=== PATIENT | male | born 1960 | race Caucasian/White ===

== ENCOUNTER 2016-05-29 20:25 | Inpatient (IN) ==
--- NOTE | 2016-05-29 21:36 | Emergency Department Note ---
Disposition Clinical Impression: Diabetes Qualifiers: Diabetes mellitus type: type 1 Diabetes mellitus complication status: with unspecified complications Qualified Code(s): E10.8 - Type 1 diabetes mellitus with unspecified complications Cellulitis, leg Qualifiers: Laterality: right Qualified Code(s): L03.115 - Cellulitis of right lower limb Disposition: Admitted As Inpatient Condition: Fair Referrals: NO,PCP [Primary Care Provider] - Forms: ED Satisfaction Letter Time of Disposition: 22:13 Extremity Problem HPI - General Chief complaint: ED Extremity Problem,Nontraumatic Stated complaint: cellulitis right leg Time Seen by Provider: 05/29/16 21:30 Source: patient Mode of arrival: ambulatory Limitations: no limitations Nursing Notes Reviewed: Yes Vital Signs Reviewed: Yes - History of Present Illness HPI Narrative: 56-year-old with right leg pain and swelling with redness and warmth to touch that began last couple of days. Patient saw Dr. Mc who lanced a abscess on the bottom of his foot on Thursday. Noted some redness and swelling. Patient does have a history of blood clots and is on Coumadin. Pt Subjective Complaint: extremity pain, extremity swelling Onset (ago): day(s) Consistency: constant Injury Location: right, lower extremity Pain Scale: 9 Quality: aching Radiation: none Improves with: nothing Worsens with: nothing - Related Data Home Medications Medication Instructions Recorded Confirmed Allopurinol [Zyloprim 100 MG] 100 mg PO DAILY 05/10/15 01/10/16 Aspirin [Adult Low Dose Aspirin EC] 81 mg PO DAILY 05/10/15 01/10/16 Cholecalciferol (Vitamin D3) 5,000 unit PO DAILY 05/10/15 01/10/16 [Vitamin D3] Exenatide [Byetta] 10 mcg SQ BID 05/10/15 01/10/16 Gabapentin [Neurontin] 300 mg PO BID 05/10/15 01/10/16 Insulin Glargine [Lantus] 70 units SQ BID 05/10/15 01/10/16 Insulin Human Regular [HumuLIN R] 25 units SQ TIDWM 05/10/15 01/10/16 Isosorbide MONOnitrate (24 HR) 30 mg PO DAILY 05/10/15 01/10/16 [Imdur] Levothyroxine Sodium [Synthroid] 200 mcg PO DAILY 05/10/15 01/10/16 Metoprolol [Lopressor] 100 mg PO BID 05/10/15 01/10/16 Rosuvastatin [Crestor] 40 mg PO DAILY 05/10/15 01/10/16 Nitroglycerin [Nitrostat] 0.4 mg SL AD PRN 07/15/15 01/10/16 Omeprazole [PriLOSEC] 40 mg PO DAILY 01/10/16 01/10/16 Warfarin [Coumadin] 10 mg PO QPM 01/10/16 01/10/16 Previous Rx's Medication Instructions Recorded Furosemide [Lasix] 80 mg PO BID 30 Days 07/19/15 Amlodipine [Norvasc] 10 mg PO DAILY #60 tablet 08/08/15 Lisinopril [Zestril] 10 mg PO DAILY #30 tablet 08/08/15 Cephalexin [Keflex] 250 mg PO BID 5 Days 01/13/16 Tramadol HCl [Ultram] 50 mg PO QID PRN #20 tab 03/30/16 HYDROcodone/Acet 5/325 mg [[place] 1 tab PO Q6H PRN #10 tab 05/26/16 5-325 mg] Allergies Allergy/AdvReac Type Severity Reaction Status Date / Time Iodinated Contrast Media - Allergy Swelling Verified 05/29/16 21:03 Oral and of Lip/Tongue/Throat Constitutional: Reports: chills. Denies: fever, weakness, weight change Eyes: Denies: eye pain, eye discharge, vision change ENT ED: Denies: ear pain, throat pain, dental pain, hearing loss, epistaxis, congestion, dysphagia Cardiovascular: Denies: chest pain, palpitations, dyspnea on exertion, edema, syncope Respiratory: Denies: cough, dyspnea, wheezes, hemoptysis, stridor Gastrointestinal: Denies: abdominal pain, nausea, vomiting, diarrhea, constipation, hematemesis, melena, hematochezia Genitourinary: Denies: urgency, dysuria, frequency, hematuria Musculoskeletal: Reports: arthralgia. Denies: back pain, neck pain, myalgia Integumentary: Denies: rash, abrasion, lesions Neurological: Denies: headache, weakness, numbness, paresthesias, confusion, abnormal gait, vertigo Psychiatric: Denies: anxiety, depression, suicidal thoughts, homicidal thoughts , auditory hallucinations, visual hallucinations Endocrine: Denies: fatigue Hematological/Lymphatic: Denies: easy bleeding, easy bruising Allergic/Immunologic: Denies: facial swelling, urticaria Past Medical History - Past Medical History Medical history: Reports: arthritis, atrial fibrillation, CHF, COPD, coronary artery disease, DVT, diabetes, GERD, hyperlipidemia, hypertension, kidney stones , myocardial infarction, osteoporosis, peripheral artery disease, renal disease , thyroid disease, venous stasis, other Surgical history: Reports: angioplasty/stent, LE vascular intervention, orthopedic, other, other Psychiatric history: Reports: no psych history - Social History Smoking Status: Former smoker Smokeless Tobacco Status: No Alcohol use: Reports: none Drug use: Reports: none Physical Exam - General Limitations: no limitations General appearance: alert, in no apparent distress - Head Head exam: atraumatic, normocephalic, normal inspection - Eye Eye exam: Present: normal appearance - ENT ENT exam: normal exam, normal oropharynx, mucous membranes moist - Neck Neck exam: Present: normal inspection, full ROM, trachea midline - Respiratory Respiratory exam: Present: normal lung sounds bilaterally - Cardiovascular Cardiovascular exam: Present: regular rate, normal rhythm, normal heart sounds - Abdominal Exam Abdominal exam: Present: soft, Non-Tender. Absent: tenderness, distention, guarding, rebound, rigidity - Expanded Lower Extremity Exam Lower leg exam: Present: tenderness, erythema (Anteriorly warm to touch) Neurovascular/Tendon exam: Absent: motor deficit, sensory deficit, tendon deficit Gait: observed and normal - Back Exam Back exam: Present: normal inspection, full ROM. Absent: tenderness - Neurological Exam Neurological exam: Present: alert, oriented X3 - Psychiatric Psychiatric exam: Present: normal affect, normal mood - Skin Skin exam: Present: warm, dry, intact, normal color Course - Reevaluation(s) Reevaluation #1: 56-year-old with a history of diabetes comes in with increasing redness anterior right lower leg. Warm to touch. Consistent with cellulitis. Glucose is elevated at 600. Patient will be admitted for IV antibiotics and treatment of his hyperglycemia. The patient's CO2 on his Chem-7 is 26 does not appear to be acidotic. Time: 22:19 - Consultations Consultation #1: Discussed with , admit. Time: 22:19 Vital Signs Temperature 98.9 F 05/29/16 20:58 Pulse Rate 85 05/29/16 20:58 Respiratory Rate 20 05/29/16 20:58 Blood Pressure 167/77 05/29/16 20:58 O2 Sat by Pulse Oximetry 96 05/29/16 20:58 Temperature 98.9 F 05/29/16 20:58 Pulse Rate 93 05/29/16 22:25 Respiratory Rate 18 05/29/16 22:25 Blood Pressure 179/87 05/29/16 22:25 O2 Sat by Pulse Oximetry 96 05/29/16 20:58 Oxygen Delivery Oxygen Delivery Room Air Extremity Problem, Nontraumati - Lab Data Lab results reviewed: Yes I reviewed the patient's lab results. Result diagrams: 05/29/16 21:46 05/29/16 21:46 Lab Results 05/29/16 05/29/16 05/29/16 Range/Units 21:46 21:46 21:46 WBC 9.7 (4.3-11.1) K/mcL RBC 3.99 L (4.19-5.50) M/mcL Hgb 11.5 L (12.9-16.9) g/dL Hct 34.7 L (37.5-50.1) % MCV 87.0 (83.0-100.0) fL MCH 28.8 (28.0-33.3) pg MCHC 33.1 (31.6-35.5) g/dL RDW 13.7 (11.5-14.5) % Plt Count 232 (140-400) K/mcL MPV 10.2 (9.4-12.4) fL Immature Gran % 0.4 (0-4) % Seg Neutrophils % 69.3 % Lymphocytes % 14.8 % Monocytes % 9.5 % Eosinophils % 5.4 % Basophils % 0.6 % Neutrophils # 6.7 (1.6-8.9) K/mcL Lymphocytes # 1.4 (0.6-4.6) K/mcL Monocytes # 0.9 (0.0-1.3) K/mcL Eosinophils # 0.5 (0.0-0.6) K/mcL Basophils # 0.1 (0.0-0.2) K/mcL Immature Plt Fraction 4.5 (1.1-6.1) % ESR 104 H (0-10) mm/hr Sodium 133 L (136-145) mEq/L Potassium 4.4 (3.5-4.5) mEq/L Chloride 93 L (98-109) mEq/L Carbon Dioxide 26 (19-29) mEq/L BUN 74 H (8-26) mg/dL Creatinine 3.69 H (0.72-1.25) mg/dL Est GFR ( Amer) 21 L (> 60) Est GFR (Non-Af Amer) 17 L (> 60) BUN/Creatinine Ratio 20 (6-26) Glucose 647 H* (70-99) mg/dL Calculated Osmolality 328 H (280-300) Calcium 9.0 (8.6-10.8) mg/dL Beta-Hydroxybutyric Acd (0.02-0.27) mmol/L 05/29/16 Range/Units 21:46 WBC (4.3-11.1) K/mcL RBC (4.19-5.50) M/mcL Hgb (12.9-16.9) g/dL Hct (37.5-50.1) % MCV (83.0-100.0) fL MCH (28.0-33.3) pg MCHC (31.6-35.5) g/dL RDW (11.5-14.5) % Plt Count (140-400) K/mcL MPV (9.4-12.4) fL Immature Gran % (0-4) % Seg Neutrophils % % Lymphocytes % % Monocytes % % Eosinophils % % Basophils % % Neutrophils # (1.6-8.9) K/mcL Lymphocytes # (0.6-4.6) K/mcL Monocytes # (0.0-1.3) K/mcL Eosinophils # (0.0-0.6) K/mcL Basophils # (0.0-0.2) K/mcL Immature Plt Fraction (1.1-6.1) % ESR (0-10) mm/hr Sodium (136-145) mEq/L Potassium (3.5-4.5) mEq/L Chloride (98-109) mEq/L Carbon Dioxide (19-29) mEq/L BUN (8-26) mg/dL Creatinine (0.72-1.25) mg/dL Est GFR ( Amer) (> 60) Est GFR (Non-Af Amer) (> 60) BUN/Creatinine Ratio (6-26) Glucose (70-99) mg/dL Calculated Osmolality (280-300) Calcium (8.6-10.8) mg/dL Beta-Hydroxybutyric Acd 0.26 (0.02-0.27) mmol/L - Radiology Data Radiology results reviewed: Yes I reviewed the patient's radiology results. Tibia/Fibula X-Ray 05/29/16 21:33 IMPRESSION: Generalized soft tissue swelling/edema without underlying acute osseous abnormality. D/ / 05/29/2016 22:21:18 Lurdes Hagan MD / keyona Interpreting Provider: Lurdes Hagan MD As Doppler was negative for DVT
[2016-05-29 21:53] LABS: Basophils # 0.1 K/mcL (0.0-0.2); Basophils % 0.6 %; Eosinophils # 0.5 K/mcL (0.0-0.6); Eosinophils % 5.4 %; Hematocrit 34.7 % (37.5-50.1); Hemoglobin 11.5 g/dL (12.9-16.9); Immature Granulocytes % 0.4 % (0-4); Immature Platelets 4.5 % (1.1-6.1); Lymphocytes # 1.4 K/mcL (0.6-4.6); Lymphocytes % 14.8 %; Mean Corpuscular HGB Conc 33.1 g/dL (31.6-35.5); Mean Corpuscular Hemoglobin 28.8 pg (28.0-33.3); Mean Platelet Volume 10.2 fL (9.4-12.4); Monocytes # 0.9 K/mcL (0.0-1.3); Monocytes % 9.5 %; Neutrophils # 6.7 K/mcL (1.6-8.9); Platelet Count 232 K/mcL (140-400); Red Blood Count 3.99 M/mcL (4.19-5.50); Red Cell Distribution Width 13.7 % (11.5-14.5); Segmented Neutrophils % 69.3 %
[2016-05-29 22:04] LABS: Potassium 4.4 mEq/L (3.5-4.5)
[2016-05-29] MEDS ORDERED: Insulin Human Regular 10 UNIT in 0.9 % Sodium Chloride 10 ML IV ONE (22:11)
[2016-05-29] MEDS ORDERED: Piperacillin/Tazobactam 3.375 GM in D5% in Water (Mini-Bag+) 100 ML IVPB ONE (22:13)
[2016-05-29] MEDS ORDERED: 0.9 % Sodium Chloride 500 ML IVC ONE (23:59)
[2016-05-30] MEDS ORDERED: Nitroglycerin 0.4 MG TAB.SUBL SL PRN (02:25)
[2016-05-30] MEDS ORDERED: *HR* Dextrose 50 % in Water (Syg) 50 ML SYRINGE IVP PRN (02:27)
[2016-05-30] MEDS ORDERED: Dextrose Gel 15 GM PO PRN ×2 (02:27)
[2016-05-30] MEDS ORDERED: D5% in Water 1,000 ML IVC PRN (02:27)
[2016-05-30] MEDS ORDERED: Naloxone 0.4 MG/ML INJ IVP PRN (02:28)
[2016-05-30] MEDS ORDERED: Acetaminophen 325 MG TABLET PO PRN (02:30)
--- NOTE | 2016-05-30 02:37 | Internal Med History&Physical ---
Date of Encounter: 05/30/16 Time of Encounter: 02:00 Assessment and Plan (1) Cellulitis Current visit: Yes Status: Acute We will treat him with vancomycin and Zosyn. Qualifiers: Site of cellulitis: extremity Site of cellulitis of extremity: lower extremity Laterality: right Qualified Code(s): L03.115 - Cellulitis of right lower limb (2) Chronic kidney disease, stage IV (severe) Current visit: Yes Status: Chronic Avoid nephrotoxic medications. Monitor renal function (3) PETE (obstructive sleep apnea) Current visit: Yes Status: Chronic Pt does not want CPAP tonight. Will resume home CPAP settings from tomorrow. (4) Diabetes mellitus Current visit: Yes Status: Chronic Patient has hypoglycemia and seem to have poor control. Will check hemoglobin A1c. Resume home insulin dosing and start sliding scale insulin. Qualifiers: Diabetes mellitus type: type 2 Diabetes mellitus complication status: with kidney complications Diabetes mellitus complication detail: with chronic kidney disease Diabetes mellitus usp insulin use: with intermediate frame tender use Chronic kidney disease stage: stage 4 (severe) Qualified Code(s): E11.22 - Type 2 diabetes mellitus with diabetic chronic kidney disease; N18.4 - Chronic kidney disease, stage 4 (severe); Z79.4 - intermediate frame tender (current) use of insulin (5) Venous stasis dermatitis of both lower extremities Current visit: Yes Status: Chronic (6) Hyperglycemia Current visit: Yes Status: Acute Pt seem to have uncontrolled DM. High dose sliding scale insulin and close monitoring of accuchecks (7) CAD (coronary artery disease) Current visit: Yes Status: Chronic Continue home medications Qualifiers: Coronary Disease-Associated Artery/Lesion type: [place] artery [place] vs. transplanted heart: [place] heart Associated angina: without angina Qualified Code(s): I25.10 - Atherosclerotic heart disease of [place] coronary artery without angina pectoris (8) Chronic anticoagulation Current visit: Yes Status: Chronic Monitor INR and warfarin dosing per pharmacy Internal Medicine - H&P: HPI Chief complaint: Right leg pain Admitted From: Emergency Dept Plans for Post Hospital Care: Home History of present illness: Mr. Oneal is a 56 year old male with past medical history significant for insulin-dependent diabetes mellitus, peripheral neuropathy, hypertension, CKD, CAD, CHF, DVT / venous stasis, atrial fibrillation - on anticoagulant warfarin, PETE - on home CPAP. He apparently had right foot abscess drained by Dr Mc, on 05/27/16. He apparently noticed redness and pain of the right leg on . Reports burning pain (7/10) and itching of the right leg; non radiating; had associated subjective fever at home. No worsening on weight bearing. He denies chest pain, shortness of breath, abdominal pain, dysuria, hematuria, bowel problems. He was evaluated in the emergency department and except right leg showed generalized soft tissue swelling/edema without underlying acute osseous abnormality. Preliminary report on venous Doppler was negative for DVT. He was given Zosyn for cellulitis and admitted to the hospitalist service for further management Past Med Surg Social Fam HX - Past Medical History Medical history: arthritis, atrial fibrillation, CHF, COPD, coronary artery disease, DVT, diabetes, GERD, hyperlipidemia, hypertension, kidney stones, myocardial infarction, osteoporosis, peripheral artery disease, renal disease, thyroid disease, venous stasis, other Psychiatric history: no psych history - Past Surgical History Surgical History: angioplasty/stent, LE vascular intervention, orthopedic, other , other - Social History Smoking Status: Former smoker Smokeless Tobacco Status: No Alcohol use: none Drug use: none - Family History Mother Living Status: Hx Family Cancer: Yes (Stomach Cancer) Hx Family Endocrine Disorder: Yes Father Living Status: Hx Family Cardiac Disorders: Yes ([place]) Hx Family Cancer: Yes Hx Family Endocrine Disorder: Yes Internal Medicine - H&P: Meds Allopurinol [Zyloprim 100 MG] 100 mg PO DAILY 05/10/15 [History] Aspirin [Adult Low Dose Aspirin EC] 81 mg PO DAILY 05/10/15 [History] Cholecalciferol (Vitamin D3) [Vitamin D3] 5,000 unit PO DAILY 05/10/15 [History] Gabapentin [Neurontin] 300 mg PO BID 05/10/15 [History] Insulin Human Regular [HumuLIN R] 0 units SQ TIDWM 05/10/15 [History] Isosorbide MONOnitrate (24 HR) [Imdur] 30 mg PO DAILY 05/10/15 [History] Levothyroxine Sodium [Synthroid] 200 mcg PO QAM 05/10/15 [History] Rosuvastatin [Crestor] 40 mg PO HS 05/10/15 [History] Nitroglycerin [Nitrostat] 0.4 mg SL AD PRN 07/15/15 [History] Furosemide [Lasix] 80 mg PO BID 30 Days 07/19/15 [Rx] Amlodipine [Norvasc] 10 mg PO DAILY #60 tablet 08/08/15 [Rx] Lisinopril [Zestril] 10 mg PO DAILY #30 tablet 08/08/15 [Rx] Omeprazole [PriLOSEC] 40 mg PO DAILY 01/10/16 [History] Warfarin [Coumadin] 10 mg PO QPM 01/10/16 [History] Calcitriol [Rocaltrol] 0.25 mcg PO DAILY 05/29/16 [History] Insulin Glargine,Hum.rec.anlog [Basaglar Kwikpen U-100] 50 unit SQ BID 05/29/16 [History] Metoprolol Succinate 100 mg PO DAILY 05/29/16 [History] Allergies Iodinated Contrast Media - Oral and Allergy (Verified 05/29/16 21:03) Swelling of Lip/Tongue/Throat All Systems PM: A 10-system review of systems was performed and is negative for pertinent findings except as documented above in the HPI. - Constitutional Vitals: Temp Pulse Resp BP Pulse Ox 99.5 F 88 18 155/73 94 05/30/16 00:15 05/30/16 00:15 05/30/16 00:15 05/30/16 00:15 05/30/16 00:15 Exam: General: Not in acute distress at the time of my evaluation. Obese HEENT: Oral mucosa is dry. No conjunctival palor or scleral icterus Neck: No obvious neck swellings Lungs: Clear to auscultation Cardiac: Regular rate and rhythm. No significant murmurs Abdomen: Soft, non tender. Bowel sounds present Genitourinary: No zimmer catheter Neurological: Alert and oriented. No gross localizing deficits Psych: Not aggressive or agitated Extremities: There is bilateral lower extremity swelling, changes of chronic venous stasis. There is erythema, local warmth, tenderness of the right leg, extending below the knee. This dressing the right foot. Skin: Chronic changes of venous stasis of the lower extremities Internal Med - H&P Results - Labs CBC & Chem 7: 05/29/16 21:46 05/29/16 21:46 - Impressions ITS Impressions Tibia/Fibula X-Ray 04/20/17 21:33 IMPRESSION: Generalized soft tissue swelling/edema without underlying acute osseous abnormality. D/ / 05/29/2016 22:21:18 Lureds Hagan MD / keyona Interpreting Provider: Lurdes Hagan MD - VTE Reasons for not Prescribing Prophylaxis: Not indicated-Anticoagulated or INR therapeutic
[2016-05-30] MEDS ORDERED: Vancomycin 2,000 MG in D5% in Water 250 ML IVPB SCH (03:00)
[2016-05-30 04:14] LABS: Basophils # 0.1 K/mcL (0.0-0.2); Basophils % 0.5 %; Eosinophils # 0.3 K/mcL (0.0-0.6); Eosinophils % 2.8 %; Hemoglobin 11.1 g/dL (12.9-16.9); Immature Granulocytes % 0.6 % (0-4); Lymphocytes # 1.1 K/mcL (0.6-4.6); Lymphocytes % 9.6 %; Mean Corpuscular HGB Conc 32.6 g/dL (31.6-35.5); Mean Corpuscular Hemoglobin 28.5 pg (28.0-33.3); Mean Corpuscular Volume 87.4 fL (83.0-100.0); Mean Platelet Volume 10.8 fL (9.4-12.4); Monocytes # 0.9 K/mcL (0.0-1.3); Monocytes % 8.5 %; Neutrophils # 8.5 K/mcL (1.6-8.9); Platelet Count 205 K/mcL (140-400); Red Blood Count 3.89 M/mcL (4.19-5.50); Red Cell Distribution Width 13.9 % (11.5-14.5)
[2016-05-30 04:16] LABS: INR 2.7; Prothrombin Time 29.7 Seconds (9.4-12.1)
[2016-05-30] MEDS: Vancomycin 2,000 MG in D5% in Water 500 ML IVPB SCH (04:25)
[2016-05-30 04:32] LABS: Hemoglobin A1C 12.8 %
[2016-05-30 04:35] LABS: Calcium 8.7 mg/dL (8.6-10.8); Magnesium 1.8 mg/dL (1.6-2.6); Potassium 4.4 mEq/L (3.5-4.5)
[2016-05-30] MEDS ORDERED: Insulin LISPRO 300 UNITS/3 ML VIAL SQ ONE (05:35)
[2016-05-30] MEDS: Insulin LISPRO 300 UNITS/3 ML VIAL SQ SCH ×5 (07:51→17:20)
[2016-05-30] MEDS: Metoprolol XL (24 HR) Succ 50 MG TAB.ER.24H PO SCH (07:52)
[2016-05-30] MEDS: Aspirin Enteric Coated 81 MG Tablet PO SCH (07:53)
[2016-05-30] MEDS: Gabapentin 300 MG CAPSULE PO SCH ×2 (07:53→22:14)
[2016-05-30] MEDS: Isosorbide MONOnitrate (24 HR) 30 MG TAB.ER.24H PO SCH (07:53)
[2016-05-30] MEDS: Cholecalciferol (D-3) 1,000 UNIT TABLET PO SCH (07:53)
[2016-05-30] MEDS: Furosemide 40 MG TABLET PO SCH ×2 (07:54→17:19)
[2016-05-30] MEDS: amLODIPine 5 MG TABLET PO SCH (07:54)
[2016-05-30] MEDS ORDERED: NON-FORMULARY MEDICATION 1 EACH EACH (Insulin Glargine,Hum.Rec.Anlog [Basaglar Kwikpen U-1 SQ SCH (09:00)
[2016-05-30] MEDS ORDERED: Insulin DETEMIR 100 UNIT/ML X5UNITS SQ SCH (09:00)
[2016-05-30] MEDS ORDERED: Piperacillin/Tazobactam 3.375 GM in D5% in Water (Mini-Bag+) 100 ML IVPB SCH ×2 (10:00)
--- NOTE | 2016-05-30 14:05 | Event Note ---
Date of Encounter: 05/30/16 Time of Encounter: 09:30 Patient seen and examined. On examination, patient is sitting upright on the side of his bed. Patient sustained the redness and swelling in his legs appears better. He states he does not have much sensation to his foot and states ambulation is not painful at this time. Per his chart, Dr. Mc to debrided his right foot wound on 05/27/16. He states the day following this procedure that he started to develop pain and erythema to his right lower leg. We will continue vancomycin and Zosyn. Wound cultured at this time. Tib-fib plain films consistent with soft tissue swelling. Doppler ultrasound negative for DVT. Market hyperglycemia noted. A1c 12.8%. Patient saying that his glucometer at home often reads "high." I have increased his basal and his sliding scale dosages. Hypertension noted this morning, patient currently normotensive. Patient has stage IV renal disease, currently stable. He states he has had a graft placed in his left arm in anticipation for dialysis. Patient was instructed to try to control the sugars however patient stating that he wants to have dialysis because he feels as if it will "clean me out." We will continue broad-spectrum coverage pending wound culture. We will get Dr. Mc on board as well for his recommendations. On examination, erythema to his right lower extremity has improved below the pen line from yesterday. ITS Impressions Tibia/Fibula X-Ray 05/29/16 21:33 IMPRESSION: Generalized soft tissue swelling/edema without underlying acute osseous abnormality. D/ / 05/29/2016 22:21:18 Lurdes Hagan MD / keyona Interpreting Provider: Lurdes Hagan MD
--- NOTE | 2016-05-30 16:40 | Podiatry Consult Note ---
Date of Encounter: 05/30/16 Time of Encounter: 16:40 Assessment and Plan (1) Diabetic ulcer of right foot Status: Chronic Dressing removed, Irrigated with saline Appears the same as assessed in office No appearance of infection at this time No warmth, edema, erythema to periwound and no drainage noted at this time Absence of white count Will order CRP Continue daily dressing changes to wound Cleanse with saline, apply adaptic and 4x4 Please call with any issues or concerns Follow up in clinic or wound care center 1-2 weeks after discharge Glucose 500-600. Will need tight glucose control Qualifiers: Diabetic foot ulcer location: other Diabetes mellitus type: type 2 Non- pressure ulcer stage: unspecified non-pressure ulcer stage Qualified Code(s): E11.621 - Type 2 diabetes mellitus with foot ulcer; L97.519 - Non-pressure chronic ulcer of other part of right foot with unspecified severity (2) Cellulitis, leg Status: Acute Qualifiers: Laterality: right Qualified Code(s): L03.115 - Cellulitis of right lower limb (3) Diabetes Status: Acute Qualifiers: Diabetes mellitus type: type 1 Diabetes mellitus complication status: with skin complications Diabetes mellitus complication detail: with foot ulcer Qualified Code(s): E10.621 - Type 1 diabetes mellitus with foot ulcer; L97.509 - Non-pressure chronic ulcer of other part of unspecified foot with unspecified severity (4) Chronic kidney disease, stage IV (severe) Status: Chronic (5) Venous stasis dermatitis of both lower extremities Status: Chronic History of Present Illness HPI: Mr. Oneal is a 56 year old male who we have been consulted on regarding a wound to the right foot. he has a past medical history significant for uncontrolled insulin-dependent diabetes mellitus, peripheral neuropathy, hypertension, CKD, CAD, CHF, DVT / venous stasis, atrial fibrillation - on anticoagulant warfarin, PETE - on home CPAP. completed a debridement of a diabetic ulcer of the right foot on 05/27. At the time no acute infection was noted. Dressings were applied and patient to follow up. Patient presented to ED with complaints of burning, drainage and pain to the wound and redness of the RLE. On arrival today patient is awake, alert and oriented. Dressing intact to right foot wound. Patient states at home he noticed a large amount of "pus in his shoe". Patient denies any fevers chills n/v or flu like symptoms Past Med Surg Social Fam HX - Past Medical History Medical history: arthritis, atrial fibrillation, CHF, COPD, coronary artery disease, DVT, diabetes, GERD, hyperlipidemia, hypertension, kidney stones, myocardial infarction, osteoporosis, peripheral artery disease, renal disease, thyroid disease, venous stasis, other Psychiatric history: no psych history - Past Surgical History Surgical History: angioplasty/stent, LE vascular intervention, orthopedic, other , other - Social History Smoking Status: Former smoker Smokeless Tobacco Status: No Alcohol use: none Drug use: none - Family History Mother Living Status: Hx Family Cancer: Yes (Stomach Cancer) Hx Family Endocrine Disorder: Yes Father Living Status: Hx Family Cardiac Disorders: Yes ([place]) Hx Family Cancer: Yes Hx Family Endocrine Disorder: Yes Medications and Allergies Allopurinol [Zyloprim 100 MG] 100 mg PO DAILY 05/10/15 [History] Aspirin [Adult Low Dose Aspirin EC] 81 mg PO DAILY 05/10/15 [History] Cholecalciferol (Vitamin D3) [Vitamin D3] 5,000 unit PO DAILY 05/10/15 [History] Gabapentin [Neurontin] 300 mg PO BID 05/10/15 [History] Isosorbide MONOnitrate (24 HR) [Imdur] 30 mg PO DAILY 05/10/15 [History] Levothyroxine Sodium [Synthroid] 200 mcg PO QAM 05/10/15 [History] Rosuvastatin [Crestor] 40 mg PO HS 05/10/15 [History] Nitroglycerin [Nitrostat] 0.4 mg SL AD PRN 07/15/15 [History] Furosemide [Lasix] 80 mg PO BID 30 Days 07/19/15 [Rx] Amlodipine [Norvasc] 10 mg PO DAILY #60 tablet 08/08/15 [Rx] Lisinopril [Zestril] 10 mg PO DAILY #30 tablet 08/08/15 [Rx] Omeprazole [PriLOSEC] 40 mg PO DAILY 01/10/16 [History] Warfarin [Coumadin] 10 mg PO QPM 01/10/16 [History] Calcitriol [Rocaltrol] 0.25 mcg PO DAILY 05/29/16 [History] Metoprolol Succinate 100 mg PO DAILY 05/29/16 [History] Clindamycin HCl 300 mg PO Q6H #28 capsule 05/31/16 [Rx] Insulin Glargine,Hum.rec.anlog [Basaglar Kwikpen U-100] 60 unit SQ BID #1 insuln.pen 05/31/16 [Rx] Insulin Human Regular [HumuLIN R] 0 units SQ TIDWM #1 ml 05/31/16 [Rx] Insulin Human Regular [HumuLIN R] 6 unit SQ TIDWM #1 mls 05/31/16 [Rx] Allergies Iodinated Contrast Media - Oral and Allergy (Verified 05/29/16 21:03) Swelling of Lip/Tongue/Throat All Systems Reviewed: A 10-system review of systems was performed and is negative for pertinent findings except as documented above in the HPI. Physical Exam - Constitutional Vitals: Temp Pulse Resp BP Pulse Ox 98.0 F 66 18 148/64 96 05/30/16 14:41 05/30/16 14:41 05/30/16 14:41 05/30/16 14:41 05/30/16 14:41 General appearance: cooperative Exam: General Examination: CONSTITUTIONAL: Alert, oriented, in no acute distress, non-toxic. EXTREMITIES: CFT 3 seconds all toes. Edema +2 and pedal pulses palpable. Stasis dermatitis noted to BLE SKIN: Skin with decreased turgor, decreased subcutaneous tissue, skin thin and shiny with trophic changes associated with comorbidities as described in history.. NEUROLOGIC: Minimal sensation to light touch Diabetic foot ulcer noted to plantar aspect of right foot between toes #1 and # 2. Dimensions [id number]. No undermining, tunneling, fluctuance, or sinus tracts noted. No drainage noted at this time. Nurse notes that dressing was dry in AM when she changed it after shift change. No appearance of abscess formation. No warmth, erythema, edema to darci wound area. Skin surrounding wound noted to have slightly blackened edges, this is from a silver nitrate stick used after debridement of the wound. No exposed underlying structures. Small amount of yellow fibrous tissue noted to center of wound surrounded by pink granulation tissue. Results - Labs Result Diagrams: 05/31/16 05:05 05/31/16 05:05 Labs: Abnormal lab results RBC 3.89 M/mcL (4.19-5.50) L 05/30/16 03:03 Hgb 11.1 g/dL (12.9-16.9) L 05/30/16 03:03 Hct 34.0 % (37.5-50.1) L 05/30/16 03:03 ESR 104 mm/hr (0-10) H 05/29/16 21:46 PT 29.7 Seconds (9.4-12.1) H 05/30/16 03:03 Sodium 135 mEq/L (136-145) L 05/30/16 03:03 BUN 71 mg/dL (8-26) H 05/30/16 03:03 Creatinine 3.45 mg/dL (0.72-1.25) H 05/30/16 03:03 Est GFR ( Amer) 22 (> 60) L 05/30/16 03:03 Est GFR (Non-Af Amer) 18 (> 60) L 05/30/16 03:03 Glucose 573 mg/dL (70-99) H* 05/30/16 03:03 POC Glucose 430 (58-89) H* 05/30/16 16:11 Hemoglobin A1c 12.8 % (-5.6) H 05/30/16 03:03 Calculated Osmolality 327 (280-300) H 05/30/16 03:03 H & H 05/30/16 Range/Units 03:03 Hgb 11.1 L (12.9-16.9) g/dL Hct 34.0 L (37.5-50.1) % All other labs normal. Consult Discharge Plan - Plan Instructions: Clindamycin (By mouth), Insulin Human Regular (Injection), Cellulitis (DC) Additional Instructions: Follow up with wound clinic within 1-2 weeks. Referrals: Rafael Mc DPM [Partnered Physician] - Prescriptions: Clindamycin HCl 300 mg PO Q6H #28 capsule Insulin Glargine,Hum.rec.anlog [Ruben Hernandez U-100] 60 unit SQ BID #1 insuln.pen Insulin Human Regular [HumuLIN R] 0 units SQ TIDWM #1 ml Insulin Human Regular [HumuLIN R] 6 unit SQ TIDWM #1 mls
[2016-05-30] MEDS: *HR* OxyCODONE Immed Rel 5 MG TABLET PO PRN (17:18)
[2016-05-30] MEDS: Piperacillin/Tazobactam 3.375 GM in D5% in Water (Mini-Bag+) 100 ML IVPB SCH ×2 (17:20→23:54)
[2016-05-30] MEDS ORDERED: Warfarin perPT PO PRN (18:00)
[2016-05-30] MEDS ORDERED: *HR* Warfarin 10 MG TABLET PO SCH (18:00)
--- NOTE | 2016-05-30 20:28 | Venous Imaging Report ---
LE Venous Duplex Patient Name:Silviano Oneal Order Number:[id number] Procedure Date:05/29/2016 Date:1960Age:56 yrs Gender:Male Location:[facility] [place] ED Room #: ED16 Fisheries Director:Marielena Burdick Referring MD:Adam Phillips MD vacuum cleaner repair person:None Reading MD:Josiah Alford MD Study Quality:36 Primary Indications:Right Leg redness and swelling Secondary Indications: Risk Factors Yes/No Hx of DVT Anticoagulants Impressions: Right lower extremity: normal superficial and deep exam. Recommendations: Test completed on 05/29/2016 at 10:36:00 pm. Critical findings reported to Dr. Phillips-ED- by phone at 10:40:00 pm on 05/29/2016 by Marielena Burdick. Lower Extremity Venous Duplex Side Vein Compress Spontaneous Flow Augment Diameter (cm) Depth (cm) Right Distal Iliac Normal Yes Phasic Yes Right Common Femoral Normal Yes Phasic Yes Right Superficial Femoral Normal Yes Phasic Yes Right Popliteal Normal Yes Phasic Yes Right Posterior Tibial Normal Yes Phasic Yes Right Peroneal Normal Yes Phasic Yes Right Saphenofemoral [place] Normal Yes Phasic Yes Right Great Saphenous Normal Yes Phasic Yes Right Lesser Saphenous Normal Yes Phasic Yes Left Common Femoral Normal Yes Phasic Yes Updated by Josiah Alford MD on 05/30/2016 8:24:17 PM electronically signed on 05/30/2016 8:24:41 PM with status of Final
[2016-05-30] MEDS ORDERED: Insulin LISPRO 300 UNITS/3 ML VIAL SQ SCH (21:00)
[2016-05-30] MEDS: Insulin DETEMIR 100 UNIT/ML X5UNITS SQ SCH (22:14)
[2016-05-31] MEDS: Vancomycin 2,000 MG in D5% in Water 500 ML IVPB SCH (04:20)
[2016-05-31 05:35] LABS: Basophils # 0.1 K/mcL (0.0-0.2); Basophils % 0.5 %; Eosinophils # 0.7 K/mcL (0.0-0.6); Hematocrit 34.3 % (37.5-50.1); Hemoglobin 11.1 g/dL (12.9-16.9); Immature Granulocytes % 0.3 % (0-4); Lymphocytes # 1.3 K/mcL (0.6-4.6); Lymphocytes % 14.3 %; Mean Corpuscular HGB Conc 32.4 g/dL (31.6-35.5); Mean Corpuscular Hemoglobin 28.4 pg (28.0-33.3); Mean Corpuscular Volume 87.7 fL (83.0-100.0); Mean Platelet Volume 10.6 fL (9.4-12.4); Monocytes # 0.8 K/mcL (0.0-1.3); Monocytes % 8.6 %; Neutrophils # 6.2 K/mcL (1.6-8.9); Platelet Count 213 K/mcL (140-400); Red Blood Count 3.91 M/mcL (4.19-5.50); Segmented Neutrophils % 68.3 %
[2016-05-31 05:44] LABS: Calcium 8.6 mg/dL (8.6-10.8); Potassium 4.4 mEq/L (3.5-4.5)
[2016-05-31 05:52] LABS: INR 2.4; Prothrombin Time 26.7 Seconds (9.4-12.1)
[2016-05-31 07:06] VITALS: BP 124/76
[2016-05-31] MEDS: Gabapentin 300 MG CAPSULE PO SCH (07:44)
[2016-05-31] MEDS: Aspirin Enteric Coated 81 MG Tablet PO SCH (07:46)
[2016-05-31] MEDS: Isosorbide MONOnitrate (24 HR) 30 MG TAB.ER.24H PO SCH (07:47)
[2016-05-31] MEDS: Cholecalciferol (D-3) 1,000 UNIT TABLET PO SCH (07:47)
[2016-05-31] MEDS: Metoprolol XL (24 HR) Succ 50 MG TAB.ER.24H PO SCH (07:48)
[2016-05-31] MEDS: Furosemide 40 MG TABLET PO SCH (07:49)
[2016-05-31] MEDS: amLODIPine 5 MG TABLET PO SCH (07:49)
[2016-05-31] MEDS: Piperacillin/Tazobactam 3.375 GM in D5% in Water (Mini-Bag+) 100 ML IVPB SCH (07:54)
[2016-05-31] MEDS: Insulin LISPRO 300 UNITS/3 ML VIAL SQ SCH ×4 (07:57→12:08)
[2016-05-31] MEDS: *HR* OxyCODONE Immed Rel 5 MG TABLET PO PRN (08:26)
[2016-05-31] MEDS: Insulin DETEMIR 100 UNIT/ML X5UNITS SQ SCH (08:27)
--- NOTE | 2016-05-31 12:33 | Discharge Summary ---
Date of Encounter: 05/31/16 Time of Encounter: 09:45 - Discharge Diagnosis (1) Cellulitis, leg Priority: Primary Status: Acute Comments: Physical examination consistent with right lower extremity cellulitis. Treated with vancomycin and Zosyn during admission, wound culture pending at discharge, will send home on clindamycin and have him follow up outpatient with wound clinic next week. No leukocytosis. Inflammatory markers mildly elevated. Erythema and edema lessened during this admission. Qualifiers: Laterality: right Qualified Code(s): L03.115 - Cellulitis of right lower limb (2) COPD (chronic obstructive pulmonary disease) Priority: Secondary Status: Chronic Comments: No acute exacerbation Qualifiers: COPD type: unspecified COPD Qualified Code(s): J44.9 - Chronic obstructive pulmonary disease, unspecified (3) Hypothyroidism Priority: Secondary Status: Chronic Comments: TSH unremarkable last July, follow-up outpatient Qualifiers: Hypothyroidism type: unspecified Qualified Code(s): E03.9 - Hypothyroidism , unspecified (4) Chronic kidney disease, stage IV (severe) Priority: Secondary Status: Chronic Comments: Patient has graft in place for pending dialysis. Attempted to speak to the patient regarding his uncontrolled diabetes and his worsening renal function however he states that he wants to go on dialysis because he feels that will help him get cleaned out. Follow up outpatient with spouting installer. Renal function remained stable throughout this admission (5) Diabetes mellitus Priority: Secondary Status: Chronic Comments: Uncontrolled. A1c 12.8%. Patient stating that his glucometer home frequently reads high. His basal and his sliding scale insulins were increased during this admission and his glucose at time of discharge was down to 253, was above 600 upon presentation. We will increase his home doses of insulin. Attempted further education, patient not receptive of education. Qualifiers: Diabetes mellitus type: type 2 Diabetes mellitus complication status: with kidney complications Diabetes mellitus complication detail: with chronic kidney disease Diabetes mellitus long term care social worker insulin use: with shelter use Chronic kidney disease stage: stage 4 (severe) Qualified Code(s): E11.22 - Type 2 diabetes mellitus with diabetic chronic kidney disease; N18.4 - Chronic kidney disease, stage 4 (severe); Z79.4 - residential (current) use of insulin (6) Chronic anticoagulation Priority: Secondary Status: Chronic (7) Diabetic ulcer of right foot Priority: Secondary Status: Chronic Comments: Follow-up outpatient with podiatry. Qualifiers: Diabetic foot ulcer location: other Diabetes mellitus type: type 2 Non- pressure ulcer stage: unspecified non-pressure ulcer stage Qualified Code(s): E11.621 - Type 2 diabetes mellitus with foot ulcer; L97.519 - Non-pressure chronic ulcer of other part of right foot with unspecified severity (8) GERD (gastroesophageal reflux disease) Priority: Secondary Status: Chronic Comments: Denies current symptoms Qualifiers: Esophagitis presence: esophagitis presence not specified Qualified Code(s) : K21.9 - Gastro-esophageal reflux disease without esophagitis (9) PVD (peripheral vascular disease) Priority: Secondary Status: Chronic (10) Venous stasis dermatitis of both lower extremities Priority: Secondary Status: Chronic (11) Hypertension Priority: Secondary Status: Chronic Comments: Controlled on his regular home medications. Qualifiers: Hypertension type: essential hypertension Qualified Code(s): I10 - Essential (primary) hypertension (12) Sleep apnea Priority: Secondary Status: Chronic Qualifiers: Sleep apnea type: obstructive Qualified Code(s): G47.33 - Obstructive sleep apnea (adult) (pediatric) (13) CAD (coronary artery disease) Priority: Secondary Status: Chronic Comments: Patient denied chest pain throughout this admission Qualifiers: Coronary Disease-Associated Artery/Lesion type: [place] artery [place] vs. transplanted heart: [place] heart Associated angina: without angina Qualified Code(s): I25.10 - Atherosclerotic heart disease of [place] coronary artery without angina pectoris (14) DVT prophylaxis Priority: Primary Status: Acute Comments: Therapeutic on Coumadin (15) Morbid obesity with BMI of 40.0-44.9, adult Priority: Secondary Status: Chronic - Discharge Medications Prescriptions: Clindamycin HCl 300 mg PO Q6H #28 capsule Insulin Glargine,Hum.rec.anlog [Basaglar Kwikpen U-100] 60 unit SQ BID #1 insuln.pen Insulin Human Regular [HumuLIN R] 0 units SQ TIDWM #1 ml Insulin Human Regular [HumuLIN R] 6 unit SQ TIDWM #1 mls Home Medications: Allopurinol [Zyloprim 100 MG] 100 mg PO DAILY 05/10/15 [History] Aspirin [Adult Low Dose Aspirin EC] 81 mg PO DAILY 05/10/15 [History] Cholecalciferol (Vitamin D3) [Vitamin D3] 5,000 unit PO DAILY 05/10/15 [History] Gabapentin [Neurontin] 300 mg PO BID 05/10/15 [History] Isosorbide MONOnitrate (24 HR) [Imdur] 30 mg PO DAILY 05/10/15 [History] Levothyroxine Sodium [Synthroid] 200 mcg PO QAM 05/10/15 [History] Rosuvastatin [Crestor] 40 mg PO HS 05/10/15 [History] Nitroglycerin [Nitrostat] 0.4 mg SL AD PRN 07/15/15 [History] Furosemide [Lasix] 80 mg PO BID 30 Days 07/19/15 [Rx] Amlodipine [Norvasc] 10 mg PO DAILY #60 tablet 08/08/15 [Rx] Lisinopril [Zestril] 10 mg PO DAILY #30 tablet 08/08/15 [Rx] Omeprazole [PriLOSEC] 40 mg PO DAILY 01/10/16 [History] Warfarin [Coumadin] 10 mg PO QPM 01/10/16 [History] Calcitriol [Rocaltrol] 0.25 mcg PO DAILY 05/29/16 [History] Metoprolol Succinate 100 mg PO DAILY 05/29/16 [History] Clindamycin HCl 300 mg PO Q6H #28 capsule 05/31/16 [Rx] Insulin Glargine,Hum.rec.anlog [Basaglar Kwikpen U-100] 60 unit SQ BID #1 insuln.pen 05/31/16 [Rx] Insulin Human Regular [HumuLIN R] 0 units SQ TIDWM #1 ml 05/31/16 [Rx] Insulin Human Regular [HumuLIN R] 6 unit SQ TIDWM #1 mls 05/31/16 [Rx] Allergies/Adverse Reactions: Allergies Iodinated Contrast Media - Oral and Allergy (Verified 05/29/16 21:03) Swelling of Lip/Tongue/Throat Date of admission: 05/30/16 02:45 Primary care physician: PCP NO Consults: 05/30/16 11:32 Consult to Podiatry [CONS] Routine Consulting Provider: Podiatry [facility] Reason for Consult: s/p DM foot wound debridement 05/[address] Mc- cellulitis now. Vanc and Zosyn. Cx pending. Time Notified: 11:34 Call Completed: Yes Discharging clinician: Tracy Cleveland Anticipated date of discharge: 05/31/16 (f/u next week with wound clinic) - Patient Status Disposition: Home, Self-Care Condition: Fair Functional capacity at discharge: independent ambulation Overall status at discharge: patient is back to baseline - Discharge Instructions Follow Up With: Rafael Mc DPM [Partnered Physician] - Additional Instructions: Follow up with wound clinic within 1-2 weeks. - Diet and Activity Activity: increase activity as tolerated Diet: diabetic diet, low fat, low cholesterol, low salt diet Hospital course: Mr. Oneal is a 56 year old male with extensive past medical history including insulin-dependent diabetes, peripheral neuropathy, hypertension, chronic kidney disease stage IV, CAD, CHF, DVT/venous stasis, atrial fibrillation on anticoagulation with Coumadin, PETE on CPAP, morbid obesity. Patient had a diabetic foot ulcer to his right foot debrided on 05/27/16. At that point, no acute infection was noted. The following day, patient stating he started to notice pain and swelling to his right lower leg. Swelling and erythema got worse and the patient presented to the emergency department. Patient also endorses subjective fevers at home. Patient denied chest pain, shortness of breath, abdominal pain or pain with ambulation stating he does not have much feeling to his feet. Examination in the emergency department consistent with acute cellulitis and the patient was admitted to the hospitalist service for further evaluation and management. Plain films revealing soft tissue swelling without evidence of osteomyelitis. Podiatry was brought on board who felt his wound did not appear infected and there was no further intervention indicated. They cleared him for outpatient follow-up with the wound clinic 1 week after discharge. A wound culture was taken of this wound, follow up with wound clinic for results. As the patient's inflammatory markers were elevated and his erythema was still present to his right lower leg , improved from admission, he was sent home on clindamycin. While he was admitted, he was treated with vancomycin and Zosyn. His renal functioning remained stable throughout this admission. His glucose was noted to be over 600 upon arrival and his basal insulin sliding scale insulins were increased and on day of discharge, his glucose was around 250. He was educated several times regarding glucose and diabetes management and it is harmful effect on the kidneys however patient stating that he is looking forward to dialysis because he feels that will help clean him out. He was able to bear weight. Doppler ultrasound ruled out a DVT. His INR remained therapeutic throughout this admission. Per Dr. Mc, patient will likely need a total contact cast. Patient stating that he has been fitted for custom shoes several months ago but for some reason has not received them yet. No leukocytosis. No indicators for sepsis during this admission. He was discharged home in stable condition with close outpatient follow up with wound clinic recommended. ITS Impressions Tibia/Fibula X-Ray 05/29/16 21:33 IMPRESSION: Generalized soft tissue swelling/edema without underlying acute osseous abnormality. D/ / 05/29/2016 22:21:18 Lurdes Hagan MD / keyona Interpreting Provider: Lurdes Hagan MD - Time Spent with Patient Total time spent providing and/or coordinating discharge services: - Constitutional Vitals: Temp Pulse Resp BP Pulse Ox 98.1 F 63 16 124/76 96 05/31/16 07:00 05/31/16 07:00 05/31/16 07:00 05/31/16 07:00 05/31/16 07:00 General appearance: Present: A&O X 3, morbidly obese, pleasant, no acute distress, answers questions appropriately - Head Head exam: Present: atraumatic, normocephalic - Eye Eye exam: Present: PERRL, conjuntiva pink, sclera anicteric Pupils: Present: PERRL - Neck Neck exam general surgery: Present: supple, trachea midline. Absent: lymphadenopathy - Respiratory Respiratory exam: Present: decreased breath sounds. Absent: accessory muscle use, rales, respiratory distress, rhonchi, wheezes - Cardiovascular Cardiovascular exam: Present: RRR, +S1, +S2. Absent: diastolic murmur, gallop, rubs, systolic murmur - GI/Abdominal GI/Abdominal exam: Present: normal bowel sounds, soft, no peritoneal signs. Absent: distended, tenderness - Extremities Exam Extremities exam: Present: pedal edema, warm, radial pulses palpable and symetrical. Absent: calf tenderness, cyanotic - Expanded Lower Extremities Exam Lower Leg exam: Present: erythema, swelling. Absent: tenderness Ankle exam: Present: erythema, swelling. Absent: normal inspection, tenderness Foot/Toe exam: Present: erythema. Absent: normal inspection - Neurological Exam Neurological exam: Present: alert, CN II-XII intact, oriented X3, no focal deficits, strengths equal and symetr throughout. Absent: pronater drift, facial droop, speech deficit - Skin Skin exam: Present: dry, intact, normal color, warm - Expanded Skin Exam Type of lesion: Present: abrasion Distribution of rash: Present: RLE Description of rash: Present: discharge. Absent: tenderness - VTE Reasons for not Prescribing Prophylaxis: Not indicated-Anticoagulated or INR therapeutic
[2016-05-31] MEDS ORDERED: Aminoglycoside Consult 1 EACH MC ONE (13:29)
== END 2016-05-31 13:30 | disposition home or self-care (01) | DRG 380 ==
LOC: EMEROO 20:25 → 3BNU 20:25
PROVIDERS: ADMIT Internal Medicine; ATTEND Nurse Practitioner Family

== ENCOUNTER 2016-06-23 13:46 | Inpatient (IN) ==
[2016-06-23 16:38] LABS: Basophils # 0.1 K/mcL (0.0-0.2); Basophils % 0.4 %; Eosinophils # 0.2 K/mcL (0.0-0.6); Eosinophils % 1.8 %; Hematocrit 34.5 % (37.5-50.1); Hemoglobin 11.3 g/dL (12.9-16.9); Immature Granulocytes % 0.5 % (0-4); Lymphocytes # 1.7 K/mcL (0.6-4.6); Lymphocytes % 13.4 %; Mean Corpuscular HGB Conc 32.8 g/dL (31.6-35.5); Mean Corpuscular Hemoglobin 28.3 pg (28.0-33.3); Mean Corpuscular Volume 86.5 fL (83.0-100.0); Mean Platelet Volume 10.7 fL (9.4-12.4); Monocytes # 1.2 K/mcL (0.0-1.3); Monocytes % 9.3 %; Neutrophils # 9.6 K/mcL (1.6-8.9); Platelet Count 220 K/mcL (140-400); Red Blood Count 3.99 M/mcL (4.19-5.50); Red Cell Distribution Width 13.8 % (11.5-14.5); Segmented Neutrophils % 74.6 %
[2016-06-23 16:40] LABS: INR 1.5; Prothrombin Time 16.7 Seconds (9.4-12.1)
[2016-06-23 16:58] LABS: Potassium 4.2 mEq/L (3.5-4.5)
[2016-06-23 17:00] LABS: Calcium 9.1 mg/dL (8.6-10.8)
[2016-06-23] MEDS ORDERED: Dextrose Gel 15 GM PO PRN ×2 (17:27)
[2016-06-23] MEDS ORDERED: *HR* Dextrose 50 % in Water (Syg) 50 ML SYRINGE IVP PRN (17:27)
[2016-06-23] MEDS ORDERED: D5% in Water 1,000 ML IVC PRN (17:27)
--- NOTE | 2016-06-23 17:54 | Podiatry History & Physical ---
History of Present Illness Chief complaint: Diabetic foot Ulcer lateral aspect right HPI: Mr. Oneal is a 56 year old male, who is been treated as an outpatient with local wound care by mouth antibiotics and attempted offloading with custom molded shoes with regression of a foot ulcer in the plantar aspect of his right second MTPJ. Patient's wound was originally isolated to just the dermis is now progressed into the subcutaneous tissue with tunneling 3 cm proximal at 6 o' clock position toward his heel. He did present with seropurulent drainage which was medially cultured after localized debridement of the wound today in clinic because of the purulent drainage he was then admitted with regression of the wound to subcutaneous tased level tunneling. Patient is a long history of multiple comorbidities which places him at a very high risk category for serious complication. Please see medical history. He has not presented with any specific history of recent chest pain nausea vomiting shortness of breath fever chills. All Systems Reviewed: A 10-system review of systems was performed and is negative for pertinent findings except as documented above in the HPI. - Constitutional Constitutional: as per HPI - Cardiovascular Cardiovascular: edema, leg ulcers, pedal edema - Musculoskeletal Musculoskeletal: abnormal gait, limited range of motion, numbness, tingling Past Med Surg Social Fam HX - Past Medical History Medical history: arthritis, atrial fibrillation, CHF, COPD, coronary artery disease, DVT, diabetes, GERD, hyperlipidemia, hypertension, kidney stones, myocardial infarction, osteoporosis, peripheral artery disease, renal disease, thyroid disease, venous stasis, other Psychiatric history: no psych history - Past Surgical History Surgical History: angioplasty/stent, LE vascular intervention, orthopedic, other , other - Social History Smoking Status: Former smoker Smokeless Tobacco Status: No Alcohol use: none Drug use: none - Family History Mother Living Status: Hx Family Cancer: Yes (Stomach Cancer) Hx Family Endocrine Disorder: Yes Father Family Member Ethnicity: Non- Living Status: Hx Family Cardiac Disorders: Yes ([place]) Hx Family Cancer: Yes Hx Family Endocrine Disorder: Yes Medications and Allergies Allopurinol [Zyloprim 100 MG] 100 mg PO DAILY 05/10/15 [History] Aspirin [Adult Low Dose Aspirin EC] 81 mg PO DAILY 05/10/15 [History] Cholecalciferol (Vitamin D3) [Vitamin D3] 5,000 unit PO DAILY 05/10/15 [History] Gabapentin [Neurontin] 300 mg PO BID 05/10/15 [History] Isosorbide MONOnitrate (24 HR) [Imdur] 30 mg PO DAILY 05/10/15 [History] Levothyroxine Sodium [Synthroid] 200 mcg PO QAM 05/10/15 [History] Rosuvastatin [Crestor] 40 mg PO HS 05/10/15 [History] Nitroglycerin [Nitrostat] 0.4 mg SL AD PRN 07/15/15 [History] Furosemide [Lasix] 80 mg PO BID 30 Days 07/19/15 [Rx] Lisinopril [Zestril] 10 mg PO DAILY #30 tablet 08/08/15 [Rx] amLODIPine [Norvasc] 10 mg PO DAILY #60 tablet 08/08/15 [Rx] Omeprazole [PriLOSEC] 40 mg PO DAILY 01/10/16 [History] Warfarin [Coumadin] 10 mg PO QPM 01/10/16 [History] Calcitriol [Rocaltrol] 0.25 mcg PO DAILY 05/29/16 [History] Metoprolol Succinate 100 mg PO DAILY 05/29/16 [History] Insulin Glargine,Hum.rec.anlog [Basaglar Kwikpen U-100] 60 unit SQ BID #1 insuln.pen 05/31/16 [Rx] Insulin Human Regular [HumuLIN R] 6 - 18 unit SQ TIDWM 06/23/16 [History] Allergies Iodinated Contrast Media - Oral and Allergy (Verified 06/23/16 14:06) Swelling of Lip/Tongue/Throat Physical Exam - Constitutional Vitals: Pulse Resp BP 78 17 144/73 06/23/16 15:10 06/23/16 15:10 06/23/16 15:10 General appearance: cooperative, morbidly obese - Extremities Exam Extremities exam: Present: normal capillary refill, pedal edema - Expanded Lower Extremities Exam Foot/Toe exam: Present: amputation (Toe #2 left foot), deformity (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 We see 3 cm tunnel at the 6 o'clock position radiating proximally. There is seropurulent drainage. Macerated callus tissue surrounding the wound. Spreading cellulitis to the dorsal aspect of the sulcus and toe #2. - Vascular Capillary Refill: less than 3 seconds - Ankle & Foot Appearance ankle: swelling, erythema Results - Labs Result Diagrams: 06/23/16 16:06 06/23/16 16:06 Labs: Abnormal lab results WBC 12.9 K/mcL (4.3-11.1) H 06/23/16 16:06 RBC 3.99 M/mcL (4.19-5.50) L 06/23/16 16:06 Hgb 11.3 g/dL (12.9-16.9) L 06/23/16 16:06 Hct 34.5 % (37.5-50.1) L 06/23/16 16:06 Neutrophils # 9.6 K/mcL (1.6-8.9) H 06/23/16 16:06 ESR >= 130 mm/hr (0-10) H 06/23/16 16:13 PT 16.7 Seconds (9.4-12.1) H 06/23/16 16:13 Sodium 132 mEq/L (136-145) L 06/23/16 16:06 Chloride 97 mEq/L (98-109) L 06/23/16 16:06 BUN 47 mg/dL (8-26) H 06/23/16 16:06 Creatinine 2.90 mg/dL (0.72-1.25) H 06/23/16 16:06 Est GFR ( Amer) 27 (> 60) L 06/23/16 16:06 Est GFR (Non-Af Amer) 23 (> 60) L 06/23/16 16:06 Glucose 341 mg/dL (70-99) H 06/23/16 16:06 H & H 06/23/16 Range/Units 16:06 Hgb 11.3 L (12.9-16.9) g/dL Hct 34.5 L (37.5-50.1) % All other labs normal. 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 Qualifiers: Diabetic foot ulcer location: other Diabetes mellitus type: type 2 Non- pressure ulcer stage: with fat layer exposed Qualified Code(s): E11.621 - Type 2 diabetes mellitus with foot ulcer; L97.512 - Non-pressure chronic ulcer of other part of right foot with fat layer exposed
[2016-06-23] MEDS ORDERED: Vancomycin 2,000 MG in D5% in Water 250 ML IVPB SCH (18:00)
--- NOTE | 2016-06-23 18:06 | Internal Medicine Consult Note ---
Date of Encounter: 06/23/16 Time of Encounter: 17:40 - Assessment and Plan (1) Diabetic ulcer of right foot Current Visit: Yes Status: Acute Assessment and plan: Worsening diabetic foot ulcers the right foot with surrounding cellulitis. Management per podiatry. IV antibiotics. Infectious disease has been consulted. We will follow culture results. Podiatric plans for surgery on . Qualifiers: Diabetic foot ulcer location: other Diabetes mellitus type: type 2 Non- pressure ulcer stage: with fat layer exposed Qualified Code(s): E11.621 - Type 2 diabetes mellitus with foot ulcer; L97.512 - Non-pressure chronic ulcer of other part of right foot with fat layer exposed (2) Morbid obesity with BMI of 70 and over, adult Current Visit: Yes Status: Acute (3) CAD (coronary artery disease) Current Visit: Yes Status: Chronic Assessment and plan: Continue Aspirin, statin, beta sandra. Qualifiers: Coronary Disease-Associated Artery/Lesion type: [place] artery [place] vs. transplanted heart: [place] heart Associated angina: without angina Qualified Code(s): I25.10 - Atherosclerotic heart disease of [place] coronary artery without angina pectoris (4) Chronic kidney disease, stage IV (severe) Current Visit: Yes Status: Chronic Assessment and plan: Renal function is at baseline. Will adjust antibiotics to renal function (5) Hypertension Current Visit: Yes Status: Chronic Assessment and plan: Continue home medications. Monitor blood pressure closely. Qualifiers: Hypertension type: essential hypertension Qualified Code(s): I10 - Essential (primary) hypertension (6) PVD (peripheral vascular disease) Current Visit: Yes Status: Chronic Assessment and plan: Arterial Doppler has been ordered. We will follow results. (7) Atrial fibrillation Current Visit: Yes Status: Acute Assessment and plan: Patient has history of atrial fibrillation and is on Coumadin. We will check INR. Will get EKG. As patient is to undergo surgery, we will need to stop Coumadin and place him on heparin prior to surgery. Qualifiers: Atrial fibrillation type: unspecified Qualified Code(s): I48.91 - Unspecified atrial fibrillation Internal Medicine - CN: HPI - Data of Consult Patient: known to practice within the last 3 years Requesting Physician: Rafael Mc, - Consult Narrative Reason for consult: Diabetes management History of present illness: Mr. Oneal is a 56 year old male patient with history of type 2 diabetes mellitus, chronic kidney disease stage IV, hypertension, peripheral arterial disease, is currently admitted for failed outpatient management for right lower extremity diabetic foot ulcer and cellulitis. He underwent localized debridement of the wound at the wound clinic and then was admitted to the hospital for IV antibiotics. Patient has a chronic history of poorly controlled diabetes mellitus and takes Lantus and regular insulin at home. He is also in the process of getting set up with an insulin pump soon. He says his blood sugars are usually high at home. Denies any fevers chills or night sweats. Past Med Surg Social Fam HX - Past Medical History Attestation: Yes The following information was validated with the patient. Source: patient, old records reviewed Medical history: arthritis, atrial fibrillation, CHF, COPD, coronary artery disease, DVT, diabetes, GERD, hyperlipidemia, hypertension, kidney stones, myocardial infarction, osteoporosis, peripheral artery disease, renal disease, thyroid disease, venous stasis, other Psychiatric history: no psych history - Past Surgical History Surgical History: angioplasty/stent, LE vascular intervention, orthopedic, other , other - Social History Smoking Status: Former smoker Smokeless Tobacco Status: No Alcohol use: none Drug use: none - Family History Mother Living Status: Hx Family Cancer: Yes (Stomach Cancer) Hx Family Endocrine Disorder: Yes Father Family Member Ethnicity: Non- Living Status: Hx Family Cardiac Disorders: Yes ([place]) Hx Family Cancer: Yes Hx Family Endocrine Disorder: Yes All systems: reviewed and no additional remarkable complaints except as stated Review of systems: At 13 point review of systems was obtained and was negative except as above Internal Medicine - CN: Meds Allopurinol [Zyloprim 100 MG] 100 mg PO DAILY 05/10/15 [History] Aspirin [Adult Low Dose Aspirin EC] 81 mg PO DAILY 05/10/15 [History] Cholecalciferol (Vitamin D3) [Vitamin D3] 5,000 unit PO DAILY 05/10/15 [History] Gabapentin [Neurontin] 300 mg PO BID 05/10/15 [History] Isosorbide MONOnitrate (24 HR) [Imdur] 30 mg PO DAILY 05/10/15 [History] Levothyroxine Sodium [Synthroid] 200 mcg PO QAM 05/10/15 [History] Rosuvastatin [Crestor] 40 mg PO HS 05/10/15 [History] Nitroglycerin [Nitrostat] 0.4 mg SL AD PRN 07/15/15 [History] Furosemide [Lasix] 80 mg PO BID 30 Days 07/19/15 [Rx] Lisinopril [Zestril] 10 mg PO DAILY #30 tablet 08/08/15 [Rx] amLODIPine [Norvasc] 10 mg PO DAILY #60 tablet 08/08/15 [Rx] Omeprazole [PriLOSEC] 40 mg PO DAILY 01/10/16 [History] Warfarin [Coumadin] 10 mg PO QPM 01/10/16 [History] Calcitriol [Rocaltrol] 0.25 mcg PO DAILY 05/29/16 [History] Metoprolol Succinate 100 mg PO DAILY 05/29/16 [History] Insulin Glargine,Hum.rec.anlog [Basaglar Kwikpen U-100] 60 unit SQ BID #1 insuln.pen 05/31/16 [Rx] Insulin Human Regular [HumuLIN R] 6 - 18 unit SQ TIDWM 06/23/16 [History] Allergies Iodinated Contrast Media - Oral and Allergy (Verified 06/23/16 14:06) Swelling of Lip/Tongue/Throat Internal Medicine - CN: Exam - Constitutional Vitals: Pulse Resp BP 78 17 144/73 06/23/16 15:10 06/23/16 15:10 06/23/16 15:10 General appearance IM: Present: cooperative, A&O X 3, morbidly obese, no acute distress - Eye Eye exam: Present: EOMI - ENT ENT exam: Present: mucous membranes moist, normal exam - Respiratory Respiratory exam: Present: CTAB. Absent: accessory muscle use, chest wall tenderness, wheezes - Cardiovascular Cardiovascular exam IM: Present: RRR, +S1, +S2. Absent: tachycardia - GI/Abdominal GI/Abdominal exam IM: Present: soft, no peritoneal signs. Absent: tenderness - Extremities Exam Additional comments: Right foot is currently bandaged. Bilateral pedal edema that is nonpitting present - Neurological Exam Neurological exam: Present: alert, oriented X3, no focal deficits - Skin Skin exam IM: Present: erythema (Right lower leg), warm (Lower leg on the right side) Internal Medicine - CN: Reslt - Labs CBC & Chem 7: 06/23/16 16:06 06/23/16 16:06 Labs: Short CBC 06/23/16 Range/Units 16:06 WBC 12.9 H (4.3-11.1) K/mcL Hgb 11.3 L (12.9-16.9) g/dL Hct 34.5 L (37.5-50.1) % Plt Count 220 (140-400) K/mcL Neutrophils # 9.6 H (1.6-8.9) K/mcL BMP 06/23/16 16:06 Sodium 132 L Potassium 4.2 Chloride 97 L Carbon Dioxide 23 BUN 47 H Creatinine 2.90 H Glucose 341 H Calcium 9.1 - ABG Interpretation ABG results: PT/INR, D-dimer PT 16.7 Seconds (9.4-12.1) H 06/23/16 16:13 Consult Discharge Plan - Plan Referrals: Joan Lockhart [Primary Care Provider] - - Attending Attestation This document has been at least partially created by [employer] recognition technology by Dr. Mitchell. Errors in grammar, wording or other phrases may exist. If errors are found after the documentation is signed, they will be addressed individually in the addendum section of this document when appropriate.
[2016-06-23] MEDS ORDERED: *HR* Heparin 5,000 UNIT/ML VIAL IVP PRN ×2 (18:13)
[2016-06-23] MEDS ORDERED: *HR* Heparin 5,000 UNIT/ML VIAL IVP ONE (18:13)
[2016-06-23] MEDS ORDERED: Nitroglycerin 0.4 MG TAB.SUBL SL PRN (18:13)
[2016-06-23] MEDS: Heparin 25,000 UNIT/500 ML D5W 25,000 UNIT/500 ML MLS IVC SCH (22:26)
[2016-06-23] MEDS: Vancomycin 2,000 MG in D5% in Water 500 ML IVPB SCH (22:27)
[2016-06-23] MEDS: Insulin DETEMIR 100 UNIT/ML X5UNITS SQ SCH (22:28)
[2016-06-23] MEDS: Gabapentin 300 MG CAPSULE PO SCH (22:29)
[2016-06-23] MEDS: Furosemide 40 MG TABLET PO SCH (22:29)
[2016-06-23] MEDS: Insulin LISPRO 300 UNITS/3 ML VIAL SQ SCH (22:30)
[2016-06-24] MEDS: *HR* OxyCODONE/APAP 5/325 TABLET PO PRN ×3 (01:06→21:40)
[2016-06-24] MEDS: Piperacillin/Tazobactam 3.375 GM in D5% in Water (Mini-Bag+) 100 ML IVPB SCH ×4 (01:06→23:44)
[2016-06-24 06:05] LABS: Basophils % 0.4 %; Eosinophils # 0.5 K/mcL (0.0-0.6); Eosinophils % 4.8 %; Hematocrit 34.7 % (37.5-50.1); Hemoglobin 11.5 g/dL (12.9-16.9); Immature Granulocytes % 0.4 % (0-4); Lymphocytes # 1.5 K/mcL (0.6-4.6); Lymphocytes % 14.6 %; Mean Corpuscular HGB Conc 33.1 g/dL (31.6-35.5); Mean Corpuscular Hemoglobin 28.4 pg (28.0-33.3); Mean Corpuscular Volume 85.7 fL (83.0-100.0); Mean Platelet Volume 10.7 fL (9.4-12.4); Monocytes # 1.1 K/mcL (0.0-1.3); Monocytes % 10.4 %; Neutrophils # 7.3 K/mcL (1.6-8.9); Platelet Count 202 K/mcL (140-400); Red Blood Count 4.05 M/mcL (4.19-5.50); Red Cell Distribution Width 13.8 % (11.5-14.5); Segmented Neutrophils % 69.4 %
[2016-06-24 06:24] LABS: Calcium 8.9 mg/dL (8.6-10.8); Potassium 3.4 mEq/L (3.5-4.5)
[2016-06-24 06:31] LABS: Hemoglobin A1C 13.1 %
[2016-06-24] MEDS: Vancomycin 2,000 MG in D5% in Water 500 ML IVPB SCH (06:51)
[2016-06-24] MEDS: Insulin LISPRO 300 UNITS/3 ML VIAL SQ SCH ×6 (09:42→21:31)
[2016-06-24] MEDS: Furosemide 40 MG TABLET PO SCH ×2 (09:44→17:18)
[2016-06-24] MEDS: Insulin DETEMIR 100 UNIT/ML X5UNITS SQ SCH ×2 (09:47→21:31)
[2016-06-24] MEDS: Gabapentin 300 MG CAPSULE PO SCH ×2 (09:47→21:30)
[2016-06-24] MEDS: Isosorbide MONOnitrate (24 HR) 30 MG TAB.ER.24H PO SCH (09:47)
[2016-06-24] MEDS: Aspirin Enteric Coated 81 MG Tablet PO SCH (09:47)
[2016-06-24] MEDS: Metoprolol 100 MG TABLET PO SCH (09:47)
[2016-06-24] MEDS: amLODIPine 5 MG TABLET PO SCH (09:49)
[2016-06-24] MEDS: Cholecalciferol (D-3) 1,000 UNIT TABLET PO SCH (09:50)
[2016-06-24] MEDS: Heparin 25,000 UNIT/500 ML D5W 25,000 UNIT/500 ML MLS IVC SCH ×2 (11:01→23:45)
--- NOTE | 2016-06-24 12:07 | Infectious Disease Consult ---
Date of Encounter: 06/24/16 Time of Encounter: 12:02 Assessment and Plan (1) Leukocytosis Status: Acute Assessment and plan: WBC 12.9 on admission--> Resolved this morning. Likely secondary to right foot DFU infection. No fevers documented, but the patient reported subjective fevers and chills. Get blood cultures x 2 sets now. Qualifiers: Leukocytosis type: unspecified Qualified Code(s): D72.829 - Elevated white blood cell count, unspecified (2) Right foot infection Status: Acute Assessment and plan: Location: Plantar aspect of the right foot. Causative organism unclear. Previous wound culture from May 2016 grew out MSSA. Secondary to poor-fitting shoes. X-ray of the right foot showed no evidence of OM or gas. ESR >130, CRP 181. Wound cultures obtained in the Podiatry office are pending. Blood cultures x 2 sets ordered. Podiatry plans to take the patient to the OR on for formal I & D. Await intra-operative findings. Continue Vancomycin IV. Pharmacy to dose. Goal trough approximately 15. Continue Zosyn 3.375 grams IV Q8H. Duration of treatment depends on the clinical picture. Await wound culture and intra-operative findings before we decide on the long-term plan of care. Monitor renal function and for drug toxicity and dose-adjust antibiotics. (3) Diabetic ulcer of right foot Status: Acute Assessment and plan: Location: Plantar aspect of the right foot. Follows with Dr. Mc in the Podiatry clinic. Continue wound care per Dr. Mc's recommendations. Qualifiers: Diabetic foot ulcer location: other Diabetes mellitus type: type 2 Non- pressure ulcer stage: with fat layer exposed Qualified Code(s): E11.621 - Type 2 diabetes mellitus with foot ulcer; L97.512 - Non-pressure chronic ulcer of other part of right foot with fat layer exposed (4) Chronic kidney disease, stage IV (severe) Status: Chronic Assessment and plan: Serum creatinine elevated, but at baseline for the patient. Closely monitor drug levels and dose-adjust antibiotics based on creatinine clearance. (5) Diabetes mellitus Status: Chronic Assessment and plan: Uncontrolled. HgbA1C 13.1 --> non-compliance vs. ineffective treatment regimen. Recommend aggressive glucose monitoring and control to promote wound healing and prevent re-infection. 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 transplanted heart: [place] heart Associated angina: without angina Qualified Code(s): I25.10 - Atherosclerotic heart disease of [place] coronary artery without angina pectoris (7) COPD (chronic obstructive pulmonary disease) Status: Chronic Qualifiers: COPD type: unspecified COPD Qualified Code(s): J44.9 - Chronic obstructive pulmonary disease, unspecified (8) Morbid obesity with BMI of 40.0-44.9, adult Status: Chronic (9) PVD (peripheral vascular disease) Status: Chronic Assessment and plan: Consider assessing for arterial ischemia with ABIs. (10) Venous stasis dermatitis of both lower extremities Status: Chronic (11) Atrial fibrillation Status: Chronic Qualifiers: Atrial fibrillation type: unspecified Qualified Code(s): I48.91 - Unspecified atrial fibrillation Infectious Disease HPI - Data of Consult Patient: new to practice Consult date: 06/24/16 Requesting Physician: Rafael Mc, Primary Care Provider: Joan Lockhart - Consult Narrative Reason for consult: Right foot infection History of present illness: Mr. Oneal is a 56 year old male with a past medical history of uncontrolled diabetes, A. fib, CHF, COPD, CAD, DVT, hypertension, PAD, and CKD. The patient was admitted to the hospital June 23 for right foot diabetic foot ulcer infection. We are consulted June 24 for antibiotic recommendations for right foot infection. The patient's a 56-year-old male with past medical history as stated above. The patient states that a couple of months ago he sustained an ulcer to the plantar aspect of the right foot secondary to poor fitting orthotic shoes. The patient states he's been seen by Dr. Mc in the past. Review of medical record reveals that he was recently admitted to the hospital back in May for cellulitis and was discharged home on an oral course of clindamycin, which she completed. At that time, wound cultures grew out MSSA. He states that 2 days ago he began to experience severe pain in the right foot. He saw Dr. Mc in the office who instructed him to come to the hospital for direct admission due to infection and wound regression. Upon arrival, the patient was afebrile and hemodynamically stable. Laboratory studies revealed a white blood cell count 12.9 thousand. Basic metabolic panel was significant for serum creatinine of 2.9 , which is chronic for this patient. ESR and CRP were markedly elevated at greater than 130 and 181, respectively. Wound cultures were obtained in the podiatry office and are currently pending. Gram stain shows many gram-positive cocci and few gram-negative rods. A foot x-ray was completed that was negative for osteomyelitis. The patient was started on empiric IV vancomycin and IV Zosyn per the hospitalist team. We've been asked to evaluate and make further recommendations. During my exam today, the patient endorsed a history as stated above. He reports fevers and chills and rigors that started over the weekend. He denies any chest pain or shortness of breath or cough. He denies any headache or neck pain. He denies any congestion, earache, or sore throat. He does report some intermittent nausea and decreased appetite, but he denies any abdominal pain or vomiting. He reports some constipation, but denies diarrhea. He denies any urinary complaints. He denies pain elsewhere except for the right foot and right calf. He denies the oral thrush or new skin lesions. The patient lives at home with family and 2 dogs and a bird. He is currently disabled and unemployed. He denies any recent travel. He denies any alcohol, drug, or illicit drug use. CC: Rafael Mc, Past Med Surg Social Fam HX - Past Medical History Attestation: Yes The following information was validated with the patient. Source: patient, old records reviewed, nursing notes reviewed Medical history: arthritis, atrial fibrillation, CHF, COPD, coronary artery disease, DVT, diabetes, GERD, hyperlipidemia, hypertension, kidney stones, myocardial infarction, osteoporosis, peripheral artery disease, renal disease, thyroid disease, venous stasis, other Psychiatric history: no psych history - Past Surgical History Surgical History: angioplasty/stent, LE vascular intervention, orthopedic, other , other - Social History Smoking Status: Former smoker Smokeless Tobacco Status: No Alcohol use: none Drug use: none Occupational status: disabled Current living situation: Home, With Family Activity Level: Independent ambulation Recent Out of Country Travel Within the Last 8 Weeks: No Exposure or Possible Exposure to Illness During Travel: No - Family History Mother Living Status: Hx Family Cancer: Yes (Stomach Cancer) Hx Family Endocrine Disorder: Yes Father Family Member Ethnicity: Non- Living Status: Hx Family Cardiac Disorders: Yes ([place]) Hx Family Cancer: Yes Hx Family Endocrine Disorder: Yes Infectious Disease-CN:Meds Allopurinol [Zyloprim 100 MG] 100 mg PO DAILY 05/10/15 [History] Aspirin [Adult Low Dose Aspirin EC] 81 mg PO DAILY 05/10/15 [History] Cholecalciferol (Vitamin D3) [Vitamin D3] 5,000 unit PO DAILY 05/10/15 [History] Gabapentin [Neurontin] 300 mg PO BID 05/10/15 [History] Isosorbide MONOnitrate (24 HR) [Imdur] 30 mg PO DAILY 05/10/15 [History] Levothyroxine Sodium [Synthroid] 200 mcg PO QAM 05/10/15 [History] Rosuvastatin [Crestor] 40 mg PO HS 05/10/15 [History] Nitroglycerin [Nitrostat] 0.4 mg SL AD PRN 07/15/15 [History] Furosemide [Lasix] 80 mg PO BID 30 Days 07/19/15 [Rx] Lisinopril [Zestril] 10 mg PO DAILY #30 tablet 08/08/15 [Rx] amLODIPine [Norvasc] 10 mg PO DAILY #60 tablet 08/08/15 [Rx] Omeprazole [PriLOSEC] 40 mg PO DAILY 01/10/16 [History] Warfarin [Coumadin] 10 mg PO QPM 01/10/16 [History] Calcitriol [Rocaltrol] 0.25 mcg PO DAILY 05/29/16 [History] Metoprolol Succinate 100 mg PO DAILY 05/29/16 [History] Insulin Glargine,Hum.rec.anlog [Basaglar Kwikpen U-100] 60 unit SQ BID #1 insuln.pen 05/31/16 [Rx] Insulin Human Regular [HumuLIN R] 6 - 18 unit SQ TIDWM 06/23/16 [History] Allergies Iodinated Contrast Media - Oral and Allergy (Verified 06/23/16 14:06) Swelling of Lip/Tongue/Throat All systems: reviewed and no additional remarkable complaints except as stated Exam - Constitutional Vitals: Temp Pulse Resp BP Pulse Ox 98.2 F 47 20 173/103 96 06/24/16 10:37 06/24/16 10:37 06/24/16 10:37 06/24/16 10:37 06/24/16 10:37 General appearance: cooperative, no acute distress, obese - Head Head exam: Present: atraumatic, normal inspection, normocephalic - Eye Eye exam: Present: EOMI, normal appearance, PERRL Pupils: Present: normal accommodation - ENT ENT exam: Present: mucous membranes moist - Neck Neck exam: Present: normal inspection - Respiratory Respiratory exam: Present: CTAB. Absent: rales, respiratory distress, rhonchi, wheezes - Cardiovascular Cardiovascular exam: Present: RRR, +S1, +S2 - GI/Abdominal GI/Abdominal exam: Present: distended (obese), normal bowel sounds, soft. Absent: tenderness - Extremities Exam Extremities exam: Present: pedal edema (1+ bilaterally), tenderness (Right posterior calf) Additional comments: Venous stasis dermatitis noted to the bilateral lower extremities. Right foot dressing is clean, dry, and intact. Ulcer noted to the plantar aspect of the right foot approximately 2.5 cm x 1.5 cm. Purulent drainage noted. A-V shunt noted to the left upper extremity that is positive/positive. - Neurological Exam Neurological exam: Present: alert, oriented X3, no focal deficits - Psychiatric Psychiatric exam: Present: normal affect, normal mood - Skin Skin exam: Present: dry, intact, normal color, warm Infectious Disease CN: Results - Labs CBC & Chem 7: 06/24/16 05:41 06/24/16 05:41 Consult Discharge Plan - Plan Referrals: Joan Lockhart [Primary Care Provider] - - Attending Attestation I examined this patient and my medical decision-making was reviewed with the ACADEMY EDUCATION DIRECTOR/PA/Advanced Practice Nurse/Resident Physician. I agree with the documented findings, disposition and treatment plan as described except to the extent set forth below. This is an addendum to original report dictated by Daxa Burdick CNP. Please refer to Jessicas note for full detail. Patient is a 56-year-old gentleman with diabetes mellitus type 2 complicated and not controlled with the last hemoglobin A1c 13. Patient apparently had diabetic wound infection previously MSSA. Patient was treated with clindamycin orally and discharged home. Patient came back with worsening wound. Labs reveal ESR over 1:30. Patient had sepsis criteria on admission. Patient had the fevers at home and leukocytosis on admission. Patient had an x-ray which was nonrevealing for osteomyelitis by x-ray sent to be not very sensitive for osteomyelitis especially in early phases. Patient was started on broad-spectrum antibiotics including vancomycin and Zosyn and is being taken to surgery by Dr. Mc for I&D. Wound cultures were obtained and blood cultures were ordered by us. At this point will wait for Intra-Op cultures and high concern for osteomyelitis. Patient likely will need a PICC line and IV antibiotics at home if osteomyelitis is present and no aggressive amputation is done. Ask for vascular studies we will defer that to Dr. Mc and the vascular team.
--- NOTE | 2016-06-24 15:19 | Internal Med Progress Note ---
Date of Encounter: 06/24/16 Time of Encounter: 08:00 - Assessment and plan (1) Diabetic ulcer of right foot Current Visit: Yes Status: Acute Assessment and plan: Infectious disease consult appreciated. Continue IV antibiotics. Follow culture results. Podiatry managing Qualifiers: Diabetic foot ulcer location: other Diabetes mellitus type: type 2 Non- pressure ulcer stage: with fat layer exposed Qualified Code(s): E11.621 - Type 2 diabetes mellitus with foot ulcer; L97.512 - Non-pressure chronic ulcer of other part of right foot with fat layer exposed (2) Morbid obesity with BMI of 70 and over, adult Current Visit: Yes Status: Chronic (3) CAD (coronary artery disease) Current Visit: Yes Status: Chronic Assessment and plan: Continue current management. No chest pain. Qualifiers: Coronary Disease-Associated Artery/Lesion type: [place] artery [place] vs. transplanted heart: [place] heart Associated angina: without angina Qualified Code(s): I25.10 - Atherosclerotic heart disease of [place] coronary artery without angina pectoris (4) Chronic kidney disease, stage IV (severe) Current Visit: Yes Status: Chronic Assessment and plan: Renal function remains stable. On IV antibiotics adjusted to renal function (5) Hypertension Current Visit: Yes Status: Chronic Assessment and plan: Elevated this morning. We will reassess after patient receives his usual medications. And adjust antihypertensive medications accordingly. Qualifiers: Hypertension type: essential hypertension Qualified Code(s): I10 - Essential (primary) hypertension (6) PVD (peripheral vascular disease) Current Visit: Yes Status: Chronic Assessment and plan: Arterial Doppler ordered. Will await results (7) Atrial fibrillation Current Visit: Yes Status: Chronic Assessment and plan: Rate controlled. On anticoagulation with heparin in anticipation for surgery. Qualifiers: Atrial fibrillation type: unspecified Qualified Code(s): I48.91 - Unspecified atrial fibrillation - Subjective Interval history: Patient is feeling much better today. No fever chills or night sweats reported overnight. Tolerating diet well. No pain reported. - Constitutional Vitals: Temp Pulse Resp BP Pulse Ox 98.8 F 47 20 104/58 93 06/24/16 14:47 06/24/16 14:47 06/24/16 14:47 06/24/16 14:47 06/24/16 14:47 General appearance: Present: cooperative, A&O X 3, morbidly obese, no acute distress - Respiratory Respiratory exam: Present: CTAB. Absent: accessory muscle use, rales, rhonchi, wheezes - Cardiovascular Cardiovascular exam: Present: RRR, +S1, +S2. Absent: diastolic murmur, gallop, rubs, systolic murmur - GI/Abdominal GI/Abdominal exam: Present: normal bowel sounds, soft, no peritoneal signs. Absent: distended, tenderness - Extremities Exam Extremities exam: Present: warm, radial pulses palpable and symetrical. Absent : calf tenderness, cyanotic, pedal edema Additional comments: Stasis dermatitis present bilaterally. - Neurological Exam Neurological exam: Present: oriented X3, no focal deficits. Absent: facial droop, speech deficit - Skin Skin exam: Present: dry, intact Internal Medicine: Result - Labs CBC & Chem 7: 06/24/16 05:41 06/24/16 05:41 Labs: Short CBC 06/23/16 06/24/16 Range/Units 16:06 05:41 WBC 12.9 H 10.5 (4.3-11.1) K/mcL Hgb 11.3 L 11.5 L (12.9-16.9) g/dL Hct 34.5 L 34.7 L (37.5-50.1) % Plt Count 220 202 (140-400) K/mcL Neutrophils # 9.6 H 7.3 (1.6-8.9) K/mcL BMP 06/23/16 06/24/16 16:06 05:41 Sodium 132 L 131 L Potassium 4.2 3.4 L Chloride 97 L 95 L Carbon Dioxide 23 19 BUN 47 H 45 H Creatinine 2.90 H 2.94 H Glucose 341 H 301 H Calcium 9.1 8.9 - ABG Interpretation ABG results: PT/INR, D-dimer PT 16.7 Seconds (9.4-12.1) H 06/23/16 16:13 - Impressions Impressions Foot X-Ray 06/23/16 15:58 IMPRESSION: Dislocation of the 2nd MTP joint and subluxation of the 3rd and 4th MTP joints. Hallux valgus. D/ / Luis Manuel Payton MD / Luis Manuel Payton MD Interpreting Provider: Luis Manuel Payton MD Consult Discharge Plan - Plan Referrals: Joan Lockhart [Primary Care Provider] - - Attending Attestation This document has been at least partially created by [employer] recognition technology by Dr. Mitchell. Errors in grammar, wording or other phrases may exist. If errors are found after the documentation is signed, they will be addressed individually in the addendum section of this document when appropriate.
--- NOTE | 2016-06-24 20:25 | Arterial Study Report ---
LE Arterial Physiologic Study Patient Name:Silviano Oneal Order Number:[id number] Procedure Date:06/24/2016 Date:1960Age:56 yrs Gender:Male Rt.BP:117 / mmHgHeart Rate: Location:[facility] Room #: [id number] Glass Mold Repairer:Patti Carrion Referring MD:Rafael Mc DPM cyber instructor:Joan Lockhart MD Reading MD:Omid Youngblood MD Primary Indications:Diabetic foot ulcer with infection Impressions: The right IDALIA and waveforms are consistent with mild disease. Right IDALIA 0.92. The left IDALIA and waveforms are normal. Left IDALIA: 1.21. Recommendations: Risk factor reduction. Follow-up exam in 1 year. After imaging the patient returned to their room. Findings LE Arterial Physiologic Exam: Segmental Pressures: Right: The right high thigh pressure is 125 mmHg with an index of 1.07. The right above knee pressure is 117 mmHg with an index of 1. The right below knee pressure is 110 mmHg with an index of 0.94. The right posterior tibial pressure is 108 mmHg with an index of 0.92. The right dorsalis pedis pressure is 102 mmHg with an index of 0.87. Left: The left high thigh pressure is 146 mmHg with an index of 1.25. The left above knee pressure is 138 mmHg with an index of 1.18. The left below knee pressure is 145 mmHg with an index of 1.24. The left posterior tibial pressure is 135 mmHg with an index of 1.15. The left dorsalis pedis pressure is 142 mmHg with an index of 1.21. PVR: Right: The PVR waveforms are normal in the right high thigh, right lower thigh and right calf and mildly diminished in the right ankle. Left: The PVR waveforms are normal in the left high thigh, left lower thigh, left calf and left ankle. Prior Study: No prior study available for comparison. Segmental Pressures Side Location Pressure Index Result Right High Thigh 125 1.07 Right Above Knee 117 1.00 Right Below Knee 110 0.94 Right Posterior Tibial 108 0.92 Right Dorsalis Pedis 102 0.87 Left High Thigh 146 1.25 Left Above Knee 138 1.18 Left Below Knee 145 1.24 Left Posterior Tibial 135 1.15 Left Dorsalis Pedis 142 1.21 Ankle Brachial Index Right Systolic Diastolic IDALIA Brachial 117 0.92 Dorsalis Pedis 102 0.87 Posterior Tibial 108 0.92 Left Systolic Diastolic IDALIA Brachial 1.21 Dorsalis Pedis 142 1.21 Posterior Tibial 135 1.15 Updated by Omid Youngblood MD on 06/24/2016 8:14:52 PM with Status of Final electronically signed on 06/24/2016 8:19:33 PM with status of Final
[2016-06-25] MEDS ORDERED: Vancomycin 2,000 MG in D5% in Water 500 ML IVPB SCH (07:00)
[2016-06-25] MEDS ORDERED: Piperacillin/Tazobactam 3.375 GM VIAL IVPB ONE (07:39)
[2016-06-25] MEDS: Insulin LISPRO 300 UNITS/3 ML VIAL SQ SCH ×7 (07:43→22:00)
[2016-06-25] MEDS: *HR* OxyCODONE/APAP 5/325 TABLET PO PRN (07:43)
[2016-06-25] MEDS: Metoprolol 100 MG TABLET PO SCH (07:44)
[2016-06-25] MEDS: Gabapentin 300 MG CAPSULE PO SCH ×2 (07:44→22:00)
[2016-06-25] MEDS: Furosemide 40 MG TABLET PO SCH (07:44)
[2016-06-25] MEDS: Cholecalciferol (D-3) 1,000 UNIT TABLET PO SCH (07:44)
[2016-06-25] MEDS: Aspirin Enteric Coated 81 MG Tablet PO SCH (07:44)
[2016-06-25] MEDS: Isosorbide MONOnitrate (24 HR) 30 MG TAB.ER.24H PO SCH (07:45)
[2016-06-25] MEDS: amLODIPine 5 MG TABLET PO SCH (07:45)
[2016-06-25] MEDS: Piperacillin/Tazobactam 3.375 GM in D5% in Water (Mini-Bag+) 100 ML IVPB SCH ×2 (07:45→21:57)
--- NOTE | 2016-06-25 08:22 | Podiatry History & Physical ---
History of Present Illness HPI: Mr. Oneal is a 56 year old male All Systems Reviewed: A 10-system review of systems was performed and is negative for pertinent findings except as documented above in the HPI. Past Med Surg Social Fam HX - Past Medical History Medical history: arthritis, atrial fibrillation, CHF, COPD, coronary artery disease, DVT, diabetes, GERD, hyperlipidemia, hypertension, kidney stones, myocardial infarction, osteoporosis, peripheral artery disease, renal disease, thyroid disease, venous stasis, other Psychiatric history: no psych history - Past Surgical History Surgical History: angioplasty/stent, LE vascular intervention, orthopedic, other , other - Social History Smoking Status: Former smoker Smokeless Tobacco Status: No Alcohol use: none Drug use: none - Family History Mother Living Status: Hx Family Cancer: Yes (Stomach Cancer) Hx Family Endocrine Disorder: Yes Father Family Member Ethnicity: Non- Living Status: Hx Family Cardiac Disorders: Yes ([place]) Hx Family Cancer: Yes Hx Family Endocrine Disorder: Yes Medications and Allergies Allopurinol [Zyloprim 100 MG] 100 mg PO DAILY 05/10/15 [History] Aspirin [Adult Low Dose Aspirin EC] 81 mg PO DAILY 05/10/15 [History] Cholecalciferol (Vitamin D3) [Vitamin D3] 5,000 unit PO DAILY 05/10/15 [History] Gabapentin [Neurontin] 300 mg PO BID 05/10/15 [History] Isosorbide MONOnitrate (24 HR) [Imdur] 30 mg PO DAILY 05/10/15 [History] Levothyroxine Sodium [Synthroid] 200 mcg PO QAM 05/10/15 [History] Rosuvastatin [Crestor] 40 mg PO HS 05/10/15 [History] Nitroglycerin [Nitrostat] 0.4 mg SL AD PRN 07/15/15 [History] Furosemide [Lasix] 80 mg PO BID 30 Days 07/19/15 [Rx] Lisinopril [Zestril] 10 mg PO DAILY #30 tablet 08/08/15 [Rx] amLODIPine [Norvasc] 10 mg PO DAILY #60 tablet 08/08/15 [Rx] Omeprazole [PriLOSEC] 40 mg PO DAILY 01/10/16 [History] Warfarin [Coumadin] 10 mg PO QPM 01/10/16 [History] Calcitriol [Rocaltrol] 0.25 mcg PO DAILY 05/29/16 [History] Metoprolol Succinate 100 mg PO DAILY 05/29/16 [History] Insulin Glargine,Hum.rec.anlog [Basaglar Kwikpen U-100] 60 unit SQ BID #1 insuln.pen 05/31/16 [Rx] Insulin Human Regular [HumuLIN R] 6 - 18 unit SQ TIDWM 06/23/16 [History] Allergies Iodinated Contrast Media - Oral and Allergy (Verified 06/23/16 14:06) Swelling of Lip/Tongue/Throat Physical Exam - Constitutional Vitals: Temp Pulse Resp BP Pulse Ox 98.2 F 75 18 112/67 94 06/25/16 06:26 06/25/16 06:26 06/25/16 06:26 06/25/16 06:26 06/25/16 06:26 General appearance: cooperative, no acute distress, obese Results - Labs Result Diagrams: 06/24/16 05:41 06/24/16 05:41 Labs: Abnormal lab results RBC 4.05 M/mcL (4.19-5.50) L 06/24/16 05:41 Hgb 11.5 g/dL (12.9-16.9) L 06/24/16 05:41 Hct 34.7 % (37.5-50.1) L 06/24/16 05:41 ESR >= 130 mm/hr (0-10) H 06/23/16 16:13 PT 16.7 Seconds (9.4-12.1) H 06/23/16 16:13 APTT 93.0 Seconds (26.0-36.0) H D 06/25/16 04:00 Sodium 131 mEq/L (136-145) L 06/24/16 05:41 Potassium 3.4 mEq/L (3.5-4.5) L 06/24/16 05:41 Chloride 95 mEq/L (98-109) L 06/24/16 05:41 BUN 45 mg/dL (8-26) H 06/24/16 05:41 Creatinine 2.94 mg/dL (0.72-1.25) H 06/24/16 05:41 Est GFR ( Amer) 27 (> 60) L 06/24/16 05:41 Est GFR (Non-Af Amer) 22 (> 60) L 06/24/16 05:41 Glucose 301 mg/dL (70-99) H 06/24/16 05:41 Hemoglobin A1c 13.1 % (-5.6) H 06/24/16 05:41 C-Reactive Protein 181 mg/L (Less than 5) H 06/23/16 16:13 All other labs normal. Assessment and Plan (1) Diabetic ulcer of right foot Current visit: Yes Status: Acute Qualifiers: Diabetic foot ulcer location: other Diabetes mellitus type: type 2 Non- pressure ulcer stage: with fat layer exposed Qualified Code(s): E11.621 - Type 2 diabetes mellitus with foot ulcer; L97.512 - Non-pressure chronic ulcer of other part of right foot with fat layer exposed
[2016-06-25] MEDS: Insulin DETEMIR 100 UNIT/ML X5UNITS SQ SCH ×2 (09:34→21:58)
[2016-06-25 10:37] LABS: Activated Partial Thrombo Time 118.5 Seconds (26.0-36.0)
[2016-06-25 11:14] LABS: Heparin anti-factor XA UFH 0.78 IU/mL (0.30-0.70)
[2016-06-25 13:13] LABS: Calcium 8.4 mg/dL (8.6-10.8)
[2016-06-25 13:25] LABS: Basophils # 0.1 K/mcL (0.0-0.2); Basophils % 0.6 %; Eosinophils # 0.8 K/mcL (0.0-0.6); Eosinophils % 6.3 %; Hematocrit 31.9 % (37.5-50.1); Hemoglobin 10.5 g/dL (12.9-16.9); Immature Granulocytes % 0.4 % (0-4); Lymphocytes # 1.8 K/mcL (0.6-4.6); Lymphocytes % 14.8 %; Mean Corpuscular HGB Conc 32.9 g/dL (31.6-35.5); Mean Corpuscular Hemoglobin 28.5 pg (28.0-33.3); Mean Corpuscular Volume 86.7 fL (83.0-100.0); Monocytes # 1.1 K/mcL (0.0-1.3); Monocytes % 9.4 %; Neutrophils # 8.1 K/mcL (1.6-8.9); Platelet Count 256 K/mcL (140-400); Red Blood Count 3.68 M/mcL (4.19-5.50); Red Cell Distribution Width 14.2 % (11.5-14.5); Segmented Neutrophils % 68.5 %
--- NOTE | 2016-06-25 13:33 | Infectious Disease Progress No ---
Date of Encounter: 06/25/16 Time of Encounter: 13:31 - Assessment and Plan (1) Leukocytosis Current Visit: Yes Status: Acute WBC 12.9 on admission. Normal yesterday. Back up to 11.9 this morning. Likely secondary to right foot DFU infection. No fevers documented, but the patient reports subjective fevers and chills. Blood cultures drawn 06/24/16 are pending x 2 sets. Qualifiers: Leukocytosis type: unspecified Qualified Code(s): D72.829 - Elevated white blood cell count, unspecified (2) Right foot infection Current Visit: Yes Status: Acute Location: Plantar aspect of the right foot. Causative organism unclear. Previous wound culture from May 2016 grew out MSSA. Secondary to poor-fitting shoes. X-ray of the right foot showed no evidence of OM or gas. ESR >130, CRP 181. Wound cultures obtained in the Podiatry office are positive for GPC, likely Staph species, and GBS. Blood cultures x 2 sets are pending. Podiatry plans to take the patient to the OR on for formal I & D. Await intra-operative findings. Discontinue Vancomycin. Continue Zosyn 3.375 grams IV Q8H. May need to dose-adjust based on the patients sudden rise in creatinine overnight. Duration of treatment depends on the clinical picture. Await wound culture and intra-operative findings before we decide on the long-term plan of care. Monitor renal function and for drug toxicity and dose-adjust antibiotics. (3) Diabetic ulcer of right foot Current Visit: Yes Status: Acute Location: Plantar aspect of the right foot. Follows with Dr. Mc in the Podiatry clinic. Continue wound care per Dr. Mc's recommendations. Qualifiers: Diabetic foot ulcer location: other Diabetes mellitus type: type 2 Non- pressure ulcer stage: with fat layer exposed Qualified Code(s): E11.621 - Type 2 diabetes mellitus with foot ulcer; L97.512 - Non-pressure chronic ulcer of other part of right foot with fat layer exposed (4) Chronic kidney disease, stage IV (severe) Current Visit: Yes Status: Chronic Serum creatinine up to 5 overnight. Consider nephrology consult. Discontinue Vancomycin in order to minimize nephrotoxins. Dose-adjust antibiotics based on creatinine clearance. (5) Diabetes mellitus Current Visit: No Status: Chronic Uncontrolled. HgbA1C 13.1 --> non-compliance vs. ineffective treatment regimen. Recommend aggressive glucose monitoring and control to promote wound healing and prevent re-infection. 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 transplanted heart: [place] heart Associated angina: without angina Qualified Code(s): I25.10 - Atherosclerotic heart disease of [place] coronary artery without angina pectoris (7) COPD (chronic obstructive pulmonary disease) Current Visit: No Status: Chronic Qualifiers: COPD type: unspecified COPD Qualified Code(s): J44.9 - Chronic obstructive pulmonary disease, unspecified (8) Morbid obesity with BMI of 40.0-44.9, adult Current Visit: No Status: Chronic (9) PVD (peripheral vascular disease) Current Visit: Yes Status: Chronic LLE IDALIA normal. RLE IDALIA reveal mild disease. (10) Venous stasis dermatitis of both lower extremities Current Visit: No Status: Chronic (11) Atrial fibrillation Current Visit: Yes Status: Chronic Qualifiers: Atrial fibrillation type: unspecified Qualified Code(s): I48.91 - Unspecified atrial fibrillation - Subjective Interval history: Patient seen and examined. No acute events noted overnight. Patient sitting up in bed during exam.. Report some intermittent fevers and chills overnight. Denies chest pain, shortness of breath, or cough. Denies nausea, vomiting, diarrhea, constipation. Denies abdominal pain and states his appetite is okay. Denies any urinary complaints. Complains of pain in the plantar aspect of the right foot in the posterior aspect of the right calf. Denies any oral thrush or new skin lesions. Infect Dis PN-Objective Data - Labs CBC & Chem 7: 06/26/16 05:08 06/26/16 05:08 Labs: Laboratory Results - last 24 hr 06/24/16 06/24/16 06/25/16 11:53 21:15 04:00 WBC RBC Hgb Hct MCV MCH MCHC RDW Plt Count MPV Immature Gran % Seg Neutrophils % Lymphocytes % Monocytes % Eosinophils % Basophils % Neutrophils # Lymphocytes # Monocytes # Eosinophils # Basophils # APTT 45.5 H 47.5 H 93.0 H D Heparin Anti-Xa, Unfract Sodium Potassium Chloride Carbon Dioxide BUN Creatinine Est GFR ( Amer) Est GFR (Non-Af Amer) BUN/Creatinine Ratio Glucose Calculated Osmolality Calcium 06/25/16 06/25/16 06/25/16 09:59 12:52 12:52 WBC 11.9 H RBC 3.68 L Hgb 10.5 L Hct 31.9 L MCV 86.7 MCH 28.5 MCHC 32.9 RDW 14.2 Plt Count 256 MPV 11.0 Immature Gran % 0.4 Seg Neutrophils % 68.5 Lymphocytes % 14.8 Monocytes % 9.4 Eosinophils % 6.3 Basophils % 0.6 Neutrophils # 8.1 Lymphocytes # 1.8 Monocytes # 1.1 Eosinophils # 0.8 H Basophils # 0.1 APTT 118.5 H* 39.4 H D Heparin Anti-Xa, Unfract 0.78 H Sodium Potassium Chloride Carbon Dioxide BUN Creatinine Est GFR ( Amer) Est GFR (Non-Af Amer) BUN/Creatinine Ratio Glucose Calculated Osmolality Calcium 06/25/16 12:52 WBC RBC Hgb Hct MCV MCH MCHC RDW Plt Count MPV Immature Gran % Seg Neutrophils % Lymphocytes % Monocytes % Eosinophils % Basophils % Neutrophils # Lymphocytes # Monocytes # Eosinophils # Basophils # APTT Heparin Anti-Xa, Unfract Sodium 128 L Potassium 4.0 Chloride 90 L Carbon Dioxide 24 BUN 61 H D Creatinine 5.01 H D Est GFR ( Amer) 15 L Est GFR (Non-Af Amer) 12 L BUN/Creatinine Ratio 12 Glucose 280 H Calculated Osmolality 293 Calcium 8.4 L Cultures: 06/23/16 Right foot wound culture: GPC and GBS Exam - Constitutional Vitals: Temp Pulse Resp BP Pulse Ox 98.5 F 60 20 102/57 95 06/25/16 10:52 06/25/16 10:52 06/25/16 10:52 06/25/16 10:52 06/25/16 10:52 General appearance: cooperative, no acute distress, obese - Head Head exam: Present: atraumatic, normal inspection, normocephalic - Eye Eye exam: Present: EOMI, normal appearance, PERRL Pupils: Present: normal accommodation - ENT ENT exam: Present: mucous membranes moist - Neck Neck exam: Present: normal inspection - Respiratory Respiratory exam: Present: CTAB. Absent: rales, respiratory distress, rhonchi, wheezes - Cardiovascular Cardiovascular exam: Present: irregular rhythm. Absent: tachycardia - GI/Abdominal GI/Abdominal exam: Present: distended (obese), normal bowel sounds, soft. Absent: tenderness - Extremities Exam Extremities exam: Present: pedal edema (2+ RLE), tenderness (plantar aspect right foot, right posterior calf). Absent: joint swelling Additional comments: Right foot dressing C/D/I. - Neurological Exam Neurological exam: Present: alert, oriented X3, no focal deficits - Psychiatric Psychiatric exam: Present: normal affect, normal mood - Skin Skin exam: Present: dry, intact, normal color, warm Consult Discharge Plan - Plan Referrals: Joan Lockhart [Primary Care Provider] - - Attending Attestation I examined this patient and my medical decision-making was reviewed with the MANAGER RECOVERY/PA/Advanced Practice Nurse/Resident Physician. I agree with the documented findings, disposition and treatment plan as described except to the extent set forth below.
[2016-06-25] MEDS ORDERED: Vancomycin 1 EACH in EMPTY BAG 1 EACH IVPB SCH (14:00)
[2016-06-25] MEDS: Heparin 25,000 UNIT/500 ML D5W 25,000 UNIT/500 ML MLS IVC SCH (14:24)
--- NOTE | 2016-06-25 16:04 | Internal Med Progress Note ---
Date of Encounter: 06/25/16 Time of Encounter: 16:02 - Assessment and plan (1) Chronic kidney disease, stage IV (severe) Current Visit: Yes Status: Chronic Assessment and plan: Renal function worsened today. denies any decreased urine output. possible 2/2 vancomycin toxicity, he is also on lasix 80 mg bid for peripheral edema , h/o DHF and CKD. vancomycin has been stopped, and will hold the lasix for now. he follows with Quiana Monge in nephrology, will consult for assisting in OZZIE in CKD. monitor urine output. (2) CAD (coronary artery disease) Current Visit: No Status: Chronic Qualifiers: Coronary Disease-Associated Artery/Lesion type: [place] artery [place] vs. transplanted heart: [place] heart Associated angina: without angina Qualified Code(s): I25.10 - Atherosclerotic heart disease of [place] coronary artery without angina pectoris (3) Diabetic ulcer of right foot Current Visit: Yes Status: Acute Assessment and plan: Infectious disease consult appreciated. Continue IV antibiotics. Podiatry managing. planned for I and D with podiatry on . Qualifiers: Diabetic foot ulcer location: other Diabetes mellitus type: type 2 Non- pressure ulcer stage: with fat layer exposed Qualified Code(s): E11.621 - Type 2 diabetes mellitus with foot ulcer; L97.512 - Non-pressure chronic ulcer of other part of right foot with fat layer exposed (4) Morbid obesity with BMI of 40.0-44.9, adult Current Visit: No Status: Chronic (5) Atrial fibrillation Current Visit: Yes Status: Chronic Assessment and plan: Rate controlled. On anticoagulation with heparin in anticipation for surgery. Qualifiers: Atrial fibrillation type: unspecified Qualified Code(s): I48.91 - Unspecified atrial fibrillation (6) Hypertension Current Visit: Yes Status: Chronic Assessment and plan: Elevated this morning. We will reassess after patient receives his usual medications. And adjust antihypertensive medications accordingly. Qualifiers: Hypertension type: essential hypertension Qualified Code(s): I10 - Essential (primary) hypertension - Subjective Interval history: seen at the bedside, denies any complains. reports that the pain is well controlled. - Constitutional Vitals: Temp Pulse Resp BP Pulse Ox 97.7 F 61 18 115/63 95 06/25/16 14:58 06/25/16 14:58 06/25/16 14:58 06/25/16 14:58 06/25/16 14:58 General appearance: Present: cooperative, A&O X 3, morbidly obese, no acute distress Exam: - Respiratory Respiratory exam: Present: CTAB. Absent: accessory muscle use, rales, rhonchi, wheezes - Cardiovascular Cardiovascular exam: Present: RRR, +S1, +S2. Absent: diastolic murmur, gallop, rubs, systolic murmur - GI/Abdominal GI/Abdominal exam: Present: normal bowel sounds, soft, no peritoneal signs. Absent: distended, tenderness - Extremities Exam Extremities exam: Present: warm, radial pulses palpable and symetrical. Absent : calf tenderness, cyanotic, pedal edema Additional comments: Stasis dermatitis present bilaterally. - Neurological Exam Neurological exam: Present: oriented X3, no focal deficits. Absent: facial droop, speech deficit - Skin Skin exam: Present: dry, intact Internal Medicine: Result - Labs CBC & Chem 7: 06/25/16 12:52 06/25/16 12:52 Labs: Short CBC 06/25/16 Range/Units 12:52 WBC 11.9 H (4.3-11.1) K/mcL Hgb 10.5 L (12.9-16.9) g/dL Hct 31.9 L (37.5-50.1) % Plt Count 256 (140-400) K/mcL Neutrophils # 8.1 (1.6-8.9) K/mcL BMP 06/25/16 12:52 Sodium 128 L Potassium 4.0 Chloride 90 L Carbon Dioxide 24 BUN 61 H D Creatinine 5.01 H D Glucose 280 H Calcium 8.4 L - ABG Interpretation ABG results: PT/INR, D-dimer PT 16.7 Seconds (9.4-12.1) H 06/23/16 16:13 Consult Discharge Plan - Plan Referrals: Joan Lockhart [Primary Care Provider] -
--- NOTE | 2016-06-25 19:35 | Anesthesia Evaluation PreOp ---
Date of Encounter: 06/25/16 Time of Encounter: 19:33 - Past History Planned Operation: I&D r foot poss MT osteotomy Cardiac History: OR (2011 with stent, sx's at that time diaphoresis/dizziness), HTN, Arrhythmia (AF), Cardiac Stent, Other (Echo 07/25: ef 55, bbb, nl fct rv, mild mr, mod pulm htn rvsp 49. 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: Denies Any Significant HX Other Medical History: Renal (Stage IV renal failure), Diabetes Type II (poorly controlled dmII, accuchecks in the 300's, a1c 13), Thyroid, GERD, Other (pt makes urined, no HD yet) Anesthesia History: No Prior Anesthetic Complications, Past Anesthesia (LUE AVF,LE stent/angioplasty) Alcohol Use: none Drug use: none Medications and Allergies Allopurinol [Zyloprim 100 MG] 100 mg PO DAILY 05/10/15 [History] Aspirin [Adult Low Dose Aspirin EC] 81 mg PO DAILY 05/10/15 [History] Cholecalciferol (Vitamin D3) [Vitamin D3] 5,000 unit PO DAILY 05/10/15 [History] Gabapentin [Neurontin] 300 mg PO BID 05/10/15 [History] Isosorbide MONOnitrate (24 HR) [Imdur] 30 mg PO DAILY 05/10/15 [History] Levothyroxine Sodium [Synthroid] 200 mcg PO QAM 05/10/15 [History] Rosuvastatin [Crestor] 40 mg PO HS 05/10/15 [History] Nitroglycerin [Nitrostat] 0.4 mg SL AD PRN 07/15/15 [History] Furosemide [Lasix] 80 mg PO BID 30 Days 07/19/15 [Rx] Lisinopril [Zestril] 10 mg PO DAILY #30 tablet 08/08/15 [Rx] amLODIPine [Norvasc] 10 mg PO DAILY #60 tablet 08/08/15 [Rx] Omeprazole [PriLOSEC] 40 mg PO DAILY 01/10/16 [History] Warfarin [Coumadin] 10 mg PO QPM 01/10/16 [History] Calcitriol [Rocaltrol] 0.25 mcg PO DAILY 05/29/16 [History] Metoprolol Succinate 100 mg PO DAILY 05/29/16 [History] Insulin Glargine,Hum.rec.anlog [Basaglar Kwikpen U-100] 60 unit SQ BID #1 insuln.pen 05/31/16 [Rx] Insulin Human Regular [HumuLIN R] 6 - 18 unit SQ TIDWM 06/23/16 [History] Allergies Iodinated Contrast Media - Oral and Allergy (Verified 06/23/16 14:06) Swelling of Lip/Tongue/Throat - Meds/Allergy Pre-op Review Medications Reviewed: Yes Allergies Reviewed: Yes Beta Blockers on Current Med List: Yes If Beta Blockers taken, Date/Time (Last Dose taken): metoprolol 06/25 at 7:40 Anesthesia Results - Labs 06/25/16 12:52 06/25/16 12:52 - Imaging EKG: report reviewed (SR) Anesthesia Exam Vital Signs/O2 Sat/Glucose, Most Current Temp Pulse Resp BP Pulse Ox 06/25/16 17:33 97.8 F 76 20 138/71 95 Height: 1.83 Weight: 145 NPO (# of Hours): >8 - HEENT Pupil (Motor): Pupils equal, EOMI Mallampati: III Teeth: Edentulous, Poor dentition Oral Opening: Greater than 3 - 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
[2016-06-25 21:11] LABS: Activated Partial Thrombo Time 151.9 Seconds (26.0-36.0)
[2016-06-26] MEDS: Heparin 25,000 UNIT/500 ML D5W 25,000 UNIT/500 ML MLS IVC SCH ×2 (00:57→16:38)
[2016-06-26] MEDS: *HR* OxyCODONE/APAP 5/325 TABLET PO PRN ×2 (04:59→21:11)
[2016-06-26 05:29] LABS: Calcium 8.1 mg/dL (8.6-10.8); Potassium 3.8 mEq/L (3.5-4.5)
[2016-06-26 05:41] LABS: Activated Partial Thrombo Time 143.5 Seconds (26.0-36.0)
[2016-06-26 06:24] LABS: Heparin anti-factor XA UFH 0.97 IU/mL (0.30-0.70)
[2016-06-26 07:14] LABS: Basophils # 0.1 K/mcL (0.0-0.2); Basophils % 0.5 %; Eosinophils # 0.8 K/mcL (0.0-0.6); Eosinophils % 7.3 %; Hematocrit 30.7 % (37.5-50.1); Hemoglobin 10.3 g/dL (12.9-16.9); Immature Granulocytes % 0.6 % (0-4); Lymphocytes # 1.4 K/mcL (0.6-4.6); Mean Corpuscular HGB Conc 33.6 g/dL (31.6-35.5); Mean Corpuscular Hemoglobin 28.9 pg (28.0-33.3); Mean Platelet Volume 11.3 fL (9.4-12.4); Monocytes # 1.3 K/mcL (0.0-1.3); Monocytes % 11.7 %; Neutrophils # 7.4 K/mcL (1.6-8.9); Platelet Count 253 K/mcL (140-400); Red Blood Count 3.57 M/mcL (4.19-5.50); Red Cell Distribution Width 14.3 % (11.5-14.5); Segmented Neutrophils % 66.9 %
[2016-06-26] MEDS: Isosorbide MONOnitrate (24 HR) 30 MG TAB.ER.24H PO SCH (08:04)
[2016-06-26] MEDS: Metoprolol 100 MG TABLET PO SCH (08:04)
[2016-06-26] MEDS: amLODIPine 5 MG TABLET PO SCH (08:05)
[2016-06-26] MEDS: Piperacillin/Tazobactam 3.375 GM in D5% in Water (Mini-Bag+) 100 ML IVPB SCH ×2 (08:05→20:47)
[2016-06-26] MEDS: Insulin LISPRO 300 UNITS/3 ML VIAL SQ SCH ×7 (08:06→20:55)
[2016-06-26] MEDS: Aspirin Enteric Coated 81 MG Tablet PO SCH (08:07)
[2016-06-26] MEDS: Cholecalciferol (D-3) 1,000 UNIT TABLET PO SCH (08:08)
[2016-06-26] MEDS: Gabapentin 300 MG CAPSULE PO SCH ×2 (08:08→20:47)
[2016-06-26] MEDS: Insulin DETEMIR 100 UNIT/ML X5UNITS SQ SCH ×2 (08:16→21:04)
--- NOTE | 2016-06-26 09:24 | Nephrology Consult Note ---
Date of Encounter: 06/26/16 Time of Encounter: 08:35 Assessment and Plan (1) Acute on chronic renal failure Current Visit: No Status: Acute OZZIE most likely related to Vanco and Zosyn, superimposed on CKD 4 in setting of diabetic nephropathy. Left radiocephalic in place, + bruit/thrill, mature enough for use if needed. No immediate need for HD, will continue to follow. Would prefer not to use Zosyn due to nephrotoxicity. History of Present Illness - Reason for Consult Acute Kidney Injury, Chronic Kidney Disease - History of Present Illness Mr. Oneal is a 56 year old male well known to practice with CKD 4, with steadily progressing disease, in setting of diabetic nephropathy. Last seen in April, baseline creat 2.8-2.9. He has had dialysis education and has left radiocephalic AV fistula. Positive bruit/thrill. Mature enough for access if HD needed. Other PMH- arthritis, atrial fibrillation, CHF, COPD, coronary artery disease, DVT, diabetes, GERD, hyperlipidemia, hypertension, kidney stones, myocardial infarction, osteoporosis, peripheral artery disease, thyroid disease , venous stasis. Mr. Ordoñez was admitted on June 23 for ongoing right foot plantar wound. He has been on Vancomycin and Zosyn. Vanco has been stopped. He states is scheduled for I&D this afternoon. Past Med Surg Social Fam HX - Past Medical History Medical history: arthritis, atrial fibrillation, CHF, COPD, coronary artery disease, DVT, diabetes, GERD, hyperlipidemia, hypertension, kidney stones, myocardial infarction, osteoporosis, peripheral artery disease, renal disease, thyroid disease, venous stasis, other Psychiatric history: no psych history - Past Surgical History Surgical History: angioplasty/stent, LE vascular intervention, orthopedic, other , other - Social History Smoking Status: Former smoker Smokeless Tobacco Status: No Alcohol use: none Drug use: none - Family History Mother Living Status: Hx Family Cancer: Yes (Stomach Cancer) Hx Family Endocrine Disorder: Yes Father Family Member Ethnicity: Non- Living Status: Hx Family Cardiac Disorders: Yes (VT) Hx Family Cancer: Yes Hx Family Endocrine Disorder: Yes Medications and Allergies Allopurinol [Zyloprim 100 MG] 100 mg PO DAILY 05/10/15 [History] Aspirin [Adult Low Dose Aspirin EC] 81 mg PO DAILY 05/10/15 [History] Cholecalciferol (Vitamin D3) [Vitamin D3] 5,000 unit PO DAILY 05/10/15 [History] Gabapentin [Neurontin] 300 mg PO BID 05/10/15 [History] Isosorbide MONOnitrate (24 HR) [Imdur] 30 mg PO DAILY 05/10/15 [History] Levothyroxine Sodium [Synthroid] 200 mcg PO QAM 05/10/15 [History] Rosuvastatin [Crestor] 40 mg PO HS 05/10/15 [History] Nitroglycerin [Nitrostat] 0.4 mg SL AD PRN 07/15/15 [History] Furosemide [Lasix] 80 mg PO BID 30 Days 07/19/15 [Rx] Lisinopril [Zestril] 10 mg PO DAILY #30 tablet 08/08/15 [Rx] amLODIPine [Norvasc] 10 mg PO DAILY #60 tablet 08/08/15 [Rx] Omeprazole [PriLOSEC] 40 mg PO DAILY 01/10/16 [History] Warfarin [Coumadin] 10 mg PO QPM 01/10/16 [History] Calcitriol [Rocaltrol] 0.25 mcg PO DAILY 05/29/16 [History] Metoprolol Succinate 100 mg PO DAILY 05/29/16 [History] Insulin Glargine,Hum.rec.anlog [Basaglar Kwikpen U-100] 60 unit SQ BID #1 insuln.pen 05/31/16 [Rx] Insulin Human Regular [HumuLIN R] 6 - 18 unit SQ TIDWM 06/23/16 [History] Allergies Iodinated Contrast Media - Oral and Allergy (Verified 06/23/16 14:06) Swelling of Lip/Tongue/Throat Review of Systems All Systems: reviewed and no additional remarkable complaints except as stated Exam - Vital Signs Vital signs: Initial Vital Signs Pulse Resp BP 78 17 144/73 06/23/16 15:10 06/23/16 15:10 06/23/16 15:10 Vital Signs - Last 8 Hours Temp Pulse Resp BP Pulse Ox 06/26/16 07:21 98.0 F 76 14 137/69 94 06/26/16 04:49 99.6 F 78 19 171/76 93 Intake and Output 06/25/16 06/26/16 06/26/16 23:59 07:59 15:59 Intake Total 420 / 420 430 / 430 85 / 85 Output Total 450 / 450 300 / 300 Balance -30 / -30 130 / 130 85 / 85 Intake: IV Fluids 420 / 420 430 / 430 85 / 85 Heparin 25,000 UNIT/500 420 / 420 330 / 330 85 / 85 ML D5W 25,000 unit In 500 ml @ 14 UNIT/KG/HR 40. 769 mls/hr IVC .[id number] [facility] Rx#:[id number] Zosyn 3.375 GM In 100 / 100 Dextrose 5% (Minibag+) 100 ML 100 ML @ 25 mls/hr IVPB Q12H [facility] Rx#: [id number] Output: Urine 450 / 450 300 / 300 Other: Stool Size Moderate Stool Consistency loose liquid Stool Color Brown # Voids 1 Blood Glucose* 295 257 - General Appearance General appearance: well-developed, well-nourished, appears started age, obese EENT: mucous membranes moist Neck: no JVD Respiratory: clear Cardiology: edema, regular rate, regular rhythm Additional Comments: mild pitting - Dialysis Access Dialysis Vascular Access: Arteriovenous Fistula thrill: Yes bruit: Yes Additional Comments: left radiocephalic Gastrointestinal: normoactive bowel sounds, no tenderness, no guarding Integumentary: no rash, warm and dry Neurologic: alert and oriented x3 Psychiatric: mood/affect appropriate, cooperative Results - Lab Results 06/26/16 05:08 06/26/16 05:08 Most recent lab results Calcium 8.1 mg/dL (8.6-10.8) L 06/26/16 05:08 Consult Discharge Plan - Plan Referrals: Joan Lockhart [Primary Care Provider] -
[2016-06-26] MEDS ORDERED: Aminoglycoside Consult 1 EACH MC ONE (10:53)
--- NOTE | 2016-06-26 11:59 | Infectious Disease Progress No ---
Date of Encounter: 06/26/16 Time of Encounter: 11:56 - Assessment and Plan (1) Leukocytosis Current Visit: Yes Status: Acute WBC 12.9 on admission. Normal yesterday. Back up to 11.9 this morning. Likely secondary to right foot DFU infection. No fevers documented, but the patient reports subjective fevers and chills. Blood cultures drawn 06/24/16 are NGTDx 2 sets. Qualifiers: Leukocytosis type: unspecified Qualified Code(s): D72.829 - Elevated white blood cell count, unspecified (2) Right foot infection Current Visit: Yes Status: Acute Location: Plantar aspect of the right foot. Causative organism unclear. Previous wound culture from May 2016 grew out MSSA. Secondary to poor-fitting shoes. X-ray of the right foot showed no evidence of OM or gas. ESR >130, CRP 181. Wound cultures obtained in the Podiatry office are positive for GPC, likely Staph species, and GBS. Blood cultures x 2 sets are NGTD. Podiatry plans to take the patient to the OR on for formal I & D. Await intra-operative findings. Continue Zosyn 3.375 grams IV Q8H. May need to dose-adjust based on the patients sudden rise in creatinine overnight. Duration of treatment depends on the clinical picture. Await wound culture and intra-operative findings before we decide on the long-term plan of care. Monitor renal function and for drug toxicity and dose-adjust antibiotics. (3) Diabetic ulcer of right foot Current Visit: Yes Status: Acute Location: Plantar aspect of the right foot. Follows with Dr. Mc in the Podiatry clinic. Continue wound care per Dr. Mc's recommendations. Qualifiers: Diabetic foot ulcer location: other Diabetes mellitus type: type 2 Non- pressure ulcer stage: with fat layer exposed Qualified Code(s): E11.621 - Type 2 diabetes mellitus with foot ulcer; L97.512 - Non-pressure chronic ulcer of other part of right foot with fat layer exposed (4) Chronic kidney disease, stage IV (severe) Current Visit: Yes Status: Chronic Serum creatinine worse this morning. Nephrology consulted. Await their recommendations. Discontinue Vancomycin in order to minimize nephrotoxins. Dose-adjust antibiotics based on creatinine clearance. (5) Diabetes mellitus Current Visit: No Status: Chronic Uncontrolled. HgbA1C 13.1 --> non-compliance vs. ineffective treatment regimen. Recommend aggressive glucose monitoring and control to promote wound healing and prevent re-infection. 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 transplanted heart: [place] heart Associated angina: without angina Qualified Code(s): I25.10 - Atherosclerotic heart disease of [place] coronary artery without angina pectoris (7) COPD (chronic obstructive pulmonary disease) Current Visit: No Status: Chronic Qualifiers: COPD type: unspecified COPD Qualified Code(s): J44.9 - Chronic obstructive pulmonary disease, unspecified (8) Morbid obesity with BMI of 40.0-44.9, adult Current Visit: No Status: Chronic (9) PVD (peripheral vascular disease) Current Visit: Yes Status: Chronic LLE IDALIA normal. RLE IDALIA reveal mild disease. (10) Venous stasis dermatitis of both lower extremities Current Visit: No Status: Chronic (11) Atrial fibrillation Current Visit: Yes Status: Chronic Qualifiers: Atrial fibrillation type: unspecified Qualified Code(s): I48.91 - Unspecified atrial fibrillation - Subjective Interval history: Patient seen and examined. No acute events noted overnight. Patient sitting up in the chair at this time. Denies any fevers or chills. Denies chest pain, shortness of breath, or cough. Denies nausea, vomiting, or constipation. He does report some diarrhea. Denies abdominal pain and states his appetite is okay , but he is currently NPO for surgery later today. Denies any urinary complaints. Complains of pain in the plantar aspect of the right foot in the posterior aspect of the right calf. Denies any oral thrush or new skin lesions. Infect Dis PN-Objective Data - Labs CBC & Chem 7: 06/26/16 05:08 06/26/16 05:08 Labs: Laboratory Results - last 24 hr 05/16/17 05/16/17 05/16/17 07:24 11:06 11:07 WBC RBC Hgb Hct MCV MCH MCHC RDW Plt Count MPV Immature Gran % Seg Neutrophils % Lymphocytes % Monocytes % Eosinophils % Basophils % Neutrophils # Lymphocytes # Monocytes # Eosinophils # Basophils # APTT Heparin Anti-Xa, Unfract Sodium Potassium Chloride Carbon Dioxide BUN Creatinine Est GFR ( Amer) Est GFR (Non-Af Amer) BUN/Creatinine Ratio Glucose POC Glucose 299 H 495 H* 465 H* Calculated Osmolality Calcium Random Vancomycin 06/24/16 06/24/16 06/25/16 16:20 20:17 07:11 WBC RBC Hgb Hct MCV MCH MCHC RDW Plt Count MPV Immature Gran % Seg Neutrophils % Lymphocytes % Monocytes % Eosinophils % Basophils % Neutrophils # Lymphocytes # Monocytes # Eosinophils # Basophils # APTT Heparin Anti-Xa, Unfract Sodium Potassium Chloride Carbon Dioxide BUN Creatinine Est GFR ( Amer) Est GFR (Non-Af Amer) BUN/Creatinine Ratio Glucose POC Glucose 358 H 286 H 272 H Calculated Osmolality Calcium Random Vancomycin 06/25/16 06/25/16 06/25/16 10:55 12:52 12:52 WBC 11.9 H RBC 3.68 L Hgb 10.5 L Hct 31.9 L MCV 86.7 MCH 28.5 MCHC 32.9 RDW 14.2 Plt Count 256 MPV 11.0 Immature Gran % 0.4 Seg Neutrophils % 68.5 Lymphocytes % 14.8 Monocytes % 9.4 Eosinophils % 6.3 Basophils % 0.6 Neutrophils # 8.1 Lymphocytes # 1.8 Monocytes # 1.1 Eosinophils # 0.8 H Basophils # 0.1 APTT 39.4 H D Heparin Anti-Xa, Unfract Sodium Potassium Chloride Carbon Dioxide BUN Creatinine Est GFR ( Amer) Est GFR (Non-Af Amer) BUN/Creatinine Ratio Glucose POC Glucose 312 H Calculated Osmolality Calcium Random Vancomycin 06/25/16 06/25/16 06/25/16 12:52 16:06 20:28 WBC RBC Hgb Hct MCV MCH MCHC RDW Plt Count MPV Immature Gran % Seg Neutrophils % Lymphocytes % Monocytes % Eosinophils % Basophils % Neutrophils # Lymphocytes # Monocytes # Eosinophils # Basophils # APTT 151.9 H* D Heparin Anti-Xa, Unfract 1.00 H* Sodium 128 L Potassium 4.0 Chloride 90 L Carbon Dioxide 24 BUN 61 H D Creatinine 5.01 H D Est GFR ( Amer) 15 L Est GFR (Non-Af Amer) 12 L BUN/Creatinine Ratio 12 Glucose 280 H POC Glucose 326 H Calculated Osmolality 293 Calcium 8.4 L Random Vancomycin 06/25/16 06/26/16 06/26/16 21:10 05:08 05:08 WBC 11.0 RBC 3.57 L Hgb 10.3 L Hct 30.7 L MCV 86.0 MCH 28.9 MCHC 33.6 RDW 14.3 Plt Count 253 MPV 11.3 Immature Gran % 0.6 Seg Neutrophils % 66.9 Lymphocytes % 13.0 Monocytes % 11.7 Eosinophils % 7.3 Basophils % 0.5 Neutrophils # 7.4 Lymphocytes # 1.4 Monocytes # 1.3 Eosinophils # 0.8 H Basophils # 0.1 APTT Heparin Anti-Xa, Unfract Sodium Potassium Chloride Carbon Dioxide BUN Creatinine Est GFR ( Amer) Est GFR (Non-Af Amer) BUN/Creatinine Ratio Glucose POC Glucose 295 H Calculated Osmolality Calcium Random Vancomycin 43.5 06/26/16 06/26/16 06/26/16 05:08 05:08 10:52 WBC RBC Hgb Hct MCV MCH MCHC RDW Plt Count MPV Immature Gran % Seg Neutrophils % Lymphocytes % Monocytes % Eosinophils % Basophils % Neutrophils # Lymphocytes # Monocytes # Eosinophils # Basophils # APTT 143.5 H* 27.9 D Heparin Anti-Xa, Unfract 0.97 H Sodium 129 L Potassium 3.8 Chloride 93 L Carbon Dioxide 21 BUN 64 H Creatinine 5.39 H Est GFR ( Amer) 13 L Est GFR (Non-Af Amer) 11 L BUN/Creatinine Ratio 12 Glucose 259 H POC Glucose Calculated Osmolality 295 Calcium 8.1 L Random Vancomycin 06/26/16 11:16 WBC RBC Hgb Hct MCV MCH MCHC RDW Plt Count MPV Immature Gran % Seg Neutrophils % Lymphocytes % Monocytes % Eosinophils % Basophils % Neutrophils # Lymphocytes # Monocytes # Eosinophils # Basophils # APTT Heparin Anti-Xa, Unfract Sodium Potassium Chloride Carbon Dioxide BUN Creatinine Est GFR ( Amer) Est GFR (Non-Af Amer) BUN/Creatinine Ratio Glucose POC Glucose 235 H Calculated Osmolality Calcium Random Vancomycin Cultures: Cultures 06/24/16 09:41 Blood Culture - Preliminary Peripheral Venipuncture No growth. 06/24/16 09:41 Blood Culture - Preliminary Peripheral Venipuncture No growth. Exam - Constitutional Vitals: Temp Pulse Resp BP Pulse Ox 97.5 F L 60 16 163/85 95 06/26/16 11:19 06/26/16 11:19 06/26/16 11:19 06/26/16 11:19 06/26/16 11:19 General appearance: cooperative, no acute distress, obese - Head Head exam: Present: atraumatic, normal inspection, normocephalic - Eye Eye exam: Present: EOMI, normal appearance, PERRL Pupils: Present: normal accommodation - ENT ENT exam: Present: mucous membranes moist - Neck Neck exam: Present: normal inspection - Respiratory Respiratory exam: Present: CTAB. Absent: rales, respiratory distress, rhonchi, wheezes - Cardiovascular Cardiovascular exam: Present: irregular rhythm. Absent: tachycardia - GI/Abdominal GI/Abdominal exam: Present: distended (obese), normal bowel sounds, soft. Absent: tenderness - Extremities Exam Additional comments: 2+ edema noted to the BLE with venous stasis dermatitis. No erythema or lymphangitis noted. Right foot dressing C/D/I. - Neurological Exam Neurological exam: Present: alert, oriented X3, no focal deficits - Psychiatric Psychiatric exam: Present: normal affect, normal mood - Skin Skin exam: Present: dry, intact, normal color, warm Consult Discharge Plan - Plan Referrals: Joan Lockhart [Primary Care Provider] - - Attending Attestation I examined this patient and my medical decision-making was reviewed with the RADIOACTIVITY TECHNICIAN/PA/Advanced Practice Nurse/Resident Physician. I agree with the documented findings, disposition and treatment plan as described except to the extent set forth below.
[2016-06-26] MEDS ORDERED: *HR* FentaNYL (PF) 100 MCG/2 ML VIAL ONE (12:37)
[2016-06-26] MEDS ORDERED: Lidocaine -MPF 2% 2 ML VIAL ONE (12:37)
[2016-06-26] MEDS ORDERED: *HR* Propofol 200 MG/20 ML VIAL IVP ONE (12:38)
[2016-06-26] MEDS ORDERED: Bupivacaine/Clonidine Syringe 1 EACH SYRINGE ONE (12:47)
[2016-06-26] MEDS ORDERED: Lidocaine 1% 20 ML MDV ONE (12:47)
--- NOTE | 2016-06-26 12:51 | History & Physical Report ---
Date of Encounter: 06/26/16 Time of Encounter: 12:51 24 Hour HP Update - Instructions Instructions: If the History and Physical is less than 30 days old and was completed prior to A.M. admission and or procedure and has NOT been updated on calendar day of procedure please complete this update prior to performing procedure. - Update Patient reports changes in Medical Condition: No Changes in examination, assessment, or condition: No Changes in Medication: No Preop tests/diagnostics Reviewed: Yes Pre-Op MRSA Screen: Negative Surgery Remains Indicated: Yes Consent for Planned Operative Procedure(s) Verified: Yes
--- NOTE | 2016-06-26 14:09 | Anesthesia Evaluation Post Op ---
Date of Encounter: 06/26/16 Time of Encounter: 12:59 - Vital Signs Vital Signs: vss - Lungs Lungs: Clear Ascult./Percussion - Airway Airway: Non-obstructed - Cardiovascular Baseline Rhythm - Mental Status Mental Status: Asleep with brisk response to light stimulation - Pain Pain Scale used: Myriam (Faces) - Nausea Vomiting Nausea Vomiting: Not Present - Discharge PostOp Status: Transfer Patient to floor
--- NOTE | 2016-06-26 14:18 | Orthopedic Operative Note ---
Date of procedure: 06/26/16 Pre-op diagnosis: Diabetic foot ulcer with abscess plantar right foot Post-op diagnosis: same Procedure: 06/26/16 14:10 #1 incision and drainage of multiple areas right foot. #2 application of wound VAC. Implants: None Complications: None Anesthesia: MAC, regional, local Local Anesthetics: 0.25% Sensorcaine HCL SubQ (cc) Surgeon: Rafael Mc Estimated blood loss (cc): 10 Tourniquet Time (Minutes): 0 Specimen: None, cultures taken aerobic and anaerobic tissue Condition: stable Disposition: floor Procedure in Detail: 06/26/16 14:11 Detail summary of procedure: Patient brought to surgical suite. Sign in procedure performed patient remained on the transported bed. Patient was Positioned Properly Safely Securely. Right Foot Elevated on Foam Block. The right ankle was prepped with alcohol, 3 times. A posterior tibial nerve block was carried out without difficulty or complication. The right foot was prepped and draped in usual sterile manner. Surgical Timeout Taken. The wound was identified on the plantar aspect the Second MTPJ Right Foot. Measured 2 Cm x 2 Cm with Tunnel/Sinus Tract Radiating at the 4 O'clock Position and the 6 O' clock Position. An Incision Was Then Made at the 5 O'clock Position of the open ulceration proximally and obliquely at the 5 O'clock Position. Purulent drainage was expressed and cultured immediately Aerobic and Anaerobic. Sharp Dissection was continued down to the Deep Fascia. A tunnel was noted to radiate to the first web space but did not enter the first webspace. The infection spared the central space as well as the medial space. Debridement of all nonviable tissue was undertaken with a pickup and Metzenbaum Tissue culture taken. A ultrasonic misonix debrider was used to completely debride the wound without difficulty or complication. active bleeding was contolled through judicious use of a bovie. After complete debridement and inspection the wound was found to be clean. unfortunately the plantar capsular structures were compromised/ruptured and the plantar aspect of the head of the second metatarsal was visualized within the wound. therefore exposure of the joint was noted. The joint was then thoroughly irrigated with copious amounts sterile saline. One [id number] 3-0 Vicryl was placed to repair the plantar capsule. Proximal incision was then repaired with 2-o and 3-0 Prolene and wound VAC was applied. Patient tolerated procedure well. Estimated blood loss was less than 10 mL complications none. Patient was transported to hold room in good condition, with vital signs stable. 06/26/16 17:38
[2016-06-26] MEDS ORDERED: *HR* Dextrose 50 % in Water (Syg) 50 ML SYRINGE IVP PRN (14:22)
[2016-06-26] MEDS ORDERED: Nitroglycerin 0.4 MG TAB.SUBL SL PRN (14:22)
[2016-06-26] MEDS ORDERED: Dextrose Gel 15 GM PO PRN ×2 (14:22)
[2016-06-26] MEDS ORDERED: D5% in Water 1,000 ML IVC PRN (14:22)
--- NOTE | 2016-06-26 15:40 | Internal Med Progress Note ---
Date of Encounter: 06/26/16 Time of Encounter: 15:37 - Assessment and plan (1) Chronic kidney disease, stage IV (severe) Current Visit: Yes Status: Chronic Assessment and plan: Renal function worsened today. denies any decreased urine output. possible 2/2 vancomycin toxicity, he was also on lasix 80 mg bid for peripheral edema , h/o DHF and CKD. will cut down to 40 bid for now. vancomycin has been stopped, zosyn to be dosed renally. renal following, no need for HD at this time. monitor urine output. (2) CAD (coronary artery disease) Current Visit: No Status: Chronic Qualifiers: Coronary Disease-Associated Artery/Lesion type: [place] artery [place] vs. transplanted heart: [place] heart Associated angina: without angina Qualified Code(s): I25.10 - Atherosclerotic heart disease of [place] coronary artery without angina pectoris (3) Diabetic ulcer of right foot Current Visit: Yes Status: Acute Assessment and plan: Infectious disease consult appreciated. Continue IV antibiotics. Podiatry managing. planned for I and D with podiatry today Qualifiers: Diabetic foot ulcer location: other Diabetes mellitus type: type 2 Non- pressure ulcer stage: with fat layer exposed Qualified Code(s): E11.621 - Type 2 diabetes mellitus with foot ulcer; L97.512 - Non-pressure chronic ulcer of other part of right foot with fat layer exposed (4) Morbid obesity with BMI of 40.0-44.9, adult Current Visit: No Status: Chronic (5) Atrial fibrillation Current Visit: Yes Status: Chronic Assessment and plan: Rate controlled. heparin has been held for now in anticipation for surgery. Qualifiers: Atrial fibrillation type: unspecified Qualified Code(s): I48.91 - Unspecified atrial fibrillation (6) Hypertension Current Visit: Yes Status: Chronic Assessment and plan: continue current meds. Qualifiers: Hypertension type: essential hypertension Qualified Code(s): I10 - Essential (primary) hypertension - Subjective Interval history: seen at the bedside, denies any complains. reports that the pain is well controlled, planned for I and D today with Dr. Mc - Constitutional Vitals: Temp Pulse Resp BP Pulse Ox 98.4 F 87 16 130/67 93 06/26/16 14:25 06/26/16 14:25 06/26/16 14:25 06/26/16 14:25 06/26/16 14:25 General appearance: Present: cooperative, A&O X 3, morbidly obese, no acute distress Exam: Exam: - Respiratory Respiratory exam: Present: CTAB. Absent: accessory muscle use, rales, rhonchi, wheezes - Cardiovascular Cardiovascular exam: Present: RRR, +S1, +S2. Absent: diastolic murmur, gallop, rubs, systolic murmur - GI/Abdominal GI/Abdominal exam: Present: normal bowel sounds, soft, no peritoneal signs. Absent: distended, tenderness - Extremities Exam Extremities exam: Present: warm, radial pulses palpable and symetrical. Absent : calf tenderness, cyanotic, pedal edema - Neurological Exam Neurological exam: Present: oriented X3, no focal deficits. Absent: facial droop, speech deficit - Skin Skin exam: Present: dry, intact Internal Medicine: Result - Labs CBC & Chem 7: 06/26/16 05:08 06/26/16 05:08 Labs: Short CBC 06/26/16 Range/Units 05:08 WBC 11.0 (4.3-11.1) K/mcL Hgb 10.3 L (12.9-16.9) g/dL Hct 30.7 L (37.5-50.1) % Plt Count 253 (140-400) K/mcL Neutrophils # 7.4 (1.6-8.9) K/mcL BMP 06/26/16 05:08 Sodium 129 L Potassium 3.8 Chloride 93 L Carbon Dioxide 21 BUN 64 H Creatinine 5.39 H Glucose 259 H Calcium 8.1 L - ABG Interpretation ABG results: PT/INR, D-dimer PT 16.7 Seconds (9.4-12.1) H 06/23/16 16:13 Consult Discharge Plan - Plan Referrals: Joan Lockhart [Primary Care Provider] -
[2016-06-26] MEDS: Furosemide 40 MG TABLET PO SCH (16:40)
[2016-06-26] MEDS: *HR* Heparin 5,000 UNIT/ML VIAL IVP PRN (23:40)
[2016-06-27 05:26] LABS: Basophils # 0.1 K/mcL (0.0-0.2); Basophils % 0.7 %; Eosinophils # 0.8 K/mcL (0.0-0.6); Hematocrit 29.5 % (37.5-50.1); Hemoglobin 9.8 g/dL (12.9-16.9); Immature Granulocytes % 0.6 % (0-4); Lymphocytes % 20.6 %; Mean Corpuscular HGB Conc 33.2 g/dL (31.6-35.5); Mean Corpuscular Hemoglobin 28.5 pg (28.0-33.3); Mean Corpuscular Volume 85.8 fL (83.0-100.0); Mean Platelet Volume 11.4 fL (9.4-12.4); Monocytes % 10.4 %; Neutrophils # 5.8 K/mcL (1.6-8.9); Platelet Count 269 K/mcL (140-400); Red Blood Count 3.44 M/mcL (4.19-5.50); Red Cell Distribution Width 14.3 % (11.5-14.5); Segmented Neutrophils % 59.7 %
[2016-06-27 05:28] LABS: Potassium 3.9 mEq/L (3.5-4.5)
[2016-06-27] MEDS: Heparin 25,000 UNIT/500 ML D5W 25,000 UNIT/500 ML MLS IVC SCH ×2 (06:16→18:09)
[2016-06-27] MEDS: Insulin LISPRO 300 UNITS/3 ML VIAL SQ SCH ×7 (08:07→20:44)
[2016-06-27] MEDS: Metoprolol 100 MG TABLET PO SCH (08:08)
[2016-06-27] MEDS: amLODIPine 5 MG TABLET PO SCH (08:08)
[2016-06-27] MEDS: Isosorbide MONOnitrate (24 HR) 30 MG TAB.ER.24H PO SCH (08:08)
[2016-06-27] MEDS: Furosemide 40 MG TABLET PO SCH (08:09)
[2016-06-27] MEDS: Aspirin Enteric Coated 81 MG Tablet PO SCH (08:09)
[2016-06-27] MEDS: Gabapentin 300 MG CAPSULE PO SCH ×2 (08:09→09:10)
[2016-06-27] MEDS: Insulin DETEMIR 100 UNIT/ML X5UNITS SQ SCH ×2 (08:09→20:43)
[2016-06-27] MEDS: Cholecalciferol (D-3) 1,000 UNIT TABLET PO SCH (08:09)
[2016-06-27] MEDS ORDERED: 0.9 % Sodium Chloride 1,000 ML IVC ONE (08:50)
--- NOTE | 2016-06-27 08:53 | Internal Med Progress Note ---
Date of Encounter: 06/27/16 Time of Encounter: 08:51 - Assessment and plan (1) Acute on chronic renal failure Current Visit: Yes Status: Acute Assessment and plan: Renal function worsened today. denies any decreased urine output. possible 2/2 vancomycin toxicity, he was also on lasix 80 mg bid for peripheral edema , h/o DHF and CKD. His lasix was decreased to 40mg bid 06/26 Will hold lasix and ACEI for now vancomycin has been stopped, zosyn is dosed renally. renal following, no need for HD at this time,, patient has a mature AVG on his left arm Will challenge with IVF Renal USS urine eosinophils Strict intake/output Monitor resp status (2) COPD (chronic obstructive pulmonary disease) Current Visit: Yes Status: Chronic Assessment and plan: Not in exacerbation Duonebs prn Qualifiers: COPD type: unspecified COPD Qualified Code(s): J44.9 - Chronic obstructive pulmonary disease, unspecified (3) PETE (obstructive sleep apnea) Current Visit: Yes Status: Chronic Assessment and plan: BiPAP at night (4) Hypothyroidism Current Visit: Yes Status: Chronic Assessment and plan: Continue levothyroxine Qualifiers: Hypothyroidism type: unspecified Qualified Code(s): E03.9 - Hypothyroidism , unspecified (5) Chronic kidney disease, stage IV (severe) Current Visit: Yes Status: Chronic Assessment and plan: with OZZIE on CKD Mgt as in OZZIE Renal following (6) Morbid obesity with BMI of 45.0-49.9, adult Current Visit: Yes Status: Chronic Assessment and plan: Lifestyle modification (7) Obesity hypoventilation syndrome Current Visit: Yes Status: Chronic (8) Diabetes mellitus Current Visit: Yes Status: Chronic Assessment and plan: FS uncontrolled Increase levemir and lispro Continue to monitor FS ACHS Qualifiers: Diabetes mellitus type: type 2 Diabetes mellitus complication status: with kidney complications Diabetes mellitus complication detail: with chronic kidney disease 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 transplanted heart: [place] heart Associated angina: without angina Qualified Code(s): I25.10 - Atherosclerotic heart disease of [place] coronary artery without angina pectoris (10) Chronic anticoagulation Current Visit: Yes Status: Chronic Assessment and plan: Continue heparin drip, monitor CBC, INR, PTT (11) Atrial fibrillation Current Visit: Yes Status: Chronic Assessment and plan: Rate controlled. continue heparin Qualifiers: Atrial fibrillation type: unspecified Qualified Code(s): I48.91 - Unspecified atrial fibrillation (12) PVD (peripheral vascular disease) Current Visit: Yes Status: Chronic Assessment and plan: Chronic, stable, no intervention for now (13) Diabetic ulcer of right foot Current Visit: Yes Status: Acute Assessment and plan: Infectious disease consult appreciated. Continue IV antibiotics. Podiatry managing. POD 1 Follow wound culture results Continue only Zosyn for now Qualifiers: Diabetic foot ulcer location: other Diabetes mellitus type: type 2 Non- pressure ulcer stage: with fat layer exposed Qualified Code(s): E11.621 - Type 2 diabetes mellitus with foot ulcer; L97.512 - Non-pressure chronic ulcer of other part of right foot with fat layer exposed (14) Right foot infection Current Visit: Yes Status: Acute Assessment and plan: As above - Subjective Interval history: Seen and evaluated at bedside POD 1 s/p I and D of left foot Denies new complains No difficulty breathing pain is controlled Renal function is worse with elevated creatinine and GFR, potassium and BIcarb are acceptable Will challenge with IVF, check renal USS, urine eosinophils, nephrology is following - Constitutional Vitals: Temp Pulse Resp BP Pulse Ox 97.6 F 85 18 163/82 95 06/27/16 07:45 06/27/16 07:45 06/27/16 07:45 06/27/16 07:45 06/27/16 07:45 General appearance: Present: cooperative, A&O X 3, morbidly obese, pleasant, no acute distress - Head Head exam: Present: atraumatic, normocephalic - Eye Eye exam: Present: PERRL, conjuntiva pink, sclera anicteric Pupils: Present: PERRL - Neck Neck exam general surgery: Present: supple, trachea midline. Absent: lymphadenopathy - Respiratory Respiratory exam: Present: CTAB. Absent: accessory muscle use, rales, rhonchi, wheezes - Cardiovascular Cardiovascular exam: Present: RRR, +S1, +S2. Absent: diastolic murmur, gallop, rubs, systolic murmur - GI/Abdominal GI/Abdominal exam: Present: normal bowel sounds, soft, no peritoneal signs. Absent: distended, tenderness - Extremities Exam Extremities exam: Present: warm, radial pulses palpable and symetrical. Absent : calf tenderness, cyanotic, pedal edema Additional comments: Non-pitting edema of left foot s/p Left small toe amputation Right foot in wound dressing with wound vac, minimal drainage, dressing clean and dry, wound not inspected - Neurological Exam Neurological exam: Present: alert, CN II-XII intact, oriented X3, no focal deficits. Absent: pronater drift, facial droop, speech deficit - Skin Skin exam: Present: dry, intact Internal Medicine: Result - Labs CBC & Chem 7: 06/27/16 04:37 06/27/16 04:37 Labs: Short CBC 06/27/16 Range/Units 04:37 WBC 9.7 (4.3-11.1) K/mcL Hgb 9.8 L (12.9-16.9) g/dL Hct 29.5 L (37.5-50.1) % Plt Count 269 (140-400) K/mcL Neutrophils # 5.8 (1.6-8.9) K/mcL BMP 06/27/16 04:37 Sodium 129 L Potassium 3.9 Chloride 92 L Carbon Dioxide 20 BUN 69 H Creatinine 6.67 H Glucose 332 H Calcium 8.0 L - ABG Interpretation ABG results: PT/INR, D-dimer PT 16.7 Seconds (9.4-12.1) H 06/23/16 16:13 Consult Discharge Plan - Plan Referrals: Joan Lockhart [Primary Care Provider] -
[2016-06-27] MEDS: Piperacillin/Tazobactam 3.375 GM in D5% in Water (Mini-Bag+) 100 ML IVPB SCH ×2 (09:56→20:42)
--- NOTE | 2016-06-27 10:24 | Nephrology Progress Note ---
Date of Encounter: 06/27/16 Time of Encounter: 10:00 - Assessment and Plan (1) Acute on chronic renal failure Current Visit: No Status: Acute Assessment and Plan for Acute on chronic renal failure: OZZIE most likely related to Vanco and Zosyn, superimposed on CKD 4 in setting of diabetic nephropathy. Creat worse today 6.67. Left radiocephalic in place, + bruit/thrill, mature enough for use if needed. No immediate need for HD, will continue to follow. Would prefer not to use Zosyn due to nephrotoxicity. Subjective Interval history: S/P I&D right foot, wound vac.States feeling good, no new complaints. Objective - Vital Signs Vital signs: Vital Signs Temp Pulse Resp BP Pulse Ox 06/27/16 07:45 97.6 F 85 18 163/82 95 06/27/16 03:00 92 06/26/16 23:31 99.1 F 68 18 136/56 92 06/26/16 19:20 98.6 F 79 18 140/72 94 06/26/16 14:25 98.4 F 87 16 130/67 93 06/26/16 11:19 97.5 F L 60 16 163/85 95 Intake and Output 06/26/16 06/27/16 06/27/16 23:59 07:59 15:59 Intake Total 729 / 729 471 / 471 240 / 240 Output Total 200 / 200 Balance 529 / 529 471 / 471 240 / 240 Intake: IV Fluids 329 / 329 271 / 271 Heparin 25,000 UNIT/500 329 / 329 171 / 171 ML D5W 25,000 unit In 500 ml @ 14 UNIT/KG/HR 40. 769 mls/hr IVC .[id number] [facility] Rx#:[id number] Zosyn 3.375 GM In 100 / 100 Dextrose 5% (Minibag+) 100 ML 100 ML @ 25 mls/hr IVPB Q12H [facility] Rx#: [id number] Oral 400 / 400 200 / 200 240 / 240 Output: Urine 200 / 200 Other: Meal Dinner Breakfast Percent of Meal Consumed 100% 100% Blood Glucose* 341 364 - General Appearance General appearance: Present: well-developed, well-nourished, appears started age , obese EENT: Present: mucous membranes moist Neck: Present: no JVD Respiratory: Present: clear Cardiology: Present: regular rate, regular rhythm Additional Comments: moderate pitting LE Gastrointestinal: Present: normoactive bowel sounds, no tenderness Integumentary: Present: warm and dry Neurologic: Present: alert and oriented x3 Psychiatric: Present: mood/affect appropriate, cooperative - Lab 06/27/16 04:37 06/27/16 04:37 Most recent lab results Calcium 8.0 mg/dL (8.6-10.8) L 06/27/16 04:37 - VTE Documentation of Mechanical Device: Intermittent pneumatic compression device Consult Discharge Plan - Plan Referrals: Joan Lockhart [Primary Care Provider] -
[2016-06-27] MEDS: 0.9 % Sodium Chloride 1,000 ML IVC SCH (11:32)
--- NOTE | 2016-06-27 13:27 | Podiatry Progress Note ---
Date of Encounter: 06/27/16 Time of Encounter: 11:00 - Assessment and Plan (1) Diabetic ulcer of right foot Current Visit: Yes Status: Acute Continue vac therapy- MWF changes SW to continue working with placement of patient to [facility]TC[facility] Patient had powerglide placed- will need outpatient IV antibiotic therapy- pending cultures Patient remaining admitted due to OZZIE Will order post op shoe- minimal weight bearing- if ambulating, must place all weight to heel Please call with any issues or concerns Will follow up in wound care 1 week after discharge Qualifiers: Diabetic foot ulcer location: other Diabetes mellitus type: type 2 Non- pressure ulcer stage: with fat layer exposed Qualified Code(s): E11.621 - Type 2 diabetes mellitus with foot ulcer; L97.512 - Non-pressure chronic ulcer of other part of right foot with fat layer exposed Subjective Interval history: Patient s/p #1 incision and drainage of multiple areas right foot. #2 application of wound VAC. post op day #1 per . On arrival patient resting comfortably with wound vac in place. Patient denies any pain. Patient speaking with SW at bedside about placement to select. Patient requesting home health instead but advised this was not a good idea. Wound vac intact and running without issue. Patient continues to have OZZIE, bolus running at bedside, awaiting renal us Objective - Vital Signs Vital Signs: Vital Signs Temp Pulse Resp BP Pulse Ox 06/27/16 10:52 97.5 F L 68 18 159/79 93 06/27/16 07:45 97.6 F 85 18 163/82 95 06/27/16 03:00 92 06/26/16 23:31 99.1 F 68 18 136/56 92 06/26/16 19:20 98.6 F 79 18 140/72 94 06/26/16 14:25 98.4 F 87 16 130/67 93 Intake and Output 06/26/16 06/27/16 06/27/16 23:59 07:59 15:59 Intake Total 729 / 729 471 / 471 1240 / 1240 Output Total 200 / 200 Balance 529 / 529 471 / 471 1240 / 1240 Intake: IV Fluids 329 / 329 271 / 271 1000 / 1000 0.9 % Sodium Chloride 1, 1000 / 1000 000 ML @ 3750 mls/hr IVC .Q16M [facility] Rx#:[id number] Heparin 25,000 UNIT/500 329 / 329 171 / 171 ML D5W 25,000 unit In 500 ml @ 14 UNIT/KG/HR 40. 769 mls/hr IVC .[id number] [facility] Rx#:[id number] Zosyn 3.375 GM In 100 / 100 Dextrose 5% (Minibag+) 100 ML 100 ML @ 25 mls/hr IVPB Q12H [facility] Rx#: [id number] Oral 400 / 400 200 / 200 240 / 240 Output: Urine 200 / 200 Other: Meal Dinner Breakfast Percent of Meal Consumed 100% 100% Blood Glucose* 341 364 386 - Exam Exam: General Examination: CONSTITUTIONAL: Alert, oriented, in no acute distress, non-toxic. EXTREMITIES: CFT 3 seconds all toes. Edema +1 and pedal pulses palpable. SKIN: Skin with decreased turgor, decreased subcutaneous tissue, skin thin and shiny with trophic changes associated with comorbidities as described in history.. NEUROLOGIC: Minimal sensation to light touch- loss of protective sensation No calf pain to manual compression Wound vac intact to plantar aspect of right foot, intact, mild erythema and edema remains but appears to be regressing. No drainage to canister - Lab Result Diagrams: 06/27/16 04:37 06/27/16 04:37 Labs: Abnormal lab results RBC 3.44 M/mcL (4.19-5.50) L 06/27/16 04:37 Hgb 9.8 g/dL (12.9-16.9) L 06/27/16 04:37 Hct 29.5 % (37.5-50.1) L 06/27/16 04:37 Eosinophils # 0.8 K/mcL (0.0-0.6) H 06/27/16 04:37 ESR >= 130 mm/hr (0-10) H 06/23/16 16:13 PT 16.7 Seconds (9.4-12.1) H 06/23/16 16:13 APTT 50.3 Seconds (26.0-36.0) H 06/27/16 12:54 Sodium 129 mEq/L (136-145) L 06/27/16 04:37 Chloride 92 mEq/L (98-109) L 06/27/16 04:37 BUN 69 mg/dL (8-26) H 06/27/16 04:37 Creatinine 6.67 mg/dL (0.72-1.25) H 06/27/16 04:37 Est GFR ( Amer) 10 (> 60) L 06/27/16 04:37 Est GFR (Non-Af Amer) 9 (> 60) L 06/27/16 04:37 Glucose 332 mg/dL (70-99) H 06/27/16 04:37 POC Glucose 235 (58-89) H 06/26/16 11:16 Hemoglobin A1c 13.1 % (-5.6) H 06/24/16 05:41 Calculated Osmolality 301 (280-300) H 06/27/16 04:37 Calcium 8.0 mg/dL (8.6-10.8) L 06/27/16 04:37 C-Reactive Protein 181 mg/L (Less than 5) H 06/23/16 16:13 Microbiology, Last 48 Hours 06/24/16 09:41 Blood Culture - Preliminary Peripheral Venipuncture No growth. 06/24/16 09:41 Blood Culture - Preliminary Peripheral Venipuncture No growth. - VTE Documentation of Mechanical Device: Intermittent pneumatic compression device Consult Discharge Plan - Plan Referrals: Joan Lockhart [Primary Care Provider] -
[2016-06-27] MEDS: *HR* Heparin 5,000 UNIT/ML VIAL IVP PRN (13:49)
[2016-06-27] MEDS: *HR* OxyCODONE/APAP 5/325 TABLET PO PRN (20:43)
[2016-06-28] MEDS: 0.9 % Sodium Chloride 1,000 ML IVC SCH (00:47)
[2016-06-28 00:50] LABS: Basophils # 0.1 K/mcL (0.0-0.2); Basophils % 0.7 %; Eosinophils # 0.7 K/mcL (0.0-0.6); Eosinophils % 8.2 %; Hematocrit 29.9 % (37.5-50.1); Immature Granulocytes % 1.2 % (0-4); Lymphocytes # 1.8 K/mcL (0.6-4.6); Lymphocytes % 20.8 %; Mean Corpuscular HGB Conc 33.4 g/dL (31.6-35.5); Mean Corpuscular Hemoglobin 28.4 pg (28.0-33.3); Mean Corpuscular Volume 84.9 fL (83.0-100.0); Mean Platelet Volume 10.8 fL (9.4-12.4); Monocytes # 0.7 K/mcL (0.0-1.3); Monocytes % 8.4 %; Neutrophils # 5.4 K/mcL (1.6-8.9); Nucleated Red Blood Cells 0.3 /100 WBC (0); Platelet Count 282 K/mcL (140-400); Red Blood Count 3.52 M/mcL (4.19-5.50); Red Cell Distribution Width 14.3 % (11.5-14.5); Segmented Neutrophils % 60.7 %
[2016-06-28 01:03] LABS: Calcium 7.9 mg/dL (8.6-10.8); Potassium 3.8 mEq/L (3.5-4.5)
[2016-06-28] MEDS: *HR* OxyCODONE/APAP 5/325 TABLET PO PRN ×2 (05:10→17:51)
[2016-06-28] MEDS: Heparin 25,000 UNIT/500 ML D5W 25,000 UNIT/500 ML MLS IVC SCH ×2 (05:39→21:15)
--- NOTE | 2016-06-28 08:31 | Nephrology Progress Note ---
Date of Encounter: 06/28/16 Time of Encounter: 08:15 - Assessment and Plan (1) Acute on chronic renal failure Current Visit: Yes Status: Acute Assessment and Plan for Acute on chronic renal failure: OZZIE most likely related to Vanco and Zosyn, superimposed on CKD 4 in setting of diabetic nephropathy. Creat worse today 6.92. No documented urine output for yesterday, though patients states is voiding. Urine output today 450cc. Left radiocephalic in place, + bruit/thrill, mature enough for use if needed. No immediate need for HD, would rather not initiate HD inpatient. Will continue to follow. If discharged will see in office in one week with labs. Would prefer not to use Zosyn due to nephrotoxicity. Subjective Interval history: S/P I&D right foot, wound vac. States feeling good, no new complaints. Eating and drinking. Objective - Vital Signs Vital signs: Vital Signs Temp Pulse Resp BP Pulse Ox 06/27/16 23:52 98.5 F 85 17 153/69 98 06/27/16 21:00 98 06/27/16 20:19 98.8 F 88 18 172/66 98 06/27/16 16:00 97.6 F 67 20 153/77 94 06/27/16 10:52 97.5 F L 68 18 159/79 93 Intake and Output 06/27/16 06/28/16 06/28/16 23:59 07:59 15:59 Intake Total 437.7 / 437.7 1698.3 / 1698.3 Output Total 460 / 460 Balance 437.7 / 437.7 1238.3 / 1238.3 Intake: IV Fluids 197.7 / 197.7 1598.3 / 1598.3 0.9 % Sodium Chloride 1, 1000 / 1000 000 ML @ 75 mls/hr IVC . [id number] [facility] Rx#: [id number] Heparin 25,000 UNIT/500 197.7 / 197.7 498.3 / 498.3 ML D5W 25,000 unit In 500 ml @ 14 UNIT/KG/HR 40. 769 mls/hr IVC .[id number] [facility] Rx#:[id number] Zosyn 3.375 GM In 100 / 100 Dextrose 5% (Minibag+) 100 ML 100 ML @ 25 mls/hr IVPB Q12H [facility] Rx#: [id number] Oral 240 / 240 100 / 100 Output: Urine 450 / 450 Wound Drainage Right Foot Other: Meal Dinner Percent of Meal Consumed 100% Blood Glucose* 291 296 - General Appearance General appearance: Present: well-developed, well-nourished, appears started age , obese EENT: Present: mucous membranes moist Neck: Present: no JVD Respiratory: Present: clear Cardiology: Present: edema, regular rate, regular rhythm Additional Comments: mild-1+ pitting LE Gastrointestinal: Present: normoactive bowel sounds, no tenderness Integumentary: Present: warm and dry Psychiatric: Present: mood/affect appropriate, cooperative - Lab 06/28/16 00:31 06/28/16 00:31 Most recent lab results Calcium 7.9 mg/dL (8.6-10.8) L 06/28/16 00:31 - VTE Documentation of Mechanical Device: Intermittent pneumatic compression device Consult Discharge Plan - Plan Referrals: Joan Lockhart [Primary Care Provider] -
[2016-06-28] MEDS: Insulin LISPRO 300 UNITS/3 ML VIAL SQ SCH ×7 (09:52→21:14)
[2016-06-28] MEDS: amLODIPine 5 MG TABLET PO SCH (09:53)
[2016-06-28] MEDS: Cholecalciferol (D-3) 1,000 UNIT TABLET PO SCH (09:53)
[2016-06-28] MEDS: Metoprolol 100 MG TABLET PO SCH (09:53)
[2016-06-28] MEDS: Aspirin Enteric Coated 81 MG Tablet PO SCH (09:53)
[2016-06-28] MEDS: Gabapentin 300 MG CAPSULE PO SCH (09:53)
[2016-06-28] MEDS: Piperacillin/Tazobactam 3.375 GM in D5% in Water (Mini-Bag+) 100 ML IVPB SCH ×2 (09:53→21:13)
[2016-06-28] MEDS: Isosorbide MONOnitrate (24 HR) 30 MG TAB.ER.24H PO SCH (09:53)
[2016-06-28] MEDS: *HR* Heparin 5,000 UNIT/ML VIAL IVP PRN (09:57)
[2016-06-28] MEDS: Insulin DETEMIR 100 UNIT/ML X5UNITS SQ SCH ×2 (10:08→21:13)
--- NOTE | 2016-06-28 11:51 | Internal Med Progress Note ---
Date of Encounter: 06/28/16 Time of Encounter: 11:50 - Assessment and plan (1) Acute on chronic renal failure Current Visit: Yes Status: Acute Assessment and plan: Renal function worsened today. denies any decreased urine output. Urine output recorded 450cc possible 2/2 vancomycin toxicity, he was also on lasix 80 mg bid for peripheral edema , h/o DHF and CKD. His lasix was decreased to 40mg bid 06/26 Continue to hold lasix and ACEI for now vancomycin has been stopped, zosyn is dosed renally. renal following, no need for HD at this time,, patient has a mature AVG on his left arm Renal USS-no obstruction Continue to monitor chem Adjust a/b with culture Monitor I/O (2) COPD (chronic obstructive pulmonary disease) Current Visit: Yes Status: Chronic Assessment and plan: Not in exacerbation Duonebs prn Qualifiers: COPD type: unspecified COPD Qualified Code(s): J44.9 - Chronic obstructive pulmonary disease, unspecified (3) PETE (obstructive sleep apnea) Current Visit: Yes Status: Chronic Assessment and plan: BiPAP at night (4) Hypothyroidism Current Visit: Yes Status: Chronic Assessment and plan: Continue levothyroxine Qualifiers: Hypothyroidism type: unspecified Qualified Code(s): E03.9 - Hypothyroidism , unspecified (5) Chronic kidney disease, stage IV (severe) Current Visit: Yes Status: Chronic Assessment and plan: with OZZIE on CKD Mgt as in OZZIE Renal following (6) Morbid obesity with BMI of 45.0-49.9, adult Current Visit: Yes Status: Chronic Assessment and plan: Lifestyle modification (7) Obesity hypoventilation syndrome Current Visit: Yes Status: Chronic (8) Diabetes mellitus Current Visit: Yes Status: Chronic Assessment and plan: FS uncontrolled Increase levemir and lispro Continue to monitor FS ACHS Qualifiers: Diabetes mellitus type: type 2 Diabetes mellitus complication status: with kidney complications Diabetes mellitus complication detail: with chronic kidney disease 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 transplanted heart: knik heart Associated angina: without angina Qualified Code(s): I25.10 - Atherosclerotic heart disease of knik coronary artery without angina pectoris (10) Chronic anticoagulation Current Visit: Yes Status: Chronic Assessment and plan: Continue heparin drip, monitor CBC, INR, PTT (11) Atrial fibrillation Current Visit: Yes Status: Chronic Assessment and plan: Rate controlled. continue heparin begin to bridge with coumadin Qualifiers: Atrial fibrillation type: unspecified Qualified Code(s): I48.91 - Unspecified atrial fibrillation (12) PVD (peripheral vascular disease) Current Visit: Yes Status: Chronic Assessment and plan: Chronic, stable, no intervention for now (13) Diabetic ulcer of right foot Current Visit: Yes Status: Acute Assessment and plan: Infectious disease consult appreciated. Continue IV antibiotics. Podiatry managing. POD 2 Follow fianl wound culture results Continue only Zosyn for now Qualifiers: Diabetic foot ulcer location: other Diabetes mellitus type: type 2 Non- pressure ulcer stage: with fat layer exposed Qualified Code(s): E11.621 - Type 2 diabetes mellitus with foot ulcer; L97.512 - Non-pressure chronic ulcer of other part of right foot with fat layer exposed (14) Right foot infection Current Visit: Yes Status: Acute Assessment and plan: As above - Subjective Interval history: Seen and evaluated at bedside POD 2 s/p I and D of left foot Denies new complains No difficulty breathing pain is controlled Renal function is worse with elevated creatinine and GFR, potassium and BIcarb are acceptable Received IVF yesterday patient is not oliguric Wound cultures with strep agalactiae, pending sensitivity - Constitutional Vitals: Temp Pulse Resp BP Pulse Ox 97.9 F 66 18 153/68 94 06/28/16 08:27 06/28/16 11:34 06/28/16 11:34 06/28/16 11:34 06/28/16 11:34 General appearance: Present: cooperative, A&O X 3, morbidly obese, pleasant, no acute distress - Head Head exam: Present: atraumatic, normocephalic - Eye Eye exam: Present: PERRL, conjuntiva pink, sclera anicteric Pupils: Present: PERRL - Neck Neck exam general surgery: Present: supple, trachea midline. Absent: lymphadenopathy - Respiratory Respiratory exam: Present: CTAB. Absent: accessory muscle use, rales, rhonchi, wheezes - Cardiovascular Cardiovascular exam: Present: RRR, +S1, +S2. Absent: diastolic murmur, gallop, rubs, systolic murmur - GI/Abdominal GI/Abdominal exam: Present: normal bowel sounds, soft, no peritoneal signs. Absent: distended, tenderness - Extremities Exam Extremities exam: Present: pedal edema, warm, radial pulses palpable and symetrical. Absent: calf tenderness, cyanotic Additional comments: Non-pitting edema of left foot s/p Left small toe amputation Right foot in wound dressing with wound vac, minimal drainage, dressing clean and dry, wound not inspected - Neurological Exam Neurological exam: Present: alert, CN II-XII intact, oriented X3, no focal deficits. Absent: pronater drift, facial droop, speech deficit - Skin Skin exam: Present: dry Internal Medicine: Result - Labs CBC & Chem 7: 06/28/16 00:31 06/28/16 00:31 Labs: Short CBC 06/28/16 Range/Units 00:31 WBC 8.9 (4.3-11.1) K/mcL Hgb 10.0 L (12.9-16.9) g/dL Hct 29.9 L (37.5-50.1) % Plt Count 282 (140-400) K/mcL Neutrophils # 5.4 (1.6-8.9) K/mcL BMP 06/28/16 00:31 Sodium 130 L Potassium 3.8 Chloride 94 L Carbon Dioxide 20 BUN 72 H Creatinine 6.92 H Glucose 263 H Calcium 7.9 L - ABG Interpretation ABG results: PT/INR, D-dimer PT 16.7 Seconds (9.4-12.1) H 06/23/16 16:13 - Impressions Impressions Retroperitoneum Ultrasound 06/27/16 16:00 IMPRESSION: Unremarkable ultrasound of the kidneys and urinary bladder. D/ / Bree Freire Cha, MD / Bree Freire Cha, MD Interpreting Provider: Bree Freire Cha, MD - VTE Documentation of Mechanical Device: Intermittent pneumatic compression device Consult Discharge Plan - Plan Referrals: Joan Lockhart [Primary Care Provider] -
[2016-06-28 15:57] LABS: Activated Partial Thrombo Time 115.8 Seconds (26.0-36.0)
[2016-06-28 16:02] LABS: Heparin anti-factor XA UFH 0.65 IU/mL (0.30-0.70)
[2016-06-28] MEDS: *HR* Warfarin 3 MG TABLET PO SCH (17:51)
[2016-06-28 22:34] LABS: Activated Partial Thrombo Time 272.8 Seconds (26.0-36.0)
[2016-06-28 22:40] LABS: Heparin anti-factor XA UFH 0.86 IU/mL (0.30-0.70)
--- NOTE | 2016-06-28 23:24 | Podiatry Progress Note ---
Date of Encounter: 06/28/16 Time of Encounter: 13:19 - Assessment and Plan (1) Diabetic ulcer of right foot Current Visit: Yes Status: Acute Patient will continue using the wound VAC and minimize weightbearing. Qualifiers: Diabetic foot ulcer location: other Diabetes mellitus type: type 2 Non- pressure ulcer stage: with fat layer exposed Qualified Code(s): E11.621 - Type 2 diabetes mellitus with foot ulcer; L97.512 - Non-pressure chronic ulcer of other part of right foot with fat layer exposed Subjective Principal diagnosis: Foot ulcer Interval history: Patient relates no significant changes from previous exam. Patient denies nausea, vomiting, fever, chills, shortness of breath, chest pain, or calf pain Objective - Vital Signs Vital Signs: Vital Signs Temp Pulse Resp BP Pulse Ox 06/28/16 21:37 99 06/28/16 21:09 98.0 F 81 19 140/89 99 06/28/16 15:55 97.6 F 68 20 192/83 93 06/28/16 11:34 66 18 153/68 94 06/28/16 09:50 94 06/28/16 08:27 97.9 F 69 16 148/74 94 06/27/16 23:52 98.5 F 85 17 153/69 98 Intake and Output 06/28/16 06/28/16 06/28/16 07:59 15:59 23:59 Intake Total 1698.3 / 1698.3 767 / 767 1763 / 1763 Output Total 460 / 460 850 / 850 585 / 585 Balance 1238.3 / 1238.3 -83 / -83 1178 / 1178 Intake: IV Fluids 1598.3 / 1598.3 287 / 287 463 / 463 0.9 % Sodium Chloride 1, 1000 / 1000 000 ML @ 75 mls/hr IVC . [id number] [facility] Rx#: [id number] Heparin 25,000 UNIT/500 498.3 / 498.3 187 / 187 463 / 463 ML D5W 25,000 unit In 500 ml @ 14 UNIT/KG/HR 40. 769 mls/hr IVC .[id number] [facility] Rx#:[id number] Zosyn 3.375 GM In 100 / 100 100 / 100 Dextrose 5% (Minibag+) 100 ML 100 ML @ 25 mls/hr IVPB Q12H [facility] Rx#: [id number] Oral 100 / 100 480 / 480 500 / 500 Free Water 800 / 800 Output: Urine 450 / 450 850 / 850 575 / 575 Wound Drainage Right Foot Other: Meal Lunch Dinner Percent of Meal Consumed 100% 100% Stool Size Small Stool Consistency soft formed Stool Characteristics Mucoid Stool Color Brown # Bowel Movements 1 Blood Glucose* 270 257 - Exam Exam: CONSTITUTIONAL: Alert, oriented, in no acute distress, non-toxic. EXTREMITIES: CFT 3 seconds all toes. Edema +1 and pedal pulses palpable. SKIN: Skin with decreased turgor, decreased subcutaneous tissue, skin thin and shiny with trophic changes associated with comorbidities as described in history.. NEUROLOGIC: Minimal sensation to light touch- loss of protective sensation No calf pain to manual compression Wound vac intact to plantar aspect of right foot, intact, mild erythema and edema remains but appears to be regressing. No drainage to canister consistent with previous exam - Lab Result Diagrams: 06/28/16 00:31 06/28/16 00:31 Labs: Abnormal lab results RBC 3.52 M/mcL (4.19-5.50) L 06/28/16 00:31 Hgb 10.0 g/dL (12.9-16.9) L 06/28/16 00:31 Hct 29.9 % (37.5-50.1) L 06/28/16 00:31 Eosinophils # 0.7 K/mcL (0.0-0.6) H 06/28/16 00:31 Nucleated RBCs/100 WBC 0.3 /100 WBC (0) H 06/28/16 00:31 ESR >= 130 mm/hr (0-10) H 06/23/16 16:13 PT 16.7 Seconds (9.4-12.1) H 06/23/16 16:13 APTT 272.8 Seconds (26.0-36.0) H* D 06/28/16 22:05 Heparin Anti-Xa, Unfract 0.86 IU/mL (0.30-0.70) H 06/28/16 22:05 Sodium 130 mEq/L (136-145) L 06/28/16 00:31 Chloride 94 mEq/L (98-109) L 06/28/16 00:31 BUN 72 mg/dL (8-26) H 06/28/16 00:31 Creatinine 6.92 mg/dL (0.72-1.25) H 06/28/16 00:31 Est GFR ( Amer) 10 (> 60) L 06/28/16 00:31 Est GFR (Non-Af Amer) 8 (> 60) L 06/28/16 00:31 Glucose 263 mg/dL (70-99) H 06/28/16 00:31 POC Glucose 291 (58-89) H 06/27/16 20:29 Hemoglobin A1c 13.1 % (-5.6) H 06/24/16 05:41 Calcium 7.9 mg/dL (8.6-10.8) L 06/28/16 00:31 C-Reactive Protein 181 mg/L (Less than 5) H 06/23/16 16:13 Microbiology, Last 48 Hours 06/26/16 16:44 Wound Culture - Final Right Foot Strep agalactiae - (Group B) - VTE Documentation of Mechanical Device: Intermittent pneumatic compression device Consult Discharge Plan - Plan Referrals: Joan Lockhart [Primary Care Provider] -
[2016-06-29 04:25] LABS: Basophils # 0.1 K/mcL (0.0-0.2); Basophils % 0.5 %; Eosinophils # 0.5 K/mcL (0.0-0.6); Eosinophils % 3.4 %; Hemoglobin 10.2 g/dL (12.9-16.9); Immature Granulocytes % 1.5 % (0-4); Lymphocytes % 9.5 %; Mean Corpuscular Hemoglobin 29.1 pg (28.0-33.3); Mean Corpuscular Volume 85.5 fL (83.0-100.0); Monocytes # 1.2 K/mcL (0.0-1.3); Monocytes % 7.7 %; Neutrophils # 11.8 K/mcL (1.6-8.9); Nucleated Red Blood Cells 0.5 /100 WBC (0); Platelet Count 328 K/mcL (140-400); Red Blood Count 3.51 M/mcL (4.19-5.50); Red Cell Distribution Width 14.5 % (11.5-14.5); Segmented Neutrophils % 77.4 %
[2016-06-29 04:27] LABS: Lymphocytes # 1.4 K/mcL (0.6-4.6)
[2016-06-29 04:49] LABS: Calcium 7.9 mg/dL (8.6-10.8); Potassium 4.7 mEq/L (3.5-4.5)
[2016-06-29 07:14] LABS: Activated Partial Thrombo Time 130.7 Seconds (26.0-36.0)
[2016-06-29 07:31] LABS: Heparin anti-factor XA UFH 0.52 IU/mL (0.30-0.70)
[2016-06-29] MEDS: Insulin LISPRO 300 UNITS/3 ML VIAL SQ SCH ×7 (08:11→22:40)
[2016-06-29] MEDS: Piperacillin/Tazobactam 3.375 GM in D5% in Water (Mini-Bag+) 100 ML IVPB SCH (08:12)
[2016-06-29] MEDS: Insulin DETEMIR 100 UNIT/ML X5UNITS SQ SCH ×2 (08:12→22:40)
[2016-06-29] MEDS: Cholecalciferol (D-3) 1,000 UNIT TABLET PO SCH (08:13)
[2016-06-29] MEDS: amLODIPine 5 MG TABLET PO SCH (08:13)
[2016-06-29] MEDS: Gabapentin 300 MG CAPSULE PO SCH (08:13)
[2016-06-29] MEDS: Isosorbide MONOnitrate (24 HR) 30 MG TAB.ER.24H PO SCH (08:14)
[2016-06-29] MEDS: Aspirin Enteric Coated 81 MG Tablet PO SCH (08:14)
[2016-06-29] MEDS: Metoprolol 100 MG TABLET PO SCH (08:14)
[2016-06-29] MEDS ORDERED: 0.9 % Sodium Chloride 1,000 ML IVC ONE ×2 (08:38→12:00)
--- NOTE | 2016-06-29 08:52 | Nephrology Progress Note ---
Date of Encounter: 06/29/16 Time of Encounter: 08:20 - Assessment and Plan (1) Acute on chronic renal failure Current Visit: Yes Status: Acute Assessment and Plan for Acute on chronic renal failure: OZZIE most likely related to Vanco and Zosyn, superimposed on CKD 4 in setting of diabetic nephropathy. Creat worse today 7.03. Urine output 1875cc. Left radiocephalic in place, + bruit/thrill, mature enough for use if needed. No immediate need for HD, would rather not initiate HD inpatient. Appears will have to start HD outpatient, will make arrangements on Thursday for soon start at [facility]. Hep panel ordered. Would prefer not to use Zosyn due to nephrotoxicity. Subjective Principal diagnosis: Foot ulcer Interval history: S/P I&D right foot, wound vac. States feeling good, no new complaints. Eating and drinking. Objective - Vital Signs Vital signs: Vital Signs Temp Pulse Resp BP Pulse Ox 06/29/16 06:35 98.3 F 84 16 146/78 95 06/29/16 03:52 98.0 F 88 18 141/81 96 06/29/16 00:29 98.1 F 91 21 142/87 90 06/28/16 21:37 99 06/28/16 21:09 98.0 F 81 19 140/89 99 06/28/16 15:55 97.6 F 68 20 192/83 93 06/28/16 11:34 66 18 153/68 94 06/28/16 09:50 94 Intake and Output 06/28/16 06/29/16 06/29/16 23:59 07:59 15:59 Intake Total 1763 / 1763 250 / 250 106.3 / 106.3 Output Total 585 / 585 455 / 455 Balance 1178 / 1178 -205 / -205 106.3 / 106.3 Intake: IV Fluids 463 / 463 250 / 250 106.3 / 106.3 Heparin 25,000 UNIT/500 463 / 463 150 / 150 106.3 / 106.3 ML D5W 25,000 unit In 500 ml @ 14 UNIT/KG/HR 40. 769 mls/hr IVC .[id number] [facility] Rx#:[id number] Zosyn 3.375 GM In 100 / 100 Dextrose 5% (Minibag+) 100 ML 100 ML @ 25 mls/hr IVPB Q12H [facility] Rx#: [id number] Oral 500 / 500 Free Water 800 / 800 Output: Urine 575 / 575 450 / 450 Wound Drainage Right Foot Other: Meal Dinner Percent of Meal Consumed 100% Stool Size Small Stool Consistency soft formed Stool Characteristics Mucoid Stool Color Brown # Bowel Movements 1 Blood Glucose* 257 276 - General Appearance General appearance: Present: well-developed, well-nourished, appears started age , obese EENT: Present: mucous membranes moist Neck: Present: no JVD Respiratory: Present: clear Cardiology: Present: edema, regular rate, regular rhythm Additional Comments: mild pitting LE Gastrointestinal: Present: normoactive bowel sounds, no tenderness, no guarding Integumentary: Present: warm and dry Neurologic: Present: alert and oriented x3 Psychiatric: Present: mood/affect appropriate, cooperative - Lab 06/29/16 04:15 06/29/16 04:15 Most recent lab results Calcium 7.9 mg/dL (8.6-10.8) L 06/29/16 04:15 - VTE Documentation of Mechanical Device: Intermittent pneumatic compression device Consult Discharge Plan - Plan Referrals: Joan Lockhart [Primary Care Provider] -
--- NOTE | 2016-06-29 11:10 | Internal Med Progress Note ---
Date of Encounter: 06/29/16 Time of Encounter: 11:09 - Assessment and plan (1) Acute on chronic renal failure Current Visit: Yes Status: Acute Assessment and plan: Renal function continues to be worse, mild hyperkalemia this a.m Non-oliguric, prerenal, possibly secondary to vancomycin toxicity, he was also on lasix 80 mg bid for peripheral edema , h/o DHF and CKD. His lasix was decreased to 40mg bid 06/26 Continue to hold lasix and ACEI vancomycin has been stopped, Wund culture with strep agalactaie, disscontinue Zosyn renal USS unremarkable Strict Intske and output monitoring, continue Monitor resp status Transfer to for proximity to HD, patient has a mature graft Renal input appreciated (2) COPD (chronic obstructive pulmonary disease) Current Visit: Yes Status: Chronic Assessment and plan: Not in exacerbation Duonebs prn Qualifiers: COPD type: unspecified COPD Qualified Code(s): J44.9 - Chronic obstructive pulmonary disease, unspecified (3) PETE (obstructive sleep apnea) Current Visit: Yes Status: Chronic Assessment and plan: BiPAP at night (4) Hypothyroidism Current Visit: Yes Status: Chronic Assessment and plan: Continue levothyroxine Qualifiers: Hypothyroidism type: unspecified Qualified Code(s): E03.9 - Hypothyroidism , unspecified (5) Chronic kidney disease, stage IV (severe) Current Visit: Yes Status: Chronic Assessment and plan: with OZZIE on CKD Mgt as in OZZIE Renal following (6) Morbid obesity with BMI of 45.0-49.9, adult Current Visit: Yes Status: Chronic Assessment and plan: Lifestyle modification (7) Obesity hypoventilation syndrome Current Visit: Yes Status: Chronic (8) Diabetes mellitus Current Visit: Yes Status: Chronic Assessment and plan: FS improved, compared to prior vaues Continue basal, prandial ,supplemental insulin Adjust daily prn FS ACHS Qualifiers: Diabetes mellitus type: type 2 Diabetes mellitus complication status: with kidney complications Diabetes mellitus complication detail: with chronic kidney disease Diabetes mellitus meterman insulin use: with alf use Chronic kidney disease stage: stage 4 (severe) Qualified Code(s): E11.22 - Type 2 diabetes mellitus with diabetic chronic kidney disease; N18.4 - Chronic kidney disease, stage 4 (severe); Z79.4 - terminal computer operator (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 transplanted heart: [place] heart Associated angina: without angina Qualified Code(s): I25.10 - Atherosclerotic heart disease of [place] coronary artery without angina pectoris (10) Chronic anticoagulation Current Visit: Yes Status: Chronic Assessment and plan: Patient started on Coumadin last night Check INR stat today Continue to monitor HB, INR Continue heparin drip (11) Atrial fibrillation Current Visit: Yes Status: Chronic Assessment and plan: Rate controlled. continue heparin and Coumadin Qualifiers: Atrial fibrillation type: unspecified Qualified Code(s): I48.91 - Unspecified atrial fibrillation (12) PVD (peripheral vascular disease) Current Visit: Yes Status: Chronic Assessment and plan: Chronic, stable, no intervention for now (13) Diabetic ulcer of right foot Current Visit: Yes Status: Acute Assessment and plan: Infectious disease consult appreciated. Continue IV antibiotics, changed to ceftriaxone . Podiatry managing. POD 3 Strep agalctiae in wound New leukocytosis non-specific, no fever, no new focus of infection, will monitor for now Qualifiers: Diabetic foot ulcer location: other Diabetes mellitus type: type 2 Non- pressure ulcer stage: with fat layer exposed Qualified Code(s): E11.621 - Type 2 diabetes mellitus with foot ulcer; L97.512 - Non-pressure chronic ulcer of other part of right foot with fat layer exposed (14) Right foot infection Current Visit: Yes Status: Acute Assessment and plan: As above - Subjective Interval history: Seen and evaluated at bedside POD 3 s/p I and D of left foot Denies new complains No difficulty breathing pain is controlled Renal function continues to be worse Renal following, plan to start HD Thursday Mild hyperkalemia, will give kayexalate D/C zosyn, wound culture with strep agalactiae, change to ceftriaxone Transfer to for proximity to HD, renal eval noted - Constitutional Vitals: Temp Pulse Resp BP Pulse Ox 98.3 F 84 16 146/78 95 06/29/16 06:35 06/29/16 06:35 06/29/16 06:35 06/29/16 06:35 06/29/16 06:35 General appearance: Present: cooperative, A&O X 3, morbidly obese, pleasant, no acute distress - Head Head exam: Present: atraumatic, normocephalic - Eye Eye exam: Present: PERRL, conjuntiva pink, sclera anicteric Pupils: Present: PERRL - Neck Neck exam general surgery: Present: supple, trachea midline. Absent: lymphadenopathy - Respiratory Respiratory exam: Present: CTAB. Absent: accessory muscle use, rales, rhonchi, wheezes - Cardiovascular Cardiovascular exam: Present: RRR, +S1, +S2. Absent: diastolic murmur, gallop, rubs, systolic murmur - GI/Abdominal GI/Abdominal exam: Present: normal bowel sounds, soft, no peritoneal signs. Absent: distended, tenderness - Extremities Exam Additional comments: Non-pitting edema of left foot s/p Left small toe amputation Right foot in wound dressing with wound vac, minimal drainage, dressing clean and dry Chronic venostasis changes - Neurological Exam Neurological exam: Present: alert, CN II-XII intact, oriented X3, no focal deficits. Absent: pronater drift, facial droop, speech deficit - Skin Skin exam: Present: dry, intact Internal Medicine: Result - Labs CBC & Chem 7: 06/29/16 04:15 06/29/16 04:15 Labs: Short CBC 06/29/16 Range/Units 04:15 WBC 15.2 H D (4.3-11.1) K/mcL Hgb 10.2 L (12.9-16.9) g/dL Hct 30.0 L (37.5-50.1) % Plt Count 328 (140-400) K/mcL Neutrophils # 11.8 H (1.6-8.9) K/mcL BMP 06/29/16 04:15 Sodium 129 L Potassium 4.7 H Chloride 93 L Carbon Dioxide 20 BUN 74 H Creatinine 7.03 H Glucose 275 H Calcium 7.9 L - ABG Interpretation ABG results: PT/INR, D-dimer PT 16.7 Seconds (9.4-12.1) H 06/23/16 16:13 - VTE Documentation of Mechanical Device: Intermittent pneumatic compression device Consult Discharge Plan - Plan Referrals: Joan Lockhart [Primary Care Provider] -
[2016-06-29] MEDS: Heparin 25,000 UNIT/500 ML D5W 25,000 UNIT/500 ML MLS IVC SCH (14:11)
[2016-06-29 14:48] LABS: INR 1.3; Prothrombin Time 14.1 Seconds (9.4-12.1)
[2016-06-29 14:54] LABS: Activated Partial Thrombo Time 34.1 Seconds (26.0-36.0)
[2016-06-29] MEDS: *HR* Heparin 5,000 UNIT/ML VIAL IVP PRN (15:15)
[2016-06-29] MEDS: *HR* Warfarin 3 MG TABLET PO SCH (17:57)
[2016-06-29 22:09] LABS: Activated Partial Thrombo Time 118.5 Seconds (26.0-36.0)
[2016-06-29 22:17] LABS: Heparin anti-factor XA UFH 0.48 IU/mL (0.30-0.70)
[2016-06-30 05:16] LABS: INR 1.4
[2016-06-30 05:41] LABS: Activated Partial Thrombo Time 169.3 Seconds (26.0-36.0)
[2016-06-30 05:47] LABS: Heparin anti-factor XA UFH 0.63 IU/mL (0.30-0.70)
[2016-06-30] MEDS: Aspirin Enteric Coated 81 MG Tablet PO SCH (07:56)
[2016-06-30] MEDS: Cholecalciferol (D-3) 1,000 UNIT TABLET PO SCH (07:56)
[2016-06-30] MEDS: Gabapentin 300 MG CAPSULE PO SCH (07:56)
[2016-06-30] MEDS: Insulin DETEMIR 100 UNIT/ML X5UNITS SQ SCH ×2 (07:57→23:02)
[2016-06-30] MEDS: Insulin LISPRO 300 UNITS/3 ML VIAL SQ SCH ×7 (07:57→22:59)
[2016-06-30 08:06] LABS: Basophils % 0.3 %; Eosinophils # 0.3 K/mcL (0.0-0.6); Eosinophils % 2.1 %; Hematocrit 27.7 % (37.5-50.1); Hemoglobin 9.2 g/dL (12.9-16.9); Immature Granulocytes % 1.7 % (0-4); Lymphocytes # 1.6 K/mcL (0.6-4.6); Lymphocytes % 11.9 %; Mean Corpuscular HGB Conc 33.2 g/dL (31.6-35.5); Mean Corpuscular Hemoglobin 28.1 pg (28.0-33.3); Mean Corpuscular Volume 84.7 fL (83.0-100.0); Mean Platelet Volume 9.9 fL (9.4-12.4); Monocytes # 1.2 K/mcL (0.0-1.3); Monocytes % 8.8 %; Neutrophils # 10.2 K/mcL (1.6-8.9); Nucleated Red Blood Cells 0.4 /100 WBC (0); Platelet Count 307 K/mcL (140-400); Red Blood Count 3.27 M/mcL (4.19-5.50); Red Cell Distribution Width 14.5 % (11.5-14.5); Segmented Neutrophils % 75.2 %
[2016-06-30 08:24] LABS: Potassium 4.6 mEq/L (3.5-4.5)
--- NOTE | 2016-06-30 09:08 | Nephrology Progress Note ---
Date of Encounter: 06/30/16 Time of Encounter: 08:40 - Assessment and Plan (1) Acute on chronic renal failure Current Visit: Yes Status: Acute Assessment and Plan for Acute on chronic renal failure: OZZIE most likely related to Vanco and Zosyn, superimposed on CKD 4 in setting of diabetic nephropathy. Creat worse today 7.86. Urine output 750cc. Left radiocephalic AVF in place, + bruit/thrill, mature enough for use if needed. No immediate need for HD, would rather not initiate HD inpatient. Appears will have to start HD outpatient. Arrangements made today to start at [facility] either this Thu or Thu. Hep panel ordered. Would prefer not to use Zosyn due to nephrotoxicity. Subjective Principal diagnosis: Foot ulcer Interval history: S/P I&D right foot, wound vac. States feeling good, no new complaints. Eating and drinking. Objective - Vital Signs Vital signs: Vital Signs Temp Pulse Resp BP Pulse Ox 06/30/16 07:12 98.2 F 93 20 132/56 90 06/30/16 04:51 98.1 F 96 19 134/75 96 06/30/16 00:59 98.1 F 88 19 161/65 95 06/29/16 19:25 95 06/29/16 18:04 98.7 F 91 18 157/76 91 06/29/16 13:23 97.9 F 77 16 163/82 92 Intake and Output 06/29/16 06/30/16 06/30/16 23:59 07:59 15:59 Intake Total 154 / 154 156 / 156 Output Total 925 / 925 Balance 154 / 154 -769 / -769 Intake: IV Fluids 154 / 154 156 / 156 Heparin 25,000 UNIT/500 154 / 154 156 / 156 ML D5W 25,000 unit In 500 ml @ 14 UNIT/KG/HR 40. 769 mls/hr IVC .[id number] COLLEEN Rx#:[id number] Oral 0 / 0 Output: Urine 925 / 925 Other: Stool Size Moderate Stool Consistency soft Stool Color Brown Weight 138.54 kg Blood Glucose* 213 226 Patient Weight 06/30/16 23:59 Weight 138.54 kg - General Appearance General appearance: Present: well-developed, well-nourished, appears started age , obese EENT: Present: mucous membranes moist Neck: Present: no JVD Respiratory: Present: clear Cardiology: Present: edema, irregular rhythm Gastrointestinal: Present: normoactive bowel sounds, no tenderness Integumentary: Present: warm and dry Neurologic: Present: alert and oriented x3 Psychiatric: Present: mood/affect appropriate, cooperative - Lab 06/30/16 07:54 06/30/16 07:54 Most recent lab results Calcium 8.0 mg/dL (8.6-10.8) L 06/30/16 07:54 - VTE Documentation of Mechanical Device: Intermittent pneumatic compression device Consult Discharge Plan - Plan Referrals: Joan Lockhart [Primary Care Provider] -
--- NOTE | 2016-06-30 09:44 | Internal Med Progress Note ---
Date of Encounter: 06/30/16 Time of Encounter: 09:44 - Assessment and plan (1) Acute on chronic renal failure Current Visit: Yes Status: Acute Assessment and plan: Renal function continues to be worse, mild hyperkalemia this a.m Non-oliguric, prerenal, possibly secondary to vancomycin toxicity, he was also on lasix 80 mg bid for peripheral edema , h/o DHF and CKD. His lasix was decreased to 40mg bid 06/26 Continue to hold lasix and ACEI vancomycin has been stopped, Wund culture with strep agalactaie, discontinued Zosyn, continue ceftriaxone renal USS unremarkable Strict Intske and output monitoring, continue Per renal ,for HD initiation as ou-patient (2) COPD (chronic obstructive pulmonary disease) Current Visit: Yes Status: Chronic Assessment and plan: Not in exacerbation Duonebs prn Qualifiers: COPD type: unspecified COPD Qualified Code(s): J44.9 - Chronic obstructive pulmonary disease, unspecified (3) PETE (obstructive sleep apnea) Current Visit: Yes Status: Chronic Assessment and plan: BiPAP at night (4) Hypothyroidism Current Visit: Yes Status: Chronic Assessment and plan: Continue levothyroxine Qualifiers: Hypothyroidism type: unspecified Qualified Code(s): E03.9 - Hypothyroidism , unspecified (5) Chronic kidney disease, stage IV (severe) Current Visit: Yes Status: Chronic Assessment and plan: with OZZIE on CKD Mgt as in OZZIE Renal following (6) Morbid obesity with BMI of 45.0-49.9, adult Current Visit: Yes Status: Chronic Assessment and plan: Lifestyle modification (7) Obesity hypoventilation syndrome Current Visit: Yes Status: Chronic (8) Diabetes mellitus Current Visit: Yes Status: Chronic Assessment and plan: FS improved, compared to prior vaues Continue basal, prandial ,supplemental insulin Adjust daily prn FS ACHS Qualifiers: Diabetes mellitus type: type 2 Diabetes mellitus complication status: with kidney complications Diabetes mellitus complication detail: with chronic kidney disease Diabetes mellitus long term care social worker insulin use: with detention use Chronic kidney disease stage: stage 4 (severe) Qualified Code(s): E11.22 - Type 2 diabetes mellitus with diabetic chronic kidney disease; N18.4 - Chronic kidney disease, stage 4 (severe); 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 transplanted heart: [place] heart Associated angina: without angina Qualified Code(s): I25.10 - Atherosclerotic heart disease of [place] coronary artery without angina pectoris (10) Chronic anticoagulation Current Visit: Yes Status: Chronic Assessment and plan: Increase Coumadin, titrate with INR Continue to monitor HB, INR Continue heparin drip (11) Atrial fibrillation Current Visit: Yes Status: Chronic Assessment and plan: Rate controlled. continue heparin and Coumadin Qualifiers: Atrial fibrillation type: unspecified Qualified Code(s): I48.91 - Unspecified atrial fibrillation (12) PVD (peripheral vascular disease) Current Visit: Yes Status: Chronic Assessment and plan: Chronic, stable, no intervention for now (13) Diabetic ulcer of right foot Current Visit: Yes Status: Acute Assessment and plan: Infectious disease consult appreciated. Continue IV antibiotics, changed to ceftriaxone . Podiatry managing. POD 4 Qualifiers: Diabetic foot ulcer location: other Diabetes mellitus type: type 2 Non- pressure ulcer stage: with fat layer exposed Qualified Code(s): E11.621 - Type 2 diabetes mellitus with foot ulcer; L97.512 - Non-pressure chronic ulcer of other part of right foot with fat layer exposed (14) Right foot infection Current Visit: Yes Status: Acute Assessment and plan: As above - Subjective Interval history: Seen and evaluated at bedside POD 4 s/p I and D of left foot Denies new complains No difficulty breathing pain is controlled Renal function continues to be worse Renal following, plan to start HD as out-patient Mild hyperkalemia, stable D/C zosyn, wound culture with strep agalactiae, change to ceftriaxone Per podiatry and Infectious disease, patient needs 4 weeks of antibiotics, and recommends ECF. Hospitalist team will be SIGNING OFF to Podiatry to continue this patient's care Recommend to continue to hold ACEI/Lasix till HD is initiated Continue insulin Monitor INR and continue coumadin , with aim to resume home dose at time of discharge - Constitutional Vitals: Temp Pulse Resp BP Pulse Ox 98.2 F 93 20 132/56 90 06/30/16 07:12 06/30/16 07:12 06/30/16 07:12 06/30/16 07:12 06/30/16 07:12 General appearance: Present: cooperative, A&O X 3, morbidly obese, pleasant, no acute distress - Head Head exam: Present: atraumatic, normocephalic - Eye Eye exam: Present: PERRL, conjuntiva pink, sclera anicteric Pupils: Present: PERRL - Neck Neck exam general surgery: Present: supple, trachea midline. Absent: lymphadenopathy - Respiratory Respiratory exam: Present: CTAB. Absent: accessory muscle use, rales, rhonchi, wheezes - Cardiovascular Cardiovascular exam: Present: RRR, +S1, +S2. Absent: diastolic murmur, gallop, rubs, systolic murmur - GI/Abdominal GI/Abdominal exam: Present: normal bowel sounds, soft, no peritoneal signs. Absent: distended, tenderness - Extremities Exam Additional comments: Non-pitting edema of left foot s/p Left small toe amputation Right foot in wound dressing with wound vac, minimal drainage, dressing clean and dry Chronic venostasis changes - Neurological Exam Neurological exam: Present: alert, CN II-XII intact, oriented X3, no focal deficits. Absent: pronater drift, facial droop, speech deficit - Skin Skin exam: Present: dry Internal Medicine: Result - Labs CBC & Chem 7: 06/30/16 07:54 06/30/16 07:54 Labs: Short CBC 06/30/16 Range/Units 07:54 WBC 13.6 H (4.3-11.1) K/mcL Hgb 9.2 L (12.9-16.9) g/dL Hct 27.7 L (37.5-50.1) % Plt Count 307 (140-400) K/mcL Neutrophils # 10.2 H (1.6-8.9) K/mcL BMP 06/30/16 07:54 Sodium 129 L Potassium 4.6 H Chloride 93 L Carbon Dioxide 18 L BUN 81 H Creatinine 7.86 H Glucose 253 H Calcium 8.0 L - ABG Interpretation ABG results: PT/INR, D-dimer PT 15.0 Seconds (9.4-12.1) H 06/30/16 04:40 - VTE Documentation of Mechanical Device: Intermittent pneumatic compression device Consult Discharge Plan - Plan Referrals: Daxa Burdick, FRETTED INSTRUMENT REPAIRER [Advanced Practice Nurse] - 07/14/16 10:00 am Joan Lockhart [Primary Care Provider] - 07/08/16 2:00 pm (Please follow up as schedule...)
[2016-06-30] MEDS: Heparin 25,000 UNIT/500 ML D5W 25,000 UNIT/500 ML MLS IVC SCH (10:05)
[2016-06-30] MEDS: amLODIPine 5 MG TABLET PO SCH (10:07)
[2016-06-30] MEDS: Isosorbide MONOnitrate (24 HR) 30 MG TAB.ER.24H PO SCH (10:08)
[2016-06-30] MEDS: Metoprolol 100 MG TABLET PO SCH (10:08)
[2016-06-30 10:27] LABS: Hepatitis A Antibody IgM Nonreactive (Nonreactive); Hepatitis B Core IgM Nonreactive (Nonreactive); Hepatitis B Surface Antigen Nonreactive (Nonreactive); Hepatitis C Virus Antibody Nonreactive (Nonreactive)
--- NOTE | 2016-06-30 12:52 | Infectious Disease Progress No ---
Date of Encounter: 06/30/16 Time of Encounter: 12:52 - Assessment and Plan (1) Leukocytosis Current Visit: Yes Status: Acute WBC 12.9 on admission. Normalized post-op and then went back up to 15 thousand yesterday. Improved slighly today. Likely secondary to right foot DFU infection. Blood cultures drawn 06/24/16 are negative x 2 sets. Qualifiers: Qualified Code(s): D72.829 - Elevated white blood cell count, unspecified (2) Right foot infection Current Visit: Yes Status: Acute Location: Plantar aspect of the right foot. Causative organism GBS per intra-operative culture and MSSA per wound culture obtained in the wound clinic. Secondary to poor-fitting shoes. X-ray of the right foot showed no evidence of OM or gas. ESR >130, CRP 181. Blood cultures x 2 sets are negative. Status post I & D 06/26/16. Operative report reviewed. It appears that the ulcer did penetrate to the metatarsal, but no bony destruction was noted. IV Zosyn discontinued and de-escalated to Rocephin. Agree with Rocephin, but change dose to 2 grams IV daily. Give an additional 1 gram today since the patient has already received a 1 gram dose this morning. Start 2 gram dose in the AM. Duration of treatment depends on the clinical picture. Based on the operative report, it appears that the 2nd metatarsal was exposed to infection. Recommend continuing IV antibiotic therapy. Will trend ESR and CRP and see how the patient does clinically. Get weekly CBC, BMP, ESR, and CRP every Thursday for the duration of antibiotic therapy. Consult VAT for EPIV placement. Due to the patient's CKD, we will avoid using a PICC line. If the patient requires more than 4 weeks of IV antibiotics, we will make arrangements to have the line switched out. Social work following for possible rehab placement or home health referral. Continue activity restrictions and wound care as outlined by the podiatry team. Follow up with ID 07/14/16 at 1000. (3) Diabetic ulcer of right foot Current Visit: Yes Status: Acute Location: Plantar aspect of the right foot. Follows with Dr. Mc in the Podiatry clinic. Continue wound care per Dr. Mc's recommendations. Qualifiers: Qualified Code(s): E11.621 - Type 2 diabetes mellitus with foot ulcer; L97.512 - Non-pressure chronic ulcer of other part of right foot with fat layer exposed (4) Chronic kidney disease, stage IV (severe) Current Visit: Yes Status: Chronic Serum creatinine continues to worsen. Per nephrology, likely secondary to nephrotoxic medications. Urine output appears adequate and electrolytes are normal. Nephrology consulted and following. Plans to start HD once the patient is discharged. (5) Diabetes mellitus Current Visit: Yes Status: Chronic Uncontrolled. HgbA1C 13.1 --> non-compliance vs. ineffective treatment regimen. Recommend aggressive glucose monitoring and control to promote wound healing and prevent re-infection. Qualifiers: Qualified Code(s): E11.22 - Type 2 diabetes mellitus with diabetic chronic kidney disease; N18.4 - Chronic kidney disease, stage 4 (severe); Z79.4 - [facility] (current) use of insulin (6) CAD (coronary artery disease) Current Visit: Yes Status: Chronic Qualifiers: Qualified Code(s): I25.10 - Atherosclerotic heart disease of [place] coronary artery without angina pectoris (7) COPD (chronic obstructive pulmonary disease) Current Visit: Yes Status: Chronic Qualifiers: Qualified Code(s): J44.9 - Chronic obstructive pulmonary disease, unspecified (8) Morbid obesity with BMI of 40.0-44.9, adult Current Visit: No Status: Chronic (9) PVD (peripheral vascular disease) Current Visit: Yes Status: Chronic LLE IDALIA normal. RLE IDALIA reveal mild disease. (10) Venous stasis dermatitis of both lower extremities Current Visit: No Status: Chronic (11) Atrial fibrillation Current Visit: Yes Status: Chronic Qualifiers: Qualified Code(s): I48.91 - Unspecified atrial fibrillation - Subjective Interval history: Patient seen and examined. We can attribute. No acute events noted overnight. Patient states that overall he feels okay. Denies any fevers or chills. Denies chest pain, shortness of breath, or cough. Denies nausea, vomiting, or constipation. He denies diarrhea. Denies abdominal pain and states his appetite is okay. Denies any urinary complaints. Denies pain surgical site. Denies any oral thrush or new skin lesions. Infect Dis PN-Objective Data - Labs CBC & Chem 7: 06/30/16 07:54 06/30/16 07:54 Labs: Laboratory Results - last 24 hr 06/29/16 06/29/16 06/29/16 09:30 14:30 17:52 WBC RBC Hgb Hct MCV MCH MCHC RDW Plt Count MPV Immature Gran % Seg Neutrophils % Lymphocytes % Monocytes % Eosinophils % Basophils % Neutrophils # Lymphocytes # Monocytes # Eosinophils # Basophils # Nucleated RBCs/100 WBC PT 14.1 H INR 1.3 APTT 34.1 D Heparin Anti-Xa, Unfract Sodium Potassium Chloride Carbon Dioxide BUN Creatinine Est GFR ( Amer) Est GFR (Non-Af Amer) BUN/Creatinine Ratio Glucose POC Glucose 252 H Calculated Osmolality Calcium Hepatitis A IgM Ab Nonreactive Hep Bs Antigen Nonreactive Hep B Core IgM Ab Nonreactive Hepatitis C Ab Screen Nonreactive 06/29/16 06/29/16 06/30/16 21:28 21:40 04:40 WBC RBC Hgb Hct MCV MCH MCHC RDW Plt Count MPV Immature Gran % Seg Neutrophils % Lymphocytes % Monocytes % Eosinophils % Basophils % Neutrophils # Lymphocytes # Monocytes # Eosinophils # Basophils # Nucleated RBCs/100 WBC PT 15.0 H INR 1.4 APTT 118.5 H* D 169.3 H* Heparin Anti-Xa, Unfract 0.48 0.63 Sodium Potassium Chloride Carbon Dioxide BUN Creatinine Est GFR ( Amer) Est GFR (Non-Af Amer) BUN/Creatinine Ratio Glucose POC Glucose 213 H Calculated Osmolality Calcium Hepatitis A IgM Ab Hep Bs Antigen Hep B Core IgM Ab Hepatitis C Ab Screen 06/30/16 06/30/16 06/30/16 07:07 07:54 07:54 WBC 13.6 H RBC 3.27 L Hgb 9.2 L Hct 27.7 L MCV 84.7 MCH 28.1 MCHC 33.2 RDW 14.5 Plt Count 307 MPV 9.9 Immature Gran % 1.7 Seg Neutrophils % 75.2 Lymphocytes % 11.9 Monocytes % 8.8 Eosinophils % 2.1 Basophils % 0.3 Neutrophils # 10.2 H Lymphocytes # 1.6 Monocytes # 1.2 Eosinophils # 0.3 Basophils # 0.0 Nucleated RBCs/100 WBC 0.4 H PT INR APTT Heparin Anti-Xa, Unfract Sodium 129 L Potassium 4.6 H Chloride 93 L Carbon Dioxide 18 L BUN 81 H Creatinine 7.86 H Est GFR ( Amer) 9 L Est GFR (Non-Af Amer) 7 L BUN/Creatinine Ratio 10 Glucose 253 H POC Glucose 226 H Calculated Osmolality 301 H Calcium 8.0 L Hepatitis A IgM Ab Hep Bs Antigen Hep B Core IgM Ab Hepatitis C Ab Screen 06/30/16 06/30/16 11:39 11:45 WBC RBC Hgb Hct MCV MCH MCHC RDW Plt Count MPV Immature Gran % Seg Neutrophils % Lymphocytes % Monocytes % Eosinophils % Basophils % Neutrophils # Lymphocytes # Monocytes # Eosinophils # Basophils # Nucleated RBCs/100 WBC PT INR APTT 106.3 H Heparin Anti-Xa, Unfract Sodium Potassium Chloride Carbon Dioxide BUN Creatinine Est GFR ( Amer) Est GFR (Non-Af Amer) BUN/Creatinine Ratio Glucose POC Glucose 228 H Calculated Osmolality Calcium Hepatitis A IgM Ab Hep Bs Antigen Hep B Core IgM Ab Hepatitis C Ab Screen Cultures: Cultures 06/24/16 09:41 Blood Culture - Final Peripheral Venipuncture No growth. 06/24/16 09:41 Blood Culture - Final Peripheral Venipuncture No growth. 06/26/16 16:44 Anaerobic Culture - Preliminary Right Foot At this time, no anaerobic growth is present. The culture will be finalized after 5 days of incubation. 06/26/16 16:44 Wound Culture - Final Right Foot Strep agalactiae - (Group B) Serology 06/29/16 06/27/16 Range/Units 09:30 14:12 Ur Eosinophil Smear 0 (None Seen) % Hepatitis A IgM Ab Nonreactive (Nonreactive) Hep Bs Antigen Nonreactive (Nonreactive) Hep B Core IgM Ab Nonreactive (Nonreactive) Hepatitis C Ab Screen Nonreactive (Nonreactive) Exam - Constitutional Vitals: Temp Pulse Resp BP Pulse Ox 98 F 84 20 145/84 91 06/30/16 11:45 06/30/16 12:16 06/30/16 11:45 06/30/16 12:16 06/30/16 11:45 General appearance: cooperative, morbidly obese, no acute distress - Head Head exam: Present: atraumatic, normal inspection, normocephalic - Eye Eye exam: Present: EOMI, normal appearance, PERRL Pupils: Present: normal accommodation - ENT ENT exam: Present: mucous membranes moist - Neck Neck exam: Present: normal inspection - Respiratory Respiratory exam: Present: CTAB. Absent: rales, respiratory distress, rhonchi, wheezes - Cardiovascular Cardiovascular exam: Present: RRR, +S1, +S2 - GI/Abdominal GI/Abdominal exam: Present: distended (Obese), normal bowel sounds, soft. Absent: tenderness - Extremities Exam Extremities exam: Present: pedal edema (1+ bilateral lower extremities). Absent : joint swelling, tenderness Additional comments: Right foot surgical site dressed with wound VAC. Small amount of serous sanguinous drainage noted in the canister. Wound VAC care be continuous suction at 125 mmHg. - Neurological Exam Neurological exam: Present: alert, oriented X3, no focal deficits - Psychiatric Psychiatric exam: Present: normal affect, normal mood - Skin Skin exam: Present: dry, intact, normal color, warm - VTE Documentation of Mechanical Device: Intermittent pneumatic compression device Consult Discharge Plan - Plan Referrals: Joan Lockhart [Primary Care Provider] - 07/08/16 2:00 pm (Please follow up as schedule...) Daxa Burdick S[employer] OFFENDER TREATMENT PROFESSIONAL [Advanced Practice Nurse] - 07/14/16 10:00 am - Attending Attestation I examined this patient and my medical decision-making was reviewed with the ASSOCIATE TRAINER/PA/Advanced Practice Nurse/Resident Physician. I agree with the documented findings, disposition and treatment plan as described except to the extent set forth below.
--- NOTE | 2016-06-30 15:19 | Podiatry Progress Note ---
Date of Encounter: 06/30/16 Time of Encounter: 12:00 - Assessment and Plan (1) Acute on chronic renal failure Current Visit: Yes Status: Acute Nephrology following. OZZIE most likely secondary to Vancomycin and Zosyn superimposed on CKD stage 4 in setting of diabetic nephropathy. Nephrology recommends to start HD as on outpatient, no need for immediate HD. AV fistula to LUE. Per Hospitalist Lasix and Lisinopril will be held due to hyperkalemia. (2) Morbid obesity with BMI of 50.0-59.9, adult Current Visit: No Status: Chronic (3) Diabetic ulcer of right foot Current Visit: Yes Status: Acute S/p I&D multiple areas Right foot with application of wound vac by Dr. Mc on 06/26/16. Intraop cultures: GBS, Wound Clinic culture: MSSA. ID following, switched IV antibiotics to Rocephin 2gm IV daily and recommend four week. WBC: 15.2 on 06/29/16 decreased to 13.6 today and a febrile. Wound vac changed at bedside, 25 mls of serous drainage observed to chamber, no purulent drainage, no odor, no periwound erythema, no fluctuance. Incision line with sutures intact. Small black simplace wound vac sponge applied and connected to 125 mmhg continuous suction. Recommend discharge to an ECF with wound vac and IV antibiotic recommendations per ID, will need HD every -- as on outpatient. Protective weight bearing, no weight to be applied to incision site, use heel to transfer. Will need post op shoe. F/u with Dr. Mc in wound care with in one week of discharge from hospital. 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 Qualifiers: Diabetic foot ulcer location: other Diabetes mellitus type: type 2 Non- pressure ulcer stage: with fat layer exposed Qualified Code(s): E11.621 - Type 2 diabetes mellitus with foot ulcer; L97.512 - Non-pressure chronic ulcer of other part of right foot with fat layer exposed Subjective Principal diagnosis: Foot ulcer Interval history: Patient is s/p I&D of multiple areas of right foot with application of wound vac by Dr. Mc on 06/26/16. Patient is sitting up in bed with wound vac intact to the right foot. No c/o pain currently, no c/p fever, chills or flu like symptoms. Patient states he wants to go home with home health care. Objective - Vital Signs Vital Signs: Vital Signs Temp Pulse Resp BP Pulse Ox 06/30/16 12:16 84 145/84 06/30/16 11:45 98 F 85 20 186/61 91 06/30/16 07:12 98.2 F 93 20 132/56 90 06/30/16 04:51 98.1 F 96 19 134/75 96 06/30/16 00:59 98.1 F 88 19 161/65 95 06/29/16 19:25 95 06/29/16 18:04 98.7 F 91 18 157/76 91 Intake and Output 06/29/16 06/30/16 06/30/16 23:59 07:59 15:59 Intake Total 154 / 154 156 / 156 257 / 257 Output Total 925 / 925 Balance 154 / 154 -769 / -769 257 / 257 Intake: IV Fluids 154 / 154 156 / 156 257 / 257 Heparin 25,000 UNIT/500 154 / 154 156 / 156 157 / 157 ML D5W 25,000 unit In 500 ml @ 14 UNIT/KG/HR 40. 769 mls/hr IVC .[id number] [facility] Rx#:[id number] Rocephin 1,000 MG In 100 / 100 Dextrose 5% (Minibag+) 100 ML 100 ML @ 200 mls/ hr IVPB DAILY [facility] Rx#: [id number] Oral 0 / 0 Output: Urine 925 / 925 Other: Stool Size Moderate Stool Consistency soft Stool Color Brown Weight 138.54 kg Blood Glucose* 213 226 262 Patient Weight 06/30/16 23:59 Weight 138.54 kg - Exam Exam: General appearance: alert awake oriented X 3. Calm and pleasant, no acute distress.. Vascular: Right: Pedal pulses +1/4 DP/PT , No evidence of cyanosis, pallor or rubor, Edema graded at 1+/4, Skin Temperature warm, No calf pain with manual compression. capillary refill time is immediate to digits. Postop Exam: S/P wound vac intact to left foot with small black simplace wound vac sponge connected to 125 mmhg, continuous suction. Wound vac removed, full thickness ulceration to the plantar aspect of 2 nd metatarsal. Wound measures 1.8 cm in length x 1 cm in width x 1.8 cm in depth. Tunneling at 6 O'clock measuring 2.2 cm. Sutures intact to incision line with macerated wound edges. 25 mls of serous drainage observed to wound vac chamber, no pus, no odor, no fluctuance, no periwound erythema. - Lab Result Diagrams: 06/30/16 07:54 06/30/16 07:54 Labs: Abnormal lab results WBC 13.6 K/mcL (4.3-11.1) H 06/30/16 07:54 RBC 3.27 M/mcL (4.19-5.50) L 06/30/16 07:54 Hgb 9.2 g/dL (12.9-16.9) L 06/30/16 07:54 Hct 27.7 % (37.5-50.1) L 06/30/16 07:54 Neutrophils # 10.2 K/mcL (1.6-8.9) H 06/30/16 07:54 Nucleated RBCs/100 WBC 0.4 /100 WBC (0) H 06/30/16 07:54 ESR >= 130 mm/hr (0-10) H 06/23/16 16:13 PT 15.0 Seconds (9.4-12.1) H 06/30/16 04:40 APTT 106.3 Seconds (26.0-36.0) H 06/30/16 11:45 Sodium 129 mEq/L (136-145) L 06/30/16 07:54 Potassium 4.6 mEq/L (3.5-4.5) H 06/30/16 07:54 Chloride 93 mEq/L (98-109) L 06/30/16 07:54 Carbon Dioxide 18 mEq/L (19-29) L 06/30/16 07:54 BUN 81 mg/dL (8-26) H 06/30/16 07:54 Creatinine 7.86 mg/dL (0.72-1.25) H 06/30/16 07:54 Est GFR ( Amer) 9 (> 60) L 06/30/16 07:54 Est GFR (Non-Af Amer) 7 (> 60) L 06/30/16 07:54 Glucose 253 mg/dL (70-99) H 06/30/16 07:54 POC Glucose 228 (58-89) H 06/30/16 11:39 Hemoglobin A1c 13.1 % (-5.6) H 06/24/16 05:41 Calculated Osmolality 301 (280-300) H 06/30/16 07:54 Calcium 8.0 mg/dL (8.6-10.8) L 06/30/16 07:54 C-Reactive Protein 181 mg/L (Less than 5) H 06/23/16 16:13 Microbiology, Last 48 Hours 06/24/16 09:41 Blood Culture - Final Peripheral Venipuncture No growth. 06/24/16 09:41 Blood Culture - Final Peripheral Venipuncture No growth. 06/26/16 16:44 Anaerobic Culture - Preliminary Right Foot At this time, no anaerobic growth is present. The culture will be finalized after 5 days of incubation. - VTE Documentation of Mechanical Device: Intermittent pneumatic compression device Consult Discharge Plan - Plan Referrals: Daxa Burdick CNP [Advanced Practice Nurse] - 07/14/16 10:00 am Joan Lockhart [Primary Care Provider] - 07/08/16 2:00 pm (Please follow up as schedule...)
[2016-06-30] MEDS: *HR* Warfarin 10 MG TABLET PO SCH (18:14)
[2016-07-01] MEDS: *HR* Heparin 5,000 UNIT/ML VIAL IVP PRN ×3 (01:46→18:01)
[2016-07-01] MEDS: Isosorbide MONOnitrate (24 HR) 30 MG TAB.ER.24H PO SCH (08:07)
[2016-07-01] MEDS: Aspirin Enteric Coated 81 MG Tablet PO SCH (08:07)
[2016-07-01] MEDS: Cholecalciferol (D-3) 1,000 UNIT TABLET PO SCH (08:07)
[2016-07-01] MEDS: Metoprolol 100 MG TABLET PO SCH (08:07)
[2016-07-01] MEDS: Insulin LISPRO 300 UNITS/3 ML VIAL SQ SCH ×7 (08:08→20:48)
[2016-07-01] MEDS: Insulin DETEMIR 100 UNIT/ML X5UNITS SQ SCH ×2 (08:08→20:53)
[2016-07-01] MEDS: amLODIPine 5 MG TABLET PO SCH (08:09)
[2016-07-01] MEDS: Gabapentin 300 MG CAPSULE PO SCH (08:10)
--- NOTE | 2016-07-01 08:22 | Nephrology Progress Note ---
Date of Encounter: 07/01/16 Time of Encounter: 08:20 - Assessment and Plan (1) Chronic kidney disease, stage IV (severe) Current Visit: Yes Status: Chronic The patient's renal function is slowly worsening. I believe this is related to progression of his chronic kidney disease. He is now at stage V. He is scheduled to start outpatient dialysis following hospital discharge. In the interim I am going to resume his Lasix because of his worsening volume overload. (2) Obesity hypoventilation syndrome Current Visit: Yes Status: Chronic (3) Diabetic ulcer of right foot Current Visit: Yes Status: Acute Qualifiers: Diabetic foot ulcer location: other Diabetes mellitus type: type 2 Non- pressure ulcer stage: with fat layer exposed Qualified Code(s): E11.621 - Type 2 diabetes mellitus with foot ulcer; L97.512 - Non-pressure chronic ulcer of other part of right foot with fat layer exposed Subjective Principal diagnosis: Foot ulcer Interval history: Patient is complaining of some shortness of breath and increasing fluid retention. Serum creatinine continues to slowly worsen. Urine output is satisfactory. Patient did have a low-grade temp of 100 degrees last evening. Vital signs are stable. Objective - Vital Signs Vital signs: Vital Signs Temp Pulse Resp BP Pulse Ox 07/01/16 07:10 99.4 F 93 18 96/63 93 07/01/16 04:21 100.0 F H 90 17 165/70 93 07/01/16 00:26 98.4 F 80 17 165/77 95 06/30/16 20:16 98.4 F 82 17 181/51 90 06/30/16 15:46 97.8 F 87 18 133/69 90 06/30/16 12:16 84 145/84 06/30/16 11:45 98 F 85 20 186/61 91 Intake and Output 06/30/16 07/01/16 07/01/16 23:59 07:59 15:59 Intake Total 540 / 540 468 / 468 Output Total 450 / 450 300 / 300 Balance 90 / 90 168 / 168 Intake: IV Fluids 60 / 60 228 / 228 Heparin 25,000 UNIT/500 60 / 60 228 / 228 ML D5W 25,000 unit In 500 ml @ 14 UNIT/KG/HR 40. 769 mls/hr IVC .[id number] [facility] LICENSE OF [facility] Rx#:[id number] Oral 480 / 480 240 / 240 Output: Urine 450 / 450 300 / 300 Other: Meal DIET JELLO X2 Percent of Meal Consumed 100% # Voids 1 Weight 138.8 kg Blood Glucose* 292 246 Patient Weight 07/01/16 23:59 Weight 138.8 kg - General Appearance Exam: Patient is alert and oriented. He is in no acute distress. Lung sounds. Heart irregular rate and rhythm. Abdomen is soft. His bilateral lower extremity swelling. There is a wound VAC on the right foot. There is a functioning AV fistula in the left arm. The fistula appears to be somewhat small but probably usable. - Lab 06/30/16 07:54 06/30/16 07:54 Most recent lab results Calcium 8.0 mg/dL (8.6-10.8) L 06/30/16 07:54 - VTE Documentation of Mechanical Device: Intermittent pneumatic compression device Consult Discharge Plan - Plan Referrals: Daxa Burdick CNP [Advanced Practice Nurse] - 07/14/16 10:00 am Joan Lockhart [Primary Care Provider] - 07/08/16 2:00 pm (Please follow up as schedule...)
[2016-07-01] MEDS ORDERED: Furosemide 40 MG TABLET PO SCH (08:23)
[2016-07-01 08:54] LABS: Basophils % 0.3 %; Eosinophils # 0.3 K/mcL (0.0-0.6); Eosinophils % 1.9 %; Immature Granulocytes % 1.9 % (0-4); Lymphocytes # 1.3 K/mcL (0.6-4.6); Lymphocytes % 9.7 %; Mean Corpuscular HGB Conc 33.3 g/dL (31.6-35.5); Mean Corpuscular Volume 84.1 fL (83.0-100.0); Mean Platelet Volume 10.3 fL (9.4-12.4); Monocytes # 1.1 K/mcL (0.0-1.3); Monocytes % 8.3 %; Neutrophils # 10.1 K/mcL (1.6-8.9); Nucleated Red Blood Cells 0.3 /100 WBC (0); Platelet Count 315 K/mcL (140-400); Red Blood Count 3.21 M/mcL (4.19-5.50); Red Cell Distribution Width 14.4 % (11.5-14.5); Segmented Neutrophils % 77.9 %
[2016-07-01 09:02] LABS: Calcium 8.3 mg/dL (8.6-10.8); Potassium 4.2 mEq/L (3.5-4.5)
[2016-07-01] MEDS: Furosemide 40 MG TABLET PO SCH ×2 (09:13→18:00)
[2016-07-01] MEDS: Heparin 25,000 UNIT/500 ML D5W 25,000 UNIT/500 ML MLS IVC SCH ×3 (11:39→18:32)
--- NOTE | 2016-07-01 15:11 | Podiatry Progress Note ---
Date of Encounter: 07/01/16 Time of Encounter: 12:40 - Assessment and Plan (1) Acute on chronic renal failure Current Visit: Yes Status: Acute Nephrology following. OZZIE most likely secondary to Vancomycin and Zosyn superimposed on CKD stage 4 in setting of diabetic nephropathy. Nephrology recommends to start HD as on outpatient, no need for immediate HD. AV fistula to LUE. Cobb resumed by Nephrology. (2) Morbid obesity with BMI of 50.0-59.9, adult Current Visit: No Status: Chronic (3) Diabetic ulcer of right foot Current Visit: Yes Status: Acute S/p I&D multiple areas Right foot with application of wound vac by Dr. Mc on 06/26/16. Intraop cultures: GBS, Wound Clinic culture: MSSA. ID following, switched IV antibiotics to Rocephin 2gm IV daily and recommend four week. WBC: 12.9 Wound vac changed yesterday. Small black simplace wound vac sponge applied and connected to 125 mmhg continuous suction. Recommend discharge to an ECF with wound vac and IV antibiotic recommendations per ID, will need HD every -- as on outpatient. Protective weight bearing, no weight to be applied to incision site, use heel to transfer. Will need post op shoe and ordered. F/u with Dr. Mc in wound care with in one week of discharge from hospital. [employer] dep[employer] worker coordinating discharge planning to ECF. Qualifiers: Diabetic foot ulcer location: other Diabetes mellitus type: type 2 Non- pressure ulcer stage: with fat layer exposed Qualified Code(s): E11.621 - Type 2 diabetes mellitus with foot ulcer; L97.512 - Non-pressure chronic ulcer of other part of right foot with fat layer exposed Subjective Principal diagnosis: Foot ulcer Interval history: Patient is s/p I&D of multiple areas of right foot with application of wound vac by Dr. Mc on 06/26/16. Patient is sitting up in bed with wound vac intact to the right foot eating lunch. No c/o pain currently, no c/o chills or flu like symptoms. Objective - Vital Signs Vital Signs: Vital Signs Temp Pulse Resp BP Pulse Ox 07/01/16 11:09 98.5 F 74 18 139/56 93 07/01/16 08:30 93 07/01/16 07:10 99.4 F 93 18 96/63 93 07/01/16 04:21 100.0 F H 90 17 165/70 93 07/01/16 00:26 98.4 F 80 17 165/77 95 06/30/16 20:16 98.4 F 82 17 181/51 90 06/30/16 15:46 97.8 F 87 18 133/69 90 Intake and Output 06/30/16 07/01/16 07/01/16 23:59 07:59 15:59 Intake Total 540 / 540 468 / 468 472 / 472 Output Total 450 / 450 300 / 300 Balance 90 / 90 168 / 168 472 / 472 Intake: IV Fluids 60 / 60 228 / 228 112 / 112 Heparin 25,000 UNIT/500 60 / 60 228 / 228 112 / 112 ML D5W 25,000 unit In 500 ml @ 14 UNIT/KG/HR 40. 769 mls/hr IVC .[id number] [facility] Rx#:[id number] Oral 480 / 480 240 / 240 360 / 360 Output: Urine 450 / 450 300 / 300 Other: Meal DIET JELLO X2 Breakfast Percent of Meal Consumed 100% 100% # Voids 1 Weight 138.8 kg Blood Glucose* 292 246 256 Patient Weight 07/01/16 23:59 Weight 138.8 kg - Exam Exam: General appearance: alert awake oriented X 3. Calm and pleasant, no acute distress.. Vascular: Right: Pedal pulses +1/4 DP/PT , No evidence of cyanosis, pallor or rubor, Edema graded at 1+/4, Skin Temperature warm, No calf pain with manual compression. capillary refill time is immediate to digits. Postop Exam: S/P wound vac intact to left foot with small black simplace wound vac sponge connected to 125 mmhg, continuous suction. 25 mls of serous drainage observed to wound vac chamber, no pus, no odor, no fluctuance. Light periwound erythema, no ascending cellulitis. - Lab Result Diagrams: 07/01/16 08:40 07/01/16 08:40 Labs: Abnormal lab results WBC 12.9 K/mcL (4.3-11.1) H 07/01/16 08:40 RBC 3.21 M/mcL (4.19-5.50) L 07/01/16 08:40 Hgb 9.0 g/dL (12.9-16.9) L 07/01/16 08:40 Hct 27.0 % (37.5-50.1) L 07/01/16 08:40 Neutrophils # 10.1 K/mcL (1.6-8.9) H 07/01/16 08:40 Nucleated RBCs/100 WBC 0.3 /100 WBC (0) H 07/01/16 08:40 ESR >= 130 mm/hr (0-10) H 06/23/16 16:13 PT 15.0 Seconds (9.4-12.1) H 06/30/16 04:40 APTT 38.1 Seconds (26.0-36.0) H 07/01/16 08:00 Sodium 129 mEq/L (136-145) L 07/01/16 08:40 Chloride 93 mEq/L (98-109) L 07/01/16 08:40 BUN 89 mg/dL (8-26) H 07/01/16 08:40 Creatinine 7.98 mg/dL (0.72-1.25) H 07/01/16 08:40 Est GFR ( Amer) 8 (> 60) L 07/01/16 08:40 Est GFR (Non-Af Amer) 7 (> 60) L 07/01/16 08:40 Glucose 283 mg/dL (70-99) H 07/01/16 08:40 POC Glucose 256 (58-89) H 07/01/16 11:13 Hemoglobin A1c 13.1 % (-5.6) H 06/24/16 05:41 Calculated Osmolality 306 (280-300) H 07/01/16 08:40 Calcium 8.3 mg/dL (8.6-10.8) L 07/01/16 08:40 C-Reactive Protein 181 mg/L (Less than 5) H 06/23/16 16:13 Microbiology, Last 48 Hours 06/24/16 09:41 Blood Culture - Final Peripheral Venipuncture No growth. 06/24/16 09:41 Blood Culture - Final Peripheral Venipuncture No growth. - VTE Documentation of Mechanical Device: Intermittent pneumatic compression device Consult Discharge Plan - Plan Referrals: Daxa Burdick CNP [Advanced Practice Nurse] - 07/14/16 10:00 am Joan Lockhart [Primary Care Provider] - 07/08/16 2:00 pm (Please follow up as schedule...)
--- NOTE | 2016-07-01 15:12 | Internal Med Progress Note ---
Date of Encounter: 07/01/16 Time of Encounter: 15:10 - Assessment and plan (1) Chronic kidney disease, stage V Current Visit: Yes Status: Acute Assessment and plan: 07/01/2016: I appreciate nephrology recommendations. For now will hold Lasix and ASHLEY inhibitor. He does not require hemodialysis as of now. We will monitor clinically and we will check kidney function and electrolytes daily while inpatient. The plan is to initiate hemodialysis outpatient. 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 He has POD 5 status post I&D of the right foot wound. Appreciate podiatry and ID input. Continue with monthly back. Placement pending at [facility] in [place]. Insurance approval pending. Discussed with such she will work. Discussed with the patient, he is reluctant to go to [facility]. We will monitor clinically and follow up on sedimentation rates. It is the first time I am meeting this patient. All problems are new to me today. 06/30/2016: Infectious disease consult appreciated. Continue IV antibiotics, changed to ceftriaxone . Podiatry managing. POD 4 Qualifiers: Diabetic foot ulcer location: other Diabetes mellitus type: type 2 Non- pressure ulcer stage: with fat layer exposed Qualified Code(s): E11.621 - Type 2 diabetes mellitus with foot ulcer; L97.512 - Non-pressure chronic ulcer of other part of right foot with fat layer exposed (5) Right foot infection Current Visit: Yes Status: Acute Assessment and plan: As above (6) Insulin dependent type 2 diabetes mellitus Current Visit: No Status: Chronic - Subjective Interval history: 07/01/2016: Patient reports mild dull right foot pain and tenderness with ambulation. Denies fevers and chills. Reports no shortness of breath at rest. No chest pain. - Constitutional Vitals: Temp Pulse Resp BP Pulse Ox 98.5 F 74 18 139/56 93 07/01/16 11:09 07/01/16 11:09 07/01/16 11:09 07/01/16 11:09 07/01/16 11:09 General appearance: Present: cooperative, A&O X 3, morbidly obese, pleasant, no acute distress - Eye Eye exam: Present: PERRL, conjuntiva pink, sclera anicteric Pupils: Present: PERRL - Respiratory Respiratory exam: Present: CTAB. Absent: accessory muscle use, rales, rhonchi, wheezes - Cardiovascular Cardiovascular exam: Present: RRR, +S1, +S2. Absent: diastolic murmur, gallop, rubs, systolic murmur - GI/Abdominal GI/Abdominal exam: Present: normal bowel sounds, soft, no peritoneal signs. Absent: distended, tenderness - Extremities Exam Extremities exam: Present: warm, radial pulses palpable and symetrical. Absent : calf tenderness, cyanotic, pedal edema Additional comments: Right foot with wound VAC applied and wrapped with elastic dressing - Skin Skin exam: Present: dry, intact Internal Medicine: Result - Labs CBC & Chem 7: 07/01/16 08:40 07/01/16 08:40 Labs: Short CBC 07/01/16 Range/Units 08:40 WBC 12.9 H (4.3-11.1) K/mcL Hgb 9.0 L (12.9-16.9) g/dL Hct 27.0 L (37.5-50.1) % Plt Count 315 (140-400) K/mcL Neutrophils # 10.1 H (1.6-8.9) K/mcL BMP 07/01/16 08:40 Sodium 129 L Potassium 4.2 Chloride 93 L Carbon Dioxide 20 BUN 89 H Creatinine 7.98 H Glucose 283 H Calcium 8.3 L - ABG Interpretation ABG results: PT/INR, D-dimer PT 15.0 Seconds (9.4-12.1) H 06/30/16 04:40 - VTE Documentation of Mechanical Device: Intermittent pneumatic compression device Consult Discharge Plan - Plan Referrals: Daxa Burdick CNP [Advanced Practice Nurse] - 07/14/16 10:00 am Joan Lockhart [Primary Care Provider] - 07/08/16 2:00 pm (Please follow up as schedule...)
--- NOTE | 2016-07-01 16:31 | Infectious Disease Progress No ---
Date of Encounter: 07/01/16 Time of Encounter: 16:29 - Assessment and Plan (1) Leukocytosis Current Visit: Yes Status: Acute WBC 12.9 on admission. Normalized post-op and then went back up to 15 thousand yesterday. Improved slightly today. Likely secondary to right foot DFU infection. Blood cultures drawn 06/24/16 are negative x 2 sets. Qualifiers: Leukocytosis type: unspecified Qualified Code(s): D72.829 - Elevated white blood cell count, unspecified (2) Right foot infection Current Visit: Yes Status: Acute Location: Plantar aspect of the right foot. Causative organism GBS per intra-operative culture and MSSA per wound culture obtained in the wound clinic. Secondary to poor-fitting shoes. X-ray of the right foot showed no evidence of OM or gas. ESR >130, CRP 181. Blood cultures x 2 sets are negative. Status post I & D 06/26/16. Operative report reviewed. It appears that the ulcer did penetrate to the metatarsal, but no bony destruction was noted. Continue Rocephin 2 grams IV daily. Duration of treatment depends on the clinical picture. Based on the operative report, it appears that the 2nd metatarsal was exposed to infection. Recommend continuing IV antibiotic therapy. Will trend ESR and CRP and see how the patient does clinically. Get weekly CBC, BMP, ESR, and CRP every Thursday for the duration of antibiotic therapy. Social work following for possible rehab placement or home health referral. Continue activity restrictions and wound care as outlined by the podiatry team. Follow up with ID 07/14/16 at 1000. (3) Diabetic ulcer of right foot Current Visit: Yes Status: Acute Location: Plantar aspect of the right foot. Follows with Dr. Mc in the Podiatry clinic. Continue wound care per Dr. Mc's recommendations. Qualifiers: Diabetic foot ulcer location: other Diabetes mellitus type: type 2 Non- pressure ulcer stage: with fat layer exposed Qualified Code(s): E11.621 - Type 2 diabetes mellitus with foot ulcer; L97.512 - Non-pressure chronic ulcer of other part of right foot with fat layer exposed (4) Chronic kidney disease, stage IV (severe) Current Visit: Yes Status: Chronic Serum creatinine continues to worsen. Per nephrology, likely secondary to nephrotoxic medications. Urine output appears adequate and electrolytes are normal. Nephrology consulted and following. Plans to start HD once the patient is discharged. (5) Diabetes mellitus Current Visit: Yes Status: Chronic Uncontrolled. HgbA1C 13.1 --> non-compliance vs. ineffective treatment regimen. Recommend aggressive glucose monitoring and control to promote wound healing and prevent re-infection. 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 transplanted heart: [place] heart Associated angina: without angina Qualified Code(s): I25.10 - Atherosclerotic heart disease of [place] coronary artery without angina pectoris (7) COPD (chronic obstructive pulmonary disease) Current Visit: Yes Status: Chronic Qualifiers: COPD type: unspecified COPD Qualified Code(s): J44.9 - Chronic obstructive pulmonary disease, unspecified (8) Morbid obesity with BMI of 40.0-44.9, adult Current Visit: No Status: Chronic (9) PVD (peripheral vascular disease) Current Visit: Yes Status: Chronic LLE IDALIA normal. RLE IDALIA reveal mild disease. (10) Venous stasis dermatitis of both lower extremities Current Visit: No Status: Chronic (11) Atrial fibrillation Current Visit: Yes Status: Chronic Qualifiers: Atrial fibrillation type: unspecified Qualified Code(s): I48.91 - Unspecified atrial fibrillation - Subjective Interval history: Patient seen and examined. No acute events noted overnight. Patient states that overall he feels okay. He reports decreased urinary output and feels like he is retaining fluid. Denies any fevers or chills. Denies chest pain, shortness of breath, or cough. Denies nausea, vomiting, or constipation. He denies diarrhea. Denies abdominal pain and states his appetite is okay. Denies any urinary complaints. Denies pain surgical site. Denies any oral thrush or new skin lesions. Infect Dis PN-Objective Data - Labs CBC & Chem 7: 07/01/16 08:40 07/01/16 08:40 Labs: Laboratory Results - last 24 hr 06/30/16 06/30/16 06/30/16 15:41 18:20 20:15 WBC RBC Hgb Hct MCV MCH MCHC RDW Plt Count MPV Immature Gran % Seg Neutrophils % Lymphocytes % Monocytes % Eosinophils % Basophils % Neutrophils # Lymphocytes # Monocytes # Eosinophils # Basophils # Nucleated RBCs/100 WBC APTT 87.0 H Sodium Potassium Chloride Carbon Dioxide BUN Creatinine Est GFR ( Amer) Est GFR (Non-Af Amer) BUN/Creatinine Ratio Glucose POC Glucose 311 H 292 H Calculated Osmolality Calcium 07/01/16 07/01/16 07/01/16 01:05 07:21 08:00 WBC RBC Hgb Hct MCV MCH MCHC RDW Plt Count MPV Immature Gran % Seg Neutrophils % Lymphocytes % Monocytes % Eosinophils % Basophils % Neutrophils # Lymphocytes # Monocytes # Eosinophils # Basophils # Nucleated RBCs/100 WBC APTT 34.3 D 38.1 H Sodium Potassium Chloride Carbon Dioxide BUN Creatinine Est GFR ( Amer) Est GFR (Non-Af Amer) BUN/Creatinine Ratio Glucose POC Glucose 246 H Calculated Osmolality Calcium 07/01/16 07/01/16 07/01/16 08:40 08:40 11:13 WBC 12.9 H RBC 3.21 L Hgb 9.0 L Hct 27.0 L MCV 84.1 MCH 28.0 MCHC 33.3 RDW 14.4 Plt Count 315 MPV 10.3 Immature Gran % 1.9 Seg Neutrophils % 77.9 Lymphocytes % 9.7 Monocytes % 8.3 Eosinophils % 1.9 Basophils % 0.3 Neutrophils # 10.1 H Lymphocytes # 1.3 Monocytes # 1.1 Eosinophils # 0.3 Basophils # 0.0 Nucleated RBCs/100 WBC 0.3 H APTT Sodium 129 L Potassium 4.2 Chloride 93 L Carbon Dioxide 20 BUN 89 H Creatinine 7.98 H Est GFR ( Amer) 8 L Est GFR (Non-Af Amer) 7 L BUN/Creatinine Ratio 11 Glucose 283 H POC Glucose 256 H Calculated Osmolality 306 H Calcium 8.3 L 07/01/16 15:40 WBC RBC Hgb Hct MCV MCH MCHC RDW Plt Count MPV Immature Gran % Seg Neutrophils % Lymphocytes % Monocytes % Eosinophils % Basophils % Neutrophils # Lymphocytes # Monocytes # Eosinophils # Basophils # Nucleated RBCs/100 WBC APTT Sodium Potassium Chloride Carbon Dioxide BUN Creatinine Est GFR ( Amer) Est GFR (Non-Af Amer) BUN/Creatinine Ratio Glucose POC Glucose 218 H Calculated Osmolality Calcium Cultures: Cultures 06/24/16 09:41 Blood Culture - Final Peripheral Venipuncture No growth. 06/24/16 09:41 Blood Culture - Final Peripheral Venipuncture No growth. 06/26/16 16:44 Anaerobic Culture - Preliminary Right Foot At this time, no anaerobic growth is present. The culture will be finalized after 5 days of incubation. 06/26/16 16:44 Wound Culture - Final Right Foot Strep agalactiae - (Group B) Serology 06/29/16 06/27/16 Range/Units 09:30 14:12 Ur Eosinophil Smear 0 (None Seen) % Hepatitis A IgM Ab Nonreactive (Nonreactive) Hep Bs Antigen Nonreactive (Nonreactive) Hep B Core IgM Ab Nonreactive (Nonreactive) Hepatitis C Ab Screen Nonreactive (Nonreactive) Exam - Constitutional Vitals: Temp Pulse Resp BP Pulse Ox 97.5 F L 71 18 168/70 93 07/01/16 15:19 07/01/16 15:19 07/01/16 15:19 07/01/16 15:19 07/01/16 15:19 General appearance: cooperative, morbidly obese, no acute distress - Head Head exam: Present: atraumatic, normal inspection, normocephalic - Eye Eye exam: Present: EOMI, normal appearance, PERRL Pupils: Present: normal accommodation - ENT ENT exam: Present: mucous membranes moist - Neck Neck exam: Present: normal inspection - Respiratory Respiratory exam: Present: CTAB. Absent: rales, respiratory distress, rhonchi, wheezes - Cardiovascular Cardiovascular exam: Present: irregular rhythm. Absent: tachycardia - GI/Abdominal GI/Abdominal exam: Present: distended (obese), firm, normal bowel sounds. Absent: tenderness - Extremities Exam Extremities exam: Present: pedal edema (2+ BLE). Absent: joint swelling, tenderness Additional comments: Right foot post-op dressing C/D/I with wound VAC intact. Scant drainage noted in the wound VAC canister. - Neurological Exam Neurological exam: Present: alert, oriented X3, no focal deficits - Psychiatric Psychiatric exam: Present: normal affect, normal mood - Skin Skin exam: Present: dry, intact, normal color, warm - Additional findings Additional findings: EPIV noted to the RUE with transparent dressing C/D/I. - VTE Documentation of Mechanical Device: Intermittent pneumatic compression device Consult Discharge Plan - Plan Referrals: Daxa Burdick CNP [Advanced Practice Nurse] - 07/14/16 10:00 am Joan Lockhart [Primary Care Provider] - 07/08/16 2:00 pm (Please follow up as schedule...) - Attending Attestation I examined this patient and my medical decision-making was reviewed with the GLUE WHEEL OPERATOR/PA/Advanced Practice Nurse/Resident Physician. I agree with the documented findings, disposition and treatment plan as described except to the extent set forth below.
[2016-07-01] MEDS: *HR* Warfarin 10 MG TABLET PO SCH (18:01)
[2016-07-02 05:29] LABS: Basophils % 0.3 %; Eosinophils # 0.5 K/mcL (0.0-0.6); Eosinophils % 3.8 %; Hematocrit 28.1 % (37.5-50.1); Hemoglobin 9.1 g/dL (12.9-16.9); Immature Granulocytes % 1.9 % (0-4); Lymphocytes % 8.3 %; Mean Corpuscular HGB Conc 32.4 g/dL (31.6-35.5); Mean Corpuscular Hemoglobin 27.3 pg (28.0-33.3); Mean Corpuscular Volume 84.4 fL (83.0-100.0); Mean Platelet Volume 9.9 fL (9.4-12.4); Monocytes # 0.9 K/mcL (0.0-1.3); Monocytes % 7.7 %; Neutrophils # 9.3 K/mcL (1.6-8.9); Nucleated Red Blood Cells 0.4 /100 WBC (0); Platelet Count 349 K/mcL (140-400); Red Blood Count 3.33 M/mcL (4.19-5.50); Red Cell Distribution Width 14.3 % (11.5-14.5)
[2016-07-02 05:32] LABS: INR 1.5; Prothrombin Time 16.3 Seconds (9.4-12.1)
[2016-07-02 05:35] LABS: Activated Partial Thrombo Time 68.1 Seconds (26.0-36.0)
[2016-07-02] MEDS: Heparin 25,000 UNIT/500 ML D5W 25,000 UNIT/500 ML MLS IVC SCH ×2 (05:35→19:52)
[2016-07-02 05:49] LABS: Albumin 2.1 g/dL (3.5-5.0); Albumin/Globulin Ratio 0.4 (1.1-2.2); Bilirubin,Total 0.4 mg/dL (0.2-1.2); Calcium 8.4 mg/dL (8.6-10.8); Globulin 5.3 g/dL (2.4-3.5); Potassium 4.7 mEq/L (3.5-4.5); Total Protein 7.4 g/dL (6.0-8.3)
[2016-07-02] MEDS: amLODIPine 5 MG TABLET PO SCH (08:25)
[2016-07-02] MEDS: Aspirin Enteric Coated 81 MG Tablet PO SCH (08:25)
[2016-07-02] MEDS: Isosorbide MONOnitrate (24 HR) 30 MG TAB.ER.24H PO SCH (08:25)
[2016-07-02] MEDS: Metoprolol 100 MG TABLET PO SCH (08:25)
[2016-07-02] MEDS: Furosemide 40 MG TABLET PO SCH ×2 (08:25→18:51)
[2016-07-02] MEDS: Insulin LISPRO 300 UNITS/3 ML VIAL SQ SCH ×7 (08:26→21:31)
[2016-07-02] MEDS: Cholecalciferol (D-3) 1,000 UNIT TABLET PO SCH (08:26)
[2016-07-02] MEDS ORDERED: 0.9 % Sodium Chloride 250 ML IVC PRN (08:31)
--- NOTE | 2016-07-02 08:31 | Nephrology Progress Note ---
Date of Encounter: 07/02/16 Time of Encounter: 08:29 - Assessment and Plan (1) Chronic kidney disease, stage IV (severe) Current Visit: Yes Status: Chronic The patient's azotemia continues to worsen. He has continued evidence of volume overload despite resuming his Lasix yesterday. Going to initiate dialysis while he is here in the hospital. I discussed this with the patient and he is agreeable. (2) Obesity hypoventilation syndrome Current Visit: Yes Status: Chronic (3) Diabetic ulcer of right foot Current Visit: Yes Status: Acute Qualifiers: Diabetic foot ulcer location: other Diabetes mellitus type: type 2 Non- pressure ulcer stage: with fat layer exposed Qualified Code(s): E11.621 - Type 2 diabetes mellitus with foot ulcer; L97.512 - Non-pressure chronic ulcer of other part of right foot with fat layer exposed Subjective Principal diagnosis: Foot ulcer Interval history: The patient continues to experience shortness of breath orthopnea and worsening lower extremity swelling. His azotemia continues to increase as well. Objective - Vital Signs Vital signs: Vital Signs Temp Pulse Resp BP Pulse Ox 07/02/16 07:00 98.7 F 82 14 147/62 93 07/02/16 04:15 16 168/70 96 07/02/16 03:39 98.3 F 86 17 168/70 94 07/01/16 23:41 98.4 F 95 16 174/78 88 07/01/16 20:07 97.7 F 76 17 178/75 90 07/01/16 15:19 97.5 F L 71 18 168/70 93 07/01/16 11:09 98.5 F 74 18 139/56 93 07/01/16 08:30 93 Intake and Output 07/01/16 07/02/16 07/02/16 23:59 07:59 15:59 Intake Total 626 / 626 337 / 337 Output Total 200 / 200 Balance 426 / 426 337 / 337 Intake: IV Fluids 326 / 326 337 / 337 Heparin 25,000 UNIT/500 326 / 326 337 / 337 ML D5W 25,000 unit In 500 ml @ 14 UNIT/KG/HR 38. 864 mls/hr IVC .[id number] COLLEEN Rx#:[id number] Oral 300 / 300 Output: Urine 200 / 200 Other: Meal DIET JELLO Stool Size Moderate Stool Consistency soft Stool Color Brown # Bowel Movements 1 Weight 139.4 kg Blood Glucose* 178 243 Patient Weight 07/02/16 23:59 Weight 139.4 kg - General Appearance Exam: Patient is alert and oriented. He is in no acute distress. Lung sounds. Heart irregular rate and rhythm. Abdomen is obese. He has 3-4+ lower extremity swelling. There is a functioning AV fistula in the left upper extremity. - Lab 07/02/16 05:15 07/02/16 05:15 Most recent lab results Calcium 8.4 mg/dL (8.6-10.8) L 07/02/16 05:15 - VTE Documentation of Mechanical Device: Intermittent pneumatic compression device Consult Discharge Plan - Plan Referrals: Daxa Burdick CNP [Advanced Practice Nurse] - 07/14/16 10:00 am Joan Lockhart [Primary Care Provider] - 07/08/16 2:00 pm (Please follow up as schedule...)
[2016-07-02] MEDS: Gabapentin 300 MG CAPSULE PO SCH (08:32)
[2016-07-02] MEDS: Insulin DETEMIR 100 UNIT/ML X5UNITS SQ SCH ×2 (08:36→21:30)
[2016-07-02 08:48] LABS: Phosphorous 9.5 mg/dL (2.3-4.7)
[2016-07-02] MEDS: Renal Vitamin 1 MG CAPSULE PO SCH (10:31)
--- NOTE | 2016-07-02 12:11 | Infectious Disease Progress No ---
Date of Encounter: 07/02/16 Time of Encounter: 12:09 - Assessment and Plan (1) Leukocytosis Current Visit: Yes Status: Acute WBC 12.9 on admission. Normalized post-op and then went back up to 15 thousand. Improved today back down to 11.9. Likely secondary to right foot DFU infection. Blood cultures drawn 06/24/16 are negative x 2 sets. Qualifiers: Leukocytosis type: unspecified Qualified Code(s): D72.829 - Elevated white blood cell count, unspecified (2) Right foot infection Current Visit: Yes Status: Acute Location: Plantar aspect of the right foot. Causative organism GBS per intra-operative culture and MSSA per wound culture obtained in the wound clinic. Secondary to poor-fitting shoes. X-ray of the right foot showed no evidence of OM or gas. ESR >130, CRP 181. Blood cultures x 2 sets are negative. Status post I & D 06/26/16. Operative report reviewed. It appears that the ulcer did penetrate to the metatarsal, but no bony destruction was noted. Continue Rocephin 2 grams IV daily. Duration of treatment depends on the clinical picture. Based on the operative report, it appears that the 2nd metatarsal was exposed to infection. Recommend continuing IV antibiotic therapy. Will trend ESR and CRP and see how the patient does clinically. Get weekly CBC, BMP, ESR, and CRP every Thursday for the duration of antibiotic therapy. Social work following for possible rehab placement or home health referral. Continue activity restrictions and wound care as outlined by the podiatry team. Follow up with ID 07/14/16 at 1000. If patient is discharged to [facility], they will follow and manage the patient 's antibiotic therapy and no further follow-up with ID will be needed as an outpatient. (3) Diabetic ulcer of right foot Current Visit: Yes Status: Acute Location: Plantar aspect of the right foot. Follows with Dr. Mc in the Podiatry clinic. Continue wound care per Dr. Mc's recommendations. Qualifiers: Diabetic foot ulcer location: other Diabetes mellitus type: type 2 Non- pressure ulcer stage: with fat layer exposed Qualified Code(s): E11.621 - Type 2 diabetes mellitus with foot ulcer; L97.512 - Non-pressure chronic ulcer of other part of right foot with fat layer exposed (4) Chronic kidney disease, stage IV (severe) Current Visit: Yes Status: Chronic Serum creatinine continues to worsen. Per nephrology, likely progression of CKD. Nephrology consulted and following. Plans to start HD today. (5) Diabetes mellitus Current Visit: Yes Status: Chronic Uncontrolled. HgbA1C 13.1 --> non-compliance vs. ineffective treatment regimen. Recommend aggressive glucose monitoring and control to promote wound healing and prevent re-infection. 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 transplanted heart: [place] heart Associated angina: without angina Qualified Code(s): I25.10 - Atherosclerotic heart disease of [place] coronary artery without angina pectoris (7) COPD (chronic obstructive pulmonary disease) Current Visit: Yes Status: Chronic Qualifiers: COPD type: unspecified COPD Qualified Code(s): J44.9 - Chronic obstructive pulmonary disease, unspecified (8) Morbid obesity with BMI of 40.0-44.9, adult Current Visit: No Status: Chronic (9) PVD (peripheral vascular disease) Current Visit: Yes Status: Chronic LLE IDALIA normal. RLE IDALIA reveal mild disease. (10) Venous stasis dermatitis of both lower extremities Current Visit: No Status: Chronic (11) Atrial fibrillation Current Visit: Yes Status: Chronic Qualifiers: Atrial fibrillation type: unspecified Qualified Code(s): I48.91 - Unspecified atrial fibrillation - Subjective Interval history: Patient seen and examined. No acute events noted overnight. Nephrology notes reviewed and plans to start HD today due to signs of fluid overload and unresponsiveness to diuretics. Patient states that overall he feels okay. He reports decreased urinary output and feels like he is retaining fluid. Denies any fevers or chills. Denies chest pain, shortness of breath, or cough. Denies nausea, vomiting, or constipation. He denies diarrhea. Denies abdominal pain and states his appetite is okay. Denies any urinary complaints. Denies pain surgical site. Denies any oral thrush or new skin lesions. He does report a nosebleed this morning after blowing his nose. Infect Dis PN-Objective Data - Labs CBC & Chem 7: 07/03/16 03:40 07/02/16 05:15 Labs: Laboratory Results - last 24 hr 06/29/16 06/29/16 07/01/16 07:34 11:17 15:40 WBC RBC Hgb Hct MCV MCH MCHC RDW Plt Count MPV Immature Gran % Seg Neutrophils % Lymphocytes % Monocytes % Eosinophils % Basophils % Neutrophils # Lymphocytes # Monocytes # Eosinophils # Basophils # Nucleated RBCs/100 WBC PT INR APTT Sodium Potassium Chloride Carbon Dioxide BUN Creatinine Est GFR ( Amer) Est GFR (Non-Af Amer) BUN/Creatinine Ratio Glucose POC Glucose 276 H 284 H 218 H Calculated Osmolality Calcium Phosphorus Total Bilirubin AST ALT Alkaline Phosphatase Serum Total Protein Albumin Globulin Albumin/Globulin Ratio Hep Bs Antibody 07/01/16 07/01/16 07/01/16 16:05 20:10 21:50 WBC RBC Hgb Hct MCV MCH MCHC RDW Plt Count MPV Immature Gran % Seg Neutrophils % Lymphocytes % Monocytes % Eosinophils % Basophils % Neutrophils # Lymphocytes # Monocytes # Eosinophils # Basophils # Nucleated RBCs/100 WBC PT INR APTT 38.4 H 87.5 H D Sodium Potassium Chloride Carbon Dioxide BUN Creatinine Est GFR ( Amer) Est GFR (Non-Af Amer) BUN/Creatinine Ratio Glucose POC Glucose 178 H Calculated Osmolality Calcium Phosphorus Total Bilirubin AST ALT Alkaline Phosphatase Serum Total Protein Albumin Globulin Albumin/Globulin Ratio Hep Bs Antibody 07/02/16 07/02/16 07/02/16 05:15 05:15 05:15 WBC 11.9 H RBC 3.33 L Hgb 9.1 L Hct 28.1 L MCV 84.4 MCH 27.3 L MCHC 32.4 RDW 14.3 Plt Count 349 MPV 9.9 Immature Gran % 1.9 Seg Neutrophils % 78.0 Lymphocytes % 8.3 Monocytes % 7.7 Eosinophils % 3.8 Basophils % 0.3 Neutrophils # 9.3 H Lymphocytes # 1.0 Monocytes # 0.9 Eosinophils # 0.5 Basophils # 0.0 Nucleated RBCs/100 WBC 0.4 H PT 16.3 H INR 1.5 APTT 68.1 H Sodium 131 L Potassium 4.7 H Chloride 95 L Carbon Dioxide 21 BUN 99 H Creatinine 8.47 H Est GFR ( Amer) 8 L Est GFR (Non-Af Amer) 7 L BUN/Creatinine Ratio 12 Glucose 197 H POC Glucose Calculated Osmolality 308 H Calcium 8.4 L Phosphorus 9.5 H Total Bilirubin 0.4 AST 34 ALT 30 Alkaline Phosphatase 107 Serum Total Protein 7.4 Albumin 2.1 L Globulin 5.3 H Albumin/Globulin Ratio 0.4 L Hep Bs Antibody 07/02/16 08:54 WBC RBC Hgb Hct MCV MCH MCHC RDW Plt Count MPV Immature Gran % Seg Neutrophils % Lymphocytes % Monocytes % Eosinophils % Basophils % Neutrophils # Lymphocytes # Monocytes # Eosinophils # Basophils # Nucleated RBCs/100 WBC PT INR APTT Sodium Potassium Chloride Carbon Dioxide BUN Creatinine Est GFR ( Amer) Est GFR (Non-Af Amer) BUN/Creatinine Ratio Glucose POC Glucose Calculated Osmolality Calcium Phosphorus Total Bilirubin AST ALT Alkaline Phosphatase Serum Total Protein Albumin Globulin Albumin/Globulin Ratio Hep Bs Antibody 0.16 Cultures: Cultures 06/26/16 16:44 Anaerobic Culture - Final Right Foot No anaerobes were recovered. 06/24/16 09:41 Blood Culture - Final Peripheral Venipuncture No growth. 06/24/16 09:41 Blood Culture - Final Peripheral Venipuncture No growth. 06/26/16 16:44 Wound Culture - Final Right Foot Strep agalactiae - (Group B) Serology 07/02/16 06/29/16 06/27/16 Range/Units 08:54 09:30 14:12 Ur Eosinophil Smear 0 (None Seen) % Hepatitis A IgM Ab Nonreactive (Nonreactive) Hep Bs Antigen Nonreactive (Nonreactive) Hep Bs Antibody 0.16 mIU/mL Hep B Core IgM Ab Nonreactive (Nonreactive) Hepatitis C Ab Screen Nonreactive (Nonreactive) Exam - Constitutional Vitals: Temp Pulse Resp BP Pulse Ox 97.2 F L 66 16 125/57 92 07/02/16 11:21 07/02/16 11:21 07/02/16 11:21 07/02/16 11:21 07/02/16 11:21 General appearance: cooperative, morbidly obese, no acute distress - Head Head exam: Present: atraumatic, normal inspection, normocephalic - Eye Eye exam: Present: EOMI, normal appearance, PERRL Pupils: Present: normal accommodation - ENT ENT exam: Present: mucous membranes moist - Neck Neck exam: Present: normal inspection - Respiratory Respiratory exam: Present: CTAB. Absent: rales, respiratory distress, rhonchi, wheezes - Cardiovascular Cardiovascular exam: Present: irregular rhythm. Absent: tachycardia - GI/Abdominal GI/Abdominal exam: Present: distended (obese), normal bowel sounds, soft. Absent: tenderness - Extremities Exam Extremities exam: Present: pedal edema (2+ BLE). Absent: joint swelling, tenderness Additional comments: Right foot dressing C/D/I with wound VAC noted. Wound VAC with continuous suction at 125mmHg. Scant amount of dark brown serous drainage noted in the wound VAC canister. - Neurological Exam Neurological exam: Present: alert, oriented X3, no focal deficits - Psychiatric Psychiatric exam: Present: normal affect, normal mood - Skin Skin exam: Present: dry, intact, normal color, warm - Additional findings Additional findings: EPIV noted to the RUE with transparent dressing C/D/I. - VTE Documentation of Mechanical Device: Intermittent pneumatic compression device Consult Discharge Plan - Plan Referrals: Daxa Burdcik CNP [Advanced Practice Nurse] - 07/14/16 10:00 am Joan Lockhart [Primary Care Provider] - 07/08/16 2:00 pm (Please follow up as schedule...) Prescriptions: Ceftriaxone Sodium [Ceftriaxone] 2 gm IV Q24H #24 vial.port - Attending Attestation I examined this patient and my medical decision-making was reviewed with the [facility] SET UP PERSON/PA/Advanced Practice Nurse/Resident Physician. I agree with the documented findings, disposition and treatment plan as described except to the extent set forth below.
--- NOTE | 2016-07-02 12:55 | Podiatry Progress Note ---
Date of Encounter: 07/02/16 Time of Encounter: 11:40 - Assessment and Plan (1) Acute on chronic renal failure Current Visit: Yes Status: Acute Nephrology following. Azotemia worsening. HD started today, according to patient they had to stop due to fistula infiltrating. (2) Morbid obesity with BMI of 50.0-59.9, adult Current Visit: No Status: Chronic (3) Diabetic ulcer of right foot Current Visit: Yes Status: Acute S/p I&D multiple areas Right foot with application of wound vac by Dr. Mc on 06/26/16. Intraop cultures: GBS, Wound Clinic culture: MSSA. ID following, switched IV antibiotics to Rocephin 2gm IV daily and recommend four week. WBC: 11.9 Wound vac changed today. Small white foam applied with black simplace wound vac sponge, connected to 125 mmhg continuous suction. Recommend discharge to an ECF with wound vac and IV antibiotic recommendations per ID, will need HD every -- as on outpatient. Protective weight bearing, no weight to be applied to incision site, use heel to transfer. Will need post op shoe and ordered. F/u with Dr. Mc in wound care with in one week of discharge from hospital. powder worker Joann coordinating discharge planning to [facility]. Patient has been approved to go to [facility]. At bedside with psychiatric social worker Joann discussing ECF approval, patient is very reluctant about going to [place]. Discussed the importance of going to [facility] and how this facility will assist in meeting the discharge needs to allow for a full recovery. Patient verbalized understanding. Plan to discharge patient once medically stable. Qualifiers: Diabetic foot ulcer location: other Diabetes mellitus type: type 2 Non- pressure ulcer stage: with fat layer exposed Qualified Code(s): E11.621 - Type 2 diabetes mellitus with foot ulcer; L97.512 - Non-pressure chronic ulcer of other part of right foot with fat layer exposed Subjective Principal diagnosis: Foot ulcer Interval history: Patient is s/p I&D of multiple areas of right foot with application of wound vac by Dr. Mc on 06/26/16. Patient is sitting up in bed with wound vac intact to the right foot eating lunch. Friend at bedside. Patient had a bloody nose this morning. Patient states he was sent back from dialysis due to his fistula infiltrating. Patient states he is feeling more SOB today. No c/o pain currently, no cp, no c/o chills or flu like symptoms. Objective - Vital Signs Vital Signs: Vital Signs Temp Pulse Resp BP Pulse Ox 07/02/16 11:21 97.2 F L 66 16 125/57 92 07/02/16 09:03 93 07/02/16 07:00 98.7 F 82 14 147/62 93 07/02/16 04:15 16 168/70 96 07/02/16 03:39 98.3 F 86 17 168/70 94 07/01/16 23:41 98.4 F 95 16 174/78 88 07/01/16 20:07 97.7 F 76 17 178/75 90 07/01/16 15:19 97.5 F L 71 18 168/70 93 Intake and Output 07/01/16 07/02/16 07/02/16 23:59 07:59 15:59 Intake Total 626 / 626 337 / 337 120 / 120 Output Total 200 / 200 300 / 300 Balance 426 / 426 337 / 337 -180 / -180 Intake: IV Fluids 326 / 326 337 / 337 Heparin 25,000 UNIT/500 326 / 326 337 / 337 ML D5W 25,000 unit In 500 ml @ 14 UNIT/KG/HR 38. 864 mls/hr IVC .[id number] [facility] Rx#:[id number] Oral 300 / 300 120 / 120 Output: Urine 200 / 200 300 / 300 Other: Meal DIET JELLO Breakfast Percent of Meal Consumed 100% Stool Size Moderate Moderate Stool Consistency soft formed Stool Color Brown Brown # Voids 1 # Bowel Movements 1 1 Weight 139.4 kg Blood Glucose* 178 243 283 Patient Weight 07/02/16 23:59 Weight 139.4 kg - Exam Exam: General appearance: alert awake oriented X 3. Calm and pleasant, no acute distress.. Vascular: Right: Pedal pulses +1/4 DP/PT , No evidence of cyanosis, pallor or rubor, Edema graded at 2+/4, Skin Temperature warm, No calf pain with manual compression. capillary refill time is immediate to digits. Neurologic: sensation intact to right foot with light touch. Postop Exam: S/P wound vac intact to left foot with small white sponge and small black simplace wound vac sponge connected to 125 mmhg, continuous suction. 25 mls of serous drainage observed to wound vac chamber, no pus, no odor, no fluctuance. Light periwound erythema, no ascending cellulitis. Sutures intact with macerated wound edges. - Lab Result Diagrams: 07/02/16 05:15 07/02/16 05:15 Labs: Abnormal lab results WBC 11.9 K/mcL (4.3-11.1) H 07/02/16 05:15 RBC 3.33 M/mcL (4.19-5.50) L 07/02/16 05:15 Hgb 9.1 g/dL (12.9-16.9) L 07/02/16 05:15 Hct 28.1 % (37.5-50.1) L 07/02/16 05:15 MCH 27.3 pg (28.0-33.3) L 07/02/16 05:15 Neutrophils # 9.3 K/mcL (1.6-8.9) H 07/02/16 05:15 Nucleated RBCs/100 WBC 0.4 /100 WBC (0) H 07/02/16 05:15 ESR >= 130 mm/hr (0-10) H 06/23/16 16:13 PT 16.3 Seconds (9.4-12.1) H 07/02/16 05:15 APTT 68.1 Seconds (26.0-36.0) H 07/02/16 05:15 Sodium 131 mEq/L (136-145) L 07/02/16 05:15 Potassium 4.7 mEq/L (3.5-4.5) H 07/02/16 05:15 Chloride 95 mEq/L (98-109) L 07/02/16 05:15 BUN 99 mg/dL (8-26) H 07/02/16 05:15 Creatinine 8.47 mg/dL (0.72-1.25) H 07/02/16 05:15 Est GFR ( Amer) 8 (> 60) L 07/02/16 05:15 Est GFR (Non-Af Amer) 7 (> 60) L 07/02/16 05:15 Glucose 197 mg/dL (70-99) H 07/02/16 05:15 POC Glucose 283 (58-89) H 07/02/16 11:23 Hemoglobin A1c 13.1 % (-5.6) H 06/24/16 05:41 Calculated Osmolality 308 (280-300) H 07/02/16 05:15 Calcium 8.4 mg/dL (8.6-10.8) L 07/02/16 05:15 Phosphorus 9.5 mg/dL (2.3-4.7) H 07/02/16 05:15 C-Reactive Protein 181 mg/L (Less than 5) H 06/23/16 16:13 Albumin 2.1 g/dL (3.5-5.0) L 07/02/16 05:15 Globulin 5.3 g/dL (2.4-3.5) H 07/02/16 05:15 Albumin/Globulin Ratio 0.4 (1.1-2.2) L 07/02/16 05:15 Microbiology, Last 48 Hours 06/26/16 16:44 Anaerobic Culture - Final Right Foot No anaerobes were recovered. - VTE Documentation of Mechanical Device: Intermittent pneumatic compression device Consult Discharge Plan - Plan Referrals: Daxa Burdick CNP [Advanced Practice Nurse] - 07/14/16 10:00 am Joan Lockhart [Primary Care Provider] - 07/08/16 2:00 pm (Please follow up as schedule...)
[2016-07-02] MEDS ORDERED: 0.9 % Sodium Chloride 2,000 ML ONE (16:27)
[2016-07-02] MEDS: *HR* Warfarin 10 MG TABLET PO SCH (18:51)
--- NOTE | 2016-07-02 19:20 | Internal Med Progress Note ---
Date of Encounter: 07/02/16 Time of Encounter: 14:00 - Assessment and plan (1) Chronic kidney disease, stage V Current Visit: Yes Status: Acute Assessment and plan: 07/02/2016: Patient was started on hemodialysis today however cannot complete the session because his and his AV fistula infiltrated. Follow up with nephrology regarding the next session of hemodialysis. 07/01/2016: I appreciate nephrology recommendations. For now will hold Lasix and ASHLEY inhibitor. He does not require hemodialysis as of now. We will monitor clinically and we will check kidney function and electrolytes daily while inpatient. The plan is to initiate hemodialysis outpatient. (2) Morbid obesity with BMI of 45.0-49.9, adult Current Visit: Yes Status: Chronic Assessment and plan: Outpatient weight loss regimen and Lifestyle modification (3) Diabetes mellitus Current Visit: Yes Status: Chronic Assessment and plan: FS improved, compared to prior vaues Continue basal, prandial ,supplemental insulin Adjust daily prn FS ACHS Qualifiers: Diabetes mellitus type: type 2 Diabetes mellitus complication status: with kidney complications Diabetes mellitus complication detail: with chronic kidney disease Diabetes mellitus group home insulin use: with intermediate project manager use Chronic kidney disease stage: stage 4 (severe) Qualified Code(s): E11.22 - Type 2 diabetes mellitus with diabetic chronic kidney disease; N18.4 - Chronic kidney disease, stage 4 (severe); 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 He has POD 5 status post I&D of the right foot wound. Appreciate podiatry and ID input. Continue with monthly back. Placement pending at [facility] in [place]. Insurance approval pending. Discussed with such she will work. Discussed with the patient, he is reluctant to go to [facility]. We will monitor clinically and follow up on sedimentation rates. It is the first time I am meeting this patient. All problems are new to me today. 06/30/2016: Infectious disease consult appreciated. Continue IV antibiotics, changed to ceftriaxone . Podiatry managing. POD 4 Qualifiers: Diabetic foot ulcer location: other Diabetes mellitus type: type 2 Non- pressure ulcer stage: with fat layer exposed Qualified Code(s): E11.621 - Type 2 diabetes mellitus with foot ulcer; L97.512 - Non-pressure chronic ulcer of other part of right foot with fat layer exposed (5) Right foot infection Current Visit: Yes Status: Acute Assessment and plan: As above (6) Insulin dependent type 2 diabetes mellitus Current Visit: No Status: Chronic (7) Chronic anticoagulation Current Visit: Yes Status: Chronic Assessment and plan: We will continue with heparin drip. Continue with Coumadin. Monitor for bleeding closely. He is at high risk for bleeding complications as well as further morbidity and mortality due to IV heparin which requires close titration for activity. (8) Atrial fibrillation Current Visit: Yes Status: Chronic Assessment and plan: Rate controlled. continue heparin and Coumadin Qualifiers: Atrial fibrillation type: unspecified Qualified Code(s): I48.91 - Unspecified atrial fibrillation (9) Nosebleed Current Visit: Yes Status: Acute Assessment and plan: Controlled with nasal clip. We will monitor for further bleeding. Avoid administration of supplemental oxygen by nasal cannula as this could trigger further bleeding. - Subjective Interval history: 07/02/2016: The patient had perfuse nosebleed, that started earlier today currently being controlled with a nostril clip. He reports no other bleeding, he denies associated chest pain and lightheadedness. 07/01/2016: Patient reports mild dull right foot pain and tenderness with ambulation. Denies fevers and chills. Reports no shortness of breath at rest. No chest pain. - Constitutional Vitals: Temp Pulse Resp BP Pulse Ox 97.5 F L 69 15 148/63 93 07/02/16 15:54 07/02/16 15:54 07/02/16 15:54 07/02/16 15:54 07/02/16 15:54 General appearance: Present: cooperative, A&O X 3, morbidly obese, pleasant, no acute distress - Eye Eye exam: Present: PERRL, conjuntiva pink, sclera anicteric Pupils: Present: PERRL - Respiratory Respiratory exam: Present: CTAB. Absent: accessory muscle use, rales, rhonchi, wheezes - Cardiovascular Cardiovascular exam: Present: RRR, +S1, +S2. Absent: diastolic murmur, gallop, rubs, systolic murmur - GI/Abdominal GI/Abdominal exam: Present: normal bowel sounds, soft, no peritoneal signs. Absent: distended, tenderness - Extremities Exam Extremities exam: Present: warm, radial pulses palpable and symetrical. Absent : calf tenderness, cyanotic, pedal edema Additional comments: Left forearm AV fistula with palpable thrill - Neurological Exam Neurological exam: Present: CN II-XII intact, oriented X3, no focal deficits. Absent: pronater drift, facial droop, speech deficit - Skin Skin exam: Present: dry, intact Internal Medicine: Result - Labs CBC & Chem 7: 07/02/16 05:15 07/02/16 05:15 Labs: Short CBC 07/02/16 Range/Units 05:15 WBC 11.9 H (4.3-11.1) K/mcL Hgb 9.1 L (12.9-16.9) g/dL Hct 28.1 L (37.5-50.1) % Plt Count 349 (140-400) K/mcL Neutrophils # 9.3 H (1.6-8.9) K/mcL BMP 07/02/16 05:15 Sodium 131 L Potassium 4.7 H Chloride 95 L Carbon Dioxide 21 BUN 99 H Creatinine 8.47 H Glucose 197 H Calcium 8.4 L Liver Function 07/02/16 Range/Units 05:15 Total Bilirubin 0.4 (0.2-1.2) mg/dL AST 34 (5-34) Units/L ALT 30 (0-55) Units/L Alkaline Phosphatase 107 (38-126) Units/L Albumin 2.1 L (3.5-5.0) g/dL - ABG Interpretation ABG results: PT/INR, D-dimer PT 16.3 Seconds (9.4-12.1) H 07/02/16 05:15 - VTE Documentation of Mechanical Device: Intermittent pneumatic compression device Consult Discharge Plan - Plan Referrals: Daxa Burdick CNP [Advanced Practice Nurse] - 07/14/16 10:00 am Joan Lockhart [Primary Care Provider] - 07/08/16 2:00 pm (Please follow up as schedule...)
[2016-07-03 03:52] LABS: Basophils % 0.4 %; Eosinophils # 0.6 K/mcL (0.0-0.6); Eosinophils % 7.3 %; Hematocrit 25.7 % (37.5-50.1); Hemoglobin 8.7 g/dL (12.9-16.9); Immature Granulocytes % 2.2 % (0-4); Lymphocytes # 1.3 K/mcL (0.6-4.6); Lymphocytes % 15.1 %; Mean Corpuscular HGB Conc 33.9 g/dL (31.6-35.5); Mean Corpuscular Hemoglobin 28.2 pg (28.0-33.3); Mean Corpuscular Volume 83.4 fL (83.0-100.0); Mean Platelet Volume 10.4 fL (9.4-12.4); Monocytes # 0.6 K/mcL (0.0-1.3); Monocytes % 6.9 %; Neutrophils # 5.8 K/mcL (1.6-8.9); Nucleated Red Blood Cells 0.4 /100 WBC (0); Platelet Count 354 K/mcL (140-400); Red Blood Count 3.08 M/mcL (4.19-5.50); Red Cell Distribution Width 14.6 % (11.5-14.5); Segmented Neutrophils % 68.1 %
[2016-07-03 04:05] LABS: INR 1.6; Prothrombin Time 17.6 Seconds (9.4-12.1)
[2016-07-03] MEDS: Heparin 25,000 UNIT/500 ML D5W 25,000 UNIT/500 ML MLS IVC SCH ×2 (04:22→15:27)
[2016-07-03] MEDS: Isosorbide MONOnitrate (24 HR) 30 MG TAB.ER.24H PO SCH (08:03)
[2016-07-03] MEDS: Aspirin Enteric Coated 81 MG Tablet PO SCH (08:03)
[2016-07-03] MEDS: Gabapentin 300 MG CAPSULE PO SCH (08:03)
[2016-07-03] MEDS: Furosemide 40 MG TABLET PO SCH ×2 (08:03→18:00)
[2016-07-03] MEDS: Metoprolol 100 MG TABLET PO SCH (08:03)
[2016-07-03] MEDS: Cholecalciferol (D-3) 1,000 UNIT TABLET PO SCH (08:03)
[2016-07-03] MEDS: Insulin DETEMIR 100 UNIT/ML X5UNITS SQ SCH (08:04)
[2016-07-03] MEDS: amLODIPine 5 MG TABLET PO SCH (08:04)
[2016-07-03] MEDS: Renal Vitamin 1 MG CAPSULE PO SCH (08:04)
--- NOTE | 2016-07-03 08:22 | Nephrology Progress Note ---
Date of Encounter: 07/03/16 Time of Encounter: 08:20 - Assessment and Plan (1) Chronic kidney disease, stage IV (severe) Current Visit: Yes Status: Chronic We will attempt dialysis again today. I spoke with the dialysis nurse. We will proceed with the same orders as written for yesterday's treatment. (2) Obesity hypoventilation syndrome Current Visit: Yes Status: Chronic (3) Diabetic ulcer of right foot Current Visit: Yes Status: Acute Qualifiers: Diabetic foot ulcer location: other Diabetes mellitus type: type 2 Non- pressure ulcer stage: with fat layer exposed Qualified Code(s): E11.621 - Type 2 diabetes mellitus with foot ulcer; L97.512 - Non-pressure chronic ulcer of other part of right foot with fat layer exposed Subjective Principal diagnosis: Foot ulcer Interval history: The patient is clinically about the same. He was not able to get his dialysis yesterday. His AV fistula apparently infiltrated early into the treatment. I am going to try and get him dialyzed again today. Because of his azotemia and his volume overload I think this is necessary. Hopefully we can avoid having to place a tunneled dialysis catheter. Objective - Vital Signs Vital signs: Vital Signs Temp Pulse Resp BP Pulse Ox 07/03/16 04:28 97.6 F 72 16 160/76 91 07/03/16 00:22 98.1 F 74 15 155/75 92 07/02/16 21:31 98.2 F 76 18 168/78 90 07/02/16 15:54 97.5 F L 69 15 148/63 93 07/02/16 11:21 97.2 F L 66 16 125/57 92 07/02/16 10:15 98.7 F 16 184/81 07/02/16 10:10 98.7 F 16 184/81 07/02/16 09:03 93 Intake and Output 07/02/16 07/03/16 07/03/16 23:59 07:59 15:59 Intake Total 860 / 860 500 / 500 Output Total 500 / 500 Balance 860 / 860 0 / 0 Intake: IV Fluids 500 / 500 500 / 500 Heparin 25,000 UNIT/500 500 / 500 500 / 500 ML D5W 25,000 unit In 500 ml @ 14 UNIT/KG/HR 38. 864 mls/hr IVC .[id number] [facility] Rx#:[id number] Oral 360 / 360 Output: Urine 500 / 500 Other: Meal Dinner Percent of Meal Consumed 100% Weight 138.81 kg Blood Glucose* 256 Patient Weight 07/03/16 23:59 Weight 138.81 kg - General Appearance Exam: Patient is alert and oriented. In no acute distress. Lung sounds. Heart irregular rate and rhythm. Abdomen is obese. There is 3-4+ lower extremity swelling. There is a functioning AV fistula in the lower portion of the left arm. - Lab 07/03/16 03:40 07/02/16 05:15 Most recent lab results Calcium 8.4 mg/dL (8.6-10.8) L 07/02/16 05:15 Phosphorus 9.5 mg/dL (2.3-4.7) H 07/02/16 05:15 - VTE Documentation of Mechanical Device: Intermittent pneumatic compression device Consult Discharge Plan - Plan Referrals: Daxa Burdick CNP [Advanced Practice Nurse] - 07/14/16 10:00 am Joan Lockhart [Primary Care Provider] - 07/08/16 2:00 pm (Please follow up as schedule...)
[2016-07-03] MEDS: *HR* OxyCODONE/APAP 5/325 TABLET PO PRN (08:23)
[2016-07-03] MEDS: Insulin LISPRO 300 UNITS/3 ML VIAL SQ SCH ×6 (08:26→18:01)
[2016-07-03] MEDS ORDERED: 0.9 % Sodium Chloride 250 ML IVC PRN (08:43)
[2016-07-03] MEDS ORDERED: 0.9 % Sodium Chloride 1,000 ML PRIME SCH (08:45)
--- NOTE | 2016-07-03 11:40 | Infectious Disease Progress No ---
Date of Encounter: 07/03/16 Time of Encounter: 11:37 - Assessment and Plan (1) Leukocytosis Current Visit: Yes Status: Acute WBC 12.9 on admission. Normalized post-op and then went back up to 15 thousand. Back down to normal this morning. Likely secondary to right foot DFU infection. Blood cultures drawn 06/24/16 are negative x 2 sets. Qualifiers: Leukocytosis type: unspecified Qualified Code(s): D72.829 - Elevated white blood cell count, unspecified (2) Right foot infection Current Visit: Yes Status: Acute Location: Plantar aspect of the right foot. Causative organism GBS per intra-operative culture and MSSA per wound culture obtained in the wound clinic. Secondary to poor-fitting shoes. X-ray of the right foot showed no evidence of OM or gas. ESR >130, CRP 181. Blood cultures x 2 sets are negative. Status post I & D 06/26/16. Operative report reviewed. It appears that the ulcer did penetrate to the metatarsal, but no bony destruction was noted. Continue Rocephin 2 grams IV daily. Duration of treatment depends on the clinical picture. Based on the operative report, it appears that the 2nd metatarsal was exposed to infection. Recommend continuing IV antibiotic therapy. Will trend ESR and CRP and see how the patient does clinically. Get weekly CBC, BMP, ESR, and CRP every Thursday for the duration of antibiotic therapy. Social work following for possible rehab placement or home health referral. Continue activity restrictions and wound care as outlined by the podiatry team. Follow up with ID 07/14/16 at 1000. If patient is discharged to [facility], they will follow and manage the patient 's antibiotic therapy and no further follow-up with ID will be needed as an outpatient. (3) Diabetic ulcer of right foot Current Visit: Yes Status: Acute Location: Plantar aspect of the right foot. Follows with Dr. Mc in the Podiatry clinic. Continue wound care per Dr. Mc's recommendations. Qualifiers: Diabetic foot ulcer location: other Diabetes mellitus type: type 2 Non- pressure ulcer stage: with fat layer exposed Qualified Code(s): E11.621 - Type 2 diabetes mellitus with foot ulcer; L97.512 - Non-pressure chronic ulcer of other part of right foot with fat layer exposed (4) Chronic kidney disease, stage IV (severe) Current Visit: Yes Status: Chronic Serum creatinine continues to worsen. Per nephrology, likely progression of CKD. Nephrology consulted and following. Plans to re-attempt HD today. (5) Diabetes mellitus Current Visit: Yes Status: Chronic Uncontrolled. HgbA1C 13.1 --> non-compliance vs. ineffective treatment regimen. Recommend aggressive glucose monitoring and control to promote wound healing and prevent re-infection. 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 transplanted heart: [place] heart Associated angina: without angina Qualified Code(s): I25.10 - Atherosclerotic heart disease of [place] coronary artery without angina pectoris (7) COPD (chronic obstructive pulmonary disease) Current Visit: Yes Status: Chronic Qualifiers: COPD type: unspecified COPD Qualified Code(s): J44.9 - Chronic obstructive pulmonary disease, unspecified (8) Morbid obesity with BMI of 40.0-44.9, adult Current Visit: No Status: Chronic (9) PVD (peripheral vascular disease) Current Visit: Yes Status: Chronic LLE IDALIA normal. RLE IDALIA reveal mild disease. (10) Venous stasis dermatitis of both lower extremities Current Visit: No Status: Chronic (11) Atrial fibrillation Current Visit: Yes Status: Chronic Qualifiers: Atrial fibrillation type: unspecified Qualified Code(s): I48.91 - Unspecified atrial fibrillation - Subjective Interval history: Patient seen and examined. No acute events noted overnight. Attempted to start HD yesterday, but AV graft infiltrated. Per nephrology, plan to attempt HD again today. Patient states that overall he feels okay. He reports decreased urinary output and feels like he is retaining fluid and is more short of breath today. Denies any fevers or chills. Denies chest pain or cough. Denies nausea, vomiting, or constipation. He denies diarrhea. Denies abdominal pain and states his appetite is okay. Denies any urinary complaints. Denies pain surgical site. Denies any oral thrush or new skin lesions. He denies any more nosebleeds since yesterday. Infect Dis PN-Objective Data - Labs CBC & Chem 7: 07/03/16 03:40 07/02/16 05:15 Labs: Laboratory Results - last 24 hr 07/02/16 07/02/16 07/02/16 07:03 11:23 15:55 WBC RBC Hgb Hct MCV MCH MCHC RDW Plt Count MPV Immature Gran % Seg Neutrophils % Lymphocytes % Monocytes % Eosinophils % Basophils % Neutrophils # Lymphocytes # Monocytes # Eosinophils # Basophils # Nucleated RBCs/100 WBC PT INR APTT POC Glucose 243 H 283 H 249 H 07/02/16 07/02/16 07/03/16 17:39 21:28 03:40 WBC 8.5 RBC 3.08 L Hgb 8.7 L Hct 25.7 L MCV 83.4 MCH 28.2 MCHC 33.9 RDW 14.6 H Plt Count 354 MPV 10.4 Immature Gran % 2.2 Seg Neutrophils % 68.1 Lymphocytes % 15.1 Monocytes % 6.9 Eosinophils % 7.3 Basophils % 0.4 Neutrophils # 5.8 Lymphocytes # 1.3 Monocytes # 0.6 Eosinophils # 0.6 Basophils # 0.0 Nucleated RBCs/100 WBC 0.4 H PT INR APTT POC Glucose 257 H 256 H 07/03/16 07/03/16 07/03/16 03:40 03:40 11:11 WBC RBC Hgb Hct MCV MCH MCHC RDW Plt Count MPV Immature Gran % Seg Neutrophils % Lymphocytes % Monocytes % Eosinophils % Basophils % Neutrophils # Lymphocytes # Monocytes # Eosinophils # Basophils # Nucleated RBCs/100 WBC PT 17.6 H INR 1.6 APTT 86.3 H POC Glucose 215 H Cultures: Cultures 06/26/16 16:44 Anaerobic Culture - Final Right Foot No anaerobes were recovered. 06/24/16 09:41 Blood Culture - Final Peripheral Venipuncture No growth. 06/24/16 09:41 Blood Culture - Final Peripheral Venipuncture No growth. 06/26/16 16:44 Wound Culture - Final Right Foot Strep agalactiae - (Group B) Serology 07/02/16 06/29/16 06/27/16 Range/Units 08:54 09:30 14:12 Ur Eosinophil Smear 0 (None Seen) % Hepatitis A IgM Ab Nonreactive (Nonreactive) Hep Bs Antigen Nonreactive (Nonreactive) Hep Bs Antibody 0.16 mIU/mL Hep B Core IgM Ab Nonreactive (Nonreactive) Hepatitis C Ab Screen Nonreactive (Nonreactive) Exam - Constitutional Vitals: Temp Pulse Resp BP Pulse Ox 97.9 F 72 20 150/74 91 07/03/16 10:05 07/03/16 04:28 07/03/16 10:05 07/03/16 11:20 07/03/16 04:28 General appearance: cooperative, morbidly obese, no acute distress - Head Head exam: Present: atraumatic, normal inspection, normocephalic - Eye Eye exam: Present: EOMI, normal appearance, PERRL Pupils: Present: normal accommodation - ENT ENT exam: Present: mucous membranes moist - Neck Neck exam: Present: normal inspection - Respiratory Respiratory exam: Present: decreased breath sounds (bilateral bases), CTAB. Absent: rales, respiratory distress, rhonchi, wheezes - Cardiovascular Cardiovascular exam: Present: irregular rhythm. Absent: tachycardia - GI/Abdominal GI/Abdominal exam: Present: distended (obese), normal bowel sounds, soft. Absent: tenderness - Extremities Exam Extremities exam: Present: pedal edema (2+ BLE). Absent: joint swelling, tenderness Additional comments: Right foot with wound VAC dressing C//D/I. Small amount of dark brown serous drainage noted in the wound VAC canister. Wound vac set at 125mm Hg continuous suction. - Neurological Exam Neurological exam: Present: alert, oriented X3, no focal deficits - Psychiatric Psychiatric exam: Present: normal affect, normal mood - Skin Skin exam: Present: dry, intact, normal color, warm - VTE Documentation of Mechanical Device: Intermittent pneumatic compression device Consult Discharge Plan - Plan Referrals: Daxa Burdick CNP [Advanced Practice Nurse] - 07/14/16 10:00 am Joan Lockhart [Primary Care Provider] - 07/08/16 2:00 pm (Please follow up as schedule...) Prescriptions: Ceftriaxone Sodium [Ceftriaxone] 2 gm IV Q24H #24 [email or web address] - Attending Attestation I examined this patient and my medical decision-making was reviewed with the INFECTION CONTROL PRACTITIONER/PA/Advanced Practice Nurse/Resident Physician. I agree with the documented findings, disposition and treatment plan as described except to the extent set forth below.
--- NOTE | 2016-07-03 12:58 | Podiatry Progress Note ---
Date of Encounter: 07/03/16 Time of Encounter: 12:00 - Assessment and Plan (1) Acute on chronic renal failure Current Visit: Yes Status: Acute Nephrology following. Patient in dialysis currently and fistula is patent. (2) Morbid obesity with BMI of 50.0-59.9, adult Current Visit: No Status: Chronic (3) Diabetic ulcer of right foot Current Visit: Yes Status: Acute 1. S/p I&D multiple areas Right foot with application of wound vac by Dr. Mc on 06/26/16 for a diabetic foot ulcer, abscess to the plantar aspect of the right foot. Per Dr. Carias operative note the wound was found to be clean, the plantar capsular structures were ruptured and the plantar aspect of the head of the second metatarsal was visualized and exposed to infection. No evidence of bony erosion. Xray of right foot showed no evidence of OM or gas. 2. Intraop cultures: GBS, Wound Clinic culture: MSSA. ESR: >130, CRP: 181. WBC: 8.5. ID following, recommended continuation of Rocephin 2gm IV daily with weekly ESR, CRP, CBC, BMP duration of antibiotic therapy. Duration of treatment depends on clinical picture, trend ESR and CRP. Since patient will be going to [facility], no f/u with Infectious Disease is needed. 3. Wound vac changed yesterday (07/02/16). Wound vac orders: Change every M-W-. Irrigate wound with saline, apply small white foam to tunnel, bridge with black simplace wound vac sponge, connect to 125 mmhg continuous suction. Apply skin prep to all surrounding skin prior to application of wound vac. 4. Patient accepted at [facility] and agreeable to plan of care. 5. Patient to remain with protective weight bearing, no weight to be applied to incision site, use heel to transfer. Will need post op shoe and ordered. 6 F/u with Dr. Mc in wound care with in one week of discharge from hospital. Qualifiers: Diabetic foot ulcer location: other Diabetes mellitus type: type 2 Non- pressure ulcer stage: with fat layer exposed Qualified Code(s): E11.621 - Type 2 diabetes mellitus with foot ulcer; L97.512 - Non-pressure chronic ulcer of other part of right foot with fat layer exposed Subjective Principal diagnosis: Foot ulcer Interval history: Patient is s/p I&D of multiple areas of right foot with application of wound vac by Dr. Mc on 06/26/16. Patient is lying in bed with wound vac intact to the right foot. Patient is currently in dialysis. Friend at bedside. Patient states he is feeling less SOB today. No c/o pain currently, no cp, no c/o chills or flu like symptoms. Patient is agreeable to plan of care and being discharged to [facility]. Objective - Vital Signs Vital Signs: Vital Signs Temp Pulse Resp BP Pulse Ox 07/03/16 12:20 152/73 07/03/16 12:05 149/75 07/03/16 11:50 147/78 07/03/16 11:35 144/68 07/03/16 11:20 150/74 07/03/16 11:05 152/72 07/03/16 10:50 150/74 07/03/16 10:35 145/74 07/03/16 10:20 146/76 07/03/16 10:05 97.9 F 20 161/76 07/03/16 04:28 97.6 F 72 16 160/76 91 07/03/16 00:22 98.1 F 74 15 155/75 92 07/02/16 21:31 98.2 F 76 18 168/78 90 07/02/16 15:54 97.5 F L 69 15 148/63 93 Intake and Output 07/02/16 07/03/16 07/03/16 23:59 07:59 15:59 Intake Total 860 / 860 500 / 500 600 / 600 Output Total 500 / 500 0 / 0 Balance 860 / 860 0 / 0 600 / 600 Intake: IV Fluids 500 / 500 500 / 500 Heparin 25,000 UNIT/500 500 / 500 500 / 500 ML D5W 25,000 unit In 500 ml @ 14 UNIT/KG/HR 38. 864 mls/hr IVC .[id number] [facility] Rx#:[id number] Oral 360 / 360 0 / 0 Intake, Rinseback and 600 / 600 Flushes Output: Urine 500 / 500 0 / 0 Other: Meal Dinner Percent of Meal Consumed 100% Weight 138.81 kg Blood Glucose* 256 215 Hemodialysis Net Fluid 3373 Removed (mL) Patient Weight 07/03/16 23:59 Weight 138.81 kg - Exam Exam: General appearance: alert awake oriented X 3. Calm and pleasant, no acute distress.. Vascular: Right: Pedal pulses +1/4 DP/PT , No evidence of cyanosis, pallor or rubor, Edema graded at 2+/4, Skin Temperature warm, No calf pain with manual compression. capillary refill time is immediate to digits. Neurologic: sensation intact to right foot with light touch. Postop Exam: S/P wound vac intact to left foot with small white sponge and small black simplace wound vac sponge connected to 125 mmhg, continuous suction. No drainage observed to wound vac chamber, no pus, no odor, no fluctuance. Light periwound erythema, no ascending cellulitis. Sutures intact with macerated wound edges. - Lab Result Diagrams: 07/03/16 03:40 07/02/16 05:15 Labs: Abnormal lab results RBC 3.08 M/mcL (4.19-5.50) L 07/03/16 03:40 Hgb 8.7 g/dL (12.9-16.9) L 07/03/16 03:40 Hct 25.7 % (37.5-50.1) L 07/03/16 03:40 RDW 14.6 % (11.5-14.5) H 07/03/16 03:40 Nucleated RBCs/100 WBC 0.4 /100 WBC (0) H 07/03/16 03:40 ESR >= 130 mm/hr (0-10) H 06/23/16 16:13 PT 17.6 Seconds (9.4-12.1) H 07/03/16 03:40 APTT 86.3 Seconds (26.0-36.0) H 07/03/16 03:40 Sodium 131 mEq/L (136-145) L 07/02/16 05:15 Potassium 4.7 mEq/L (3.5-4.5) H 07/02/16 05:15 Chloride 95 mEq/L (98-109) L 07/02/16 05:15 BUN 99 mg/dL (8-26) H 07/02/16 05:15 Creatinine 8.47 mg/dL (0.72-1.25) H 07/02/16 05:15 Est GFR ( Amer) 8 (> 60) L 07/02/16 05:15 Est GFR (Non-Af Amer) 7 (> 60) L 07/02/16 05:15 Glucose 197 mg/dL (70-99) H 07/02/16 05:15 POC Glucose 215 (58-89) H 07/03/16 11:11 Hemoglobin A1c 13.1 % (-5.6) H 06/24/16 05:41 Calculated Osmolality 308 (280-300) H 07/02/16 05:15 Calcium 8.4 mg/dL (8.6-10.8) L 07/02/16 05:15 Phosphorus 9.5 mg/dL (2.3-4.7) H 07/02/16 05:15 C-Reactive Protein 181 mg/L (Less than 5) H 06/23/16 16:13 Albumin 2.1 g/dL (3.5-5.0) L 07/02/16 05:15 Globulin 5.3 g/dL (2.4-3.5) H 07/02/16 05:15 Albumin/Globulin Ratio 0.4 (1.1-2.2) L 07/02/16 05:15 Microbiology, Last 48 Hours 06/26/16 16:44 Anaerobic Culture - Final Right Foot No anaerobes were recovered. - VTE Documentation of Mechanical Device: Intermittent pneumatic compression device Consult Discharge Plan - Plan Referrals: Daxa Burdick CNP [Advanced Practice Nurse] - 07/14/16 10:00 am Joan Lockhart [Primary Care Provider] - 07/08/16 2:00 pm (Please follow up as schedule...)
[2016-07-03 13:41] VITALS: BP 156/75
--- NOTE | 2016-07-03 15:01 | Discharge Summary ---
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 Chronic kidney disease stage: stage 4 (severe) Qualified Code(s): E11.22 - Type 2 diabetes mellitus with diabetic chronic kidney disease; N18.4 - Chronic kidney disease, stage 4 (severe); Z79.4 - MCC (current) use of insulin (4) Diabetic ulcer of right foot Priority: Secondary Status: Acute Qualifiers: Diabetic foot ulcer location: other Diabetes mellitus type: type 2 Non- pressure ulcer stage: with fat layer exposed Qualified Code(s): E11.621 - Type 2 diabetes mellitus with foot ulcer; L97.512 - Non-pressure chronic ulcer of other part of right foot with fat layer exposed (5) Right foot infection Priority: Secondary Status: Acute (6) Insulin dependent type 2 diabetes mellitus Priority: Secondary Status: Chronic (7) Chronic anticoagulation Priority: Secondary Status: Chronic (8) Atrial fibrillation Priority: Secondary Status: Chronic Qualifiers: Atrial fibrillation type: unspecified Qualified Code(s): I48.91 - Unspecified atrial fibrillation (9) Nosebleed Priority: Secondary Status: Acute (10) Chronic respiratory failure with hypoxia Priority: Secondary Status: Acute (11) COPD (chronic obstructive pulmonary disease) Priority: Secondary Status: Chronic Qualifiers: COPD type: unspecified COPD Qualified Code(s): J44.9 - Chronic obstructive pulmonary disease, unspecified (12) PETE (obstructive sleep apnea) Priority: Secondary Status: Chronic - Discharge Medications Prescriptions: Ceftriaxone Sodium [Ceftriaxone] 2 gm IV Q24H #24 vial.port Home Medications: Allopurinol [Zyloprim 100 MG] 100 mg PO DAILY 05/10/15 [History] Aspirin [Adult Low Dose Aspirin EC] 81 mg PO DAILY 05/10/15 [History] Cholecalciferol (Vitamin D3) [Vitamin D3] 5,000 unit PO DAILY 05/10/15 [History] Gabapentin [Neurontin] 300 mg PO BID 05/10/15 [History] Isosorbide MONOnitrate (24 HR) [Imdur] 30 mg PO DAILY 05/10/15 [History] Levothyroxine Sodium [Synthroid] 200 mcg PO QAM 05/10/15 [History] Rosuvastatin [Crestor] 40 mg PO HS 05/10/15 [History] Nitroglycerin [Nitrostat] 0.4 mg SL AD PRN 07/15/15 [History] Furosemide [Lasix] 80 mg PO BID 30 Days 07/19/15 [Rx] Lisinopril [Zestril] 10 mg PO DAILY #30 tablet 08/08/15 [Rx] amLODIPine [Norvasc] 10 mg PO DAILY #60 tablet 08/08/15 [Rx] Omeprazole [PriLOSEC] 40 mg PO DAILY 01/10/16 [History] Calcitriol [Rocaltrol] 0.25 mcg PO DAILY 05/29/16 [History] Metoprolol Succinate 100 mg PO DAILY 05/29/16 [History] Ceftriaxone Sodium [Ceftriaxone] 2 gm IV Q24H #24 vial.port 07/03/16 [Rx] Heparin 4,500 unit IVP Q6H PRN #0 vial 07/03/16 [Rx] Heparin 9,000 unit IVP Q6HR PRN #0 vial 07/03/16 [Rx] Insulin DETEMIR [Levemir] 45 unit SQ BID [id number] 07/03/16 [Rx] Insulin LISPRO [HumaLOG] 0 units SQ HS vial 07/03/16 [Rx] Insulin LISPRO [HumaLOG] 0 units SQ TIDAC vial 07/03/16 [Rx] Insulin LISPRO [HumaLOG] 18 units SQ TIDWM vial 07/03/16 [Rx] OxyCODONE/APAP 5/325 [Percocet 5/325 MG] 1 each PO Q6HR PRN #0 tablet 07/03/16 [ Rx] Renal Vitamin [Renal Caps Softgel] 1 mg PO DAILY capsule 07/03/16 [Rx] Warfarin [Coumadin] 10 mg PO 1800 tablet 07/03/16 [Rx] Allergies/Adverse Reactions: Allergies Iodinated Contrast Media - Oral and Allergy (Verified 06/23/16 14:06) Swelling of Lip/Tongue/Throat Date of admission: 06/23/16 14:44 Primary care physician: Joan Lockhart Consults: 06/23/16 15:59 Consult to Hospitalist [CONS] Routine Consulting Provider: Hospitalist Zonia Reason for Consult: Management of diabetes and comorbidities Time Notified: 16:03 Call Completed: Yes Consult to Infectious Diseases [CONS] Routine Consulting Provider: Infectious Disease Marva Reason for Consult: Diabetic foot ulcer with infection Time Notified: 16:02 Call Completed: Yes 06/24/16 07:48 Consult to Prescriptionist [CONS] Routine Reason for SW Consult: ECF, WOUND VAC, IV ATB 06/25/16 16:13 Consult to Nephrology [CONS] Routine Consulting Provider: Kidney & HTN Sp[facility] NADEGE Reason for Consult: please evaluate for worsening OZZIE on CKD possible 2/2 vancomycin today. Call Completed: No 06/27/16 09:01 Consult to Invasive Line Access Team [CONS] Routine Reason for Consult: POOR VASCULAR ACCESS Line Type: EPIV 06/30/16 15:35 Consult to Prescriptionist [CONS] Routine Reason for SW Consult: ECF /SNF, wound VAC, IV A.B 07/02/16 08:45 Consult to Dialysis [CONS] ONCE 07/03/16 08:45 Consult to Dialysis [CONS] ONCE - Patient Status Disposition: Transfer Other Condition: Fair Functional capacity at discharge: wheelchair bound Overall status at discharge: patient is not back to baseline - Discharge Instructions Follow Up With: Daxa Burdick CNP [Advanced Practice Nurse] - 07/14/16 10:00 am Joan Lockhart [Primary Care Provider] - 07/08/16 2:00 pm (Please follow up as schedule...) - Diet and Activity Activity: as per physical therapy Diet: diabetic diet, low fat, low cholesterol, low salt diet Hospital course: Please refer to the history and physical, consultation notes and progress notes for a detailed review of this hospitalization. Hospital presentation: Briefly, Mr. Oneal is a 56 year old male who is been treated as an outpatient with local wound care by mouth antibiotics and attempted offloading with custom molded shoes with regression of a foot ulcer in the plantar aspect of his right second MTPJ. Patient's wound was originally isolated to just the dermis is now progressed into the subcutaneous tissue with tunneling 3 cm proximal at 6 o'clock position toward his heel. He did present with seropurulent drainage which was medially cultured after localized debridement of the wound today in clinic because of the purulent drainage he was then admitted with regression of the wound to subcutaneous tased level tunneling. Patient has a long history of multiple comorbidities including hypertension, type 2 diabetes, morbid obesity, chronic hypoxic respiratory failure and COPD, obstructive sleep apnea, atrial fibrillation on anticoagulation with Coumadin and stage V chronic kidney disease. He was admitted to podiatry service and medical service was consulted. Nephrology was also consulted. He was treated with IV antibiotics. Please see below ID history and podiatry. He was started on hemodialysis today which he tolerated well. Hemodialysis was done through a left forearm fistula. He is currently being bridged with heparin drip to full anticoagulation with warfarin for history of atrial fibrillation. He has had 2 episodes of nosebleed which are currently resolved. The patient has multiple active medical problems requiring extended inpatient care and therefore he will be transferred to for continued long-term acute care. He verbalizes understanding and agreement with the plan. Podiatry history: 1. S/p I&D multiple areas Right foot with application of wound vac by Dr. Mc on 06/26/16 for a diabetic foot ulcer, abscess to the plantar aspect of the right foot. Per Dr. Carias operative note the wound was found to be clean, the plantar capsular structures were ruptured and the plantar aspect of the head of the second metatarsal was visualized and exposed to infection. No evidence of bony erosion. Xray of right foot showed no evidence of OM or gas. 2. Intraop cultures: GBS, Wound Clinic culture: MSSA. ESR: >130, CRP: 181. WBC: 8.5. ID following, recommended continuation of Rocephin 2gm IV daily with weekly ESR, CRP, CBC, BMP duration of antibiotic therapy. Duration of treatment depends on clinical picture, trend ESR and CRP. Since patient will be going to [facility], no f/u with Infectious Disease is needed. 3. Wound vac changed yesterday (07/02/16). Wound vac orders: Change every M-W-. Irrigate wound with saline, apply small white foam to tunnel, bridge with black simplace wound vac sponge, connect to 125 mmhg continuous suction. Apply skin prep to all surrounding skin prior to application of wound vac. 4. Patient accepted at [facility] and agreeable to plan of care. 5. Patient to remain with protective weight bearing, no weight to be applied to incision site, use heel to transfer. Will need post op shoe and ordered. 6 F/u with Dr. Mc in wound care with in one week of discharge from hospital. Hospitalization history per infectious disease service: Infected right foot diabetic ulcer: Location: Plantar aspect of the right foot. Causative organism GBS per intra-operative culture and MSSA per wound culture obtained in the wound clinic. Secondary to poor-fitting shoes. X-ray of the right foot showed no evidence of OM or gas. ESR >130, CRP 181. Blood cultures x 2 sets are negative. Status post I & D 06/26/16. Operative report reviewed. It appears that the ulcer did penetrate to the metatarsal, but no bony destruction was noted. Continue Rocephin 2 grams IV daily. Duration of treatment depends on the clinical picture. Based on the operative report, it appears that the 2nd metatarsal was exposed to infection. Recommend continuing IV antibiotic therapy for at least 4 weeks. Will need to trend ESR and CRP and evaluate clinically. Get weekly CBC, BMP, ESR, and CRP every Thursday for the duration of antibiotic therapy. Continue activity restrictions and wound care as outlined by the podiatry team. LTACH to follow and manage the patient's antibiotic therapy and determine the length of need based on clinical picture. - Time Spent with Patient Total time spent providing and/or coordinating discharge services: Greater than 30 minutes (I have spent 40 minutes coordinating this discharge) - Constitutional Vitals: Temp Pulse Resp BP Pulse Ox 97.7 F 72 19 156/75 91 07/03/16 13:10 07/03/16 04:28 07/03/16 13:10 07/03/16 13:10 07/03/16 04:28 General appearance: Present: cooperative, A&O X 3, morbidly obese, pleasant, no acute distress - Respiratory Respiratory exam: Present: CTAB. Absent: accessory muscle use, rales, rhonchi, wheezes - Cardiovascular Cardiovascular exam: Present: irregular rhythm, +S1, +S2. Absent: diastolic murmur, gallop, rubs, systolic murmur - GI/Abdominal GI/Abdominal exam: Present: normal bowel sounds, soft, no peritoneal signs. Absent: distended, tenderness - Extremities Exam Extremities exam: Present: pedal edema (Right foot wound VAC present in place), warm, radial pulses palpable and symetrical. Absent: calf tenderness, cyanotic - VTE Documentation of Mechanical Device: Intermittent pneumatic compression device
[2016-07-03] MEDS: *HR* Warfarin 10 MG TABLET PO SCH (18:00)
== END 2016-07-03 19:15 | disposition other institution (70) | DRG 380 ==
LOC: 3NENU 14:44 → SUATTDRO 14:44 → 2ANU 06-29 13:16
PROVIDERS: ADMIT Podiatrist Foot Surgery; ATTEND Internal Medicine

== ENCOUNTER 2017-05-22 21:32 | Inpatient (IN) ==
--- NOTE | 2017-05-22 22:26 | Emergency Department Note ---
Disposition Clinical Impression: Osteomyelitis, Leukocytosis, Cellulitis Disposition: Admitted As Inpatient Condition: Good Time of Disposition: 23:18 Extremity Problem HPI - General Chief complaint: ED Extremity Problem,Nontraumatic Stated complaint: Ulcer L Foot Time Seen by Provider: 05/22/17 22:02 Source: patient Mode of arrival: ambulatory Limitations: no limitations Nursing Notes Reviewed: Yes Vital Signs Reviewed: Yes - History of Present Illness HPI Narrative: Patient presents to the ED with the chief complaint of an infection to his left great toe. Patient states that he has a known diabetic ulcer there. Reports he has been trying to get in with Dr. Mc, since he is supposed to have surgery on it. States that over the last few days. He thinks he is getting cellulitis there. He started to have fevers and chills and states that his leg feels stiff and is very painful. Some nausea but no vomiting. No chest pain or shortness of breath. Pain Scale: 7 - Related Data Home Medications Medication Instructions Recorded Confirmed Allopurinol [Zyloprim 100 MG] 100 mg PO DAILY 05/23/17 05/23/17 Aspirin Enteric Coated [Aspirin EC] 81 mg PO DAILY 05/23/17 05/23/17 Calcium Acetate [Phos-LO] 1,334 mg PO TIDWM 05/23/17 05/23/17 Ezetimibe [Zetia] 10 mg PO DAILY 05/23/17 05/23/17 Folic Acid 1 mg PO DAILY 05/23/17 05/23/17 Furosemide [Lasix] 40 mg PO BID 05/23/17 05/23/17 Gemfibrozil [Lopid] 600 mg PO BIDWM 05/23/17 05/23/17 Levothyroxine [Synthroid] 200 mcg PO DAILY 05/23/17 05/23/17 Metoprolol [Lopressor] 100 mg PO DAILY 05/23/17 05/23/17 Rosuvastatin Calcium [Crestor] 40 mg PO DAILY 05/23/17 05/23/17 Warfarin [Coumadin] 10 mg PO 1800 05/23/17 05/23/17 hydrALAZINE [HydrALAZINE] 25 mg PO BID 05/23/17 05/23/17 Allergies Allergy/AdvReac Type Severity Reaction Status Date / Time Iodinated Contrast- Oral and Allergy Swelling Verified 05/20/17 13:55 IV Dye of [Iodinated Contrast Media - Lip/Tongue/Throat Oral and] red dye Allergy Rash Verified 05/20/17 13:55 Review of Systems: As reviewed in the HPI. All other systems reviewed are negative or normal. Constitutional: Reports: as per HPI Cardiovascular: Reports: as per HPI Gastrointestinal: Reports: as per HPI Past Medical History - Past Medical History Attestation: Yes The following information was validated with the patient. Source: patient Medical history: Reports: arthritis, atrial fibrillation, CHF, COPD, coronary artery disease, DVT, diabetes, GERD, hyperlipidemia, hypertension, kidney stones , myocardial infarction, osteoporosis, peripheral artery disease, renal disease , thyroid disease, venous stasis, other Surgical history: Reports: other Psychiatric history: Reports: no psych history - Social History Smoking Status: Former smoker Smokeless Tobacco Status: No Alcohol use: Reports: none Drug use: Reports: none Physical Exam - General Limitations: no limitations General appearance: alert, in no apparent distress - Head Head exam: atraumatic, normocephalic, normal inspection - ENT ENT exam: other (Nasal cannula in place) - Neck Neck exam: Present: normal inspection, full ROM, trachea midline - Respiratory Respiratory exam: Present: normal lung sounds bilaterally - Cardiovascular Cardiovascular exam: Present: regular rate, normal rhythm, normal heart sounds - Abdominal Exam Abdominal exam: Present: soft, Non-Tender. Absent: tenderness, distention, guarding, rebound, rigidity Course Course Narrative: Patient presenting to the ED with concern over left foot infection. Patient on initial evaluation, appears uncomfortable. He is still fully dressed with boots on, so we will have him take off his socks and shoes and get into a gown for examination. Sepsis labs are ordered due to his fever and source of infection. We will also get an x-ray to evaluate for possible osteo as patient states he is supposed to have surgery on that foot. Anyways, and this infection has been there for quite some time. - Reevaluation(s) Reevaluation #1: Patient has a leukocytosis, but normal lactic acid. His x-ray shows a chronic osteomyelitis. He is scheduled to have surgery next week, but he does have a superimposed infection. We will start him on Zosyn and linezolid due to his renal function rather than vancomycin. Patient will be admitted to the hospitalist service. His left first toe does have some erythema and deformity to the mildly warm and nontender. States this is about how it normally appears that the pain is worse than usual. Vital Signs Temperature 101.5 F H 05/22/17 21:41 Pulse Rate 96 05/22/17 21:41 Respiratory Rate 23 05/22/17 21:41 Blood Pressure 122/64 05/22/17 21:41 O2 Sat by Pulse Oximetry 91 05/22/17 21:41 Temperature 98.3 F 05/23/17 04:10 Pulse Rate 787 05/23/17 04:10 Respiratory Rate 14 05/23/17 04:10 Blood Pressure 142/82 05/23/17 04:10 O2 Sat by Pulse Oximetry 99 05/23/17 04:10 Oxygen Delivery Oxygen Delivery Room Air Extremity Problem, Nontraumati - Lab Data Result diagrams: 05/22/17 22:20 05/22/17 22:20 Lab Results 05/22/17 05/22/17 05/22/17 Range/Units 22:20 22:20 22:20 WBC 21.2 H D (4.3-11.1) K/mcL RBC 4.23 (4.19-5.50) M/mcL Hgb 13.4 (12.9-16.9) g/dL Hct 39.0 (37.5-50.1) % MCV 92.2 (83.0-100.0) fL MCH 31.7 (28.0-33.3) pg MCHC 34.4 (31.6-35.5) g/dL RDW 13.5 (11.5-14.5) % Plt Count 278 (140-400) K/mcL MPV 11.0 (9.4-12.4) fL Immature Gran % 1.0 (0-4) % Seg Neutrophils % 87.2 % Lymphocytes % 5.2 % Monocytes % 5.9 % Eosinophils % 0.4 % Basophils % 0.3 % Neutrophils # 18.5 H (1.6-8.9) K/mcL Lymphocytes # 1.1 (0.6-4.6) K/mcL Monocytes # 1.3 (0.0-1.3) K/mcL Eosinophils # 0.1 (0.0-0.6) K/mcL Basophils # 0.1 (0.0-0.2) K/mcL PT 23.8 H (9.4-12.1) Seconds INR 2.2 APTT 47.3 H (26.0-36.0) Seconds Sodium 132 L (136-145) mEq/L Potassium 5.8 H (3.5-5.1) mEq/L Chloride 93 L (98-107) mEq/L Carbon Dioxide 26 (23-29) mEq/L BUN 28 H (6-20) mg/dL Creatinine 3.00 H (0.70-1.30) mg/dL Est GFR ( Amer) 26 L (> 60) Est GFR (Non-Af Amer) 22 L (> 60) BUN/Creatinine Ratio 9 (6-26) Glucose 334 H (70-105) mg/dL Calculated Osmolality 293 (280-300) Lactic Acid (0.5-2.2) mmol/L Calcium 8.9 (8.6-10.3) mg/dL 05/22/17 Range/Units 22:20 WBC (4.3-11.1) K/mcL RBC (4.19-5.50) M/mcL Hgb (12.9-16.9) g/dL Hct (37.5-50.1) % MCV (83.0-100.0) fL MCH (28.0-33.3) pg MCHC (31.6-35.5) g/dL RDW (11.5-14.5) % Plt Count (140-400) K/mcL MPV (9.4-12.4) fL Immature Gran % (0-4) % Seg Neutrophils % % Lymphocytes % % Monocytes % % Eosinophils % % Basophils % % Neutrophils # (1.6-8.9) K/mcL Lymphocytes # (0.6-4.6) K/mcL Monocytes # (0.0-1.3) K/mcL Eosinophils # (0.0-0.6) K/mcL Basophils # (0.0-0.2) K/mcL PT (9.4-12.1) Seconds INR APTT (26.0-36.0) Seconds Sodium (136-145) mEq/L Potassium (3.5-5.1) mEq/L Chloride (98-107) mEq/L Carbon Dioxide (23-29) mEq/L BUN (6-20) mg/dL Creatinine (0.70-1.30) mg/dL Est GFR ( Amer) (> 60) Est GFR (Non-Af Amer) (> 60) BUN/Creatinine Ratio (6-26) Glucose (70-105) mg/dL Calculated Osmolality (280-300) Lactic Acid 1.3 (0.5-2.2) mmol/L Calcium (8.6-10.3) mg/dL
[2017-05-22 22:34] LABS: Basophils # 0.1 K/mcL (0.0-0.2); Basophils % 0.3 %; Eosinophils # 0.1 K/mcL (0.0-0.6); Eosinophils % 0.4 %; Hemoglobin 13.4 g/dL (12.9-16.9); Lymphocytes # 1.1 K/mcL (0.6-4.6); Lymphocytes % 5.2 %; Mean Corpuscular HGB Conc 34.4 g/dL (31.6-35.5); Mean Corpuscular Hemoglobin 31.7 pg (28.0-33.3); Mean Corpuscular Volume 92.2 fL (83.0-100.0); Monocytes # 1.3 K/mcL (0.0-1.3); Monocytes % 5.9 %; Platelet Count 278 K/mcL (140-400); Red Blood Count 4.23 M/mcL (4.19-5.50); Red Cell Distribution Width 13.5 % (11.5-14.5); Segmented Neutrophils % 87.2 %
[2017-05-22 22:39] LABS: INR 2.2; Prothrombin Time 23.8 Seconds (9.4-12.1)
[2017-05-22 22:42] LABS: Activated Partial Thrombo Time 47.3 Seconds (26.0-36.0)
[2017-05-22 22:47] LABS: Neutrophils # 18.5 K/mcL (1.6-8.9)
[2017-05-22 22:52] LABS: Calcium 8.9 mg/dL (8.6-10.3); Potassium 5.8 mEq/L (3.5-5.1)
[2017-05-22] MEDS ORDERED: Piperacillin/Tazobactam 3.375 GM in 0.9 % Sodium Chloride Mini Bag 100 ML IVPB ONE (23:16)
--- NOTE | 2017-05-23 00:44 | Emergency Department Note ---
Disposition Clinical Impression: Osteomyelitis, Leukocytosis, Cellulitis Disposition: Admitted As Inpatient Condition: Good General Adult HPI - General Chief complaint: ED Extremity Problem,Nontraumatic Stated complaint: Ulcer L Foot Time Seen by Provider: 05/22/17 22:02 Source: patient Mode of arrival: ambulatory Limitations: no limitations Nursing Notes Reviewed: Yes Vital Signs Reviewed: Yes - History of Present Illness Pain Scale: 6 - Related Data Home Medications Medication Instructions Recorded Confirmed Allopurinol [Zyloprim 100 MG] 100 mg PO DAILY 05/23/17 05/23/17 Aspirin Enteric Coated [Aspirin EC] 81 mg PO DAILY 05/23/17 05/23/17 Calcium Acetate [Phos-LO] 1,334 mg PO TIDWM 05/23/17 05/23/17 Ezetimibe [Zetia] 10 mg PO DAILY 05/23/17 05/23/17 Folic Acid 1 mg PO DAILY 05/23/17 05/23/17 Furosemide [Lasix] 40 mg PO BID 05/23/17 05/23/17 Gemfibrozil [Lopid] 600 mg PO BIDWM 05/23/17 05/23/17 Levothyroxine [Synthroid] 200 mcg PO DAILY 05/23/17 05/23/17 Metoprolol [Lopressor] 100 mg PO DAILY 05/23/17 05/23/17 Rosuvastatin Calcium [Crestor] 40 mg PO DAILY 05/23/17 05/23/17 Warfarin [Coumadin] 10 mg PO 1800 05/23/17 05/23/17 hydrALAZINE [HydrALAZINE] 25 mg PO BID 05/23/17 05/23/17 Allergies Allergy/AdvReac Type Severity Reaction Status Date / Time Iodinated Contrast- Oral and Allergy Swelling Verified 05/20/17 13:55 IV Dye of [Iodinated Contrast Media - Lip/Tongue/Throat Oral and] red dye Allergy Rash Verified 05/20/17 13:55 Constitutional: Reports: as per HPI Cardiovascular: Reports: as per HPI Gastrointestinal: Reports: as per HPI Past Medical History - Past Medical History Medical history: Reports: arthritis, atrial fibrillation, CHF, COPD, coronary artery disease, DVT, diabetes, GERD, hyperlipidemia, hypertension, kidney stones , myocardial infarction, osteoporosis, peripheral artery disease, renal disease , thyroid disease, venous stasis, other Surgical history: Reports: other Psychiatric history: Reports: no psych history - Social History Smoking Status: Former smoker Smokeless Tobacco Status: No Alcohol use: Reports: none Drug use: Reports: none Physical Exam - General Limitations: no limitations General appearance: alert, in no apparent distress Course Vital Signs Temperature 101.5 F H 05/22/17 21:41 Pulse Rate 96 05/22/17 21:41 Respiratory Rate 23 05/22/17 21:41 Blood Pressure 122/64 05/22/17 21:41 O2 Sat by Pulse Oximetry 91 05/22/17 21:41 Temperature 99.5 F 05/22/17 23:46 Pulse Rate 81 05/22/17 23:46 Respiratory Rate 18 05/22/17 23:46 Blood Pressure 118/59 05/22/17 23:46 O2 Sat by Pulse Oximetry 95 05/22/17 23:46 Oxygen Delivery Oxygen Delivery Nasal Cannula Medical Decision Making - Lab Data Result diagrams: 05/22/17 22:20 05/22/17 22:20 Lab Results 05/22/17 05/22/17 05/22/17 Range/Units 22:20 22:20 22:20 WBC 21.2 H D (4.3-11.1) K/mcL RBC 4.23 (4.19-5.50) M/mcL Hgb 13.4 (12.9-16.9) g/dL Hct 39.0 (37.5-50.1) % MCV 92.2 (83.0-100.0) fL MCH 31.7 (28.0-33.3) pg MCHC 34.4 (31.6-35.5) g/dL RDW 13.5 (11.5-14.5) % Plt Count 278 (140-400) K/mcL MPV 11.0 (9.4-12.4) fL Immature Gran % 1.0 (0-4) % Seg Neutrophils % 87.2 % Lymphocytes % 5.2 % Monocytes % 5.9 % Eosinophils % 0.4 % Basophils % 0.3 % Neutrophils # 18.5 H (1.6-8.9) K/mcL Lymphocytes # 1.1 (0.6-4.6) K/mcL Monocytes # 1.3 (0.0-1.3) K/mcL Eosinophils # 0.1 (0.0-0.6) K/mcL Basophils # 0.1 (0.0-0.2) K/mcL PT 23.8 H (9.4-12.1) Seconds INR 2.2 APTT 47.3 H (26.0-36.0) Seconds Sodium 132 L (136-145) mEq/L Potassium 5.8 H (3.5-5.1) mEq/L Chloride 93 L (98-107) mEq/L Carbon Dioxide 26 (23-29) mEq/L BUN 28 H (6-20) mg/dL Creatinine 3.00 H (0.70-1.30) mg/dL Est GFR ( Amer) 26 L (> 60) Est GFR (Non-Af Amer) 22 L (> 60) BUN/Creatinine Ratio 9 (6-26) Glucose 334 H (70-105) mg/dL Calculated Osmolality 293 (280-300) Lactic Acid (0.5-2.2) mmol/L Calcium 8.9 (8.6-10.3) mg/dL 05/22/17 Range/Units 22:20 WBC (4.3-11.1) K/mcL RBC (4.19-5.50) M/mcL Hgb (12.9-16.9) g/dL Hct (37.5-50.1) % MCV (83.0-100.0) fL MCH (28.0-33.3) pg MCHC (31.6-35.5) g/dL RDW (11.5-14.5) % Plt Count (140-400) K/mcL MPV (9.4-12.4) fL Immature Gran % (0-4) % Seg Neutrophils % % Lymphocytes % % Monocytes % % Eosinophils % % Basophils % % Neutrophils # (1.6-8.9) K/mcL Lymphocytes # (0.6-4.6) K/mcL Monocytes # (0.0-1.3) K/mcL Eosinophils # (0.0-0.6) K/mcL Basophils # (0.0-0.2) K/mcL PT (9.4-12.1) Seconds INR APTT (26.0-36.0) Seconds Sodium (136-145) mEq/L Potassium (3.5-5.1) mEq/L Chloride (98-107) mEq/L Carbon Dioxide (23-29) mEq/L BUN (6-20) mg/dL Creatinine (0.70-1.30) mg/dL Est GFR ( Amer) (> 60) Est GFR (Non-Af Amer) (> 60) BUN/Creatinine Ratio (6-26) Glucose (70-105) mg/dL Calculated Osmolality (280-300) Lactic Acid 1.3 (0.5-2.2) mmol/L Calcium (8.6-10.3) mg/dL Attestation Statement - Attestation Attestation: I, Donny Faustin MD, personally evaluated this patient and discussed their management with the resident physician. I reviewed the resident's note and agree with the documented findings, medical decision making, and plan of care. 57-year-old male presents to the emergency department with a complaint of increased pain and swelling in his left foot and lower leg from an ulcer on the plantar aspect of his foot. He is followed by podiatry and is actually scheduled for surgery on this next week. Symptoms worse today and he developed a fever. Also increased drainage from the open wound. On examination patient is a well-developed obese male in no acute distress. He is alert and oriented 3. There is no cyanosis or diaphoresis. There is about a 1 cm open ulceration on the plantar aspect of the distal left foot. There is some erythema of the distal foot with diffuse swelling. Labs reviewed. Leukocytosis. X-ray shows soft tissue swelling of the forefoot with destructive changes secondary to prior osteomyelitis with no definite acute osteomyelitis. Cultures obtained and antibiotics initiated. The hospitalist, Dr. Zimmerman, was consulted and accepted admission of the patient.
[2017-05-23] MEDS ORDERED: Naloxone 0.4 MG/ML INJ IVP PRN (03:42)
[2017-05-23] MEDS ORDERED: *HR* Dextrose 50 % in Water (Syg) 50 ML SYRINGE IVP PRN ×2 (03:52→08:00)
[2017-05-23] MEDS ORDERED: D5% in Water 1,000 ML IVC PRN ×2 (03:52→08:00)
[2017-05-23] MEDS ORDERED: Dextrose Gel 15 GM/37.5 ML TUBE PO PRN ×4 (03:52→08:00)
--- NOTE | 2017-05-23 04:07 | Internal Med History&Physical ---
Date of Encounter: 05/23/17 Time of Encounter: 03:25 Internal Medicine - H&P: HPI Chief complaint: infected foot/toe Admitted From: Emergency Dept History of present illness: Mr. Oneal is a 57 year old male who presents to the ER with complaints of painful swollen left foot and toe. He he has been dealing with a diabetic foot ulcer on the sole of his left foot just proximal to his toes. Over the last 2 to 3 days, he's noticed increasing redness, warmth, pain, and swelling to his foot and big toe. This prompted him to come to the ER where he was seen and evaluated and noted to have a diabetic foot ulcer on the sole of his foot just proximal to his toes and associated with surrounding cellulitis. He was subsequently admitted to the hospitalist service with a consult to podiatry. Upon my assessment of the patient, he is somnolent but easily arousable. He does not appear to be in distress. He admits to the above complaints and reports fevers at home. He's had some shakes and chills but no night sweats. He denies any vomiting, diarrhea, abdominal pain, cough, congestion. Glucose control has been suboptimal. Patient meets sepsis criteria, but clinically, he does not appear to be septic. Lactate level admission in the ER was normal. Vital signs are stable. His kidney function is abnormal, but he has end-stage renal disease and is on hemodialysis. We will trend lactates and start him on some IV fluids. I do not feel he needs fluid resuscitation. His fluid balance will need to monitored closely given his dependency on dialysis. I reviewed all his old wound cultures and he's had multiple organisms growing including Klebsiella, Enterobacter, enterococcus, group B strep, and Stenotrophomonas maltophilia. From what I could gather, there were no [id number] organisms and no MRSA. We'll continue antibiotics and await further cultures as ordered and obtained in the ER. Past Med Surg Social Fam HX - Past Medical History Attestation: Yes The following information was validated with the patient. Source: patient, old records reviewed Medical history: arthritis, atrial fibrillation, CHF, COPD, coronary artery disease, DVT, diabetes, GERD, hyperlipidemia, hypertension, kidney stones, myocardial infarction, osteoporosis, peripheral artery disease, renal disease, thyroid disease, venous stasis, other Psychiatric history: no psych history - Past Surgical History Surgical History: other (foot surgery on right foot for DFU; AV fistula for dialysis) - Social History Smoking Status: Former smoker Smokeless Tobacco Status: No Alcohol use: none Drug use: none Current living situation: Home Activity Level: Independent ambulation Recent Out of Country Travel Within the Last 8 Weeks: No - Family History Mother Adopted: [place]: Yue Oneal Age: 71 Family Member Ethnicity: Non- Living Status: Age at : 71 Cause of : Stomach cancer Hx Family Cancer: Yes (Stomach) Hx Family Endocrine Disorder: Yes Father Adopted: [place]: Tong Oneal Age: 52 Family Member Ethnicity: Non- Living Status: Age at : 52 Cause of : Heart attack Hx Family Cardiac Disorders: Yes (Heart disease) Hx Family Cancer: Yes Hx Family Endocrine Disorder: Yes Internal Medicine - H&P: Meds Allopurinol [Zyloprim 100 MG] 100 mg PO DAILY 05/23/17 [History] Aspirin Enteric Coated [Aspirin EC] 81 mg PO DAILY 05/23/17 [History] Calcium Acetate [Phos-LO] 1,334 mg PO TIDWM 05/23/17 [History] Ezetimibe [Zetia] 10 mg PO DAILY 05/23/17 [History] Folic Acid 1 mg PO DAILY 05/23/17 [History] Furosemide [Lasix] 40 mg PO BID 05/23/17 [History] Gemfibrozil [Lopid] 600 mg PO BIDWM 05/23/17 [History] Levothyroxine [Synthroid] 200 mcg PO DAILY 05/23/17 [History] Metoprolol [Lopressor] 100 mg PO DAILY 05/23/17 [History] Rosuvastatin Calcium [Crestor] 40 mg PO DAILY 05/23/17 [History] Warfarin [Coumadin] 10 mg PO 1800 05/23/17 [History] hydrALAZINE [HydrALAZINE] 25 mg PO BID 05/23/17 [History] 3 Allergy/AdvReac Type Severity Reaction Status Date / Time Iodinated Contrast- Oral and Allergy Swelling Verified 05/20/17 13:55 IV Dye of [Iodinated Contrast Media - Lip/Tongue/Throat Oral and] red dye Allergy Rash Verified 05/20/17 13:55 - Constitutional Constitutional: chills, fever(s), no night sweats - EENT Eyes: no blurry vision, no change in vision Ears: no ear pain, no tinnitus Nose, mouth and throat: no nasal congestion, no nasal discharge, no sinus pressure, no sore throat - Cardiovascular Cardiovascular ROS IM: no chest pain, no diaphoresis, no dyspnea, no dyspnea on exertion - Respiratory Respiratory: no cough, no hemoptysis, no chest congestion, no excessive phlegm production - Gastrointestinal Gastrointestinal: nausea, no abdominal pain, no diarrhea, no hematemesis, no hematochezia, no melena, no vomiting - Genitourinary Genitourinary ROS male: no dysuria, no flank pain, no hematuria - Musculoskeletal Musculoskeletal ROS IM: arthralgias, no muscle weakness, no myalgias - Integumentary Integumentary IM: no rash, no jaundice - Neurological Neurological ROS: no dizziness, no focal weakness, no frequent falls, no headache(s) - Psychiatric Psychiatric: no anxiety, no depression - Endocrine Endocrine IM: no polydipsia, no polyuria - Hematologic/Lymphatic Hematologic/Lymphatic: easy bruising, no lymphadenopathy - Allergic/Immunologic Allergic/Immunologic: no wheezing, no GI upset with certain foods - Constitutional Vitals: Temp Pulse Resp BP Pulse Ox 98.0 F 82 16 134/75 95 05/23/17 01:19 05/23/17 01:19 05/23/17 01:19 05/23/17 01:19 05/23/17 01:19 General appearance: Present: cooperative, mild distress, A&O X 3, pleasant, answers questions appropriately - Head Head exam: Present: atraumatic, normal inspection - Eye Eye exam: Present: EOMI, normal appearance, PERRL. Absent: scleral icterus Pupils: Present: normal accommodation - ENT ENT exam: Present: mucous membranes dry, normal exam, normal oropharynx - Neck Neck exam general surgery: Present: full ROM, supple. Absent: lymphadenopathy, tenderness, nuchal rigidity, thyromegaly - Respiratory Respiratory exam: Present: CTAB. Absent: chest wall tenderness, rales, respiratory distress, rhonchi, wheezes - Cardiovascular Cardiovascular exam: Present: RRR, +S1, +S2. Absent: diastolic murmur, systolic murmur - GI/Abdominal GI/Abdominal exam: Present: normal bowel sounds, soft. Absent: guarding, hepatomegaly, mass, rebound, splenomegaly, tenderness - Extremities Exam Extremities exam: Present: full ROM, normal capillary refill, tenderness (left foot/toes), warm. Absent: calf tenderness, joint swelling, radial pulses palpable and symmetrical Additional comments: ~2 cm DFU (open) on distal sole of foot just proximal to his toes; surrounding cellulitis of toes - Back Exam Back exam: Present: normal inspection. Absent: CVA tenderness (L), CVA tenderness (R) - Neurological Exam Neurological exam: Present: alert, CN II-XII intact, oriented X3 - Psychiatric Psychiatric exam: Present: normal affect, normal mood - Skin Skin exam: Present: dry, warm Internal Med - H&P Results - Labs CBC & Chem 7: 05/22/17 22:20 05/22/17 22:20 - Diagnostic Studies Other Images Status: image reviewed by me (left foot xray -- soft tissue swelling) - Assessment and plan (1) Sepsis Current Visit: Yes Status: Acute Assessment and plan: 1. Will place on MIV, trend lactate levels, and continue antibiotics. 2. Follow blood cultures and wound cultures. 3. Likely source is foot ulcer. Qualifiers: Sepsis type: sepsis due to unspecified organism Qualified Code(s): A41.9 - Sepsis, unspecified organism (2) Diabetic foot ulcer Current Visit: Yes Status: Acute Assessment and plan: 1. Consult podiatry for likely surgical intervention. Qualifiers: Diabetic foot ulcer location: other Diabetes mellitus type: type 1 Laterality: left Non-pressure ulcer stage: with fat layer exposed Qualified Code(s): E10.621 - Type 1 diabetes mellitus with foot ulcer; L97.522 - Non- pressure chronic ulcer of other part of left foot with fat layer exposed; L97.522 - Non-pressure chronic ulcer of other part of left foot with fat layer exposed; L97.522 - Non-pressure chronic ulcer of other part of left foot with fat layer exposed; L97.522 - Non-pressure chronic ulcer of other part of left foot with fat layer exposed (3) Cellulitis Current Visit: Yes Status: Acute Assessment and plan: 1. Secondary to foot ulcer. 2. Continue antibiotics as above. 3. Follow clinically. Qualifiers: Site of cellulitis: extremity Site of cellulitis of extremity: toe Laterality: left Qualified Code(s): L03.032 - Cellulitis of left toe (4) ESRD (end stage renal disease) on dialysis Current Visit: Yes Status: Chronic Assessment and plan: 1. Consult Nephrology for ongoing dialysis needs. (5) DVT prophylaxis Current Visit: No Status: Acute Assessment and plan: 1. Therapeutic on Coumadin.
[2017-05-23] MEDS: 0.9 % Sodium Chloride 1,000 ML IVC SCH (04:34)
[2017-05-23 07:09] LABS: Basophils % 0.2 %; Eosinophils % 0.1 %; Hematocrit 36.4 % (37.5-50.1); Hemoglobin 12.1 g/dL (12.9-16.9); Immature Granulocytes % 0.6 % (0-4); Lymphocytes # 1.5 K/mcL (0.6-4.6); Lymphocytes % 8.6 %; Mean Corpuscular HGB Conc 33.2 g/dL (31.6-35.5); Mean Corpuscular Hemoglobin 31.3 pg (28.0-33.3); Mean Corpuscular Volume 94.3 fL (83.0-100.0); Mean Platelet Volume 11.1 fL (9.4-12.4); Monocytes # 1.2 K/mcL (0.0-1.3); Monocytes % 6.9 %; Neutrophils # 14.9 K/mcL (1.6-8.9); Platelet Count 222 K/mcL (140-400); Red Blood Count 3.86 M/mcL (4.19-5.50); Red Cell Distribution Width 13.8 % (11.5-14.5); Segmented Neutrophils % 83.6 %
[2017-05-23 07:35] LABS: Albumin/Globulin Ratio 1.3 (1.1-2.2); Bilirubin,Total 1.1 mg/dL (0.3-1.0); Magnesium 1.7 mg/dL (1.6-2.6); Potassium 5.4 mEq/L (3.5-5.1)
[2017-05-23] MEDS: Insulin LISPRO 300 UNITS/3 ML VIAL SQ SCH ×3 (07:46→18:08)
[2017-05-23] MEDS: Aspirin Enteric Coated 81 MG Tablet PO SCH (07:51)
[2017-05-23] MEDS: Folic Acid 1 MG TABLET PO SCH (07:51)
[2017-05-23] MEDS: Metoprolol 100 MG TABLET PO SCH (07:51)
[2017-05-23] MEDS: hydrALAZINE 25 MG TABLET PO SCH ×2 (07:51→21:27)
[2017-05-23 07:57] LABS: Prothrombin Time 21.7 Seconds (9.4-12.1)
[2017-05-23] MEDS: Calcium Acetate 667 MG CAPSULE PO SCH ×3 (08:00→17:53)
--- NOTE | 2017-05-23 08:12 | Nephrology Consult Note ---
Date of Encounter: 05/23/17 Time of Encounter: 08:09 Assessment and Plan (1) ESRD (end stage renal disease) on dialysis Current Visit: Yes Status: Chronic The patient has end-stage renal disease in the setting of diabetic nephropathy. His last dialysis was yesterday. He will continue to receive dialysis every Thursday. He has been placed on IV antibiotics for worsening diabetic foot ulcer involving the left foot. Podiatry is been consulted. We will follow along with the patient will be [facility]. 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 of insulin; Z79.4 - remote computer terminal operator (current) use of insulin; Z79.4 - [facility] (current) use of insulin; Z99.2 - Dependence on renal dialysis; Z99.2 - Dependence on renal dialysis; Z99.2 - Dependence on renal dialysis; Z99.2 - Dependence on renal dialysis (3) Diabetic foot ulcer Current Visit: Yes Status: Acute Qualifiers: Diabetic foot ulcer location: other Diabetes mellitus type: type 2 Laterality: left Non-pressure ulcer stage: with fat layer exposed Qualified Code(s): E11.621 - Type 2 diabetes mellitus with foot ulcer; L97.522 - Non- pressure chronic ulcer of other part of left foot with fat layer exposed; L97.522 - Non-pressure chronic ulcer of other part of left foot with fat layer exposed; L97.522 - Non-pressure chronic ulcer of other part of left foot with fat layer exposed; L97.522 - Non-pressure chronic ulcer of other part of left foot with fat layer exposed History of Present Illness - History of Present Illness This is a 57-year-old male with end-stage renal disease related to diabetes and hypertension. The patient receives dialysis every Thursday and [place]. Patient was admitted to the hospital with worsening left foot pain in the setting of a plantar left foot ulcer. He has been following with Dr. Mc. He said he develop increasing pain swelling and redness of some of his toes. He also claims of had some fever and chills. Initial white count was 21.2. Blood sugars poorly controlled. Patient was admitted to the hospital for further evaluation and management. His been placed on IV antibiotics. Patient said he saw podiatry approximately a month ago. He reports that he is scheduled for foot surgery on of next week. Patient 's last dialysis was yesterday. Past Med Surg Social Fam HX - Past Medical History Medical history: arthritis, atrial fibrillation, CHF, COPD, coronary artery disease, DVT, diabetes, GERD, hyperlipidemia, hypertension, kidney stones, myocardial infarction, osteoporosis, peripheral artery disease, renal disease, thyroid disease, venous stasis, other Psychiatric history: no psych history - Past Surgical History Surgical History: other - Social History Smoking Status: Former smoker Smokeless Tobacco Status: No Alcohol use: none Drug use: none - Family History Mother Adopted: [place]: Yue Oneal Age: 71 Family Member Ethnicity: Non- Living Status: Age at : 71 Cause of : Stomach cancer Hx Family Cancer: Yes (Stomach) Hx Family Endocrine Disorder: Yes Father Adopted: [place]: Tong Oneal Age: 52 Family Member Ethnicity: Non- Living Status: Age at : 52 Cause of : Heart attack Hx Family Cardiac Disorders: Yes (Heart disease) Hx Family Cancer: Yes Hx Family Endocrine Disorder: Yes Medications and Allergies Allopurinol [Zyloprim 100 MG] 100 mg PO DAILY 05/23/17 [History] Aspirin Enteric Coated [Aspirin EC] 81 mg PO DAILY 05/23/17 [History] Calcium Acetate [Phos-LO] 1,334 mg PO TIDWM 05/23/17 [History] Ezetimibe [Zetia] 10 mg PO DAILY 05/23/17 [History] Folic Acid 1 mg PO DAILY 05/23/17 [History] Furosemide [Lasix] 40 mg PO BID 05/23/17 [History] Gemfibrozil [Lopid] 600 mg PO BIDWM 05/23/17 [History] Levothyroxine [Synthroid] 200 mcg PO DAILY 05/23/17 [History] Metoprolol [Lopressor] 100 mg PO DAILY 05/23/17 [History] Rosuvastatin Calcium [Crestor] 40 mg PO DAILY 05/23/17 [History] Warfarin [Coumadin] 10 mg PO 1800 05/23/17 [History] hydrALAZINE [HydrALAZINE] 25 mg PO BID 05/23/17 [History] 3 Allergy/AdvReac Type Severity Reaction Status Date / Time Iodinated Contrast- Oral and Allergy Swelling Verified 05/20/17 13:55 IV Dye of [Iodinated Contrast Media - Lip/Tongue/Throat Oral and] red dye Allergy Rash Verified 05/20/17 13:55 Review of Systems Constitutional: as per HPI, chills, fever(s) Eyes: bilateral: blurred vision (patient denies), diplopia (patient denies) Nose, mouth and throat: no dizziness, no headache(s) Cardiovascular: dyspnea on exertion, edema Respiratory: dyspnea on exertion Gastrointestinal: no abdominal pain, no change in bowel habits Musculoskeletal: as per HPI Musculoskeletal: left: foot pain, foot swelling Integumentary: as per HPI, changing lesions Neurological: as per HPI Psychiatric: no depression, no difficulty concentrating Endocrine: as per HPI Hematologic/Lymphatic: no easy bruising, no lymphadenopathy Exam - Vital Signs Vital signs: Initial Vital Signs Temp Pulse Resp BP Pulse Ox 101.5 F H 96 23 122/64 91 05/22/17 21:41 05/22/17 21:41 05/22/17 21:41 05/22/17 21:41 05/22/17 21:41 Vital Signs - Last 8 Hours Temp Pulse Resp BP Pulse Ox 05/23/17 07:48 98.3 F 70 15 148/84 94 05/23/17 04:10 98.3 F 787 14 142/82 99 Intake and Output 05/22/17 05/23/17 05/23/17 23:59 07:59 15:59 Other: Stool Size Moderate Stool Consistency soft Stool Characteristics Normal for Patient Stool Color Brown # Voids 1 Blood Glucose* 548 - General Appearance Exam: The patient is alert and oriented. In no acute distress. Temperature is 98.3. Blood pressure 148/84. Lungs denies breath sounds otherwise clear to auscultation. Heart regular rate and rhythm with a 2/6 talk ejection murmur. Abdomen is obese. Bowel sounds are present. There is no tenderness guarding or rigidity. Lower extremity show mild lower extremity swelling. There is compression stocking on the right lower extremity. The left foot demonstrates a plantar ulcer at the base of the first 2 metatarsals. There is a functioning AV fistula in the left upper extremity. Results - Lab Results 05/23/17 06:50 05/23/17 06:50 Most recent lab results Calcium 8.0 mg/dL (8.6-10.3) L 05/23/17 06:50 Magnesium 1.7 mg/dL (1.6-2.6) 05/23/17 06:50 Consult Discharge Plan - Plan Referrals: Joan Lockhart [Primary Care Provider] -
[2017-05-23] MEDS: Insulin DETEMIR 100 UNIT/ML X5UNITS SQ SCH ×2 (10:14→21:27)
[2017-05-23] MEDS: (Ezetimibe [Zetia] 10 MG) PO SCH (10:17)
[2017-05-23] MEDS: Piperacillin/Tazobactam 3.375 GM in 0.9 % Sodium Chloride Mini Bag 100 ML IVPB SCH (11:02)
--- NOTE | 2017-05-23 12:30 | Podiatry Consult Note ---
Date of Encounter: 05/23/17 Time of Encounter: 10:40 Assessment and Plan (1) Type 2 diabetes mellitus with foot ulcer Current visit: Yes Status: Acute Uncontrolled diabetic male with last A1c 11.5% per patient with left submetatarsal 2 ulceration with infection. Per patient he was scheduled for surgery this with Dr. Mc to remove some bone from the left foot. I had a thorough review with the patient regarding his history/condition, my findings, and treatment options for the ulceration diabetic foot infection. He is currently receiving IV antibiotics and will continue. His WBC count is elevated but is trending downward. The ulceration was excisionally debrided with a #15 blade through subcutaneous tissue. With his systemic symptoms and increased WBC count will make sure no underlying abscess is present. MRI was ordered to evaluate for abscess of the left foot. Cultures were taken and sent to the lab for aerobic anaerobic and Gram stain of the left foot ulceration. Discussed infection present with patient and that he is high risk for partial foot/limb loss. Heel weightbearing at this time and will require diabetic offloading boot for the left foot. Did discuss with the patient that it is possible that he will require surgery but will await MRI. Wound care with Santyl changes daily. 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 Qualified Code( s): E11.621 - Type 2 diabetes mellitus with foot ulcer; L97.509 - Non-pressure chronic ulcer of other part of unspecified foot with unspecified severity; L97.509 - Non-pressure chronic ulcer of other part of unspecified foot with unspecified severity; L97.509 - Non-pressure chronic ulcer of other part of unspecified foot with unspecified severity; L97.509 - Non-pressure chronic ulcer of other part of unspecified foot with unspecified severity; Z79.4 - penitentiary (current) use of insulin; Z79.4 - truck terminal manager (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 Oneal is a 57 year old male diabetic male with an A1c of 11.5% and ESRD on HD who is admitted to the hospital with 2-3 day history of worsening left foot redness and swelling. He reports that he walked on his left foot all day on at a yard sale and at the end of the day he noticed blood on his socks and a bad smell coming from his left foot. He says redness and swelling increase from that point on. He says he did feel like he had a fever, chills and nausea. Denies vomiting. He says he is having a throbbing pain in the left foot. He says he was scheduled for surgery on the left foot to remove some bone on 05/[address] Mc. He says Dr. Mc has treated him for his right foot wound which has been healed since January. He was admitted with a WBC of 21 and podiatry was consult at for evaluation. Past Med Surg Social Fam HX - Past Medical History Medical history: arthritis, atrial fibrillation, CHF, COPD, coronary artery disease, DVT, diabetes, GERD, hyperlipidemia, hypertension, kidney stones, myocardial infarction, osteoporosis, peripheral artery disease, renal disease, thyroid disease, venous stasis, other Psychiatric history: no psych history - Past Surgical History Surgical History: other - Social History Smoking Status: Former smoker Smokeless Tobacco Status: No Alcohol use: none Drug use: none - Family History Mother Adopted: [place]: Yue Oneal Age: 71 Family Member Ethnicity: Non- Living Status: Age at : 71 Cause of : Stomach cancer Hx Family Cancer: Yes (Stomach) Hx Family Endocrine Disorder: Yes Father Adopted: [place]: Tong Oneal Age: 52 Family Member Ethnicity: Non- Living Status: Age at : 52 Cause of : Heart attack Hx Family Cardiac Disorders: Yes (Heart disease) Hx Family Cancer: Yes Hx Family Endocrine Disorder: Yes Medications and Allergies Allopurinol [Zyloprim 100 MG] 100 mg PO DAILY 05/23/17 [History] Aspirin Enteric Coated [Aspirin EC] 81 mg PO DAILY 05/23/17 [History] Calcium Acetate [Phos-LO] 1,334 mg PO TIDWM 05/23/17 [History] Ezetimibe [Zetia] 10 mg PO DAILY 05/23/17 [History] Folic Acid 1 mg PO DAILY 05/23/17 [History] Furosemide [Lasix] 40 mg PO BID 05/23/17 [History] Gemfibrozil [Lopid] 600 mg PO BIDWM 05/23/17 [History] Hydralazine HCl 50 mg PO BID 05/23/17 [History] Insulin Glargine,Hum.rec.anlog [Basaglar Kwikpen U-100] 60 unit SQ BID 05/23/17 [History] Insulin LISPRO [HumaLOG] 20 - 50 unit SQ TID PRN 05/23/17 [History] Levothyroxine [Synthroid] 200 mcg PO DAILY 05/23/17 [History] Metoprolol [Lopressor] 100 mg PO DAILY 05/23/17 [History] Rosuvastatin Calcium [Crestor] 40 mg PO DAILY 05/23/17 [History] Warfarin [Coumadin] 10 mg PO 1800 05/23/17 [History] 3 Allergy/AdvReac Type Severity Reaction Status Date / Time Iodinated Contrast- Oral and Allergy Swelling Verified 05/20/17 13:55 IV Dye of [Iodinated Contrast Media - Lip/Tongue/Throat Oral and] red dye Allergy Rash Verified 05/20/17 13:55 All Systems Reviewed: The remainder of the systems were reviewed and are negative - Constitutional Constitutional: fever(s) - Cardiovascular Cardiovascular: dyspnea - Respiratory Respiratory: no cough, no wheezing - Musculoskeletal Musculoskeletal: joint swelling, limited range of motion, numbness Physical Exam - Constitutional Vitals: Temp Pulse Resp BP Pulse Ox 97.3 F L 68 17 160/95 94 05/23/17 12:11 05/23/17 12:11 05/23/17 12:11 05/23/17 12:11 05/23/17 12:11 Exam: Well-developed obese male in no acute distress, AOx3 Vascular: Capillary refill time less than 3 seconds 5 digits left foot. Left foot is warm to touch. Mild edema of the left foot. Dermatology: Plantar left foot submetatarsal 2 there is an ulceration with fibro -granular base and hyperkeratotic rim and surrounding erythema. There is no purulence able to be expressed. The ulceration does not probe to bone. There is no fluctuance. The ulceration measures approximately 2 cm x 1.5 cm x 0.3 cm. Venous stasis changes bilateral extremities with hemosiderin deposits and skin. Musculoskeletal: No pain elicited with palpation of the submetatarsal 2 left foot ulceration. Equinus. No pain with calf squeeze bilateral. Neurology: Absent sensation to touch. X-ray: No erosions or signs of an acute osteomyelitis. Likely old fracture the second metatarsal head which was present in months previous on x-ray. Results - Labs Result Diagrams: 05/23/17 06:50 05/23/17 10:39 Labs: Abnormal lab results WBC 17.8 K/mcL (4.3-11.1) H 05/23/17 06:50 RBC 3.86 M/mcL (4.19-5.50) L 05/23/17 06:50 Hgb 12.1 g/dL (12.9-16.9) L 05/23/17 06:50 Hct 36.4 % (37.5-50.1) L 05/23/17 06:50 Neutrophils # 14.9 K/mcL (1.6-8.9) H 05/23/17 06:50 PT 21.7 Seconds (9.4-12.1) H 05/23/17 06:50 APTT 47.3 Seconds (26.0-36.0) H 05/22/17 22:20 Sodium 129 mEq/L (136-145) L 05/23/17 06:50 Potassium 5.4 mEq/L (3.5-5.1) H 05/23/17 06:50 Chloride 92 mEq/L (98-107) L 05/23/17 06:50 BUN 38 mg/dL (6-20) H 05/23/17 06:50 Creatinine 3.49 mg/dL (0.70-1.30) H 05/23/17 06:50 Est GFR ( Amer) 22 (> 60) L 05/23/17 06:50 Est GFR (Non-Af Amer) 18 (> 60) L 05/23/17 06:50 Glucose 655 mg/dL (70-105) H* 05/23/17 10:39 Calculated Osmolality 305 (280-300) H 05/23/17 06:50 Calcium 8.0 mg/dL (8.6-10.3) L 05/23/17 06:50 Total Bilirubin 1.1 mg/dL (0.3-1.0) H 05/23/17 06:50 H & H 05/23/17 Range/Units 06:50 Hgb 12.1 L (12.9-16.9) g/dL Hct 36.4 L (37.5-50.1) % All other labs normal. Consult Discharge Plan - Plan Referrals: Joan Lockhart [Primary Care Provider] -
[2017-05-23] MEDS ORDERED: Insulin Human Regular 10 UNIT in 0.9 % Sodium Chloride 10 ML IV ONE (17:08)
[2017-05-23] MEDS ORDERED: Insulin LISPRO 300 UNITS/3 ML VIAL SQ SCH (17:08)
[2017-05-23] MEDS: *HR* Warfarin 10 MG TABLET PO SCH (17:53)
[2017-05-24] MEDS: Piperacillin/Tazobactam 3.375 GM in 0.9 % Sodium Chloride Mini Bag 100 ML IVPB SCH ×2 (00:20→12:07)
[2017-05-24] MEDS: 0.9 % Sodium Chloride 1,000 ML IVC SCH (00:28)
[2017-05-24] MEDS ORDERED: *HR* Dextrose 50 % in Water (Syg) 50 ML SYRINGE IVP PRN (07:35)
[2017-05-24] MEDS ORDERED: D5% in Water 1,000 ML IVC PRN (07:35)
[2017-05-24] MEDS ORDERED: Dextrose Gel 15 GM/37.5 ML TUBE PO PRN ×2 (07:35)
[2017-05-24] MEDS: Calcium Acetate 667 MG CAPSULE PO SCH ×3 (08:16→17:01)
[2017-05-24] MEDS: hydrALAZINE 25 MG TABLET PO SCH ×2 (08:17→21:30)
[2017-05-24] MEDS: Insulin DETEMIR 100 UNIT/ML X5UNITS SQ SCH ×2 (08:17→21:31)
[2017-05-24] MEDS: Folic Acid 1 MG TABLET PO SCH (08:17)
[2017-05-24] MEDS: Aspirin Enteric Coated 81 MG Tablet PO SCH (08:17)
[2017-05-24] MEDS: Metoprolol 100 MG TABLET PO SCH (08:17)
[2017-05-24] MEDS: Insulin LISPRO 300 UNITS/3 ML VIAL SQ SCH ×4 (08:18→21:31)
[2017-05-24] MEDS: (Ezetimibe [Zetia] 10 MG) PO SCH (08:22)
[2017-05-24 08:35] LABS: Basophils # 0.1 K/mcL (0.0-0.2); Basophils % 0.5 %; Eosinophils # 0.5 K/mcL (0.0-0.6); Hemoglobin 12.3 g/dL (12.9-16.9); Immature Granulocytes % 0.2 % (0-4); Lymphocytes # 1.5 K/mcL (0.6-4.6); Lymphocytes % 16.1 %; Mean Corpuscular HGB Conc 34.2 g/dL (31.6-35.5); Mean Corpuscular Hemoglobin 31.6 pg (28.0-33.3); Mean Corpuscular Volume 92.5 fL (83.0-100.0); Mean Platelet Volume 10.9 fL (9.4-12.4); Monocytes # 0.6 K/mcL (0.0-1.3); Monocytes % 6.2 %; Neutrophils # 6.9 K/mcL (1.6-8.9); Platelet Count 238 K/mcL (140-400); Red Blood Count 3.89 M/mcL (4.19-5.50); Red Cell Distribution Width 13.6 % (11.5-14.5)
[2017-05-24 08:41] LABS: INR 1.9; Prothrombin Time 20.7 Seconds (9.4-12.1)
[2017-05-24 08:53] LABS: Calcium 8.4 mg/dL (8.6-10.3); Potassium 4.2 mEq/L (3.5-5.1)
--- NOTE | 2017-05-24 09:10 | Internal Med Progress Note ---
Date of Encounter: 05/24/17 Time of Encounter: 09:00 - Assessment and plan (1) Cellulitis Current Visit: Yes Status: Acute Assessment and plan: Continue VAC watch her Zosyn until cultures finalize. Gram stain shows gram- negative bacilli. These Infections are often polymicrobial; however, MDR pathogens can be ruled out. (2) Sepsis Current Visit: Yes Status: Acute Qualifiers: Sepsis type: sepsis due to unspecified organism Qualified Code(s): A41.9 - Sepsis, unspecified organism (3) Diabetic foot ulcer Current Visit: Yes Status: Acute Assessment and plan: Appreciate podiatry recommendations. He will need follow-up follow-up with podiatry in clinic. Increase Levemir to 70 units twice a day from 60 units twice a day. Continue Humalog sliding scale. Still uncontrolled but much better than yesterday. Qualifiers: Diabetic foot ulcer location: other Diabetes mellitus type: type 2 Laterality: left Non-pressure ulcer stage: with fat layer exposed Qualified Code(s): E11.621 - Type 2 diabetes mellitus with foot ulcer; L97.522 - Non- pressure chronic ulcer of other part of left foot with fat layer exposed; L97.522 - Non-pressure chronic ulcer of other part of left foot with fat layer exposed; L97.522 - Non-pressure chronic ulcer of other part of left foot with fat layer exposed; L97.522 - Non-pressure chronic ulcer of other part of left foot with fat layer exposed (4) ESRD (end stage renal disease) on dialysis Current Visit: Yes Status: Chronic Assessment and plan: Next dialysis tomorrow. Patient on Thursday dialysis. (5) DVT prophylaxis Current Visit: No Status: Acute - Time Spent With Patient Total time spent is greater than 50% in coordination of care (as documented) at patient's floor/unit and/or counseling patient: 25 - 35 minutes - Subjective Interval history: Patient was seen by podiatry yesterday. The wound was debrided with a 15 blade through subcutaneous Tissue and culture sent. Preliminary Gram stain today shows gram-negative bacilli in these cultures. MRI of the ordered and the results are as following: IMPRESSION: 1. Nonspecific subcutaneous edema throughout the dorsal soft tissues of the foot with subcutaneous gas identified along the dorsal soft tissues adjacent to the 1st MTP joint. Findings compatible with soft tissue infection/cellulitis. No organized drainable fluid collection identified. 2. Chronic destructive changes of the 1st MTP joint dating back to 2013. Findings compatible with sequela of remote/chronic osteomyelitis. There is also a small 1st MTP joint effusion. No significant surrounding osseous edema identified to suggest acute osteomyelitis. 3. Postsurgical changes of 2nd metatarsal head resection and 5th to amputation with dorsal dislocations of the 2nd and 3rd digits. 4. Diffuse intrinsic muscular edema. Findings are nonspecific and can be seen in the setting of long-standing denervation changes as well as in the setting of myositis. Patient reports adequate pain control. No interval events noted since last night. - Constitutional Vitals: Temp Pulse Resp BP Pulse Ox 97.6 F 72 16 136/76 95 05/24/17 07:15 05/24/17 07:15 05/24/17 07:15 05/24/17 07:15 05/24/17 08:36 General appearance: Present: cooperative, mild distress, A&O X 3, pleasant, answers questions appropriately Exam: Physical exam Gen: Comfortable, laying in bed, in no visible distress HEENT: Normocephalic, atraumatic. No conjunctival icterus. Moist oral mucosa. Neck: Supple Lungs: Clear to auscultation, no foreign sounds Heart: Normal S1-S2, no murmurs rubs or gallops Abdomen: Normoactive bowel sounds, no guarding rigidity or tenderness Extremities: Trace edema noted. No clubbing or cyanosis Neuro: Alert oriented 3, no focal deficits Skin: Foot wound was debrided yesterday and is under dressing. This was not opened today. Internal Medicine: Result - Labs CBC & Chem 7: 05/24/17 08:06 05/24/17 08:06 Labs: Short CBC 05/24/17 Range/Units 08:06 WBC 9.5 (4.3-11.1) K/mcL Hgb 12.3 L (12.9-16.9) g/dL Hct 36.0 L (37.5-50.1) % Plt Count 238 (140-400) K/mcL Neutrophils # 6.9 (1.6-8.9) K/mcL BMP 05/23/17 05/24/17 10:39 08:06 Sodium 133 L Potassium 4.2 Chloride 96 L Carbon Dioxide 26 BUN 44 H Creatinine 3.17 H Glucose 655 H* 239 H Calcium 8.4 L - ABG Interpretation ABG results: PT/INR, D-dimer PT 20.7 Seconds (9.4-12.1) H 05/24/17 08:06 - Impressions Impressions Foot MRI 05/23/17 12:41 IMPRESSION: 1. Nonspecific subcutaneous edema throughout the dorsal soft tissues of the foot with subcutaneous gas identified along the dorsal soft tissues adjacent to the 1st MTP joint. Findings compatible with soft tissue infection/cellulitis. No organized drainable fluid collection identified. 2. Chronic destructive changes of the 1st MTP joint dating back to 2013. Findings compatible with sequela of remote/chronic osteomyelitis. There is also a small 1st MTP joint effusion. No significant surrounding osseous edema identified to suggest acute osteomyelitis. 3. Postsurgical changes of 2nd metatarsal head resection and 5th to amputation with dorsal dislocations of the 2nd and 3rd digits. 4. Diffuse intrinsic muscular edema. Findings are nonspecific and can be seen in the setting of long-standing denervation changes as well as in the setting of myositis. D/ / Jaime Fairbanks MD / Jaime Fairbanks MD Interpreting Provider: Jaime Fairbanks MD - VTE Documentation of Mechanical Device: Graduated compression elastic hosiery Consult Discharge Plan - Plan Referrals: Joan Lockhart [Primary Care Provider] -
[2017-05-24] MEDS ORDERED: Insulin DETEMIR 100 UNIT/ML X5UNITS SQ SCH (09:15)
[2017-05-24] MEDS ORDERED: Insulin DETEMIR 100 UNIT/ML X5UNITS SQ ONE (09:30)
[2017-05-24] MEDS: *HR* Warfarin 10 MG TABLET PO SCH (17:01)
[2017-05-24] MEDS: Acetaminophen 325 MG TABLET PO PRN (17:13)
[2017-05-24 22:51] LABS: Estimated Average Glucose 280 mg/dl; Hemoglobin A1C 11.4 %
[2017-05-25] MEDS: Piperacillin/Tazobactam 3.375 GM in 0.9 % Sodium Chloride Mini Bag 100 ML IVPB SCH ×2 (00:19→08:16)
[2017-05-25] MEDS: Acetaminophen 325 MG TABLET PO PRN ×2 (01:06→10:57)
[2017-05-25 01:26] LABS: Basophils # 0.1 K/mcL (0.0-0.2); Basophils % 0.8 %; Eosinophils # 0.4 K/mcL (0.0-0.6); Eosinophils % 6.5 %; Hematocrit 34.5 % (37.5-50.1); Hemoglobin 11.5 g/dL (12.9-16.9); Immature Granulocytes % 0.2 % (0-4); Lymphocytes # 1.4 K/mcL (0.6-4.6); Lymphocytes % 21.1 %; Mean Corpuscular HGB Conc 33.3 g/dL (31.6-35.5); Mean Corpuscular Hemoglobin 30.7 pg (28.0-33.3); Mean Platelet Volume 10.8 fL (9.4-12.4); Monocytes # 0.5 K/mcL (0.0-1.3); Monocytes % 7.7 %; Neutrophils # 4.2 K/mcL (1.6-8.9); Platelet Count 218 K/mcL (140-400); Red Blood Count 3.75 M/mcL (4.19-5.50); Red Cell Distribution Width 13.6 % (11.5-14.5); Segmented Neutrophils % 63.7 %
[2017-05-25 01:44] LABS: Calcium 8.6 mg/dL (8.6-10.3); Potassium 4.4 mEq/L (3.5-5.1)
[2017-05-25 07:08] LABS: INR 1.9
[2017-05-25] MEDS: Calcium Acetate 667 MG CAPSULE PO SCH ×3 (08:16→20:47)
[2017-05-25] MEDS: Insulin LISPRO 300 UNITS/3 ML VIAL SQ SCH ×4 (08:21→23:56)
[2017-05-25] MEDS ORDERED: 0.9 % Sodium Chloride 250 ML IVC PRN (08:47)
--- NOTE | 2017-05-25 08:47 | Nephrology Progress Note ---
Date of Encounter: 05/25/17 Time of Encounter: 08:45 - Assessment and Plan (1) ESRD (end stage renal disease) on dialysis Current Visit: Yes Status: Chronic The patient is stable from a renal perspective. He will undergo dialysis today. Potassium is 4.4 so he will be dialyzed on a 3K bath. (2) Type 2 diabetes mellitus with diabetic chronic kidney disease Current Visit: Yes Status: Acute Qualifiers: Diabetes mellitus senior living insulin use: with senior living use Chronic kidney disease stage: on chronic dialysis Qualified Code(s): E11.22 - Type 2 diabetes mellitus with diabetic chronic kidney disease; N18.6 - End stage renal disease; Z99.2 - Dependence on renal dialysis; Z99.2 - Dependence on renal dialysis; Z99.2 - Dependence on renal dialysis; N18.6 - End stage renal disease ; N18.6 - End stage renal disease; N18.6 - End stage renal disease; Z79.4 - FPC (current) use of insulin; Z79.4 - FPC (current) use of insulin; Z79.4 - FPC (current) use of insulin; Z79.4 - FPC (current) use of insulin; Z99.2 - Dependence on renal dialysis (3) Diabetic foot ulcer Current Visit: Yes Status: Acute Qualifiers: Diabetic foot ulcer location: other Diabetes mellitus type: type 2 Laterality: left Non-pressure ulcer stage: with fat layer exposed Qualified Code(s): E11.621 - Type 2 diabetes mellitus with foot ulcer; L97.522 - Non- pressure chronic ulcer of other part of left foot with fat layer exposed; L97.522 - Non-pressure chronic ulcer of other part of left foot with fat layer exposed; L97.522 - Non-pressure chronic ulcer of other part of left foot with fat layer exposed; L97.522 - Non-pressure chronic ulcer of other part of left foot with fat layer exposed Subjective Interval history: The patient reports she is experiencing some discomfort along the medial aspect of his left foot. Otherwise he seems to be doing well. He is scheduled for his usual dialysis today. Objective - Vital Signs Vital signs: Vital Signs Temp Pulse Resp BP Pulse Ox 05/25/17 06:49 98 F 68 16 143/78 97 05/25/17 03:50 97.7 F 65 18 148/74 96 05/24/17 23:30 98.6 F 80 20 180/79 96 05/24/17 18:56 97.7 F 60 16 133/77 96 05/24/17 17:00 98.4 F 61 16 144/76 96 05/24/17 11:22 97.7 F 64 16 154/81 98 Intake and Output 05/24/17 05/25/17 05/25/17 23:59 07:59 15:59 Intake Total 540 / 540 600 / 600 Output Total 600 / 600 800 / 800 Balance -60 / -60 -200 / -200 Intake: IV Fluids 100 / 100 Zosyn 3.375 GM In 0.9 % Sodium 100 / 100 Chloride (Mini-Bag +) 100 ML @ 25 mls/hr IVPB Q8HR [facility] Rx#: [id number] Oral 540 / 540 500 / 500 Output: Urine 600 / 600 800 / 800 Other: Meal Dinner Percent of Meal Consumed 100% # Voids 1 Blood Glucose* 289 183 - General Appearance Exam: Patient is alert and oriented. He is in no acute distress. Lungs diminished breath sounds otherwise clear. Heart regular rate and rhythm with a 2/6 talk ejection murmur. Abdomen is benign. There is some mild lower extremity swelling. There is a dressing on the left foot. He is a functioning AV fistula in the left upper extremity. - Lab 05/25/17 01:04 05/25/17 01:04 Most recent lab results Calcium 8.6 mg/dL (8.6-10.3) 05/25/17 01:04 Magnesium 1.7 mg/dL (1.6-2.6) 05/23/17 06:50 - VTE Documentation of Mechanical Device: Graduated compression elastic hosiery Consult Discharge Plan - Plan Referrals: Joan Lockhart [Primary Care Provider] -
[2017-05-25] MEDS ORDERED: Aminoglycoside Consult 1 EACH MC ONE (09:02)
--- NOTE | 2017-05-25 09:41 | Internal Med Progress Note ---
Date of Encounter: 05/25/17 Time of Encounter: 09:38 - Assessment and plan (1) Sepsis Current Visit: Yes Status: Acute Assessment and plan: Due to acute cellulitis and infection of left foot diabetic ulcer. Wound culture growing Klebsiella. Patient is currently receiving Zosyn. Podiatry considering surgical intervention. MRI of the left foot did not show any acute osteomyelitis but patient appears to have changes of chronic or remote osteomyelitis. There is also subcutaneous gas along the dorsal soft tissues adjacent to first MTP joint. Will follow podiatric recommendations. Moderate risk for complications. Continue current antibiotics for now. We will de- escalate depending on the recommendations from podiatry. Will also discuss with infectious disease once surgical intervention addressed. Qualifiers: Sepsis type: sepsis due to unspecified organism Qualified Code(s): A41.9 - Sepsis, unspecified organism (2) Cellulitis Current Visit: Yes Status: Acute Assessment and plan: Management as above. (3) Diabetic foot ulcer Current Visit: Yes Status: Acute Assessment and plan: With diabetic neuropathy. Blood sugars are improving since insulin regimen and add any changes yesterday. Will monitor for now. Continue diabetic diet. Will start patient on gabapentin at a low-dose for neuropathy. Qualifiers: Diabetic foot ulcer location: other Diabetes mellitus type: type 2 Laterality: left Non-pressure ulcer stage: with fat layer exposed Qualified Code(s): E11.621 - Type 2 diabetes mellitus with foot ulcer; L97.522 - Non- pressure chronic ulcer of other part of left foot with fat layer exposed; L97.522 - Non-pressure chronic ulcer of other part of left foot with fat layer exposed; L97.522 - Non-pressure chronic ulcer of other part of left foot with fat layer exposed; L97.522 - Non-pressure chronic ulcer of other part of left foot with fat layer exposed (4) ESRD (end stage renal disease) on dialysis Current Visit: Yes Status: Chronic Assessment and plan: Nephrology following. Dialysis today. (5) DVT prophylaxis Current Visit: Yes Status: Acute Assessment and plan: Patient is on Coumadin. INR is 1.9 - Time Spent With Patient Total time spent is greater than 50% in coordination of care (as documented) at patient's floor/unit and/or counseling patient: - Subjective Interval history: Patient complains of clicking sensation in his left foot. Denies any pain. No fever or chills overnight. No nausea or vomiting. - Constitutional Vitals: Temp Pulse Resp BP Pulse Ox 98 F 68 16 143/78 97 05/25/17 06:49 05/25/17 06:49 05/25/17 06:49 05/25/17 06:49 05/25/17 06:49 General appearance: Present: cooperative, mild distress, A&O X 3, pleasant, answers questions appropriately - Neck Neck exam general surgery: Present: supple, trachea midline. Absent: lymphadenopathy - Respiratory Respiratory exam: Present: CTAB. Absent: accessory muscle use, rales, rhonchi, wheezes - Cardiovascular Cardiovascular exam: Present: RRR, +S1, +S2. Absent: diastolic murmur, gallop, rubs, systolic murmur - GI/Abdominal GI/Abdominal exam: Present: normal bowel sounds, soft, no peritoneal signs. Absent: distended, tenderness - Extremities Exam Extremities exam: Present: warm, radial pulses palpable and symmetrical. Absent : calf tenderness, cyanotic, pedal edema Additional comments: Left foot currently bandaged. Nontender to palpation - Neurological Exam Neurological exam: Present: alert, oriented X3, no focal deficits. Absent: facial droop, speech deficit - Skin Skin exam: Present: dry, intact Internal Medicine: Result - Labs CBC & Chem 7: 05/25/17 01:04 05/25/17 01:04 Labs: Short CBC 05/25/17 Range/Units 01:04 WBC 6.6 (4.3-11.1) K/mcL Hgb 11.5 L (12.9-16.9) g/dL Hct 34.5 L (37.5-50.1) % Plt Count 218 (140-400) K/mcL Neutrophils # 4.2 (1.6-8.9) K/mcL BMP 05/25/17 01:04 Sodium 134 L Potassium 4.4 Chloride 99 Carbon Dioxide 27 BUN 53 H Creatinine 3.29 H Glucose 343 H Calcium 8.6 - ABG Interpretation ABG results: PT/INR, D-dimer PT 21.0 Seconds (9.4-12.1) H 05/25/17 06:39 - VTE Documentation of Mechanical Device: Graduated compression elastic hosiery Consult Discharge Plan - Plan Referrals: Joan Lockhart [Primary Care Provider] -
[2017-05-25] MEDS: (Ezetimibe [Zetia] 10 MG) PO SCH (10:48)
[2017-05-25] MEDS: Insulin DETEMIR 100 UNIT/ML X5UNITS SQ SCH ×2 (10:49→23:56)
[2017-05-25] MEDS: Aspirin Enteric Coated 81 MG Tablet PO SCH (10:50)
[2017-05-25] MEDS: Folic Acid 1 MG TABLET PO SCH (10:50)
[2017-05-25] MEDS: hydrALAZINE 25 MG TABLET PO SCH ×2 (10:50→20:47)
[2017-05-25] MEDS: Metoprolol 100 MG TABLET PO SCH (10:50)
[2017-05-25 11:07] LABS: Hepatitis B Surface Antibody 0.09 mIU/mL; Hepatitis B Surface Antigen Nonreactive (Nonreactive)
--- NOTE | 2017-05-25 13:00 | Podiatry Progress Note ---
Date of Encounter: 05/25/17 Time of Encounter: 12:00 - Assessment and Plan (1) Diabetes mellitus Current Visit: No Status: Chronic Qualifiers: Diabetes mellitus type: type 2 Diabetes mellitus senior living insulin use: with senior living use Diabetes mellitus complication status: with kidney complications Diabetes mellitus complication detail: with chronic kidney disease Chronic kidney disease stage: stage 4 (severe) Qualified Code(s): E11.22 - Type 2 diabetes mellitus with diabetic chronic kidney disease; N18.4 - Chronic kidney disease, stage 4 (severe); N18.4 - Chronic kidney disease, stage 4 (severe); N18.4 - Chronic kidney disease, stage 4 (severe); N18.4 - Chronic kidney disease, stage 4 (severe); Z79.4 - longterm (current) use of insulin; Z79.4 - longterm (current) use of insulin; Z79.4 - longterm (current) use of insulin; Z79.4 - joint terminal attack controller (current) use of insulin (2) Diabetic foot ulcer Current Visit: Yes Status: Acute Assessment: -Full thickness ulceration to sub #2 metatarsal head left foot, s/p excisional bedside debridement of ulceration to left foot by on 05/23/17. Clinically the ulceration does not look infected, WBC has decreased to 6.6 and patient is a febrile. - Left foot xray showed extensive forefoot soft tissue swelling. Unchanged joint destruction with next increased sclerosis and lucency in the left 1st metatarsal-phalangeal joint likely representing sequelae of prior osteomyelitis. No significant interval change to suggest superimposed active osteomyelitis. - Left foot MRI completed on 05/23/17, report showed nonspecific subcutaneous edema throughout the dorsal soft tissues of the foot with subcutaneous gas identified along the dorsal soft tissues adjacent to the 1st MTP joint. Findings compatible with soft tissue infection/ cellulitis. No organized drainable fluid collection identified. Chronic destructive changes of the 1st MTP joint dating back to 2013. Findings compatible with sequela of remote/chronic osteomyelitis. There is also a small 1st MTP joint effusion. No significant surrounding osseous edema identified to suggest acute osteomyelitis. Postsurgical changes of 2nd metatarsal head resection and 5th to amputation with dorsal dislocations of the 2nd and 3rd digits. Diffuse intrinsic muscular edema. - Wound culture isolated Klebsiella oxytoca. Plan: - Dr. Mc to plan for debridement of left foot ulcer in the OR on (). - Continue wound care as ordered. -Continue antibiotics. Qualifiers: Diabetic foot ulcer location: other Diabetes mellitus type: type 2 Laterality: left Non-pressure ulcer stage: with fat layer exposed Qualified Code(s): E11.621 - Type 2 diabetes mellitus with foot ulcer; L97.522 - Non- pressure chronic ulcer of other part of left foot with fat layer exposed; L97.522 - Non-pressure chronic ulcer of other part of left foot with fat layer exposed; L97.522 - Non-pressure chronic ulcer of other part of left foot with fat layer exposed; L97.522 - Non-pressure chronic ulcer of other part of left foot with fat layer exposed (3) PVD (peripheral vascular disease) Current Visit: No Status: Chronic Subjective Interval history: Patient is lying in bed with dressing dry and intact to the left foot. Patient is s/p excisional bedside debridement of ulceration to left foot by on 05/23/17. Cultures were obtained and isolated klebsiella oxytoca. Patient states he has a sensation of pins to the side of his left foot. Patient states pain is tolerable because he just received Tylenol. Patient denies any fever or chills overnight. Objective - Vital Signs Vital Signs: Vital Signs Temp Pulse Resp BP Pulse Ox 05/25/17 11:10 97.9 F 76 18 179/90 97 05/25/17 06:49 98 F 68 16 143/78 97 05/25/17 03:50 97.7 F 65 18 148/74 96 05/24/17 23:30 98.6 F 80 20 180/79 96 05/24/17 18:56 97.7 F 60 16 133/77 96 05/24/17 17:00 98.4 F 61 16 144/76 96 Intake and Output 05/24/17 05/25/17 05/25/17 23:59 07:59 15:59 Intake Total 540 / 540 600 / 600 366 / 366 Output Total 600 / 600 800 / 800 Balance -60 / -60 -200 / -200 366 / 366 Intake: IV Fluids 100 / 100 6 / 6 Zosyn 3.375 GM In 0.9 % Sodium 100 / 100 6 / 6 Chloride (Mini-Bag +) 100 ML @ 25 mls/hr IVPB Q8HR [facility] Rx#: [id number] Oral 540 / 540 500 / 500 360 / 360 Output: Urine 600 / 600 800 / 800 Other: Meal Dinner Breakfast Percent of Meal Consumed 100% 100% # Voids 1 Blood Glucose* 289 183 259 - Exam Exam: General: A&O x3, calm and cooperative. Vascular: No cyanosis, pallor or rubor, CFT is immediate. Skin is warm to touch , no calf pain with manual compression. Integuemtn: Plantar left foot sub #2 metatarsal ulceration with fibro-granular base, no periwound erythema, no odor, no pus, no probe to bone, no fluctuance, the ulceration measures approximately 2 cm x 1.5 cm x 0.3 cm. Venous stasis changes bilateral extremities with hemosiderin deposits and skin. - Lab Result Diagrams: 05/25/17 01:04 05/25/17 01:04 Labs: Abnormal lab results RBC 3.75 M/mcL (4.19-5.50) L 05/25/17 01:04 Hgb 11.5 g/dL (12.9-16.9) L 05/25/17 01:04 Hct 34.5 % (37.5-50.1) L 05/25/17 01:04 PT 21.0 Seconds (9.4-12.1) H 05/25/17 06:39 APTT 47.3 Seconds (26.0-36.0) H 05/22/17 22:20 Sodium 134 mEq/L (136-145) L 05/25/17 01:04 BUN 53 mg/dL (6-20) H 05/25/17 01:04 Creatinine 3.29 mg/dL (0.70-1.30) H 05/25/17 01:04 Est GFR ( Amer) 24 (> 60) L 05/25/17 01:04 Est GFR (Non-Af Amer) 19 (> 60) L 05/25/17 01:04 Glucose 343 mg/dL (70-105) H 05/25/17 01:04 POC Glucose 259 mg/dL (70-99) H 05/25/17 11:11 Hemoglobin A1c 11.4 % (-5.6) H 05/23/17 06:50 Calculated Osmolality 306 (280-300) H 05/25/17 01:04 Total Bilirubin 1.1 mg/dL (0.3-1.0) H 05/23/17 06:50 Vancomycin Trough 24 mcg/mL (5-10) H 05/24/17 08:06 Microbiology, Last 48 Hours 05/23/17 11:30 Wound Culture - Final Left Foot Klebsiella oxytoca 05/23/17 11:30 Gram Stain - Final Left Foot - VTE Documentation of Mechanical Device: Graduated compression elastic hosiery Consult Discharge Plan - Plan Referrals: Joan Lockhart [Primary Care Provider] -
[2017-05-25] MEDS ORDERED: 0.9 % Sodium Chloride 2,000 ML ONE (17:14)
[2017-05-25] MEDS: *HR* Warfarin 10 MG TABLET PO SCH (22:49)
[2017-05-26] MEDS: Piperacillin/Tazobactam 3.375 GM in 0.9 % Sodium Chloride Mini Bag 100 ML IVPB SCH ×3 (02:05→23:48)
[2017-05-26 07:48] LABS: INR 1.7; Prothrombin Time 18.6 Seconds (9.4-12.1)
[2017-05-26] MEDS: Aspirin Enteric Coated 81 MG Tablet PO SCH (08:00)
[2017-05-26] MEDS: Calcium Acetate 667 MG CAPSULE PO SCH ×3 (08:00→17:27)
[2017-05-26] MEDS: Folic Acid 1 MG TABLET PO SCH (08:00)
[2017-05-26] MEDS: hydrALAZINE 25 MG TABLET PO SCH ×3 (08:00→21:06)
[2017-05-26] MEDS: Metoprolol 100 MG TABLET PO SCH (08:01)
[2017-05-26] MEDS: Insulin DETEMIR 100 UNIT/ML X5UNITS SQ SCH ×2 (08:01→21:06)
[2017-05-26] MEDS: Insulin LISPRO 300 UNITS/3 ML VIAL SQ SCH ×4 (08:06→21:06)
[2017-05-26] MEDS: (Ezetimibe [Zetia] 10 MG) PO SCH (08:07)
--- NOTE | 2017-05-26 13:53 | Internal Med Progress Note ---
Date of Encounter: 05/26/17 Time of Encounter: 10:20 - Assessment and plan (1) Sepsis Current Visit: Yes Status: Acute Assessment and plan: Continue Zosyn. Wound culture positive for Klebsiella. Podiatric following. Sepsis related to left foot ulcer infection. Blood cultures have been negative. Qualifiers: Sepsis type: sepsis due to unspecified organism Qualified Code(s): A41.9 - Sepsis, unspecified organism (2) Diabetic foot ulcer Current Visit: Yes Status: Acute Assessment and plan: Podiatry following. Recommend surgery and is scheduled for . Qualifiers: Diabetic foot ulcer location: other Diabetes mellitus type: type 2 Laterality: left Non-pressure ulcer stage: with fat layer exposed Qualified Code(s): E11.621 - Type 2 diabetes mellitus with foot ulcer; L97.522 - Non- pressure chronic ulcer of other part of left foot with fat layer exposed; L97.522 - Non-pressure chronic ulcer of other part of left foot with fat layer exposed; L97.522 - Non-pressure chronic ulcer of other part of left foot with fat layer exposed; L97.522 - Non-pressure chronic ulcer of other part of left foot with fat layer exposed (3) Cellulitis Current Visit: Yes Status: Acute Assessment and plan: improving. Continue Zosyn (4) ESRD (end stage renal disease) on dialysis Current Visit: Yes Status: Chronic Assessment and plan: Nephrology following. (5) DVT prophylaxis Current Visit: Yes Status: Acute Assessment and plan: On Coumadin. INR is 1.7. (6) Diabetes Current Visit: Yes Status: Chronic Assessment and plan: Blood sugars are better controlled today. Continue current insulin regimen. Started gabapentin for neuropathy. Qualifiers: Diabetes mellitus type: type 1 Diabetes mellitus complication status: with skin complications Diabetes mellitus complication detail: with foot ulcer Qualified Code(s): E10.621 - Type 1 diabetes mellitus with foot ulcer; L97.509 - Non-pressure chronic ulcer of other part of unspecified foot with unspecified severity; L97.509 - Non-pressure chronic ulcer of other part of unspecified foot with unspecified severity; L97.509 - Non-pressure chronic ulcer of other part of unspecified foot with unspecified severity; L97.509 - Non-pressure chronic ulcer of other part of unspecified foot with unspecified severity - Time Spent With Patient Total time spent is greater than 50% in coordination of care (as documented) at patient's floor/unit and/or counseling patient: - Subjective Interval history: Patient continues to have prickling sensation in his left foot. Reports that he was previously on gabapentin but this was stopped by his primary care provider due to his abnormal renal function. Known diagnosis of neuropathy. No fever or chills reported. - Constitutional Vitals: Temp Pulse Resp BP Pulse Ox 97.9 F 59 14 165/92 96 05/26/17 11:37 05/26/17 11:37 05/26/17 11:37 05/26/17 11:37 05/26/17 11:37 General appearance: Present: cooperative, mild distress, A&O X 3, pleasant, answers questions appropriately - Neck Neck exam general surgery: Present: supple, trachea midline. Absent: lymphadenopathy - Respiratory Respiratory exam: Present: CTAB. Absent: accessory muscle use, rales, rhonchi, wheezes - Cardiovascular Cardiovascular exam: Present: RRR, +S1, +S2. Absent: diastolic murmur, gallop, rubs, systolic murmur - GI/Abdominal GI/Abdominal exam: Present: normal bowel sounds, soft, no peritoneal signs. Absent: distended, tenderness - Extremities Exam Extremities exam: Present: warm, radial pulses palpable and symmetrical. Absent : calf tenderness, cyanotic, pedal edema Additional comments: Left foot diabetic foot ulcer currently bandaged. - Neurological Exam Neurological exam: Present: alert, oriented X3, no focal deficits. Absent: facial droop, speech deficit - Skin Skin exam: Present: dry, intact Internal Medicine: Result - Labs CBC & Chem 7: 05/25/17 01:04 05/25/17 01:04 - ABG Interpretation ABG results: PT/INR, D-dimer PT 18.6 Seconds (9.4-12.1) H 05/26/17 07:30 - VTE Documentation of Mechanical Device: Graduated compression elastic hosiery Consult Discharge Plan - Plan Referrals: Joan Lockhart [Primary Care Provider] -
[2017-05-26] MEDS: *HR* Warfarin 10 MG TABLET PO SCH (17:27)
[2017-05-26] MEDS: Gabapentin 100 MG CAPSULE PO SCH (21:06)
[2017-05-27 05:59] LABS: INR 1.4; Prothrombin Time 15.4 Seconds (9.4-12.1)
[2017-05-27] MEDS: Metoprolol 100 MG TABLET PO SCH (08:02)
[2017-05-27] MEDS: amLODIPine 5 MG TABLET PO SCH (08:02)
[2017-05-27] MEDS: Aspirin Enteric Coated 81 MG Tablet PO SCH (08:02)
[2017-05-27] MEDS: Folic Acid 1 MG TABLET PO SCH (08:02)
[2017-05-27] MEDS: hydrALAZINE 25 MG TABLET PO SCH ×3 (08:02→21:14)
[2017-05-27] MEDS: Insulin LISPRO 300 UNITS/3 ML VIAL SQ SCH ×7 (08:04→21:15)
[2017-05-27] MEDS: (Ezetimibe [Zetia] 10 MG) PO SCH (08:06)
[2017-05-27] MEDS: Calcium Acetate 667 MG CAPSULE PO SCH ×3 (08:15→20:25)
[2017-05-27] MEDS: Insulin DETEMIR 100 UNIT/ML X5UNITS SQ SCH ×2 (08:25→21:15)
[2017-05-27] MEDS ORDERED: 0.9 % Sodium Chloride 250 ML IVC PRN (08:51)
--- NOTE | 2017-05-27 08:51 | Nephrology Progress Note ---
Date of Encounter: 05/27/17 Time of Encounter: 08:49 - Assessment and Plan (1) ESRD (end stage renal disease) on dialysis Current Visit: Yes Status: Chronic The patient will undergo dialysis today with a 3K bath. Orders have been submitted. He continues on IV antibiotics for the diabetic foot ulcer. He Mander goes surgical debridement tomorrow. (2) Type 2 diabetes mellitus with diabetic chronic kidney disease Current Visit: Yes Status: Acute Qualifiers: Diabetes mellitus snf insulin use: with snf use Chronic kidney disease stage: on chronic dialysis Qualified Code(s): E11.22 - Type 2 diabetes mellitus with diabetic chronic kidney disease; N18.6 - End stage renal disease; Z99.2 - Dependence on renal dialysis; Z99.2 - Dependence on renal dialysis; Z99.2 - Dependence on renal dialysis; N18.6 - End stage renal disease ; N18.6 - End stage renal disease; N18.6 - End stage renal disease; Z79.4 - track laborer (current) use of insulin; Z79.4 - track laborer (current) use of insulin; Z79.4 - [facility] (current) use of insulin; Z79.4 - [facility] (current) use of insulin; Z99.2 - Dependence on renal dialysis (3) Diabetic foot ulcer Current Visit: Yes Status: Acute Qualifiers: Diabetic foot ulcer location: other Diabetes mellitus type: type 2 Laterality: left Non-pressure ulcer stage: with fat layer exposed Qualified Code(s): E11.621 - Type 2 diabetes mellitus with foot ulcer; L97.522 - Non- pressure chronic ulcer of other part of left foot with fat layer exposed; L97.522 - Non-pressure chronic ulcer of other part of left foot with fat layer exposed; L97.522 - Non-pressure chronic ulcer of other part of left foot with fat layer exposed; L97.522 - Non-pressure chronic ulcer of other part of left foot with fat layer exposed Subjective Interval history: The patient reports no new complaints. He says overall he is feeling better. He continues on IV antibiotics for his foot ulcer. He scheduled for his usual dialysis today. Objective - Vital Signs Vital signs: Vital Signs Temp Pulse Resp BP Pulse Ox 05/27/17 07:45 97.9 F 73 18 158/82 95 05/27/17 03:51 97.8 F 73 16 174/72 96 04/17/18 23:46 175/66 05/26/17 20:16 98.2 F 72 16 166/82 95 05/26/17 14:51 98.3 F 66 14 145/85 92 05/26/17 11:37 97.9 F 59 14 165/92 96 Intake and Output 05/26/17 05/27/17 05/27/17 23:59 07:59 15:59 Intake Total 1030 / 1030 900 / 900 Output Total 300 / 300 1050 / 1050 Balance 730 / 730 -150 / -150 Intake: IV Fluids 100 / 100 100 / 100 Zosyn 3.375 GM In 0.9 % Sodium 100 / 100 100 / 100 Chloride (Mini-Bag +) 100 ML @ 25 mls/hr IVPB Q12H [facility] Rx#: [id number] Oral 930 / 930 800 / 800 Output: Urine 300 / 300 1050 / 1050 Other: Meal Dinner Percent of Meal Consumed 100% Weight 149.6 kg Blood Glucose* 359 321 Patient Weight 05/27/17 23:59 Weight 149.6 kg - General Appearance Exam: Patient is alert and oriented. He is in no acute distress. Lungs Maisch breath sounds otherwise clear. Heart regular rate and rhythm with a 2/6 ejection murmur. Abdomen is obese otherwise benign. He does have some mild lower extremity swelling. There is a functioning AV fistula in the left upper extremity. - Lab 05/25/17 01:04 05/25/17 01:04 Most recent lab results Calcium 8.6 mg/dL (8.6-10.3) 05/25/17 01:04 Magnesium 1.7 mg/dL (1.6-2.6) 05/23/17 06:50 - VTE Documentation of Mechanical Device: Intermittent pneumatic compression device Consult Discharge Plan - Plan Referrals: Joan Lockhart [Primary Care Provider] -
[2017-05-27] MEDS: Piperacillin/Tazobactam 3.375 GM in 0.9 % Sodium Chloride Mini Bag 100 ML IVPB SCH (12:19)
--- NOTE | 2017-05-27 13:11 | Podiatry Progress Note ---
Date of Encounter: 05/27/17 Time of Encounter: 12:45 - Assessment and Plan (1) Diabetes mellitus Current Visit: No Status: Chronic Most recent blood sugar 312. Discussed importance of glucose control to promote wound healing. Qualifiers: Diabetes mellitus type: type 2 Diabetes mellitus adjunct faculty for medical terminology insulin use: with adjunct faculty for medical terminology use Diabetes mellitus complication status: with kidney complications Diabetes mellitus complication detail: with chronic kidney disease Chronic kidney disease stage: stage 4 (severe) Qualified Code(s): E11.22 - Type 2 diabetes mellitus with diabetic chronic kidney disease; N18.4 - Chronic kidney disease, stage 4 (severe); N18.4 - Chronic kidney disease, stage 4 (severe); N18.4 - Chronic kidney disease, stage 4 (severe); N18.4 - Chronic kidney disease, stage 4 (severe); Z79.4 - custodial (current) use of insulin; Z79.4 - custodial (current) use of insulin; Z79.4 - terminal supervisor (current) use of insulin; Z79.4 - terminal supervisor (current) use of insulin (2) Diabetic foot ulcer Current Visit: Yes Status: Acute Assessment: -Full thickness ulceration to sub #2 metatarsal head left foot, s/p excisional bedside debridement of ulceration to left foot by on 05/23/17. Clinically the ulceration does not look infected. - Left foot xray showed extensive forefoot soft tissue swelling. Unchanged joint destruction with next increased sclerosis and lucency in the left 1st metatarsal-phalangeal joint likely representing sequelae of prior osteomyelitis. No significant interval change to suggest superimposed active osteomyelitis. - Left foot MRI completed on 05/23/17, report showed nonspecific subcutaneous edema throughout the dorsal soft tissues of the foot with subcutaneous gas identified along the dorsal soft tissues adjacent to the 1st MTP joint. Findings compatible with soft tissue infection/ cellulitis. No organized drainable fluid collection identified. Chronic destructive changes of the 1st MTP joint dating back to 2013. Findings compatible with sequela of remote/chronic osteomyelitis. There is also a small 1st MTP joint effusion. No significant surrounding osseous edema identified to suggest acute osteomyelitis. Postsurgical changes of 2nd metatarsal head resection and 5th to amputation with dorsal dislocations of the 2nd and 3rd digits. Diffuse intrinsic muscular edema. - Wound culture isolated Klebsiella oxytoca. Currently receiving Zosyn. -INR: 1.4 Plan: - Dr. Mc to plan for debridement of left foot ulcer in the OR on (). - Continue wound care as ordered. Dressing changed by nurse prior to my arrival. -Continue antibiotics. -NPO after midnight. Qualifiers: Diabetic foot ulcer location: other Diabetes mellitus type: type 2 Laterality: left Non-pressure ulcer stage: with fat layer exposed Qualified Code(s): E11.621 - Type 2 diabetes mellitus with foot ulcer; L97.522 - Non- pressure chronic ulcer of other part of left foot with fat layer exposed; L97.522 - Non-pressure chronic ulcer of other part of left foot with fat layer exposed; L97.522 - Non-pressure chronic ulcer of other part of left foot with fat layer exposed; L97.522 - Non-pressure chronic ulcer of other part of left foot with fat layer exposed (3) PVD (peripheral vascular disease) Current Visit: No Status: Chronic Subjective Interval history: Patient is sitting up in bed with dressing dry and intact to the left foot. Patient is s/p excisional bedside debridement of ulceration to left foot by Dr. Bill on 05/23/17. Cultures were obtained and isolated klebsiella oxytoca. Patient states he feels good and wants to go home and come back for surgery tomorrow. Patient is scheduled for dialysis later on today and is currently receiving Hydralazine for an elevated BP. After discussing plan of care with patient, he stated he was okay with staying in hospital tonight. Patient denies any fever or chills overnight. Objective - Vital Signs Vital Signs: Vital Signs Temp Pulse Resp BP Pulse Ox 05/27/17 12:15 98 F 63 14 182/99 96 05/27/17 07:45 97.9 F 73 18 158/82 95 05/27/17 03:51 97.8 F 73 16 174/72 96 05/26/17 23:46 175/66 05/26/17 20:16 98.2 F 72 16 166/82 95 05/26/17 14:51 98.3 F 66 14 145/85 92 Intake and Output 05/26/17 05/27/17 05/27/17 23:59 07:59 15:59 Intake Total 1030 / 1030 900 / 900 Output Total 300 / 300 1050 / 1050 225 / 225 Balance 730 / 730 -150 / -150 -225 / -225 Intake: IV Fluids 100 / 100 100 / 100 Zosyn 3.375 GM In 0.9 % Sodium 100 / 100 100 / 100 Chloride (Mini-Bag +) 100 ML @ 25 mls/hr IVPB Q12H [facility] Rx#: [id number] Oral 930 / 930 800 / 800 Output: Urine 300 / 300 1050 / 1050 225 / 225 Other: Meal Dinner Percent of Meal Consumed 100% Weight 149.6 kg Blood Glucose* 359 321 312 Patient Weight 05/27/17 23:59 Weight 149.6 kg - Exam Exam: General: A&O x3, calm and cooperative. Integument: Dressing dry and intact to the left foot, Alvin hose intact to the RLE. - Lab Result Diagrams: 05/25/17 01:04 05/25/17 01:04 Labs: Abnormal lab results RBC 3.75 M/mcL (4.19-5.50) L 05/25/17 01:04 Hgb 11.5 g/dL (12.9-16.9) L 05/25/17 01:04 Hct 34.5 % (37.5-50.1) L 05/25/17 01:04 PT 15.4 Seconds (9.4-12.1) H 05/27/17 05:41 APTT 47.3 Seconds (26.0-36.0) H 05/22/17 22:20 Sodium 134 mEq/L (136-145) L 05/25/17 01:04 BUN 53 mg/dL (6-20) H 05/25/17 01:04 Creatinine 3.29 mg/dL (0.70-1.30) H 05/25/17 01:04 Est GFR ( Amer) 24 (> 60) L 05/25/17 01:04 Est GFR (Non-Af Amer) 19 (> 60) L 05/25/17 01:04 Glucose 343 mg/dL (70-105) H 05/25/17 01:04 POC Glucose 312 mg/dL (70-99) H 05/27/17 12:04 Hemoglobin A1c 11.4 % (-5.6) H 05/23/17 06:50 Calculated Osmolality 306 (280-300) H 05/25/17 01:04 Total Bilirubin 1.1 mg/dL (0.3-1.0) H 05/23/17 06:50 Vancomycin Trough 24 mcg/mL (5-10) H 05/24/17 08:06 Microbiology, Last 48 Hours 05/23/17 11:30 Anaerobic Culture - Preliminary Left Foot - VTE Documentation of Mechanical Device: Intermittent pneumatic compression device Consult Discharge Plan - Plan Referrals: Joan Lockhart [Primary Care Provider] -
[2017-05-27] MEDS ORDERED: 0.9 % Sodium Chloride 1,000 ML ONE ×2 (14:05→14:23)
--- NOTE | 2017-05-27 15:35 | Internal Med Progress Note ---
Date of Encounter: 05/27/17 Time of Encounter: 15:33 - Assessment and plan (1) Sepsis Current Visit: Yes Status: Acute Assessment and plan: Continue Zosyn. Sepsis from left foot diabetic ulcer infection. Blood cultures are negative. Follow podiatry recommendations. Surgery tomorrow. Qualifiers: Sepsis type: sepsis due to unspecified organism Qualified Code(s): A41.9 - Sepsis, unspecified organism (2) Diabetic foot ulcer Current Visit: Yes Status: Acute Assessment and plan: Diabetic foot ulcer infection of the left foot. Wound culture growing Klebsiella. Currently patient is receiving Zosyn. Planned surgery tomorrow. We will follow surgical cultures. Qualifiers: Diabetic foot ulcer location: other Diabetes mellitus type: type 2 Laterality: left Non-pressure ulcer stage: with fat layer exposed Qualified Code(s): E11.621 - Type 2 diabetes mellitus with foot ulcer; L97.522 - Non- pressure chronic ulcer of other part of left foot with fat layer exposed; L97.522 - Non-pressure chronic ulcer of other part of left foot with fat layer exposed; L97.522 - Non-pressure chronic ulcer of other part of left foot with fat layer exposed; L97.522 - Non-pressure chronic ulcer of other part of left foot with fat layer exposed (3) Cellulitis Current Visit: Yes Status: Acute Assessment and plan: Improving (4) ESRD (end stage renal disease) on dialysis Current Visit: Yes Status: Chronic Assessment and plan: Nephrology following. Dialysis according to usual regimen. (5) Diabetes Current Visit: Yes Status: Chronic Assessment and plan: Blood sugars remain elevated. We will increase Levemir dosage to 75 units twice daily and also place patient on nutritional insulin coverage. Qualifiers: Diabetes mellitus type: type 1 Diabetes mellitus complication status: with skin complications Diabetes mellitus complication detail: with foot ulcer Qualified Code(s): E10.621 - Type 1 diabetes mellitus with foot ulcer; L97.509 - Non-pressure chronic ulcer of other part of unspecified foot with unspecified severity; L97.509 - Non-pressure chronic ulcer of other part of unspecified foot with unspecified severity; L97.509 - Non-pressure chronic ulcer of other part of unspecified foot with unspecified severity; L97.509 - Non-pressure chronic ulcer of other part of unspecified foot with unspecified severity (6) DVT prophylaxis Current Visit: Yes Status: Acute Assessment and plan: On Coumadin. - Time Spent With Patient Total time spent is greater than 50% in coordination of care (as documented) at patient's floor/unit and/or counseling patient: - Subjective Interval history: Patient is doing well. Wants to go home. Understands that he will need surgery prior to being discharged. Denies any new complaints at this time did receive gabapentin last night. No complications. - Constitutional Vitals: Temp Pulse Resp BP Pulse Ox 98 F 63 14 182/99 96 05/27/17 12:15 05/27/17 12:15 05/27/17 12:15 05/27/17 12:15 05/27/17 12:15 General appearance: Present: cooperative, mild distress, A&O X 3, pleasant, answers questions appropriately - Respiratory Respiratory exam: Present: CTAB. Absent: accessory muscle use, rales, rhonchi, wheezes - Cardiovascular Cardiovascular exam: Present: RRR, +S1, +S2. Absent: diastolic murmur, gallop, rubs, systolic murmur - GI/Abdominal GI/Abdominal exam: Present: normal bowel sounds, soft, no peritoneal signs. Absent: distended, tenderness - Extremities Exam Extremities exam: Present: warm, radial pulses palpable and symmetrical. Absent : calf tenderness, cyanotic, pedal edema Additional comments: Left foot ulcer currently bandaged. Nontender to palpation - Neurological Exam Neurological exam: Present: CN II-XII intact, oriented X3, no focal deficits. Absent: pronater drift, facial droop, speech deficit - Skin Skin exam: Present: dry, intact Internal Medicine: Result - Labs CBC & Chem 7: 05/25/17 01:04 05/25/17 01:04 - ABG Interpretation ABG results: PT/INR, D-dimer PT 15.4 Seconds (9.4-12.1) H 05/27/17 05:41 - VTE Documentation of Mechanical Device: Intermittent pneumatic compression device Consult Discharge Plan - Plan Referrals: Joan Lockhart [Primary Care Provider] -
[2017-05-27] MEDS ORDERED: *HR* Warfarin 10 MG TABLET PO ONE (18:00)
[2017-05-27] MEDS ORDERED: Warfarin perPT PO PRN (18:00)
--- NOTE | 2017-05-27 21:05 | Anesthesia Evaluation PreOp ---
Date of Encounter: 05/27/17 Time of Encounter: 21:02 - Past History Planned Operation: Left foot ostectomy, osteotomy, #3#4 metatarsal Cardiac History: [place] ( 2012s/p stent), HTN, Hyperlipidemia, Arrhythmia (hx of afib), Cardiac Surgery, Other (ECHO 2016 Impressions: LVEF 55-60%. Normal LV chamber size, wall thickness and function. Atypical septal motion consistent with bundle branch block. Normal left ventricular diastolic function. Grossly, mild to moderately dilated right ventricle with normal appearing function. Severely dilated left atrium. Moderately dilated right atrium. Mild mitral regurgitation. Moderate pulmonary hypertension. 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 ATTENDANT History: Denies Any Significant HX Other Medical History: Renal (ESRD on HD), Diabetes Type II, GERD, Other (BMI 43 , hx of DVT) Anesthesia History: No Prior Anesthetic Complications, Past Anesthesia (I and D R foot LUE AVF) Alcohol Use: none Drug use: none Medications and Allergies Allopurinol [Zyloprim 100 MG] 100 mg PO DAILY 05/23/17 [History] Aspirin Enteric Coated [Aspirin EC] 81 mg PO DAILY 05/23/17 [History] Calcium Acetate [Phos-LO] 1,334 mg PO TIDWM 05/23/17 [History] Ezetimibe [Zetia] 10 mg PO DAILY 05/23/17 [History] Folic Acid 1 mg PO DAILY 05/23/17 [History] Furosemide [Lasix] 40 mg PO BID 05/23/17 [History] Gemfibrozil [Lopid] 600 mg PO BIDWM 05/23/17 [History] Hydralazine HCl 50 mg PO BID 05/23/17 [History] Insulin Glargine,Hum.rec.anlog [Basaglar Kwikpen U-100] 60 unit SQ BID 05/23/17 [History] Insulin LISPRO [HumaLOG] 20 - 50 unit SQ TID PRN 05/23/17 [History] Levothyroxine [Synthroid] 200 mcg PO DAILY 05/23/17 [History] Metoprolol [Lopressor] 100 mg PO DAILY 05/23/17 [History] Rosuvastatin Calcium [Crestor] 40 mg PO DAILY 05/23/17 [History] Warfarin [Coumadin] 10 mg PO 1800 05/23/17 [History] 3 Allergy/AdvReac Type Severity Reaction Status Date / Time Iodinated Contrast- Oral and Allergy Swelling Verified 05/20/17 13:55 IV Dye of [Iodinated Contrast Media - Lip/Tongue/Throat Oral and] red dye Allergy Rash Verified 05/20/17 13:55 - Meds/Allergy Pre-op Review Medications Reviewed: Yes Allergies Reviewed: Yes Beta Blockers on Current Med List: Yes If Beta Blockers taken, Date/Time (Last Dose taken): 05/27/17 802am Anesthesia Results - Labs 05/25/17 01:04 05/25/17 01:04 Laboratory Tests 05/22/17 05/27/17 22:20 05:41 PT 15.4 H INR 1.4 APTT 47.3 H - Imaging EKG: report reviewed (SINUS RHYTHM MODERATE VOLTAGE CRITERIA FOR LVH, CONSIDER NORMAL VARIANT INFERIOR MYOCARDIAL INFARCTION, OF INDETERMINATE AGE POOR R WAVE PROGRESSION Electronically Signed On 05-23-2017 6:45:52 EDT by Paulo Baum) Anesthesia Exam Vital Signs/O2 Sat, Most Current Temp Pulse Resp BP Pulse Ox 98.1 F 70 15 174/79 96 05/27/17 20:14 05/27/17 20:14 05/27/17 20:14 05/27/17 20:14 05/27/17 20:14 Weight: 149kg - HEENT Pupil (Motor): Pupils equal, EOMI Mallampati: III Teeth: Edentulous Oral Opening: Greater than 3 - GRILL ATTENDANT LOC: Oriented GRILL ATTENDANT Motor: Normal RUE, Normal LUE, Normal RLE, Normal LLE, Normal Face GRILL ATTENDANT Sensory: Normal: RUE, LUE, RLE, LLE, Face - Cardiac Rhythm: Regular - Pulmonary Breath Sounds: bilateral Clear Respiratory Effort: Symmetrical Anesthesia Assess/Plan ASA Score: 4 Modified [place] Scale for Level of Consciousness: Cooperative, oriented, and tranquil Anesthetic Plan: MAC Monitoring Plan: Standard Monitors Recovery Plan: PACU
[2017-05-27] MEDS: Gabapentin 100 MG CAPSULE PO SCH (21:14)
[2017-05-28] MEDS: Piperacillin/Tazobactam 3.375 GM in 0.9 % Sodium Chloride Mini Bag 100 ML IVPB SCH ×3 (00:01→23:52)
[2017-05-28 05:53] LABS: INR 1.4; Prothrombin Time 15.2 Seconds (9.4-12.1)
[2017-05-28 05:53] LABS: Basophils # 0.1 K/mcL (0.0-0.2); Basophils % 0.8 %; Eosinophils # 0.5 K/mcL (0.0-0.6); Hematocrit 37.3 % (37.5-50.1); Hemoglobin 12.4 g/dL (12.9-16.9); Immature Granulocytes % 0.5 % (0-4); Lymphocytes # 1.6 K/mcL (0.6-4.6); Lymphocytes % 21.5 %; Mean Corpuscular HGB Conc 33.2 g/dL (31.6-35.5); Mean Corpuscular Hemoglobin 31.1 pg (28.0-33.3); Mean Corpuscular Volume 93.5 fL (83.0-100.0); Mean Platelet Volume 10.4 fL (9.4-12.4); Monocytes # 0.6 K/mcL (0.0-1.3); Monocytes % 7.8 %; Neutrophils # 4.7 K/mcL (1.6-8.9); Platelet Count 303 K/mcL (140-400); Red Blood Count 3.99 M/mcL (4.19-5.50); Red Cell Distribution Width 13.4 % (11.5-14.5); Segmented Neutrophils % 63.4 %
[2017-05-28 06:04] LABS: Potassium 4.5 mEq/L (3.5-5.1)
[2017-05-28] MEDS: Insulin LISPRO 300 UNITS/3 ML VIAL SQ SCH ×6 (08:07→17:48)
[2017-05-28] MEDS: Calcium Acetate 667 MG CAPSULE PO SCH ×3 (08:08→17:46)
[2017-05-28] MEDS: Folic Acid 1 MG TABLET PO SCH (08:09)
[2017-05-28] MEDS: Aspirin Enteric Coated 81 MG Tablet PO SCH (08:09)
[2017-05-28] MEDS: Insulin DETEMIR 100 UNIT/ML X5UNITS SQ SCH ×2 (08:09→23:50)
[2017-05-28] MEDS: hydrALAZINE 25 MG TABLET PO SCH ×3 (08:09→21:12)
[2017-05-28] MEDS: Metoprolol 100 MG TABLET PO SCH ×2 (08:09→13:53)
[2017-05-28] MEDS: amLODIPine 5 MG TABLET PO SCH ×2 (08:10→13:52)
[2017-05-28] MEDS: (Ezetimibe [Zetia] 10 MG) PO SCH (08:10)
[2017-05-28] MEDS ORDERED: *HR* Midazolam HCl 2 MG/2 ML VIAL ONE (08:29)
[2017-05-28] MEDS ORDERED: Propofol 500 MG/50 ML INFUS..BTL ONE (08:29)
[2017-05-28] MEDS ORDERED: *HR* FentaNYL (PF) 100 MCG/2 ML VIAL ONE (08:29)
[2017-05-28] MEDS ORDERED: Lidocaine -MPF 2% 2 ML VIAL ONE (08:29)
[2017-05-28] MEDS ORDERED: Ondansetron 4 MG/2 ML VIAL ONE (08:29)
[2017-05-28] MEDS ORDERED: Bupivacaine/Clonidine Syringe 1 EACH SYRINGE ONE (09:13)
[2017-05-28] MEDS ORDERED: *HR* Propofol 200 MG/20 ML VIAL IVP ONE (10:17)
[2017-05-28] MEDS ORDERED: Warfarin perPT PO PRN (11:15)
[2017-05-28] MEDS ORDERED: Dextrose Gel 15 GM/37.5 ML TUBE PO PRN ×4 (11:15)
[2017-05-28] MEDS ORDERED: 0.9 % Sodium Chloride 250 ML IVC PRN ×2 (11:15)
[2017-05-28] MEDS ORDERED: *HR* Dextrose 50 % in Water (Syg) 50 ML SYRINGE IVP PRN (11:15)
[2017-05-28] MEDS ORDERED: D5% in Water 1,000 ML IVC PRN (11:15)
[2017-05-28] MEDS ORDERED: Acetaminophen 325 MG TABLET PO PRN (11:15)
[2017-05-28] MEDS ORDERED: Naloxone 0.4 MG/ML INJ IVP PRN (11:15)
[2017-05-28] MEDS ORDERED: *HR* Metoprolol 5 MG/5 ML VIAL IVP PRN (14:41)
--- NOTE | 2017-05-28 14:49 | Internal Med Progress Note ---
Date of Encounter: 05/28/17 Time of Encounter: 14:48 - Assessment and plan (1) Sepsis Current Visit: Yes Status: Acute Assessment and plan: Due to left foot diabetic ulcer. With Klebsiella oxytoca in wound culture. Continue Zosyn. Surgery completed today. We will follow up pathology results. Qualifiers: Sepsis type: sepsis due to unspecified organism Qualified Code(s): A41.9 - Sepsis, unspecified organism (2) Diabetic foot ulcer Current Visit: Yes Status: Acute Assessment and plan: Status post surgery today. Qualifiers: Diabetic foot ulcer location: other Diabetes mellitus type: type 2 Laterality: left Non-pressure ulcer stage: with fat layer exposed Qualified Code(s): E11.621 - Type 2 diabetes mellitus with foot ulcer; L97.522 - Non- pressure chronic ulcer of other part of left foot with fat layer exposed; L97.522 - Non-pressure chronic ulcer of other part of left foot with fat layer exposed; L97.522 - Non-pressure chronic ulcer of other part of left foot with fat layer exposed; L97.522 - Non-pressure chronic ulcer of other part of left foot with fat layer exposed (3) Cellulitis Current Visit: Yes Status: Acute Assessment and plan: Improving overall (4) ESRD (end stage renal disease) on dialysis Current Visit: Yes Status: Chronic Assessment and plan: Continue dialysis per nephrology recommendations (5) Diabetes Current Visit: Yes Status: Chronic Assessment and plan: Blood sugars are better controlled since last night. We will continue to monitor and adjust insulin regimen if they start to rise again as patient eats. Continue diabetic diet. Qualifiers: Diabetes mellitus type: type 1 Diabetes mellitus complication status: with skin complications Diabetes mellitus complication detail: with foot ulcer Qualified Code(s): E10.621 - Type 1 diabetes mellitus with foot ulcer; L97.509 - Non-pressure chronic ulcer of other part of unspecified foot with unspecified severity; L97.509 - Non-pressure chronic ulcer of other part of unspecified foot with unspecified severity; L97.509 - Non-pressure chronic ulcer of other part of unspecified foot with unspecified severity; L97.509 - Non-pressure chronic ulcer of other part of unspecified foot with unspecified severity (6) DVT prophylaxis Current Visit: Yes Status: Acute Assessment and plan: On Coumadin. Continue. INR is subtherapeutic. We will increase dosage this evening. - Time Spent With Patient Total time spent is greater than 50% in coordination of care (as documented) at patient's floor/unit and/or counseling patient: - Subjective Interval history: Patient went for surgery this morning. Doing well post procedure. Denies any new complaints at this time. Has some discomfort when he puts any pressure in his left foot. Otherwise no pain. - Constitutional Vitals: Temp Pulse Resp BP Pulse Ox 97.5 F L 86 16 193/74 94 05/28/17 13:30 05/28/17 13:30 05/28/17 13:30 05/28/17 13:30 05/28/17 13:30 General appearance: Present: cooperative, mild distress, A&O X 3, pleasant, answers questions appropriately - Respiratory Respiratory exam: Present: CTAB. Absent: accessory muscle use, rales, rhonchi, wheezes - Cardiovascular Cardiovascular exam: Present: RRR, +S1, +S2. Absent: diastolic murmur, gallop, rubs, systolic murmur - GI/Abdominal GI/Abdominal exam: Present: normal bowel sounds, soft, no peritoneal signs. Absent: distended, tenderness - Extremities Exam Extremities exam: Present: warm, radial pulses palpable and symmetrical. Absent : calf tenderness, cyanotic, pedal edema Additional comments: Left lower extremity bandaged up to the lower leg. Status post surgery. - Neurological Exam Neurological exam: Present: alert, oriented X3, no focal deficits. Absent: facial droop, speech deficit - Skin Skin exam: Present: dry, intact Internal Medicine: Result - Labs CBC & Chem 7: 05/28/17 04:00 05/28/17 04:00 Labs: Short CBC 05/28/17 Range/Units 04:00 WBC 7.5 (4.3-11.1) K/mcL Hgb 12.4 L (12.9-16.9) g/dL Hct 37.3 L (37.5-50.1) % Plt Count 303 (140-400) K/mcL Neutrophils # 4.7 (1.6-8.9) K/mcL BMP 05/28/17 04:00 Sodium 139 Potassium 4.5 Chloride 100 Carbon Dioxide 29 BUN 38 H Creatinine 2.67 H Glucose 191 H Calcium 9.0 - ABG Interpretation ABG results: PT/INR, D-dimer PT 15.2 Seconds (9.4-12.1) H 05/28/17 05:30 - VTE Documentation of Mechanical Device: Graduated compression elastic hosiery Consult Discharge Plan - Plan Referrals: Joan Lockhart [Primary Care Provider] -
--- NOTE | 2017-05-28 15:38 | Orthopedic Operative Note ---
Date of procedure: 05/28/17 Pre-op diagnosis: #1 ulcer plantar third MTPJ left foot. #2 prominent fourth MT head left Post-op diagnosis: same Procedure: 05/28/17 15:36 #1 osteotomy #4 metatarsal left foot #2 resection of third metatarsal head with excision of ulceration left foot Implants: None Anesthesia: MAC, local Local Anesthetics: 0.25% Sensorcaine HCL SubQ (cc) Surgeon: Rafael Mc Was there an medical assistant prn present: No Estimated blood loss (cc): 10 Tourniquet Time (Minutes): 0 Specimen: Ulcer left foot. Metatarsal head #3 left foot for culture Condition: stable Disposition: floor Procedure in Detail: 05/28/17 15:38 Details in summary of procedure: The patient was brought to surgical suite. A sign in procedure was performed. Patient was then transferred the surgical table and positioned properly safely and securely. No tourniquet was used. Anesthetic timeout was taken. The left ankle was then prepped with alcohol 3 times and ankle block was carried out without difficulty or complication. The left foot was then prepped and draped usual sterile manner. Surgical timeout was taken. Attention was turned to the fourth MTPJ dorsally where 2 linear incisions were made on either side of the surgical neck of the fourth metatarsal head. There are gently deepened through blunt dissection into the subcutaneous tissue using a iris scissor. That juncture a straight hemostat was then used to create a channel on the medial and lateral aspect of the surgical neck of the fourth metatarsal. A 571 bone forcep was then introduced which is oblique in nature. It was then saddled over the surgical neck and the osteotomy was then performed. The bone was divided cleanly. The distal head of the fourth metatarsal was noted to migrate proximally 4 mm dorsally. It was then impacted. Wound was flushed with copious amounts sterile saline and closure was uneventful using 3-0 Prolene. Prior to closure the wound was sprayed with platelet poor plasma and platelet rich plasma on either side of the osteotomy. Attention was then turned to the plantar aspect of left foot with a skin OpSite was placed prior to incision and directly immediately after prepping. It was removed. Plantar aspect of left foot was then preprepped with alcohol and Betadine. Ulceration on the plantar aspect of the third metatarsal head was noted to be approximately 1.2 cm in diameter. At that juncture to 5 cm semielliptical incisions were placed encompassing the lesion from distal to proximal. The ulcer was excised in toto to level subcutaneous tissue. Gentle retraction the capsular structure was noted of the third MTPJ. Capsule was then incised and the third metatarsal head was exposed into the wound and resected from a plantar to dorsal attitude using a command power saw. Remaining distal metatarsal was remodeled using a Cristian nasal rasp. The wound was flushed with copious amounts sterile saline. Finding no bone chips or debris no active bleeding the capsular structures were oversewn with 3-0 Vicryl. Small venous structures were judiciously bovied as necessary subcutaneous tissue was reapproximated using 3-0 Vicryl and skin repaired with 20 with 3-0 Prolene. This was all performed without tension. Wounds were dressed with Adaptic 4 x 4's Kerlix and Carlitos wraps. Capillary rebound time is less than 3 seconds to all toes after close the procedure. Estimated blood loss was less than 10 mL complications encountered none patient was sent to the holding room and then onto the floor in good condition with vital signs stable. 06/03/17 11:53
[2017-05-28] MEDS ORDERED: *HR* Warfarin 3 MG TABLET PO ONE (18:00)
[2017-05-28] MEDS ORDERED: Insulin LISPRO 300 UNITS/3 ML VIAL SQ SCH (21:00)
[2017-05-28] MEDS ORDERED: Gabapentin 100 MG CAPSULE PO SCH (21:00)
[2017-05-29 05:13] LABS: Basophils % 0.6 %; Eosinophils # 0.3 K/mcL (0.0-0.6); Eosinophils % 5.1 %; Immature Granulocytes % 0.3 % (0-4); Lymphocytes # 1.3 K/mcL (0.6-4.6); Lymphocytes % 19.4 %; Mean Corpuscular HGB Conc 33.4 g/dL (31.6-35.5); Mean Corpuscular Hemoglobin 31.6 pg (28.0-33.3); Mean Corpuscular Volume 94.4 fL (83.0-100.0); Mean Platelet Volume 10.4 fL (9.4-12.4); Monocytes # 0.8 K/mcL (0.0-1.3); Monocytes % 11.5 %; Neutrophils # 4.2 K/mcL (1.6-8.9); Nucleated Red Blood Cells 0.3 /100 WBC (0); Platelet Count 258 K/mcL (140-400); Red Blood Count 3.39 M/mcL (4.19-5.50); Red Cell Distribution Width 13.4 % (11.5-14.5); Segmented Neutrophils % 63.1 %
[2017-05-29 05:15] LABS: Hemoglobin 10.7 g/dL (12.9-16.9)
[2017-05-29 05:17] LABS: INR 1.5; Prothrombin Time 15.8 Seconds (9.4-12.1)
[2017-05-29 05:31] LABS: Calcium 7.9 mg/dL (8.6-10.3); Potassium 4.3 mEq/L (3.5-5.1)
[2017-05-29] MEDS: amLODIPine 5 MG TABLET PO SCH (08:34)
[2017-05-29] MEDS: Calcium Acetate 667 MG CAPSULE PO SCH ×3 (08:34→17:45)
[2017-05-29] MEDS: hydrALAZINE 25 MG TABLET PO SCH ×2 (08:34→17:39)
[2017-05-29] MEDS: Piperacillin/Tazobactam 3.375 GM in 0.9 % Sodium Chloride Mini Bag 100 ML IVPB SCH ×2 (08:35→17:39)
[2017-05-29] MEDS: Insulin LISPRO 300 UNITS/3 ML VIAL SQ SCH ×3 (08:36→17:39)
[2017-05-29] MEDS: Metoprolol 100 MG TABLET PO SCH (08:38)
[2017-05-29] MEDS ORDERED: Folic Acid 1 MG TABLET PO SCH (09:00)
[2017-05-29] MEDS ORDERED: Metoprolol 100 MG TABLET PO SCH (09:00)
[2017-05-29] MEDS ORDERED: amLODIPine 5 MG TABLET PO SCH (09:00)
[2017-05-29] MEDS ORDERED: (Ezetimibe [Zetia] 10 MG) PO SCH (09:00)
[2017-05-29] MEDS ORDERED: Aspirin Enteric Coated 81 MG Tablet PO SCH (09:00)
[2017-05-29] MEDS ORDERED: 0.9 % Sodium Chloride 250 ML IVC PRN (09:59)
--- NOTE | 2017-05-29 09:59 | Nephrology Progress Note ---
Date of Encounter: 05/29/17 Time of Encounter: 09:58 - Assessment and Plan (1) ESRD (end stage renal disease) on dialysis Current Visit: Yes Status: Chronic The patient will undergo dialysis today on a 3K bath. Potassium is 4.3. 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; 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; Z79.4 - FDC (current) use of insulin; Z79.4 - FDC (current) use of insulin; Z99.2 - Dependence on renal dialysis (3) Diabetic foot ulcer Current Visit: Yes Status: Acute Qualifiers: Diabetic foot ulcer location: other Diabetes mellitus type: type 2 Laterality: left Non-pressure ulcer stage: with fat layer exposed Qualified Code(s): E11.621 - Type 2 diabetes mellitus with foot ulcer; L97.522 - Non- pressure chronic ulcer of other part of left foot with fat layer exposed; L97.522 - Non-pressure chronic ulcer of other part of left foot with fat layer exposed; L97.522 - Non-pressure chronic ulcer of other part of left foot with fat layer exposed; L97.522 - Non-pressure chronic ulcer of other part of left foot with fat layer exposed Subjective Interval history: Patient underwent surgery for diabetic foot ulcer yesterday. He reports no complaints today. White blood cell count is normal. He is scheduled for usual dialysis today. Objective - Vital Signs Vital signs: Vital Signs Temp Pulse Resp BP Pulse Ox 05/29/17 07:22 97.9 F 69 18 148/72 93 05/29/17 03:33 98.5 F 86 15 158/72 94 05/28/17 23:30 99.0 F 81 17 168/77 95 05/28/17 19:01 97.8 F 71 15 153/80 97 05/28/17 13:30 97.5 F L 86 16 193/74 94 05/28/17 12:50 97.5 F L 86 16 193/74 94 05/28/17 12:20 97.4 F L 78 16 173/83 97 05/28/17 11:40 97.5 F L 72 16 175/106 97 05/28/17 11:25 97.4 F L 80 14 174/101 97 05/28/17 11:10 97.3 F L 14 179/97 98 Intake and Output 05/28/17 05/29/17 05/29/17 23:59 07:59 15:59 Intake Total 340 / 340 1700 / 1700 Output Total 525 / 525 675 / 675 Balance -185 / -185 1025 / 1025 Intake: IV Fluids 100 / 100 100 / 100 Zosyn 3.375 GM In 0.9 % Sodium 100 / 100 100 / 100 Chloride (Mini-Bag +) 100 ML @ 25 mls/hr IVPB Q8HR [facility] Rx#: [id number] Oral 240 / 240 1600 / 1600 Output: Urine 525 / 525 675 / 675 Other: Meal Dinner Percent of Meal Consumed 100% Stool Size Large Stool Consistency formed Stool Color Brown Weight 150.6 kg Blood Glucose* 190 295 Patient Weight 05/29/17 23:59 Weight 150.6 kg - General Appearance Exam: Patient is alert and oriented. He is in no acute distress. Lung sounds otherwise clear. Heart regular rhythm with a 2/6 talk ejection murmur. Abdomen is benign. There is some mild lower extremity swelling. There is a functioning AV fistula in the left upper extremity. - Lab 05/29/17 04:00 05/29/17 04:40 Most recent lab results Calcium 7.9 mg/dL (8.6-10.3) L 05/29/17 04:40 Magnesium 1.7 mg/dL (1.6-2.6) 05/23/17 06:50 - VTE Documentation of Mechanical Device: Graduated compression elastic hosiery Consult Discharge Plan - Plan Referrals: Joan Lockhart [Primary Care Provider] -
[2017-05-29] MEDS ORDERED: 0.9 % Sodium Chloride 1,000 ML ONE (11:12)
--- NOTE | 2017-05-29 14:54 | Internal Med Progress Note ---
Date of Encounter: 05/29/17 Time of Encounter: 08:45 - Assessment and plan (1) Sepsis Current Visit: Yes Status: Acute Assessment and plan: Due to left foot Ulcer infection. Status post surgical resection of third metatarsal head and excision of ulceration posterior abdomen. Pathology results pending. Follow-up podiatry recommendations. Continue current antibiotics. Qualifiers: Sepsis type: sepsis due to unspecified organism Qualified Code(s): A41.9 - Sepsis, unspecified organism (2) Diabetic foot ulcer Current Visit: Yes Status: Acute Assessment and plan: Wound culture positive for Klebsiella. Qualifiers: Diabetic foot ulcer location: other Diabetes mellitus type: type 2 Laterality: left Non-pressure ulcer stage: with fat layer exposed Qualified Code(s): E11.621 - Type 2 diabetes mellitus with foot ulcer; L97.522 - Non- pressure chronic ulcer of other part of left foot with fat layer exposed; L97.522 - Non-pressure chronic ulcer of other part of left foot with fat layer exposed; L97.522 - Non-pressure chronic ulcer of other part of left foot with fat layer exposed; L97.522 - Non-pressure chronic ulcer of other part of left foot with fat layer exposed (3) Cellulitis Current Visit: Yes Status: Acute Assessment and plan: Improving (4) ESRD (end stage renal disease) on dialysis Current Visit: Yes Status: Chronic Assessment and plan: Patient to be dialyzed today. Nephrology following. (5) Diabetes Current Visit: Yes Status: Chronic Assessment and plan: Blood sugars elevated since after surgery. We will increase nutritional coverage to 10 units 3 times a day. Continue Levemir and sliding scale coverage. Qualifiers: Diabetes mellitus type: type 1 Diabetes mellitus complication status: with skin complications Diabetes mellitus complication detail: with foot ulcer Qualified Code(s): E10.621 - Type 1 diabetes mellitus with foot ulcer; L97.509 - Non-pressure chronic ulcer of other part of unspecified foot with unspecified severity; L97.509 - Non-pressure chronic ulcer of other part of unspecified foot with unspecified severity; L97.509 - Non-pressure chronic ulcer of other part of unspecified foot with unspecified severity; L97.509 - Non-pressure chronic ulcer of other part of unspecified foot with unspecified severity (6) DVT prophylaxis Current Visit: Yes Status: Acute Assessment and plan: On Coumadin. INR 1.5 today. - Time Spent With Patient Total time spent is greater than 50% in coordination of care (as documented) at patient's floor/unit and/or counseling patient: - Subjective Interval history: Patient continues to improve. Does have some pain at surgical site in left foot. No fever or chills reported overnight. No shortness of breath. No chest pain. - Constitutional Vitals: Temp Pulse Resp BP Pulse Ox 98.7 F 66 18 148/77 96 05/29/17 10:19 05/29/17 10:19 05/29/17 10:19 05/29/17 10:19 05/29/17 10:19 General appearance: Present: cooperative, mild distress, A&O X 3, pleasant, answers questions appropriately - Neck Neck exam general surgery: Present: supple, trachea midline. Absent: lymphadenopathy - Respiratory Respiratory exam: Present: CTAB. Absent: accessory muscle use, rales, rhonchi, wheezes - Cardiovascular Cardiovascular exam: Present: RRR, +S1, +S2. Absent: diastolic murmur, gallop, rubs, systolic murmur - GI/Abdominal GI/Abdominal exam: Present: normal bowel sounds, soft, no peritoneal signs. Absent: distended, tenderness - Extremities Exam Extremities exam: Present: tenderness (Left foot bandaged.), warm, radial pulses palpable and symmetrical. Absent: calf tenderness, cyanotic, pedal edema - Neurological Exam Neurological exam: Present: CN II-XII intact, oriented X3, no focal deficits. Absent: facial droop, speech deficit - Skin Skin exam: Present: dry, intact Internal Medicine: Result - Labs CBC & Chem 7: 05/29/17 04:00 05/29/17 04:40 Labs: Short CBC 05/29/17 Range/Units 04:00 WBC 6.6 (4.3-11.1) K/mcL Hgb 10.7 L D (12.9-16.9) g/dL Hct 32.0 L (37.5-50.1) % Plt Count 258 (140-400) K/mcL Neutrophils # 4.2 (1.6-8.9) K/mcL BMP 05/29/17 04:40 Sodium 135 L Potassium 4.3 Chloride 99 Carbon Dioxide 25 BUN 47 H Creatinine 3.39 H Glucose 363 H Calcium 7.9 L - ABG Interpretation ABG results: PT/INR, D-dimer PT 15.8 Seconds (9.4-12.1) H 05/29/17 04:40 - VTE Documentation of Mechanical Device: Graduated compression elastic hosiery Consult Discharge Plan - Plan Referrals: Joan Lockhart [Primary Care Provider] -
[2017-05-29] MEDS ORDERED: Insulin LISPRO 300 UNITS/3 ML VIAL SQ SCH (15:00)
--- NOTE | 2017-05-29 15:15 | Discharge Summary ---
- NOTES TO OUTPATIENT PROVIDER Notes to Outpatient Provider: Patient admitted here with left foot diabetic ulcer infection. Treated with IV antibiotics. Underwent debridement and amputation of third metatarsal head and excision of ulcer yesterday. Doing well postoperatively. Will be discharged today on oral antibiotics. Does not wish to go to group home. We will continue home health. Orders not resulted at time of discharge: Pending orders 05/22/17 11:30 Culture,Anaerobic [RM] Routine 05/28/17 10:28 Surgical Pathology [PTH] Routine Date of Encounter: 05/29/17 Time of Encounter: 15:09 - Discharge Diagnosis (1) Sepsis Priority: Primary Status: Acute Qualifiers: Sepsis type: sepsis due to unspecified organism Qualified Code(s): A41.9 - Sepsis, unspecified organism (2) Diabetic foot ulcer Priority: Secondary Status: Acute Qualifiers: Diabetic foot ulcer location: other Diabetes mellitus type: type 2 Laterality: left Non-pressure ulcer stage: with fat layer exposed Qualified Code(s): E11.621 - Type 2 diabetes mellitus with foot ulcer; L97.522 - Non- pressure chronic ulcer of other part of left foot with fat layer exposed; L97.522 - Non-pressure chronic ulcer of other part of left foot with fat layer exposed; L97.522 - Non-pressure chronic ulcer of other part of left foot with fat layer exposed; L97.522 - Non-pressure chronic ulcer of other part of left foot with fat layer exposed (3) Cellulitis Priority: Secondary Status: Acute (4) ESRD (end stage renal disease) on dialysis Priority: Secondary Status: Chronic (5) Diabetes Priority: Secondary Status: Chronic Qualifiers: Diabetes mellitus type: type 1 Diabetes mellitus complication status: with skin complications Diabetes mellitus complication detail: with foot ulcer Qualified Code(s): E10.621 - Type 1 diabetes mellitus with foot ulcer; L97.509 - Non-pressure chronic ulcer of other part of unspecified foot with unspecified severity; L97.509 - Non-pressure chronic ulcer of other part of unspecified foot with unspecified severity; L97.509 - Non-pressure chronic ulcer of other part of unspecified foot with unspecified severity; L97.509 - Non-pressure chronic ulcer of other part of unspecified foot with unspecified severity (6) DVT prophylaxis Priority: Secondary Status: Acute Hospital course: Mr. Oneal is a 57 year old male patient with a history of end-stage renal disease, diabetes mellitus, hypertension, chronic left foot diabetic ulcer who was hospitalized here after presenting with pain and swelling involving the left foot and toe. He was diagnosed with cellulitis and infection involving the left foot diabetic ulcer. He was started on antibiotics intravenously for this and podiatric was consulted. Podiatry evaluated the patient and debrided his wound at bedside. Wound cultures were sent and were positive for Klebsiella oxytoca. Patient's condition clinically improved. He then underwent osteotomy of fourth metatarsal of the left foot and resection of third metatarsal head with excision of left foot ulceration. He is doing well post surgery. Podiatry recommends that he be discharged home on oral antibiotics at this time. He was recommended placement to skilled rehabilitation but wishes to go home with home health and started. This will be provided for him to help with his wound care and healing. Patient did have difficult to control diabetes and his blood sugars have been consistently high but improved since hospitalization. He is strongly advised to remain compliant with his insulin regimen. He also had uncontrolled hypertension and amlodipine has been added to his antihypertensive medications. His blood pressure is now better controlled. He will be discharged on amlodipine in addition to his usual antihypertensive medications. The patient also received hemodialysis during his stay here according to his usual schedule. Discharge discussed with: patient, nurse, social work, case management - Time Spent with Patient Total time spent providing and/or coordinating discharge services: Greater than 30 minutes (45 min) - Discharge Medications Prescriptions: amLODIPine [Norvasc] 5 mg PO DAILY #30 tablet Collagenase Oint [Santyl] 1 appl TP DAILY #1 tube Doxycycline Hyclate 100 mg PO BID #20 capsule Gabapentin [Neurontin] 100 mg PO HS #30 capsule levoFLOXacin [Levaquin] 250 mg PO DAILY #10 tablet Warfarin [Coumadin] 2 mg PO 1800 #3 tablet Home Medications: Allopurinol [Zyloprim 100 MG] 100 mg PO DAILY 05/23/17 [History] Aspirin Enteric Coated [Aspirin EC] 81 mg PO DAILY 05/23/17 [History] Calcium Acetate [Phos-LO] 1,334 mg PO TIDWM 05/23/17 [History] Ezetimibe [Zetia] 10 mg PO DAILY 05/23/17 [History] Folic Acid 1 mg PO DAILY 05/23/17 [History] Furosemide [Lasix] 40 mg PO BID 05/23/17 [History] Gemfibrozil [Lopid] 600 mg PO BIDWM 05/23/17 [History] Hydralazine HCl 50 mg PO BID 05/23/17 [History] Insulin Glargine,Hum.rec.anlog [Basaglar Kwikpen U-100] 60 unit SQ BID 05/23/17 [History] Insulin LISPRO [HumaLOG] 20 - 50 unit SQ TID PRN 05/23/17 [History] Levothyroxine [Synthroid] 200 mcg PO DAILY 05/23/17 [History] Metoprolol [Lopressor] 100 mg PO DAILY 05/23/17 [History] Rosuvastatin Calcium [Crestor] 40 mg PO DAILY 05/23/17 [History] Warfarin [Coumadin] 10 mg PO 1800 05/23/17 [History] Collagenase Oint [Santyl] 1 appl TP DAILY #1 tube 05/29/17 [Rx] Doxycycline Hyclate 100 mg PO BID #20 capsule 05/29/17 [Rx] Gabapentin [Neurontin] 100 mg PO HS #30 capsule 05/29/17 [Rx] Warfarin [Coumadin] 2 mg PO 1800 #3 tablet 05/29/17 [Rx] amLODIPine [Norvasc] 5 mg PO DAILY #30 tablet 05/29/17 [Rx] levoFLOXacin [Levaquin] 250 mg PO DAILY #10 tablet 05/29/17 [Rx] Allergies/Adverse Reactions: 3 Allergy/AdvReac Type Severity Reaction Status Date / Time Iodinated Contrast- Oral and Allergy Swelling Verified 05/20/17 13:55 IV Dye of [Iodinated Contrast Media - Lip/Tongue/Throat Oral and] red dye Allergy Rash Verified 05/20/17 13:55 Date of admission: 05/23/17 03:42 Primary care physician: Joan Lockhart Consults: 05/23/17 04:00 Consult to Podiatry [CONS] Routine Consulting Provider: [facility] Reason for Consult: DFU Call Completed: No 05/25/17 09:00 Consult to Dialysis [CONS] ONCE 05/25/17 09:53 Consult to Invasive Line Access Team [CONS] Routine Reason for Consult: epiv Line Type: EPIV 05/27/17 09:00 Consult to Dialysis [CONS] ONCE 05/29/17 10:00 Consult to Dialysis [CONS] ONCE Discharging clinician: Ronn Mitchell Anticipated date of discharge: 05/29/17 - Constitutional Vitals: Temp Pulse Resp BP Pulse Ox 98.7 F 66 18 148/77 96 05/29/17 10:19 05/29/17 10:19 05/29/17 10:19 05/29/17 10:19 05/29/17 10:19 General appearance: Present: cooperative, mild distress, A&O X 3, pleasant, answers questions appropriately - Respiratory Respiratory exam: Present: CTAB. Absent: accessory muscle use, rales, rhonchi, wheezes - Cardiovascular Cardiovascular exam: Present: RRR, +S1, +S2. Absent: diastolic murmur, gallop, rubs, systolic murmur - GI/Abdominal GI/Abdominal exam: Present: normal bowel sounds, soft, no peritoneal signs. Absent: distended, tenderness - Extremities Exam Extremities exam: Present: warm, radial pulses palpable and symmetrical. Absent : calf tenderness, cyanotic, pedal edema Additional comments: left foot bandaged - Patient Status Disposition: Home Health Service Condition: Good Functional capacity at discharge: uses cane/walker Overall status at discharge: patient is progressing back to baseline - Discharge Instructions Follow Up With: Joan Lockhart [Primary Care Provider] - (in 1week) Rafael Mc DPM [Partnered Physician] - (in 1 week) - Diet and Activity Activity: as per physical therapy, increase activity as tolerated Diet: diabetic diet, low fat, low cholesterol, low salt diet - VTE Documentation of Mechanical Device: Graduated compression elastic hosiery
--- NOTE | 2017-05-29 15:22 | Physician Discharge Referral ---
Home Health/Hosp Referral Info Transfer to: Home Health Provider in Charge Post Discharge: PCP - Diagnosis (1) Sepsis Priority: Primary Status: Acute (2) Diabetic foot ulcer Priority: Secondary Status: Acute (3) Cellulitis Priority: Secondary Status: Acute (4) ESRD (end stage renal disease) on dialysis Priority: Secondary Status: Chronic (5) Diabetes Priority: Secondary Status: Chronic (6) DVT prophylaxis Priority: Secondary Status: Acute - Respiratory Orders Smoking Cessation: Smoking cessation has been advised. For more information, call the [place] [employer] Quit Line at [phone]. - Diet/Nutrition Diet/Nutrition Orders: Cardiac, No Concentrated Sweets (diabetic) - Activity Activity Orders: Walker - Services Needed Following services are medically necessary services: Nursing, Physical Therapy, Occupational Therapy Home Care Orders: Wound care daily with santyl, saline, 4x4 gauze, kerlix, shannon - Transfer Medications Prescriptions: amLODIPine [Norvasc] 5 mg PO DAILY #30 tablet Collagenase Oint [Santyl] 1 appl TP DAILY #1 tube Doxycycline Hyclate 100 mg PO BID #20 capsule Gabapentin [Neurontin] 100 mg PO HS #30 capsule levoFLOXacin [Levaquin] 250 mg PO DAILY #10 tablet Warfarin [Coumadin] 2 mg PO 1800 #3 tablet Home Medications: Allopurinol [Zyloprim 100 MG] 100 mg PO DAILY 05/23/17 [History] Aspirin Enteric Coated [Aspirin EC] 81 mg PO DAILY 05/23/17 [History] Calcium Acetate [Phos-LO] 1,334 mg PO TIDWM 05/23/17 [History] Ezetimibe [Zetia] 10 mg PO DAILY 05/23/17 [History] Folic Acid 1 mg PO DAILY 05/23/17 [History] Furosemide [Lasix] 40 mg PO BID 05/23/17 [History] Gemfibrozil [Lopid] 600 mg PO BIDWM 05/23/17 [History] Hydralazine HCl 50 mg PO BID 05/23/17 [History] Insulin Glargine,Hum.rec.anlog [Basaglar Kwikpen U-100] 60 unit SQ BID 05/23/17 [History] Insulin LISPRO [HumaLOG] 20 - 50 unit SQ TID PRN 05/23/17 [History] Levothyroxine [Synthroid] 200 mcg PO DAILY 05/23/17 [History] Metoprolol [Lopressor] 100 mg PO DAILY 05/23/17 [History] Rosuvastatin Calcium [Crestor] 40 mg PO DAILY 05/23/17 [History] Warfarin [Coumadin] 10 mg PO 1800 05/23/17 [History] Collagenase Oint [Santyl] 1 appl TP DAILY #1 tube 05/29/17 [Rx] Doxycycline Hyclate 100 mg PO BID #20 capsule 05/29/17 [Rx] Gabapentin [Neurontin] 100 mg PO HS #30 capsule 05/29/17 [Rx] Warfarin [Coumadin] 2 mg PO 1800 #3 tablet 05/29/17 [Rx] amLODIPine [Norvasc] 5 mg PO DAILY #30 tablet 05/29/17 [Rx] levoFLOXacin [Levaquin] 250 mg PO DAILY #10 tablet 05/29/17 [Rx] Allergies/Adverse Reactions: 3 Allergy/AdvReac Type Severity Reaction Status Date / Time Iodinated Contrast- Oral and Allergy Swelling Verified 05/20/17 13:55 IV Dye of [Iodinated Contrast Media - Lip/Tongue/Throat Oral and] red dye Allergy Rash Verified 05/20/17 13:55 Certification: Further, I certify that my clinical findings support that this patient is homebound (i.e. absences from home require considerable and taxing effort and are for medical reasons or voodoo services or infrequently or short duration when for other reasons) because: Homebound Reason: Patient requires assistance of a person or device to safely leave home, Post-surgery restriction and or conditions limit ability to leave home Attestation: My signature below is to certify that this patient is under my care and that I, or nurse practitioner, or a physician's economist research assistant working with me, has a face-to -face encounter with this patient.
[2017-05-29 17:20] VITALS: BP 139/74
--- NOTE | 2017-05-29 17:30 | Podiatry Progress Note ---
Date of Encounter: 05/29/17 Time of Encounter: 17:00 - Assessment and Plan (1) Type 2 diabetes mellitus with foot ulcer Status: Acute Assessment: Day 1 s/p #1) osteotomy #4 metatarsal left foot #2 resection of third metatarsal head with excision of ulceration left foot Plan: Ok to discharge if medically stable Will need post operative shoe to bedside Spoke with nurse to order Discharge home on oral antibiotics Elevate as much as possible Very limited weight wearing Tight glucose control Leave dressing intact Will need follow up appointment in wound care clinic with next thursday Call with any fevers, chills, n/v or flu like symptoms. Qualifiers: Diabetes mellitus halfway insulin use: with halfway use Qualified Code( s): E11.621 - Type 2 diabetes mellitus with foot ulcer; L97.509 - Non-pressure chronic ulcer of other part of unspecified foot with unspecified severity; L97.509 - Non-pressure chronic ulcer of other part of unspecified foot with unspecified severity; L97.509 - Non-pressure chronic ulcer of other part of unspecified foot with unspecified severity; L97.509 - Non-pressure chronic ulcer of other part of unspecified foot with unspecified severity; Z79.4 - custodial (current) use of insulin; Z79.4 - custodial (current) use of insulin; Z79.4 - custodial (current) use of insulin; Z79.4 - custodial (current) use of insulin Subjective Interval history: Patient is Day 1 s/p #1) osteotomy #4 metatarsal left foot #2 resection of third metatarsal head with excision of ulceration left foot Dressing clean dry and intact, patient resting comfortably in bed. Denies any pain at this time. Denies any fevers, chills, n/v or flu like symptoms. Denies any calf pain or SOB. Denies calf pain or sob. Objective - Vital Signs Vital Signs: Vital Signs Temp Pulse Resp BP Pulse Ox 05/29/17 16:30 97.7 F 18 139/74 05/29/17 16:00 133/65 05/29/17 15:45 128/70 05/29/17 15:30 129/69 05/29/17 15:15 130/70 05/29/17 15:00 124/68 05/29/17 14:45 134/71 05/29/17 14:30 134/73 05/29/17 14:15 123/68 05/29/17 14:00 133/70 05/29/17 13:45 134/70 05/29/17 13:30 134/71 05/29/17 13:15 135/74 05/29/17 13:00 138/71 05/29/17 12:45 146/71 05/29/17 12:30 154/76 05/29/17 12:15 172/78 05/29/17 12:00 97.4 F L 18 170/78 05/29/17 10:19 98.7 F 66 18 148/77 96 05/29/17 07:22 97.9 F 69 18 148/72 93 05/29/17 03:33 98.5 F 86 15 158/72 94 05/28/17 23:30 99.0 F 81 17 168/77 95 05/28/17 19:01 97.8 F 71 15 153/80 97 Intake and Output 05/29/17 05/29/17 05/29/17 07:59 15:59 23:59 Intake Total 1700 / 1700 600 / 600 Output Total 675 / 675 0 / 0 4600 / 4600 Balance 1025 / 1025 600 / 600 -4600 / -4600 Intake: IV Fluids 100 / 100 Zosyn 3.375 GM In 0.9 % Sodium 100 / 100 Chloride (Mini-Bag +) 100 ML @ 25 mls/hr IVPB Q8HR [facility] Rx#: [id number] Oral 1600 / 1600 0 / 0 Intake, Rinseback and Flushes 600 / 600 Output: Urine 675 / 675 0 / 0 0 / 0 Total Dialysis (HD) Output 4600 / 4600 Other: Weight 150.6 kg Blood Glucose* 295 236 163 Hemodialysis Net Fluid Removed 4319 4000 (mL) Patient Weight 05/29/17 23:59 Weight 150.6 kg - Exam Exam: General Examination: CONSTITUTIONAL: Alert, oriented, in no acute distress, non-toxic. EXTREMITIES: CFT 3 seconds all toes. Edema +1 and pedal pulses palpable. SKIN: Dressing left intact, no strikethrough drainage. Dressing CDI NEUROLOGIC: Neuropathic. Minimal sensation to moderate touch. No calf pain with manual compression. Movement intact to toes - Lab Result Diagrams: 05/29/17 04:00 05/29/17 04:40 Labs: Abnormal lab results RBC 3.39 M/mcL (4.19-5.50) L 05/29/17 04:00 Hgb 10.7 g/dL (12.9-16.9) L D 05/29/17 04:00 Hct 32.0 % (37.5-50.1) L 05/29/17 04:00 Nucleated RBCs/100 WBC 0.3 /100 WBC (0) H 05/29/17 04:00 PT 15.8 Seconds (9.4-12.1) H 05/29/17 04:40 APTT 47.3 Seconds (26.0-36.0) H 05/22/17 22:20 Sodium 135 mEq/L (136-145) L 05/29/17 04:40 BUN 47 mg/dL (6-20) H 05/29/17 04:40 Creatinine 3.39 mg/dL (0.70-1.30) H 05/29/17 04:40 Est GFR ( Amer) 23 (> 60) L 05/29/17 04:40 Est GFR (Non-Af Amer) 19 (> 60) L 05/29/17 04:40 Glucose 363 mg/dL (70-105) H 05/29/17 04:40 POC Glucose 295 mg/dL (70-99) H 05/29/17 07:25 Hemoglobin A1c 11.4 % (-5.6) H 05/23/17 06:50 Calculated Osmolality 307 (280-300) H 05/29/17 04:40 Calcium 7.9 mg/dL (8.6-10.3) L 05/29/17 04:40 Total Bilirubin 1.1 mg/dL (0.3-1.0) H 05/23/17 06:50 Vancomycin Trough 24 mcg/mL (5-10) H 05/24/17 08:06 - VTE Documentation of Mechanical Device: Graduated compression elastic hosiery Consult Discharge Plan - Plan Referrals: Rafael Mc DPM [Partnered Physician] - 06/05/17 8:00 am (in 1 week) Joan Lockhart [Primary Care Provider] - (in 1week) Prescriptions: amLODIPine [Norvasc] 5 mg PO DAILY #30 tablet Collagenase Oint [Santyl] 1 appl TP DAILY #1 tube Doxycycline Hyclate 100 mg PO BID #20 capsule Gabapentin [Neurontin] 100 mg PO HS #30 capsule levoFLOXacin [Levaquin] 250 mg PO DAILY #10 tablet Warfarin [Coumadin] 2 mg PO 1800 #3 tablet
[2017-05-29] MEDS: Insulin DETEMIR 100 UNIT/ML X5UNITS SQ SCH (17:34)
[2017-05-29] MEDS ORDERED: *HR* Warfarin 3 MG TABLET PO ONE (18:00)
== END 2017-05-29 18:55 | disposition home health service (06) | DRG 710 ==
LOC: 3NENU 21:32 → EMEROO 21:32 → 3NENU 05-23 01:00 → SUATTDRO 05-23 03:42 → 3ANU 05-25 14:53
PROVIDERS: ADMIT Internal Medicine; ATTEND Internal Medicine

== ENCOUNTER 2017-10-20 12:39 | Inpatient (IN) ==
--- NOTE | 2017-10-20 13:20 | Emergency Department Note ---
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 insulin use status Diabetes mellitus complication status: with skin complications Diabetes mellitus complication detail: with foot ulcer Qualified Code(s): E11.621 - Type 2 diabetes mellitus with foot ulcer Diabetic ulcer of right foot Qualifiers: Diabetic foot ulcer location: other Diabetes mellitus type: type 2 Non- pressure ulcer stage: with fat layer exposed Qualified Code(s): E11.621 - Type 2 diabetes mellitus with foot ulcer Disposition: Admitted As Inpatient Condition: Good Referrals: Joan Lockhart [Primary Care Provider] - Forms: ED Satisfaction Letter Time of Disposition: 14:21 General Adult HPI - General Chief complaint: ED Extremity Problem,Nontraumatic Stated complaint: Needs admitted having surgery tomorrow Time Seen by Provider: 10/20/17 12:48 Source: patient Limitations: no limitations Nursing Notes Reviewed: Yes Vital Signs Reviewed: Yes - History of Present Illness HPI Narrative: Male patient with a history of end-stage renal disease who is a dialysis patient also diabetic with history of atrial fibrillation and MR presenting to the emergency department requesting admission. He states that he has supposed to have surgery on his foot tomorrow by Dr. Cade. 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 His postop interval. He is presenting to emergency department after being sent from [facility] for admission to the hospital. He denies any fevers or chills. Denies any shortness of breath or chest pain. He does report a discharge to the right ankle around where the fixators are present. States this is been present and he sees wound care for this. Pain Scale: 6 - Related Data Home Medications Medication Instructions Recorded Confirmed Allopurinol [Zyloprim 100 MG] 100 mg PO DAILY 05/23/17 10/20/17 Aspirin Enteric Coated [Aspirin EC] 81 mg PO DAILY 05/23/17 10/20/17 Calcium Acetate [Phos-LO] 1,334 mg PO TIDWM 05/23/17 10/20/17 Ezetimibe [Zetia] 10 mg PO DAILY 05/23/17 10/20/17 Folic Acid 1 mg PO DAILY 05/23/17 10/20/17 Furosemide [Lasix] 40 mg PO BID 05/23/17 10/20/17 Gemfibrozil [Lopid] 600 mg PO BIDWM 05/23/17 10/20/17 Hydralazine HCl 50 mg PO BID 05/23/17 10/20/17 Levothyroxine [Synthroid] 200 mcg PO DAILY 05/23/17 10/20/17 Rosuvastatin Calcium [Crestor] 40 mg PO DAILY 05/23/17 10/20/17 Warfarin [Coumadin] 10 mg PO QPM 05/23/17 10/20/17 Gabapentin [Neurontin] 300 mg PO DAILY 09/02/17 10/20/17 Insulin Regular, Human [Humulin R 0 unit SQ TID PRN 09/02/17 10/20/17 U-500 Kwikpen] Metoprolol Succinate [Toprol Xl] 100 mg PO DAILY 09/02/17 10/20/17 Allergies Allergy/AdvReac Type Severity Reaction Status Date / Time Iodinated Contrast- Oral and Allergy Swelling Verified 10/14/17 15:40 IV Dye of [Iodinated Contrast Media - Lip/Tongue/Throat Oral and] red dye Allergy Rash Verified 10/14/17 15:40 All systems ED: reviewed and negative except as stated. Review of Systems: As Per HPI Constitutional: Denies: fever, chills Cardiovascular: Denies: chest pain Gastrointestinal: Reports: nausea (That he describes as feeling hungry.). Denies: vomiting Integumentary: Reports: lesions (to right ankle at the area that the fixators are present.) Past Medical History - Past Medical History Attestation: Yes The following information was validated with the patient. Source: patient, nursing notes reviewed Medical history: Reports: arthritis, atrial fibrillation, CHF, COPD, coronary artery disease, DVT, diabetes, dialysis, GERD, hyperlipidemia, hypertension, kidney stones, myocardial infarction, osteoporosis, peripheral artery disease, renal disease, thyroid disease, venous stasis, other Surgical history: Reports: other Psychiatric history: Reports: no psych history - Social History Smoking Status: Never smoker Smokeless Tobacco Status: No Alcohol use: Reports: none Drug use: Reports: none Physical Exam - General Limitations: no limitations General appearance: alert, in no apparent distress - Head Head exam: atraumatic, normocephalic, normal inspection - Eye Eye exam: Present: normal appearance, PERRL, EOMI - ENT ENT exam: normal exam, normal oropharynx, mucous membranes moist - Neck Neck exam: Present: normal inspection, full ROM, trachea midline - Chest Chest inspection: Present: normal inspection, symmetric chest wall rise - Respiratory Respiratory exam: Present: normal lung sounds bilaterally. Absent: respiratory distress, accessory muscle use - Cardiovascular Cardiovascular exam: Present: regular rate, normal rhythm, normal heart sounds - Abdominal Exam Abdominal exam: Present: soft, distention (Rounded). Absent: tenderness, guarding, rebound, rigidity, organomegaly - Extremities Exam Extremities exam: Present: pedal edema (Bilateral. Pitting to the barney area.), other (Skin changes consistent with peripheral artery disease.) - Expanded Upper Extremity Exam Shoulder exam: Present: normal inspection, full ROM Arm exam: Present: normal inspection, full ROM Elbow exam: Present: normal inspection, full ROM Forearm/Wrist exam: Present: normal inspection, full ROM Hand exam: Present: normal inspection, full ROM Vascular exam: Normal: capillary refill, radial pulse - Expanded Lower Extremity Exam Hip/Pelvis exam: Present: normal inspection, full ROM Upper leg exam: Present: normal inspection, full ROM Knee exam: Present: normal inspection, full ROM Lower leg exam: Present: normal inspection, full ROM Ankle exam: Present: other (External fixators to the right ankle. Sutures present to the medial aspect. Purulent discharge around the fixators more on the medial than the lateral aspect.) Neurovascular/Tendon exam: Absent: motor deficit, sensory deficit, tendon deficit - Back Exam Back exam: Present: normal inspection, full ROM. Absent: tenderness - Neurological Exam Neurological exam: Present: alert, oriented X3 - Psychiatric Psychiatric exam: Present: normal affect, normal mood - Skin Skin exam: Present: warm, dry, intact, normal color Course Course Narrative: Patient presenting to emergency department requesting admission for surgery tomorrow. We are continuing to contact Dr. Cade at this time to discuss the patient's course. - Reevaluation(s) Reevaluation #1: We will get basic labs on the patient as well as redress the patient's right foot wound. He does have a purulent discharge and a foul odor. He has good capillary refill. Patient states that his had this discharge for a while now. He is not febrile and not tachycardiac while here. He does complain of some nausea be states that this is actually due to him being hungry at this time. He has no other complaints at this time. He is a dialysis patient. He does see Dr. Humphreys for this. He was seen by Dr. De La Torre here in the hospital previously. We will admit to the hospital. - Consultations Consultation #1: I spoke with Dr Cade. He is requesting that we admit patient to the hospital. He is agreeable with flank and Dina for antibiotic options at this time. He does have plans to take the patient to the OR tomorrow. Time: 13:40 Consultation #2: I spoke with nephrology. They are aware that the Pt will be admitted and will need dialysis. Time: 13:49 Consultation #3: Hospitalist accepted Pt in stable condition. Time: 13:49 Vital Signs Temperature 97.8 F 10/20/17 12:45 Pulse Rate 71 10/20/17 12:45 Respiratory Rate 16 10/20/17 12:45 Blood Pressure 175/83 10/20/17 12:45 O2 Sat by Pulse Oximetry 97 10/20/17 12:45 Temperature 97.8 F 10/20/17 12:53 Pulse Rate 71 10/20/17 12:53 Respiratory Rate 16 10/20/17 12:53 Blood Pressure 175/83 10/20/17 12:53 O2 Sat by Pulse Oximetry 97 10/20/17 12:53 Oxygen Delivery Oxygen Delivery Room Air Medical Decision Making - Medical Records Medical records reviewed: Yes I reviewed the patient's medical records. - Lab Data Lab results reviewed: Yes I reviewed the patient's lab results. Result diagrams: 10/20/17 13:54 10/20/17 13:54 Lab Results 10/20/17 10/20/17 10/20/17 Range/Units 13:54 13:54 13:54 WBC 8.3 (4.3-11.1) K/mcL RBC 4.11 L (4.19-5.50) M/mcL Hgb 12.5 L (12.9-16.9) g/dL Hct 38.4 (37.5-50.1) % MCV 93.4 (83.0-100.0) fL MCH 30.4 (28.0-33.3) pg MCHC 32.6 (31.6-35.5) g/dL RDW 14.4 (11.5-14.5) % Plt Count 277 (140-400) K/mcL MPV 10.6 (9.4-12.4) fL Immature Gran % 0.4 (0-4) % Seg Neutrophils % 63.2 % Lymphocytes % 21.2 % Monocytes % 9.0 % Eosinophils % 5.6 % Basophils % 0.6 % Neutrophils # 5.2 (1.6-8.9) K/mcL Lymphocytes # 1.8 (0.6-4.6) K/mcL Monocytes # 0.7 (0.0-1.3) K/mcL Eosinophils # 0.5 (0.0-0.6) K/mcL Basophils # 0.1 (0.0-0.2) K/mcL PT 21.9 H (9.4-12.1) Seconds INR 1.9 Sodium 136 (136-145) mEq/L Potassium 4.3 (3.5-5.1) mEq/L Chloride 97 L (98-107) mEq/L Carbon Dioxide 29 (23-29) mEq/L BUN 53 H (6-20) mg/dL Creatinine 2.97 H (0.70-1.30) mg/dL Est GFR ( Amer) 26 L (> 60) Est GFR (Non-Af Amer) 22 L (> 60) BUN/Creatinine Ratio 18 (6-26) Glucose 388 H (70-105) mg/dL Calculated Osmolality 312 H (280-300) Calcium 9.7 (8.6-10.3) mg/dL Total Bilirubin 0.5 (0.3-1.0) mg/dL AST 19 (13-39) Units/L ALT 17 (7-52) Units/L Alkaline Phosphatase 101 (34-104) Units/L Serum Total Protein 7.8 (6.4-8.9) g/dL Albumin 4.3 (3.5-5.7) g/dL Globulin 3.5 (2.4-3.5) g/dL Albumin/Globulin Ratio 1.2 (1.1-2.2) - Radiology Data Radiology results reviewed: Yes I reviewed the patient's radiology results. I have reviewed the image and agree with the radiology results. Chest X-Ray 10/20/17 13:48 IMPRESSION: 1. No active pulmonary disease. D/ / Rafiq Garber MD / Rafiq Garber MD Interpreting Provider: Rafiq Garber MD - EKG Data EKG #1 EKG attestation: Yes I reviewed and interpreted this EKG. EKG results narrative: Normal sinus rhythm at a rate of 68. ME interval is 178. QRS duration is 105. QT is 425. QTC is 452. No signs of acute ischemia. No significant change from previous EKG dated 09/02/2017. Good R-wave progression. Attestation Statement - Attestation Attestation: I, Aldair Figueroa DO, examined this patient [id number] and my medical decision-making was reviewed with Dr. Riddhi Baez, Resident Physician. I agree with the documented findings, disposition and treatment plan as described except to the extent set forth below. Please see my progress notes for details.
[2017-10-20] MEDS ORDERED: Piperacillin/Tazobactam 3.375 GM in 0.9 % Sodium Chloride Mini Bag 100 ML IVPB ONE (13:34)
--- NOTE | 2017-10-20 14:12 | Nephrology Consult Note ---
Date of Encounter: 10/20/17 Time of Encounter: 14:06 Assessment and Plan (1) ESRD (end stage renal disease) on dialysis Current Visit: Yes Status: Acute Current regimen is MWF in [place] with Maureen. Last tx yesterday without complication. Plan for HD tomorrow. Strict I/O Avoid nephrotoxins and renal dose all medications. (2) Diabetes Current Visit: Yes Status: Chronic Per primary. 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 Bill - History of Present Illness Mr. Oneal is a 57 year old male with ESRD. Current regimen is MWF with Dr. Reddy in [place]. Last treatment was yesterday without complication. Dr. Bill encouraged patient to come in to ED today to go to the OR on 10/21/17 to his RLE. PMH: arthritis, atrial fibrillation, CHF, COPD, coronary artery disease, DVT, diabetes, dialysis, GERD, hyperlipidemia, hypertension, kidney stones, myocardial infarction, osteoporosis, peripheral artery disease, thyroid disease, venous stasis. Mr. Oneal a good historian. He reports he injured his right lower extremity 3-4 months ago while he was doing yard work. With his history of diabetes he has had several wounds and prior surgeries on his bilateral lower extremities with Dr. Mc and Dr. Cade. Denies chest pain shortness of breath nausea vomiting or diarrhea. He does live alone and mentioned it is hard for him to get all of his outside and inside work done. His last surgery and pin placement was 09/03/17. Will continue current HD regimen while inpatient. Will plan for HD tomorrow. Past Med Surg Social Fam HX - Past Medical History Medical history: arthritis, atrial fibrillation, CHF, COPD, coronary artery disease, DVT, diabetes, dialysis, GERD, hyperlipidemia, hypertension, kidney stones, myocardial infarction, osteoporosis, peripheral artery disease, renal disease, thyroid disease, venous stasis, other Additional medical history: CRF. hypothyroidism Psychiatric history: no psych history - Past Surgical History Surgical History: other Additional surgical history: left toe amputation 2004, right foot surgery 2017 - Social History Smoking Status: Never smoker Smokeless Tobacco Status: No Alcohol use: none Drug use: none - Family History Mother Adopted: No Family Member Ethnicity: Non- Living Status: Hx Family Cardiac Disorders: No Hx Family Respiratory Disorders: No Hx Family Cancer: Yes Hx Family GI Disorders: Yes Hx Family Endocrine Disorder: Yes Hx Family Neuromuscular Disorders: No Hx Family Neurologic Disorders: No Hx Family HEENT Disorders: No Hx Family Autoimmune Disorders: No Father Adopted: No Family Member Ethnicity: Non- Living Status: Hx Family Cardiac Disorders: No Hx Family Respiratory Disorders: Yes Hx Family Cancer: Yes Hx Family GI Disorders: No Hx Family Endocrine Disorder: Yes Hx Family Neuromuscular Disorders: No Hx Family Neurologic Disorders: No Hx Family HEENT Disorders: No Hx Family Autoimmune Disorders: No Medications and Allergies Allopurinol [Zyloprim 100 MG] 100 mg PO DAILY 05/23/17 [History] Aspirin Enteric Coated [Aspirin EC] 81 mg PO DAILY 05/23/17 [History] Calcium Acetate [Phos-LO] 1,334 mg PO TIDWM 05/23/17 [History] Ezetimibe [Zetia] 10 mg PO DAILY 05/23/17 [History] Folic Acid 1 mg PO DAILY 05/23/17 [History] Furosemide [Lasix] 40 mg PO BID 05/23/17 [History] Gemfibrozil [Lopid] 600 mg PO BIDWM 05/23/17 [History] Hydralazine HCl 50 mg PO BID 05/23/17 [History] Levothyroxine [Synthroid] 200 mcg PO DAILY 05/23/17 [History] Rosuvastatin Calcium [Crestor] 40 mg PO DAILY 05/23/17 [History] Warfarin [Coumadin] 10 mg PO QPM 05/23/17 [History] Gabapentin [Neurontin] 300 mg PO DAILY 09/02/17 [History] Insulin Regular, Human [Humulin R U-500 Kwikpen] 0 unit SQ TID PRN 09/02/17 [ History] Metoprolol Succinate [Toprol Xl] 100 mg PO DAILY 09/02/17 [History] 3 Allergy/AdvReac Type Severity Reaction Status Date / Time Iodinated Contrast- Oral and Allergy Swelling Verified 10/14/17 15:40 IV Dye of [Iodinated Contrast Media - Lip/Tongue/Throat Oral and] red dye Allergy Rash Verified 10/14/17 15:40 Review of Systems Constitutional: no chills, no fever(s) Cardiovascular: no chest pain, no dyspnea Gastrointestinal: no diarrhea, no nausea, no vomiting Exam - Vital Signs Vital signs: Initial Vital Signs Temp Pulse Resp BP Pulse Ox 97.8 F 71 16 175/83 97 10/20/17 12:45 10/20/17 12:45 10/20/17 12:45 10/20/17 12:45 10/20/17 12:45 Vital Signs - Last 8 Hours Temp Pulse Resp BP Pulse Ox 10/20/17 12:53 97.8 F 71 16 175/83 97 10/20/17 12:45 97.8 F 71 16 175/83 97 Intake and Output 10/19/17 10/20/17 10/20/17 23:59 07:59 15:59 Other: Weight 149.685 kg Patient Weight 10/20/17 23:59 Weight 149.685 kg - General Appearance General appearance: well-developed, well-nourished EENT: ATNC Neck: supple Respiratory: clear Cardiology: edema (Pitting edema noted to RLE. ), normal S1, normal S2 - Dialysis Access Dialysis Vascular Access: Arteriovenous Fistula thrill: Yes bruit: Yes Gastrointestinal: normoactive bowel sounds, no tenderness, no guarding Integumentary: no rash, warm and dry Neurologic: alert and oriented x3 Psychiatric: mood/affect appropriate, cooperative Results - Lab Results 10/20/17 13:54 Consult Discharge Plan - Plan Referrals: Joan Lockhart [Primary Care Provider] -
[2017-10-20 14:14] LABS: Basophils # 0.1 K/mcL (0.0-0.2); Basophils % 0.6 %; Eosinophils # 0.5 K/mcL (0.0-0.6); Eosinophils % 5.6 %; Hematocrit 38.4 % (37.5-50.1); Hemoglobin 12.5 g/dL (12.9-16.9); Immature Granulocytes % 0.4 % (0-4); Lymphocytes # 1.8 K/mcL (0.6-4.6); Lymphocytes % 21.2 %; Mean Corpuscular HGB Conc 32.6 g/dL (31.6-35.5); Mean Corpuscular Hemoglobin 30.4 pg (28.0-33.3); Mean Corpuscular Volume 93.4 fL (83.0-100.0); Mean Platelet Volume 10.6 fL (9.4-12.4); Monocytes # 0.7 K/mcL (0.0-1.3); Neutrophils # 5.2 K/mcL (1.6-8.9); Platelet Count 277 K/mcL (140-400); Red Blood Count 4.11 M/mcL (4.19-5.50); Red Cell Distribution Width 14.4 % (11.5-14.5); Segmented Neutrophils % 63.2 %
[2017-10-20] MEDS ORDERED: Acetaminophen 325 MG TABLET PO PRN (14:23)
[2017-10-20] MEDS ORDERED: traMADol 50 MG TABLET PO PRN (14:23)
[2017-10-20] MEDS ORDERED: Naloxone 0.4 MG/ML INJ IVP PRN (14:23)
[2017-10-20] MEDS ORDERED: *HR* OxyCODONE Immed Rel 5 MG TABLET PO PRN (14:23)
--- NOTE | 2017-10-20 14:34 | Emergency Department Note ---
Disposition Clinical Impression: ESRD (end stage renal disease) on dialysis Atrial fibrillation Qualifiers: Atrial fibrillation type: chronic Qualified Code(s): I48.2 - Chronic atrial fibrillation Foot fracture, right Qualifiers: Encounter type: initial encounter Fracture type: closed Qualified Code(s): S92.901A - Unspecified fracture of right foot, initial encounter for closed fracture Diabetes mellitus Qualifiers: Diabetes mellitus type: type 2 Diabetes mellitus alf insulin use: unspecified alf insulin use status Diabetes mellitus complication status: with skin complications Diabetes mellitus complication detail: with foot ulcer Qualified Code(s): E11.621 - Type 2 diabetes mellitus with foot ulcer Diabetic ulcer of right foot Qualifiers: Diabetic foot ulcer location: other Diabetes mellitus type: type 2 Non- pressure ulcer stage: with fat layer exposed Qualified Code(s): E11.621 - Type 2 diabetes mellitus with foot ulcer Disposition: Admitted As Inpatient Condition: Good Referrals: Joan Lockhart [Primary Care Provider] - Forms: ED Satisfaction Letter Time of Disposition: 14:51 General Adult HPI - General Chief complaint: ED Extremity Problem,Nontraumatic Stated complaint: Needs admitted having surgery tomorrow Time Seen by Provider: 10/20/17 12:48 Source: patient Limitations: no limitations - History of Present Illness Pain Scale: 6 - Related Data Home Medications Medication Instructions Recorded Confirmed Allopurinol [Zyloprim 100 MG] 100 mg PO DAILY 05/23/17 10/20/17 Aspirin Enteric Coated [Aspirin EC] 81 mg PO DAILY 05/23/17 10/20/17 Calcium Acetate [Phos-LO] 1,334 mg PO TIDWM 05/23/17 10/20/17 Ezetimibe [Zetia] 10 mg PO DAILY 05/23/17 10/20/17 Folic Acid 1 mg PO DAILY 05/23/17 10/20/17 Furosemide [Lasix] 40 mg PO BID 05/23/17 10/20/17 Gemfibrozil [Lopid] 600 mg PO BIDWM 05/23/17 10/20/17 Hydralazine HCl 50 mg PO BID 05/23/17 10/20/17 Levothyroxine [Synthroid] 200 mcg PO DAILY 05/23/17 10/20/17 Rosuvastatin Calcium [Crestor] 40 mg PO DAILY 05/23/17 10/20/17 Warfarin [Coumadin] 10 mg PO QPM 05/23/17 10/20/17 Gabapentin [Neurontin] 300 mg PO DAILY 09/02/17 10/20/17 Insulin Regular, Human [Humulin R 0 unit SQ TID PRN 09/02/17 10/20/17 U-500 Kwikpen] Metoprolol Succinate [Toprol Xl] 100 mg PO DAILY 09/02/17 10/20/17 Allergies Allergy/AdvReac Type Severity Reaction Status Date / Time Iodinated Contrast- Oral and Allergy Swelling Verified 10/14/17 15:40 IV Dye of [Iodinated Contrast Media - Lip/Tongue/Throat Oral and] red dye Allergy Rash Verified 10/14/17 15:40 Constitutional: Denies: fever, chills Cardiovascular: Denies: chest pain Gastrointestinal: Reports: nausea (That he describes as feeling hungry.). Denies: vomiting Integumentary: Reports: lesions (to right ankle at the area that the fixators are present.) Past Medical History - Past Medical History Medical history: Reports: arthritis, atrial fibrillation, CHF, COPD, coronary artery disease, DVT, diabetes, dialysis, GERD, hyperlipidemia, hypertension, kidney stones, myocardial infarction, osteoporosis, peripheral artery disease, renal disease, thyroid disease, venous stasis, other Surgical history: Reports: other Psychiatric history: Reports: no psych history - Social History Smoking Status: Never smoker Smokeless Tobacco Status: No Alcohol use: Reports: none Drug use: Reports: none Physical Exam - General Limitations: no limitations General appearance: alert, in no apparent distress Course Vital Signs Temperature 97.8 F 10/20/17 12:45 Pulse Rate 71 10/20/17 12:45 Respiratory Rate 16 10/20/17 12:45 Blood Pressure 175/83 10/20/17 12:45 O2 Sat by Pulse Oximetry 97 10/20/17 12:45 Temperature 97.8 F 10/20/17 12:53 Pulse Rate 71 10/20/17 12:53 Respiratory Rate 16 10/20/17 12:53 Blood Pressure 175/83 10/20/17 12:53 O2 Sat by Pulse Oximetry 97 10/20/17 12:53 Oxygen Delivery Oxygen Delivery Room Air Medical Decision Making - Lab Data Result diagrams: 10/20/17 13:54 10/20/17 13:54 Lab Results 10/20/17 10/20/17 10/20/17 Range/Units 13:54 13:54 13:54 WBC 8.3 (4.3-11.1) K/mcL RBC 4.11 L (4.19-5.50) M/mcL Hgb 12.5 L (12.9-16.9) g/dL Hct 38.4 (37.5-50.1) % MCV 93.4 (83.0-100.0) fL MCH 30.4 (28.0-33.3) pg MCHC 32.6 (31.6-35.5) g/dL RDW 14.4 (11.5-14.5) % Plt Count 277 (140-400) K/mcL MPV 10.6 (9.4-12.4) fL Immature Gran % 0.4 (0-4) % Seg Neutrophils % 63.2 % Lymphocytes % 21.2 % Monocytes % 9.0 % Eosinophils % 5.6 % Basophils % 0.6 % Neutrophils # 5.2 (1.6-8.9) K/mcL Lymphocytes # 1.8 (0.6-4.6) K/mcL Monocytes # 0.7 (0.0-1.3) K/mcL Eosinophils # 0.5 (0.0-0.6) K/mcL Basophils # 0.1 (0.0-0.2) K/mcL PT 21.9 H (9.4-12.1) Seconds INR 1.9 Sodium 136 (136-145) mEq/L Potassium 4.3 (3.5-5.1) mEq/L Chloride 97 L (98-107) mEq/L Carbon Dioxide 29 (23-29) mEq/L BUN 53 H (6-20) mg/dL Creatinine 2.97 H (0.70-1.30) mg/dL Est GFR ( Amer) 26 L (> 60) Est GFR (Non-Af Amer) 22 L (> 60) BUN/Creatinine Ratio 18 (6-26) Glucose 388 H (70-105) mg/dL Calculated Osmolality 312 H (280-300) Calcium 9.7 (8.6-10.3) mg/dL Total Bilirubin 0.5 (0.3-1.0) mg/dL AST 19 (13-39) Units/L ALT 17 (7-52) Units/L Alkaline Phosphatase 101 (34-104) Units/L Serum Total Protein 7.8 (6.4-8.9) g/dL Albumin 4.3 (3.5-5.7) g/dL Globulin 3.5 (2.4-3.5) g/dL Albumin/Globulin Ratio 1.2 (1.1-2.2) Attestation Statement - Attestation Attestation: I, Aldair Figueroa DO, examined this patient [id number] and my medical decision-making was reviewed with Dr. Riddhi Baez, Resident Physician. I agree with the documented findings, disposition and treatment plan as described except to the extent set forth below. Please see my progress notes for details. 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 Patient has a declining presentation of her right foot wound. That is requiring surgical intervention at this point. Is recommended come to the emergency room for evaluation and admission. Vital signs were initially stable. Labs including CBC chemistry as well as blood cultures were ordered at this time. The right wrist was contacted and recommended vancomycin and Zosyn. Patient otherwise denies chest pain shortness of breath headache vision changes nausea vomiting or diarrhea. No fevers but intermittent chills. He does have significant swelling to the right lower extremity currently drainage from the wound the metal is still protruding from the skin. He has no other abnormalities. Lungs are clear heart is regular abdomen is soft. Lower extremities the affected side in comparison the left that does appear to be at baseline for him. Admission process to be established. Hospitalist was contacted and given a detailed review the presentation symptoms and informed that we are still waiting for labs with the admission process is evident. They had no other concerns or issues this time. We will observe the patient here in the emergency room until the labs are resulted admission process is completed. See detailed documentation of the physical exam, medical intervention, medical decision-making and disposition in the resident physician's note. No critical care provider the patient's treatment course at this time.
[2017-10-20 14:36] LABS: Albumin 4.3 g/dL (3.5-5.7); Albumin/Globulin Ratio 1.2 (1.1-2.2); Bilirubin,Total 0.5 mg/dL (0.3-1.0); Calcium 9.7 mg/dL (8.6-10.3); Globulin 3.5 g/dL (2.4-3.5); Potassium 4.3 mEq/L (3.5-5.1); Total Protein 7.8 g/dL (6.4-8.9)
[2017-10-20 14:39] LABS: INR 1.9; Prothrombin Time 21.9 Seconds (9.4-12.1)
--- NOTE | 2017-10-20 17:07 | Internal Med History&Physical ---
Date of Encounter: 10/21/17 Time of Encounter: 17:00 Internal Medicine - H&P: HPI History of present illness: Mr. Oneal is a 57 year old male with history of diabetes, atrial fibrillation , DVTs on coumadin, heart failure, COPD, CKD on dialysis, and hypertension presented to the ED at request of Podiatry for admission. Patient has had trauma to his right foot with ankle fracture and is scheduled for surgery in 2 days. However, patient was having worsening of right foot wound where metal fixators are and swelling of right foot recently and therefore coming in today. On arrival to ED it was noted his right foot had foul odor and discharge. He is hemodynamically stable. He denies fevers/chills, nausea, vomiting. He does state there is worsening edema in his right foot. Patient WBC was within normal limit and was afebrile on admission. Blood cultures obtained and he was then placed on Vancomycin and Zosyn. Patient currently has no complaints. Past Med Surg Social Fam HX - Past Medical History Medical history: arthritis, atrial fibrillation, CHF, COPD, coronary artery disease, DVT, diabetes, dialysis, GERD, hyperlipidemia, hypertension, kidney stones, myocardial infarction, osteoporosis, peripheral artery disease, renal disease, thyroid disease, venous stasis, other Additional medical history: CRF. hypothyroidism Psychiatric history: no psych history - Past Surgical History Surgical History: other Additional surgical history: left toe amputation 2004, right foot surgery 2017 - Social History Smoking Status: Never smoker Smokeless Tobacco Status: No Alcohol use: none Drug use: none - Family History Mother Adopted: No Family Member Ethnicity: Non- Living Status: Hx Family Cardiac Disorders: No Hx Family Respiratory Disorders: No Hx Family Cancer: Yes Hx Family GI Disorders: Yes Hx Family Endocrine Disorder: Yes Hx Family Neuromuscular Disorders: No Hx Family Neurologic Disorders: No Hx Family HEENT Disorders: No Hx Family Autoimmune Disorders: No Father Adopted: No Family Member Ethnicity: Non- Living Status: Hx Family Cardiac Disorders: No Hx Family Respiratory Disorders: Yes Hx Family Cancer: Yes Hx Family GI Disorders: No Hx Family Endocrine Disorder: Yes Hx Family Neuromuscular Disorders: No Hx Family Neurologic Disorders: No Hx Family HEENT Disorders: No Hx Family Autoimmune Disorders: No Internal Medicine - H&P: Meds Allopurinol [Zyloprim 100 MG] 100 mg PO DAILY 05/23/17 [History] Aspirin Enteric Coated [Aspirin EC] 81 mg PO DAILY 05/23/17 [History] Calcium Acetate [Phos-LO] 1,334 mg PO TIDWM 05/23/17 [History] Ezetimibe [Zetia] 10 mg PO DAILY 05/23/17 [History] Folic Acid 1 mg PO DAILY 05/23/17 [History] Furosemide [Lasix] 40 mg PO BID 05/23/17 [History] Gemfibrozil [Lopid] 600 mg PO BIDWM 05/23/17 [History] Hydralazine HCl 50 mg PO BID 05/23/17 [History] Levothyroxine [Synthroid] 200 mcg PO DAILY 05/23/17 [History] Rosuvastatin Calcium [Crestor] 40 mg PO DAILY 05/23/17 [History] Warfarin [Coumadin] 10 mg PO QPM 05/23/17 [History] Gabapentin [Neurontin] 300 mg PO DAILY 09/02/17 [History] Insulin Regular, Human [Humulin R U-500 Kwikpen] 0 unit SQ TID PRN 09/02/17 [ History] Metoprolol Succinate [Toprol Xl] 100 mg PO DAILY 09/02/17 [History] 3 Allergy/AdvReac Type Severity Reaction Status Date / Time Iodinated Contrast- Oral and Allergy Swelling Verified 10/14/17 15:40 IV Dye of [Iodinated Contrast Media - Lip/Tongue/Throat Oral and] red dye Allergy Rash Verified 10/14/17 15:40 All Systems PM: A 10-system review of systems was performed and is negative for pertinent findings except as documented above in the HPI. Review of systems: As per HPI - Constitutional Vitals: Temp Pulse Resp BP Pulse Ox 97.8 F 65 16 141/70 98 10/20/17 12:53 10/20/17 16:12 10/20/17 16:12 10/20/17 16:12 10/20/17 16:12 Exam: NAD, AAOx3 - Head Head exam: Present: atraumatic, normocephalic - Eye Eye exam: Present: PERRL, conjuntiva pink, sclera anicteric Pupils: Present: PERRL - Neck Neck exam general surgery: Present: supple, trachea midline. Absent: lymphadenopathy - Respiratory Respiratory exam: Present: CTAB. Absent: accessory muscle use, rales, rhonchi, wheezes - Cardiovascular Cardiovascular exam: Present: RRR, +S1, +S2. Absent: diastolic murmur, gallop, rubs, systolic murmur - GI/Abdominal GI/Abdominal exam: Present: normal bowel sounds, soft, no peritoneal signs. Absent: distended, tenderness - Extremities Exam Extremities exam: Present: pedal edema (right foot), warm, radial pulses palpable and symmetrical. Absent: calf tenderness, cyanotic Additional comments: Right foot with edema, and some purulent discharge noted on where insertion of fixators are. - Neurological Exam Neurological exam: Present: CN II-XII intact, oriented X3, no focal deficits. Absent: pronater drift, facial droop, speech deficit - Skin Skin exam: Present: dry, intact Internal Med - H&P Results - Labs CBC & Chem 7: 10/21/17 06:11 10/21/17 06:11 - Assessment and plan (1) Nonhealing surgical wound Current Visit: No Status: Acute Assessment and plan: Podiatry consulted, recommendations appreciated Continue vancomycin/Zosyn Consult to wound care. Qualifiers: Encounter type: initial encounter Qualified Code(s): T81.89XA - Other complications of procedures, not elsewhere classified, initial encounter (2) Diabetic ulcer of right foot Current Visit: Yes Status: Acute Assessment and plan: Worsening ulcer per patient. Continue Vancomcyin and Zosyn Podiatry consulted, and aware of patient admission. Likely surgery tomorrow. Qualifiers: Diabetic foot ulcer location: other Diabetes mellitus type: type 2 Non- pressure ulcer stage: with fat layer exposed Qualified Code(s): E11.621 - Type 2 diabetes mellitus with foot ulcer; L97.512 - Non-pressure chronic ulcer of other part of right foot with fat layer exposed (3) ESRD (end stage renal disease) on dialysis Current Visit: Yes Status: Acute Assessment and plan: Nephrology consulted to resume HD per regular schedule. Scheduled for tomorrow. (4) Atrial fibrillation Current Visit: Yes Status: Chronic Assessment and plan: Continue metoprolol. On coumadin. Will hold tonights coumadin dose and monitor INR. Heparin SQ 5, 000 units BID for now. Will resume coumadin when okay with Podiatry. Qualifiers: Atrial fibrillation type: chronic Qualified Code(s): I48.2 - Chronic atrial fibrillation (5) Diabetes Current Visit: Yes Status: Chronic Assessment and plan: Patient takes Humuli R U-500 at home as prn. This may not be optimal for glucose control while admitted. Will place patient on sliding scale and basal insulin as Levemir 30 units BID. NPO at midnight. Will need to titrate basal insulin. He has had multiple times during admissions with glucose levels >400s. 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 transplanted heart: [place] heart Associated angina: without angina Qualified Code(s): I25.10 - Atherosclerotic heart disease of [place] coronary artery without angina pectoris (8) COPD (chronic obstructive pulmonary disease) Current Visit: No Status: Chronic Assessment and plan: No acute issues. Qualifiers: COPD type: unspecified COPD Qualified Code(s): J44.9 - Chronic obstructive pulmonary disease, unspecified (9) GERD (gastroesophageal reflux disease) Current Visit: No Status: Chronic Qualifiers: Esophagitis presence: esophagitis presence not specified Qualified Code(s) : K21.9 - Gastro-esophageal reflux disease without esophagitis (10) Hypertension Current Visit: No Status: Chronic Assessment and plan: Resume home meds: PO hydralazine, metoprolol Add IV hydralazine prn. Qualifiers: Hypertension type: essential hypertension Qualified Code(s): I10 - Essential (primary) hypertension (11) HLD (hyperlipidemia) Current Visit: No Status: Chronic Assessment and plan: Resume home medications. Qualifiers: Hyperlipidemia type: unspecified Qualified Code(s): E78.5 - Hyperlipidemia , unspecified (12) Hypothyroidism Current Visit: No Status: Chronic Assessment and plan: Resume levothyroxine. Qualifiers: Hypothyroidism type: unspecified Qualified Code(s): E03.9 - Hypothyroidism , unspecified (13) PETE (obstructive sleep apnea) Current Visit: No Status: Chronic (14) PVD (peripheral vascular disease) Current Visit: No Status: Chronic (15) History of DVT (deep vein thrombosis) Current Visit: Yes Status: Acute Assessment and plan: He is on coumadin. Will hold tonight and check INR in case he will undergo any procedure. Resume coumadin when okay with okay with Podiatry - Time Spent With Patient Total time spent is greater than 50% in coordination of care (as documented) at patient's floor/unit and/or counseling patient:
[2017-10-20] MEDS: Calcium Acetate 667 MG CAPSULE PO SCH (18:59)
[2017-10-20] MEDS ORDERED: Insulin LISPRO 300 UNITS/3 ML VIAL SQ SCH (21:00)
[2017-10-20] MEDS: *HR* Heparin 5,000 UNIT/ML VIAL SQ SCH (22:24)
[2017-10-20] MEDS: hydrALAZINE 25 MG TABLET PO SCH (22:25)
[2017-10-20] MEDS: Furosemide 40 MG TABLET PO SCH (22:25)
[2017-10-20] MEDS: Insulin DETEMIR 100 UNIT/ML X5UNITS SQ SCH (22:28)
[2017-10-21] MEDS ORDERED: Piperacillin/Tazobactam 3.375 GM in 0.9 % Sodium Chloride Mini Bag 100 ML IVPB SCH (04:00)
[2017-10-21] MEDS: *HR* Heparin 5,000 UNIT/ML VIAL SQ SCH ×2 (06:23→16:57)
[2017-10-21 06:35] LABS: Basophils # 0.1 K/mcL (0.0-0.2); Basophils % 0.8 %; Eosinophils # 0.6 K/mcL (0.0-0.6); Eosinophils % 7.2 %; Hematocrit 36.3 % (37.5-50.1); Hemoglobin 11.9 g/dL (12.9-16.9); Immature Granulocytes % 0.4 % (0-4); Lymphocytes # 1.7 K/mcL (0.6-4.6); Lymphocytes % 22.7 %; Mean Corpuscular HGB Conc 32.8 g/dL (31.6-35.5); Mean Corpuscular Hemoglobin 30.4 pg (28.0-33.3); Mean Corpuscular Volume 92.8 fL (83.0-100.0); Mean Platelet Volume 10.5 fL (9.4-12.4); Monocytes # 0.7 K/mcL (0.0-1.3); Monocytes % 8.5 %; Neutrophils # 4.6 K/mcL (1.6-8.9); Platelet Count 257 K/mcL (140-400); Red Blood Count 3.91 M/mcL (4.19-5.50); Red Cell Distribution Width 14.5 % (11.5-14.5); Segmented Neutrophils % 60.4 %
[2017-10-21 06:39] LABS: INR 1.5; Prothrombin Time 17.1 Seconds (9.4-12.1)
[2017-10-21 06:55] LABS: Calcium 9.2 mg/dL (8.6-10.3); Potassium 4.9 mEq/L (3.5-5.1)
[2017-10-21] MEDS ORDERED: 0.9 % Sodium Chloride 1,000 ML PRIME SCH ×2 (07:45→15:37)
[2017-10-21] MEDS ORDERED: 0.9 % Sodium Chloride 250 ML IVC PRN ×2 (07:45→15:37)
[2017-10-21] MEDS: Calcium Acetate 667 MG CAPSULE PO SCH ×3 (07:51→16:57)
[2017-10-21] MEDS ORDERED: Insulin LISPRO 300 UNITS/3 ML VIAL SQ SCH ×3 (08:00→08:09)
[2017-10-21] MEDS ORDERED: Aspirin Enteric Coated 81 MG Tablet PO SCH (09:00)
[2017-10-21] MEDS ORDERED: Gabapentin 300 MG CAPSULE PO SCH (09:00)
[2017-10-21] MEDS ORDERED: Folic Acid 1 MG TABLET PO SCH (09:00)
[2017-10-21] MEDS ORDERED: Metoprolol XL (24 HR) Succ 50 MG TAB.ER.24H PO SCH (09:00)
--- NOTE | 2017-10-21 09:36 | Podiatry Progress Note ---
Date of Encounter: 10/21/17 Time of Encounter: 00:00 - Assessment and Plan (1) Closed dislocation of navicular bone of right foot Current Visit: Yes Status: Acute to OR this afternoon for removal of ex-fix and possible midfoot arthrodesis. NPO. Qualifiers: Encounter type: subsequent encounter Qualified Code(s): S93.314D - Dislocation of tarsal joint of right foot, subsequent encounter Objective - Vital Signs Vital Signs: Vital Signs Temp Pulse Resp BP Pulse Ox 10/21/17 07:14 99.0 F 68 18 154/80 96 10/21/17 03:52 98 F 73 16 142/81 97 10/21/17 00:30 98.2 F 84 16 168/84 97 10/20/17 22:47 94 10/20/17 17:51 97.9 F 65 18 170/96 94 10/20/17 16:12 65 16 141/70 98 Intake and Output 10/20/17 10/21/17 10/21/17 23:59 07:59 15:59 Intake Total 100 / 100 0 / 0 Output Total 350 / 350 Balance 100 / 100 -350 / -350 0 / 0 Intake: IV Fluids 100 / 100 Zosyn 3.375 GM In 0.9 % Sodium 100 / 100 Chloride (Mini-Bag +) 100 ML @ 25 mls/hr IVPB ONCE ONE Rx#: [id number] Oral 0 / 0 Output: Urine 350 / 350 Other: Meal NPO Percent of Meal Consumed 0% Weight 149 kg 150 kg Blood Glucose* 316 306 252 Patient Weight 10/21/17 23:59 Weight 150 kg - Lab Result Diagrams: 10/21/17 06:11 10/21/17 06:11 Labs: Abnormal lab results RBC 3.91 M/mcL (4.19-5.50) L 10/21/17 06:11 Hgb 11.9 g/dL (12.9-16.9) L 10/21/17 06:11 Hct 36.3 % (37.5-50.1) L 10/21/17 06:11 PT 17.1 Seconds (9.4-12.1) H 10/21/17 06:11 BUN 59 mg/dL (6-20) H 10/21/17 06:11 Creatinine 3.07 mg/dL (0.70-1.30) H 10/21/17 06:11 Est GFR ( Amer) 25 (> 60) L 10/21/17 06:11 Est GFR (Non-Af Amer) 21 (> 60) L 10/21/17 06:11 Glucose 319 mg/dL (70-105) H 10/21/17 06:11 POC Glucose 306 mg/dL (70-99) H 10/21/17 03:55 Calculated Osmolality 311 (280-300) H 10/21/17 06:11 Consult Discharge Plan - Plan Referrals: Joan Lockhart [Primary Care Provider] -
--- NOTE | 2017-10-21 09:54 | Nephrology Progress Note ---
Date of Encounter: 10/21/17 Time of Encounter: 09:52 - Assessment and Plan (1) ESRD (end stage renal disease) on dialysis Current Visit: Yes Status: Acute Current regimen is MWF in [place] with [facility]. HD in progress for today. Strict I/O Avoid nephrotoxins and renal dose all medications. Renal diet, when able to eat. (2) Diabetes Current Visit: Yes Status: Chronic Per primary. 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 Qualifiers: Encounter type: subsequent encounter Qualified Code(s): S93.314D - Dislocation of tarsal joint of right foot, subsequent encounter Subjective Principal diagnosis: OR this afternoon Interval history: Pt seen and examined during HD, tolerating well. Denies CP/SOB, nausea/vomiting/ diarrhea. Objective - Vital Signs Vital signs: Vital Signs Temp Pulse Resp BP Pulse Ox 10/21/17 07:14 99.0 F 68 18 154/80 96 10/21/17 03:52 98 F 73 16 142/81 97 10/21/17 00:30 98.2 F 84 16 168/84 97 10/20/17 22:47 94 10/20/17 17:51 97.9 F 65 18 170/96 94 10/20/17 16:12 65 16 141/70 98 Intake and Output 10/20/17 10/21/17 10/21/17 23:59 07:59 15:59 Intake Total 100 / 100 0 / 0 Output Total 350 / 350 Balance 100 / 100 -350 / -350 0 / 0 Intake: IV Fluids 100 / 100 Zosyn 3.375 GM In 0.9 % Sodium 100 / 100 Chloride (Mini-Bag +) 100 ML @ 25 mls/hr IVPB ONCE ONE Rx#: [id number] Oral 0 / 0 Output: Urine 350 / 350 Other: Meal NPO Percent of Meal Consumed 0% Weight 149 kg 150 kg Blood Glucose* 316 306 252 Patient Weight 10/21/17 23:59 Weight 150 kg - General Appearance General appearance: Present: well-developed, well-nourished EENT: Present: ATNC, hearing intact, vision intact Neck: Present: supple Respiratory: Present: clear Cardiology: Present: edema (+1 pitting edema noted to RLE.), normal S1, normal S2 Dialysis Vascular Access: Arteriovenous Fistula thrill: Yes bruit: Yes Gastrointestinal: Present: normoactive bowel sounds, no tenderness, no guarding Integumentary: Present: no rash, warm and dry Neurologic: Present: alert and oriented x3 Additional Comments: RLE noted to have external pins, BUDDY. Psychiatric: Present: mood/affect appropriate, cooperative - Lab 10/21/17 06:11 10/21/17 06:11 Most recent lab results Calcium 9.2 mg/dL (8.6-10.3) 10/21/17 06:11 Consult Discharge Plan - Plan Referrals: Joan Lockhart [Primary Care Provider] -
[2017-10-21] MEDS: Insulin DETEMIR 100 UNIT/ML X5UNITS SQ SCH (10:18)
[2017-10-21 10:27] LABS: Hepatitis B Surface Antigen Nonreactive (Nonreactive)
--- NOTE | 2017-10-21 11:07 | Internal Med Progress Note ---
<Osman Schaefer - Last Filed: 10/21/17 17:24> Hospitalist Progress Note - Encounter Date of Encounter: 10/21/17 Time of Encounter: 11:04 - Subjective Interval History: Patient seen and examined this morning, no acute events overnight Patient was admitted for possible infection of right foot external fixation hardware secondary to fracture Plan for dialysis and then surgery today Patient understood and agreed - Exam Vitals: Temp Pulse Resp BP Pulse Ox 97.8 F 68 15 131/89 96 10/21/17 08:15 10/21/17 07:14 10/21/17 08:15 10/21/17 10:45 10/21/17 07:14 Exam: Patient in no acute distress, alert and oriented x3 Heart in regular rate and rhythm, no murmur or gallop Lungs clear to auscultation without wheeze or rales or rhonchi Abdomen obese and soft and non tender legs bilaterally non pitting edematous with chronic venous stasis skin changes Skin warm and dry right foot with external fixation in place in medial ankle, there is purulent foul smelling drainage from the pin sites, erythema and edema surrounding the construct There is no sensation to the right foot, sensation intact in the leg Foot is warm, DP pulse maybe palpated, nursing has been using doppler to confirm pulse - Assessment and Plan (1) Nonhealing surgical wound Current Visit: Yes Status: Acute Assessment and Plan: Podiatry consulted, surgical removal of external fixation completed Patient tolerated the procedure well and we will await further recommendations from podiatry Continue vancomycin/Zosyn, currently day 2 Consult to wound care. (2) Hypertension Current Visit: Yes Status: Chronic Assessment and Plan: Blood pressure currently stable Resume home meds: PO hydralazine, metoprolol Add IV hydralazine prn. (3) CAD (coronary artery disease) Current Visit: No Status: Chronic Assessment and Plan: Continue home meds of aspirin, metoprolol, Crestor (4) DVT prophylaxis Current Visit: Yes Status: Acute Assessment and Plan: Heparin 5000 units every 12 hours subcutaneous (5) HLD (hyperlipidemia) Current Visit: Yes Status: Chronic Assessment and Plan: Resume home medication Crestor (6) PVD (peripheral vascular disease) Current Visit: Yes Status: Chronic Assessment and Plan: Patient currently anticoagulated with heparin and warfarin PVD complicated by diabetes Podiatry was consulted and we will defer to their recommendations (7) Hypothyroidism Current Visit: Yes Status: Chronic Assessment and Plan: Resume levothyroxine. (8) Diabetes Current Visit: Yes Status: Chronic Assessment and Plan: Patient takes Humuli R U-500 at home as prn. This may not be optimal for glucose control while admitted. Will place patient on sliding scale and basal insulin as Levemir 30 units BID. Will need to titrate basal insulin. He has had multiple times during admissions with glucose levels >400s. (9) Diabetic ulcer of right foot Current Visit: Yes Status: Acute Assessment and Plan: Worsening ulcer per patient. Continue Vancomcyin and Zosyn Podiatry consulted, and aware of patient admission. Surgery completed today we will await further podiatry recommendations (10) Atrial fibrillation Current Visit: Yes Status: Chronic Assessment and Plan: Continue metoprolol. On coumadin per PT. Heparin SQ 5,000 units BID bridging (11) ESRD (end stage renal disease) on dialysis Current Visit: Yes Status: Acute Assessment and Plan: Nephrology consulted to resume HD per regular schedule. Received dialysis today. (12) History of DVT (deep vein thrombosis) Current Visit: Yes Status: Acute Assessment and Plan: Coumadin per PT and heparin bridge - Time Spent with Patient Total time spent is greater than 50% in coordination of care (as documented) at patient's floor/unit and/or counseling patient: Internal Medicine: Result - Labs CBC & Chem 7: 10/21/17 06:11 10/21/17 06:11 Labs: Short CBC 10/21/17 Range/Units 06:11 WBC 7.7 (4.3-11.1) K/mcL Hgb 11.9 L (12.9-16.9) g/dL Hct 36.3 L (37.5-50.1) % Plt Count 257 (140-400) K/mcL Neutrophils # 4.6 (1.6-8.9) K/mcL BMP 10/21/17 06:11 Sodium 136 Potassium 4.9 Chloride 101 Carbon Dioxide 25 BUN 59 H Creatinine 3.07 H Glucose 319 H Calcium 9.2 - ABG Interpretation ABG results: PT/INR, D-dimer PT 17.1 Seconds (9.4-12.1) H 10/21/17 06:11 Consult Discharge Plan - Plan Referrals: Joan Lockhart [Primary Care Provider] - <Mich Emerson - Last Filed: 10/21/17 17:55> Hospitalist Progress Note - Encounter Date of Encounter: 10/21/17 - Exam Vitals: Temp Pulse Resp BP Pulse Ox 98.7 F 76 16 134/71 94 10/21/17 16:29 10/21/17 17:30 10/21/17 17:30 10/21/17 17:30 10/21/17 17:30 - Assessment and Plan (1) Hypertension Current Visit: Yes Status: Chronic (2) CAD (coronary artery disease) Current Visit: No Status: Chronic (3) DVT prophylaxis Current Visit: Yes Status: Acute (4) HLD (hyperlipidemia) Current Visit: Yes Status: Chronic (5) PVD (peripheral vascular disease) Current Visit: Yes Status: Chronic (6) Hypothyroidism Current Visit: Yes Status: Chronic (7) Diabetes Current Visit: Yes Status: Chronic (8) Diabetic ulcer of right foot Current Visit: Yes Status: Acute (9) Atrial fibrillation Current Visit: Yes Status: Chronic (10) Nonhealing surgical wound Current Visit: Yes Status: Acute (11) ESRD (end stage renal disease) on dialysis Current Visit: Yes Status: Acute (12) History of DVT (deep vein thrombosis) Current Visit: Yes Status: Acute - Time Spent with Patient Total time spent is greater than 50% in coordination of care (as documented) at patient's floor/unit and/or counseling patient: Internal Medicine: Result - Labs CBC & Chem 7: 10/21/17 06:11 10/21/17 06:11 Labs: Short CBC 10/21/17 Range/Units 06:11 WBC 7.7 (4.3-11.1) K/mcL Hgb 11.9 L (12.9-16.9) g/dL Hct 36.3 L (37.5-50.1) % Plt Count 257 (140-400) K/mcL Neutrophils # 4.6 (1.6-8.9) K/mcL BMP 10/21/17 06:11 Sodium 136 Potassium 4.9 Chloride 101 Carbon Dioxide 25 BUN 59 H Creatinine 3.07 H Glucose 319 H Calcium 9.2 - ABG Interpretation ABG results: PT/INR, D-dimer PT 17.1 Seconds (9.4-12.1) H 10/21/17 06:11 - Impressions Impressions Fluoroscopy 10/21/17 14:10 IMPRESSION: Intraprocedural fluoroscopic spot images as above. See separate procedure report for more information. D/ / Rancho Dalal MD / Rancho Dalal MD Interpreting Provider: Rancho Dalal MD Foot X-Ray 10/21/17 14:10 IMPRESSION: Intraprocedural fluoroscopic spot images as above. See separate procedure report for more information. D/ / Rancho Dalal MD / Rancho Dalal MD Interpreting Provider: Rancho Dalal MD - Attending Attestation I examined this patient and my medical decision-making was reviewed with the Resident Physician. I agree with the documented findings, disposition and treatment plan as described except to the extent set forth below. <Osman Schaefer - Last Filed: 10/21/17 17:24> (1) Nonhealing surgical wound Qualifiers: Encounter type: initial encounter Qualified Code(s): T81.89XA - Other complications of procedures, not elsewhere classified, initial encounter (2) Hypertension Qualifiers: Hypertension type: essential hypertension Qualified Code(s): I10 - Essential (primary) hypertension (3) CAD (coronary artery disease) Qualifiers: Coronary Disease-Associated Artery/Lesion type: [place] artery [place] vs. transplanted heart: [place] heart Associated angina: without angina Qualified Code(s): I25.10 - Atherosclerotic heart disease of [place] coronary artery without angina pectoris (5) HLD (hyperlipidemia) Qualifiers: Hyperlipidemia type: unspecified Qualified Code(s): E78.5 - Hyperlipidemia, unspecified (7) Hypothyroidism Qualifiers: Hypothyroidism type: unspecified Qualified Code(s): E03.9 - Hypothyroidism, unspecified (8) Diabetes Qualifiers: Diabetes mellitus type: type 2 Diabetes mellitus emt intermediate insulin use: unspecified skilled nursing insulin use status Diabetes mellitus complication status : with skin complications Diabetes mellitus complication detail: with foot ulcer Qualified Code(s): E11.621 - Type 2 diabetes mellitus with foot ulcer; L97.509 - Non-pressure chronic ulcer of other part of unspecified foot with unspecified severity (9) Diabetic ulcer of right foot Qualifiers: Diabetic foot ulcer location: other Diabetes mellitus type: type 2 Non- pressure ulcer stage: with fat layer exposed Qualified Code(s): E11.621 - Type 2 diabetes mellitus with foot ulcer; L97.512 - Non-pressure chronic ulcer of other part of right foot with fat layer exposed (10) Atrial fibrillation Qualifiers: Atrial fibrillation type: chronic Qualified Code(s): I48.2 - Chronic atrial fibrillation <Mich Emerson - Last Filed: 10/21/17 17:55> (1) Hypertension Qualifiers: Hypertension type: essential hypertension Qualified Code(s): I10 - Essential (primary) hypertension (2) CAD (coronary artery disease) Qualifiers: Coronary Disease-Associated Artery/Lesion type: [place] artery [place] vs. transplanted heart: [place] heart Associated angina: without angina Qualified Code(s): I25.10 - Atherosclerotic heart disease of [place] coronary artery without angina pectoris (4) HLD (hyperlipidemia) Qualifiers: Hyperlipidemia type: unspecified Qualified Code(s): E78.5 - Hyperlipidemia, unspecified (6) Hypothyroidism Qualifiers: Hypothyroidism type: unspecified Qualified Code(s): E03.9 - Hypothyroidism, unspecified (7) Diabetes Qualifiers: Diabetes mellitus type: type 2 Diabetes mellitus emt intermediate insulin use: unspecified skilled nursing insulin use status Diabetes mellitus complication status : with skin complications Diabetes mellitus complication detail: with foot ulcer Qualified Code(s): E11.621 - Type 2 diabetes mellitus with foot ulcer; L97.509 - Non-pressure chronic ulcer of other part of unspecified foot with unspecified severity (8) Diabetic ulcer of right foot Qualifiers: Diabetic foot ulcer location: other Diabetes mellitus type: type 2 Non- pressure ulcer stage: with fat layer exposed Qualified Code(s): E11.621 - Type 2 diabetes mellitus with foot ulcer; L97.512 - Non-pressure chronic ulcer of other part of right foot with fat layer exposed (9) Atrial fibrillation Qualifiers: Atrial fibrillation type: chronic Qualified Code(s): I48.2 - Chronic atrial fibrillation (10) Nonhealing surgical wound Qualifiers: Encounter type: initial encounter Qualified Code(s): T81.89XA - Other complications of procedures, not elsewhere classified, initial encounter
--- NOTE | 2017-10-21 12:26 | Anesthesia Evaluation PreOp ---
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 History: Denies Any Significant HX Other Medical History: Renal (ESRD on dialysis MWF, had dialysis this AM), Diabetes Type II, Thyroid, GERD, Other (obesity BMI=44.8) Anesthesia History: No Prior Anesthetic Complications, Past Anesthesia Alcohol Use: none Drug use: none Medications and Allergies Allopurinol [Zyloprim 100 MG] 100 mg PO DAILY 05/23/17 [History] Aspirin Enteric Coated [Aspirin EC] 81 mg PO DAILY 05/23/17 [History] Calcium Acetate [Phos-LO] 1,334 mg PO TIDWM 05/23/17 [History] Ezetimibe [Zetia] 10 mg PO DAILY 05/23/17 [History] Folic Acid 1 mg PO DAILY 05/23/17 [History] Furosemide [Lasix] 40 mg PO BID 05/23/17 [History] Gemfibrozil [Lopid] 600 mg PO BIDWM 05/23/17 [History] Hydralazine HCl 50 mg PO BID 05/23/17 [History] Levothyroxine [Synthroid] 200 mcg PO DAILY 05/23/17 [History] Rosuvastatin Calcium [Crestor] 40 mg PO DAILY 05/23/17 [History] Warfarin [Coumadin] 10 mg PO QPM 05/23/17 [History] Gabapentin [Neurontin] 300 mg PO DAILY 09/02/17 [History] Insulin Regular, Human [Humulin R U-500 Kwikpen] 0 unit SQ TID PRN 09/02/17 [ History] Metoprolol Succinate [Toprol Xl] 100 mg PO DAILY 09/02/17 [History] 3 Allergy/AdvReac Type Severity Reaction Status Date / Time Iodinated Contrast- Oral and Allergy Swelling Verified 10/14/17 15:40 IV Dye of [Iodinated Contrast Media - Lip/Tongue/Throat Oral and] red dye Allergy Rash Verified 10/14/17 15:40 - Meds/Allergy Pre-op Review Medications Reviewed: Yes Allergies Reviewed: Yes Beta Blockers on Current Med List: Yes If Beta Blockers taken, Date/Time (Last Dose taken): 10/21/2017 at 1223 Anesthesia Results - Labs 10/21/17 06:11 10/21/17 06:11 - Imaging EKG: report reviewed (09/02/2017 SINUS RHYTHM INCOMPLETE RIGHT BUNDLE BRANCH BLOCK MODERATE VOLTAGE CRITERIA FOR LVH) Additional studies: 07/15/2015 Echo Impressions: LVEF 55-60%. Normal LV chamber size, wall thickness and function. Atypical septal motion consistent with bundle branch block. Normal left ventricular diastolic function. Grossly, mild to moderately dilated right ventricle with normal appearing function. Severely dilated left atrium. Moderately dilated right atrium. Mild mitral regurgitation. Moderate pulmonary hypertension. Estimated RVSP is 49 mmHg. Findings: Study Quality * Technically sub-optimal due to body habitus. ECG Findings * Sinus rhythm with BBB. Left Ventricle * LVEF 55-60%. * Normal LV chamber size, wall thickness and function. * Atypical septal motion consistent with bundle branch block. * Normal left ventricular diastolic function. Right Ventricle * Grossly, mild to moderately dilated right ventricle with normal appearing function. Left Atrium * Severely dilated left atrium. Right Atrium * Moderately dilated right atrium. Interatrial Septum * Interatrial septum not well evaluated. Aortic Valve * Aortic valve not well visualized. * Focal calcification of the left and possibly the noncoronary cusps. * No aortic regurgitation. * No aortic stenosis. Mitral Valve * Moderate posterior mitral annular calcification. * Mild mitral regurgitation. * No mitral stenosis. Tricuspid Valve * Normal tricuspid valve structure and function. * Trace tricuspid regurgitation. * Moderate pulmonary hypertension. * Estimated RVSP is 49 mmHg. * Estimated RA pressure is 10 mmHg. Pulmonic Valve * Pulmonic valve not well visualized. Aorta * Normally sized aortic root. Pericardium * The pericardium appears normal. IVC * The IVC is dilated. * < 50% respiratory change. Pulmonary Artery * Pulmonary artery not well visualized. Anesthesia Exam Vital Signs/O2 Sat/Glucose, Most Recent Temp Pulse Resp BP Pulse Ox 97.8 F 79 17 115/66 97 10/21/17 12:15 10/21/17 12:15 10/21/17 12:15 10/21/17 12:15 10/21/17 12:15 Blood Glucose* 195 Height: 6'/1.83m Weight: 330 lbs/150 kg NPO (# of Hours): 8 Pain Scale: 0 Pain Scale Used: Numeric (1 - 10) - HEENT Pupil (Motor): EOMI Mallampati: III Teeth: Edentulous Oral Opening: Greater than 3 - C JAVA DEVELOPER LOC: Oriented C JAVA DEVELOPER Motor: Normal RUE, Normal LUE, Normal RLE, Normal LLE, Normal Face C JAVA DEVELOPER Sensory: Normal: Face, Deficit: RUE (neuropathy), LUE (neuropathy), RLE ( neuropathy), LLE (neuropathy) - Cardiac Rhythm: Irregular Murmur: None - Pulmonary Breath Sounds: bilateral Clear Respiratory Effort: Symmetrical Anesthesia Assess/Plan ASA Score: 4 Modified [place] Scale for Level of Consciousness: Cooperative, oriented, and tranquil Anesthetic Plan: General Monitoring Plan: Standard Monitors Recovery Plan: PACU
[2017-10-21] MEDS ORDERED: Bupivacaine/EPI 1:200k 0.25%PF 30 ML VIAL ONE (13:24)
[2017-10-21] MEDS ORDERED: Vancomycin 1,000 MG VIAL ONE (14:05)
[2017-10-21] MEDS: hydrALAZINE 25 MG TABLET PO SCH ×2 (14:53→21:28)
[2017-10-21] MEDS ORDERED: *HR* Promethazine 25 MG/ML VIAL IVP PRN ×2 (15:17→15:37)
[2017-10-21] MEDS ORDERED: *HR* OxyCODONE/APAP 5/325 TABLET PO PRN ×2 (15:17→15:37)
--- NOTE | 2017-10-21 15:33 | Operative Note ---
Date of procedure: 10/21/17 Pre-op diagnosis: lisfranc joint instability/dislocation, navicular dislocation Post-op diagnosis: same Procedure: removal of external fixator right foot arthrodesis of 2nd tarsometatarsal joint Implants: Extremity medical 5.5mm beam Anesthesia: GETA Surgeon: Napoleon Bill Was there an porcelain buildup assistant present: No Estimated blood loss (cc): 15 Specimen: none Condition: stable Disposition: PACU Procedure in Detail: Indications: 57-year-old diabetic male on dialysis with right foot navicular dislocation status post medial column fusion with internal hardware and external fixator. Patient also has Lisfranc joint second TMT ligament instability. Patient undergoing removal of external fixator and fusion of the second tarsometatarsal joint. Nature of the procedures, risks first benefits potential complications consequences of his condition and surgery discussed at length. No guarantees made as to the outcome of any procedure. All of his questions were answered and informed consent was signed. Patient was taken from preoperative holding area and operating room placed on operating room table in the supine position following induction of general anesthesia the following procedures below began. A high calf tourniquet was applied and inflated to 250 mmHg. Removal of external fixator. The bolts of the right external fixator were loosened and the rails were removed. The ex-fix pins traversing medial to lateral through the foot were then removed. The ex-fix pin sites were then flushed with normal sterile saline with vancomycin. No purulent drainage was expressed from the pin sites. There was no erythema surrounding the pin sites currently. No purulence is present. Suture was utilized to close the pin sites consisting of 2-0 Prolene. Attention was then directed to the midfoot. Second tarsometatarsal joint arthrodesis. The right midfoot Lisfranc's joints were stressed under fluoroscopy and the second TMT did not line up with the cuneiform. The decision was made to proceed with arthrodesis of this joint. Skin incision was made approximately 6 cm in length over the midfoot blunt dissection was carried out down to the level of the second tarsometatarsal joints. All traversing veins were divided ligated and retracted as deemed appropriate with the bovie. Neurovascular structures were protected and once down to the level of the second tarsometatarsal joint the soft tissue was freed from the dorsal aspect exposing the joint. The sagittal saw was used to resect the base of the second metatarsal and the cuneiform. Next attention was directed distally using standard technique and extremity 5.5 mm beam was thrown through the second metatarsal across the second tarsometatarsal joint with all threads crossing into the midfoot and cuneiform. C-arm was utilized to confirm position and alignment and excellent compression was noted clinically and radiographically across the second tarsometatarsal joint arthrodesis zone. Deep and subcutaneous tissues were closed with 2-0 Vicryl and skin was reapproximated with rafael. The patient tolerated the anesthesia and the procedure well was further covered vital signs stable vascular status intact to right foot noted by brisk capillary refill time to all digits of right foot. Patient was placed in an adequately padded posterior splint. Patient given strict instructions to remain nonweightbearing. He will continue his Coumadin on the floor.
[2017-10-21] MEDS ORDERED: Acetaminophen 325 MG TABLET PO PRN (15:37)
[2017-10-21] MEDS ORDERED: Naloxone 0.4 MG/ML INJ IVP PRN (15:37)
--- NOTE | 2017-10-21 15:37 | Event Note ---
Date of Encounter: 10/21/17 Time of Encounter: 03:30 resume coumadin
[2017-10-21] MEDS: Insulin LISPRO 300 UNITS/3 ML VIAL SQ SCH ×2 (16:56→21:29)
[2017-10-21] MEDS: Furosemide 40 MG TABLET PO SCH (16:57)
[2017-10-21] MEDS: Piperacillin/Tazobactam 3.375 GM in 0.9 % Sodium Chloride Mini Bag 100 ML IVPB SCH (16:57)
[2017-10-21] MEDS ORDERED: Furosemide 40 MG TABLET PO SCH (17:00)
--- NOTE | 2017-10-21 17:57 | Electrocardiograph Report ---
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
[2017-10-21] MEDS ORDERED: Warfarin perPT PO PRN (18:00)
[2017-10-21] MEDS: traMADol 50 MG TABLET PO PRN (18:37)
[2017-10-21] MEDS ORDERED: Insulin DETEMIR 100 UNIT/ML X5UNITS SQ SCH (21:00)
[2017-10-21] MEDS ORDERED: *HR* Warfarin 10 MG TABLET PO ONE (21:12)
[2017-10-22] MEDS ORDERED: *HR* Dextrose 50 % in Water (Syg) 50 ML SYRINGE IVP PRN (00:03)
[2017-10-22] MEDS ORDERED: D5% in Water 1,000 ML IVC PRN (00:03)
[2017-10-22] MEDS ORDERED: Dextrose Gel 15 GM/37.5 ML TUBE PO PRN ×2 (00:03)
[2017-10-22] MEDS ORDERED: Insulin DETEMIR 100 UNIT/ML X5UNITS SQ ONE ×2 (00:05→10:38)
[2017-10-22] MEDS: Piperacillin/Tazobactam 3.375 GM in 0.9 % Sodium Chloride Mini Bag 100 ML IVPB SCH ×2 (04:17→15:16)
[2017-10-22 05:01] LABS: Basophils # 0.1 K/mcL (0.0-0.2); Basophils % 0.4 %; Eosinophils # 0.1 K/mcL (0.0-0.6); Eosinophils % 0.7 %; Hematocrit 34.7 % (37.5-50.1); Hemoglobin 11.4 g/dL (12.9-16.9); Immature Granulocytes % 0.3 % (0-4); Lymphocytes # 1.8 K/mcL (0.6-4.6); Lymphocytes % 14.4 %; Mean Corpuscular HGB Conc 32.9 g/dL (31.6-35.5); Mean Corpuscular Hemoglobin 30.1 pg (28.0-33.3); Mean Corpuscular Volume 91.6 fL (83.0-100.0); Mean Platelet Volume 10.5 fL (9.4-12.4); Monocytes # 1.1 K/mcL (0.0-1.3); Monocytes % 9.1 %; Neutrophils # 9.2 K/mcL (1.6-8.9); Platelet Count 312 K/mcL (140-400); Red Blood Count 3.79 M/mcL (4.19-5.50); Red Cell Distribution Width 14.6 % (11.5-14.5); Segmented Neutrophils % 75.1 %
[2017-10-22 05:07] LABS: INR 1.4; Prothrombin Time 15.2 Seconds (9.4-12.1)
[2017-10-22 05:23] LABS: Calcium 8.9 mg/dL (8.6-10.3); Potassium 5.3 mEq/L (3.5-5.1)
[2017-10-22] MEDS: *HR* Heparin 5,000 UNIT/ML VIAL SQ SCH ×2 (05:50→17:29)
[2017-10-22] MEDS ORDERED: Insulin Human Regular 6 UNIT in 0.9 % Sodium Chloride 10 ML IV ONE (07:32)
[2017-10-22] MEDS ORDERED: Insulin Human Regular 12 UNIT in 0.9 % Sodium Chloride 10 ML IV ONE (07:32)
[2017-10-22] MEDS ORDERED: Insulin DETEMIR 100 UNIT/ML X5UNITS SQ SCH ×2 (07:45→21:00)
[2017-10-22] MEDS ORDERED: ZETIA 10 MG PO SCH (09:00)
[2017-10-22] MEDS: Insulin LISPRO 300 UNITS/3 ML VIAL SQ SCH ×7 (09:07→20:13)
[2017-10-22] MEDS: Aspirin Enteric Coated 81 MG Tablet PO SCH (09:09)
[2017-10-22] MEDS: Furosemide 40 MG TABLET PO SCH ×2 (09:09→17:30)
[2017-10-22] MEDS: Calcium Acetate 667 MG CAPSULE PO SCH ×3 (09:09→17:29)
[2017-10-22] MEDS: hydrALAZINE 25 MG TABLET PO SCH ×2 (09:09→20:12)
[2017-10-22] MEDS: Folic Acid 1 MG TABLET PO SCH (09:10)
[2017-10-22] MEDS: Metoprolol XL (24 HR) Succ 50 MG TAB.ER.24H PO SCH (09:10)
[2017-10-22] MEDS: Gabapentin 300 MG CAPSULE PO SCH (09:10)
--- NOTE | 2017-10-22 09:29 | Nephrology Progress Note ---
Date of Encounter: 10/22/17 Time of Encounter: 09:27 - Assessment and Plan (1) ESRD (end stage renal disease) on dialysis Current Visit: Yes Status: Acute Current regimen is MWF in [place] with [facility]. HD completed yesterday. Strict I/O Avoid nephrotoxins and renal dose all medications. Renal diet, when able to eat. (2) Diabetes Current Visit: Yes Status: Chronic Per primary. 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 Qualifiers: Encounter type: subsequent encounter Qualified Code(s): S93.314D - Dislocation of tarsal joint of right foot, subsequent encounter Subjective Principal diagnosis: OR this afternoon Interval history: Pt seen and examined doing well. Denies CP/SOB, nausea/vomiting/diarrhea. Objective - Vital Signs Vital signs: Vital Signs Temp Pulse Resp BP Pulse Ox 10/22/17 07:58 98.3 F 69 18 156/82 98 10/22/17 03:44 98.6 F 67 16 162/75 97 10/22/17 00:33 98.5 F 79 13 137/75 96 10/21/17 21:24 92 10/21/17 18:48 98.6 F 82 16 127/72 92 10/21/17 18:32 82 16 124/67 94 10/21/17 18:00 86 16 137/71 94 10/21/17 17:30 76 16 134/71 94 10/21/17 17:15 79 16 131/71 94 10/21/17 17:00 75 16 134/79 94 10/21/17 16:45 75 16 151/81 94 10/21/17 16:29 98.7 F 72 16 137/77 94 10/21/17 16:01 98.8 F 72 14 135/66 93 10/21/17 15:51 71 13 140/64 94 10/21/17 15:41 72 13 139/69 93 10/21/17 15:31 98.3 F 74 18 133/61 96 10/21/17 12:15 97.8 F 79 17 115/66 97 10/21/17 12:00 97.1 F L 15 128/70 10/21/17 11:45 102/69 10/21/17 11:30 110/67 10/21/17 11:15 128/67 10/21/17 11:00 97/67 10/21/17 10:45 131/89 10/21/17 10:30 140/82 10/21/17 10:15 142/83 10/21/17 10:00 138/80 10/21/17 09:45 146/86 10/21/17 09:30 136/79 Intake and Output 10/21/17 10/22/17 10/22/17 23:59 07:59 15:59 Intake Total 460 / 460 Balance 460 / 460 Intake: IV Fluids 100 / 100 Zosyn 3.375 GM In 0.9 % Sodium 100 / 100 Chloride (Mini-Bag +) 100 ML @ 25 mls/hr IVPB Q12H [facility] Rx#: [id number] Oral 360 / 360 Other: Meal Dinner Percent of Meal Consumed 100% Stool Size Moderate Stool Consistency formed # Voids 1 # Bowel Movements 1 Weight 151.1 kg Blood Glucose* [phone] Patient Weight 10/22/17 23:59 Weight 151.1 kg - General Appearance General appearance: Present: well-developed, well-nourished EENT: Present: ATNC, hearing intact, vision intact Neck: Present: supple Respiratory: Present: clear Cardiology: Present: edema (+1 pitting edema noted to LLE, unable to assess to RLE due to bulky dressing. ), normal S1, normal S2 Dialysis Vascular Access: Arteriovenous Fistula thrill: Yes bruit: Yes Gastrointestinal: Present: normoactive bowel sounds, no tenderness, no guarding Integumentary: Present: no rash, warm and dry Neurologic: Present: alert and oriented x3 Psychiatric: Present: mood/affect appropriate, cooperative - Lab 10/22/17 04:28 10/22/17 04:28 Most recent lab results Calcium 8.9 mg/dL (8.6-10.3) 10/22/17 04:28 Consult Discharge Plan - Plan Referrals: Joan Lockhart [Primary Care Provider] -
--- NOTE | 2017-10-22 09:45 | Event Note ---
Date of Encounter: 10/22/17 Time of Encounter: 09:42 Patient seen and examined this morning. Post op day 1 status post removal of external fixator of right foot. Patient has non-healing surgical wound. He has been on Vanc/Zosyn. There was some discharge on admission. Currently he has clean dressing and wrapped. Leukocytosis is new today, likely reactive. No fevers, and is hemodynamically stable. I do not think this is infected and will consult ID for a second opinion to see if antibiotics should be continued.
[2017-10-22] MEDS ORDERED: Insulin Human Regular 8 UNIT in 0.9 % Sodium Chloride 10 ML IV ONE (10:37)
--- NOTE | 2017-10-22 13:47 | Infectious Disease Consult ---
Date of Encounter: 10/22/17 Time of Encounter: 12:15 Assessment and Plan (1) Infected hardware in right lower extremity Status: Acute Assessment and plan: Accidental injury with right navicular and lisfranc dislocations. Status post surgery with pin placement on 09/03/17. POD #1 status post removal of external fixators. Causative organism: unknown Recommend discontinuing vancomycin and zosyn. Recommend starting augmentin 500mg q24h and Bactrim 1 single-strength tablet q24h. Continue through 10/30 for 10 day course. Monitor renal function and for drug toxicity and dose-adjust antibiotics. Wound care. Podiatry consulted and following. Qualifiers: Qualified Code(s): T84.7XXA - Infection and inflammatory reaction due to other internal orthopedic prosthetic devices, implants and grafts, initial encounter (2) ESRD (end stage renal disease) on dialysis Status: Chronic Assessment and plan: Dialysis schedule Mon/Wed/Fri Nephrology consulted and following. (3) Closed dislocation of navicular bone of right foot Status: Acute Assessment and plan: Accidental injury with right navicular and lisfranc dislocations. Status post surgery with pin placement on 09/03/17. POD #1 status post removal of external fixators. Podiatry consulted and following. Qualifiers: Encounter type: initial encounter Qualified Code(s): S93.314A - Dislocation of tarsal joint of right foot, initial encounter (4) PVD (peripheral vascular disease) Status: Chronic Assessment and plan: Complicated by diabetes. On Coumadin with heparin bridge. Management per primary team. (5) Insulin dependent type 2 diabetes mellitus Status: Chronic Assessment and plan: Sliding scale insulin (6) Hypertension Status: Chronic Assessment and plan: On hydralazine, metoprolol Qualifiers: Hypertension type: essential hypertension Qualified Code(s): I10 - Essential (primary) hypertension (7) CAD (coronary artery disease) Status: Chronic Assessment and plan: On ASA, metoprolol, crestor Qualifiers: Coronary Disease-Associated Artery/Lesion type: [place] artery [place] vs. transplanted heart: [place] heart Associated angina: without angina Qualified Code(s): I25.10 - Atherosclerotic heart disease of [place] coronary artery without angina pectoris (8) History of DVT (deep vein thrombosis) Status: Acute Assessment and plan: On Coumadin with heparin bridge (9) Atrial fibrillation Status: Chronic Assessment and plan: On metoprolol and Coumadin. Qualifiers: Atrial fibrillation type: chronic Qualified Code(s): I48.2 - Chronic atrial fibrillation (10) Hypothyroidism Status: Chronic Assessment and plan: On levothyroxine Qualifiers: Hypothyroidism type: unspecified Qualified Code(s): E03.9 - Hypothyroidism , unspecified Infectious Disease HPI - Data of Consult Requesting Physician: Mich Emerson MD Primary Care Provider: Joan Lockhart - Consult Narrative History of present illness: Mr. Oneal is a 57 year old male with past medical history of ESRD on hemodialysis, atrial fibrillation, diabetes, CHF, COPD, CAD, HTN, HLD, [place], PAD, thyroid disease, DVTs on Coumadin, and venous stasis. The patient was admitted to the hospital on 10/20/17 for possible infection of right foot external fixation hardware secondary to navicular dislocation. We are consulted on for new leukocytosis. Briefly, the patient is a 57 year old male with past medical history as stated above. Patient was sent to the ED on 10/[address] Bill from [facility] for admission for worsening right foot wound with purulent discharge with foul odor. Patient had injured right foot with ankle fracture doing yardwork 3-4months ago. Last surgery and pin placement was 09/03/17. Patient was scheduled to have foot surgery on 10/[address] [address] Bill. On presentation to the ED, the patient was afebrile without tachycardia or tachypnea. WBC was normal. CXR showed no active pulmonary disease. Blood culture was obtained. Patient was given vancomycin and zosyn. He was admitted. Patient had foot surgery with removal of external fixators and arthrodesis of 2 nd tarsometatarsal joint. On POD #1 status post external fixator removal, patient had new leukocytosis. Patient was afebrile and hemodynamically stable. Foot dressing is clean. ID was consulted for second opinion if antibiotics should be continued. Nephrology was consulted for ESRD on HD. During my exam today, the patient endorses the history as stated above. No acute events overnight. Patient is sitting comfortably in bed about to eat lunch. Patient states he feels ok. States he has some pain in right foot. Right foot is well-dressed without any evidence of bleeding or drainage. Reports throat feels a bit sore from intubation yesterday. Reports right leg seems more swollen. Patient reports making a bowel movement today that was normal. Patient denies fever, chills. Denies chest pain, shortness of breath. Denies nausea/vomiting, abdominal pain, diarrhea/constipation. Denies urinary symptoms. Denies new numbness, tingling. CC: Mich Emerson MD Past Med Surg Social Fam HX - Past Medical History Medical history: arthritis, atrial fibrillation, CHF, COPD, coronary artery disease, DVT, diabetes, dialysis, GERD, hyperlipidemia, hypertension, kidney stones, myocardial infarction, osteoporosis, peripheral artery disease, renal disease, thyroid disease, venous stasis, other Additional medical history: CRF. hypothyroidism Psychiatric history: no psych history - Past Surgical History Surgical History: other Additional surgical history: left toe amputation 2004, right foot surgery 2017 - Social History Smoking Status: Never smoker Smokeless Tobacco Status: No Alcohol use: none Drug use: none - Family History Mother Adopted: No Family Member Ethnicity: Non- Living Status: Hx Family Cardiac Disorders: No Hx Family Respiratory Disorders: No Hx Family Cancer: Yes Hx Family GI Disorders: Yes Hx Family Endocrine Disorder: Yes Hx Family Neuromuscular Disorders: No Hx Family Neurologic Disorders: No Hx Family HEENT Disorders: No Hx Family Autoimmune Disorders: No Father Adopted: No Family Member Ethnicity: Non- Living Status: Hx Family Cardiac Disorders: No Hx Family Respiratory Disorders: Yes Hx Family Cancer: Yes Hx Family GI Disorders: No Hx Family Endocrine Disorder: Yes Hx Family Neuromuscular Disorders: No Hx Family Neurologic Disorders: No Hx Family HEENT Disorders: No Hx Family Autoimmune Disorders: No Infectious Disease-CN:Meds Allopurinol [Zyloprim 100 MG] 100 mg PO DAILY 05/23/17 [History] Aspirin Enteric Coated [Aspirin EC] 81 mg PO DAILY 05/23/17 [History] Calcium Acetate [Phos-LO] 1,334 mg PO TIDWM 05/23/17 [History] Ezetimibe [Zetia] 10 mg PO DAILY 05/23/17 [History] Folic Acid 1 mg PO DAILY 05/23/17 [History] Furosemide [Lasix] 40 mg PO BID 05/23/17 [History] Gemfibrozil [Lopid] 600 mg PO BIDWM 05/23/17 [History] Hydralazine HCl 50 mg PO BID 05/23/17 [History] Levothyroxine [Synthroid] 200 mcg PO DAILY 05/23/17 [History] Rosuvastatin Calcium [Crestor] 40 mg PO DAILY 05/23/17 [History] Warfarin [Coumadin] 10 mg PO QPM 05/23/17 [History] Gabapentin [Neurontin] 300 mg PO DAILY 09/02/17 [History] Insulin Regular, Human [Humulin R U-500 Kwikpen] 0 unit SQ TID PRN 09/02/17 [ History] Metoprolol Succinate [Toprol Xl] 100 mg PO DAILY 09/02/17 [History] 3 Allergy/AdvReac Type Severity Reaction Status Date / Time Iodinated Contrast- Oral and Allergy Swelling Verified 10/14/17 15:40 IV Dye of [Iodinated Contrast Media - Lip/Tongue/Throat Oral and] red dye Allergy Rash Verified 10/14/17 15:40 Exam - Constitutional Vitals: Temp Pulse Resp BP Pulse Ox 98.1 F 69 19 156/76 95 10/22/17 11:45 10/22/17 11:45 10/22/17 11:45 10/22/17 11:45 10/22/17 11:45 General appearance: cooperative, morbidly obese, no acute distress, no febrile - Head Head exam: Present: atraumatic, normal inspection, normocephalic - Eye Eye exam: Present: EOMI, normal appearance, PERRL - ENT ENT exam: Present: mucous membranes moist, normal oropharynx - Neck Neck exam: Present: normal inspection - Respiratory Respiratory exam: Present: CTAB. Absent: rales, respiratory distress, rhonchi, wheezes - Cardiovascular Cardiovascular exam: Present: RRR, +S1, +S2 - GI/Abdominal GI/Abdominal exam: Present: distended (obese), normal bowel sounds, soft. Absent: tenderness - Extremities Exam Extremities exam: Absent: joint swelling, normal inspection (Right leg well- dressed, no evidence of bleeding or drainage. Left leg is discolored dark with tissue texture changes. ), pedal edema, tenderness - Back Exam Back exam: Present: normal inspection - Neurological Exam Neurological exam: Present: alert, oriented X3, no focal deficits - Psychiatric Psychiatric exam: Present: normal affect, normal mood - Skin Skin exam: Present: dry, intact, warm Infectious Disease CN: Results - Labs CBC & Chem 7: 10/23/17 05:38 10/23/17 05:38 Serology: Serology 10/21/17 Range/Units 09:02 Hep Bs Antigen Nonreactive (Nonreactive) Hep Bs Antibody 0.00 mIU/mL Consult Discharge Plan - Plan Referrals: Joan Lockhart [Primary Care Provider] - - Attending Attestation I examined this patient and my medical decision-making was reviewed with the Resident Physician. I agree with the documented findings, disposition and treatment plan as described except to the extent set forth below. Patient is a 57-year-old gentleman with past medical history mentioned below presented to [facility] on 10/20/2017 as a direct admission from Dr. Bill office for mild erythema and drainage around the tendons of the external fixator. Patient initially had an accident all working in the yard about 4 months ago and underwent surgery by Dr. Bill on 09/03/2017 where he underwent a fusion of the navicular cuneiform and talonavicular joint right foot, mid foot capsulotomy and application of external fixator. Patient was being followed by Dr. Bill and there was some drainage and erythema. Patient was brought into the hospital for evaluation. Patient had no sepsis criteria. No leukocytosis no fever no tachycardia no tachypnea. Patient was taken to surgery where he underwent removal of external fixator of the right foot, arthrodesis of the second tarsometatarsal joint on 10/21/2017. I personally spoke with Dr. Bill regarding the patient and he told me there was no deep infection there was no necrotic tissue bone was healthy and he feels the drainage and the mild erythema was all just around the pin site. No Intra-Op cultures were sent. At this point based on the information we have, and after discussing with Dr. Bill, decision is to treat this is superficial infection. We will treat the patient with Augmentin and Bactrim based on previous cultures he had on the left leg. Duration of treatment 14 days. We will dose adjust antibiotics based on the creatinine clearance of patient with end-stage renal disease on hemodialysis.
[2017-10-22] MEDS ORDERED: Aminoglycoside Consult 1 EACH MC ONE (14:34)
--- NOTE | 2017-10-22 17:44 | Internal Med Progress Note ---
<Osman Schaefer - Last Filed: 10/22/17 17:37> Hospitalist Progress Note - Encounter Date of Encounter: 10/22/17 Time of Encounter: 09:00 - Subjective Interval History: Patient seen and examined this morning, no acute events overnight Patient was admitted for possible infection of right foot external fixation hardware secondary to fracture Patient was taken to surgery yesterday which was tolerated well by the patient He has no acute complaints today - Exam Vitals: Temp Pulse Resp BP Pulse Ox 98.1 F 68 18 151/77 96 10/22/17 16:55 10/22/17 16:55 10/22/17 16:55 10/22/17 16:55 10/22/17 16:55 Exam: Patient in no acute distress, alert and oriented x3 Heart in regular rate and rhythm, no murmur or gallop Lungs clear to auscultation without wheeze or rales or rhonchi Abdomen obese and soft and non tender left leg non pitting edematous with chronic venous stasis skin changes, right leg is in wrapped postop boot Skin warm and dry There is no sensation to the right toes but capillary refill is less than 2 sec - Assessment and Plan (1) Nonhealing surgical wound Status: Acute Assessment and Plan: Podiatry consulted, surgical removal of external fixation completed Patient tolerated the procedure well and we will await further recommendations from podiatry Continue vancomycin/Zosyn, currently day 3 Waiting ID input on antibiotic regimen (2) Hypertension Status: Chronic Assessment and Plan: Blood pressure currently stable Resume home meds: PO hydralazine, metoprolol Add IV hydralazine prn. (3) CAD (coronary artery disease) Status: Chronic Assessment and Plan: Continue home meds of aspirin, metoprolol, Crestor (4) DVT prophylaxis Status: Acute Assessment and Plan: Heparin 5000 units every 12 hours subcutaneous (5) HLD (hyperlipidemia) Status: Chronic Assessment and Plan: Resume home medication Crestor (6) PVD (peripheral vascular disease) Status: Chronic Assessment and Plan: Patient currently anticoagulated with heparin and warfarin PVD complicated by diabetes (7) Hypothyroidism Status: Chronic Assessment and Plan: Resume levothyroxine. (8) Diabetes Status: Chronic Assessment and Plan: Patient takes Humuli R U-500 at home as prn. This may not be optimal for glucose control while admitted. Will place patient on sliding scale and basal insulin as Levemir 50 units AM, 40 units HS. Will need to titrate basal insulin. He has had multiple times during admissions with glucose levels >400s. (9) Diabetic ulcer of right foot Status: Acute Assessment and Plan: Worsening ulcer per patient. Continue Vancomcyin and Zosyn We will defer to podiatry (10) Atrial fibrillation Status: Chronic Assessment and Plan: Continue metoprolol. On coumadin per PT. Heparin SQ 5,000 units BID bridging (11) ESRD (end stage renal disease) on dialysis Status: Chronic Assessment and Plan: Nephrology consulted to resume HD per regular schedule. Received dialysis yesterday. (12) History of DVT (deep vein thrombosis) Status: Acute Assessment and Plan: Coumadin per PT and heparin bridge - Time Spent with Patient Total time spent is greater than 50% in coordination of care (as documented) at patient's floor/unit and/or counseling patient: Internal Medicine: Result - Labs CBC & Chem 7: 10/22/17 04:28 10/22/17 04:28 Labs: Short CBC 10/22/17 Range/Units 04:28 WBC 12.3 H D (4.3-11.1) K/mcL Hgb 11.4 L (12.9-16.9) g/dL Hct 34.7 L (37.5-50.1) % Plt Count 312 (140-400) K/mcL Neutrophils # 9.2 H (1.6-8.9) K/mcL BMP 10/22/17 04:28 Sodium 132 L Potassium 5.3 H Chloride 95 L Carbon Dioxide 27 BUN 50 H Creatinine 3.33 H Glucose 437 H Calcium 8.9 - ABG Interpretation ABG results: PT/INR, D-dimer PT 15.2 Seconds (9.4-12.1) H 10/22/17 04:28 Consult Discharge Plan - Plan Instructions: Diabetes Mellitus Type 2 in Adults (DC) Referrals: Napoleon Bill DPM [Partnered Physician] - (Web request for appointment completed and recieved 10/24/2017) Joan Lockhart [Primary Care Provider] - (Follow-up with primary care provider following dischage from hospital ) Prescriptions: OxyCODONE Immed Rel [Roxicodone 5 MG] 5 mg PO Q6HR PRN 3 Days #12 tablet PRN Reason: Severe Pain Amoxicillin/Clavulanate [Augmentin] 500 mg PO Q24H #6 tablet Insulin DETEMIR [Levemir] 60 unit SQ BID #3600 units Insulin LISPRO [HumaLOG] 30 units SQ TIDWM #2700 units Sulfamethoxazole/Trimeth SS [Bactrim SS] 1 tab PO Q24H #6 tablet <MohamudanilshailaDiane Oneiljoseph - Last Filed: 10/24/17 15:08> Hospitalist Progress Note - Encounter Date of Encounter: 10/24/17 - Exam Vitals: Temp Pulse Resp BP Pulse Ox 98.9 F 76 18 153/87 95 10/24/17 11:17 10/24/17 11:17 10/24/17 11:17 10/24/17 11:17 10/24/17 11:17 - Assessment and Plan (1) Diabetic ulcer of right foot Status: Acute (2) Diabetes Status: Chronic (3) Hypertension Status: Chronic (4) CAD (coronary artery disease) Status: Chronic (5) DVT prophylaxis Status: Acute (6) HLD (hyperlipidemia) Status: Chronic (7) PVD (peripheral vascular disease) Status: Chronic (8) Hypothyroidism Status: Chronic (9) Atrial fibrillation Status: Chronic (10) Nonhealing surgical wound Status: Acute (11) ESRD (end stage renal disease) on dialysis Status: Chronic (12) History of DVT (deep vein thrombosis) Status: Acute - Time Spent with Patient Total time spent is greater than 50% in coordination of care (as documented) at patient's floor/unit and/or counseling patient: Internal Medicine: Result - Labs CBC & Chem 7: 10/24/17 05:58 10/24/17 05:58 Labs: Short CBC 10/24/17 Range/Units 05:58 WBC 7.4 (4.3-11.1) K/mcL Hgb 10.8 L (12.9-16.9) g/dL Hct 33.3 L (37.5-50.1) % Plt Count 282 (140-400) K/mcL Neutrophils # 4.4 (1.6-8.9) K/mcL BMP 10/24/17 05:58 Sodium 139 Potassium 3.9 Chloride 100 Carbon Dioxide 27 BUN 48 H Creatinine 3.06 H Glucose 112 H Calcium 9.4 - ABG Interpretation ABG results: PT/INR, D-dimer PT 19.1 Seconds (9.4-12.1) H 10/24/17 05:58 - Attending Attestation I examined this patient and my medical decision-making was reviewed with the Resident Physician. I agree with the documented findings, disposition and treatment plan as described except to the extent set forth below. <Osman Schaefer - Last Filed: 10/22/17 17:37> (1) Nonhealing surgical wound Qualifiers: Encounter type: initial encounter Qualified Code(s): T81.89XA - Other complications of procedures, not elsewhere classified, initial encounter (2) Hypertension Qualifiers: Hypertension type: essential hypertension Qualified Code(s): I10 - Essential (primary) hypertension (3) CAD (coronary artery disease) Qualifiers: Coronary Disease-Associated Artery/Lesion type: [place] artery [place] vs. transplanted heart: [place] heart Associated angina: without angina Qualified Code(s): I25.10 - Atherosclerotic heart disease of [place] coronary artery without angina pectoris (5) HLD (hyperlipidemia) Qualifiers: Hyperlipidemia type: unspecified Qualified Code(s): E78.5 - Hyperlipidemia, unspecified (7) Hypothyroidism Qualifiers: Hypothyroidism type: unspecified Qualified Code(s): E03.9 - Hypothyroidism, unspecified (8) Diabetes Qualifiers: Diabetes mellitus type: type 2 Diabetes mellitus residential insulin use: unspecified residential insulin use status Diabetes mellitus complication status : with skin complications Diabetes mellitus complication detail: with foot ulcer Qualified Code(s): E11.621 - Type 2 diabetes mellitus with foot ulcer; L97.509 - Non-pressure chronic ulcer of other part of unspecified foot with unspecified severity (9) Diabetic ulcer of right foot Qualifiers: Diabetic foot ulcer location: other Diabetes mellitus type: type 2 Non- pressure ulcer stage: with fat layer exposed Qualified Code(s): E11.621 - Type 2 diabetes mellitus with foot ulcer; L97.512 - Non-pressure chronic ulcer of other part of right foot with fat layer exposed (10) Atrial fibrillation Qualifiers: Atrial fibrillation type: chronic Qualified Code(s): I48.2 - Chronic atrial fibrillation <JeniffershailaDiane Oneiljoseph - Last Filed: 10/24/17 15:08> (1) Diabetic ulcer of right foot Qualifiers: Diabetic foot ulcer location: other Diabetes mellitus type: type 2 Non- pressure ulcer stage: with fat layer exposed Qualified Code(s): E11.621 - Type 2 diabetes mellitus with foot ulcer; L97.512 - Non-pressure chronic ulcer of other part of right foot with fat layer exposed (2) Diabetes Qualifiers: Diabetes 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 transplanted heart: [place] heart Associated angina: without angina Qualified Code(s): I25.10 - Atherosclerotic heart disease of [place] coronary artery without angina pectoris (6) HLD (hyperlipidemia) Qualifiers: Hyperlipidemia type: unspecified Qualified Code(s): E78.5 - Hyperlipidemia, unspecified (8) Hypothyroidism Qualifiers: Hypothyroidism type: unspecified Qualified Code(s): E03.9 - Hypothyroidism, unspecified (9) Atrial fibrillation Qualifiers: Atrial fibrillation type: chronic Qualified Code(s): I48.2 - Chronic atrial fibrillation (10) Nonhealing surgical wound Qualifiers: Encounter type: initial encounter Qualified Code(s): T81.89XA - Other complications of procedures, not elsewhere classified, initial encounter
[2017-10-22] MEDS ORDERED: *HR* Warfarin 7.5 MG TABLET PO ONE (18:00)
[2017-10-22] MEDS: Sulfamethoxazole/Trimeth SS 1 TAB PO SCH (18:26)
[2017-10-22] MEDS: Amoxicillin/Clavulanate 500 MG TABLET PO SCH (18:26)
[2017-10-22] MEDS: *HR* OxyCODONE Immed Rel 5 MG TABLET PO PRN (20:24)
[2017-10-23] MEDS: *HR* Heparin 5,000 UNIT/ML VIAL SQ SCH ×2 (05:45→17:47)
[2017-10-23] MEDS: traMADol 50 MG TABLET PO PRN (05:46)
[2017-10-23 05:57] LABS: Hematocrit 32.5 % (37.5-50.1); Hemoglobin 10.9 g/dL (12.9-16.9); Mean Corpuscular HGB Conc 33.5 g/dL (31.6-35.5); Mean Corpuscular Hemoglobin 30.5 pg (28.0-33.3); Mean Platelet Volume 10.5 fL (9.4-12.4); Platelet Count 272 K/mcL (140-400); Red Blood Count 3.57 M/mcL (4.19-5.50); Red Cell Distribution Width 14.6 % (11.5-14.5)
[2017-10-23 06:05] LABS: INR 1.5; Prothrombin Time 17.1 Seconds (9.4-12.1)
[2017-10-23 06:14] LABS: Calcium 9.2 mg/dL (8.6-10.3); Potassium 4.3 mEq/L (3.5-5.1)
[2017-10-23] MEDS: Insulin LISPRO 300 UNITS/3 ML VIAL SQ SCH ×7 (08:43→22:06)
[2017-10-23] MEDS: Calcium Acetate 667 MG CAPSULE PO SCH ×3 (08:43→17:47)
--- NOTE | 2017-10-23 08:50 | Internal Med Progress Note ---
<Fidencio Crane - Last Filed: 10/23/17 08:46> Hospitalist Progress Note - Encounter Date of Encounter: 10/23/17 Time of Encounter: 08:48 - Subjective Interval History: 57-year-old male evaluated at bedside. Patient reports nausea without vomiting. He denies diarrhea, fever, chills, chest pain, shortness of breath. - Exam Vitals: Temp Pulse Resp BP Pulse Ox 98.1 F 74 16 152/77 96 10/23/17 08:02 10/23/17 08:02 10/23/17 08:02 10/23/17 08:02 10/23/17 08:02 Exam: Gen.: alert and oriented X3, no acute distress. CV: regular rate and rhythm, no murmurs, rubs, gallops. Lungs: clear to auscultation bilaterally Abdomen obese, distended, soft, nontender, bowel sounds present. Extremities: left lower extremity skin darkening with venous stasis present. Right lower extremity wrapped and surgery. Skin warm and dry, intact - Assessment and Plan (1) Nonhealing surgical wound Current Visit: Yes Status: Acute Assessment and Plan: Podiatry consulted,[atevelin alvares pm 10/21 with podiatry: removal of external fixator right foot, arthrodesis of 2nd tarsometatarsal joint. post op day 2 Patient tolerated the procedure well and we will await further recommendations from podiatry patient received 2 days of Zosyn in 2 days of vancomycin. Plan: Per ID recommendations, Augmentin day 2, Bactrim day 2 tight glycemic control in setting of surgical wound (2) Hypertension Current Visit: Yes Status: Chronic Assessment and Plan: Blood pressure currently stable continue home medications. Hydralazine IV PRN. (3) CAD (coronary artery disease) Current Visit: No Status: Chronic Assessment and Plan: Continue home meds of aspirin, metoprolol, Crestor (4) HLD (hyperlipidemia) Current Visit: Yes Status: Chronic Assessment and Plan: Continue home medications (5) PVD (peripheral vascular disease) Current Visit: Yes Status: Chronic Assessment and Plan: Continue home medications (6) Hypothyroidism Current Visit: Yes Status: Chronic Assessment and Plan: Continue levothyroxine. (7) Diabetes Current Visit: Yes Status: Chronic Assessment and Plan: Increased basal and mealtime insulin today with ACHS Accu checks Sugars poorly controlled. Continue monitoring (8) Diabetic ulcer of right foot Current Visit: Yes Status: Acute Assessment and Plan: Continue antibiotics, appreciate podiatry recommendations (9) Atrial fibrillation Current Visit: Yes Status: Chronic Assessment and Plan: Continue metoprolol. On coumadin per PT. (10) ESRD (end stage renal disease) on dialysis Current Visit: Yes Status: Chronic Assessment and Plan: Nephrology consulted to resume HD per regular schedule. (11) DVT prophylaxis Current Visit: Yes Status: Acute Assessment and Plan: Heparin SQ, Coumadin per pharmacy dosing (12) History of DVT (deep vein thrombosis) Current Visit: Yes Status: Acute Assessment and Plan: Coumadin per PT continue heparin SQ for DVT prophylaxis until INR in therapeutic range. - Time Spent with Patient Total time spent is greater than 50% in coordination of care (as documented) at patient's floor/unit and/or counseling patient: Internal Medicine: Result - Labs CBC & Chem 7: 10/23/17 05:38 10/23/17 05:38 Labs: Short CBC 10/23/17 Range/Units 05:38 WBC 9.7 (4.3-11.1) K/mcL Hgb 10.9 L (12.9-16.9) g/dL Hct 32.5 L (37.5-50.1) % Plt Count 272 (140-400) K/mcL BMP 10/23/17 05:38 Sodium 134 L Potassium 4.3 Chloride 95 L Carbon Dioxide 26 BUN 58 H Creatinine 3.58 H Glucose 342 H Calcium 9.2 - ABG Interpretation ABG results: PT/INR, D-dimer PT 17.1 Seconds (9.4-12.1) H 10/23/17 05:38 Consult Discharge Plan - Plan Referrals: Joan Lockhart [Primary Care Provider] - <Mich Emerson - Last Filed: 10/23/17 14:41> Hospitalist Progress Note - Encounter Date of Encounter: 10/23/17 - Exam Vitals: Temp Pulse Resp BP Pulse Ox 97.2 F L 77 15 131/70 96 10/23/17 13:10 10/23/17 10:05 10/23/17 13:10 10/23/17 13:10 10/23/17 10:05 - Assessment and Plan (1) Hypertension Current Visit: Yes Status: Chronic (2) CAD (coronary artery disease) Current Visit: No Status: Chronic (3) DVT prophylaxis Current Visit: Yes Status: Acute (4) HLD (hyperlipidemia) Current Visit: Yes Status: Chronic (5) PVD (peripheral vascular disease) Current Visit: Yes Status: Chronic (6) Hypothyroidism Current Visit: Yes Status: Chronic (7) Diabetes Current Visit: Yes Status: Chronic (8) Diabetic ulcer of right foot Current Visit: Yes Status: Acute (9) Atrial fibrillation Current Visit: Yes Status: Chronic (10) Nonhealing surgical wound Current Visit: Yes Status: Acute (11) ESRD (end stage renal disease) on dialysis Current Visit: Yes Status: Chronic (12) History of DVT (deep vein thrombosis) Current Visit: Yes Status: Acute - Time Spent with Patient Total time spent is greater than 50% in coordination of care (as documented) at patient's floor/unit and/or counseling patient: Internal Medicine: Result - Labs CBC & Chem 7: 10/23/17 05:38 10/23/17 05:38 Labs: Short CBC 10/23/17 Range/Units 05:38 WBC 9.7 (4.3-11.1) K/mcL Hgb 10.9 L (12.9-16.9) g/dL Hct 32.5 L (37.5-50.1) % Plt Count 272 (140-400) K/mcL BMP 10/23/17 05:38 Sodium 134 L Potassium 4.3 Chloride 95 L Carbon Dioxide 26 BUN 58 H Creatinine 3.58 H Glucose 342 H Calcium 9.2 - ABG Interpretation ABG results: PT/INR, D-dimer PT 17.1 Seconds (9.4-12.1) H 10/23/17 05:38 - Attending Attestation I examined this patient and my medical decision-making was reviewed with the Resident Physician. I agree with the documented findings, disposition and treatment plan as described except to the extent set forth below. <CurtisFidencio monson - Last Filed: 10/23/17 08:46> (1) Nonhealing surgical wound Qualifiers: Encounter type: initial encounter Qualified Code(s): T81.89XA - Other complications of procedures, not elsewhere classified, initial encounter (2) Hypertension Qualifiers: Hypertension type: essential hypertension Qualified Code(s): I10 - Essential (primary) hypertension (3) CAD (coronary artery disease) Qualifiers: Coronary Disease-Associated Artery/Lesion type: [place] artery [place] vs. 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 Diabetes mellitus complication status : with skin complications Diabetes mellitus complication detail: with foot ulcer Qualified Code(s): E11.621 - Type 2 diabetes mellitus with foot ulcer; L97.509 - Non-pressure chronic ulcer of other part of unspecified foot with unspecified severity (8) Diabetic ulcer of right foot Qualifiers: Diabetic foot ulcer location: other Diabetes mellitus type: type 2 Non- pressure ulcer stage: with fat layer exposed Qualified Code(s): E11.621 - Type 2 diabetes mellitus with foot ulcer; L97.512 - Non-pressure chronic ulcer of other part of right foot with fat layer exposed (9) Atrial fibrillation Qualifiers: Atrial fibrillation type: chronic Qualified Code(s): I48.2 - Chronic atrial fibrillation <Mich Emerson - Last Filed: 10/23/17 14:41> (1) Hypertension Qualifiers: Hypertension type: essential hypertension Qualified Code(s): I10 - Essential (primary) hypertension (2) CAD (coronary artery disease) Qualifiers: Coronary Disease-Associated Artery/Lesion type: [place] artery [place] vs. 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: unspecified senior care insulin use status Diabetes mellitus complication status : with skin complications Diabetes mellitus complication detail: with foot ulcer Qualified Code(s): E11.621 - Type 2 diabetes mellitus with foot ulcer; L97.509 - Non-pressure chronic ulcer of other part of unspecified foot with unspecified severity (8) Diabetic ulcer of right foot Qualifiers: Diabetic foot ulcer location: other Diabetes mellitus type: type 2 Non- pressure ulcer stage: with fat layer exposed Qualified Code(s): E11.621 - Type 2 diabetes mellitus with foot ulcer; L97.512 - Non-pressure chronic ulcer of other part of right foot with fat layer exposed (9) Atrial fibrillation Qualifiers: Atrial fibrillation type: chronic Qualified Code(s): I48.2 - Chronic atrial fibrillation (10) Nonhealing surgical wound Qualifiers: Encounter type: initial encounter Qualified Code(s): T81.89XA - Other complications of procedures, not elsewhere classified, initial encounter
[2017-10-23] MEDS ORDERED: Insulin DETEMIR 100 UNIT/ML X5UNITS SQ SCH (09:00)
[2017-10-23] MEDS: Insulin DETEMIR 100 UNIT/ML X5UNITS SQ SCH ×2 (09:05→22:19)
--- NOTE | 2017-10-23 09:05 | Infectious Disease Progress No ---
Date of Encounter: 10/23/17 Time of Encounter: 08:40 - Assessment and Plan (1) Cellulitis of artificial external opening following surgery Current Visit: Yes Status: Acute Accidental injury with right navicular and lisfranc dislocations. Status post surgery with pin placement on 09/03/17. POD #1 status post removal of external fixators. Causative organism: unknown Vancomycin and zosyn discontinued. Continue augmentin 500mg q24h and Bactrim 1 single-strength tablet q24h through 10/30 for 10 day course. Monitor renal function and for drug toxicity and dose-adjust antibiotics. Wound care. Podiatry consulted and following. Qualifiers: Encounter type: initial encounter Qualified Code(s): T81.4XXA - Infection following a procedure, initial encounter; L03.90 - Cellulitis, unspecified (2) ESRD (end stage renal disease) on dialysis Current Visit: Yes Status: Chronic Dialysis schedule Mon/Wed/Fri Nephrology consulted and following. (3) Closed dislocation of navicular bone of right foot Current Visit: No Status: Acute Accidental injury with right navicular and lisfranc dislocations. Status post surgery with pin placement on 09/03/17. POD #1 status post removal of external fixators. Podiatry consulted and following. Qualifiers: Encounter type: initial encounter Qualified Code(s): S93.314A - Dislocation of tarsal joint of right foot, initial encounter (4) PVD (peripheral vascular disease) Current Visit: Yes Status: Chronic Complicated by diabetes. On Coumadin with heparin bridge. Management per primary team. (5) Insulin dependent type 2 diabetes mellitus Current Visit: No Status: Chronic Sliding scale insulin (6) Hypertension Current Visit: Yes Status: Chronic On hydralazine, metoprolol Qualifiers: Hypertension type: essential hypertension Qualified Code(s): I10 - Essential (primary) hypertension (7) CAD (coronary artery disease) Current Visit: No Status: Chronic On ASA, metoprolol, crestor Qualifiers: Coronary Disease-Associated Artery/Lesion type: [place] artery [place] vs. transplanted heart: [place] heart Associated angina: without angina Qualified Code(s): I25.10 - Atherosclerotic heart disease of [place] coronary artery without angina pectoris (8) History of DVT (deep vein thrombosis) Current Visit: Yes Status: Acute On Coumadin with heparin bridge (9) Atrial fibrillation Current Visit: Yes Status: Chronic On metoprolol and Coumadin. Qualifiers: Atrial fibrillation type: chronic Qualified Code(s): I48.2 - Chronic atrial fibrillation (10) Hypothyroidism Current Visit: Yes Status: Chronic On levothyroxine Qualifiers: Hypothyroidism type: unspecified Qualified Code(s): E03.9 - Hypothyroidism , unspecified - Subjective Interval history: Patient seen and examined. No acute events overnight. Patient is resting comfortably in bed. Patient states he ate pizza last night and he had burning in his stomach this morning. The burning went away after drinking milk. Patient also reports pain in his groin on both sides. States his legs feel stiff from being in bed so long. States swelling in right leg, there is no swelling on exam. Right foot is well-dressed without any evidence of bleeding or drainage. Patient denies fever, chills. Denies chest pain, shortness of breath. Denies nausea/vomiting, abdominal pain, diarrhea/constipation. Denies urinary symptoms. Denies new numbness, tingling. Infect Dis PN-Objective Data - Labs CBC & Chem 7: 10/23/17 05:38 10/23/17 05:38 Labs: Laboratory Results - last 24 hr 10/22/17 10/22/17 10/22/17 07:57 10:08 10:09 WBC RBC Hgb Hct MCV MCH MCHC RDW Plt Count MPV PT INR Sodium Potassium Chloride Carbon Dioxide BUN Creatinine Est GFR ( Amer) Est GFR (Non-Af Amer) BUN/Creatinine Ratio Glucose POC Glucose 387 H 434 H* 429 H* Calculated Osmolality Calcium Random Vancomycin 10/22/17 10/22/17 10/22/17 11:30 12:11 16:53 WBC RBC Hgb Hct MCV MCH MCHC RDW Plt Count MPV PT INR Sodium Potassium Chloride Carbon Dioxide BUN Creatinine Est GFR ( Amer) Est GFR (Non-Af Amer) BUN/Creatinine Ratio Glucose POC Glucose 426 H* 338 H 272 H Calculated Osmolality Calcium Random Vancomycin 10/22/17 10/23/17 10/23/17 20:11 05:38 05:38 WBC 9.7 RBC 3.57 L Hgb 10.9 L Hct 32.5 L MCV 91.0 MCH 30.5 MCHC 33.5 RDW 14.6 H Plt Count 272 MPV 10.5 PT 17.1 H INR 1.5 Sodium Potassium Chloride Carbon Dioxide BUN Creatinine Est GFR ( Amer) Est GFR (Non-Af Amer) BUN/Creatinine Ratio Glucose POC Glucose 315 H Calculated Osmolality Calcium Random Vancomycin 10/23/17 10/23/17 05:38 05:38 WBC RBC Hgb Hct MCV MCH MCHC RDW Plt Count MPV PT INR Sodium 134 L Potassium 4.3 Chloride 95 L Carbon Dioxide 26 BUN 58 H Creatinine 3.58 H Est GFR ( Amer) 21 L Est GFR (Non-Af Amer) 18 L BUN/Creatinine Ratio 16 Glucose 342 H POC Glucose Calculated Osmolality 308 H Calcium 9.2 Random Vancomycin 15 Cultures: Serology 10/21/17 Range/Units 09:02 Hep Bs Antigen Nonreactive (Nonreactive) Hep Bs Antibody 0.00 mIU/mL Exam - Constitutional Vitals: Temp Pulse Resp BP Pulse Ox 98.1 F 74 16 152/77 96 10/23/17 08:02 10/23/17 08:02 10/23/17 08:02 10/23/17 08:02 10/23/17 08:02 General appearance: cooperative, morbidly obese, no acute distress, no febrile - Head Head exam: Present: atraumatic, normal inspection, normocephalic - ENT ENT exam: Present: mucous membranes moist, normal oropharynx - Neck Neck exam: Present: normal inspection - Respiratory Respiratory exam: Present: CTAB. Absent: rales, respiratory distress, rhonchi, wheezes - Cardiovascular Cardiovascular exam: Present: RRR, +S1, +S2 - GI/Abdominal GI/Abdominal exam: Present: distended (obese), normal bowel sounds, soft. Absent: tenderness - Extremities Exam Extremities exam: Absent: joint swelling, normal inspection (Right foot well- dressed without evidence of bleeding or drainage. Chronic venous stasis changes on left leg. ), pedal edema, tenderness - Neurological Exam Neurological exam: Present: alert, oriented X3 - Psychiatric Psychiatric exam: Present: normal affect, normal mood - Skin Skin exam: Present: dry, intact, warm Consult Discharge Plan - Plan Referrals: Joan Lockhart [Primary Care Provider] - - Attending Attestation I examined this patient and my medical decision-making was reviewed with the Resident Physician. I agree with the documented findings, disposition and treatment plan as described except to the extent set forth below.
[2017-10-23] MEDS ORDERED: 0.9 % Sodium Chloride 250 ML IVC PRN ×3 (09:13→11:58)
[2017-10-23] MEDS ORDERED: Warfarin perPT PO PRN (11:15)
[2017-10-23] MEDS ORDERED: *HR* Heparin 5,000 UNIT/ML VIAL ONE (11:30)
--- NOTE | 2017-10-23 12:18 | Podiatry Progress Note ---
Date of Encounter: 10/23/17 Time of Encounter: 12:00 - Assessment and Plan (1) Closed dislocation of navicular bone of right foot Current Visit: Yes Status: Acute s/p removal of ex-fix and 2nd TMT AD. says he is doing okay. patient seen in dialysis. says he is staying off the foot. posterior splint clean, dry and intact. no strikethrough. patient is stable from the standpoint of his right foot. follow up in office next week. Qualifiers: Encounter type: subsequent encounter Qualified Code(s): S93.314D - Dislocation of tarsal joint of right foot, subsequent encounter Subjective Principal diagnosis: OR this afternoon Objective - Vital Signs Vital Signs: Vital Signs Temp Pulse Resp BP Pulse Ox 10/23/17 10:05 98.4 F 77 16 127/70 96 10/23/17 08:02 98.1 F 74 16 152/77 96 10/23/17 04:15 98.4 F 71 18 155/73 93 10/23/17 01:05 98.5 F 72 17 138/68 94 10/22/17 19:54 98.3 F 76 17 176/76 96 10/22/17 16:55 98.1 F 68 18 151/77 96 Intake and Output 10/22/17 10/23/17 10/23/17 23:59 07:59 15:59 Intake Total 480 / 480 Output Total 725 / 725 475 / 475 Balance -725 / -725 -475 / -475 480 / 480 Intake: Oral 480 / 480 Output: Urine 475 / 475 Catheter 725 / 725 Other: Meal Breakfast Percent of Meal Consumed 100% Stool Size Moderate Moderate Stool Consistency loose soft soft Stool Color Brown Brown Yellow Weight 156.2 kg Blood Glucose* 315 233 Patient Weight 10/23/17 23:59 Weight 156.2 kg - Lab Result Diagrams: 10/23/17 05:38 10/23/17 05:38 Labs: Abnormal lab results RBC 3.57 M/mcL (4.19-5.50) L 10/23/17 05:38 Hgb 10.9 g/dL (12.9-16.9) L 10/23/17 05:38 Hct 32.5 % (37.5-50.1) L 10/23/17 05:38 RDW 14.6 % (11.5-14.5) H 10/23/17 05:38 Neutrophils # 9.2 K/mcL (1.6-8.9) H 10/22/17 04:28 PT 17.1 Seconds (9.4-12.1) H 10/23/17 05:38 Sodium 134 mEq/L (136-145) L 10/23/17 05:38 Chloride 95 mEq/L (98-107) L 10/23/17 05:38 BUN 58 mg/dL (6-20) H 10/23/17 05:38 Creatinine 3.58 mg/dL (0.70-1.30) H 10/23/17 05:38 Est GFR ( Amer) 21 (> 60) L 10/23/17 05:38 Est GFR (Non-Af Amer) 18 (> 60) L 10/23/17 05:38 Glucose 342 mg/dL (70-105) H 10/23/17 05:38 POC Glucose 315 mg/dL (70-99) H 10/22/17 20:11 Calculated Osmolality 308 (280-300) H 10/23/17 05:38 Consult Discharge Plan - Plan Referrals: Joan Lockhart [Primary Care Provider] -
[2017-10-23] MEDS: Furosemide 40 MG TABLET PO SCH ×2 (13:46→17:47)
[2017-10-23] MEDS: Aspirin Enteric Coated 81 MG Tablet PO SCH (13:51)
[2017-10-23] MEDS: hydrALAZINE 25 MG TABLET PO SCH ×2 (13:51→22:16)
[2017-10-23] MEDS: Metoprolol XL (24 HR) Succ 50 MG TAB.ER.24H PO SCH (13:51)
[2017-10-23] MEDS: Folic Acid 1 MG TABLET PO SCH (13:52)
[2017-10-23] MEDS: Gabapentin 300 MG CAPSULE PO SCH (13:52)
[2017-10-23] MEDS: Amoxicillin/Clavulanate 500 MG TABLET PO SCH (17:47)
[2017-10-23] MEDS: Sulfamethoxazole/Trimeth SS 1 TAB PO SCH (17:47)
[2017-10-23] MEDS ORDERED: *HR* Warfarin 7.5 MG TABLET PO ONE (18:00)
[2017-10-23] MEDS: *HR* OxyCODONE Immed Rel 5 MG TABLET PO PRN (22:16)
[2017-10-24 06:21] LABS: Basophils # 0.1 K/mcL (0.0-0.2); Basophils % 0.7 %; Eosinophils # 0.4 K/mcL (0.0-0.6); Hematocrit 33.3 % (37.5-50.1); Hemoglobin 10.8 g/dL (12.9-16.9); Immature Granulocytes % 0.4 % (0-4); Lymphocytes # 1.7 K/mcL (0.6-4.6); Mean Corpuscular HGB Conc 32.4 g/dL (31.6-35.5); Mean Corpuscular Hemoglobin 29.8 pg (28.0-33.3); Mean Platelet Volume 10.1 fL (9.4-12.4); Monocytes # 0.8 K/mcL (0.0-1.3); Monocytes % 10.3 %; Neutrophils # 4.4 K/mcL (1.6-8.9); Platelet Count 282 K/mcL (140-400); Red Blood Count 3.62 M/mcL (4.19-5.50); Red Cell Distribution Width 14.6 % (11.5-14.5); Segmented Neutrophils % 59.6 %
[2017-10-24 06:27] LABS: INR 1.7; Prothrombin Time 19.1 Seconds (9.4-12.1)
[2017-10-24] MEDS: *HR* Heparin 5,000 UNIT/ML VIAL SQ SCH (06:31)
[2017-10-24 06:42] LABS: Calcium 9.4 mg/dL (8.6-10.3); Potassium 3.9 mEq/L (3.5-5.1)
[2017-10-24] MEDS: Furosemide 40 MG TABLET PO SCH ×2 (07:52→08:13)
[2017-10-24] MEDS: Insulin LISPRO 300 UNITS/3 ML VIAL SQ SCH ×5 (07:52→12:00)
[2017-10-24] MEDS: Calcium Acetate 667 MG CAPSULE PO SCH ×2 (08:11→11:59)
[2017-10-24] MEDS: hydrALAZINE 25 MG TABLET PO SCH (08:11)
[2017-10-24] MEDS: Metoprolol XL (24 HR) Succ 50 MG TAB.ER.24H PO SCH (08:11)
[2017-10-24] MEDS: Folic Acid 1 MG TABLET PO SCH (08:13)
[2017-10-24] MEDS: Gabapentin 300 MG CAPSULE PO SCH (08:13)
[2017-10-24] MEDS: Aspirin Enteric Coated 81 MG Tablet PO SCH (08:13)
--- NOTE | 2017-10-24 08:21 | Discharge Summary ---
- NOTES TO OUTPATIENT PROVIDER Notes to Outpatient Provider: - Glucose/ Insulin dosing. Home with Levemir 60 BID with Humalog with meals. Compliance is issue. Orders not resulted at time of discharge: Pending orders 10/25/17 04:00 Basic Metabolic Panel AM 0400 CBC no Diff [Complete Blood Count w/o Diff] [HEME] AM 0400 INR/PT [Prothrombin Time INR] [COAG] AM 04010/26/17 04:00 Basic Metabolic Panel AM 0400 CBC no Diff [Complete Blood Count w/o Diff] [HEME] AM 04010/27/17 04:00 Basic Metabolic Panel AM 0400 CBC no Diff [Complete Blood Count w/o Diff] [HEME] AM 0400 Date of Encounter: 10/24/17 Time of Encounter: 08:21 - Discharge Diagnosis (1) Closed dislocation of navicular bone of right foot Priority: Primary Status: Acute Qualifiers: Encounter type: subsequent encounter Qualified Code(s): S93.314D - Dislocation of tarsal joint of right foot, subsequent encounter (2) Cellulitis of artificial external opening following surgery Priority: Secondary Status: Acute Qualifiers: Encounter type: initial encounter Qualified Code(s): T81.4XXA - Infection following a procedure, initial encounter; L03.90 - Cellulitis, unspecified (3) Nonhealing surgical wound Priority: Secondary Status: Acute Qualifiers: Encounter type: initial encounter Qualified Code(s): T81.89XA - Other complications of procedures, not elsewhere classified, initial encounter (4) Hypertension Priority: Secondary Status: Chronic Qualifiers: Hypertension type: essential hypertension Qualified Code(s): I10 - Essential (primary) hypertension (5) CAD (coronary artery disease) Priority: Secondary Status: Chronic Qualifiers: Coronary Disease-Associated Artery/Lesion type: [place] artery [place] vs. transplanted heart: [place] heart Associated angina: without angina Qualified Code(s): I25.10 - Atherosclerotic heart disease of [place] coronary artery without angina pectoris (6) DVT prophylaxis Priority: Secondary Status: Acute (7) HLD (hyperlipidemia) Priority: Secondary Status: Chronic Qualifiers: Hyperlipidemia type: unspecified Qualified Code(s): E78.5 - Hyperlipidemia , unspecified (8) PVD (peripheral vascular disease) Priority: Secondary Status: Chronic (9) Hypothyroidism Priority: Secondary Status: Chronic Qualifiers: Hypothyroidism type: unspecified Qualified Code(s): E03.9 - Hypothyroidism , unspecified (10) Diabetes Priority: Secondary Status: Chronic Qualifiers: Diabetes mellitus type: type 2 Diabetes mellitus long-term insulin use: unspecified long-term insulin use status Diabetes mellitus complication status : with skin complications Diabetes mellitus complication detail: with foot ulcer Qualified Code(s): E11.621 - Type 2 diabetes mellitus with foot ulcer; L97.509 - Non-pressure chronic ulcer of other part of unspecified foot with unspecified severity (11) Diabetic ulcer of right foot Priority: Secondary Status: Acute Qualifiers: Diabetic foot ulcer location: other Diabetes mellitus type: type 2 Non- pressure ulcer stage: with fat layer exposed Qualified Code(s): E11.621 - Type 2 diabetes mellitus with foot ulcer; L97.512 - Non-pressure chronic ulcer of other part of right foot with fat layer exposed (12) Atrial fibrillation Priority: Secondary Status: Chronic Qualifiers: Atrial fibrillation type: chronic Qualified Code(s): I48.2 - Chronic atrial fibrillation (13) ESRD (end stage renal disease) on dialysis Priority: Secondary Status: Chronic (14) History of DVT (deep vein thrombosis) Priority: Secondary Status: Acute Hospital course: Mr. Oneal is a 57 year old male with history of diabetes, atrial fibrillation , DVTs on coumadin, heart failure, COPD, CKD on dialysis, and hypertension presented to the ED at request of Podiatry for admission. Patient has had trauma to his right foot with ankle fracture. He has had placement of external fixators placed prior to admission. He is scheduled for surgery in 2 days. However, patient was having worsening of right foot wound where metal fixators are and swelling of right foot recently and therefore coming in earlier. On arrival to ED it was noted his right foot had foul odor and discharge. He is hemodynamically stable. He was emperically placed on vanc/Zosyn for cellulitis of foot. Podiatry was consulted and patient underwent removal of external fixators on 10/22/17, tolerated well. ID was consulted for cellulitis and patient was placed on Bactrim and Augmentin. Patient had glucose in 400s on admission and is non-compliant with U-500 insulin at home. During this admission he was titrated up to Levemir 60 BID and glucose was well controlled. He will be discharged with scripts for Levemir and Humalog. We discussed importance of compliance as he runs glucose >400s at home. - Time Spent with Patient Total time spent providing and/or coordinating discharge services: - Discharge Medications Prescriptions: OxyCODONE Immed Rel [Roxicodone 5 MG] 5 mg PO Q6HR PRN 3 Days #12 tablet PRN Reason: Severe Pain Amoxicillin/Clavulanate [Augmentin] 500 mg PO Q24H #6 tablet Insulin DETEMIR [Levemir] 60 unit SQ BID #3600 units Sulfamethoxazole/Trimeth SS [Bactrim SS] 1 tab PO Q24H #6 tablet Home Medications: Allopurinol [Zyloprim 100 MG] 100 mg PO DAILY 05/23/17 [History] Aspirin Enteric Coated [Aspirin EC] 81 mg PO DAILY 05/23/17 [History] Calcium Acetate [Phos-LO] 1,334 mg PO TIDWM 05/23/17 [History] Ezetimibe [Zetia] 10 mg PO DAILY 05/23/17 [History] Folic Acid 1 mg PO DAILY 05/23/17 [History] Furosemide [Lasix] 40 mg PO BID 05/23/17 [History] Gemfibrozil [Lopid] 600 mg PO BIDWM 05/23/17 [History] Hydralazine HCl 50 mg PO BID 05/23/17 [History] Levothyroxine [Synthroid] 200 mcg PO DAILY 05/23/17 [History] Rosuvastatin Calcium [Crestor] 40 mg PO DAILY 05/23/17 [History] Warfarin [Coumadin] 10 mg PO QPM 05/23/17 [History] Gabapentin [Neurontin] 300 mg PO DAILY 09/02/17 [History] Metoprolol Succinate [Toprol Xl] 100 mg PO DAILY 09/02/17 [History] Amoxicillin/Clavulanate [Augmentin] 500 mg PO Q24H #6 tablet 10/24/17 [Rx] Insulin DETEMIR [Levemir] 60 unit SQ BID #3600 units 10/24/17 [Rx] Insulin LISPRO [HumaLOG] 30 units SQ TIDWM #2700 units 10/24/17 [Rx] OxyCODONE Immed Rel [Roxicodone 5 MG] 5 mg PO Q6HR PRN 3 Days #12 tablet [Rx] Sulfamethoxazole/Trimeth SS [Bactrim SS] 1 tab PO Q24H #6 tablet 10/24/17 [Rx] Allergies/Adverse Reactions: 3 Allergy/AdvReac Type Severity Reaction Status Date / Time Iodinated Contrast- Oral and Allergy Swelling Verified 10/14/17 15:40 IV Dye of [Iodinated Contrast Media - Lip/Tongue/Throat Oral and] red dye Allergy Rash Verified 10/14/17 15:40 Date of admission: 10/20/17 16:00 Primary care physician: Joan Lockhart Consults: 10/21/17 07:45 Consult to Dialysis [CONS] ONCE 10/22/17 09:40 Consult to Infectious Diseases [CONS] Routine Consulting Provider: Infectious Disease Marva Reason for Consult: Non healing surgical wound. Unsure if infected. Would like second opinion. Call Completed: Yes 10/23/17 10:00 Consult to Dialysis [CONS] ONCE Discharging clinician: Mich Emerson - Constitutional Vitals: Temp Pulse Resp BP Pulse Ox 98.9 F 72 18 171/82 96 10/24/17 06:47 10/24/17 06:47 10/24/17 06:47 10/24/17 06:47 10/24/17 06:47 Exam: Gen: AAOx3, NAD CVS: RRR Lungs: CTAB Abd: Soft, nt/nd Extremities: right foot wrapped post op and clean dressing, no active drainage or bleeding, erythema improved. - Patient Status Disposition: Home Health Service Condition: Good Functional capacity at discharge: independent ambulation Overall status at discharge: patient is progressing back to baseline - Discharge Instructions Follow Up With: Joan Lockhart [Primary Care Provider] - - Diet and Activity Activity: other (As per Podiatry instructions) Diet: diabetic diet, low fat, low cholesterol, low salt diet
--- NOTE | 2017-10-24 08:21 | Physician Discharge Referral ---
Home Health/Hosp Referral Info Transfer to: Home Health Provider in Charge Post Discharge: PCP - Diagnosis (1) Diabetic ulcer of right foot Priority: Secondary Status: Acute (2) Diabetes Priority: Secondary Status: Chronic (3) Hypertension Priority: Secondary Status: Chronic (4) CAD (coronary artery disease) Priority: Secondary Status: Chronic (5) DVT prophylaxis Priority: Secondary Status: Acute (6) HLD (hyperlipidemia) Priority: Secondary Status: Chronic (7) PVD (peripheral vascular disease) Priority: Secondary Status: Chronic (8) Hypothyroidism Priority: Secondary Status: Chronic (9) Atrial fibrillation Priority: Secondary Status: Chronic (10) Nonhealing surgical wound Priority: Secondary Status: Acute (11) ESRD (end stage renal disease) on dialysis Priority: Secondary Status: Chronic (12) History of DVT (deep vein thrombosis) Priority: Secondary Status: Acute - Respiratory Orders Smoking Cessation: Smoking cessation has been advised. For more information, call the [email or web address] Quit Line at [phone]. - Diet/Nutrition Diet/Nutrition Orders: Cardiac, No Concentrated Sweets - Activity Activity: List: As per Podiatry instructions. - Services Needed Following services are medically necessary services: Intermediate Care Orders: Needs help with insulin administration, glucose checks. - Transfer Medications Prescriptions: OxyCODONE Immed Rel [Roxicodone 5 MG] 5 mg PO Q6HR PRN 3 Days #12 tablet PRN Reason: Severe Pain Amoxicillin/Clavulanate [Augmentin] 500 mg PO Q24H #6 tablet Insulin DETEMIR [Levemir] 60 unit SQ BID #3600 units Insulin LISPRO [HumaLOG] 30 units SQ TIDWM #2700 units Sulfamethoxazole/Trimeth SS [Bactrim SS] 1 tab PO Q24H #6 tablet Home Medications: Allopurinol [Zyloprim 100 MG] 100 mg PO DAILY 05/23/17 [History] Aspirin Enteric Coated [Aspirin EC] 81 mg PO DAILY 05/23/17 [History] Calcium Acetate [Phos-LO] 1,334 mg PO TIDWM 05/23/17 [History] Ezetimibe [Zetia] 10 mg PO DAILY 05/23/17 [History] Folic Acid 1 mg PO DAILY 05/23/17 [History] Furosemide [Lasix] 40 mg PO BID 05/23/17 [History] Gemfibrozil [Lopid] 600 mg PO BIDWM 05/23/17 [History] Hydralazine HCl 50 mg PO BID 05/23/17 [History] Levothyroxine [Synthroid] 200 mcg PO DAILY 05/23/17 [History] Rosuvastatin Calcium [Crestor] 40 mg PO DAILY 05/23/17 [History] Warfarin [Coumadin] 10 mg PO QPM 05/23/17 [History] Gabapentin [Neurontin] 300 mg PO DAILY 09/02/17 [History] Metoprolol Succinate [Toprol Xl] 100 mg PO DAILY 09/02/17 [History] Amoxicillin/Clavulanate [Augmentin] 500 mg PO Q24H #6 tablet 10/24/17 [Rx] Insulin DETEMIR [Levemir] 60 unit SQ BID #3600 units 10/24/17 [Rx] Insulin LISPRO [HumaLOG] 30 units SQ TIDWM #2700 units 10/24/17 [Rx] OxyCODONE Immed Rel [Roxicodone 5 MG] 5 mg PO Q6HR PRN 3 Days #12 tablet [Rx] Sulfamethoxazole/Trimeth SS [Bactrim SS] 1 tab PO Q24H #6 tablet 10/24/17 [Rx] Allergies/Adverse Reactions: 3 Allergy/AdvReac Type Severity Reaction Status Date / Time Iodinated Contrast- Oral and Allergy Swelling Verified 10/14/17 15:40 IV Dye of [Iodinated Contrast Media - Lip/Tongue/Throat Oral and] red dye Allergy Rash Verified 10/14/17 15:40 Certification: Further, I certify that my clinical findings support that this patient is homebound (i.e. absences from home require considerable and taxing effort and are for medical reasons or holiness services or infrequently or short duration when for other reasons) because: Homebound Reason: Patient requires assistance of a person or device to safely leave home Attestation: My signature below is to certify that this patient is under my care and that I, or nurse practitioner, or a physician's dietetic assistant working with me, has a face-to -face encounter with this patient.
[2017-10-24] MEDS: Insulin DETEMIR 100 UNIT/ML X5UNITS SQ SCH (08:31)
--- NOTE | 2017-10-24 09:45 | Nephrology Progress Note ---
Date of Encounter: 10/24/17 Time of Encounter: 09:45 - Assessment and Plan (1) Diabetes Status: Chronic Per primary. Qualifiers: Diabetes mellitus type: type 2 Diabetes mellitus fdc insulin use: unspecified adjunct faculty for medical terminology insulin use status Diabetes mellitus complication status : with skin complications Diabetes mellitus complication detail: with foot ulcer Qualified Code(s): E11.621 - Type 2 diabetes mellitus with foot ulcer; L97.509 - Non-pressure chronic ulcer of other part of unspecified foot with unspecified severity (2) ESRD (end stage renal disease) on dialysis Status: Chronic Current regimen is MWF in [place] with Maureen. Strict I/O Avoid nephrotoxins and renal dose all medications. Renal diet, when able to eat. (3) Closed dislocation of navicular bone of right foot Status: Acute Per Podiatry. Qualifiers: Encounter type: subsequent encounter Qualified Code(s): S93.314D - Dislocation of tarsal joint of right foot, subsequent encounter Subjective Principal diagnosis: OR this afternoon Interval history: Patient seen. No new complaint. Objective - Vital Signs Vital signs: Vital Signs Temp Pulse Resp BP Pulse Ox 10/24/17 06:47 98.9 F 72 18 171/82 96 10/24/17 04:54 98.3 F 68 20 148/79 96 10/24/17 00:27 97.9 F 73 18 149/82 97 10/23/17 22:07 99.1 F 72 16 155/82 93 10/23/17 16:42 99.1 F 81 17 114/57 95 10/23/17 13:10 97.2 F L 15 131/70 10/23/17 13:00 111/71 10/23/17 12:45 125/73 10/23/17 12:30 111/71 10/23/17 12:15 116/64 10/23/17 12:00 110/94 10/23/17 11:45 105/61 10/23/17 11:30 124/67 10/23/17 11:15 117/68 10/23/17 11:00 121/64 10/23/17 10:45 125/68 10/23/17 10:30 98.4 F 17 126/68 10/23/17 10:05 98.4 F 77 16 127/70 96 Intake and Output 09/10/24/17 10/24/17 23:59 07:59 15:59 Intake Total 480 / 480 120 / 120 Output Total 700 / 700 Balance 480 / 480 -700 / -700 120 / 120 Intake: Oral 480 / 480 120 / 120 Output: Urine 700 / 700 Other: Meal Dinner Breakfast Percent of Meal Consumed 100% 100% Stool Size Large Stool Consistency formed Stool Color Brown Weight 150.7 kg Blood Glucose* 168 159 Patient Weight 10/24/17 23:59 Weight 150.7 kg - General Appearance General appearance: Present: well-developed, well-nourished - Lab 10/24/17 05:58 10/24/17 05:58 Most recent lab results Calcium 9.4 mg/dL (8.6-10.3) 10/24/17 05:58 Consult Discharge Plan - Plan Instructions: Diabetes Mellitus Type 2 in Adults (DC) Referrals: Napoleon Bill DPM [Partnered Physician] - (Web request for appointment completed and recieved 10/24/2017) Joan Lockhart [Primary Care Provider] - (Follow-up with primary care provider following dischage from hospital ) Prescriptions: OxyCODONE Immed Rel [Roxicodone 5 MG] 5 mg PO Q6HR PRN 3 Days #12 tablet PRN Reason: Severe Pain Amoxicillin/Clavulanate [Augmentin] 500 mg PO Q24H #6 tablet Insulin DETEMIR [Levemir] 60 unit SQ BID #3600 units Insulin LISPRO [HumaLOG] 30 units SQ TIDWM #2700 units Sulfamethoxazole/Trimeth SS [Bactrim SS] 1 tab PO Q24H #6 tablet
[2017-10-24 11:17] VITALS: BP 153/87
== END 2017-10-24 14:35 | disposition home health service (06) | DRG 711 ==
LOC: EMEROOARM 12:39 → 2ANU 12:39 → SUATTDRO 16:00 → 2ANU 16:47
PROVIDERS: ADMIT Student in an Organized Health Care Education/Training Program; ATTEND Student in an Organized Health Care Education/Training Program

== ENCOUNTER 2018-02-17 06:47 | Observation (INO) ==
--- NOTE | 2018-02-17 07:25 | Emergency Department Note ---
Disposition Clinical Impression: Hyperglycemia Chest pain Qualifiers: Chest pain type: chest pain due to myocardial ischemia Ischemic chest pain type: stable angina pectoris Qualified Code(s): I20.8 - Other forms of angina pectoris Disposition: Admitted As Inpatient Condition: Good General Adult HPI - General Time Seen by Provider: 02/17/18 06:49 Source: patient, EMS Mode of arrival: EMS Limitations: no limitations Nursing Notes Reviewed: Yes Vital Signs Reviewed: Yes - History of Present Illness HPI Narrative: 57-year-old male with past medical history including end-stage renal disease on dialysis for a year on Thursday, Thursday, Fridays, coronary artery disease with one stent placement, atrial fibrillation on warfarin, congestive heart failure, type 2 diabetes mellitus, presenting with chief complaint of chest heaviness. Patient states his primary care physician started him on a new medication yesterday. He started Humalog 40 units which he took once yesterday. He fell asleep before taking his long acting insulin. This morning, the patient woke up and did not take any of his medications as he went to dialysis. While at dialysis, the patient complains of a tingly feeling throughout his entire body associated with nausea. He also complains of left sided chest heaviness and mild shortness of breath. He was put on 2 L of oxygen. Blood sugar was noted to be 400 at the dialysis center. Dialysis was not initiated and the patient was transferred here via EMS secondary to the chest heaviness. On arrival, the patient states his chest heaviness resolved and he only complains about the tingling. Denies vomiting, fevers, diarrhea. Patient is still able to produce urine. Pain Scale: 0 - Related Data Home Medications Medication Instructions Recorded Confirmed Allopurinol [Zyloprim 100 MG] 100 mg PO DAILY 05/23/17 02/17/18 Aspirin Enteric Coated [Aspirin EC] 81 mg PO DAILY 05/23/17 02/17/18 Calcium Acetate [Phos-LO] 1,334 mg PO TIDWM 05/23/17 02/17/18 Ezetimibe [Zetia] 10 mg PO DAILY 05/23/17 02/17/18 Folic Acid 1 mg PO DAILY 05/23/17 02/17/18 Furosemide [Lasix] 40 mg PO QPM 05/23/17 02/17/18 Gemfibrozil [Lopid] 600 mg PO BIDWM 05/23/17 02/17/18 Levothyroxine [Synthroid] 200 mcg PO DAILY 05/23/17 02/17/18 Rosuvastatin Calcium [Crestor] 40 mg PO DAILY 05/23/17 02/17/18 Metoprolol Succinate [Toprol Xl] 100 mg PO DAILY 09/02/17 01/21/18 Acetaminophen [Tylenol] 500 mg PO 2XW PRN 02/17/18 02/17/18 Hydralazine HCl 100 mg PO DAILY 02/17/18 02/17/18 Insulin Degludec [Tresiba 0 unit SQ AD 02/17/18 02/17/18 Flextouch U-200] Insulin LISPRO [Humalog Kwikpen] 20 - 60 unit SQ TIDAC 02/17/18 02/17/18 Nitrofurantoin Macrocrystal 100 mg PO BID 02/17/18 02/17/18 [Nitrofurantoin] Warfarin [Coumadin] 10 mg PO HS 02/17/18 02/17/18 Allergies Allergy/AdvReac Type Severity Reaction Status Date / Time Iodinated Contrast- Oral and Allergy Swelling Verified 02/17/18 09:13 IV Dye of [Iodinated Contrast Media - Lip/Tongue/Throat Oral and] red dye Allergy Rash Verified 02/17/18 09:13 All systems ED: reviewed and negative except as stated. Review of Systems: As Per HPI Constitutional: Denies: fever, chills ENT ED: Denies: congestion Cardiovascular: Reports: chest pain. Denies: palpitations Respiratory: Reports: dyspnea. Denies: cough Gastrointestinal: Reports: nausea. Denies: abdominal pain, vomiting Genitourinary: Denies: hematuria Musculoskeletal: Denies: back pain Neurological: Reports: other (Tingling). Denies: headache, weakness Past Medical History - Past Medical History Attestation: Yes The following information was validated with the patient. Source: patient Medical history: Reports: arthritis, atrial fibrillation, CHF, COPD, coronary artery disease, DVT, diabetes, dialysis, GERD, hyperlipidemia, hypertension, kidney stones, myocardial infarction, osteoporosis, peripheral artery disease, renal disease, thyroid disease, venous stasis, other Surgical history: Reports: other Psychiatric history: Reports: no psych history - Social History Smoking Status: Never smoker Smokeless Tobacco Status: No Alcohol use: Reports: none Drug use: Reports: none Physical Exam - General Limitations: no limitations General appearance: alert, in no apparent distress - Head Head exam: atraumatic, normocephalic - Eye Eye exam: Present: normal appearance, EOMI - ENT ENT exam: normal exam, mucous membranes moist - Chest Chest inspection: Present: normal inspection, symmetric chest wall rise - Respiratory Respiratory exam: Present: normal lung sounds bilaterally, other (On oxygen per nasal cannula). Absent: respiratory distress, wheezes - Cardiovascular Cardiovascular exam: Present: regular rate, normal rhythm - Abdominal Exam Abdominal exam: Present: soft, Non-Tender. Absent: tenderness, distention, guarding, rebound, rigidity - Extremities Exam Extremities exam: Present: other (Right below-knee amputation. No left lower extremity swelling.) - Neurological Exam Neurological exam: Present: alert, oriented X3 - Psychiatric Psychiatric exam: Present: normal affect, normal mood - Skin Skin exam: Present: warm, dry, intact, normal color Course Vital Signs Temperature 97.8 F 02/17/18 07:12 Pulse Rate 78 02/17/18 07:12 Respiratory Rate 18 02/17/18 07:12 Blood Pressure 153/74 02/17/18 07:12 O2 Sat by Pulse Oximetry 99 02/17/18 07:12 Temperature 97.8 F 02/17/18 07:12 Pulse Rate 78 02/17/18 08:40 Respiratory Rate 16 02/17/18 09:46 Blood Pressure 155/81 02/17/18 09:46 O2 Sat by Pulse Oximetry 99 02/17/18 08:40 Oxygen Delivery Oxygen Delivery Nasal Cannula Medical Decision Making - [facility] Narrative Medical decision making narrative: Patient is on dialysis and it was not initiated this morning secondary to chest heaviness. Patient was transferred here for further evaluation. Only complaining of face numbness and tingling now. We will obtain cardiac workup. HEART score 4. Check EKG, troponin, CBC, CMP. We will check chest x-ray. We wi ll give aspirin as the patient did not have any of his medications today. He is chest pain-free at this time. Oxygenating 100% on 2 L of oxygen per nasal cannula. Patient is supposed to be on oxygen at home but he has not been for some time as his oxygen tanks are empty. Patient's blood sugar is 368 and he is on a sliding scale. Previous paperwork, the patient should take 60 units of his Humalog so we will give this. Patient does follow Dr. Echols as his application support technician. 07:45 EKG with no acute ischemic changes. CXR without acute cardiopulmonary process. Troponin is 0.03. Sodium is 3.2. Potassium is normal. Cr is 3.60. Will call nephrology for the patient to be dialyzed. Will also call hospitalist for admission for chest pain. 09:[address] Castro, Nephrology, who will follow the patient in the ED. Will consult hospitalist for admission. 09:[address] Medina, hospitalist, who accepts admission. - Medical Records Medical records reviewed: Yes I reviewed the patient's medical records. - Lab Data Lab results reviewed: Yes I reviewed the patient's lab results. Result diagrams: 02/17/18 07:22 02/17/18 07:22 Lab Results 02/17/18 02/17/18 02/17/18 Range/Units 07:22 07:22 07:22 WBC 10.9 (4.3-11.1) K/mcL RBC 4.30 (4.19-5.50) M/mcL Hgb 12.7 L (12.9-16.9) g/dL Hct 39.1 (37.5-50.1) % MCV 90.9 (83.0-100.0) fL MCH 29.5 (28.0-33.3) pg MCHC 32.5 (31.6-35.5) g/dL RDW 15.8 H (11.5-14.5) % Plt Count 303 (140-400) K/mcL MPV 10.5 (9.4-12.4) fL Immature Gran % 0.6 (0-4) % Seg Neutrophils % 61.8 % Lymphocytes % 21.3 % Monocytes % 6.8 % Eosinophils % 8.7 % Basophils % 0.8 % Neutrophils # 6.7 (1.6-8.9) K/mcL Lymphocytes # 2.3 (0.6-4.6) K/mcL Monocytes # 0.7 (0.0-1.3) K/mcL Eosinophils # 1.0 H (0.0-0.6) K/mcL Basophils # 0.1 (0.0-0.2) K/mcL PT 36.2 H (9.4-12.1) Seconds INR 3.2 APTT 66.8 H (26.0-36.0) Seconds Sodium 132 L (136-145) mEq/L Potassium 4.8 (3.5-5.1) mEq/L Chloride 96 L (98-107) mEq/L Carbon Dioxide 24 (23-29) mEq/L BUN 59 H (6-20) mg/dL Creatinine 3.60 H (0.70-1.30) mg/dL Est GFR ( Amer) 21 L (> 60) Est GFR (Non-Af Amer) 18 L (> 60) BUN/Creatinine Ratio 16 (6-26) Glucose 412 H (70-105) mg/dL Calculated Osmolality 308 H (280-300) Calcium 9.1 (8.6-10.3) mg/dL Troponin I 0.03 (< 0.04) ng/mL - Radiology Data Radiology results reviewed: Yes I reviewed the patient's radiology results. Chest X-Ray 02/17/18 06:57 IMPRESSION: 1. No active pulmonary disease. D/ / Rafiq Garber MD / Rafiq Garber MD Interpreting Provider: Rafiq Garber MD - EKG Data EKG #1 EKG attestation: Yes I reviewed and interpreted this EKG. EKG results narrative: EKG from today taken at 0707 shows sinus rhythm with heart rate 78. AK interval 163. QRS duration 99. QTc 464. There is no ST elevation or depression. In lead 3, there is T-wave inversion. Compared to prior EKG on 01/21/2018. The T- wave inversion in lead 3 is new. Heart Score - Score History: Slightly Suspicious EKG: Non Specific repolarisation Disturbance Age: 45-65 Risk Factors: Equal/Greater than 3 risk factor or history of atherosclerotic disease Troponin: Less than normal limit HEART Score Total: 4
[2018-02-17] MEDS ORDERED: Aspirin 325 MG TABLET PO STA (07:33)
[2018-02-17 07:38] LABS: Basophils # 0.1 K/mcL (0.0-0.2); Basophils % 0.8 %; Eosinophils % 8.7 %; Hematocrit 39.1 % (37.5-50.1); Hemoglobin 12.7 g/dL (12.9-16.9); Immature Granulocytes % 0.6 % (0-4); Lymphocytes # 2.3 K/mcL (0.6-4.6); Lymphocytes % 21.3 %; Mean Corpuscular HGB Conc 32.5 g/dL (31.6-35.5); Mean Corpuscular Hemoglobin 29.5 pg (28.0-33.3); Mean Corpuscular Volume 90.9 fL (83.0-100.0); Mean Platelet Volume 10.5 fL (9.4-12.4); Monocytes # 0.7 K/mcL (0.0-1.3); Monocytes % 6.8 %; Neutrophils # 6.7 K/mcL (1.6-8.9); Platelet Count 303 K/mcL (140-400); Red Cell Distribution Width 15.8 % (11.5-14.5); Segmented Neutrophils % 61.8 %
--- NOTE | 2018-02-17 07:38 | Emergency Department Note ---
Disposition Clinical Impression: Chest pain, Hyperglycemia Disposition: Admitted As Inpatient Condition: Good General Adult HPI - General Chief complaint: ED Chest Pain Stated complaint: Chest Heavy Time Seen by Provider: 02/17/18 06:49 Source: patient, EMS Mode of arrival: EMS Limitations: no limitations - History of Present Illness Pain Scale: 0 - Related Data Home Medications Medication Instructions Recorded Confirmed Allopurinol [Zyloprim 100 MG] 100 mg PO DAILY 05/23/17 02/17/18 Aspirin Enteric Coated [Aspirin EC] 81 mg PO DAILY 05/23/17 02/17/18 Calcium Acetate [Phos-LO] 1,334 mg PO TIDWM 05/23/17 02/17/18 Ezetimibe [Zetia] 10 mg PO DAILY 05/23/17 02/17/18 Folic Acid 1 mg PO DAILY 05/23/17 02/17/18 Furosemide [Lasix] 40 mg PO QPM 05/23/17 02/17/18 Gemfibrozil [Lopid] 600 mg PO BIDWM 05/23/17 02/17/18 Levothyroxine [Synthroid] 200 mcg PO DAILY 05/23/17 02/17/18 Rosuvastatin Calcium [Crestor] 40 mg PO DAILY 05/23/17 02/17/18 Metoprolol Succinate [Toprol Xl] 100 mg PO DAILY 09/02/17 01/21/18 Acetaminophen [Tylenol] 500 mg PO 2XW PRN 02/17/18 02/17/18 Hydralazine HCl 100 mg PO DAILY 02/17/18 02/17/18 Insulin Degludec [Tresiba 0 unit SQ AD 02/17/18 02/17/18 Flextouch U-200] Insulin LISPRO [Humalog Kwikpen] 20 - 60 unit SQ TIDAC 02/17/18 02/17/18 Nitrofurantoin Macrocrystal 100 mg PO BID 02/17/18 02/17/18 [Nitrofurantoin] Warfarin [Coumadin] 10 mg PO HS 02/17/18 02/17/18 Allergies Allergy/AdvReac Type Severity Reaction Status Date / Time Iodinated Contrast- Oral and Allergy Swelling Verified 02/17/18 09:13 IV Dye of [Iodinated Contrast Media - Lip/Tongue/Throat Oral and] red dye Allergy Rash Verified 02/17/18 09:13 Constitutional: Denies: fever, chills ENT ED: Denies: congestion Cardiovascular: Reports: chest pain. Denies: palpitations Respiratory: Reports: dyspnea. Denies: cough Gastrointestinal: Reports: nausea. Denies: abdominal pain, vomiting Genitourinary: Denies: hematuria Musculoskeletal: Denies: back pain Neurological: Reports: other (Tingling). Denies: headache, weakness Past Medical History - Past Medical History Medical history: Reports: arthritis, atrial fibrillation, CHF, COPD, coronary artery disease, DVT, diabetes, dialysis, GERD, hyperlipidemia, hypertension, kidney stones, myocardial infarction, osteoporosis, peripheral artery disease, renal disease, thyroid disease, venous stasis, other Surgical history: Reports: other Psychiatric history: Reports: no psych history - Social History Smoking Status: Never smoker Smokeless Tobacco Status: No Alcohol use: Reports: none Drug use: Reports: none Physical Exam - General Limitations: no limitations General appearance: alert, in no apparent distress Course Vital Signs Temperature 97.8 F 02/17/18 07:12 Pulse Rate 78 02/17/18 07:12 Respiratory Rate 18 02/17/18 07:12 Blood Pressure 153/74 02/17/18 07:12 O2 Sat by Pulse Oximetry 99 02/17/18 07:12 Temperature 97.8 F 02/17/18 07:12 Pulse Rate 78 02/17/18 08:40 Respiratory Rate 16 02/17/18 09:46 Blood Pressure 155/81 02/17/18 09:46 O2 Sat by Pulse Oximetry 99 02/17/18 08:40 Oxygen Delivery Oxygen Delivery Nasal Cannula Medical Decision Making - Lab Data Result diagrams: 02/17/18 07:22 02/17/18 07:22 Lab Results 02/17/18 02/17/18 02/17/18 Range/Units 06:59 07:22 07:22 WBC 10.9 (4.3-11.1) K/mcL RBC 4.30 (4.19-5.50) M/mcL Hgb 12.7 L (12.9-16.9) g/dL Hct 39.1 (37.5-50.1) % MCV 90.9 (83.0-100.0) fL MCH 29.5 (28.0-33.3) pg MCHC 32.5 (31.6-35.5) g/dL RDW 15.8 H (11.5-14.5) % Plt Count 303 (140-400) K/mcL MPV 10.5 (9.4-12.4) fL Immature Gran % 0.6 (0-4) % Seg Neutrophils % 61.8 % Lymphocytes % 21.3 % Monocytes % 6.8 % Eosinophils % 8.7 % Basophils % 0.8 % Neutrophils # 6.7 (1.6-8.9) K/mcL Lymphocytes # 2.3 (0.6-4.6) K/mcL Monocytes # 0.7 (0.0-1.3) K/mcL Eosinophils # 1.0 H (0.0-0.6) K/mcL Basophils # 0.1 (0.0-0.2) K/mcL PT 36.2 H (9.4-12.1) Seconds INR 3.2 APTT 66.8 H (26.0-36.0) Seconds Sodium (136-145) mEq/L Potassium (3.5-5.1) mEq/L Chloride (98-107) mEq/L Carbon Dioxide (23-29) mEq/L BUN (6-20) mg/dL Creatinine (0.70-1.30) mg/dL Est GFR ( Amer) (> 60) Est GFR (Non-Af Amer) (> 60) BUN/Creatinine Ratio (6-26) Glucose (70-105) mg/dL POC Glucose 368 H (70-99) mg/dL Calculated Osmolality (280-300) Calcium (8.6-10.3) mg/dL Troponin I (< 0.04) ng/mL 02/17/18 02/17/18 Range/Units 07:22 09:09 WBC (4.3-11.1) K/mcL RBC (4.19-5.50) M/mcL Hgb (12.9-16.9) g/dL Hct (37.5-50.1) % MCV (83.0-100.0) fL MCH (28.0-33.3) pg MCHC (31.6-35.5) g/dL RDW (11.5-14.5) % Plt Count (140-400) K/mcL MPV (9.4-12.4) fL Immature Gran % (0-4) % Seg Neutrophils % % Lymphocytes % % Monocytes % % Eosinophils % % Basophils % % Neutrophils # (1.6-8.9) K/mcL Lymphocytes # (0.6-4.6) K/mcL Monocytes # (0.0-1.3) K/mcL Eosinophils # (0.0-0.6) K/mcL Basophils # (0.0-0.2) K/mcL PT (9.4-12.1) Seconds INR APTT (26.0-36.0) Seconds Sodium 132 L (136-145) mEq/L Potassium 4.8 (3.5-5.1) mEq/L Chloride 96 L (98-107) mEq/L Carbon Dioxide 24 (23-29) mEq/L BUN 59 H (6-20) mg/dL Creatinine 3.60 H (0.70-1.30) mg/dL Est GFR ( Amer) 21 L (> 60) Est GFR (Non-Af Amer) 18 L (> 60) BUN/Creatinine Ratio 16 (6-26) Glucose 412 H (70-105) mg/dL POC Glucose 359 H (70-99) mg/dL Calculated Osmolality 308 H (280-300) Calcium 9.1 (8.6-10.3) mg/dL Troponin I 0.03 (< 0.04) ng/mL Attestation Statement - Attestation Attestation: I examined this patient and my medical decision-making was reviewed with the Resident Physician. I agree with the documented findings, disposition and treat ment plan as described except to the extent set forth below. Patiently ED complaint chest heaviness. Also complaining of his face being numb secondary to high blood sugars. Patient states he fell asleep last night and did not take his long-acting insulin. He went to dialysis and they sent him here. He is in no acute distress on examination with clear lungs and heart is regular rate and rhythm. Plan. Cardiac workup. Blood sugar is in the 300s here. We will treat and reevaluate. Workup unremarkable. He is admitted for further evaluation and management. Chest X-Ray 02/17/18 06:57 IMPRESSION: 1. No active pulmonary disease. D/ / Rafiq Garber MD / Rafiq Garber MD Interpreting Provider: Rafiq Garber MD
[2018-02-17] MEDS ORDERED: Insulin LISPRO 300 UNITS/3 ML VIAL SQ STA (07:39)
[2018-02-17 07:46] LABS: INR 3.2; Prothrombin Time 36.2 Seconds (9.4-12.1)
[2018-02-17 07:49] LABS: Activated Partial Thrombo Time 66.8 Seconds (26.0-36.0)
[2018-02-17 07:52] LABS: Calcium 9.1 mg/dL (8.6-10.3); Potassium 4.8 mEq/L (3.5-5.1); Troponin I 0.03 ng/mL (< 0.04)
[2018-02-17] MEDS ORDERED: Aspirin 325 MG TABLET PO SCH (09:00)
[2018-02-17] MEDS ORDERED: *HR* Morphine 2 MG/ML SYRINGE IVP PRN (09:56)
[2018-02-17] MEDS ORDERED: Ondansetron 4 MG/2 ML VIAL IVP PRN (09:56)
[2018-02-17] MEDS ORDERED: Nitroglycerin 0.4 MG TAB.SUBL SL PRN (09:56)
--- NOTE | 2018-02-17 10:07 | Internal Med History&Physical ---
Date of Encounter: 02/17/18 Time of Encounter: 10:02 Internal Medicine - H&P: HPI Chief complaint: chest pain Admitted From: Home Plans for Post Hospital Care: Home History of present illness: Mr. Oneal is a 57 year old male history of end-stage renal disease, hypertension, CAD stated post stent placement, fibrillation, hypothyroidism ,CHF, diabetes, morbid obesity presenting emergency room for chest pain. Chest pain started 6:00 am when he woke up, located to the mid of chest, heaviness, 5 out of 10, last for 5-10 minutes ,associated with shortness of breath, denies palpation or dizziness. he went to dialysis Center today, did not have mHD, was direct sent back to the emergency room for further workup. Currently patient is chest pain-free. He denies nausea vomiting diarrhea constipation productive cough afebrile. In the emergency room vitals are stable EKG shows new T-wave inversion in lead III, troponin 0.03, patient is going be admitted for chest pain workup. 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 Past Med Surg Social Fam HX - Past Medical History Medical history: arthritis, atrial fibrillation, CHF, COPD, coronary artery disease, DVT, diabetes, dialysis, GERD, hyperlipidemia, hypertension, kidney stones, myocardial infarction, osteoporosis, peripheral artery disease, renal disease, thyroid disease, venous stasis, other Additional medical history: CRF. hypothyroidism Psychiatric history: no psych history - Past Surgical History Surgical History: other Additional surgical history: left toe amputation 2005, right foot surgery 2017 right BKA 2018 - Social History Smoking Status: Never smoker Smokeless Tobacco Status: No Alcohol use: none Drug use: none - Family History Mother Adopted: No Family Member Ethnicity: Non- Living Status: Hx Family Cardiac Disorders: No Hx Family Respiratory Disorders: No Hx Family Cancer: Yes Hx Family GI Disorders: Yes Hx Family Endocrine Disorder: Yes Hx Family Neuromuscular Disorders: No Hx Family Neurologic Disorders: No Hx Family HEENT Disorders: No Hx Family Autoimmune Disorders: No Father Adopted: No Family Member Ethnicity: Non- Living Status: Hx Family Cardiac Disorders: No Hx Family Respiratory Disorders: Yes Hx Family Cancer: Yes Hx Family GI Disorders: No Hx Family Endocrine Disorder: Yes Hx Family Neuromuscular Disorders: No Hx Family Neurologic Disorders: No Hx Family HEENT Disorders: No Hx Family Autoimmune Disorders: No Internal Medicine - H&P: Meds Allopurinol [Zyloprim 100 MG] 100 mg PO DAILY 05/23/17 [History] Aspirin Enteric Coated [Aspirin EC] 81 mg PO DAILY 05/23/17 [History] Calcium Acetate [Phos-LO] 1,334 mg PO TIDWM 05/23/17 [History] Ezetimibe [Zetia] 10 mg PO DAILY 05/23/17 [History] Folic Acid 1 mg PO DAILY 05/23/17 [History] Furosemide [Lasix] 40 mg PO QPM 05/23/17 [History] Gemfibrozil [Lopid] 600 mg PO BIDWM 05/23/17 [History] Levothyroxine [Synthroid] 200 mcg PO DAILY 05/23/17 [History] Rosuvastatin Calcium [Crestor] 40 mg PO DAILY 05/23/17 [History] Metoprolol Succinate [Toprol Xl] 100 mg PO DAILY 09/02/17 [History] Acetaminophen [Tylenol] 500 mg PO 2XW PRN 02/17/18 [History] Hydralazine HCl 100 mg PO DAILY 02/17/18 [History] Insulin Degludec [Tresiba Flextouch U-200] 0 unit SQ AD 02/17/18 [History] Insulin LISPRO [Humalog Kwikpen] 20 - 60 unit SQ TIDAC 02/17/18 [History] Nitrofurantoin Macrocrystal [Nitrofurantoin] 100 mg PO BID 02/17/18 [History] Warfarin [Coumadin] 10 mg PO HS 02/17/18 [History] Allergy/AdvReac Type Severity Reaction Status Date / Time Iodinated Contrast- Oral and Allergy Swelling Verified 02/17/18 09:13 IV Dye of [Iodinated Contrast Media - Lip/Tongue/Throat Oral and] red dye Allergy Rash Verified 02/17/18 09:13 All Systems PM: A 10-system review of systems was performed and is negative for pertinent findings except as documented above in the HPI. - Constitutional Vitals: Temp Pulse Resp BP Pulse Ox 97.8 F 78 16 155/81 99 02/17/18 07:12 02/17/18 08:40 02/17/18 09:46 02/17/18 09:46 02/17/18 08:40 General appearance: Present: A&O X 3, pleasant, obese Exam: CONSTITUTIONAL: Patient appears as an age appropriate male well developed, in no acute distress. EYES Clear sclerae, bilateral pupils are equal, reactive to light and accommodation. Extraocular movements are intact RESPIRATORY: No accessory muscle use, bilateral clear to auscultation, no wheezing, no crackles/rales. CARDIOVASCULAR: Regular heart rate, normal S1 and S2, no murmurs GASTROINTESTINAL: bowel sounds present, soft, no tenderness. No hepatosplenomegaly. No bilateral CVA tenderness MUSCULOSKELETAL: Joints in normal range of motion, no clubbing, no edema, no cyanosis. Right BKA LYMPHATIC no lymphadenopathy in neck, groin and axilla bilaterally, no thyromegaly. NEUROLOGIC: CN II to XII are grossly intact, no focal neurological deficit. Deep tendon reflexes 2+ bilaterally. Normal light touch sensation to upper and lower extremity PSYCHIATRIC: Oriented x3, with good insight, mood is euthymic. No hallucinations or delusions. SKIN: Skin warm and dry, no rashes, no open wound. Internal Med - H&P Results - Labs CBC & Chem 7: 02/17/18 07:22 02/17/18 07:22 Labs: Short CBC 02/17/18 Range/Units 07:22 WBC 10.9 (4.3-11.1) K/mcL Hgb 12.7 L (12.9-16.9) g/dL Hct 39.1 (37.5-50.1) % Plt Count 303 (140-400) K/mcL Neutrophils # 6.7 (1.6-8.9) K/mcL BMP 02/17/18 07:22 Sodium 132 L Potassium 4.8 Chloride 96 L Carbon Dioxide 24 BUN 59 H Creatinine 3.60 H Glucose 412 H Calcium 9.1 Cardiac Enzymes 02/17/18 Range/Units 07:22 Troponin I 0.03 (< 0.04) ng/mL - Impressions ITS Impressions Chest X-Ray 02/17/18 06:57 IMPRESSION: 1. No active pulmonary disease. D/ / Rafiq Garber MD / Rafiq Garber MD Interpreting Provider: Rafiq Garber MD - Assessment and plan (1) Chest pain Current Visit: Yes Status: Acute Assessment and plan: chest pain, ,insetting of CAD, stent, with new EKG changes, will place Tele, follow up serial trop, do TTE, stress test, consult cardiology Qualifiers: Chest pain type: chest pain due to myocardial ischemia Ischemic chest pain type: stable angina pectoris Qualified Code(s): I20.8 - Other forms of angina pectoris (2) ESRD (end stage renal disease) on dialysis Current Visit: No Status: Chronic Assessment and plan: HD, MWF, consult nephrology Dr dela cruz (3) Diastolic CHF Current Visit: Yes Status: Chronic Assessment and plan: TTE in 2016 with normal EF, contineu lasix Qualifiers: Heart failure chronicity: chronic Qualified Code(s): I50.32 - Chronic diastolic (congestive) heart failure (4) Morbid obesity Current Visit: No Status: Chronic (5) Hx of BKA Current Visit: No Status: Acute Qualifiers: Laterality: right Qualified Code(s): Z89.511 - Acquired absence of right leg below knee (6) Hypothyroidism Current Visit: No Status: Chronic Qualifiers: Hypothyroidism type: unspecified Qualified Code(s): E03.9 - Hypothyroidism, unspecified (7) GERD (gastroesophageal reflux disease) Current Visit: No Status: Chronic Assessment and plan: continue PPI Qualifiers: Esophagitis presence: esophagitis presence not specified Qualified Code(s): K21.9 - Gastro-esophageal reflux disease without esophagitis (8) HLD (hyperlipidemia) Current Visit: Yes Status: Chronic Assessment and plan: continue home meds Qualifiers: Hyperlipidemia type: unspecified Qualified Code(s): E78.5 - Hyperlipidemia, unspecified (9) Insulin dependent type 2 diabetes mellitus Current Visit: Yes Status: Chronic Assessment and plan: uncontrolled , will add long acting ,and meal insulin and SSI (10) Hypertension Current Visit: Yes Status: Chronic Assessment and plan: continue home meds Qualifiers: Hypertension type: essential hypertension Qualified Code(s): I10 - Essential (primary) hypertension (11) CAD (coronary artery disease) Current Visit: Yes Status: Chronic Assessment and plan: s/p stent in 2012, continue ASA, statin Qualifiers: Coronary Disease-Associated Artery/Lesion type: [place] artery [place] vs. transplanted heart: [place] heart Associated angina: without angina Qualified Code(s): I25.10 - Atherosclerotic heart disease of [place] coronary artery without angina pectoris (12) Atrial fibrillation Current Visit: Yes Status: Acute Assessment and plan: rate controlled, on cumadin Qualifiers: Atrial fibrillation type: chronic Qualified Code(s): I48.2 - Chronic atrial fibrillation - Time Spent With Patient Total time spent is greater than 50% in coordination of care (as documented) at patient's floor/unit and/or counseling patient: Greater than 35 minutes - VTE Reasons for not Prescribing Prophylaxis: Not indicated-Anticoagulated or INR therapeutic
[2018-02-17] MEDS ORDERED: 0.9 % Sodium Chloride 250 ML IVC PRN (10:15)
[2018-02-17] MEDS ORDERED: *HR* Dextrose 50 % in Water (Syg) 50 ML SYRINGE IVP PRN (10:20)
[2018-02-17] MEDS ORDERED: D5% in Water 1,000 ML IVC PRN (10:20)
[2018-02-17] MEDS ORDERED: Dextrose Gel 15 GM/37.5 ML TUBE PO PRN ×2 (10:20)
[2018-02-17] MEDS ORDERED: Regadenoson 0.4 MG/5 ML SYRINGE IVP ONE (10:31)
--- NOTE | 2018-02-17 10:52 | Nephrology Consult Note ---
Date of Encounter: 02/17/18 Time of Encounter: 10:49 Assessment and Plan (1) ESRD (end stage renal disease) on dialysis Current Visit: No Status: Chronic ESRD MWF via a left forearm fistula. Plan for dialysis today. Renal dose medications. Renal diet. Renal vitamins. Monitor phosphorus. (2) Chest pain Current Visit: Yes Status: Acute Per primary team. Serial troponins. No chest pain at the time of evaluation. Qualifiers: Chest pain type: chest pain due to myocardial ischemia Ischemic chest pain type: stable angina pectoris Qualified Code(s): I20.8 - Other forms of angina pectoris (3) Hypertension Current Visit: Yes Status: Chronic Titrate bp meds as needed. Qualifiers: Hypertension type: essential hypertension Qualified Code(s): I10 - Essential (primary) hypertension (4) Insulin dependent type 2 diabetes mellitus Current Visit: Yes Status: Chronic per primary team. (5) Morbid obesity with BMI of 40.0-44.9, adult Current Visit: No Status: Chronic History of Present Illness - Reason for Consult Consult date: 02/17/18 end stage renal disease - Chief Complaint ESRD - History of Present Illness Mr. Oneal is a 57 yo man with a history of ESRD who dialyzes MWF in the [facility] dialysis unit in [place]. He states his insulin was changed the day prior to admission. His blood sugar was elevated the morning of admission. When he went to dialysis he had chest pressure and generalized numbness. He was sent to the ER for evaluation. At the time of evaluation his chest pres sure was better. He denies dyspnea, or nausea at the time of evaluation. He only complains of "my stomach growling". Past Med Surg Social Fam HX - Past Medical History Medical history: arthritis, atrial fibrillation, CHF, COPD, coronary artery disease, DVT, diabetes, dialysis, GERD, hyperlipidemia, hypertension, kidney stones, myocardial infarction, osteoporosis, peripheral artery disease, renal disease, thyroid disease, venous stasis, other Additional medical history: CRF. hypothyroidism Psychiatric history: no psych history - Past Surgical History Surgical History: other Additional surgical history: left toe amputation 2005, right foot surgery 2017 right BKA 2018 - Social History Smoking Status: Never smoker Smokeless Tobacco Status: No Alcohol use: none Drug use: none - Family History Mother Adopted: No Family Member Ethnicity: Non- Living Status: Hx Family Cardiac Disorders: No Hx Family Respiratory Disorders: No Hx Family Cancer: Yes Hx Family GI Disorders: Yes Hx Family Endocrine Disorder: Yes Hx Family Neuromuscular Disorders: No Hx Family Neurologic Disorders: No Hx Family HEENT Disorders: No Hx Family Autoimmune Disorders: No Father Adopted: No Family Member Ethnicity: Non- Living Status: Hx Family Cardiac Disorders: No Hx Family Respiratory Disorders: Yes Hx Family Cancer: Yes Hx Family GI Disorders: No Hx Family Endocrine Disorder: Yes Hx Family Neuromuscular Disorders: No Hx Family Neurologic Disorders: No Hx Family HEENT Disorders: No Hx Family Autoimmune Disorders: No Medications and Allergies Allopurinol [Zyloprim 100 MG] 100 mg PO DAILY 05/23/17 [History] Aspirin Enteric Coated [Aspirin EC] 81 mg PO DAILY 05/23/17 [History] Calcium Acetate [Phos-LO] 1,334 mg PO TIDWM 05/23/17 [History] Ezetimibe [Zetia] 10 mg PO DAILY 05/23/17 [History] Folic Acid 1 mg PO DAILY 05/23/17 [History] Furosemide [Lasix] 40 mg PO QPM 05/23/17 [History] Gemfibrozil [Lopid] 600 mg PO BIDWM 05/23/17 [History] Levothyroxine [Synthroid] 200 mcg PO DAILY 05/23/17 [History] Rosuvastatin Calcium [Crestor] 40 mg PO DAILY 05/23/17 [History] Metoprolol Succinate [Toprol Xl] 100 mg PO DAILY 09/02/17 [History] Acetaminophen [Tylenol] 500 mg PO 2XW PRN 02/17/18 [History] Hydralazine HCl 100 mg PO DAILY 02/17/18 [History] Insulin Degludec [Tresiba Flextouch U-200] 0 unit SQ AD 02/17/18 [History] Insulin LISPRO [Humalog Kwikpen] 20 - 60 unit SQ TIDAC 02/17/18 [History] Nitrofurantoin Macrocrystal [Nitrofurantoin] 100 mg PO BID 02/17/18 [History] Warfarin [Coumadin] 10 mg PO HS 02/17/18 [History] Allergy/AdvReac Type Severity Reaction Status Date / Time Iodinated Contrast- Oral and Allergy Swelling Verified 02/17/18 09:13 IV Dye of [Iodinated Contrast Media - Lip/Tongue/Throat Oral and] red dye Allergy Rash Verified 02/17/18 09:13 Review of Systems All Systems: reviewed and no additional remarkable complaints except as stated (as documented in the HPI.) Exam - Vital Signs Vital signs: Initial Vital Signs Temp Pulse Resp BP Pulse Ox 97.8 F 78 18 153/74 99 02/17/18 07:12 02/17/18 07:12 02/17/18 07:12 02/17/18 07:12 02/17/18 07:12 Vital Signs - Last 8 Hours Temp Pulse Resp BP Pulse Ox 02/17/18 09:46 16 155/81 02/17/18 08:40 78 16 166/77 99 02/17/18 07:33 81 16 168/82 99 02/17/18 07:12 97.8 F 78 18 153/74 99 Intake and Output 02/16/18 02/17/18 02/17/18 23:59 07:59 15:59 Other: Weight 140.16 kg Blood Glucose* 359 Patient Weight 02/17/18 23:59 Weight 140.16 kg - General Appearance General appearance: well-developed, well-nourished EENT: ATNC Neck: supple Respiratory: course breath sounds Cardiology: no edema (No edema in his left lower leg. Right leg BKA. ), regular rate - Dialysis Access Dialysis Vascular Access: Arteriovenous Fistula (Left forearm fistula) thrill: Yes bruit: Yes Gastrointestinal: no tenderness Integumentary: warm and dry Neurologic: alert and oriented x3 Musculoskeletal: no cyanosis Psychiatric: mood/affect appropriate Results - Lab Results 02/17/18 07:22 02/17/18 07:22 Most recent lab results Calcium 9.1 mg/dL (8.6-10.3) 02/17/18 07:22 Consult Discharge Plan - Plan Referrals: Joan Lockhart [Primary Care Provider] -
[2018-02-17 11:12] LABS: Estimated Average Glucose 220 mg/dl; Hemoglobin A1C 9.3 %
[2018-02-17] MEDS: Insulin LISPRO 300 UNITS/3 ML VIAL SQ SCH ×4 (12:00→17:31)
[2018-02-17] MEDS: Calcium Acetate 667 MG CAPSULE PO SCH ×2 (13:47→17:30)
--- NOTE | 2018-02-17 13:59 | Cardiology Consult Note ---
<Adry Shore Alvarado - Last Filed: 02/17/18 14:19> Date of Encounter: 02/17/18 Time of Encounter: 13:10 Assessment and Plan (1) Chest pain Current Visit: Yes Status: Acute Patient presented with atypical chest pain symptoms. Troponin negative x3. ECG without ST/T wave abnormalities. Hx of LHC in 2011 s/p MAR YLOU to RCA; otherwise mild, non-obstructive CAD. TTE 2016: LVEF 55-60% with normal wall motion. Agree with nuclear stress test to further evaluate for ischemic etiology of chest pain. Of note, documented IVP dye allergy. Check TTE to evaluate structure and function. Continue asa, statin, BB. Will continue to follow-up. Qualifiers: Chest pain type: chest pain due to myocardial ischemia Ischemic chest pain type: stable angina pectoris Qualified Code(s): I20.8 - Other forms of angina pectoris (2) Atrial fibrillation Current Visit: No Status: Chronic Hx of PAF. NSR upon exam; continue home medications including Toprol XL 100 mg daily. On coumadin (initially for DVT); INR monitored by PCP. Qualifiers: Atrial fibrillation type: paroxysmal Qualified Code(s): I48.0 - Paroxysmal atrial fibrillation (3) PVD (peripheral vascular disease) Current Visit: No Status: Chronic Hx of PVD; follows with Dr. Youngblood. Recent R BKA 12/2017. (4) CAD (coronary artery disease) Current Visit: Yes Status: Chronic Hx of CAD s/p PCI to RCA in 2011. Plan as above. Asa, statin, BB Qualifiers: Coronary Disease-Associated Artery/Lesion type: [place] artery [place] vs. transplanted heart: [place] heart Associated angina: with stable angina Qualified Code(s): I25.118 - Atherosclerotic heart disease of [place] coronary artery with other forms of angina pectoris Discussion w patient/family: The assessment and plan as outlined above was discussed with the patient and/or family members who expressed understanding and agreement. All questions were answered. Thank you for involving us in the care of your patient. Please call with any questions. The patient will be discussed and reviewed with Dr. Waite; changes to be made accordingly. History of Present Illness Consult date: 02/17/18 Requesting physician: Carlitos Medina Consult reason: Chest pain Chief complaint: Chest pain History of present illness: Mr. Oneal is a 57 year old male with PMHx significant of CAD s/p PCI (2012, RCA), HTN, HLD, DMII, PAF, DVT, PVD s/p R BKA, and ESRD who presented to the ED with complaints of left-sided chest pressure that started early this morning just before dialysis. Given symptoms, he did not proceed with scheduled dialysis and was recommended for ED evaluation. Chest discomfort described as left-sided heaviness, he notes he did also experience tingling sensations in hands. Pain lasted for several minutes and resolved without intervention. He reports pain was different than prior [place] symptoms. Troponin negative x3. ECG without acute ischemic changes. Prior CV testing: TTE 07/2015: LVEF 55-60%, mild MR, moderate PH, normal wall motion LHC 2011: s/p successful PCI with MARY LOU to RCA; otherwise, mild non-obstructive CAD Past Med Surg Social Fam HX - Past Medical History Attestation: Yes The following information was validated with the patient. Source: patient Medical history: arthritis, atrial fibrillation, COPD, coronary artery disease, DVT, diabetes, dialysis, GERD, hyperlipidemia, hypertension, kidney stones, myocardial infarction, osteoporosis, peripheral artery disease, renal disease, thyroid disease, venous stasis, other Additional medical history: CRF. hypothyroidism Psychiatric history: no psych history - Past Surgical History Surgical History: other Additional surgical history: left toe amputation 2004, right foot surgery 2017 right BKA 2018 - Social History Smoking Status: Never smoker Smokeless Tobacco Status: No Alcohol use: none Drug use: none - Family History Mother Adopted: No Family Member Ethnicity: Non- Living Status: Hx Family Cardiac Disorders: No Hx Family Respiratory Disorders: No Hx Family Cancer: Yes Hx Family GI Disorders: Yes Hx Family Endocrine Disorder: Yes Hx Family Neuromuscular Disorders: No Hx Family Neurologic Disorders: No Hx Family HEENT Disorders: No Hx Family Autoimmune Disorders: No Father Adopted: No Family Member Ethnicity: Non- Living Status: Hx Family Cardiac Disorders: No Hx Family Respiratory Disorders: Yes Hx Family Cancer: Yes Hx Family GI Disorders: No Hx Family Endocrine Disorder: Yes Hx Family Neuromuscular Disorders: No Hx Family Neurologic Disorders: No Hx Family HEENT Disorders: No Hx Family Autoimmune Disorders: No Medications and Allergies Allopurinol [Zyloprim 100 MG] 100 mg PO DAILY 05/23/17 [History] Aspirin Enteric Coated [Aspirin EC] 81 mg PO DAILY 05/23/17 [History] Calcium Acetate [Phos-LO] 1,334 mg PO TIDWM 05/23/17 [History] Ezetimibe [Zetia] 10 mg PO DAILY 05/23/17 [History] Folic Acid 1 mg PO DAILY 05/23/17 [History] Furosemide [Lasix] 40 mg PO QPM 05/23/17 [History] Gemfibrozil [Lopid] 600 mg PO BIDWM 05/23/17 [History] Levothyroxine [Synthroid] 200 mcg PO DAILY 05/23/17 [History] Rosuvastatin Calcium [Crestor] 40 mg PO DAILY 05/23/17 [History] Metoprolol Succinate [Toprol Xl] 100 mg PO DAILY 09/02/17 [History] Acetaminophen [Tylenol] 500 mg PO 2XW PRN 02/17/18 [History] Hydralazine HCl 100 mg PO DAILY 02/17/18 [History] Insulin Degludec [Tresiba Flextouch U-200] 0 unit SQ AD 02/17/18 [History] Insulin LISPRO [Humalog Kwikpen] 20 - 60 unit SQ TIDAC 02/17/18 [History] Nitrofurantoin Macrocrystal [Nitrofurantoin] 100 mg PO BID 02/17/18 [History] Warfarin [Coumadin] 10 mg PO HS 02/17/18 [History] Allergy/AdvReac Type Severity Reaction Status Date / Time Iodinated Contrast- Oral and Allergy Swelling Verified 02/17/18 09:13 IV Dye of [Iodinated Contrast Media - Lip/Tongue/Throat Oral and] red dye Allergy Rash Verified 02/17/18 09:13 All Systems Review: The remainder of the systems were reviewed and are negative - Cardiovascular Cardiovascular: as per HPI Physical Examination General: Conversant, No Apparent Distress, Other (obese) HEENT: Atraumatic, Normocephaly Cardiac: Reg Rate and Rhythm, Normal S1 and S2 Lungs: Normal Breath Sounds Neuro: Alert and responsive Abdomen: Soft, Non-Tender Skin: No rashes noted on visualized skin Musculoskeletal: No Chest Wall Tenderness Extremities: Other (right BKA; toe amputations LLE) Results 02/17/18 07:22 02/17/18 07:22 Lab Results 02/17/18 02/17/18 02/17/18 07:22 07:22 07:22 WBC 10.9 Hgb 12.7 L Hct 39.1 Plt Count 303 INR 3.2 APTT 66.8 H Sodium 132 L Potassium 4.8 Chloride 96 L Carbon Dioxide 24 BUN 59 H Creatinine 3.60 H Glucose 412 H Calcium 9.1 Troponin I 0.03 02/17/18 10:21 WBC Hgb Hct Plt Count INR APTT Sodium Potassium Chloride Carbon Dioxide BUN Creatinine Glucose Calcium Troponin I 0.03 Active Medications Acetaminophen (Tylenol) 500 mg PO 2XW PRN PRN Reason: Pain Stop: 08/19/18 10:07 Allopurinol (Zyloprim) 100 mg PO DAILY [facility] Stop: 08/20/18 09:01 Aspirin (Aspirin) 81 mg PO DAILY [facility] Stop: 08/20/18 09:01 Calcium Acetate (Phos-Lo) 1,334 mg PO TIDWM [facility] Stop: 08/19/18 12:01 Last Admin: 02/17/18 13:47 Dose: Not Given Dextrose/Water (Dextrose 50% (Syg)) 25 ml IVP AD PRN PRN Reason: Hypoglycemia Stop: 08/19/18 10:21 Folic Acid (Folic Acid) 1 mg PO DAILY [facility]LE[facility] Stop: 08/20/18 09:01 Furosemide (Lasix) 40 mg PO QPM [facility] Stop: 08/19/18 18:01 Glucagon (Glucagen) 1 mg IM ONCE PRN PRN Reason: Hypoglycemia Stop: 08/19/18 10:21 Glucose (Gluctose) 15 gm PO ONCE PRN PRN Reason: Hypoglycemia Stop: 08/19/18 10:21 Glucose (Gluctose) 30 gm PO ONCE PRN PRN Reason: Hypoglycemia Stop: 08/19/18 10:21 Hydralazine HCl (Hydralazine) 100 mg PO DAILY [facility] Stop: 08/20/18 09:01 Dextrose (Dextrose 5%) 1,000 mls @ 100 mls/hr IVC .Q10H PRN PRN Reason: HYPOGLYCEMIA Stop: 08/19/18 10:21 Sodium Chloride (0.9 % Sodium Chloride) 250 mls @ 937.5 mls/hr IVC .Q16M PRN PRN Reason: Hypotension Stop: 08/19/18 10:16 Insulin Detemir (Levemir) 36 unit 0.25 unit/kg (36 unit) SQ HS [facility] Stop: 08/19/18 21:01 Insulin Human Lispro (Humalog) 12 units 0.08 units/kg (12 units) SQ TIDWM [facility] Stop: 08/19/18 12:01 Last Admin: 02/17/18 12:00 Dose: Not Given Insulin Human Lispro (Humalog) 0 units SQ TIDAC [facility]; Protocol Stop: 08/19/18 11:31 Last Admin: 02/17/18 12:00 Dose: Not Given Insulin Human Lispro (Humalog) 0 units SQ HS [facility]; Protocol Stop: 08/19/18 21:01 Levothyroxine Sodium (Synthroid) 200 mcg PO 0630 [facility] Stop: 08/19/18 10:16 Morphine Sulfate (Morphine Sulfate) 2 mg IVP Q2H PRN PRN Reason: Chest Pain Stop: 08/19/18 09:57 Nitroglycerin (Nitroglycerin) 0.4 mg SL Q5MIN PRN PRN Reason: Chest Pain Stop: 08/19/18 09:57 Ondansetron HCl (Zofran) 4 mg IVP Q6HR PRN; Protocol PRN Reason: Nausea Stop: 08/19/18 09:57 Pharmacy Profile Note (Patient Taking Own Medication) 0 each PO DAILY [facility] Stop: 08/20/18 09:01 Rosuvastatin Calcium (Crestor) 40 mg PO HS [facility] Stop: 08/20/18 21:01 Warfarin Sodium (Coumadin) 10 mg PO 1800 [facility] Stop: 08/19/18 18:01 - Imaging and Cardiology Echo: report reviewed Cardiac cath: report reviewed Other Results: Telemetry review not available (ED obs) - EKG Interpretation EKG results cardiology: personally reviewed Consult Discharge Plan - Plan Referrals: Joan Lockhart [Primary Care Provider] - 02/25/18 10:40 am <Lev A - Last Filed: 02/17/18 16:06> Date of Encounter: 02/17/18 - Attending Attestation I have personally performed a face to face evaluation on this patient. I have reviewed and agree with the documented findings and care plan as documented by the JET INSPECTOR. History and Exam by me shows: 57-year-old male with past history of CAD, diabetes, ESRD on dialysis, presented with atypical chest pain. Currently chest pain-free. AAOX3 in NAD at the bedside Hemodynamically stable Cardiopulmonary exam revealed S1, S2, no murmur; clear lungs Right BKA Echo in 2016 showed preserved EF, no significant valvular heart disease. Obtain transthoracic echo Impression/plan: CAD and atypical chest pain, we recommend nuclear stress test. If stress test is positive he will need protocol for contrast allergy instituted prior to crdiac catheterization. Continue aspirin, beta sandra, high intensity statin Thanks, Michel Waite MD [facility] Assessment and Plan Discussion w patient/family: The assessment and plan as outlined above was discussed with the patient and/or family members who expressed understanding and agreement. All questions were answered. Thank you for involving us in the care of your patient. Please call with any questions. History of Present Illness History of present illness: Mr. Oneal is a 57 year old male All Systems Review: The remainder of the systems were reviewed and are negative Results 02/17/18 07:22 02/17/18 07:22 Lab Results 02/17/18 02/17/18 02/17/18 07:22 07:22 07:22 WBC 10.9 Hgb 12.7 L Hct 39.1 Plt Count 303 INR 3.2 APTT 66.8 H Sodium 132 L Potassium 4.8 Chloride 96 L Carbon Dioxide 24 BUN 59 H Creatinine 3.60 H Glucose 412 H Calcium 9.1 Troponin I 0.03 02/17/18 10:21 WBC Hgb Hct Plt Count INR APTT Sodium Potassium Chloride Carbon Dioxide BUN Creatinine Glucose Calcium Troponin I 0.03
[2018-02-17] MEDS ORDERED: Perflutren Lipid Microsphere 1.3 ML in 0.9 % Sodium Chloride 8.7 ML IVP ONE ×3 (15:10→17:58)
[2018-02-17] MEDS ORDERED: 0.9 % Sodium Chloride 1,000 ML ONE (15:50)
[2018-02-17] MEDS: Furosemide 40 MG TABLET PO SCH (17:30)
[2018-02-17] MEDS ORDERED: *HR* Warfarin 10 MG TABLET PO SCH (18:00)
[2018-02-17] MEDS ORDERED: Insulin LISPRO 300 UNITS/3 ML VIAL SQ SCH (21:00)
[2018-02-17] MEDS ORDERED: Insulin DETEMIR 100 UNIT/ML X5UNITS SQ SCH (21:00)
[2018-02-18] MEDS ORDERED: Regadenoson 0.4 MG/5 ML SYRINGE IVP ONE (05:52)
[2018-02-18 07:18] LABS: Basophils # 0.1 K/mcL (0.0-0.2); Eosinophils # 0.6 K/mcL (0.0-0.6); Eosinophils % 7.5 %; Hematocrit 39.6 % (37.5-50.1); Immature Granulocytes % 0.2 % (0-4); Lymphocytes % 23.6 %; Mean Corpuscular HGB Conc 32.8 g/dL (31.6-35.5); Mean Corpuscular Hemoglobin 29.2 pg (28.0-33.3); Mean Platelet Volume 10.3 fL (9.4-12.4); Monocytes # 0.5 K/mcL (0.0-1.3); Monocytes % 5.5 %; Neutrophils # 5.2 K/mcL (1.6-8.9); Platelet Count 298 K/mcL (140-400); Red Blood Count 4.45 M/mcL (4.19-5.50); Red Cell Distribution Width 15.9 % (11.5-14.5); Segmented Neutrophils % 62.2 %
[2018-02-18 07:29] LABS: INR 3.7; Prothrombin Time 42.2 Seconds (9.4-12.1)
[2018-02-18 07:38] LABS: Albumin 4.1 g/dL (3.5-5.7); Albumin/Globulin Ratio 1.2 (1.1-2.2); Bilirubin,Total 0.3 mg/dL (0.3-1.0); Calcium 9.4 mg/dL (8.6-10.3); Globulin 3.4 g/dL (2.4-3.5); Magnesium 2.1 mg/dL (1.6-2.6); Potassium 4.5 mEq/L (3.5-5.1); Total Protein 7.5 g/dL (6.4-8.9)
--- NOTE | 2018-02-18 08:20 | Event Note ---
Date of Encounter: 02/18/18 Time of Encounter: 08:19 - Cardiology Event Note Patient seen during stress test. Denies chest pain this am or overnight. First part of 2 day stress test started today, will finish stress tomorrow. Further inpatient cardiology recommendations pending stress test.
[2018-02-18] MEDS ORDERED: hydrALAZINE 25 MG TABLET PO SCH (09:00)
[2018-02-18] MEDS ORDERED: Aspirin Enteric Coated 81 MG Tablet PO SCH (09:00)
[2018-02-18] MEDS: Metoprolol XL (24 HR) Succ 50 MG TAB.ER.24H PO SCH (09:21)
[2018-02-18] MEDS: Aspirin 81 MG TAB.CHEW PO SCH (09:22)
[2018-02-18] MEDS: (Ezetimibe [Zetia] 10 MG) PO SCH (09:22)
[2018-02-18] MEDS: Folic Acid 1 MG TABLET PO SCH (09:22)
[2018-02-18] MEDS: Calcium Acetate 667 MG CAPSULE PO SCH ×3 (09:22→16:58)
[2018-02-18] MEDS: Insulin LISPRO 300 UNITS/3 ML VIAL SQ SCH ×6 (09:23→16:59)
--- NOTE | 2018-02-18 09:25 | Internal Med Progress Note ---
<Leena Desir Funmilayo - Last Filed: 02/18/18 15:44> Hospitalist Progress Note - Encounter Date of Encounter: 02/18/18 Time of Encounter: 09:24 - Subjective Interval History: Patient remains chest pain free. Asking for discharge, but voices understanding of need to stay for second day of stress test. - Exam Vitals: Temp Pulse Resp BP Pulse Ox 98.5 F 89 18 133/73 96 02/18/18 07:28 02/18/18 07:28 02/18/18 07:28 02/18/18 07:28 02/18/18 07:28 Exam: General: alert, NAD HEENT: normocephalic, atraumatic, PEERLA EOMI, neck supple, trachea midline, external ears normal, MMM Cardiac: regular rate, infrequent PAC/PVCs, no murmurs Respiratory: CTAB Abdomen: soft, nontender, BS present Extremities: s/p right BKA, left leg with chronic venous stasis dermatitis Neuro: A&Ox3 Psych: normal affect - Assessment and Plan (1) Chest pain Current Visit: Yes Status: Acute Assessment and Plan: has completed day 1 of 2 day nuclear stress test Last [facility] 2011 s/p MARY LOU to RCA echo 2016 EF 55-60%, normal motion (2) CAD (coronary artery disease) Current Visit: Yes Status: Chronic Assessment and Plan: continue home meds (3) Atrial fibrillation Current Visit: Yes Status: Chronic Assessment and Plan: regular rate with irregular PACs/PVCs on exam continue home medications (4) Insulin dependent type 2 diabetes mellitus Current Visit: Yes Status: Chronic Assessment and Plan: 60 units levemir QHS, hold for sugar <100 15 units lispro TIDWM ADA diet high dose SSI (5) ESRD (end stage renal disease) on dialysis Current Visit: No Status: Chronic Assessment and Plan: M-W-F dialysis maintain dialysis while inpatient nephrology following (6) Hypothyroidism Current Visit: No Status: Chronic Assessment and Plan: continue home meds (7) Morbid obesity with BMI of 40.0-44.9, adult Current Visit: No Status: Chronic (8) Hypertension Current Visit: No Status: Chronic Assessment and Plan: chronic, stable continue home meds (9) HLD (hyperlipidemia) Current Visit: No Status: Chronic Assessment and Plan: continue home meds (10) Diastolic CHF Current Visit: No Status: Chronic Assessment and Plan: chronic, stable (11) Hx of BKA Current Visit: No Status: Acute (12) Venous stasis dermatitis Current Visit: No Status: Chronic (13) PVD (peripheral vascular disease) Current Visit: No Status: Chronic - Time Spent with Patient Total time spent is greater than 50% in coordination of care (as documented) at patient's floor/unit and/or counseling patient: Internal Medicine: Result - Labs CBC & Chem 7: 02/18/18 06:55 02/18/18 06:55 Labs: Short CBC 02/18/18 Range/Units 06:55 WBC 8.3 (4.3-11.1) K/mcL Hgb 13.0 (12.9-16.9) g/dL Hct 39.6 (37.5-50.1) % Plt Count 298 (140-400) K/mcL Neutrophils # 5.2 (1.6-8.9) K/mcL BMP 02/18/18 06:55 Sodium 135 L Potassium 4.5 Chloride 97 L Carbon Dioxide 25 BUN 41 H Creatinine 2.80 H Glucose 345 H Calcium 9.4 Cardiac Enzymes 02/17/18 02/17/18 02/17/18 Range/Units 10:21 17:02 23:02 Troponin I 0.03 0.03 < 0.03 (< 0.04) ng/mL Liver Function 02/18/18 Range/Units 06:55 Total Bilirubin 0.3 (0.3-1.0) mg/dL AST 20 (13-39) Units/L ALT 13 (7-52) Units/L Alkaline Phosphatase 109 H (34-104) Units/L Albumin 4.1 (3.5-5.7) g/dL - ABG Interpretation ABG results: PT/INR, D-dimer PT 42.2 Seconds (9.4-12.1) H 02/18/18 06:55 - Impressions Impressions Echocardiogram 02/17/18 09:56 Impressions: LVEF 65-70%. Normal LV chamber size, wall thickness and systolic function. Mild left ventricular diastolic dysfunction. Mildly dilated right ventricle with normal sysolic function. No significant valvular dysfunction. No evidence of pulmonary hypertension. Left Ventricular Wall Motion: Rest Echo Findings All wall segments showed normal motion. Findings: Study Quality * Technically adequate exam. ECG Findings * Normal sinus rhythm. Left Ventricle * LVEF 65-70%. * Normal LV chamber size, wall thickness and systolic function. * Mild left ventricular diastolic dysfunction. Right Ventricle * Mildly dilated right ventricle with normal sysolic function. Left Atrium * Normal left atrial size. Right Atrium * Normal right atrial size. Interatrial Septum * Interatrial septum not well evaluated. Aortic Valve * Moderately calcified aortic valve leaflets. * No aortic stenosis. * No aortic regurgitation. Mitral Valve * Moderately calcified mitral valve leaflets. * Trace mitral regurgitation. * No mitral stenosis. Tricuspid Valve * Normal tricuspid valve structure. * No tricuspid stenosis. * Trace tricuspid regurgitation. * Unable to estimate RVSP due to lack of TR jet. * No evidence of pulmonary hypertension. * Estimated RA pressure is 3 mmHg. Pulmonic Valve * Pulmonic valve is not well visualized. * No pulmonic stenosis. * No pulmonic regurgitation. Aorta * Normally sized aortic root. Pericardium * The pericardium appears normal. IVC * Normal IVC dimensions and inspiratory collapse. - VTE Reasons for not Prescribing Prophylaxis: Not indicated-Anticoagulated or INR t herapeutic Consult Discharge Plan - Plan Referrals: Joan Lockhart [Primary Care Provider] - 02/25/18 10:40 am <Jim Armstrong - Last Filed: 02/18/18 16:32> Hospitalist Progress Note - Encounter Date of Encounter: 02/18/18 - Exam Vitals: Temp Pulse Resp BP Pulse Ox 98.9 F 81 17 142/79 94 02/18/18 11:30 02/18/18 11:30 02/18/18 11:30 02/18/18 11:30 02/18/18 11:30 - Time Spent with Patient Total time spent is greater than 50% in coordination of care (as documented) at patient's floor/unit and/or counseling patient: Internal Medicine: Result - Labs CBC & Chem 7: 02/18/18 06:55 02/18/18 06:55 Labs: Short CBC 02/18/18 Range/Units 06:55 WBC 8.3 (4.3-11.1) K/mcL Hgb 13.0 (12.9-16.9) g/dL Hct 39.6 (37.5-50.1) % Plt Count 298 (140-400) K/mcL Neutrophils # 5.2 (1.6-8.9) K/mcL BMP 02/18/18 06:55 Sodium 135 L Potassium 4.5 Chloride 97 L Carbon Dioxide 25 BUN 41 H Creatinine 2.80 H Glucose 345 H Calcium 9.4 Cardiac Enzymes 02/17/18 02/17/18 Range/Units 17:02 23:02 Troponin I 0.03 < 0.03 (< 0.04) ng/mL Liver Function 02/18/18 Range/Units 06:55 Total Bilirubin 0.3 (0.3-1.0) mg/dL AST 20 (13-39) Units/L ALT 13 (7-52) Units/L Alkaline Phosphatase 109 H (34-104) Units/L Albumin 4.1 (3.5-5.7) g/dL - ABG Interpretation ABG results: PT/INR, D-dimer PT 42.2 Seconds (9.4-12.1) H 02/18/18 06:55 - Impressions Impressions Echocardiogram 02/17/18 09:56 Impressions: LVEF 65-70%. Normal LV chamber size, wall thickness and systolic function. Mild left ventricular diastolic dysfunction. Mildly dilated right ventricle with normal sysolic function. No significant valvular dysfunction. No evidence of pulmonary hypertension. Left Ventricular Wall Motion: Rest Echo Findings All wall segments showed normal motion. Findings: Study Quality * Technically adequate exam. ECG Findings * Normal sinus rhythm. Left Ventricle * LVEF 65-70%. * Normal LV chamber size, wall thickness and systolic function. * Mild left ventricular diastolic dysfunction. Right Ventricle * Mildly dilated right ventricle with normal sysolic function. Left Atrium * Normal left atrial size. Right Atrium * Normal right atrial size. Interatrial Septum * Interatrial septum not well evaluated. Aortic Valve * Moderately calcified aortic valve leaflets. * No aortic stenosis. * No aortic regurgitation. Mitral Valve * Moderately calcified mitral valve leaflets. * Trace mitral regurgitation. * No mitral stenosis. Tricuspid Valve * Normal tricuspid valve structure. * No tricuspid stenosis. * Trace tricuspid regurgitation. * Unable to estimate RVSP due to lack of TR jet. * No evidence of pulmonary hypertension. * Estimated RA pressure is 3 mmHg. Pulmonic Valve * Pulmonic valve is not well visualized. * No pulmonic stenosis. * No pulmonic regurgitation. Aorta * Normally sized aortic root. Pericardium * The pericardium appears normal. IVC * Normal IVC dimensions and inspiratory collapse. - Attending Attestation I examined this patient and my medical decision-making was reviewed with the Resident Physician. I agree with the documented findings, disposition and treatment plan as described except to the extent set forth below. <Leena Desir - Last Filed: 02/18/18 15:44> (1) Chest pain Qualifiers: Chest pain type: chest pain due to myocardial ischemia Ischemic chest pain type: stable angina pectoris Qualified Code(s): I20.8 - Other forms of angina pectoris (2) CAD (coronary artery disease) Qualifiers: Coronary Disease-Associated Artery/Lesion type: [place] artery [place] vs. transplanted heart: [place] heart Associated angina: with stable angina Qualified Code(s): I25.118 - Atherosclerotic heart disease of [place] coronary artery with other forms of angina pectoris (3) Atrial fibrillation Qualifiers: Atrial fibrillation type: chronic Qualified Code(s): I48.2 - Chronic atrial fibrillation (6) Hypothyroidism Qualifiers: Hypothyroidism type: unspecified Qualified Code(s): E03.9 - Hypothyroidism, unspecified (8) Hypertension Qualifiers: Hypertension type: essential hypertension Qualified Code(s): I10 - Essential (primary) hypertension (9) HLD (hyperlipidemia) Qualifiers: Hyperlipidemia type: unspecified Qualified Code(s): E78.5 - Hyperlipidemia, unspecified (10) Diastolic CHF Qualifiers: Heart failure chronicity: chronic Qualified Code(s): I50.32 - Chronic diast olic (congestive) heart failure (11) Hx of BKA Qualifiers: Laterality: right Qualified Code(s): Z89.511 - Acquired absence of right leg below knee (12) Venous stasis dermatitis Qualifiers: Laterality: left Qualified Code(s): I87.2 - Venous insufficiency (chronic) (peripheral)
--- NOTE | 2018-02-18 14:18 | Nephrology Progress Note ---
Date of Encounter: 02/18/18 Time of Encounter: 14:18 - Assessment and Plan (1) ESRD (end stage renal disease) on dialysis Current Visit: No Status: Chronic ESRD MWF via a left forearm fistula. Plan for dialysis Thursday Renal dose medications. Renal diet. Renal vitamins. Monitor phosphorus. (2) Chest pain Current Visit: Yes Status: Acute Per primary team and cardiology. Serial troponins. No chest pain at the time of evaluation. He is getting a stress test. Qualifiers: Chest pain type: chest pain due to myocardial ischemia Ischemic chest pain type: stable angina pectoris Qualified Code(s): I20.8 - Other forms of angina pectoris (3) Hypertension Current Visit: No Status: Chronic Titrate bp meds as needed. Qualifiers: Hypertension type: essential hypertension Qualified Code(s): I10 - Essential (primary) hypertension (4) Insulin dependent type 2 diabetes mellitus Current Visit: Yes Status: Chronic per primary team. (5) Morbid obesity with BMI of 40.0-44.9, adult Current Visit: No Status: Chronic Subjective Principal diagnosis: ESRD Interval history: Patient seen. He has no new complaint. He just wants to leave. Objective - Vital Signs Vital signs: Vital Signs Temp Pulse Resp BP Pulse Ox 02/18/18 11:30 98.9 F 81 17 142/79 94 02/18/18 07:28 98.5 F 89 18 133/73 96 02/18/18 04:11 98.3 F 97 22 134/76 98 02/18/18 00:40 99 F 101 15 152/95 95 02/17/18 22:57 97.7 F 91 19 150/70 97 02/17/18 22:30 98.8 F 18 140/80 02/17/18 22:15 127/81 02/17/18 22:00 143/80 02/17/18 21:45 130/74 02/17/18 21:30 128/76 02/17/18 21:15 149/96 02/17/18 21:00 125/78 02/17/18 20:45 139/97 02/17/18 20:30 152/73 02/17/18 20:15 145/77 02/17/18 20:00 136/80 02/17/18 19:45 141/82 02/17/18 19:30 138/74 02/17/18 19:15 149/79 02/17/18 19:00 97.6 F 17 173/84 02/17/18 17:00 97.4 F L 84 16 169/83 96 Intake and Output 02/17/18 02/18/18 02/18/18 23:59 07:59 15:59 Intake Total 600 / 600 240 / 240 Output Total 3345 / 3345 300 / 300 Balance -2745 / -2745 -300 / -300 240 / 240 Intake: Oral 0 / 0 240 / 240 Intake, Rinseback and Flushes 600 / 600 Output: Urine 0 / 0 300 / 300 Total Dialysis (HD) Output 3345 / 3345 Other: Meal Lunch Percent of Meal Consumed 100% Weight 140.16 kg 135.709 kg Blood Glucose* 201 296 488 Hemodialysis Net Fluid Removed 2745 (mL) Patient Weight 02/18/18 23:59 Weight 135.709 kg - General Appearance General appearance: Present: well-developed, well-nourished EENT: Present: ATNC Neck: Present: supple Cardiology: Present: regular rate Dialysis Vascular Access: Arteriovenous Fistula (L Forearm) Gastrointestinal: Present: no tenderness Neurologic: Present: alert and oriented x3 Musculoskeletal: Present: no cyanosis - Lab 02/18/18 06:55 02/18/18 06:55 Most recent lab results Calcium 9.4 mg/dL (8.6-10.3) 02/18/18 06:55 Magnesium 2.1 mg/dL (1.6-2.6) 02/18/18 06:55 - VTE Reasons for not Prescribing Prophylaxis: Not indicated-Anticoagulated or INR therapeutic Consult Discharge Plan - Plan Referrals: Joan Lockhart [Primary Care Provider] - 02/25/18 10:40 am
[2018-02-18] MEDS: Furosemide 40 MG TABLET PO SCH (16:58)
[2018-02-18] MEDS ORDERED: Warfarin perPT PO PRN (18:00)
[2018-02-18] MEDS ORDERED: Insulin DETEMIR 100 UNIT/ML X5UNITS SQ SCH (21:00)
[2018-02-18] MEDS ORDERED: Insulin LISPRO 300 UNITS/3 ML VIAL SQ SCH (21:00)
[2018-02-19] MEDS ORDERED: 0.9 % Sodium Chloride 250 ML IVC PRN (07:04)
[2018-02-19 07:05] LABS: Basophils # 0.1 K/mcL (0.0-0.2); Basophils % 0.8 %; Eosinophils # 0.7 K/mcL (0.0-0.6); Eosinophils % 9.5 %; Hematocrit 38.4 % (37.5-50.1); Hemoglobin 12.3 g/dL (12.9-16.9); Immature Granulocytes % 0.3 % (0-4); Lymphocytes % 26.9 %; Mean Corpuscular Hemoglobin 29.1 pg (28.0-33.3); Mean Corpuscular Volume 90.8 fL (83.0-100.0); Mean Platelet Volume 10.2 fL (9.4-12.4); Monocytes # 0.5 K/mcL (0.0-1.3); Monocytes % 7.3 %; Neutrophils # 4.1 K/mcL (1.6-8.9); Platelet Count 272 K/mcL (140-400); Red Blood Count 4.23 M/mcL (4.19-5.50); Red Cell Distribution Width 15.8 % (11.5-14.5); Segmented Neutrophils % 55.2 %
[2018-02-19 07:13] LABS: INR 2.6
[2018-02-19] MEDS ORDERED: 0.9 % Sodium Chloride 1,000 ML PRIME SCH (07:15)
[2018-02-19] MEDS ORDERED: *HR* Heparin 10,000 UNIT/10 ML VIAL IV PRN (07:19)
[2018-02-19 07:27] LABS: Calcium 9.2 mg/dL (8.6-10.3); Potassium 4.3 mEq/L (3.5-5.1)
[2018-02-19] MEDS: (Ezetimibe [Zetia] 10 MG) PO SCH (07:38)
[2018-02-19] MEDS: Calcium Acetate 667 MG CAPSULE PO SCH ×3 (07:38→17:34)
[2018-02-19] MEDS: Folic Acid 1 MG TABLET PO SCH (07:42)
[2018-02-19] MEDS: Insulin LISPRO 300 UNITS/3 ML VIAL SQ SCH ×6 (07:42→17:33)
[2018-02-19] MEDS: Aspirin 81 MG TAB.CHEW PO SCH (07:42)
--- NOTE | 2018-02-19 08:21 | Event Note ---
Date of Encounter: 02/19/18 Time of Encounter: 08:19 - Cardiology Event Note Stress test negative for ischemia or infarct. On asa, statin, BB. TTE with LVEF preserved, no segmental wall motion abnormalities. Cardiology will sign off. Will arrange outpatient follow up.
--- NOTE | 2018-02-19 09:38 | Nephrology Progress Note ---
Date of Encounter: 02/19/18 Time of Encounter: 07:45 - Assessment and Plan (1) ESRD (end stage renal disease) on dialysis Current Visit: No Status: Chronic ESRD on HD MWF and his primary dialysis unit is with the former [facility] practice. Due for HD today, and I reviewed his labs, vitals, med list, prior progress and imaging, and I also reviewed the sign-out from my colleague; and with this complex review of medical decision making and E/M, I ordered his HD for today. Hgb goal 10-11, so no need for ELAN at this time. Mild hyponatremia, so avoid excessive fluid (interdialytic weight gain IDWG): HD today for UF needed. HTN: appreciate Cardio for stress test. Renal diet recommended. His next HD is tentatively planned for Thursday, if he remains admitted. I will be available this if needed. Thank you. Subjective Principal diagnosis: ESRD Interval history: Pt was s/e and he did not affirm N/V/D or uremic complaints. He has plans for a stress today today. His floor RN was present during my rounds. Objective - Vital Signs Vital signs: Vital Signs Temp Pulse Resp BP Pulse Ox 02/19/18 07:23 97.7 F 73 18 157/83 97 02/19/18 04:06 97.7 F 67 16 135/80 94 02/18/18 23:10 98.4 F 80 15 150/80 96 02/18/18 20:03 98.0 F 80 18 126/71 95 02/18/18 17:49 98.0 F 73 18 104/70 98 02/18/18 11:30 98.9 F 81 17 142/79 94 Intake and Output 02/18/18 02/19/18 02/19/18 23:59 07:59 15:59 Intake Total 0 / 0 Output Total 475 / 475 Balance -475 / -475 0 / 0 Intake: Oral 0 / 0 Output: Urine 475 / 475 Other: Meal NPO Percent of Meal Consumed 0% Blood Glucose* 363 281 - General Appearance General appearance: Present: well-developed, well-nourished, appears started age, obese EENT: Present: ATNC, PERRL, mucous membranes moist Respiratory: Present: rhonchi Cardiology: Present: edema (trace left ankle edema), regular rate, regular rhythm, normal S1, normal S2 Dialysis Vascular Access: Arteriovenous Fistula (Right) thrill: Yes bruit: Yes Gastrointestinal: Present: normoactive bowel sounds, no tenderness, no guarding, obese Integumentary: Present: warm and dry Neurologic: Present: no focal deficit, no asterixis, alert and oriented x3 Additional Comments: Right BKA with sump dressing that appeared C/D/I. Psychiatric: Present: mood/affect appropriate, cooperative - Lab 02/19/18 06:23 02/19/18 06:23 Most recent lab results Calcium 9.2 mg/dL (8.6-10.3) 02/19/18 06:23 Magnesium 2.1 mg/dL (1.6-2.6) 02/18/18 06:55 - VTE Reasons for not Prescribing Prophylaxis: Not indicated-Anticoagulated or INR therapeutic Consult Discharge Plan - Plan Referrals: Joan Lockhart [Primary Care Provider] - 02/25/18 10:40 am
--- NOTE | 2018-02-19 11:41 | Internal Med Progress Note ---
Hospitalist Progress Note - Encounter Date of Encounter: 02/19/18 Time of Encounter: 11:41 - Exam Vitals: Temp Pulse Resp BP Pulse Ox 97.7 F 73 18 157/83 97 02/19/18 07:23 02/19/18 07:23 02/19/18 07:23 02/19/18 07:23 02/19/18 07:23 Exam: General: Patient is alert, no acute distress, oriented x 3 ENT: Mucous membranes moist Respiratory: Good respiratory effort. Normal breath sounds. No wheezing or crackles. Cardiovascular: Regular rate and rhythm. s1 and s2 normal No clicks, rubs, gallops, or murmurs. Mild left pedal edema Abdomen: Abdomen is soft, nontender. Bowel sounds are present Musculoskeletal: Patient has right BKA. Skin: warm, dry, intact. Neuro: Alert oriented x 3 normal cranial nerves, no focal deficits - Time Spent with Patient Total time spent is greater than 50% in coordination of care (as documented) at patient's floor/unit and/or counseling patient: Internal Medicine: Result - Labs CBC & Chem 7: 02/19/18 06:23 02/19/18 06:23 Labs: Short CBC 02/19/18 Range/Units 06:23 WBC 7.4 (4.3-11.1) K/mcL Hgb 12.3 L (12.9-16.9) g/dL Hct 38.4 (37.5-50.1) % Plt Count 272 (140-400) K/mcL Neutrophils # 4.1 (1.6-8.9) K/mcL BMP 02/19/18 06:23 Sodium 134 L Potassium 4.3 Chloride 98 Carbon Dioxide 26 BUN 55 H Creatinine 3.12 H Glucose 326 H Calcium 9.2 - ABG Interpretation ABG results: PT/INR, D-dimer PT 29.0 Seconds (9.4-12.1) H 02/19/18 06:23 - VTE Reasons for not Prescribing Prophylaxis: Not indicated-Anticoagulated or INR therapeutic Consult Discharge Plan - Plan Referrals: Joan Lockhart [Primary Care Provider] - 02/25/18 10:40 am
--- NOTE | 2018-02-19 11:48 | Discharge Summary ---
- NOTES TO OUTPATIENT PROVIDER Notes to Outpatient Provider: Patient with history of end-stage renal disease on hemodialysis, hypertension, atrial fibrillation, coronary artery disease was hospitalized here with complaints of shortness of breath and heaviness in his chest. He was evaluated for possible ACS with troponins which were negative. He then underwent cardiac stress test which did not show any signs of ischemia. He is chest pain-free at this time. He reports that he was under a lot of stress prior to admission and that may have contributed to his chest pain. He is clinically stable for discharge home. He did receive dialysis during his hospital stay. He will continue with dialysis per his usual schedule after di scharge. Orders not resulted at time of discharge: Pending orders 02/17/18 09:56 ECG 12 lead ECG [ECG] Routine 02/17/18 09:58 NM laurel perf SPECT multi [NM] Routine 02/20/18 04:00 PT/INR [Prothrombin Time INR] [COAG] AM 0400 Date of Encounter: 02/19/18 Time of Encounter: 11:46 - Discharge Diagnosis (1) Chest pain Priority: Primary Status: Acute Qualifiers: Chest pain type: chest pain due to myocardial ischemia Ischemic chest pain type: stable angina pectoris Qualified Code(s): I20.8 - Other forms of angina pectoris (2) Atrial fibrillation Priority: Secondary Status: Chronic Qualifiers: Atrial fibrillation type: chronic Qualified Code(s): I48.2 - Chronic atrial fibrillation (3) CAD (coronary artery disease) Priority: Secondary Status: Chronic Qualifiers: Coronary Disease-Associated Artery/Lesion type: [place] artery [place] vs. transplanted heart: [place] heart Associated angina: with stable angina Qualified Code(s): I25.118 - Atherosclerotic heart disease of [place] coronary artery with other forms of angina pectoris (4) ESRD (end stage renal disease) on dialysis Priority: Secondary Status: Chronic (5) Insulin dependent type 2 diabetes mellitus Priority: Secondary Status: Chronic (6) Hypertension Priority: Secondary Status: Chronic Qualifiers: Hypertension type: essential hypertension Qualified Code(s): I10 - Essential (primary) hypertension (7) Morbid obesity with BMI of 40.0-44.9, adult Priority: Secondary Status: Chronic Hospital course: Mr. Oneal is a 57 year old male patient with history of end-stage renal disease on hemodialysis, hypertension, atrial fibrillation, coronary artery disease was hospitalized here with complaints of shortness of breath and heaviness in his chest. He was evaluated for possible ACS with troponins which were negative. He then underwent cardiac stress test which did not show any signs of ischemia. He is chest pain-free at this time. He reports that he was under a lot of stress prior to admission and that may have contributed to his chest pain. He is clinically stable for discharge home. He did receive dialysis during his hospital stay. He will continue with dialysis per his usual schedule after discharge. Discharge discussed with: patient - Time Spent with Patient Total time spent providing and/or coordinating discharge services: Less than 30 minutes (25 min) - Discharge Medications Home Medications: Allopurinol [Zyloprim 100 MG] 100 mg PO DAILY 05/23/17 [History] Aspirin Enteric Coated [Aspirin EC] 81 mg PO DAILY 05/23/17 [History] Calcium Acetate [Phos-LO] 1,334 mg PO TIDWM 05/23/17 [History] Ezetimibe [Zetia] 10 mg PO DAILY 05/23/17 [History] Folic Acid 1 mg PO DAILY 05/23/17 [History] Furosemide [Lasix] 40 mg PO QPM 05/23/17 [History] Gemfibrozil [Lopid] 600 mg PO BIDWM 05/23/17 [History] Levothyroxine [Synthroid] 200 mcg PO DAILY 05/23/17 [History] Rosuvastatin Calcium [Crestor] 40 mg PO DAILY 05/23/17 [History] Metoprolol Succinate [Toprol Xl] 100 mg PO DAILY 09/02/17 [History] Acetaminophen [Tylenol] 500 mg PO 2XW PRN 02/17/18 [History] Hydralazine HCl 100 mg PO DAILY 02/17/18 [History] Insulin Degludec [Tresiba Flextouch U-200] 0 unit SQ AD 02/17/18 [History] Insulin LISPRO [Humalog Kwikpen U-200] 20 - 60 unit SQ TIDAC 02/17/18 [History] Warfarin [Coumadin] 10 mg PO HS 02/17/18 [History] Allergies/Adverse Reactions: Allergy/AdvReac Type Severity Reaction Status Date / Time Iodinated Contrast- Oral and Allergy Swelling Verified 02/17/18 09:13 IV Dye of [Iodinated Contrast Media - Lip/Tongue/Throat Oral and] red dye Allergy Rash Verified 02/17/18 09:13 Date of admission: 02/17/18 09:29 Primary care physician: Joan Lockhart Consults: 02/17/18 09:18 Consult to Nephrology [CONS] Stat Consulting Provider: Kidney Marva/PABLITO/DL/YESSICA Reason for Consult: ESRD on Dialysis M/W/F missed today Call Completed: Yes 02/17/18 09:56 Consult to Cardiology [CONS] Routine Comment: Consulting Provider: Cardiology Marva Reason for Consult: cad,stent, chest pain, T wave changes Call Completed: Yes 02/17/18 10:18 Consult to Cable Installer [CONS] Routine Reason for SW Consult: [facility] 02/17/18 10:30 Consult to Dialysis [CONS] QMWF 02/19/18 07:15 Consult to Dialysis [CONS] QMWF 02/19/18 10:30 Consult to Dialysis [CONS] QMWF 02/22/18 07:15 Consult to Dialysis [CONS] QMWF 02/22/18 10:30 Consult to Dialysis [CONS] QMWF 02/24/18 07:15 Consult to Dialysis [CONS] QMWF 02/24/18 10:30 Consult to Dialysis [CONS] QMWF 02/26/18 07:15 Consult to Dialysis [CONS] QMWF 02/26/18 10:30 Consult to Dialysis [CONS] QMWF 03/01/18 10:30 Consult to Dialysis [CONS] QMWF 03/03/18 10:30 Consult to Dialysis [CONS] QMWF 03/05/18 10:30 Consult to Dialysis [CONS] QMWF Discharging clinician: Ronn Mitchell Anticipated date of discharge: 02/19/18 - Constitutional Vitals: Temp Pulse Resp BP Pulse Ox 97.7 F 73 18 157/83 97 02/19/18 07:23 02/19/18 07:23 02/19/18 07:23 02/19/18 07:23 02/19/18 07:23 General appearance: Present: A&O X 3, pleasant, obese, answers questions appropriately Exam: . - Respiratory Respiratory exam: Present: CTAB. Absent: accessory muscle use, rales, rhonchi, wheezes - Cardiovascular Cardiovascular exam: Present: RRR, +S1, +S2. Absent: diastolic murmur, gallop, rubs, systolic murmur - GI/Abdominal GI/Abdominal exam: Present: normal bowel sounds, soft, no peritoneal signs. Absent: distended, tenderness - Extremities Exam Additional comments: Status post right BKA - Patient Status Disposition: Home Health Service Condition: Good Functional capacity at discharge: wheelchair bound Overall status at discharge: patient is progressing back to baseline - Discharge Instructions Instructions: Atrial Fibrillation (DC), Chest Pain (DC) Follow Up With: Joan Lockhart [Primary Care Provider] - 02/25/18 10:40 am - Diet and Activity Activity: increase activity as tolerated Diet: diabetic diet, low fat, low cholesterol, low salt diet - VTE Reasons for not Prescribing Prophylaxis: Not indicated-Anticoagulated or INR therapeutic
--- NOTE | 2018-02-19 11:57 | Physician Discharge Referral ---
Home Health/Hosp Referral Info Transfer to: Home Health Provider in Charge Post Discharge: PCP - Diagnosis (1) Chest pain Priority: Primary Status: Acute (2) Atrial fibrillation Priority: Secondary Status: Chronic (3) CAD (coronary artery disease) Priority: Secondary Status: Chronic (4) ESRD (end stage renal disease) on dialysis Priority: Secondary Status: Chronic (5) Insulin dependent type 2 diabetes mellitus Priority: Secondary Status: Chronic (6) Hypertension Priority: Secondary Status: Chronic (7) Morbid obesity with BMI of 40.0-44.9, adult Priority: Secondary Status: Chronic - Respiratory Orders Oxygen / L per min (2) Smoking Cessation: Smoking cessation has been advised. For more information, call the [place] Tobacco Quit Line at 7-833-CAOA-NOW. - Diet/Nutrition Diet/Nutrition Orders: Cardiac, No Concentrated Sweets (diabetic) - Activity Activity Orders: Walker - Services Needed Following services are medically necessary services: Nursing, Home Health Aide - Transfer Medications Home Medications: Allopurinol [Zyloprim 100 MG] 100 mg PO DAILY 05/23/17 [History] Aspirin Enteric Coated [Aspirin EC] 81 mg PO DAILY 05/23/17 [History] Calcium Acetate [Phos-LO] 1,334 mg PO TIDWM 05/23/17 [History] Ezetimibe [Zetia] 10 mg PO DAILY 05/23/17 [History] Folic Acid 1 mg PO DAILY 05/23/17 [History] Furosemide [Lasix] 40 mg PO QPM 05/23/17 [History] Gemfibrozil [Lopid] 600 mg PO BIDWM 05/23/17 [History] Levothyroxine [Synthroid] 200 mcg PO DAILY 05/23/17 [History] Rosuvastatin Calcium [Crestor] 40 mg PO DAILY 05/23/17 [History] Metoprolol Succinate [Toprol Xl] 100 mg PO DAILY 09/02/17 [History] Acetaminophen [Tylenol] 500 mg PO 2XW PRN 02/17/18 [History] Hydralazine HCl 100 mg PO DAILY 02/17/18 [History] Insulin Degludec [Tresiba Flextouch U-200] 0 unit SQ AD 02/17/18 [History] Insulin LISPRO [Humalog Kwikpen U-200] 20 - 60 unit SQ TIDAC 02/17/18 [History] Warfarin [Coumadin] 10 mg PO HS 02/17/18 [History] Allergies/Adverse Reactions: Allergy/AdvReac Type Severity Reaction Status Date / Time Iodinated Contrast- Oral and Allergy Swelling Verified 02/17/18 09:13 IV Dye of [Iodinated Contrast Media - Lip/Tongue/Throat Oral and] red dye Allergy Rash Verified 02/17/18 09:13 Certification: Further, I certify that my clinical findings support that this patient is homebound (i.e. absences from home require considerable and taxing effort and are for medical reasons or restoration services or infrequently or short duration when for other reasons) because: Homebound Reason: Patient requires assistance of a person or device to safely leave home Attestation: My signature below is to certify that this patient is under my care and that I, or nurse practitioner, or a physician's child care assistant working with me, has a [id number] encounter with this patient.
[2018-02-19 12:06] VITALS: BP 152/96
[2018-02-19] MEDS: Metoprolol XL (24 HR) Succ 50 MG TAB.ER.24H PO SCH (12:34)
[2018-02-19] MEDS ORDERED: *HR* Warfarin 10 MG TABLET PO ONE (18:00)
[2018-02-19] MEDS ORDERED: hydrALAZINE 25 MG TABLET PO SCH (21:00)
== END 2018-02-19 17:14 | disposition home health service (06) ==
LOC: EMEROOARM 06:47 → 2SOUTHHOLD 06:47 → SUATTDRO 09:29 → 2SOUTHHOLD 09:32 → 2ANU 02-18 19:38
PROVIDERS: ADMIT Hospitalist; ATTEND Internal Medicine

== ENCOUNTER 2018-08-13 10:32 | Observation (INO) ==
[2018-08-13 11:08] LABS: Basophils # 0.1 K/mcL (0.0-0.2); Basophils % 0.6 %; Eosinophils # 0.6 K/mcL (0.0-0.6); Eosinophils % 5.5 %; Hematocrit 39.4 % (37.5-50.1); Hemoglobin 13.2 g/dL (12.9-16.9); Immature Granulocytes % 0.4 % (0-4); Lymphocytes # 1.7 K/mcL (0.6-4.6); Lymphocytes % 15.3 %; Mean Corpuscular HGB Conc 33.5 g/dL (31.6-35.5); Mean Corpuscular Hemoglobin 30.8 pg (28.0-33.3); Mean Corpuscular Volume 91.8 fL (83.0-100.0); Mean Platelet Volume 10.3 fL (9.4-12.4); Monocytes # 1.1 K/mcL (0.0-1.3); Monocytes % 9.7 %; Neutrophils # 7.8 K/mcL (1.6-8.9); Platelet Count 285 K/mcL (140-400); Red Blood Count 4.29 M/mcL (4.19-5.50); Segmented Neutrophils % 68.5 %; White Blood Count 11.4 K/mcL (4.3-11.1)
[2018-08-13 11:17] LABS: INR 1.1; Prothrombin Time 12.5 Seconds (9.4-12.1)
[2018-08-13 11:19] LABS: Activated Partial Thrombo Time 43.9 Seconds (26.0-36.0)
[2018-08-13 11:29] LABS: Calcium 9.2 mg/dL (8.6-10.3); Potassium 3.4 mEq/L (3.5-5.1)
[2018-08-13 11:30] LABS: Troponin I 0.03 ng/mL (< 0.04)
--- NOTE | 2018-08-13 12:11 | Emergency Department Note ---
Disposition Clinical Impression: Chest pain Qualifiers: Chest pain type: unspecified Qualified Code(s): R07.9 - Chest pain, unspecified Disposition: Admitted As Inpatient Condition: Good Time of Disposition: 14:02 Chest Pain HPI - General Chief Complaint: ED Chest Pain Stated Complaint: Chest Pain Time Seen by Provider: 08/13/18 10:50 Source: patient, EMS Limitations: no limitations Vital Signs Reviewed: Yes Nursing Notes Reviewed: Yes - History of Present Illness HPI Narrative: This is a 58 year-old male with history of HTN, IDDM, CAD/TX/stent, ESRD, and DVT on Coumadin. He presents with sharp, intermittent left-sided chest pain that began 45 minutes prior to arrival, as he was finishing dialysis. Associated with increased shortness of breath. Patient also reports increased pain and swelling of the left leg for the past 2 days; he has a chronic foot ulcer treated at [place]. He denies any recent fever or cough. Received ASA prior to arrival. 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 Denies: nausea, vomiting, palpitations, fever, cough - Related Data Home Medications Medication Instructions Recorded Confirmed Allopurinol [Zyloprim 100 MG] 100 mg PO DAILY 05/23/17 08/13/18 Aspirin Enteric Coated [Aspirin EC] 81 mg PO DAILY 05/23/17 08/13/18 Calcium Acetate [Phos-LO] 1,334 mg PO TIDWM 05/23/17 08/13/18 Ezetimibe [Zetia] 10 mg PO DAILY 05/23/17 08/13/18 Folic Acid 1 mg PO DAILY 05/23/17 08/13/18 Furosemide [Lasix] 40 mg PO QPM 05/23/17 08/13/18 Gemfibrozil [Lopid] 600 mg PO BIDWM 05/23/17 08/13/18 Levothyroxine [Synthroid] 200 mcg PO DAILY 05/23/17 08/13/18 Rosuvastatin Calcium [Crestor] 40 mg PO DAILY 05/23/17 08/13/18 Metoprolol Succinate [Toprol Xl] 100 mg PO DAILY 09/02/17 08/13/18 Acetaminophen [Tylenol] 500 mg PO 2XW PRN 02/17/18 08/13/18 Hydralazine HCl 100 mg PO DAILY 02/17/18 08/13/18 Warfarin [Coumadin] 10 mg PO HS 02/17/18 08/13/18 Ergocalciferol (VITAMIN D2) 50,000 unit PO SA 08/13/18 08/13/18 [Vitamin D2] Subcutaneous Insulin Pump [T:Slim] 1 each MC AD 08/13/18 08/13/18 Allergies Allergy/AdvReac Type Severity Reaction Status Date / Time Iodinated Contrast- Oral and Allergy Swelling Verified 02/17/18 09:13 IV Dye of [Iodinated Contrast Media - Lip/Tongue/Throat Oral and] red dye Allergy Rash Verified 02/17/18 09:13 All systems ED: reviewed and negative except as stated. Review of Systems: As Per HPI Constitutional: Denies: fever Cardiovascular: Reports: chest pain, edema. Denies: syncope Respiratory: Reports: dyspnea. Denies: cough Gastrointestinal: Denies: abdominal pain, nausea, vomiting Neurological: Denies: headache, weakness, numbness Chest Pain PMH - Past Medical History Medical history: Reports: arthritis, atrial fibrillation, COPD, coronary artery disease, DVT, diabetes, dialysis, GERD, hyperlipidemia, hypertension, kidney stones, myocardial infarction, osteoporosis, peripheral artery disease, renal disease, thyroid disease, venous stasis, other Surgical history: Reports: other Psychiatric history: Reports: no psych history - Social History Smoking Status: Never smoker Alcohol use: Reports: none Drug use: Reports: none Physical Exam - General Limitations: no limitations General appearance: alert, in no apparent distress - Head Head exam: atraumatic, normocephalic - Eye Eye exam: Present: normal appearance - ENT ENT exam: normal exam - Neck Neck exam: Present: normal inspection - Respiratory Respiratory exam: Present: normal lung sounds bilaterally. Absent: respiratory distress - Cardiovascular Cardiovascular exam: Present: regular rate, normal rhythm, other (murmur noted) - Abdominal Exam Abdominal exam: Present: soft, Non-Tender. Absent: distention - Extremities Exam Extremities exam: Present: other (fistula left antecub, palpable thrill. S/p R BKA, swelling and plantar ulcer left foot) - Neurological Exam Neurological exam: Present: alert, oriented X3. Absent: motor sensory deficit - Psychiatric Psychiatric exam: Present: normal affect, normal mood Course - Reevaluation(s) Reevaluation #1: Resting comfortable. CP free. Time: 12:25 - Consultations Consultation #1: Reviewed case with Dr. Luther and patient accepted for admission. Time: 13:45 Vital Signs O2 Sat by Pulse Oximetry 99 08/13/18 10:45 Temperature 98.0 F 08/14/18 11:25 Pulse Rate 72 08/14/18 11:25 Respiratory Rate 16 08/14/18 11:25 Blood Pressure 137/75 08/14/18 11:25 O2 Sat by Pulse Oximetry 94 08/14/18 11:25 Oxygen Delivery Oxygen Delivery Nasal Cannula Chest Pain - Medical Records Medical records reviewed: Yes I reviewed the patient's medical records. - Lab Data Lab results reviewed: Yes I reviewed the patient's lab results. Result diagrams: 08/14/18 00:36 08/14/18 00:36 Lab Results 08/13/18 08/13/18 08/13/18 Range/Units 10:57 10:57 10:57 WBC 11.4 H (4.3-11.1) K/mcL RBC 4.29 (4.19-5.50) M/mcL Hgb 13.2 (12.9-16.9) g/dL Hct 39.4 (37.5-50.1) % MCV 91.8 (83.0-100.0) fL MCH 30.8 (28.0-33.3) pg MCHC 33.5 (31.6-35.5) g/dL RDW 13.0 (11.5-14.5) % Plt Count 285 (140-400) K/mcL MPV 10.3 (9.4-12.4) fL Immature Gran % 0.4 (0-4) % Seg Neutrophils % 68.5 % Lymphocytes % 15.3 % Monocytes % 9.7 % Eosinophils % 5.5 % Basophils % 0.6 % Neutrophils # 7.8 (1.6-8.9) K/mcL Lymphocytes # 1.7 (0.6-4.6) K/mcL Monocytes # 1.1 (0.0-1.3) K/mcL Eosinophils # 0.6 (0.0-0.6) K/mcL Basophils # 0.1 (0.0-0.2) K/mcL PT 12.5 H (9.4-12.1) Seconds INR 1.1 APTT 43.9 H (26.0-36.0) Seconds Sodium 134 L (136-145) mEq/L Potassium 3.4 L (3.5-5.1) mEq/L Chloride 94 L (98-107) mEq/L Carbon Dioxide 30 H (23-29) mEq/L BUN 19 (6-20) mg/dL Creatinine 2.41 H (0.70-1.30) mg/dL Est GFR ( Amer) 34 L (> 60) Est GFR (Non-Af Amer) 28 L (> 60) BUN/Creatinine Ratio 8 (6-26) Glucose 187 H (70-105) mg/dL Calculated Osmolality 285 (280-300) Calcium 9.2 (8.6-10.3) mg/dL Troponin I 0.03 (< 0.04) ng/mL - Radiology Data Radiology results reviewed: Yes I reviewed the patient's radiology results. CXR NAD - EKG Data EKG attestation: Yes I reviewed and interpreted this EKG. EKG results narrative: Normal sinus at 78. No acute ischemic findings noted. EKG shows normal: sinus rhythm Rate: normal Rhythm: NSR [place]/QRS: normal Interpretation: no acute changes
[2018-08-13] MEDS ORDERED: Naloxone 0.4 MG/ML INJ IVP PRN (15:29)
[2018-08-13] MEDS ORDERED: Ondansetron 4 MG/2 ML VIAL IVP PRN (15:29)
[2018-08-13] MEDS ORDERED: *HR* HYDROcodone/Acet 5/325 mg TABLET PO PRN (15:29)
[2018-08-13] MEDS ORDERED: Acetaminophen 325 MG TABLET PO PRN (15:29)
[2018-08-13] MEDS ORDERED: *HR* Dextrose 50 % in Water (Syg) 50 ML SYRINGE IVP PRN (15:46)
[2018-08-13] MEDS ORDERED: Dextrose Gel 15 GM/37.5 ML TUBE PO PRN ×2 (15:46)
[2018-08-13] MEDS ORDERED: D5% in Water 1,000 ML IVC PRN (15:46)
--- NOTE | 2018-08-13 15:57 | Internal Med History&Physical ---
Date of Encounter: 08/13/18 Time of Encounter: 15:52 Internal Medicine - H&P: HPI Chief complaint: Chest pain Admitted From: Emergency Dept Plans for Post Hospital Care: Home History of present illness: Mr. Oneal is a 58 year old male with a known past medical history of ESRD on HD M/W/F, CAD s/p PCI in 2012, severe PAD, Rt leg BKA, Left foot chronic non healing ulcer, HTN, HLD, DM2 and morbidly obese pt presented to ER with intermittent chest pain started this morning. Patient stated his chest pain located left chest wall region, radiating to his neck, intermittent pain, 6/10 in severity, more like pressure, sharp pain, lasts for 5 minutes associated with some nausea. He did go for his dialysis today. He denied any shortness of breath. In the ER his initial troponin came back as 0.03. EKG showed normal sinus rhythm and no acute ischemic changes noticed Past Med Surg Social Fam HX - Past Medical History Medical history: arthritis, atrial fibrillation, COPD, coronary artery disease, DVT, diabetes, dialysis, GERD, hyperlipidemia, hypertension, kidney stones, myocardial infarction, osteoporosis, peripheral artery disease, renal disease, thyroid disease, venous stasis, other Additional medical history: CRF. hypothyroidism Psychiatric history: no psych history - Past Surgical History Surgical History: other Additional surgical history: left toe amputation 2004, right foot surgery 2017 right BKA 2018 - Social History Smoking Status: Never smoker Smokeless Tobacco Status: No Alcohol use: none Drug use: none - Family History Mother Adopted: No Family Member Ethnicity: Non- Living Status: Hx Family Cardiac Disorders: No Hx Family Respiratory Disorders: No Hx Family Cancer: Yes Hx Family GI Disorders: Yes Hx Family Endocrine Disorder: Yes Hx Family Neuromuscular Disorders: No Hx Family Neurologic Disorders: No Hx Family HEENT Disorders: No Hx Family Autoimmune Disorders: No Father Adopted: No Family Member Ethnicity: Non- Living Status: Hx Family Cardiac Disorders: No Hx Family Respiratory Disorders: Yes Hx Family Cancer: Yes Hx Family GI Disorders: No Hx Family Endocrine Disorder: Yes Hx Family Neuromuscular Disorders: No Hx Family Neurologic Disorders: No Hx Family HEENT Disorders: No Hx Family Autoimmune Disorders: No Internal Medicine - H&P: Meds Allopurinol [Zyloprim 100 MG] 100 mg PO DAILY 05/23/17 [History] Aspirin Enteric Coated [Aspirin EC] 81 mg PO DAILY 05/23/17 [History] Calcium Acetate [Phos-LO] 1,334 mg PO TIDWM 05/23/17 [History] Ezetimibe [Zetia] 10 mg PO DAILY 05/23/17 [History] Folic Acid 1 mg PO DAILY 05/23/17 [History] Furosemide [Lasix] 40 mg PO QPM 05/23/17 [History] Gemfibrozil [Lopid] 600 mg PO BIDWM 05/23/17 [History] Levothyroxine [Synthroid] 200 mcg PO DAILY 05/23/17 [History] Rosuvastatin Calcium [Crestor] 40 mg PO DAILY 05/23/17 [History] Metoprolol Succinate [Toprol Xl] 100 mg PO DAILY 09/02/17 [History] Acetaminophen [Tylenol] 500 mg PO 2XW PRN 02/17/18 [History] Hydralazine HCl 100 mg PO DAILY 02/17/18 [History] Insulin Degludec [Tresiba Flextouch U-200] 0 unit SQ AD 02/17/18 [History] Insulin LISPRO [Humalog Kwikpen U-200] 20 - 60 unit SQ TIDAC 02/17/18 [History] Warfarin [Coumadin] 10 mg PO HS 02/17/18 [History] Allergy/AdvReac Type Severity Reaction Status Date / Time Iodinated Contrast- Oral and Allergy Swelling Verified 02/17/18 09:13 IV Dye of [Iodinated Contrast Media - Lip/Tongue/Throat Oral and] red dye Allergy Rash Verified 02/17/18 09:13 All Systems PM: A 10-system review of systems was performed and is negative for pertinent findings except as documented above in the HPI. Review of systems: All the systems are reviewed everything is benign except the systems and symptoms I mentioned in the history of present illness - Constitutional Vitals: Temp Pulse Resp BP Pulse Ox 98.3 F 70 17 118/76 95 08/13/18 15:42 08/13/18 15:42 08/13/18 15:42 08/13/18 15:42 08/13/18 15:42 General appearance: Present: cooperative, A&O X 3, no acute distress, answers questions appropriately Exam: a - Head Head exam: Present: atraumatic, normal inspection - Neck Neck exam general surgery: Present: supple - Respiratory Respiratory exam: Present: decreased breath sounds. Absent: rales, respiratory distress, rhonchi, wheezes - Cardiovascular Cardiovascular exam: Present: RRR, +S1, +S2. Absent: systolic murmur, tachycardia - GI/Abdominal GI/Abdominal exam: Present: normal bowel sounds, soft. Absent: rebound, rigid, tenderness - Extremities Exam Extremities exam: Present: pedal edema (1+ Left leg). Absent: calf tenderness, tenderness Additional comments: He does have Rt BKA.. Clean and normal stump of Rt leg He does have 1 cm size open wound in Left foot plantar region with serous discharge. No signs of cellulites noticed - Back Exam Back exam: Absent: CVA tenderness (L), CVA tenderness (R) - Neurological Exam Neurological exam: Present: alert, oriented X3 - Psychiatric Psychiatric exam: Present: normal affect, normal mood - Skin Skin exam: Present: dry. Absent: erythema Internal Med - H&P Results - Labs CBC & Chem 7: 08/13/18 10:57 08/13/18 10:57 Labs: Short CBC 08/13/18 Range/Units 10:57 WBC 11.4 H (4.3-11.1) K/mcL Hgb 13.2 (12.9-16.9) g/dL Hct 39.4 (37.5-50.1) % Plt Count 285 (140-400) K/mcL Neutrophils # 7.8 (1.6-8.9) K/mcL BMP 08/13/18 10:57 Sodium 134 L Potassium 3.4 L Chloride 94 L Carbon Dioxide 30 H BUN 19 Creatinine 2.41 H Glucose 187 H Calcium 9.2 Cardiac Enzymes 08/13/18 Range/Units 10:57 Troponin I 0.03 (< 0.04) ng/mL - Impressions ITS Impressions Chest X-Ray 08/13/18 10:46 IMPRESSION: No acute cardiopulmonary disease D/ / Hua Vargas MD / Hua Vargas MD Interpreting Provider: Hua Vargas MD - Assessment and Plan (1) Chest pain Current Visit: No Status: Acute Assessment and plan: Will admit the pt into Tele for observation Will place pt on maintenance supervisor check serial troponin so far negative troponin EKG reviewed - NSR, No acute ischemic changes noticed Cont pt on ASA and Nitro PRN for pain Cont Metoprolo,, Statin and Lasix Will check FLP in AM he did have normal stress test in 02/27 However with his ESRD, severe PAD, DM2 and morbid obesity high risk pt for ACS .. Consulted card for further eval Keep NPO after mid night Also started him on Imdur since he is not on any nitro supplements Qualifiers: Chest pain type: chest pain due to myocardial ischemia Ischemic chest pain type: stable angina pectoris Qualified Code(s): I20.8 - Other forms of angina pectoris (2) Diabetic foot ulcer Current Visit: No Status: Acute Assessment and plan: chronic non healing does not look infected need local wound care consulted system consultant Qualifiers: Diabetic foot ulcer location: other Diabetes mellitus type: type 2 Laterality: left Non-pressure ulcer stage: with fat layer exposed Qualified Code(s): E11.621 - Type 2 diabetes mellitus with foot ulcer; L97.522 - Non- pressure chronic ulcer of other part of left foot with fat layer exposed; L97.522 - Non-pressure chronic ulcer of other part of left foot with fat layer exposed; L97.522 - Non-pressure chronic ulcer of other part of left foot with fat layer exposed; L97.522 - Non-pressure chronic ulcer of other part of left foot with fat layer exposed (3) History of DVT (deep vein thrombosis) Current Visit: No Status: Acute Assessment and plan: on Coumadin for anti coag pharmacy to dose (4) CAD (coronary artery disease) Current Visit: No Status: Chronic Assessment and plan: Resumed all home medications Qualifiers: Coronary Disease-Associated Artery/Lesion type: [place] artery [place] vs. transplanted heart: [place] heart Associated angina: with stable angina Qualified Code(s): I25.118 - Atherosclerotic heart disease of [place] coronary artery with other forms of angina pectoris (5) Hx of BKA Current Visit: No Status: Acute Qualifiers: Laterality: right Qualified Code(s): Z89.511 - Acquired absence of right leg below knee (6) COPD (chronic obstructive pulmonary disease) Current Visit: No Status: Chronic Assessment and plan: Not in exacerbation continue home inhalers resident Qualifiers: COPD type: unspecified COPD Qualified Code(s): J44.9 - Chronic obstructive pulmonary disease, unspecified (7) Diabetes mellitus Current Visit: No Status: Chronic Assessment and plan: Uncontrolled diabetes will check HbA1C on ADA diet held his insulin pump placed him on Lispro 20 U TID + ISS Levemir 20 U HS Qualifiers: Diabetes mellitus type: type 2 Diabetes mellitus penitentiary insulin use: with penitentiary use Diabetes mellitus complication status: with kidney complic ations Diabetes mellitus complication detail: with chronic kidney disease Chronic kidney disease stage: stage 4 (severe) Qualified Code(s): E11.22 - Type 2 diabetes mellitus with diabetic chronic kidney disease; N18.4 - Chronic kidney disease, stage 4 (severe); Z79.4 - long term care administrator (current) use of insulin (8) Morbid obesity with BMI of 40.0-44.9, adult Current Visit: No Status: Chronic - Time Spent With Patient Total time spent is greater than 50% in coordination of care (as documented) at patient's floor/unit and/or counseling patient:
[2018-08-13] MEDS ORDERED: Nitroglycerin 0.4 MG TAB.SUBL SL PRN (16:04)
[2018-08-13] MEDS ORDERED: INSULIN LISPRO 20 UNIT SQ SCH (16:30)
[2018-08-13] MEDS ORDERED: *HR* Warfarin 10 MG TABLET PO ONE (18:00)
[2018-08-13] MEDS ORDERED: Furosemide 40 MG TABLET PO SCH (18:00)
[2018-08-13] MEDS ORDERED: Warfarin perPT PO PRN (18:00)
[2018-08-13] MEDS: Insulin LISPRO 300 UNITS/3 ML VIAL SQ SCH (18:06)
[2018-08-13] MEDS: Calcium Acetate 667 MG CAPSULE PO SCH (18:06)
[2018-08-13] MEDS: Isosorbide MONOnitrate (24 HR) 30 MG TAB.ER.24H PO SCH (18:32)
[2018-08-13 19:01] LABS: Estimated Average Glucose 278 mg/dl
[2018-08-13] MEDS ORDERED: Insulin LISPRO 300 UNITS/3 ML VIAL SQ SCH (21:00)
[2018-08-13] MEDS ORDERED: Insulin DETEMIR 100 UNIT/ML X5UNITS SQ SCH (21:00)
[2018-08-14 00:59] LABS: Basophils # 0.1 K/mcL (0.0-0.2); Basophils % 0.7 %; Eosinophils # 0.7 K/mcL (0.0-0.6); Eosinophils % 8.7 %; Hematocrit 38.1 % (37.5-50.1); Hemoglobin 12.4 g/dL (12.9-16.9); Immature Granulocytes % 0.4 % (0-4); Lymphocytes # 2.2 K/mcL (0.6-4.6); Mean Corpuscular HGB Conc 32.5 g/dL (31.6-35.5); Mean Corpuscular Hemoglobin 30.6 pg (28.0-33.3); Mean Corpuscular Volume 94.1 fL (83.0-100.0); Mean Platelet Volume 10.6 fL (9.4-12.4); Monocytes # 0.8 K/mcL (0.0-1.3); Monocytes % 9.8 %; Neutrophils # 4.6 K/mcL (1.6-8.9); Platelet Count 264 K/mcL (140-400); Red Blood Count 4.05 M/mcL (4.19-5.50); Red Cell Distribution Width 13.2 % (11.5-14.5); Segmented Neutrophils % 54.4 %; White Blood Count 8.4 K/mcL (4.3-11.1)
[2018-08-14 01:05] LABS: INR 1.2; Prothrombin Time 13.4 Seconds (9.4-12.1)
[2018-08-14 01:22] LABS: Potassium 3.8 mEq/L (3.5-5.1)
[2018-08-14 01:41] LABS: Calcium 8.9 mg/dL (8.6-10.3); Chol/HDL Ratio 5.7 (0-4.9)
[2018-08-14] MEDS ORDERED: Metoprolol XL (24 HR) Succ 50 MG TAB.ER.24H PO SCH (09:00)
[2018-08-14] MEDS ORDERED: (Ezetimibe [Zetia] 10 MG) PO SCH (09:00)
[2018-08-14] MEDS ORDERED: Aspirin Enteric Coated 81 MG Tablet PO SCH (09:00)
[2018-08-14] MEDS ORDERED: hydrALAZINE 25 MG TABLET PO SCH ×2 (09:00→12:00)
[2018-08-14] MEDS ORDERED: Folic Acid 1 MG TABLET PO SCH (09:00)
[2018-08-14] MEDS: Isosorbide MONOnitrate (24 HR) 30 MG TAB.ER.24H PO SCH (09:14)
[2018-08-14] MEDS: Insulin LISPRO 300 UNITS/3 ML VIAL SQ SCH ×2 (09:14→12:12)
[2018-08-14] MEDS: Calcium Acetate 667 MG CAPSULE PO SCH ×2 (09:15→12:11)
[2018-08-14 11:26] VITALS: BP 137/75
--- NOTE | 2018-08-14 11:38 | Cardiology Consult Note ---
<BishnuBetty J - Last Filed: 08/14/18 11:35> Date of Encounter: 08/14/18 Time of Encounter: 09:30 Assessment and Plan (1) Atypical chest pain Current Visit: No Status: Acute Per cardiology: -Admitted with atypical, reproduceable chest pain. -ECG with no acute ischemic changes noted. -Troponins negative x3. -STress test 02/2018 negative for ischemia. -TTE 02/2018 with LVEF preserved, no wall motion abnormalities. -With reproduceable chest pain, no further inpatient cardiology recommendations warranted. -Follows with cardiology outpatient. (2) CAD (coronary artery disease) Current Visit: No Status: Chronic Per cardiology: -Known CAD s/p PCI to RCA 2011, otherwise had remaining mild, non-obstructive CAD. -On asa, statin, BB, imdur. -Continue current medical therapy. Qualifiers: Coronary Disease-Associated Artery/Lesion type: [place] artery [place] vs. transplanted heart: [place] heart Associated angina: without angina Qualified Code(s): I25.10 - Atherosclerotic heart disease of [place] coronary artery without angina pectoris (3) Essential hypertension Current Visit: Yes Status: Chronic Per cardiology: -Known HTN. -ON BB, hydralazine 100mg daily. -BPs 110-150s systolic. -Will switch hydralazine to 25mg QID. -Continue to monitor BPs. Discussion w patient/family: The assessment and plan as outlined above was discussed with the patient who expressed understanding and agreement. All questions were answered. Thank you for involving us in the care of your patient. Please call with any questions. Discussed and reviewed with . History of Present Illness Consult date: 08/13/18 Requesting physician: Kamille Starkey Consult reason: chest pain Chief complaint: chest pain History of present illness: Mr. Oneal is a 58 year old male with a relevant past medical history of CAD s/p PCI 2011, ESRD on HD, PAF, DVT, HTN, PVD s/p right BKA, HLD, DM, hypothyroidism, who presented to [facility] with complaints of chest pain. Patient states he was nearing the end of his dialysis treatment, when he had sudden onset of chest pain. Patient states pain "was in my booby." Denies radiation of chest pain. Denies associated symptoms. Patient reports no current chest pain, "unless I touch my chest." Past Med Surg Social Fam HX - Past Medical History Attestation: Yes The following information was validated with the patient. Source: patient, old records reviewed Medical history: arthritis, atrial fibrillation, COPD, coronary artery disease, DVT, diabetes, dialysis, GERD, hyperlipidemia, hypertension, kidney stones, myocardial infarction, osteoporosis, peripheral artery disease, renal disease, thyroid disease, venous stasis, other Additional medical history: CRF. hypothyroidism Psychiatric history: no psych history - Past Surgical History Surgical History: other Additional surgical history: left toe amputation 2004, right foot surgery 2017 right BKA 2018 - Social History Smoking Status: Never smoker Smokeless Tobacco Status: No Alcohol use: none Drug use: none - Family History Mother Adopted: No Family Member Ethnicity: Non- Living Status: Hx Family Cardiac Disorders: No Hx Family Respiratory Disorders: No Hx Family Cancer: Yes Hx Family GI Disorders: Yes Hx Family Endocrine Disorder: Yes Hx Family Neuromuscular Disorders: No Hx Family Neurologic Disorders: No Hx Family HEENT Disorders: No Hx Family Autoimmune Disorders: No Father Adopted: No Family Member Ethnicity: Non- Living Status: Hx Family Cardiac Disorders: No Hx Family Respiratory Disorders: Yes Hx Family Cancer: Yes Hx Family GI Disorders: No Hx Family Endocrine Disorder: Yes Hx Family Neuromuscular Disorders: No Hx Family Neurologic Disorders: No Hx Family HEENT Disorders: No Hx Family Autoimmune Disorders: No Medications and Allergies Allopurinol [Zyloprim 100 MG] 100 mg PO DAILY 05/23/17 [History] Aspirin Enteric Coated [Aspirin EC] 81 mg PO DAILY 05/23/17 [History] Calcium Acetate [Phos-LO] 1,334 mg PO TIDWM 05/23/17 [History] Ezetimibe [Zetia] 10 mg PO DAILY 05/23/17 [History] Folic Acid 1 mg PO DAILY 05/23/17 [History] Furosemide [Lasix] 40 mg PO QPM 05/23/17 [History] Gemfibrozil [Lopid] 600 mg PO BIDWM 05/23/17 [History] Levothyroxine [Synthroid] 200 mcg PO DAILY 05/23/17 [History] Rosuvastatin Calcium [Crestor] 40 mg PO DAILY 05/23/17 [History] Metoprolol Succinate [Toprol Xl] 100 mg PO DAILY 09/02/17 [History] Acetaminophen [Tylenol] 500 mg PO 2XW PRN 02/17/18 [History] Hydralazine HCl 100 mg PO DAILY 02/17/18 [History] Warfarin [Coumadin] 10 mg PO HS 02/17/18 [History] Ergocalciferol (VITAMIN D2) [Vitamin D2] 50,000 unit PO SA 08/13/18 [History] Subcutaneous Insulin Pump [T:Slim] 1 each MC AD 08/13/18 [History] Allergy/AdvReac Type Severity Reaction Status Date / Time Iodinated Contrast- Oral and Allergy Swelling Verified 02/17/18 09:13 IV Dye of [Iodinated Contrast Media - Lip/Tongue/Throat Oral and] red dye Allergy Rash Verified 02/17/18 09:13 All Systems Review: The remainder of the systems were reviewed and are negative - Cardiovascular Cardiovascular: as per HPI, chest pain at rest Physical Examination Vital Signs, Last 4 Hours Temp Pulse Resp BP Pulse Ox 08/14/18 11:25 98.0 F 72 16 137/75 94 General: Conversant, No Apparent Distress HEENT: Atraumatic, Normocephaly, Mucus Membranes Moist Neck: No JVD, Normal carotid pulses Cardiac: Reg Rate and Rhythm, Normal S1 and S2, No Murmur Lungs: Normal Breath Sounds, No Wheeze, Rales, Rhonchi Neuro: Alert and responsive, No focal deficits noted Abdomen: Soft, Non-Tender Skin: No rashes noted on visualized skin, Other (Discoloration noted to left lower extremity. ) Musculoskeletal: No Chest Wall Tenderness Extremities: No Clubbing, No Cyanosis, No Edema, Normal Pulses, Other (Right BKA. ) Results 08/14/18 00:36 08/14/18 00:36 Lab Results Active Medications Acetaminophen (Tylenol) 650 mg PO Q6HR PRN PRN Reason: Mild Pain/Fever Stop: 02/12/19 15:30 Hydrocodone Bitart/Acetaminophen ([place] 5-325 Mg) 1 tab PO Q6HR PRN PRN Reason: Moderate Pain Stop: 02/12/19 15:30 Last Admin: 08/13/18 18:32 Dose: 1 tab Documented by: Allopurinol (Zyloprim) 100 mg PO DAILY [facility] Stop: 02/13/19 09:01 Last Admin: 08/14/18 09:15 Dose: 100 mg Documented by: Aspirin (Aspirin Ec) 81 mg PO DAILY [facility] Stop: 02/13/19 09:01 Last Admin: 08/14/18 09:14 Dose: 81 mg Documented by: Calcium Acetate (Phos-Lo) 1,334 mg PO TIDWM [facility] Stop: 02/12/19 17:01 Last Admin: 08/14/18 09:15 Dose: Not Given Documented by: Dextrose/Water (Dextrose 50% (Syg)) 25 ml IVP AD PRN PRN Reason: Hypoglycemia Stop: 02/12/19 15:47 Docusate Sodium (Colace) 100 mg PO BID PRN PRN Reason: Constipation Stop: 02/12/19 21:01 Folic Acid (Folic Acid) 1 mg PO DAILY [facility] Stop: 02/13/19 09:01 Last Admin: 08/14/18 09:14 Dose: 1 mg Documented by: Furosemide (Lasix) 40 mg PO QPM [facility] Stop: 02/12/19 18:01 Last Admin: 08/13/18 18:32 Dose: 40 mg Documented by: Gemfibrozil (Lopid) 600 mg PO BIDWM [facility] Stop: 02/12/19 17:01 Last Admin: 08/14/18 09:14 Dose: 600 mg Documented by: Glucagon (Glucagen) 1 mg IM ONCE PRN PRN Reason: Hypoglycemia Stop: 02/12/19 15:47 Glucose (Gluctose) 15 gm PO ONCE PRN PRN Reason: Hypoglycemia Stop: 02/12/19 15:47 Glucose (Gluctose) 30 gm PO ONCE PRN PRN Reason: Hypoglycemia Stop: 02/12/19 15:47 Hydralazine HCl (Hydralazine) 25 mg PO Q6HR [facility] Stop: 02/13/19 12:01 Dextrose (Dextrose 5%) 1,000 mls @ 100 mls/hr IVC .Q10H PRN PRN Reason: HYPOGLYCEMIA Stop: 02/12/19 15:47 Insulin Detemir (Levemir) 20 unit 0.15 unit/kg (20 unit) SQ HS [facility] Stop: 02/12/19 21:01 Last Admin: 08/13/18 21:47 Dose: 20 unit Documented by: Insulin Human Lispro (Humalog) 0 units SQ HS [facility]; Protocol Stop: 02/12/19 21:01 Last Admin: 08/13/18 21:45 Dose: 4 units Documented by: Insulin Human Lispro (Humalog) 0 units SQ TIDAC [facility]; Protocol Stop: 02/12/19 16:31 Last Admin: 08/14/18 09:14 Dose: Not Given Documented by: Isosorbide Mononitrate (Imdur) 30 mg PO DAILY [facility] Stop: 02/12/19 16:16 Last Admin: 08/14/18 09:14 Dose: 30 mg Documented by: Levothyroxine Sodium (Synthroid) 200 mcg PO DAILY@0630 [facility] Stop: 02/13/19 06:31 Last Admin: 08/14/18 05:47 Dose: 200 mcg Documented by: Metoprolol Succinate (Toprol Xl) 100 mg PO DAILY [facility] Stop: 02/13/19 09:01 Last Admin: 08/14/18 09:14 Dose: 100 mg Documented by: Naloxone HCl (Narcan) 0.4 mg IVP Q2MPRN PRN PRN Reason: SEE COMMENTS Stop: 02/12/19 15:30 Nitroglycerin (Nitroglycerin) 0.4 mg SL Q5MPRN PRN PRN Reason: Chest Pain Stop: 02/12/19 16:05 Ondansetron HCl (Zofran) 4 mg IVP Q8HR PRN PRN Reason: Nausea And Vomiting Stop: 02/12/19 15:30 Pharmacy Profile Note (Patient Taking Own Medication) 1 each PO DAILY [facility] Stop: 02/13/19 09:01 Rosuvastatin Calcium (Crestor) 40 mg PO DAILY@2100 [facility] Stop: 02/12/19 21:01 Last Admin: 08/13/18 20:00 Dose: 40 mg Documented by: Warfarin Sodium (Coumadin Perpt) 1 each PO DAILY@1800 PRN PRN Reason: SEE COMMENTS Stop: 02/12/19 18:01 Laboratory Tests 08/13/18 08/13/18 08/13/18 10:57 17:10 23:02 Hgb Creatinine Troponin I 0.03 0.03 0.03 08/14/18 08/14/18 00:36 00:36 Hgb 12.4 L Creatinine 4.06 H Troponin I - Imaging and Cardiology Chest Xray: report reviewed Stress Test: report reviewed Echo: report reviewed Cardiac cath: report reviewed - EKG Interpretation EKG results cardiology: personally reviewed (ECG with SR, HR 77.), other (Telemetry reviewed with average HR previous 12 hours noted to be 84, SR. PVCs, PACs noted.) Consult Discharge Plan - Plan Referrals: Joan Lockhart [Primary Care Provider] - <Sheila Boudreaux - Last Filed: 08/14/18 14:04> Date of Encounter: 08/14/18 - Attending Attestation I examined this patient and my medical decision-making was reviewed with the [employer] DOOR MAKER. I agree with the documented findings, disposition and treatment plan as described. Admitted with atypical chest pain that is reproducible on anterior wall palpation. ECG without ischemic changes. Serial troponins negative. Stress testing February 2018 negative for ischemia. No further cardiac testing warranted at this time. Will sign off. Assessment and Plan Discussion w patient/family: The assessment and plan as outlined above was discussed with the patient and/or family members who expressed understanding and agreement. All questions were answered. Thank you for involving us in the care of your patient. Please call with any questions. History of Present Illness History of present illness: Mr. Oneal is a 58 year old male All Systems Review: The remainder of the systems were reviewed and are negative Physical Examination Vital Signs, Last 4 Hours Temp Pulse Resp BP Pulse Ox 08/14/18 11:25 98.0 F 72 16 137/75 94 Results 08/14/18 00:36 08/14/18 00:36 Lab Results 08/13/18 08/13/18 08/14/18 17:10 23:02 00:36 WBC 8.4 Hgb 12.4 L Hct 38.1 Plt Count 264 INR Sodium Potassium Chloride Carbon Dioxide BUN Creatinine Glucose Calcium Troponin I 0.03 0.03 08/14/18 08/14/18 00:36 00:36 WBC Hgb Hct Plt Count INR 1.2 Sodium 134 L Potassium 3.8 Chloride 93 L Carbon Dioxide 29 BUN 32 H Creatinine 4.06 H Glucose 320 H Calcium 8.9 Troponin I
--- NOTE | 2018-08-14 12:21 | Podiatry Consult Note ---
Date of Encounter: 08/14/18 Time of Encounter: 12:19 Assessment and Plan (1) Diabetic ulcer of left foot associated with diabetes mellitus due to underlying condition Current visit: Yes Status: Acute Assessment #1: Diabetic foot ulcer plantar aspect left fifth MTPJ. #2: Multiple comorbidities as outlined in history Plan #1: Present with present antibiotic therapy. #2 recommend for x-rays and inflammatory markers. #3 we will begin local wound care until such time patient is discharged returns to wound care clinic and [facility] Qualifiers: Diabetic foot ulcer location: other Non-pressure ulcer stage: with fat layer exposed Qualified Code(s): E08.621 - Diabetes mellitus due to underlying condition with foot ulcer; L97.522 - Non-pressure chronic ulcer of other part of left foot with fat layer exposed History of Present Illness Chief complaint: Foot ulcer left HPI: Mr. Oneal is a 58 year old male presents to [facility] with chest pain with a history of left foot ulcer beneath the fifth MTPJ. He has no nausea vomiting fever chills that could be directly turbid to a [facility] his left foot. This wound is chronic. He is presently under the care of [facility]. Patient states a "Dr. brooks was to take a bone out of my foot". Patient states he has no specific time line. Patient cannot relate to me exactly what is presently being done for him as far as wound care is concerned. Known diabetic and marginal to poor control with a history of BKA right. Past Med Surg Social Fam HX - Past Medical History Medical history: arthritis, atrial fibrillation, COPD, coronary artery disease, DVT, diabetes, dialysis, GERD, hyperlipidemia, hypertension, kidney stones, myocardial infarction, osteoporosis, peripheral artery disease, renal disease, thyroid disease, venous stasis, other Additional medical history: CRF. hypothyroidism Psychiatric history: no psych history - Past Surgical History Surgical History: other Additional surgical history: left toe amputation 2005, right foot surgery 2017 right BKA 2018 - Social History Smoking Status: Never smoker Smokeless Tobacco Status: No Alcohol use: none Drug use: none - Family History Mother Adopted: No Family Member Ethnicity: Non- Living Status: Hx Family Cardiac Disorders: No Hx Family Respiratory Disorders: No Hx Family Cancer: Yes Hx Family GI Disorders: Yes Hx Family Endocrine Disorder: Yes Hx Family Neuromuscular Disorders: No Hx Family Neurologic Disorders: No Hx Family HEENT Disorders: No Hx Family Autoimmune Disorders: No Father Adopted: No Family Member Ethnicity: Non- Living Status: Hx Family Cardiac Disorders: No Hx Family Respiratory Disorders: Yes Hx Family Cancer: Yes Hx Family GI Disorders: No Hx Family Endocrine Disorder: Yes Hx Family Neuromuscular Disorders: No Hx Family Neurologic Disorders: No Hx Family HEENT Disorders: No Hx Family Autoimmune Disorders: No Medications and Allergies Allopurinol [Zyloprim 100 MG] 100 mg PO DAILY 05/23/17 [History] Aspirin Enteric Coated [Aspirin EC] 81 mg PO DAILY 05/23/17 [History] Calcium Acetate [Phos-LO] 1,334 mg PO TIDWM 05/23/17 [History] Ezetimibe [Zetia] 10 mg PO DAILY 05/23/17 [History] Folic Acid 1 mg PO DAILY 05/23/17 [History] Furosemide [Lasix] 40 mg PO QPM 05/23/17 [History] Gemfibrozil [Lopid] 600 mg PO BIDWM 05/23/17 [History] Levothyroxine [Synthroid] 200 mcg PO DAILY 05/23/17 [History] Rosuvastatin Calcium [Crestor] 40 mg PO DAILY 05/23/17 [History] Metoprolol Succinate [Toprol Xl] 100 mg PO DAILY 09/02/17 [History] Acetaminophen [Tylenol] 500 mg PO 2XW PRN 02/17/18 [History] Hydralazine HCl 100 mg PO DAILY 02/17/18 [History] Warfarin [Coumadin] 10 mg PO HS 02/17/18 [History] Ergocalciferol (VITAMIN D2) [Vitamin D2] 50,000 unit PO SA 08/13/18 [History] Subcutaneous Insulin Pump [T:Slim] 1 each MC AD 08/13/18 [History] Allergy/AdvReac Type Severity Reaction Status Date / Time Iodinated Contrast- Oral and Allergy Swelling Verified 02/17/18 09:13 IV Dye of [Iodinated Contrast Media - Lip/Tongue/Throat Oral and] red dye Allergy Rash Verified 02/17/18 09:13 All Systems Reviewed: The remainder of the systems were reviewed and are negative Physical Exam - Constitutional Vitals: Temp Pulse Resp BP Pulse Ox 98.0 F 72 16 137/75 94 08/14/18 11:25 08/14/18 11:25 08/14/18 11:25 08/14/18 11:25 08/14/18 11:25 General appearance: morbidly obese - Expanded Lower Extremities Exam Gait: Present: not tested/not observed - Neurological Exam Neurological exam IM: Present: oriented X3, no focal deficits Additional comments: Complete loss of protective sensation epicritic vibratory 2 point discrimination light touch from toes to tibia left side only. - Psychiatric Psychiatric exam: Present: normal affect - Skin Skin Exam: Present: ulceration (Ulcer plantar aspect fifth MTPJ left foot measuring approximately 1.8 cm in width 1.5 cm in length and 1.0 cm in depth. There is no spreading cellulitis or lymphangitis odor purulence necrosis or fluctuance that can be noted. Probing to bone is equivocal. We will observe x- rays. She considered a [place] grade 2 ulceration until proven otherwise.), onychomycosis - Vascular Capillary Refill: Immediate Lower Extremity Vascular: sensory deficit Left Popliteal: 1+ Left Dorsalis Pedis: 1+ Right Posterior Tibialis: Unable to Assess Left Posterior Tibialis: 1+ Edema Location: Present: Ankle, Foot, Leg Edema Degree: 1+ Edema Edema Comment: Pitting - Ankle & Foot Appearance ankle: swelling Results - Labs Result Diagrams: 08/14/18 00:36 08/14/18 00:36 Labs: Abnormal lab results WBC 11.4 K/mcL (4.3-11.1) H 08/13/18 10:57 RBC 4.05 M/mcL (4.19-5.50) L 08/14/18 00:36 Hgb 12.4 g/dL (12.9-16.9) L 08/14/18 00:36 0.7 K/mcL (0.0-0.6) H 08/14/18 00:36 PT 13.4 Seconds (9.4-12.1) H 08/14/18 00:36 APTT 43.9 Seconds (26.0-36.0) H 08/13/18 10:57 Sodium 134 mEq/L (136-145) L 08/14/18 00:36 Potassium 3.4 mEq/L (3.5-5.1) L 08/13/18 10:57 Chloride 93 mEq/L (98-107) L 08/14/18 00:36 Carbon Dioxide 30 mEq/L (23-29) H 08/13/18 10:57 BUN 32 mg/dL (6-20) H 08/14/18 00:36 4.06 mg/dL (0.70-1.30) H 08/14/18 00:36 Est GFR ( Amer) 18 (> 60) L 08/14/18 00:36 Est GFR (Non-Af Amer) 15 (> 60) L 08/14/18 00:36 Glucose 320 mg/dL (70-105) H 08/14/18 00:36 POC Glucose 257 mg/dL (70-99) H 08/13/18 21:17 11.3 % (-5.6) H 08/13/18 17:10 Triglycerides 359 mg/dL (< 150) H 08/14/18 00:36 VLDL Cholesterol, Calc 72 mg/dL (< 31) H 08/14/18 00:36 28 mg/dL (40-59) L 08/14/18 00:36 5.7 (0-4.9) H 08/14/18 00:36 H & H 08/14/18 Range/Units 00:36 Hgb 12.4 L (12.9-16.9) g/dL Hct 38.1 (37.5-50.1) % All other labs normal. - Diagnostic results Ankle/Foot x-ray: pending Consult Discharge Plan - Plan Referrals: Joan Lockhart [Primary Care Provider] -
--- NOTE | 2018-08-14 12:51 | Discharge Summary ---
- NOTES TO OUTPATIENT PROVIDER Notes to Outpatient Provider: Came with chest pain, musculoskeltal. Orders not resulted at time of discharge: Pending orders 08/13/18 10:46 ECG 12 lead ECG [ECG] Stat 08/15/18 04:00 Prothrombin Time INR [COAG] AM 0400 08/16/18 04:00 Prothrombin Time INR [COAG] AM 0400 08/17/18 04:00 Prothrombin Time INR [COAG] AM 0400 Date of Encounter: 08/14/18 Time of Encounter: 12:30 - Discharge Diagnosis (1) CAD (coronary artery disease) Priority: Primary Status: Chronic Qualifiers: Coronary Disease-Associated Artery/Lesion type: [place] artery [place] vs. 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 insulin use: with termite control service representative use Diabetes mellitus complication status: with kidney co mplications Diabetes mellitus complication detail: with chronic kidney disease Chronic kidney disease stage: stage 4 (severe) Qualified Code(s): E11.22 - Type 2 diabetes mellitus with diabetic chronic kidney disease; N18.4 - Chronic kidney disease, stage 4 (severe); Z79.4 - termite control service representative (current) use of insulin (4) Morbid obesity with BMI of 40.0-44.9, adult Priority: Secondary Status: Chronic (5) Diabetic foot ulcer Priority: Secondary Status: Acute Qualifiers: Diabetic foot ulcer location: other Diabetes mellitus type: type 2 Laterality: left Non-pressure ulcer stage: with fat layer exposed Qualified Code(s): E11.621 - Type 2 diabetes mellitus with foot ulcer; L97.522 - Non- pressure chronic ulcer of other part of left foot with fat layer exposed; L97.522 - Non-pressure chronic ulcer of other part of left foot with fat layer exposed; L97.522 - Non-pressure chronic ulcer of other part of left foot with fat layer exposed; L97.522 - Non-pressure chronic ulcer of other part of left foot with fat layer exposed (6) History of DVT (deep vein thrombosis) Priority: Secondary Status: Acute (7) Hx of BKA Priority: Secondary Status: Acute Qualifiers: Laterality: right Qualified Code(s): Z89.511 - Acquired absence of right leg below knee (8) Chest pain Priority: Secondary Status: Acute Qualifiers: Chest pain type: chest pain due to myocardial ischemia Ischemic chest pain type: stable angina pectoris Qualified Code(s): I20.8 - Other forms of angina pectoris Hospital course: Mr. Oneal is a 58 year old male with a past medical history significant for diabetes mellitus, COPD, DVT, hypertension, hyperlipidemia, [place], presented to the emergency department because of left-sided chest pain. Patient denied any nausea, fever, chills, vomiting. EKG in the emergency department showed normal sinus rhythm and no acute changes. Troponin levels were within normal limits. Cardiology was consulted. In the morning, patient was evaluated again and the patient aspirin was reproducible. As per cariology, no further workup is required at this point. Patient can be discharged from their standpoint. Discussed the plan with the patient and the patient is okay with discharge. Patient instructed to follow up with the cardiology as an outpatient. Patient had a stress test in February this year and there is no plan to do any further stress test. Patient arthrodesis 2 diabetes mellitus. Patient will do glucose levels were high in the hospital. Likely because the patient was not an insulin pump. Patient is supposed to go back on insulin pump. Patient voiced understanding. - Time Spent with Patient Total time spent providing and/or coordinating discharge services: 32 min - Discharge Medications Prescriptions: Continued Folic Acid 1 mg PO DAILY Furosemide [Lasix] 40 mg PO QPM Ezetimibe [Zetia] 10 mg PO DAILY Aspirin Enteric Coated [Aspirin EC] 81 mg PO DAILY Levothyroxine [Synthroid] 200 mcg PO DAILY Gemfibrozil [Lopid] 600 mg PO BIDWM Calcium Acetate [Phos-LO] 1,334 mg PO TIDWM Allopurinol [Zyloprim 100 MG] 100 mg PO DAILY Rosuvastatin Calcium [Crestor] 40 mg PO DAILY Metoprolol Succinate [Toprol Xl] 100 mg PO DAILY Acetaminophen [Tylenol] 500 mg PO 2XW PRN PRN Reason: Pain Warfarin [Coumadin] 10 mg PO HS Hydralazine HCl 100 mg PO DAILY Subcutaneous Insulin Pump [T:Slim] 1 each AD Ergocalciferol (VITAMIN D2) [Vitamin D2] 50,000 unit PO Home Medications: Allopurinol [Zyloprim 100 MG] 100 mg PO DAILY 05/23/17 [History] Aspirin Enteric Coated [Aspirin EC] 81 mg PO DAILY 05/23/17 [History] Calcium Acetate [Phos-LO] 1,334 mg PO TIDWM 05/23/17 [History] Ezetimibe [Zetia] 10 mg PO DAILY 05/23/17 [History] Folic Acid 1 mg PO DAILY 05/23/17 [History] Furosemide [Lasix] 40 mg PO QPM 05/23/17 [History] Gemfibrozil [Lopid] 600 mg PO BIDWM 05/23/17 [History] Levothyroxine [Synthroid] 200 mcg PO DAILY 05/23/17 [History] Rosuvastatin Calcium [Crestor] 40 mg PO DAILY 05/23/17 [History] Metoprolol Succinate [Toprol Xl] 100 mg PO DAILY 09/02/17 [History] Acetaminophen [Tylenol] 500 mg PO 2XW PRN 02/17/18 [History] Hydralazine HCl 100 mg PO DAILY 02/17/18 [History] Warfarin [Coumadin] 10 mg PO HS 02/17/18 [History] Ergocalciferol (VITAMIN D2) [Vitamin D2] 50,000 unit PO SA 08/13/18 [History] Subcutaneous Insulin Pump [T:Slim] 1 each AD 08/13/18 [History] Allergies/Adverse Reactions: Allergy/AdvReac Type Severity Reaction Status Date / Time Iodinated Contrast- Oral and Allergy Swelling Verified 02/17/18 09:13 IV Dye of [Iodinated Contrast Media - Lip/Tongue/Throat Oral and] red dye Allergy Rash Verified 02/17/18 09:13 Date of admission: 08/13/18 14:25 Primary care physician: Joan Lockhart Consults: 08/13/18 15:50 Consult to Cardiology [CONS] Routine Comment: Consulting Provider: [facility] Reason for Consult: Known ESRD pt came with chest pain.. Normal stress test in 02/27 Time Notified: 15:52 Call Completed: Yes 08/13/18 16:02 Consult to Podiatry [CONS] Routine Consulting Provider: [facility] Reason for Consult: Left foot ulcer Time Notified: 16:04 Call Completed: Yes 08/14/18 07:41 Consult to Nephrology [CONS] Routine Consulting Provider: [facility]/PABLITO/DL/YESSICA Reason for Consult: Pt with esrd on HD Call Completed: Yes - Constitutional Vitals: Temp Pulse Resp BP Pulse Ox 98.0 F 72 16 137/75 94 08/14/18 11:25 08/14/18 11:25 08/14/18 11:25 08/14/18 11:25 08/14/18 11:25 General appearance: Present: cooperative, A&O X 3, no acute distress, answers questions appropriately Exam: General: Alert and oriented, no physical distress, able to follow commands. HEENT: No thyromegaly, no lymphadenopathy, no discharge. Eyes: No discharge. Respiratory: Normal vesicular breathing, no added sounds, breathing equal in both sides. CVS: Normal heart sounds, no murmurs, no edema. Left isded Extremities: No peripheral edema, peripheral pulses intact. Lymph nodes: No lymphadenopathy Gastrointestinal: Soft, nontender abdomen, normal abdominal sounds. No distention noted. Genitourinary: No paravertebral tenderness. Neurological: Alert and oriented. No focal deficits. Cranial nerves II-XII intact. - Patient Status Disposition: Home, Self-Care Condition: Good Overall status at discharge: patient is back to baseline - Discharge Instructions Follow Up With: oJan Lockhart [Primary Care Provider] - - Diet and Activity Activity: increase activity as tolerated Diet: advance to your usual diet
[2018-08-14] MEDS ORDERED: *HR* Warfarin 10 MG TABLET PO ONE (18:00)
--- NOTE | 2018-08-15 09:21 | Electrocardiograph Report ---
[facility] Test Date: 2018-08-13 Pat Name: Silviano Oneal Department: EXAM12 Room: 2A16 Gender: Investigations Director: : 1960 Requested By: Abhijit Fonseca Order Number: [id number] Reading MD: Jason Alarcon Measurements Intervals [place] Rate: 77 P: 38 SC: 168 QRS: 7 QRSD: 100 T: 61 QT: 423 QTc: 479 Interpretive Statements Sinus rhythm Borderline prolonged QT interval Electronically Signed On 08-15-2018 9:19:24 EDT by Jason Alarcon
== END 2018-08-14 17:45 | disposition home or self-care (01) ==
LOC: EMEROOARM 10:32 → 2ANU 10:32 → SUATTDRO 14:25 → 2ANU 15:14
PROVIDERS: ADMIT Internal Medicine; ATTEND Internal Medicine

== ENCOUNTER 2018-09-17 06:43 | Observation (INO) ==
[2018-09-17] MEDS ORDERED: Aspirin 81 MG TAB.CHEW PO ONE (06:46)
[2018-09-17 07:30] LABS: Basophils # 0.1 K/mcL (0.0-0.2); Basophils % 1.4 %; Eosinophils # 0.8 K/mcL (0.0-0.6); Eosinophils % 12.3 %; Hematocrit 36.6 % (37.5-50.1); Hemoglobin 11.7 g/dL (12.9-16.9); Immature Granulocytes % 0.3 % (0-4); Lymphocytes # 1.8 K/mcL (0.6-4.6); Mean Corpuscular Hemoglobin 30.5 pg (28.0-33.3); Mean Corpuscular Volume 95.6 fL (83.0-100.0); Mean Platelet Volume 10.3 fL (9.4-12.4); Monocytes # 0.5 K/mcL (0.0-1.3); Monocytes % 8.2 %; Platelet Count 311 K/mcL (140-400); Red Blood Count 3.83 M/mcL (4.19-5.50); Red Cell Distribution Width 13.8 % (11.5-14.5); Segmented Neutrophils % 48.8 %; White Blood Count 6.2 K/mcL (4.3-11.1)
[2018-09-17 07:52] LABS: INR 2.8; Prothrombin Time 31.3 Seconds (9.4-12.1)
[2018-09-17 07:55] LABS: Activated Partial Thrombo Time 75.9 Seconds (26.0-36.0)
[2018-09-17 08:22] LABS: Calcium 9.3 mg/dL (8.6-10.3); Potassium 4.6 mEq/L (3.5-5.1); Troponin I 0.04 ng/mL (< 0.04)
[2018-09-17] MEDS ORDERED: Naloxone 0.4 MG/ML INJ IVP PRN (09:40)
[2018-09-17] MEDS ORDERED: Ondansetron 4 MG/2 ML VIAL IVP PRN (09:40)
[2018-09-17] MEDS ORDERED: Acetaminophen 325 MG TABLET PO PRN (09:40)
[2018-09-17] MEDS ORDERED: *HR* Dextrose 50 % in Water (Syg) 50 ML SYRINGE IVP PRN (09:54)
[2018-09-17] MEDS ORDERED: Dextrose Gel 15 GM/37.5 ML TUBE PO PRN ×2 (09:54)
[2018-09-17] MEDS ORDERED: D5% in Water 1,000 ML IVC PRN (09:54)
[2018-09-17] MEDS: (Ezetimibe [Zetia] 10 MG) PO SCH (10:30)
[2018-09-17] MEDS: Metoprolol XL (24 HR) Succ 50 MG TAB.ER.24H PO SCH (10:30)
[2018-09-17] MEDS: Aspirin Enteric Coated 81 MG Tablet PO SCH (10:30)
[2018-09-17] MEDS: Insulin LISPRO 300 UNITS/3 ML VIAL SQ SCH ×2 (12:08→17:33)
[2018-09-17] MEDS: Calcium Acetate 667 MG CAPSULE PO SCH ×2 (12:09→17:32)
[2018-09-17] MEDS ORDERED: Insulin DETEMIR 100 UNIT/ML X5UNITS SQ ONE (16:53)
[2018-09-17] MEDS: Furosemide 40 MG TABLET PO SCH (17:33)
[2018-09-17] MEDS ORDERED: *HR* Warfarin 10 MG TABLET PO ONE (18:00)
[2018-09-17] MEDS ORDERED: Warfarin perPT PO PRN (18:00)
[2018-09-17] MEDS ORDERED: Insulin LISPRO 300 UNITS/3 ML VIAL SQ SCH (21:00)
[2018-09-18 02:50] LABS: Basophils # 0.1 K/mcL (0.0-0.2); Basophils % 1.2 %; Eosinophils # 0.7 K/mcL (0.0-0.6); Hematocrit 34.9 % (37.5-50.1); Hemoglobin 11.4 g/dL (12.9-16.9); Immature Granulocytes % 0.2 % (0-4); Lymphocytes # 1.5 K/mcL (0.6-4.6); Lymphocytes % 28.7 %; Mean Corpuscular HGB Conc 32.7 g/dL (31.6-35.5); Mean Corpuscular Hemoglobin 31.1 pg (28.0-33.3); Mean Corpuscular Volume 95.4 fL (83.0-100.0); Monocytes # 0.4 K/mcL (0.0-1.3); Monocytes % 7.7 %; Neutrophils # 2.5 K/mcL (1.6-8.9); Platelet Count 262 K/mcL (140-400); Red Blood Count 3.66 M/mcL (4.19-5.50); Red Cell Distribution Width 13.6 % (11.5-14.5); Segmented Neutrophils % 48.2 %; White Blood Count 5.2 K/mcL (4.3-11.1)
[2018-09-18 03:05] LABS: INR 3.5; Prothrombin Time 39.7 Seconds (9.4-12.1)
[2018-09-18 03:11] LABS: Calcium 8.9 mg/dL (8.6-10.3); Magnesium 1.9 mg/dL (1.6-2.6); Potassium 4.6 mEq/L (3.5-5.1)
[2018-09-18] MEDS: Insulin LISPRO 300 UNITS/3 ML VIAL SQ SCH ×4 (06:17→23:45)
[2018-09-18] MEDS ORDERED: Perflutren Lipid Microsphere 1.3 ML in 0.9 % Sodium Chloride 8.7 ML IVP ONE (07:25)
[2018-09-18] MEDS: Folic Acid 1 MG TABLET PO SCH (10:06)
[2018-09-18] MEDS: Calcium Acetate 667 MG CAPSULE PO SCH ×3 (10:06→18:19)
[2018-09-18] MEDS: Aspirin Enteric Coated 81 MG Tablet PO SCH (10:06)
[2018-09-18] MEDS: (Ezetimibe [Zetia] 10 MG) PO SCH (10:07)
[2018-09-18] MEDS: Metoprolol XL (24 HR) Succ 50 MG TAB.ER.24H PO SCH (10:07)
[2018-09-18] MEDS: hydrALAZINE 25 MG TABLET PO SCH (10:07)
[2018-09-18] MEDS ORDERED: 0.9 % Sodium Chloride 250 ML IVC PRN (11:01)
[2018-09-18] MEDS ORDERED: 0.9 % Sodium Chloride 1,000 ML PRIME SCH (11:15)
[2018-09-18] MEDS ORDERED: *HR* Dextrose 50 % in Water (Syg) 50 ML SYRINGE IVP PRN (16:51)
[2018-09-18] MEDS ORDERED: Dextrose Gel 15 GM/37.5 ML TUBE PO PRN ×2 (16:51)
[2018-09-18] MEDS ORDERED: D5% in Water 1,000 ML IVC PRN (16:51)
[2018-09-18] MEDS ORDERED: Insulin NPH 100 UNIT/ML (x5UNIT) SQ ONE (17:06)
[2018-09-18] MEDS ORDERED: *HR* Warfarin 5 MG TABLET PO ONE (18:00)
[2018-09-18] MEDS: Furosemide 40 MG TABLET PO SCH (18:19)
[2018-09-18 19:15] LABS: Estimated Average Glucose 237 mg/dl
[2018-09-19 03:49] LABS: Hematocrit 35.4 % (37.5-50.1); Hemoglobin 11.5 g/dL (12.9-16.9); Mean Corpuscular HGB Conc 32.5 g/dL (31.6-35.5); Mean Corpuscular Hemoglobin 30.7 pg (28.0-33.3); Mean Corpuscular Volume 94.4 fL (83.0-100.0); Mean Platelet Volume 10.4 fL (9.4-12.4); Platelet Count 272 K/mcL (140-400); Red Blood Count 3.75 M/mcL (4.19-5.50); Red Cell Distribution Width 13.8 % (11.5-14.5); White Blood Count 6.1 K/mcL (4.3-11.1)
[2018-09-19 03:56] LABS: INR 3.6; Prothrombin Time 40.7 Seconds (9.4-12.1)
[2018-09-19 03:57] LABS: Phosphorous 4.5 mg/dL (2.7-4.5); Potassium 4.2 mEq/L (3.5-5.1)
[2018-09-19 03:59] LABS: Chol/HDL Ratio 5.8 (0-4.9)
[2018-09-19] MEDS: Insulin LISPRO 300 UNITS/3 ML VIAL SQ SCH ×4 (05:21→23:39)
[2018-09-19] MEDS ORDERED: Insulin DETEMIR 100 UNIT/ML X5UNITS SQ SCH (09:00)
[2018-09-19] MEDS: Calcium Acetate 667 MG CAPSULE PO SCH ×3 (10:29→17:21)
[2018-09-19] MEDS: Folic Acid 1 MG TABLET PO SCH (10:29)
[2018-09-19] MEDS: Aspirin Enteric Coated 81 MG Tablet PO SCH (10:29)
[2018-09-19] MEDS: Metoprolol XL (24 HR) Succ 50 MG TAB.ER.24H PO SCH (10:30)
[2018-09-19] MEDS: (Ezetimibe [Zetia] 10 MG) PO SCH (10:30)
[2018-09-19] MEDS: hydrALAZINE 25 MG TABLET PO SCH (10:30)
[2018-09-19] MEDS: Furosemide 40 MG TABLET PO SCH (17:21)
[2018-09-20 04:22] LABS: Basophils # 0.1 K/mcL (0.0-0.2); Basophils % 1.2 %; Eosinophils # 0.7 K/mcL (0.0-0.6); Hematocrit 34.4 % (37.5-50.1); Hemoglobin 11.2 g/dL (12.9-16.9); Immature Granulocytes % 0.2 % (0-4); Lymphocytes # 1.9 K/mcL (0.6-4.6); Lymphocytes % 30.9 %; Mean Corpuscular HGB Conc 32.6 g/dL (31.6-35.5); Mean Corpuscular Hemoglobin 30.6 pg (28.0-33.3); Mean Platelet Volume 10.2 fL (9.4-12.4); Monocytes # 0.5 K/mcL (0.0-1.3); Neutrophils # 2.8 K/mcL (1.6-8.9); Platelet Count 263 K/mcL (140-400); Red Blood Count 3.66 M/mcL (4.19-5.50); Red Cell Distribution Width 13.5 % (11.5-14.5); Segmented Neutrophils % 46.7 %
[2018-09-20 04:27] LABS: INR 3.4; Prothrombin Time 39.1 Seconds (9.4-12.1)
[2018-09-20 04:36] LABS: Calcium 9.1 mg/dL (8.6-10.3); Potassium 4.2 mEq/L (3.5-5.1)
[2018-09-20] MEDS: Insulin LISPRO 300 UNITS/3 ML VIAL SQ SCH ×2 (06:43→11:34)
[2018-09-20] MEDS ORDERED: 0.9 % Sodium Chloride 250 ML IVC PRN (07:01)
[2018-09-20] MEDS ORDERED: Insulin DETEMIR 100 UNIT/ML X5UNITS SQ SCH (09:00)
[2018-09-20] MEDS: hydrALAZINE 25 MG TABLET PO SCH (10:45)
[2018-09-20] MEDS: Folic Acid 1 MG TABLET PO SCH (10:46)
[2018-09-20] MEDS: Metoprolol XL (24 HR) Succ 50 MG TAB.ER.24H PO SCH (10:46)
[2018-09-20] MEDS: Aspirin Enteric Coated 81 MG Tablet PO SCH (10:46)
[2018-09-20] MEDS: Calcium Acetate 667 MG CAPSULE PO SCH ×2 (10:56→11:08)
[2018-09-20] MEDS: (Ezetimibe [Zetia] 10 MG) PO SCH (10:59)
[2018-09-20] MEDS ORDERED: *HR* Heparin 10,000 UNIT/10 ML VIAL IV PRN (11:41)
[2018-09-20 16:14] VITALS: BP 131/77
[2018-09-20] MEDS ORDERED: *HR* Warfarin 5 MG TABLET PO ONE (18:00)
== END 2018-09-20 18:40 | disposition home or self-care (01) ==
LOC: EMEROOARM 06:43 → 3BNU 06:43 → SUATTDRO 08:44 → 3BNU 09:21
PROVIDERS: ADMIT Internal Medicine; ATTEND Internal Medicine

== ENCOUNTER 2018-12-22 10:38 | Inpatient (IN) ==
[2018-12-22] MEDS ORDERED: Ondansetron 4 MG/2 ML VIAL IVP ONE (11:11)
[2018-12-22] MEDS ORDERED: *HR* FentaNYL (PF) 100 MCG/2 ML VIAL IVP ONE (11:11)
[2018-12-22 11:26] LABS: Basophils % 0.3 %; Eosinophils # 0.2 K/mcL (0.0-0.6); Eosinophils % 1.7 %; Hematocrit 33.9 % (37.5-50.1); Hemoglobin 11.3 g/dL (12.9-16.9); Immature Granulocytes % 0.6 % (0-4); Lymphocytes # 1.2 K/mcL (0.6-4.6); Lymphocytes % 9.6 %; Mean Corpuscular HGB Conc 33.3 g/dL (31.6-35.5); Mean Corpuscular Hemoglobin 29.4 pg (28.0-33.3); Mean Corpuscular Volume 88.3 fL (83.0-100.0); Mean Platelet Volume 10.3 fL (9.4-12.4); Monocytes % 8.2 %; Neutrophils # 9.9 K/mcL (1.6-8.9); Platelet Count 411 K/mcL (140-400); Red Blood Count 3.84 M/mcL (4.19-5.50); Red Cell Distribution Width 14.8 % (11.5-14.5); Segmented Neutrophils % 79.6 %; White Blood Count 12.5 K/mcL (4.3-11.1)
[2018-12-22 11:43] LABS: Albumin 3.1 g/dL (3.5-5.7); Albumin/Globulin Ratio 0.9 (1.1-2.2); Bilirubin,Total 0.3 mg/dL (0.3-1.0); Calcium 8.6 mg/dL (8.6-10.3); Globulin 3.6 g/dL (2.4-3.5); Potassium 3.7 mEq/L (3.5-5.1); Total Protein 6.7 g/dL (6.4-8.9)
[2018-12-22] MEDS ORDERED: Naloxone 0.4 MG/ML INJ IVP PRN (14:57)
[2018-12-22] MEDS ORDERED: D5% in Water 1,000 ML IVC PRN (15:02)
[2018-12-22] MEDS ORDERED: Dextrose Gel 15 GM/37.5 ML TUBE PO PRN ×2 (15:02)
[2018-12-22] MEDS ORDERED: *HR* Dextrose 50 % in Water (Syg) 50 ML SYRINGE IVP PRN (15:02)
[2018-12-22] MEDS: Insulin LISPRO 300 UNITS/3 ML VIAL SQ SCH (16:43)
[2018-12-22 18:12] LABS: INR 2.9; Prothrombin Time 33.2 Seconds (9.4-12.1)
[2018-12-22] MEDS: hydrALAZINE 25 MG TABLET PO SCH (21:43)
[2018-12-22] MEDS: Furosemide 40 MG TABLET PO SCH (21:43)
[2018-12-22] MEDS: Acetaminophen 325 MG TABLET PO PRN (21:43)
[2018-12-22] MEDS: Insulin DETEMIR 100 UNIT/ML X5UNITS SQ SCH (22:35)
[2018-12-23] MEDS: Insulin LISPRO 300 UNITS/3 ML VIAL SQ SCH ×5 (01:09→21:02)
[2018-12-23 02:02] LABS: Basophils # 0.1 K/mcL (0.0-0.2); Basophils % 0.5 %; Eosinophils # 0.4 K/mcL (0.0-0.6); Eosinophils % 3.6 %; Hematocrit 31.5 % (37.5-50.1); Hemoglobin 10.1 g/dL (12.9-16.9); Immature Granulocytes % 0.5 % (0-4); Lymphocytes # 1.1 K/mcL (0.6-4.6); Lymphocytes % 10.4 %; Mean Corpuscular HGB Conc 32.1 g/dL (31.6-35.5); Mean Corpuscular Hemoglobin 29.2 pg (28.0-33.3); Mean Platelet Volume 10.6 fL (9.4-12.4); Monocytes % 10.2 %; Neutrophils # 7.7 K/mcL (1.6-8.9); Platelet Count 374 K/mcL (140-400); Red Blood Count 3.46 M/mcL (4.19-5.50); Red Cell Distribution Width 14.9 % (11.5-14.5); Segmented Neutrophils % 74.8 %; White Blood Count 10.2 K/mcL (4.3-11.1)
[2018-12-23 02:06] LABS: INR 2.5; Prothrombin Time 28.5 Seconds (9.4-12.1)
[2018-12-23 02:20] LABS: Albumin 2.9 g/dL (3.5-5.7); Albumin/Globulin Ratio 0.9 (1.1-2.2); Bilirubin,Total 0.2 mg/dL (0.3-1.0); Calcium 8.1 mg/dL (8.6-10.3); Globulin 3.4 g/dL (2.4-3.5); Total Protein 6.3 g/dL (6.4-8.9)
[2018-12-23] MEDS: Acetaminophen 325 MG TABLET PO PRN ×2 (06:09→22:39)
[2018-12-23 06:46] LABS: Acinetobacter baumannii by PCR Not Detected (Not Detect); Enterobacter cloacae Cmplx PCR Not Detected (Not Detect); Enterobacteriaceae by PCR Not Detected (Not Detect); Enterococcus by PCR Not Detected (Not Detect); Staphylococcus aureus by PCR DETECTED (Not Detect); Streptococcus agalactiae(B)PCR Not Detected (Not Detect); Streptococcus by PCR Not Detected (Not Detect); Streptococcus pneumoniae PCR Not Detected (Not Detect); Streptococcus pyogenes (A) PCR Not Detected (Not Detect); blaKPC Carbapenem-Resist Gene Not Detected (Not Detect); mecA Methicillin-Resist Gene DETECTED (Not Detect); vanA/B Vancomycin-Resist Genes Not Detected (Not Detect)
[2018-12-23 06:47] LABS: Candida albicans by PCR Not Detected (Not Detect); Candida glabrata by PCR Not Detected (Not Detect); Candida krusei by PCR Not Detected (Not Detect); Candida parapsilosis by PCR Not Detected (Not Detect); Candida tropicalis by PCR Not Detected (Not Detect); Escherichia coli by PCR Not Detected (Not Detect); Klebsiella oxytoca by PCR Not Detected (Not Detect); Klebsiella pneumoniae by PCR Not Detected (Not Detect); Proteus by PCR Not Detected (Not Detect); Pseudomonas aeruginosa by PCR Not Detected (Not Detect); Serratia marcescens by PCR Not Detected (Not Detect)
[2018-12-23] MEDS: Furosemide 40 MG TABLET PO SCH ×2 (08:36→20:57)
[2018-12-23] MEDS: Aspirin Enteric Coated 81 MG Tablet PO SCH (08:36)
[2018-12-23] MEDS: Metoprolol XL (24 HR) Succ 50 MG TAB.ER.24H PO SCH (08:36)
[2018-12-23] MEDS: amLODIPine 5 MG TABLET PO SCH (08:36)
[2018-12-23] MEDS: hydrALAZINE 25 MG TABLET PO SCH ×2 (08:37→20:57)
[2018-12-23] MEDS: Gabapentin 300 MG CAPSULE PO SCH (08:37)
[2018-12-23] MEDS: Insulin DETEMIR 100 UNIT/ML X5UNITS SQ SCH ×2 (08:52→21:02)
[2018-12-23] MEDS ORDERED: Cefepime HCl 1,000 MG in 0.9 % Sodium Chloride Mini Bag 100 ML IVPB ONE (16:07)
[2018-12-23] MEDS ORDERED: Warfarin perPT PO PRN (18:00)
[2018-12-23] MEDS ORDERED: *HR* Warfarin 7.5 MG TABLET PO ONE (18:00)
[2018-12-23] MEDS ORDERED: Perflutren Lipid Microsphere 1.3 ML in 0.9 % Sodium Chloride 8.7 ML IVP ONE (20:50)
[2018-12-23] MEDS ORDERED: Melatonin 3 MG TABLET PO PRN (21:43)
[2018-12-24 02:37] LABS: Prothrombin Time 23.3 Seconds (9.4-12.1)
[2018-12-24] MEDS: Insulin LISPRO 300 UNITS/3 ML VIAL SQ SCH ×4 (07:16→21:00)
[2018-12-24] MEDS: Insulin DETEMIR 100 UNIT/ML X5UNITS SQ SCH ×2 (07:44→20:54)
[2018-12-24] MEDS: hydrALAZINE 25 MG TABLET PO SCH ×2 (07:45→20:40)
[2018-12-24] MEDS: Furosemide 40 MG TABLET PO SCH ×2 (07:45→20:41)
[2018-12-24] MEDS: Metoprolol XL (24 HR) Succ 50 MG TAB.ER.24H PO SCH (07:45)
[2018-12-24] MEDS: amLODIPine 5 MG TABLET PO SCH (07:45)
[2018-12-24] MEDS: Aspirin Enteric Coated 81 MG Tablet PO SCH (07:45)
[2018-12-24] MEDS: Gabapentin 300 MG CAPSULE PO SCH (07:45)
[2018-12-24] MEDS ORDERED: Vancomycin 1 EACH in 0.9 % Sodium Chloride 250 ML IVPB PRN (09:00)
[2018-12-24 12:56] LABS: Calcium 7.8 mg/dL (8.6-10.3); Potassium 4.1 mEq/L (3.5-5.1)
[2018-12-24] MEDS ORDERED: 0.9 % Sodium Chloride 1,000 ML ONE (13:43)
[2018-12-24] MEDS ORDERED: 0.9 % Sodium Chloride 250 ML IVC PRN (14:08)
[2018-12-24] MEDS ORDERED: 0.9 % Sodium Chloride 1,000 ML PRIME SCH (14:15)
[2018-12-24] MEDS ORDERED: *HR* Heparin 10,000 UNIT/10 ML VIAL IV PRN (14:29)
[2018-12-24] MEDS ORDERED: Cefepime HCl 2,000 MG in 0.9 % Sodium Chloride Mini Bag 100 ML IVPB SCH (18:00)
[2018-12-24] MEDS ORDERED: *HR* Warfarin 10 MG TABLET PO ONE (18:00)
[2018-12-25] MEDS: Acetaminophen 325 MG TABLET PO PRN (05:45)
[2018-12-25] MEDS: Metoprolol XL (24 HR) Succ 50 MG TAB.ER.24H PO SCH (09:12)
[2018-12-25] MEDS: hydrALAZINE 25 MG TABLET PO SCH ×2 (09:12→20:36)
[2018-12-25] MEDS: Furosemide 40 MG TABLET PO SCH ×2 (09:12→20:36)
[2018-12-25] MEDS: Aspirin Enteric Coated 81 MG Tablet PO SCH (09:12)
[2018-12-25] MEDS: Insulin DETEMIR 100 UNIT/ML X5UNITS SQ SCH ×2 (09:12→20:36)
[2018-12-25] MEDS: Gabapentin 300 MG CAPSULE PO SCH (09:13)
[2018-12-25] MEDS: amLODIPine 5 MG TABLET PO SCH (09:13)
[2018-12-25] MEDS: Insulin LISPRO 300 UNITS/3 ML VIAL SQ SCH ×4 (10:02→20:36)
[2018-12-25 14:45] LABS: Basophils # 0.1 K/mcL (0.0-0.2); Basophils % 0.6 %; Eosinophils # 0.5 K/mcL (0.0-0.6); Eosinophils % 5.5 %; Hematocrit 30.4 % (37.5-50.1); Hemoglobin 9.6 g/dL (12.9-16.9); Immature Granulocytes % 0.9 % (0-4); Immature Platelets 3.1 % (1.1-6.1); Lymphocytes # 1.5 K/mcL (0.6-4.6); Lymphocytes % 16.6 %; Mean Corpuscular HGB Conc 31.6 g/dL (31.6-35.5); Mean Corpuscular Hemoglobin 29.3 pg (28.0-33.3); Mean Corpuscular Volume 92.7 fL (83.0-100.0); Mean Platelet Volume 10.1 fL (9.4-12.4); Monocytes # 0.8 K/mcL (0.0-1.3); Monocytes % 9.5 %; Neutrophils # 5.8 K/mcL (1.6-8.9); Nucleated Red Blood Cells 0.2 /100 WBC (0); Platelet Count 446 K/mcL (140-400); Red Blood Count 3.28 M/mcL (4.19-5.50); Segmented Neutrophils % 66.9 %; White Blood Count 8.7 K/mcL (4.3-11.1)
[2018-12-25 14:53] LABS: INR 2.2
[2018-12-25 15:04] LABS: Calcium 7.7 mg/dL (8.6-10.3); Potassium 3.9 mEq/L (3.5-5.1)
[2018-12-25] MEDS ORDERED: *HR* Warfarin 7.5 MG TABLET PO ONE (18:00)
[2018-12-26] MEDS: Metoprolol XL (24 HR) Succ 50 MG TAB.ER.24H PO SCH (09:06)
[2018-12-26] MEDS: hydrALAZINE 25 MG TABLET PO SCH ×2 (09:06→21:13)
[2018-12-26] MEDS: Aspirin Enteric Coated 81 MG Tablet PO SCH (09:06)
[2018-12-26] MEDS: Furosemide 40 MG TABLET PO SCH ×2 (09:07→21:13)
[2018-12-26] MEDS: Gabapentin 300 MG CAPSULE PO SCH (09:07)
[2018-12-26] MEDS: amLODIPine 5 MG TABLET PO SCH (09:07)
[2018-12-26] MEDS: Insulin LISPRO 300 UNITS/3 ML VIAL SQ SCH ×4 (09:15→21:55)
[2018-12-26] MEDS: Insulin DETEMIR 100 UNIT/ML X5UNITS SQ SCH ×2 (09:16→21:55)
[2018-12-26 14:58] LABS: Basophils # 0.1 K/mcL (0.0-0.2); Basophils % 0.5 %; Eosinophils # 0.6 K/mcL (0.0-0.6); Eosinophils % 4.7 %; Hematocrit 30.3 % (37.5-50.1); Immature Granulocytes % 1.1 % (0-4); Lymphocytes # 1.9 K/mcL (0.6-4.6); Lymphocytes % 15.7 %; Mean Corpuscular Hemoglobin 29.9 pg (28.0-33.3); Mean Corpuscular Volume 90.4 fL (83.0-100.0); Mean Platelet Volume 10.1 fL (9.4-12.4); Monocytes % 8.2 %; Neutrophils # 8.2 K/mcL (1.6-8.9); Nucleated Red Blood Cells 0.2 /100 WBC (0); Platelet Count 520 K/mcL (140-400); Red Blood Count 3.35 M/mcL (4.19-5.50); Red Cell Distribution Width 15.2 % (11.5-14.5); Segmented Neutrophils % 69.8 %; White Blood Count 11.8 K/mcL (4.3-11.1)
[2018-12-26 15:04] LABS: Prothrombin Time 34.7 Seconds (9.4-12.1)
[2018-12-26 15:16] LABS: Calcium 7.9 mg/dL (8.6-10.3); Potassium 4.1 mEq/L (3.5-5.1)
[2018-12-26] MEDS ORDERED: *HR* Warfarin 2.5 MG TABLET PO ONE (18:00)
[2018-12-26] MEDS: Acetaminophen 325 MG TABLET PO PRN (18:54)
[2018-12-27 05:21] LABS: Basophils # 0.1 K/mcL (0.0-0.2); Basophils % 0.3 %; Eosinophils # 0.6 K/mcL (0.0-0.6); Eosinophils % 3.1 %; Hematocrit 29.9 % (37.5-50.1); Hemoglobin 9.9 g/dL (12.9-16.9); Lymphocytes # 2.7 K/mcL (0.6-4.6); Lymphocytes % 15.4 %; Mean Corpuscular HGB Conc 33.1 g/dL (31.6-35.5); Mean Corpuscular Hemoglobin 29.4 pg (28.0-33.3); Mean Corpuscular Volume 88.7 fL (83.0-100.0); Monocytes # 1.2 K/mcL (0.0-1.3); Monocytes % 6.6 %; Neutrophils # 12.8 K/mcL (1.6-8.9); Nucleated Red Blood Cells 0.1 /100 WBC (0); Platelet Count 602 K/mcL (140-400); Red Blood Count 3.37 M/mcL (4.19-5.50); Red Cell Distribution Width 15.1 % (11.5-14.5); Segmented Neutrophils % 73.6 %; White Blood Count 17.5 K/mcL (4.3-11.1)
[2018-12-27 05:31] LABS: INR 3.5; Prothrombin Time 39.8 Seconds (9.4-12.1)
[2018-12-27 05:43] LABS: Calcium 7.9 mg/dL (8.6-10.3); Potassium 3.8 mEq/L (3.5-5.1)
[2018-12-27] MEDS: Insulin LISPRO 300 UNITS/3 ML VIAL SQ SCH ×4 (08:06→21:02)
[2018-12-27] MEDS ORDERED: 0.9 % Sodium Chloride 250 ML IVC PRN (08:14)
[2018-12-27] MEDS ORDERED: 0.9 % Sodium Chloride 1,000 ML PRIME SCH (08:15)
[2018-12-27] MEDS ORDERED: Piperacillin/Tazobactam 3.375 GM in 0.9 % Sodium Chloride Mini Bag 100 ML IVPB SCH ×2 (12:00→16:00)
[2018-12-27] MEDS: Insulin DETEMIR 100 UNIT/ML X5UNITS SQ SCH ×2 (15:11→21:02)
[2018-12-27] MEDS: Gabapentin 300 MG CAPSULE PO SCH (15:12)
[2018-12-27] MEDS: Metoprolol XL (24 HR) Succ 50 MG TAB.ER.24H PO SCH (15:12)
[2018-12-27] MEDS: Aspirin Enteric Coated 81 MG Tablet PO SCH (15:12)
[2018-12-27] MEDS: Furosemide 40 MG TABLET PO SCH ×2 (15:12→21:02)
[2018-12-27] MEDS: amLODIPine 5 MG TABLET PO SCH (15:12)
[2018-12-27] MEDS: hydrALAZINE 25 MG TABLET PO SCH ×2 (15:12→21:02)
[2018-12-28 01:16] LABS: INR 2.2; Prothrombin Time 24.5 Seconds (9.4-12.1)
[2018-12-28] MEDS: Piperacillin/Tazobactam 3.375 GM in 0.9 % Sodium Chloride Mini Bag 100 ML IVPB SCH ×2 (02:25→16:44)
[2018-12-28 02:35] LABS: Hepatitis B Surface Antigen Nonreactive (Nonreactive)
[2018-12-28 03:18] LABS: Hepatitis B Surface Antibody 8.39 mIU/mL
[2018-12-28] MEDS: Insulin LISPRO 300 UNITS/3 ML VIAL SQ SCH ×3 (07:19→16:44)
[2018-12-28] MEDS: amLODIPine 5 MG TABLET PO SCH (08:22)
[2018-12-28] MEDS: Gabapentin 300 MG CAPSULE PO SCH (08:22)
[2018-12-28] MEDS: Aspirin Enteric Coated 81 MG Tablet PO SCH (08:22)
[2018-12-28] MEDS: hydrALAZINE 25 MG TABLET PO SCH (08:23)
[2018-12-28] MEDS: Metoprolol XL (24 HR) Succ 50 MG TAB.ER.24H PO SCH (08:23)
[2018-12-28] MEDS: Insulin DETEMIR 100 UNIT/ML X5UNITS SQ SCH (08:23)
[2018-12-28] MEDS: Furosemide 40 MG TABLET PO SCH (08:23)
[2018-12-28 15:18] VITALS: BP 169/78
[2018-12-28] MEDS ORDERED: *HR* Warfarin 7.5 MG TABLET PO ONE (18:00)
[2018-12-28] MEDS ORDERED: Aminoglycoside Consult 1 EACH MC ONE (20:29)
== END 2018-12-28 20:30 | disposition short-term general hospital (02) | DRG 349 ==
LOC: EMEROOARM 10:38 → 3BNU 10:38 → SUATTDRO 14:21 → 3BNU 15:07
PROVIDERS: ADMIT Internal Medicine; ATTEND Internal Medicine

== ENCOUNTER 2019-04-13 05:34 | Observation (INO) ==
[2019-04-13] MEDS ORDERED: Ketorolac 30 MG/ML VIAL IVP ONE (06:20)
[2019-04-13] MEDS ORDERED: Metoclopramide 10 MG/2 ML VIAL IVP ONE (06:20)
[2019-04-13 06:33] LABS: Basophils # 0.1 K/mcL (0.0-0.2); Basophils % 0.4 %; Eosinophils # 0.1 K/mcL (0.0-0.6); Eosinophils % 0.8 %; Hematocrit 41.7 % (37.5-50.1); Hemoglobin 12.7 g/dL (12.9-16.9); Immature Granulocytes % 0.9 % (0-4); Lymphocytes # 1.1 K/mcL (0.6-4.6); Lymphocytes % 8.3 %; Mean Corpuscular HGB Conc 30.5 g/dL (31.6-35.5); Mean Corpuscular Hemoglobin 28.3 pg (28.0-33.3); Mean Corpuscular Volume 92.9 fL (83.0-100.0); Mean Platelet Volume 10.4 fL (9.4-12.4); Monocytes # 0.7 K/mcL (0.0-1.3); Monocytes % 5.5 %; Neutrophils # 11.3 K/mcL (1.6-8.9); Platelet Count 556 K/mcL (140-400); Red Blood Count 4.49 M/mcL (4.19-5.50); Red Cell Distribution Width 14.5 % (11.5-14.5); Segmented Neutrophils % 84.1 %; White Blood Count 13.4 K/mcL (4.3-11.1)
[2019-04-13 06:34] LABS: INR 1.2
[2019-04-13 06:54] LABS: Calcium 8.5 mg/dL (8.6-10.3); Potassium 6.1 mEq/L (3.5-5.1); Troponin I 0.04 ng/mL (< 0.04)
[2019-04-13 07:12] LABS: Bilirubin,Urine Negative (Negative); Blood,Urine Small (Negative); Clarity,Urine Clear (Clear); Color,Urine Yellow (Yellow); Glucose,Urine (UA) >=1000 mg/dL (Normal); Ketones,Urine 40 mg/dL (Negative); Leukocyte Esterase,Urine Negative (Negative); Nitrite,Urine Negative (Negative); Protein,Urine >=300 mg/dL (Neg-Trace); Specific Gravity,Urine 1.024 (1.010-1.025); Urobilinogen,Urine Normal (Normal)
[2019-04-13 07:14] LABS: Bacteria,Urine None Seen per hpf (None-Few); Hyaline Casts,Urine None Seen per lpf (None-Few); Squamous Epithelial Cell,Urine Many per lpf (None-Few); WBC,Urine 0-3 per hpf (0-3)
[2019-04-13] MEDS ORDERED: Insulin Regular, Human 100 UNIT/ML IV STA (07:22)
[2019-04-13] MEDS ORDERED: *HR* Dextrose 50 % in Water (Syg) 50 ML SYRINGE IVP PRN ×2 (07:22→09:25)
[2019-04-13] MEDS ORDERED: 0.9 % Sodium Chloride 500 ML IVC ONE (07:30)
[2019-04-13] MEDS ORDERED: Insulin Human Regular 100 UNIT in 0.9 % Sodium Chloride 100 ML IVC SCH ×2 (07:30→13:00)
[2019-04-13 08:50] LABS: Hepatitis B Surface Antibody 6.63 mIU/mL
[2019-04-13 09:00] LABS: Hepatitis B Surface Antigen Nonreactive (Nonreactive)
[2019-04-13] MEDS ORDERED: 0.9 % Sodium Chloride 250 ML IVC PRN (09:07)
[2019-04-13] MEDS ORDERED: 0.9 % Sodium Chloride 1,000 ML PRIME SCH (09:15)
[2019-04-13] MEDS ORDERED: D5% in 0.45% NACL w KCl 20 MEQ/1,000 ML MLS IVC PRN (09:25)
[2019-04-13] MEDS ORDERED: D5% in 0.45% NACL 1,000 ML IVC PRN (09:25)
[2019-04-13 09:34] LABS: ABG Base Excess -6 mEq/L (-2 to 3); ABG HCO3 18 mEq/L (21-27); ABG Oxygen Saturation 99 % (95-98); ABG PCO2 30 mmHg (35-45); ABG PH 7.39 pH Units (7.32-7.45); ABG PO2 114 mmHg (85-104); ABG TCO2 19 mEq/L (20-26)
[2019-04-13] MEDS ORDERED: Ipratropium/Albuterol Neb 3 ML IH PRN (10:02)
[2019-04-13 13:15] LABS: Calcium 8.2 mg/dL (8.6-10.3); Potassium 4.9 mEq/L (3.5-5.1)
[2019-04-13 13:43] LABS: Albumin 2.7 g/dL (3.5-5.7)
[2019-04-13 13:44] LABS: VBG HCO3 25 mEq/L (21-27); VBG PCO2 44 mmHg (41-51); VBG PH 7.37 pH Units (7.32-7.42); VBG PO2 174 mmHg (25-50)
[2019-04-13 17:26] LABS: VBG HCO3 27 mEq/L (21-27); VBG PCO2 39 mmHg (41-51); VBG PH 7.44 pH Units (7.32-7.42); VBG PO2 192 mmHg (25-50)
[2019-04-13] MEDS: Metoprolol XL (24 HR) Succ 50 MG TAB.ER.24H PO SCH (17:43)
[2019-04-13] MEDS ORDERED: 0.9 % Sodium Chloride 1,000 ML IVC SCH (17:45)
[2019-04-13] MEDS: gemfibroziL 600 MG TABLET PO SCH (17:49)
[2019-04-13] MEDS: Aspirin Enteric Coated 81 MG Tablet PO SCH (17:50)
[2019-04-13 17:54] LABS: Calcium 8.6 mg/dL (8.6-10.3); Potassium 3.6 mEq/L (3.5-5.1)
[2019-04-13] MEDS ORDERED: Warfarin perPT PO PRN (18:00)
[2019-04-13] MEDS ORDERED: *HR* Warfarin 10 MG TABLET PO ONE (18:00)
[2019-04-13] MEDS: hydrALAZINE 25 MG TABLET PO SCH (21:06)
[2019-04-13] MEDS ORDERED: Ondansetron 4 MG/2 ML VIAL IVP PRN (23:12)
[2019-04-13 23:41] LABS: Calcium 8.4 mg/dL (8.6-10.3); Potassium 3.3 mEq/L (3.5-5.1)
[2019-04-13 23:53] LABS: VBG HCO3 28 mEq/L (21-27); VBG PCO2 38 mmHg (41-51); VBG PH 7.48 pH Units (7.32-7.42); VBG PO2 208 mmHg (25-50)
[2019-04-14] MEDS ORDERED: Insulin DETEMIR 100 UNIT/ML X5UNITS SQ SCH (00:30)
[2019-04-14 01:55] LABS: INR 1.3; Prothrombin Time 14.7 Seconds (9.4-12.1)
[2019-04-14 02:15] LABS: Albumin 2.7 g/dL (3.5-5.7); Albumin/Globulin Ratio 0.6 (1.1-2.2); Bilirubin,Total 0.2 mg/dL (0.3-1.0); Calcium 8.8 mg/dL (8.6-10.3); Globulin 4.3 g/dL (2.4-3.5); Potassium 3.3 mEq/L (3.5-5.1)
[2019-04-14] MEDS ORDERED: Insulin LISPRO 300 UNITS/3 ML VIAL SQ SCH (07:30)
[2019-04-14] MEDS ORDERED: allopurinoL 100 MG TABLET PO SCH (09:00)
[2019-04-14] MEDS: Insulin LISPRO 300 UNITS/3 ML VIAL SQ SCH ×2 (09:37→11:30)
[2019-04-14] MEDS: hydrALAZINE 25 MG TABLET PO SCH (09:38)
[2019-04-14] MEDS: Metoprolol XL (24 HR) Succ 50 MG TAB.ER.24H PO SCH (09:38)
[2019-04-14] MEDS: gemfibroziL 600 MG TABLET PO SCH (09:39)
[2019-04-14] MEDS: Aspirin Enteric Coated 81 MG Tablet PO SCH (09:39)
[2019-04-14 09:58] LABS: Calcium 8.3 mg/dL (8.6-10.3)
[2019-04-14 10:24] LABS: Estimated Average Glucose 349 mg/dl
[2019-04-14 10:42] VITALS: BP 157/80
[2019-04-14] MEDS ORDERED: *HR* Warfarin 10 MG TABLET PO ONE (18:00)
== END 2019-04-14 13:00 | disposition home or self-care (01) ==
LOC: SUATTDRO → EMEROOARM 05:34 → 2NNU 05:34 → SUATTDRO 09:24 → 2NNU 12:30
PROVIDERS: ADMIT Internal Medicine; ATTEND Internal Medicine

== ENCOUNTER 2019-04-22 07:07 | Inpatient (IN) ==
[2019-04-22] MEDS ORDERED: Ondansetron 4 MG/2 ML VIAL IVP STA (07:26)
[2019-04-22 08:09] LABS: Basophils % 0.2 %; Lymphocytes % 5.7 %; Monocytes % 5.3 %
[2019-04-22 08:11] LABS: Basophils # 0.1 K/mcL (0.0-0.2); Eosinophils # 0.2 K/mcL (0.0-0.6); Eosinophils % 0.7 %; Hematocrit 36.8 % (37.5-50.1); Hemoglobin 11.9 g/dL (12.9-16.9); Mean Corpuscular HGB Conc 32.3 g/dL (31.6-35.5); Mean Corpuscular Hemoglobin 28.7 pg (28.0-33.3); Mean Corpuscular Volume 88.9 fL (83.0-100.0); Mean Platelet Volume 10.2 fL (9.4-12.4); Monocytes # 1.4 K/mcL (0.0-1.3); Neutrophils # 23.7 K/mcL (1.6-8.9); Platelet Count 372 K/mcL (140-400); Red Blood Count 4.14 M/mcL (4.19-5.50); Red Cell Distribution Width 14.2 % (11.5-14.5); Segmented Neutrophils % 87.1 %; White Blood Count 27.2 K/mcL (4.3-11.1)
[2019-04-22 08:14] LABS: Lymphocytes # 1.6 K/mcL (0.6-4.6)
[2019-04-22 08:17] LABS: Albumin 2.6 g/dL (3.5-5.7); Albumin/Globulin Ratio 0.7 (1.1-2.2); Bilirubin,Direct 0.2 mg/dL (0.0-0.2); Bilirubin,Indirect 0.1 mg/dL (0.0-1.0); Bilirubin,Total 0.3 mg/dL (0.3-1.0); Calcium 8.2 mg/dL (8.6-10.3); Globulin 3.7 g/dL (2.4-3.5); Potassium 4.1 mEq/L (3.5-5.1); Total Protein 6.3 g/dL (6.4-8.9)
[2019-04-22] MEDS ORDERED: Piperacillin/Tazobactam 3.375 GM in 0.9 % Sodium Chloride Mini Bag 100 ML IVPB ONE (08:29)
[2019-04-22 08:37] LABS: Hypersegmented Neutrophils Present (Not Present); Large Platelets Present (Not Present); Platelet Estimate Increased (Normal); Toxic Granulation Present (Not Present)
[2019-04-22 09:20] LABS: Bilirubin,Urine Negative (Negative); Blood,Urine Moderate (Negative); Clarity,Urine Clear (Clear); Color,Urine Yellow (Yellow); Glucose,Urine (UA) 250 mg/dL (Normal); Ketones,Urine Negative (Negative); Leukocyte Esterase,Urine Negative (Negative); Nitrite,Urine Negative (Negative); PH,Urine 6.5 pH Units (5.0-8.0); Protein,Urine >=1000 mg/dL (Neg-Trace); Specific Gravity,Urine 1.016 (1.010-1.025); Urobilinogen,Urine Normal (Normal)
[2019-04-22 09:21] LABS: Bacteria,Urine None Seen per hpf (None-Few); Hyaline Casts,Urine None Seen per lpf (None-Few); Squamous Epithelial Cell,Urine Many per lpf (None-Few)
[2019-04-22] MEDS ORDERED: Aspirin 325 MG TABLET PO ONE (09:43)
[2019-04-22 10:09] LABS: INR 1.4; Prothrombin Time 15.9 Seconds (9.4-12.1)
[2019-04-22] MEDS ORDERED: 0.9 % Sodium Chloride 250 ML IVC PRN (10:20)
[2019-04-22] MEDS ORDERED: Naloxone 0.4 MG/ML INJ IVP PRN (10:28)
[2019-04-22] MEDS ORDERED: Ondansetron 4 MG/2 ML VIAL IVP PRN (10:28)
[2019-04-22] MEDS ORDERED: 0.9 % Sodium Chloride 1,000 ML PRIME SCH (10:30)
[2019-04-22] MEDS ORDERED: Dextrose Gel 15 GM/37.5 ML TUBE PO PRN ×2 (10:34)
[2019-04-22] MEDS ORDERED: Ipratropium/Albuterol Neb 3 ML IH PRN (10:34)
[2019-04-22] MEDS ORDERED: D5% in Water 1,000 ML IVC PRN (10:34)
[2019-04-22] MEDS ORDERED: *HR* Dextrose 50 % in Water (Syg) 50 ML SYRINGE IVP PRN (10:34)
[2019-04-22] MEDS: Insulin LISPRO 300 UNITS/3 ML VIAL SQ SCH ×3 (17:08→21:03)
[2019-04-22] MEDS ORDERED: *HR* Warfarin 10 MG TABLET PO ONE (18:00)
[2019-04-22] MEDS ORDERED: Warfarin perPT PO PRN (18:00)
[2019-04-22] MEDS: Furosemide 40 MG TABLET PO SCH (18:25)
[2019-04-22] MEDS: Piperacillin/Tazobactam 3.375 GM in 0.9 % Sodium Chloride Mini Bag 100 ML IVPB SCH (18:26)
[2019-04-23] MEDS: Piperacillin/Tazobactam 3.375 GM in 0.9 % Sodium Chloride Mini Bag 100 ML IVPB SCH ×2 (05:31→17:44)
[2019-04-23] MEDS ORDERED: Acetaminophen 325 MG TABLET PO ONE (05:37)
[2019-04-23] MEDS ORDERED: Furosemide 40 MG TABLET PO ONE (08:37)
[2019-04-23] MEDS ORDERED: Aspirin 81 MG TAB.CHEW ONE (08:37)
[2019-04-23] MEDS ORDERED: Metoprolol XL (24 HR) Succ 50 MG TAB.ER.24H PO ONE ×2 (08:37)
[2019-04-23] MEDS ORDERED: hydrALAZINE 25 MG TABLET PO SCH (09:00)
[2019-04-23 14:33] LABS: INR 1.5; Prothrombin Time 16.5 Seconds (9.4-12.1)
[2019-04-23 14:35] LABS: Basophils # 0.1 K/mcL (0.0-0.2); Basophils % 0.4 %; Eosinophils # 0.4 K/mcL (0.0-0.6); Eosinophils % 2.2 %; Hematocrit 36.6 % (37.5-50.1); Hemoglobin 11.5 g/dL (12.9-16.9); Immature Granulocytes % 0.6 % (0-4); Lymphocytes # 1.3 K/mcL (0.6-4.6); Lymphocytes % 7.8 %; Mean Corpuscular HGB Conc 31.4 g/dL (31.6-35.5); Mean Corpuscular Volume 92.4 fL (83.0-100.0); Mean Platelet Volume 10.6 fL (9.4-12.4); Monocytes # 1.1 K/mcL (0.0-1.3); Monocytes % 6.5 %; Neutrophils # 14.1 K/mcL (1.6-8.9); Platelet Count 383 K/mcL (140-400); Red Blood Count 3.96 M/mcL (4.19-5.50); Red Cell Distribution Width 14.6 % (11.5-14.5); Segmented Neutrophils % 82.5 %
[2019-04-23] MEDS ORDERED: Doxycycline 100 MG CAPSULE PO ONE (14:53)
[2019-04-23] MEDS ORDERED: *HR* OxyCODONE/APAP 5/325 TABLET ONE (14:53)
[2019-04-23 16:09] LABS: White Blood Count 17.1 K/mcL (4.3-11.1)
[2019-04-23] MEDS: Furosemide 40 MG TABLET PO SCH ×2 (16:52→17:41)
[2019-04-23] MEDS: Insulin LISPRO 300 UNITS/3 ML VIAL SQ SCH ×3 (16:52→21:20)
[2019-04-23] MEDS: Aspirin 81 MG TAB.CHEW PO SCH (16:53)
[2019-04-23] MEDS: Metoprolol XL (24 HR) Succ 50 MG TAB.ER.24H PO SCH (16:53)
[2019-04-23] MEDS ORDERED: *HR* Warfarin 10 MG TABLET PO ONE (18:00)
[2019-04-23 18:15] LABS: Acinetobacter baumannii by PCR Not Detected (Not Detect); Candida albicans by PCR Not Detected (Not Detect); Candida glabrata by PCR Not Detected (Not Detect); Candida krusei by PCR Not Detected (Not Detect); Candida parapsilosis by PCR Not Detected (Not Detect); Candida tropicalis by PCR Not Detected (Not Detect); Enterobacter cloacae Cmplx PCR Not Detected (Not Detect); Enterobacteriaceae by PCR Not Detected (Not Detect); Enterococcus by PCR Not Detected (Not Detect); Escherichia coli by PCR Not Detected (Not Detect); Klebsiella oxytoca by PCR Not Detected (Not Detect); Klebsiella pneumoniae by PCR Not Detected (Not Detect); Proteus by PCR Not Detected (Not Detect); Pseudomonas aeruginosa by PCR Not Detected (Not Detect); Serratia marcescens by PCR Not Detected (Not Detect); Streptococcus agalactiae(B)PCR Not Detected (Not Detect); Streptococcus by PCR DETECTED (Not Detect); Streptococcus pneumoniae PCR Not Detected (Not Detect); Streptococcus pyogenes (A) PCR Not Detected (Not Detect)
[2019-04-23] MEDS ORDERED: Doxycycline 100 MG CAPSULE PO SCH (21:00)
[2019-04-23] MEDS: *HR* OxyCODONE/APAP 5/325 TABLET PO PRN (21:21)
[2019-04-23 23:55] LABS: Calcium 7.7 mg/dL (8.6-10.3); Potassium 4.6 mEq/L (3.5-5.1)
[2019-04-24] MEDS: Piperacillin/Tazobactam 3.375 GM in 0.9 % Sodium Chloride Mini Bag 100 ML IVPB SCH ×2 (06:32→16:56)
[2019-04-24 07:22] LABS: Hematocrit 37.2 % (37.5-50.1); Hemoglobin 11.2 g/dL (12.9-16.9); Mean Corpuscular HGB Conc 30.1 g/dL (31.6-35.5); Mean Corpuscular Hemoglobin 27.5 pg (28.0-33.3); Mean Corpuscular Volume 91.2 fL (83.0-100.0); Mean Platelet Volume 10.2 fL (9.4-12.4); Platelet Count 358 K/mcL (140-400); Red Blood Count 4.08 M/mcL (4.19-5.50); Red Cell Distribution Width 14.5 % (11.5-14.5)
[2019-04-24] MEDS: Folic Acid 1 MG TABLET PO SCH (08:33)
[2019-04-24] MEDS: hydrALAZINE 25 MG TABLET PO SCH (08:33)
[2019-04-24] MEDS: Furosemide 40 MG TABLET PO SCH ×2 (08:33→16:55)
[2019-04-24] MEDS: Calcium Acetate 667 MG CAPSULE PO SCH ×3 (08:33→16:55)
[2019-04-24] MEDS: Metoprolol XL (24 HR) Succ 50 MG TAB.ER.24H PO SCH (08:33)
[2019-04-24] MEDS: Aspirin 81 MG TAB.CHEW PO SCH (08:34)
[2019-04-24] MEDS: Insulin LISPRO 300 UNITS/3 ML VIAL SQ SCH ×5 (08:34→20:30)
[2019-04-24] MEDS: allopurinoL 100 MG TABLET PO SCH (08:34)
[2019-04-24] MEDS: *HR* OxyCODONE/APAP 5/325 TABLET PO PRN (08:46)
[2019-04-24] MEDS ORDERED: Vancomycin 500 MG in 0.9 % Sodium Chloride Mini Bag 100 ML IVPB ONE (09:00)
[2019-04-24 11:55] LABS: INR 1.5; Prothrombin Time 16.5 Seconds (9.4-12.1)
[2019-04-24 13:05] LABS: Staphylococcus aureus by PCR DETECTED (Not Detect)
[2019-04-24 13:06] LABS: mecA Methicillin-Resist Gene DETECTED (Not Detect)
[2019-04-24] MEDS ORDERED: *HR* Heparin 5,000 UNIT/ML VIAL IVP ONE (15:37)
[2019-04-24] MEDS ORDERED: *HR* Heparin 5,000 UNIT/ML VIAL IVP PRN (15:37)
[2019-04-24 16:45] LABS: Hematocrit 36.5 % (37.5-50.1); Hemoglobin 11.3 g/dL (12.9-16.9); Mean Corpuscular Hemoglobin 27.9 pg (28.0-33.3); Mean Corpuscular Volume 90.1 fL (83.0-100.0); Mean Platelet Volume 10.1 fL (9.4-12.4); Platelet Count 368 K/mcL (140-400); Red Blood Count 4.05 M/mcL (4.19-5.50); Red Cell Distribution Width 14.5 % (11.5-14.5); White Blood Count 11.4 K/mcL (4.3-11.1)
[2019-04-24] MEDS: Heparin 25,000 UNIT/250 ML D5W 25,000 UNIT/250 ML IV.SOLN IVC SCH (16:55)
[2019-04-24 16:56] LABS: INR 1.4
[2019-04-24 17:03] LABS: Calcium 7.7 mg/dL (8.6-10.3); Potassium 5.3 mEq/L (3.5-5.1)
[2019-04-24] MEDS ORDERED: *HR* Warfarin 5 MG TABLET PO ONE (18:00)
[2019-04-24] MEDS ORDERED: Insulin DETEMIR 100 UNIT/ML X5UNITS SQ SCH (21:00)
[2019-04-25 00:40] LABS: Heparin anti-factor XA UFH 0.25 IU/mL (0.30-0.70)
[2019-04-25] MEDS: *HR* OxyCODONE/APAP 5/325 TABLET PO PRN (00:49)
[2019-04-25] MEDS: *HR* Heparin 5,000 UNIT/ML VIAL IVP PRN ×2 (01:07→09:45)
[2019-04-25 01:28] LABS: Hematocrit 34.7 % (37.5-50.1); Hemoglobin 10.9 g/dL (12.9-16.9); Mean Corpuscular HGB Conc 31.4 g/dL (31.6-35.5); Mean Corpuscular Hemoglobin 28.2 pg (28.0-33.3); Mean Corpuscular Volume 89.7 fL (83.0-100.0); Mean Platelet Volume 10.5 fL (9.4-12.4); Platelet Count 341 K/mcL (140-400); Red Blood Count 3.87 M/mcL (4.19-5.50); Red Cell Distribution Width 14.5 % (11.5-14.5); White Blood Count 11.8 K/mcL (4.3-11.1)
[2019-04-25 01:35] LABS: Calcium 7.5 mg/dL (8.6-10.3); Potassium 4.8 mEq/L (3.5-5.1)
[2019-04-25 04:45] LABS: INR 1.5; Prothrombin Time 17.1 Seconds (9.4-12.1)
[2019-04-25] MEDS: Heparin 25,000 UNIT/250 ML D5W 25,000 UNIT/250 ML IV.SOLN IVC SCH ×2 (06:58→15:59)
[2019-04-25] MEDS: Piperacillin/Tazobactam 3.375 GM in 0.9 % Sodium Chloride Mini Bag 100 ML IVPB SCH (06:59)
[2019-04-25] MEDS ORDERED: 0.9 % Sodium Chloride 250 ML IVC PRN (08:04)
[2019-04-25] MEDS: Insulin LISPRO 300 UNITS/3 ML VIAL SQ SCH ×4 (08:32→13:13)
[2019-04-25] MEDS: Calcium Acetate 667 MG CAPSULE PO SCH ×2 (08:33→13:13)
[2019-04-25] MEDS: hydrALAZINE 25 MG TABLET PO SCH (08:33)
[2019-04-25] MEDS: Furosemide 40 MG TABLET PO SCH (08:33)
[2019-04-25] MEDS: Aspirin 81 MG TAB.CHEW PO SCH (09:33)
[2019-04-25] MEDS: Folic Acid 1 MG TABLET PO SCH (09:41)
[2019-04-25] MEDS: allopurinoL 100 MG TABLET PO SCH (09:41)
[2019-04-25] MEDS ORDERED: Vancomycin 500 MG in 0.9 % Sodium Chloride Mini Bag 100 ML IVPB ONE (14:00)
[2019-04-25] MEDS: Metoprolol XL (24 HR) Succ 50 MG TAB.ER.24H PO SCH (14:51)
[2019-04-25 15:03] VITALS: BP 155/71
[2019-04-25] MEDS ORDERED: Aminoglycoside Consult 1 EACH MC ONE (16:06)
[2019-04-25] MEDS ORDERED: Vancomycin 1,000 MG, 0.9 % Sodium Chloride 1,000 ML IR ONE (17:30)
== END 2019-04-25 16:07 | disposition short-term general hospital (02) | DRG 344 ==
LOC: EMEROOARM 07:07 → 2ANU 07:07 → SUATTDRO 10:28 → 2ANU 12:59
PROVIDERS: ADMIT Internal Medicine; ATTEND Family Medicine

== ENCOUNTER 2019-08-30 13:13 | Observation (INO) ==
[2019-08-30] MEDS ORDERED: 0.9 % Sodium Chloride 1,000 ML IVC SCH (13:30)
[2019-08-30] MEDS ORDERED: Morphine Sulfate 2 MG/ML SYRINGE IVP STA (14:14)
[2019-08-30] MEDS ORDERED: *HR* Promethazine 25 MG/ML VIAL IVP STA (14:15)
[2019-08-30 14:22] LABS: Basophils # 0.1 K/mcL (0.0-0.2); Basophils % 0.5 %; Eosinophils # 0.5 K/mcL (0.0-0.6); Eosinophils % 4.5 %; Hematocrit 34.5 % (37.5-50.1); Hemoglobin 10.4 g/dL (12.9-16.9); Immature Granulocytes % 0.6 % (0-4); Lymphocytes # 1.6 K/mcL (0.6-4.6); Lymphocytes % 14.6 %; Mean Corpuscular HGB Conc 30.1 g/dL (31.6-35.5); Mean Corpuscular Hemoglobin 26.9 pg (28.0-33.3); Mean Corpuscular Volume 89.4 fL (83.0-100.0); Mean Platelet Volume 10.1 fL (9.4-12.4); Monocytes # 1.1 K/mcL (0.0-1.3); Monocytes % 9.5 %; Neutrophils # 7.8 K/mcL (1.6-8.9); Platelet Count 640 K/mcL (140-400); Red Blood Count 3.86 M/mcL (4.19-5.50); Red Cell Distribution Width 15.1 % (11.5-14.5); Segmented Neutrophils % 70.3 %; White Blood Count 11.2 K/mcL (4.3-11.1)
[2019-08-30 14:28] LABS: VBG HCO3 28 mEq/L (21-27); VBG PCO2 51 mmHg (41-51); VBG PH 7.34 pH Units (7.32-7.42); VBG PO2 71 mmHg (25-50)
[2019-08-30 14:35] LABS: INR 1.2; Prothrombin Time 13.4 Seconds (9.4-12.1)
[2019-08-30 14:59] LABS: Albumin 2.5 g/dL (3.5-5.7); Albumin/Globulin Ratio 0.7 (1.1-2.2); Bilirubin,Indirect 0.2 mg/dL (0.0-1.0); Bilirubin,Total 0.2 mg/dL (0.3-1.0); Calcium 7.6 mg/dL (8.6-10.3); Globulin 3.5 g/dL (2.4-3.5); Magnesium 1.6 mg/dL (1.6-2.6); Phosphorous 3.5 mg/dL (2.7-4.5); Potassium 3.7 mEq/L (3.5-5.1); Troponin I 0.06 ng/mL (< 0.04)
[2019-08-30] MEDS ORDERED: Insulin Regular, Human 100 UNIT/ML SQ ONE (16:57)
[2019-08-30] MEDS ORDERED: *HR* Heparin 5,000 UNIT/ML VIAL IVP PRN ×2 (17:05)
[2019-08-30] MEDS ORDERED: *HR* Heparin 5,000 UNIT/ML VIAL IVP ONE (17:05)
[2019-08-30] MEDS ORDERED: Heparin 25,000 UNIT/250 ML D5W 25,000 UNIT/250 ML IV.SOLN IVC SCH (17:15)
[2019-08-30] MEDS ORDERED: Naloxone 0.4 MG/ML INJ IVP PRN (17:30)
[2019-08-30] MEDS ORDERED: Ondansetron 4 MG/2 ML VIAL IVP PRN (17:30)
[2019-08-30 17:36] LABS: Bilirubin,Urine Negative (Negative); Blood,Urine Trace (Negative); Clarity,Urine Clear (Clear); Color,Urine Light-Yellow (Yellow); Glucose,Urine (UA) >=1000 mg/dL (Normal); Ketones,Urine Trace mg/dL (Negative); Leukocyte Esterase,Urine Negative (Negative); Mucus,Urine Few per lpf (None-Few); Nitrite,Urine Negative (Negative); Protein,Urine >=600 mg/dL (Neg-Trace); RBC,Urine 0-3 per hpf (0-3); Specific Gravity,Urine 1.016 (1.010-1.025); Urobilinogen,Urine Normal (Normal)
[2019-08-30] MEDS ORDERED: *HR* Dextrose 50 % in Water (Vial) 50 ML VIAL IVP PRN (17:49)
[2019-08-30] MEDS ORDERED: Dextrose Gel 15 GM/37.5 ML TUBE PO PRN ×2 (17:49)
[2019-08-30] MEDS ORDERED: D5% in Water 1,000 ML IVC PRN (17:49)
[2019-08-30] MEDS ORDERED: Perflutren Lipid Microsphere 1.3 ML in 0.9 % Sodium Chloride 8.7 ML IVP PRN (17:50)
[2019-08-30] MEDS ORDERED: Ipratropium/Albuterol Neb 3 ML IH PRN (17:54)
[2019-08-30] MEDS: Furosemide 40 MG TABLET PO SCH (21:28)
[2019-08-30] MEDS: Insulin LISPRO 300 UNITS/3 ML VIAL SQ SCH (21:29)
[2019-08-30] MEDS: Insulin DETEMIR 100 UNIT/ML X5UNITS SQ SCH (21:29)
[2019-08-30] MEDS ORDERED: Acetaminophen 325 MG TABLET PO PRN (22:00)
[2019-08-31] MEDS ORDERED: *HR* Labetalol 20 MG/4 ML SYRINGE IVP PRN (00:23)
[2019-08-31 01:04] LABS: Basophils # 0.1 K/mcL (0.0-0.2); Basophils % 0.5 %; Eosinophils # 0.8 K/mcL (0.0-0.6); Eosinophils % 6.1 %; Hematocrit 34.2 % (37.5-50.1); Hemoglobin 10.6 g/dL (12.9-16.9); Immature Granulocytes % 1.4 % (0-4); Lymphocytes # 2.1 K/mcL (0.6-4.6); Lymphocytes % 17.2 %; Mean Corpuscular Hemoglobin 27.1 pg (28.0-33.3); Mean Corpuscular Volume 87.5 fL (83.0-100.0); Mean Platelet Volume 10.6 fL (9.4-12.4); Monocytes # 1.2 K/mcL (0.0-1.3); Monocytes % 9.3 %; Neutrophils # 8.1 K/mcL (1.6-8.9); Nucleated Red Blood Cells 0.2 /100 WBC (0); Platelet Count 532 K/mcL (140-400); Red Blood Count 3.91 M/mcL (4.19-5.50); Red Cell Distribution Width 15.1 % (11.5-14.5); Segmented Neutrophils % 65.5 %; White Blood Count 12.4 K/mcL (4.3-11.1)
[2019-08-31 01:22] LABS: Calcium 7.5 mg/dL (8.6-10.3); Magnesium 1.4 mg/dL (1.6-2.6); Phosphorous 3.2 mg/dL (2.7-4.5); Potassium 3.3 mEq/L (3.5-5.1)
[2019-08-31] MEDS ORDERED: Heparin 25,000 UNIT/250 ML D5W 25,000 UNIT/250 ML IV.SOLN IVC SCH (02:00)
[2019-08-31] MEDS ORDERED: Magnesium Sulfate 1 GM/102 ML PIGGYBACK IVPB ONE (06:12)
[2019-08-31] MEDS: Calcium Acetate 667 MG CAPSULE PO SCH ×3 (08:16→17:51)
[2019-08-31] MEDS: Aspirin Enteric Coated 81 MG Tablet PO SCH (08:17)
[2019-08-31] MEDS: Furosemide 40 MG TABLET PO SCH ×2 (08:17→17:51)
[2019-08-31] MEDS: Folic Acid 1 MG TABLET PO SCH (08:17)
[2019-08-31] MEDS: allopurinoL 100 MG TABLET PO SCH (08:17)
[2019-08-31] MEDS: gemfibroziL 600 MG TABLET PO SCH ×2 (08:17→17:51)
[2019-08-31] MEDS: Insulin LISPRO 300 UNITS/3 ML VIAL SQ SCH ×4 (08:17→21:41)
[2019-08-31] MEDS: Insulin DETEMIR 100 UNIT/ML X5UNITS SQ SCH ×2 (08:17→21:46)
[2019-08-31] MEDS ORDERED: 0.9 % Sodium Chloride 250 ML IVC PRN (09:17)
[2019-08-31] MEDS ORDERED: 0.9 % Sodium Chloride 1,000 ML PRIME SCH (09:30)
[2019-08-31] MEDS: Metoprolol XL (24 HR) Succ 50 MG TAB.ER.24H PO SCH (12:50)
[2019-08-31] MEDS: amLODIPine 5 MG TABLET PO SCH (12:50)
[2019-08-31] MEDS: *HR* Heparin 5,000 UNIT/ML VIAL SQ SCH (17:51)
[2019-08-31] MEDS ORDERED: Warfarin perPT PO SCH (18:00)
[2019-08-31] MEDS ORDERED: *HR* Warfarin 5 MG TABLET PO SCH (18:00)
[2019-08-31] MEDS ORDERED: Morphine Sulfate 2 MG/ML SYRINGE IVP ONE (23:22)
[2019-09-01 02:07] LABS: Hematocrit 35.2 % (37.5-50.1); Hemoglobin 10.6 g/dL (12.9-16.9); Mean Corpuscular HGB Conc 30.1 g/dL (31.6-35.5); Mean Corpuscular Volume 89.6 fL (83.0-100.0); Mean Platelet Volume 10.5 fL (9.4-12.4); Platelet Count 597 K/mcL (140-400); Red Blood Count 3.93 M/mcL (4.19-5.50); Red Cell Distribution Width 15.1 % (11.5-14.5); White Blood Count 9.4 K/mcL (4.3-11.1)
[2019-09-01 02:11] LABS: INR 1.3; Prothrombin Time 14.2 Seconds (9.4-12.1)
[2019-09-01 02:27] LABS: Calcium 7.6 mg/dL (8.6-10.3); Potassium 4.1 mEq/L (3.5-5.1)
[2019-09-01] MEDS: *HR* Heparin 5,000 UNIT/ML VIAL SQ SCH (05:40)
[2019-09-01] MEDS: Metoprolol XL (24 HR) Succ 50 MG TAB.ER.24H PO SCH (08:42)
[2019-09-01] MEDS: Aspirin Enteric Coated 81 MG Tablet PO SCH (08:42)
[2019-09-01] MEDS: gemfibroziL 600 MG TABLET PO SCH (08:42)
[2019-09-01] MEDS: Calcium Acetate 667 MG CAPSULE PO SCH ×2 (08:43→13:09)
[2019-09-01] MEDS: allopurinoL 100 MG TABLET PO SCH (08:43)
[2019-09-01] MEDS: Folic Acid 1 MG TABLET PO SCH (08:43)
[2019-09-01] MEDS: Insulin LISPRO 300 UNITS/3 ML VIAL SQ SCH ×2 (08:43→13:09)
[2019-09-01] MEDS: Furosemide 40 MG TABLET PO SCH (08:43)
[2019-09-01] MEDS: amLODIPine 5 MG TABLET PO SCH (08:43)
[2019-09-01] MEDS: Insulin DETEMIR 100 UNIT/ML X5UNITS SQ SCH (08:44)
[2019-09-01 11:39] VITALS: BP 135/70
== END 2019-09-01 14:39 | disposition home or self-care (01) ==
LOC: EMEROOARM 13:13 → 2ANU 13:13 → SUATTDRO 17:24 → 2ANU 18:42
PROVIDERS: ADMIT Internal Medicine; ATTEND Internal Medicine

== ENCOUNTER 2019-10-12 02:43 | Observation (INO) ==
[2019-10-12] MEDS ORDERED: Ondansetron ODT 4 MG TAB.RAPDIS SL ONE (03:34)
[2019-10-12 04:56] LABS: Basophils # 0.1 K/mcL (0.0-0.2); Basophils % 0.6 %; Eosinophils # 0.5 K/mcL (0.0-0.6); Eosinophils % 2.3 %; Hematocrit 30.7 % (37.5-50.1); Hemoglobin 9.1 g/dL (12.9-16.9); Immature Granulocytes % 0.7 % (0-4); Lymphocytes # 2.6 K/mcL (0.6-4.6); Lymphocytes % 11.7 %; Mean Corpuscular HGB Conc 29.6 g/dL (31.6-35.5); Mean Corpuscular Hemoglobin 26.5 pg (28.0-33.3); Mean Corpuscular Volume 89.5 fL (83.0-100.0); Mean Platelet Volume 11.6 fL (9.4-12.4); Monocytes % 9.3 %; Neutrophils # 16.5 K/mcL (1.6-8.9); Nucleated Red Blood Cells 0.2 /100 WBC (0); Platelet Count 1144 K/mcL (140-400); Red Blood Count 3.43 M/mcL (4.19-5.50); Red Cell Distribution Width 16.5 % (11.5-14.5); Segmented Neutrophils % 75.4 %; White Blood Count 21.9 K/mcL (4.3-11.1)
[2019-10-12 05:21] LABS: Albumin 2.4 g/dL (3.5-5.7); Albumin/Globulin Ratio 0.8 (1.1-2.2); Bilirubin,Total 0.2 mg/dL (0.3-1.0); Calcium 7.8 mg/dL (8.6-10.3); Globulin 2.9 g/dL (2.4-3.5); Potassium 4.3 mEq/L (3.5-5.1); Total Protein 5.3 g/dL (6.4-8.9)
[2019-10-12 06:41] LABS: Bilirubin,Urine Negative (Negative); Blood,Urine Negative (Negative); Clarity,Urine Clear (Clear); Color,Urine Light-Yellow (Yellow); Glucose,Urine (UA) >=1000 mg/dL (Normal); Ketones,Urine 10 mg/dL (Negative); Leukocyte Esterase,Urine Negative (Negative); Mucus,Urine Few per lpf (None-Few); Nitrite,Urine Negative (Negative); Protein,Urine >=600 mg/dL (Neg-Trace); RBC,Urine 0-3 per hpf (0-3); Specific Gravity,Urine 1.021 (1.010-1.025); Urobilinogen,Urine Normal (Normal)
[2019-10-12] MEDS ORDERED: *HR* Promethazine 25 MG/ML VIAL IVP PRN (14:15)
[2019-10-12] MEDS ORDERED: Naloxone 0.4 MG/ML INJ IVP PRN (14:15)
[2019-10-12] MEDS ORDERED: D5% in Water 1,000 ML IVC PRN (14:18)
[2019-10-12] MEDS ORDERED: *HR* Dextrose 50 % in Water (Vial) 50 ML VIAL IVP PRN (14:18)
[2019-10-12] MEDS ORDERED: Dextrose Gel 15 GM/37.5 ML TUBE PO PRN ×2 (14:18)
[2019-10-12] MEDS ORDERED: Vancomycin 1 EACH in 0.9 % Sodium Chloride 250 ML IVPB SCH (16:00)
[2019-10-12] MEDS ORDERED: 0.9 % Sodium Chloride 250 ML IVC PRN (16:04)
[2019-10-12] MEDS ORDERED: 0.9 % Sodium Chloride 1,000 ML PRIME SCH (16:15)
[2019-10-12] MEDS ORDERED: Piperacillin/Tazobactam 3.375 GM in 0.9 % Sodium Chloride Mini Bag 100 ML IVPB SCH (18:00)
[2019-10-12] MEDS: Insulin LISPRO 300 UNITS/3 ML VIAL SQ SCH ×2 (18:43→19:19)
[2019-10-12] MEDS ORDERED: Vancomycin 1,750 MG/517.5 ML IV.SOLN IVPB ONE (20:00)
[2019-10-12] MEDS ORDERED: Insulin DETEMIR 100 UNIT/ML X5UNITS SQ SCH (21:00)
[2019-10-12 21:05] VITALS: BP 158/78
[2019-10-13 18:51] LABS: Acinetobacter baumannii by PCR Not Detected (Not Detect); Candida albicans by PCR Not Detected (Not Detect); Candida glabrata by PCR Not Detected (Not Detect); Candida krusei by PCR Not Detected (Not Detect); Candida parapsilosis by PCR Not Detected (Not Detect); Candida tropicalis by PCR Not Detected (Not Detect); Enterobacter cloacae Cmplx PCR Not Detected (Not Detect); Enterobacteriaceae by PCR Not Detected (Not Detect); Enterococcus by PCR Not Detected (Not Detect); Escherichia coli by PCR Not Detected (Not Detect); Klebsiella oxytoca by PCR Not Detected (Not Detect); Klebsiella pneumoniae by PCR Not Detected (Not Detect); Proteus by PCR Not Detected (Not Detect); Pseudomonas aeruginosa by PCR Not Detected (Not Detect); Serratia marcescens by PCR Not Detected (Not Detect); Staphylococcus aureus by PCR DETECTED (Not Detect); Staphylococcus by PCR Not Detected (Not Detect); Streptococcus agalactiae(B)PCR Not Detected (Not Detect); Streptococcus by PCR Not Detected (Not Detect); Streptococcus pneumoniae PCR Not Detected (Not Detect); Streptococcus pyogenes (A) PCR Not Detected (Not Detect); blaKPC Carbapenem-Resist Gene Not Detected (Not Detect); mecA Methicillin-Resist Gene DETECTED (Not Detect); vanA/B Vancomycin-Resist Genes Not Detected (Not Detect)
== END 2019-10-12 23:24 | disposition short-term general hospital (02) ==
LOC: 3ANU 02:43 → EMEROOARM 02:43 → SUATTDRO 14:25 → 3ANU 15:36
PROVIDERS: ADMIT Internal Medicine; ATTEND Internal Medicine

== ENCOUNTER 2019-11-04 07:34 | Inpatient (IN) ==
[2019-11-04] MEDS ORDERED: *HR* HYDROcodone/Acet 5/325 mg TABLET PO ONE (08:47)
[2019-11-04 08:48] LABS: Basophils # 0.1 K/mcL (0.0-0.2); Basophils % 0.6 %; Eosinophils # 1.3 K/mcL (0.0-0.6); Eosinophils % 5.5 %; Hematocrit 37.9 % (37.5-50.1); Hemoglobin 11.2 g/dL (12.9-16.9); Immature Granulocytes % 0.5 % (0-4); Lymphocytes # 2.2 K/mcL (0.6-4.6); Lymphocytes % 9.7 %; Mean Corpuscular HGB Conc 29.6 g/dL (31.6-35.5); Mean Corpuscular Hemoglobin 25.6 pg (28.0-33.3); Mean Corpuscular Volume 86.7 fL (83.0-100.0); Mean Platelet Volume 10.7 fL (9.4-12.4); Monocytes # 2.6 K/mcL (0.0-1.3); Monocytes % 11.2 %; Neutrophils # 16.7 K/mcL (1.6-8.9); Nucleated Red Blood Cells 0.2 /100 WBC (0); Platelet Count 1004 K/mcL (140-400); Red Blood Count 4.37 M/mcL (4.19-5.50); Red Cell Distribution Width 16.6 % (11.5-14.5); Segmented Neutrophils % 72.5 %
[2019-11-04] MEDS ORDERED: Ondansetron ODT 4 MG TAB.RAPDIS SL ONE (08:55)
[2019-11-04 09:10] LABS: INR 2.5; Prothrombin Time 28.3 Seconds (9.4-12.1)
[2019-11-04] MEDS ORDERED: Vancomycin 1,750 MG/517.5 ML IV.SOLN IVPB STA (09:43)
[2019-11-04] MEDS ORDERED: Piperacillin/Tazobactam 3.375 GM in 0.9 % Sodium Chloride Mini Bag 100 ML IVPB ONE (09:43)
[2019-11-04 10:26] LABS: Alanine Aminotransferase 4 Units/L (7-52); Albumin 2.8 g/dL (3.5-5.7); Albumin/Globulin Ratio 0.8 (1.1-2.2); Alkaline Phosphatase 106 Units/L (34-104); Amylase < 10 Units/L (29-103); Aspartate Amino Transferase 11 Units/L (13-39); BUN/Creatinine Ratio 9 (6-26); Bilirubin,Indirect 0.2 mg/dL (0.0-1.0); Bilirubin,Total 0.2 mg/dL (0.3-1.0); Blood Urea Nitrogen 48 mg/dL (8-23); Calcium 8.5 mg/dL (8.6-10.3); Carbon Dioxide 26 mEq/L (23-29); Chloride 98 mEq/L (98-107); Globulin 3.4 g/dL (2.4-3.5); Glucose 89 mg/dL (70-105); Lipase 9 Units/L (11-82); Osmolality,Calculated 290 (280-300); Potassium 5.1 mEq/L (3.5-5.1); Sodium 134 mEq/L (136-145); Total Protein 6.2 g/dL (6.4-8.9); Troponin I < 0.03 ng/mL (< 0.04); eGFR For African Americans 14 (> 60); eGFR For Non-African Americans 11 (> 60)
[2019-11-04] MEDS ORDERED: Naloxone 0.4 MG/ML INJ IVP PRN (10:42)
[2019-11-04] MEDS ORDERED: *HR* Dextrose 50 % in Water (Vial) 50 ML VIAL IVP PRN (10:46)
[2019-11-04] MEDS ORDERED: Dextrose Gel 15 GM/37.5 ML TUBE PO PRN ×2 (10:46)
[2019-11-04] MEDS ORDERED: D5% in Water 1,000 ML IVC PRN (10:46)
[2019-11-04] MEDS ORDERED: Vancomycin 1 EACH in 0.9 % Sodium Chloride 250 ML IVPB SCH (11:00)
[2019-11-04 11:09] LABS: Bacteria,Urine Few per hpf (None-Few); Bilirubin,Urine Negative (Negative); Blood,Urine Trace (Negative); Clarity,Urine Clear (Clear); Color,Urine Colorless (Yellow); Glucose,Urine (UA) 50 mg/dL (Normal); Ketones,Urine Negative (Negative); Leukocyte Esterase,Urine Negative (Negative); Nitrite,Urine Negative (Negative); PH,Urine 7.5 pH Units (5.0-8.0); Protein,Urine >=300 mg/dL (Neg-Trace); RBC,Urine 0-3 per hpf (0-3); Specific Gravity,Urine 1.013 (1.010-1.025); Urobilinogen,Urine Normal (Normal)
[2019-11-04] MEDS: *HR* OxyCODONE Immed Rel 5 MG TABLET PO PRN ×2 (13:20→17:56)
[2019-11-04] MEDS: Insulin LISPRO 300 UNITS/3 ML VIAL SQ SCH ×3 (13:27→21:02)
[2019-11-04] MEDS ORDERED: 0.9 % Sodium Chloride 250 ML IVC PRN (14:21)
[2019-11-04] MEDS ORDERED: 0.9 % Sodium Chloride 1,000 ML PRIME SCH (14:30)
[2019-11-04 14:46] LABS: Hepatitis B Surface Antigen Nonreactive (Nonreactive)
[2019-11-04 15:14] LABS: Hepatitis C Virus Antibody Nonreactive (Nonreactive)
[2019-11-04] MEDS: Acetaminophen 325 MG TABLET PO PRN (16:06)
[2019-11-04] MEDS: Piperacillin/Tazobactam 3.375 GM in 0.9 % Sodium Chloride Mini Bag 100 ML IVPB SCH (17:57)
[2019-11-04] MEDS ORDERED: Ipratropium/Albuterol Neb 3 ML IH PRN (19:55)
[2019-11-05] MEDS: *HR* OxyCODONE Immed Rel 5 MG TABLET PO PRN ×5 (01:35→21:42)
[2019-11-05] MEDS: Piperacillin/Tazobactam 3.375 GM in 0.9 % Sodium Chloride Mini Bag 100 ML IVPB SCH ×2 (05:39→17:35)
[2019-11-05 08:05] LABS: Basophils # 0.1 K/mcL (0.0-0.2); Basophils % 0.5 %; Eosinophils # 0.9 K/mcL (0.0-0.6); Eosinophils % 5.8 %; Hematocrit 34.2 % (37.5-50.1); Hemoglobin 10.1 g/dL (12.9-16.9); Immature Granulocytes % 0.5 % (0-4); Lymphocytes # 1.7 K/mcL (0.6-4.6); Lymphocytes % 10.8 %; Mean Corpuscular HGB Conc 29.5 g/dL (31.6-35.5); Mean Corpuscular Hemoglobin 25.6 pg (28.0-33.3); Mean Corpuscular Volume 86.6 fL (83.0-100.0); Mean Platelet Volume 10.8 fL (9.4-12.4); Monocytes # 1.9 K/mcL (0.0-1.3); Monocytes % 11.9 %; Neutrophils # 11.3 K/mcL (1.6-8.9); Nucleated Red Blood Cells 0.1 /100 WBC (0); Platelet Count 896 K/mcL (140-400); Red Blood Count 3.95 M/mcL (4.19-5.50); Red Cell Distribution Width 16.5 % (11.5-14.5); Segmented Neutrophils % 70.5 %
[2019-11-05 08:12] LABS: INR 2.8; Prothrombin Time 31.7 Seconds (9.4-12.1)
[2019-11-05 08:23] LABS: Calcium 7.9 mg/dL (8.6-10.3); Magnesium 1.8 mg/dL (1.6-2.6); Phosphorous 4.7 mg/dL (2.7-4.5); Potassium 4.6 mEq/L (3.5-5.1)
[2019-11-05 08:36] LABS: Thyroid Stimulating Hormone 17.217 mcIU/mL (0.340-5.600)
[2019-11-05] MEDS: Insulin LISPRO 300 UNITS/3 ML VIAL SQ SCH ×4 (09:27→21:37)
[2019-11-05] MEDS: Metoprolol XL (24 HR) Succ 50 MG TAB.ER.24H PO SCH (09:39)
[2019-11-05] MEDS: Renal Vitamin 1 CAP CAPSULE PO SCH (09:39)
[2019-11-05] MEDS: Furosemide 40 MG TABLET PO SCH ×2 (09:39→17:35)
[2019-11-05] MEDS: Aspirin Enteric Coated 81 MG Tablet PO SCH (09:39)
[2019-11-05] MEDS: allopurinoL 100 MG TABLET PO SCH (09:39)
[2019-11-05] MEDS: Folic Acid 1 MG TABLET PO SCH (09:40)
[2019-11-05] MEDS: Calcium Acetate 667 MG CAPSULE PO SCH ×3 (09:47→17:35)
[2019-11-05] MEDS: Ondansetron 4 MG/2 ML VIAL IVP PRN ×2 (12:58→21:42)
[2019-11-06] MEDS: Acetaminophen 325 MG TABLET PO PRN ×3 (00:29→16:40)
[2019-11-06] MEDS: *HR* OxyCODONE Immed Rel 5 MG TABLET PO PRN ×5 (04:10→20:56)
[2019-11-06] MEDS: Piperacillin/Tazobactam 3.375 GM in 0.9 % Sodium Chloride Mini Bag 100 ML IVPB SCH ×2 (05:48→16:39)
[2019-11-06 06:11] LABS: Basophils % 0.5 %; Immature Granulocytes % 0.6 % (0-4); Segmented Neutrophils % 74.8 %
[2019-11-06 06:13] LABS: Basophils # 0.1 K/mcL (0.0-0.2); Eosinophils # 0.7 K/mcL (0.0-0.6); Eosinophils % 3.2 %; Hematocrit 37.6 % (37.5-50.1); Hemoglobin 11.1 g/dL (12.9-16.9); Lymphocytes # 2.5 K/mcL (0.6-4.6); Lymphocytes % 11.5 %; Mean Corpuscular HGB Conc 29.5 g/dL (31.6-35.5); Mean Corpuscular Hemoglobin 26.4 pg (28.0-33.3); Mean Corpuscular Volume 89.3 fL (83.0-100.0); Mean Platelet Volume 10.8 fL (9.4-12.4); Monocytes # 2.1 K/mcL (0.0-1.3); Monocytes % 9.4 %; Neutrophils # 16.5 K/mcL (1.6-8.9); Nucleated Red Blood Cells 0.2 /100 WBC (0); Platelet Count 966 K/mcL (140-400); Red Blood Count 4.21 M/mcL (4.19-5.50); Red Cell Distribution Width 17.1 % (11.5-14.5)
[2019-11-06 06:24] LABS: INR 1.8; Prothrombin Time 20.1 Seconds (9.4-12.1)
[2019-11-06 06:26] LABS: Calcium 8.2 mg/dL (8.6-10.3); Potassium 5.3 mEq/L (3.5-5.1)
[2019-11-06 06:29] LABS: Estimated Average Glucose 166 mg/dl
[2019-11-06 06:32] LABS: Hypochromasia Present (Not Present); Platelet Estimate Marked Increase (Normal)
[2019-11-06] MEDS: Aspirin Enteric Coated 81 MG Tablet PO SCH (08:22)
[2019-11-06] MEDS: allopurinoL 100 MG TABLET PO SCH (08:22)
[2019-11-06] MEDS: Renal Vitamin 1 CAP CAPSULE PO SCH (08:22)
[2019-11-06] MEDS: Calcium Acetate 667 MG CAPSULE PO SCH ×3 (08:22→16:40)
[2019-11-06] MEDS: Furosemide 40 MG TABLET PO SCH ×2 (08:22→16:40)
[2019-11-06] MEDS: Folic Acid 1 MG TABLET PO SCH (08:23)
[2019-11-06] MEDS: Metoprolol XL (24 HR) Succ 50 MG TAB.ER.24H PO SCH (08:23)
[2019-11-06] MEDS: Insulin LISPRO 300 UNITS/3 ML VIAL SQ SCH ×4 (08:24→20:55)
[2019-11-06] MEDS: hydrALAZINE 25 MG TABLET PO SCH (12:19)
[2019-11-07] MEDS: *HR* OxyCODONE Immed Rel 5 MG TABLET PO PRN ×3 (05:22→19:51)
[2019-11-07] MEDS: Piperacillin/Tazobactam 3.375 GM in 0.9 % Sodium Chloride Mini Bag 100 ML IVPB SCH ×2 (05:23→16:53)
[2019-11-07 05:50] LABS: Basophils # 0.1 K/mcL (0.0-0.2); Basophils % 0.5 %; Eosinophils # 0.8 K/mcL (0.0-0.6); Eosinophils % 3.8 %; Hematocrit 35.7 % (37.5-50.1); Hemoglobin 10.4 g/dL (12.9-16.9); Immature Granulocytes % 0.6 % (0-4); Lymphocytes # 2.4 K/mcL (0.6-4.6); Lymphocytes % 11.1 %; Mean Corpuscular HGB Conc 29.1 g/dL (31.6-35.5); Mean Corpuscular Hemoglobin 25.6 pg (28.0-33.3); Mean Corpuscular Volume 87.9 fL (83.0-100.0); Mean Platelet Volume 10.7 fL (9.4-12.4); Monocytes # 2.4 K/mcL (0.0-1.3); Monocytes % 10.9 %; Nucleated Red Blood Cells 0.2 /100 WBC (0); Platelet Count 955 K/mcL (140-400); Red Blood Count 4.06 M/mcL (4.19-5.50); Red Cell Distribution Width 16.8 % (11.5-14.5); Segmented Neutrophils % 73.1 %; White Blood Count 21.9 K/mcL (4.3-11.1)
[2019-11-07 06:05] LABS: Albumin 2.5 g/dL (3.5-5.7); Calcium 8.3 mg/dL (8.6-10.3); Phosphorous 5.7 mg/dL (2.7-4.5); Potassium 5.4 mEq/L (3.5-5.1)
[2019-11-07 06:10] LABS: Hypochromasia Present (Not Present); Large Platelets Present (Not Present); Platelet Estimate Marked Increase (Normal)
[2019-11-07] MEDS ORDERED: 0.9 % Sodium Chloride 250 ML IVC PRN (08:36)
[2019-11-07] MEDS: Insulin LISPRO 300 UNITS/3 ML VIAL SQ SCH ×4 (08:52→20:30)
[2019-11-07] MEDS: Calcium Acetate 667 MG CAPSULE PO SCH ×3 (09:07→16:53)
[2019-11-07] MEDS: allopurinoL 100 MG TABLET PO SCH (09:07)
[2019-11-07] MEDS: Folic Acid 1 MG TABLET PO SCH (09:07)
[2019-11-07] MEDS: Renal Vitamin 1 CAP CAPSULE PO SCH (09:07)
[2019-11-07] MEDS: Aspirin Enteric Coated 81 MG Tablet PO SCH (09:08)
[2019-11-07] MEDS: Furosemide 40 MG TABLET PO SCH ×2 (15:04→16:53)
[2019-11-07] MEDS: hydrALAZINE 25 MG TABLET PO SCH (15:14)
[2019-11-07] MEDS: Acetaminophen 325 MG TABLET PO PRN (15:14)
[2019-11-07] MEDS: Metoprolol XL (24 HR) Succ 50 MG TAB.ER.24H PO SCH (15:14)
[2019-11-08] MEDS: *HR* OxyCODONE Immed Rel 5 MG TABLET PO PRN ×4 (01:10→18:00)
[2019-11-08 05:05] LABS: Basophils # 0.1 K/mcL (0.0-0.2); Basophils % 0.4 %; Eosinophils % 5.1 %; Hemoglobin 10.2 g/dL (12.9-16.9); Immature Granulocytes % 0.5 % (0-4); Lymphocytes # 2.5 K/mcL (0.6-4.6); Lymphocytes % 12.7 %; Mean Corpuscular HGB Conc 29.1 g/dL (31.6-35.5); Mean Corpuscular Hemoglobin 25.8 pg (28.0-33.3); Mean Corpuscular Volume 88.4 fL (83.0-100.0); Mean Platelet Volume 11.1 fL (9.4-12.4); Monocytes # 2.5 K/mcL (0.0-1.3); Monocytes % 12.7 %; Neutrophils # 13.3 K/mcL (1.6-8.9); Nucleated Red Blood Cells 0.2 /100 WBC (0); Platelet Count 902 K/mcL (140-400); Red Blood Count 3.96 M/mcL (4.19-5.50); Red Cell Distribution Width 16.7 % (11.5-14.5); Segmented Neutrophils % 68.6 %; White Blood Count 19.4 K/mcL (4.3-11.1)
[2019-11-08 05:07] LABS: INR 1.2; Prothrombin Time 13.8 Seconds (9.4-12.1)
[2019-11-08 05:08] LABS: Albumin 2.4 g/dL (3.5-5.7); Calcium 7.8 mg/dL (8.6-10.3); Phosphorous 4.4 mg/dL (2.7-4.5); Potassium 4.8 mEq/L (3.5-5.1)
[2019-11-08] MEDS: Piperacillin/Tazobactam 3.375 GM in 0.9 % Sodium Chloride Mini Bag 100 ML IVPB SCH ×2 (06:07→17:59)
[2019-11-08] MEDS: Renal Vitamin 1 CAP CAPSULE PO SCH (09:05)
[2019-11-08] MEDS: hydrALAZINE 25 MG TABLET PO SCH (09:05)
[2019-11-08] MEDS: Insulin LISPRO 300 UNITS/3 ML VIAL SQ SCH ×4 (09:05→21:39)
[2019-11-08] MEDS: Furosemide 40 MG TABLET PO SCH ×2 (09:05→16:44)
[2019-11-08] MEDS: Aspirin Enteric Coated 81 MG Tablet PO SCH (09:05)
[2019-11-08] MEDS: Folic Acid 1 MG TABLET PO SCH (09:05)
[2019-11-08] MEDS: Calcium Acetate 667 MG CAPSULE PO SCH ×3 (09:06→16:44)
[2019-11-08] MEDS: Metoprolol XL (24 HR) Succ 50 MG TAB.ER.24H PO SCH (09:07)
[2019-11-08] MEDS: allopurinoL 100 MG TABLET PO SCH (09:07)
[2019-11-08] MEDS: Fluticasone Propionate Nasal 50 MCG/SPRAY BOTTLE NS SCH (13:37)
[2019-11-09] MEDS: *HR* OxyCODONE Immed Rel 5 MG TABLET PO PRN ×2 (00:16→09:14)
[2019-11-09 01:55] LABS: Adenovirus Not Detected (Not Detect); Bordetella Pertussis Not Detected (Not Detect); Chlamydophila pneumoniae Not Detected (Not Detect); Coronavirus 229E Not Detected (Not Detect); Coronavirus HKU1 Not Detected (Not Detect); Coronavirus NL63 Not Detected (Not Detect); Coronavirus OC43 Not Detected (Not Detect); Human Metapneumovirus Not Detected (Not Detect); Human Rhinovirus/Enterovirus Not Detected (Not Detect); Influenza A Subtype 2009 H1 Not Detected (Not Detect); Influenza B Not Detected (Not Detect); Mycoplasma pneumoniae Not Detected (Not Detect); Parainfluenza Virus 1 Not Detected (Not Detect); Parainfluenza Virus 2 Not Detected (Not Detect); Parainfluenza Virus 3 Not Detected (Not Detect); Parainfluenza Virus 4 Not Detected (Not Detect); Respiratory Syncytial Virus Not Detected (Not Detect); SARS-CoV-2 Not Detected (Not Detect)
[2019-11-09 04:52] LABS: Eosinophils % 4.9 %; Immature Granulocytes % 0.5 % (0-4)
[2019-11-09 04:53] LABS: Basophils # 0.1 K/mcL (0.0-0.2); Basophils % 0.4 %; Hematocrit 35.3 % (37.5-50.1); Hemoglobin 10.2 g/dL (12.9-16.9); Lymphocytes # 2.5 K/mcL (0.6-4.6); Lymphocytes % 12.5 %; Mean Corpuscular HGB Conc 28.9 g/dL (31.6-35.5); Mean Corpuscular Volume 90.1 fL (83.0-100.0); Mean Platelet Volume 10.8 fL (9.4-12.4); Monocytes # 2.3 K/mcL (0.0-1.3); Monocytes % 11.4 %; Nucleated Red Blood Cells 0.2 /100 WBC (0); Platelet Count 870 K/mcL (140-400); Red Blood Count 3.92 M/mcL (4.19-5.50); Red Cell Distribution Width 16.9 % (11.5-14.5); Segmented Neutrophils % 70.3 %; White Blood Count 19.9 K/mcL (4.3-11.1)
[2019-11-09 05:08] LABS: Albumin 2.4 g/dL (3.5-5.7); Calcium 8.2 mg/dL (8.6-10.3); Phosphorous 4.8 mg/dL (2.7-4.5); Potassium 4.9 mEq/L (3.5-5.1)
[2019-11-09 05:55] LABS: Anisocytosis 1+ (Not Present); Hypochromasia Present (Not Present); Platelet Estimate Increased (Normal)
[2019-11-09] MEDS: Piperacillin/Tazobactam 3.375 GM in 0.9 % Sodium Chloride Mini Bag 100 ML IVPB SCH ×2 (06:01→18:18)
[2019-11-09] MEDS ORDERED: 0.9 % Sodium Chloride 250 ML IVC PRN (07:49)
[2019-11-09] MEDS: Insulin LISPRO 300 UNITS/3 ML VIAL SQ SCH ×4 (08:15→20:04)
[2019-11-09] MEDS: allopurinoL 100 MG TABLET PO SCH (09:14)
[2019-11-09] MEDS: Furosemide 40 MG TABLET PO SCH ×2 (09:14→18:10)
[2019-11-09] MEDS: Metoprolol XL (24 HR) Succ 50 MG TAB.ER.24H PO SCH (09:14)
[2019-11-09] MEDS: Folic Acid 1 MG TABLET PO SCH (09:15)
[2019-11-09] MEDS: Fluticasone Propionate Nasal 50 MCG/SPRAY BOTTLE NS SCH (09:15)
[2019-11-09] MEDS: Aspirin Enteric Coated 81 MG Tablet PO SCH (09:15)
[2019-11-09] MEDS: Renal Vitamin 1 CAP CAPSULE PO SCH (09:15)
[2019-11-09] MEDS: Calcium Acetate 667 MG CAPSULE PO SCH ×3 (09:16→18:20)
[2019-11-09] MEDS: hydrALAZINE 25 MG TABLET PO SCH (09:16)
[2019-11-09] MEDS ORDERED: 0.9 % Sodium Chloride Mini Bag 100 ML ONE (10:27)
[2019-11-09] MEDS ORDERED: *HR* Rocuronium Bromide 50 MG/5 ML VIAL ONE (11:00)
[2019-11-09] MEDS ORDERED: *HR* Propofol 200 MG/20 ML VIAL IVP ONE (11:00)
[2019-11-09] MEDS ORDERED: Dexamethasone 4 MG/ML VIAL ONE (11:00)
[2019-11-09] MEDS ORDERED: Lidocaine -MPF 2% 2 ML VIAL ONE (11:00)
[2019-11-09] MEDS ORDERED: Lidocaine HCL 4 ML Topical Solution (Laryng-O-Jet Kit Sterile Pak) TP ONE (11:00)
[2019-11-09] MEDS ORDERED: Ondansetron 4 MG/2 ML VIAL ONE (11:00)
[2019-11-09] MEDS ORDERED: *HR* PHENYLEPHRINE 1,000 MCG/10 ML SYRINGE IVP ONE (12:33)
[2019-11-09] MEDS ORDERED: *HR* FentaNYL (PF) 100 MCG/2 ML VIAL ONE (12:33)
[2019-11-09] MEDS ORDERED: *HR* Vasopressin 20 UNIT/ML VIAL ONE (12:37)
[2019-11-09] MEDS ORDERED: Ondansetron 4 MG/2 ML VIAL IVP PRN (14:41)
[2019-11-09] MEDS ORDERED: *HR* HYDROmorphone PF 0.5 MG/0.5 ML SYRINGE IVP PRN (14:41)
[2019-11-09] MEDS ORDERED: Vancomycin 1,750 MG in 0.9 % Sodium Chloride 250 ML IVPB SCH (15:00)
[2019-11-09] MEDS ORDERED: *HR* OxyCODONE Immed Rel 5 MG TABLET PO PRN (16:39)
[2019-11-09] MEDS ORDERED: Desmopressin Acetate 30 MCG in 0.9 % Sodium Chloride 50 ML IVPB ONE (22:46)
[2019-11-09] MEDS: Albumin Human 5% 12.5 GM/250 ML IV.SOLN IVC SCH (23:06)
[2019-11-10] MEDS: Albumin Human 5% 12.5 GM/250 ML IV.SOLN IVC SCH (00:12)
[2019-11-10] MEDS: Piperacillin/Tazobactam 3.375 GM in 0.9 % Sodium Chloride Mini Bag 100 ML IVPB SCH (05:35)
[2019-11-10 06:10] LABS: Albumin 2.5 g/dL (3.5-5.7); Phosphorous 6.6 mg/dL (2.7-4.5); Potassium 5.5 mEq/L (3.5-5.1)
[2019-11-10 06:12] LABS: Albumin 2.5 g/dL (3.5-5.7); Albumin/Globulin Ratio 0.9 (1.1-2.2); Bilirubin,Total 0.2 mg/dL (0.3-1.0); Calcium 7.8 mg/dL (8.6-10.3); Globulin 2.7 g/dL (2.4-3.5); Potassium 5.5 mEq/L (3.5-5.1); Total Protein 5.2 g/dL (6.4-8.9)
[2019-11-10 06:36] LABS: Basophils % 0.1 %; Lymphocytes % 8.9 %; Nucleated Red Blood Cells 0.2 /100 WBC (0); Red Blood Count 2.43 M/mcL (4.19-5.50)
[2019-11-10 06:37] LABS: Hematocrit 22.1 % (37.5-50.1); Hemoglobin 6.3 g/dL (12.9-16.9); Immature Granulocytes % 1.1 % (0-4); Lymphocytes # 2.1 K/mcL (0.6-4.6); Mean Corpuscular HGB Conc 28.5 g/dL (31.6-35.5); Mean Corpuscular Hemoglobin 25.9 pg (28.0-33.3); Mean Corpuscular Volume 90.9 fL (83.0-100.0); Mean Platelet Volume 11.1 fL (9.4-12.4); Monocytes # 1.5 K/mcL (0.0-1.3); Monocytes % 6.5 %; Platelet Count 701 K/mcL (140-400); Red Cell Distribution Width 16.9 % (11.5-14.5); Segmented Neutrophils % 83.4 %; White Blood Count 23.1 K/mcL (4.3-11.1)
[2019-11-10 06:40] LABS: Neutrophils # 19.3 K/mcL (1.6-8.9)
[2019-11-10 07:01] LABS: Anisocytosis 1+ (Not Present); Hypochromasia Present (Not Present); Large Platelets Present (Not Present); Platelet Estimate Marked Increase (Normal)
[2019-11-10] MEDS ORDERED: Ondansetron 4 MG/2 ML VIAL IVP PRN (07:11)
[2019-11-10] MEDS ORDERED: 0.9 % Sodium Chloride 250 ML IVC PRN (07:11)
[2019-11-10] MEDS ORDERED: *HR* Dextrose 50 % in Water (Vial) 50 ML VIAL IVP PRN (07:11)
[2019-11-10] MEDS ORDERED: Naloxone 0.4 MG/ML INJ IVP PRN (07:11)
[2019-11-10] MEDS ORDERED: Dextrose Gel 15 GM/37.5 ML TUBE PO PRN ×2 (07:11)
[2019-11-10] MEDS ORDERED: Ipratropium/Albuterol Neb 3 ML IH PRN (07:11)
[2019-11-10] MEDS ORDERED: 0.9 % Sodium Chloride 1,000 ML PRIME SCH (07:11)
[2019-11-10] MEDS ORDERED: D5% in Water 1,000 ML IVC PRN (07:11)
[2019-11-10] MEDS ORDERED: 0.9 % Sodium Chloride 1,000 ML ONE ×2 (07:40→12:25)
[2019-11-10] MEDS: Furosemide 40 MG TABLET PO SCH ×2 (08:29→18:27)
[2019-11-10] MEDS: hydrALAZINE 25 MG TABLET PO SCH (08:30)
[2019-11-10] MEDS: Aspirin Enteric Coated 81 MG Tablet PO SCH (08:30)
[2019-11-10] MEDS: Calcium Acetate 667 MG CAPSULE PO SCH ×3 (08:30→21:01)
[2019-11-10] MEDS: Fluticasone Propionate Nasal 50 MCG/SPRAY BOTTLE NS SCH (08:30)
[2019-11-10] MEDS: Folic Acid 1 MG TABLET PO SCH (08:30)
[2019-11-10] MEDS: Metoprolol XL (24 HR) Succ 50 MG TAB.ER.24H PO SCH (08:31)
[2019-11-10] MEDS: Renal Vitamin 1 CAP CAPSULE PO SCH (08:31)
[2019-11-10] MEDS: allopurinoL 100 MG TABLET PO SCH (08:31)
[2019-11-10] MEDS: polyethylene glycoL 3350 17 GM POWD.PACK PO SCH (08:31)
[2019-11-10] MEDS: Insulin LISPRO 300 UNITS/3 ML VIAL SQ SCH ×4 (08:31→21:39)
[2019-11-10] MEDS ORDERED: polyethylene glycoL 3350 17 GM POWD.PACK PO SCH (09:00)
[2019-11-10] MEDS ORDERED: Vancomycin 1,750 MG in 0.9 % Sodium Chloride 250 ML IVPB SCH (10:00)
[2019-11-10 16:08] LABS: Hematocrit 27.8 % (37.5-50.1)
[2019-11-10 16:13] LABS: Hemoglobin 8.5 g/dL (12.9-16.9)
[2019-11-10] MEDS ORDERED: Piperacillin/Tazobactam 3.375 GM in 0.9 % Sodium Chloride Mini Bag 100 ML IVPB SCH (18:00)
[2019-11-10] MEDS: metroNIDAZOLE 500 MG TABLET PO SCH ×2 (18:27→21:39)
[2019-11-10] MEDS: *HR* OxyCODONE Immed Rel 5 MG TABLET PO PRN (21:32)
[2019-11-11 00:37] LABS: Hemoglobin 8.5 g/dL (12.9-16.9)
[2019-11-11 04:43] LABS: Basophils # 0.1 K/mcL (0.0-0.2); Basophils % 0.2 %; Eosinophils # 0.3 K/mcL (0.0-0.6); Eosinophils % 1.2 %; Hematocrit 28.4 % (37.5-50.1); Hemoglobin 8.3 g/dL (12.9-16.9); Immature Granulocytes % 0.7 % (0-4); Lymphocytes % 9.4 %; Mean Corpuscular HGB Conc 29.2 g/dL (31.6-35.5); Mean Corpuscular Hemoglobin 26.3 pg (28.0-33.3); Mean Corpuscular Volume 89.9 fL (83.0-100.0); Mean Platelet Volume 11.1 fL (9.4-12.4); Monocytes # 2.2 K/mcL (0.0-1.3); Monocytes % 10.8 %; Neutrophils # 16.2 K/mcL (1.6-8.9); Nucleated Red Blood Cells 0.6 /100 WBC (0); Platelet Count 736 K/mcL (140-400); Red Blood Count 3.16 M/mcL (4.19-5.50); Red Cell Distribution Width 16.2 % (11.5-14.5); Segmented Neutrophils % 77.7 %; White Blood Count 20.8 K/mcL (4.3-11.1)
[2019-11-11 05:21] LABS: Albumin 2.4 g/dL (3.5-5.7); Albumin/Globulin Ratio 0.8 (1.1-2.2); Bilirubin,Total 0.2 mg/dL (0.3-1.0); Calcium 7.9 mg/dL (8.6-10.3); Globulin 2.9 g/dL (2.4-3.5); Phosphorous 7.4 mg/dL (2.7-4.5); Potassium 5.6 mEq/L (3.5-5.1); Total Protein 5.3 g/dL (6.4-8.9)
[2019-11-11] MEDS: Insulin LISPRO 300 UNITS/3 ML VIAL SQ SCH ×4 (07:55→20:02)
[2019-11-11] MEDS: Aspirin Enteric Coated 81 MG Tablet PO SCH (07:56)
[2019-11-11] MEDS: polyethylene glycoL 3350 17 GM POWD.PACK PO SCH (07:56)
[2019-11-11] MEDS: Renal Vitamin 1 CAP CAPSULE PO SCH (07:56)
[2019-11-11] MEDS: metroNIDAZOLE 500 MG TABLET PO SCH ×3 (07:56→20:01)
[2019-11-11] MEDS: hydrALAZINE 25 MG TABLET PO SCH (07:56)
[2019-11-11] MEDS: Furosemide 40 MG TABLET PO SCH ×2 (07:56→15:58)
[2019-11-11] MEDS: allopurinoL 100 MG TABLET PO SCH (07:56)
[2019-11-11] MEDS: Calcium Acetate 667 MG CAPSULE PO SCH ×3 (07:57→15:58)
[2019-11-11] MEDS: Metoprolol XL (24 HR) Succ 50 MG TAB.ER.24H PO SCH (07:57)
[2019-11-11] MEDS: Folic Acid 1 MG TABLET PO SCH (07:57)
[2019-11-11] MEDS ORDERED: 0.9 % Sodium Chloride 250 ML IVC PRN (08:25)
[2019-11-11] MEDS: *HR* OxyCODONE Immed Rel 5 MG TABLET PO PRN ×2 (12:06→20:02)
[2019-11-11] MEDS: Fluticasone Propionate Nasal 50 MCG/SPRAY BOTTLE NS SCH (12:10)
[2019-11-11] MEDS: Cefepime HCl 2,000 MG in Water for inj. (sterile) 20 ML IVP SCH (17:40)
[2019-11-12 02:40] LABS: Calcium 8.2 mg/dL (8.6-10.3); Magnesium 2.1 mg/dL (1.6-2.6)
[2019-11-12 03:04] LABS: Folate 13.5 ng/mL (3.0-16.0)
[2019-11-12] MEDS: *HR* OxyCODONE Immed Rel 5 MG TABLET PO PRN ×3 (05:49→21:08)
[2019-11-12] MEDS: allopurinoL 100 MG TABLET PO SCH (07:54)
[2019-11-12] MEDS: Folic Acid 1 MG TABLET PO SCH (07:54)
[2019-11-12] MEDS: Metoprolol XL (24 HR) Succ 50 MG TAB.ER.24H PO SCH (07:54)
[2019-11-12] MEDS: polyethylene glycoL 3350 17 GM POWD.PACK PO SCH (07:55)
[2019-11-12] MEDS: Aspirin Enteric Coated 81 MG Tablet PO SCH (07:55)
[2019-11-12] MEDS: Calcium Acetate 667 MG CAPSULE PO SCH ×3 (07:55→17:03)
[2019-11-12] MEDS: hydrALAZINE 25 MG TABLET PO SCH (07:55)
[2019-11-12] MEDS: Furosemide 40 MG TABLET PO SCH ×2 (07:55→17:03)
[2019-11-12] MEDS: Renal Vitamin 1 CAP CAPSULE PO SCH (07:55)
[2019-11-12] MEDS: Insulin LISPRO 300 UNITS/3 ML VIAL SQ SCH ×4 (07:57→21:11)
[2019-11-12] MEDS: Fluticasone Propionate Nasal 50 MCG/SPRAY BOTTLE NS SCH (07:57)
[2019-11-12] MEDS: metroNIDAZOLE 500 MG TABLET PO SCH ×3 (08:11→21:08)
[2019-11-12 14:45] LABS: Basophils # 0.1 K/mcL (0.0-0.2); Basophils % 0.3 %; Eosinophils # 1.6 K/mcL (0.0-0.6); Eosinophils % 7.2 %; Hematocrit 29.1 % (37.5-50.1); Hemoglobin 8.5 g/dL (12.9-16.9); Immature Granulocytes % 0.6 % (0-4); Lymphocytes # 2.7 K/mcL (0.6-4.6); Lymphocytes % 11.9 %; Mean Corpuscular HGB Conc 29.2 g/dL (31.6-35.5); Mean Corpuscular Hemoglobin 26.3 pg (28.0-33.3); Mean Corpuscular Volume 90.1 fL (83.0-100.0); Mean Platelet Volume 10.9 fL (9.4-12.4); Monocytes # 2.5 K/mcL (0.0-1.3); Monocytes % 11.1 %; Neutrophils # 15.3 K/mcL (1.6-8.9); Nucleated Red Blood Cells 1.2 /100 WBC (0); Platelet Count 719 K/mcL (140-400); Red Blood Count 3.23 M/mcL (4.19-5.50); Red Cell Distribution Width 16.5 % (11.5-14.5); Segmented Neutrophils % 68.9 %; White Blood Count 22.2 K/mcL (4.3-11.1)
[2019-11-12] MEDS: Bisacodyl 10 MG RECTAL SUPPOSITORY RC ONE ×2 (17:46→17:51)
[2019-11-12] MEDS: MOM Conc 10 ML UD.LIQ PO SCH (21:09)
[2019-11-12] MEDS: Acetaminophen 325 MG TABLET PO PRN (23:45)
[2019-11-13] MEDS: *HR* OxyCODONE Immed Rel 5 MG TABLET PO PRN ×3 (02:51→20:38)
[2019-11-13 03:16] LABS: Hematocrit 30.8 % (37.5-50.1); Hemoglobin 8.9 g/dL (12.9-16.9); Mean Corpuscular HGB Conc 28.9 g/dL (31.6-35.5)
[2019-11-13 03:18] LABS: Mean Corpuscular Hemoglobin 26.9 pg (28.0-33.3); Mean Corpuscular Volume 93.1 fL (83.0-100.0); Mean Platelet Volume 10.9 fL (9.4-12.4); Platelet Count 739 K/mcL (140-400); Red Blood Count 3.31 M/mcL (4.19-5.50); White Blood Count 23.8 K/mcL (4.3-11.1)
[2019-11-13 03:28] LABS: Calcium 7.8 mg/dL (8.6-10.3); Potassium 5.6 mEq/L (3.5-5.1)
[2019-11-13] MEDS: Metoprolol XL (24 HR) Succ 50 MG TAB.ER.24H PO SCH (07:15)
[2019-11-13] MEDS: Calcium Acetate 667 MG CAPSULE PO SCH ×3 (07:16→16:01)
[2019-11-13] MEDS: allopurinoL 100 MG TABLET PO SCH (07:16)
[2019-11-13] MEDS: Renal Vitamin 1 CAP CAPSULE PO SCH (07:16)
[2019-11-13] MEDS: Furosemide 40 MG TABLET PO SCH ×2 (07:16→16:12)
[2019-11-13] MEDS: Folic Acid 1 MG TABLET PO SCH (07:16)
[2019-11-13] MEDS: Aspirin Enteric Coated 81 MG Tablet PO SCH (07:16)
[2019-11-13] MEDS: metroNIDAZOLE 500 MG TABLET PO SCH ×3 (07:16→20:38)
[2019-11-13] MEDS: hydrALAZINE 25 MG TABLET PO SCH (07:17)
[2019-11-13] MEDS: Fluticasone Propionate Nasal 50 MCG/SPRAY BOTTLE NS SCH (07:17)
[2019-11-13] MEDS: polyethylene glycoL 3350 17 GM POWD.PACK PO SCH (07:19)
[2019-11-13] MEDS: Insulin LISPRO 300 UNITS/3 ML VIAL SQ SCH ×4 (07:27→20:39)
[2019-11-13] MEDS: Sodium Ferric Gluconat/Sucrose 125 MG in 0.9 % Sodium Chloride 100 ML IVPB SCH (08:34)
[2019-11-13] MEDS ORDERED: Bisacodyl 10 MG RECTAL SUPPOSITORY RC ONE (17:58)
[2019-11-13] MEDS: MOM Conc 10 ML UD.LIQ PO SCH (20:38)
[2019-11-14 04:29] LABS: Basophils # 0.1 K/mcL (0.0-0.2); Basophils % 0.6 %; Eosinophils # 1.7 K/mcL (0.0-0.6); Eosinophils % 8.3 %; Hematocrit 30.4 % (37.5-50.1); Hemoglobin 8.9 g/dL (12.9-16.9); Immature Granulocytes % 0.6 % (0-4); Lymphocytes # 2.4 K/mcL (0.6-4.6); Lymphocytes % 12.1 %; Mean Corpuscular HGB Conc 29.3 g/dL (31.6-35.5); Mean Corpuscular Hemoglobin 27.2 pg (28.0-33.3); Monocytes # 1.9 K/mcL (0.0-1.3); Monocytes % 9.4 %; Nucleated Red Blood Cells 0.4 /100 WBC (0); Platelet Count 767 K/mcL (140-400); Red Blood Count 3.27 M/mcL (4.19-5.50); Red Cell Distribution Width 17.9 % (11.5-14.5); White Blood Count 20.2 K/mcL (4.3-11.1)
[2019-11-14 04:43] LABS: Calcium 7.7 mg/dL (8.6-10.3); Potassium 5.5 mEq/L (3.5-5.1)
[2019-11-14] MEDS: Acetaminophen 325 MG TABLET PO PRN (06:09)
[2019-11-14] MEDS ORDERED: 0.9 % Sodium Chloride 2,000 ML ONE (06:50)
[2019-11-14] MEDS ORDERED: 0.9 % Sodium Chloride 250 ML IVC PRN (07:23)
[2019-11-14] MEDS ORDERED: 0.9 % Sodium Chloride 1,000 ML PRIME SCH (07:30)
[2019-11-14] MEDS: Calcium Acetate 667 MG CAPSULE PO SCH ×3 (07:40→17:57)
[2019-11-14] MEDS: Renal Vitamin 1 CAP CAPSULE PO SCH (07:40)
[2019-11-14] MEDS: Metoprolol XL (24 HR) Succ 50 MG TAB.ER.24H PO SCH (07:40)
[2019-11-14] MEDS: Furosemide 40 MG TABLET PO SCH ×2 (07:40→15:02)
[2019-11-14] MEDS: polyethylene glycoL 3350 17 GM POWD.PACK PO SCH (07:41)
[2019-11-14] MEDS: Insulin LISPRO 300 UNITS/3 ML VIAL SQ SCH ×4 (07:41→20:29)
[2019-11-14] MEDS: hydrALAZINE 25 MG TABLET PO SCH (07:41)
[2019-11-14] MEDS: Aspirin Enteric Coated 81 MG Tablet PO SCH (07:41)
[2019-11-14] MEDS: allopurinoL 100 MG TABLET PO SCH (07:41)
[2019-11-14] MEDS: Folic Acid 1 MG TABLET PO SCH (07:42)
[2019-11-14] MEDS: Sodium Ferric Gluconat/Sucrose 125 MG in 0.9 % Sodium Chloride 100 ML IVPB SCH (07:42)
[2019-11-14] MEDS: metroNIDAZOLE 500 MG TABLET PO SCH ×3 (07:42→20:28)
[2019-11-14] MEDS: Fluticasone Propionate Nasal 50 MCG/SPRAY BOTTLE NS SCH (07:42)
[2019-11-14] MEDS: Cefepime HCl 2,000 MG in Water for inj. (sterile) 20 ML IVP SCH (15:01)
[2019-11-14] MEDS ORDERED: Vancomycin 500 MG in 0.9 % Sodium Chloride 250 ML IVPB ONE (16:00)
[2019-11-14] MEDS: *HR* OxyCODONE Immed Rel 5 MG TABLET PO PRN (20:28)
[2019-11-14] MEDS: MOM Conc 10 ML UD.LIQ PO SCH (20:29)
[2019-11-15 02:52] LABS: Hematocrit 31.4 % (37.5-50.1); Hemoglobin 9.3 g/dL (12.9-16.9); Mean Corpuscular HGB Conc 29.6 g/dL (31.6-35.5); Mean Corpuscular Hemoglobin 27.3 pg (28.0-33.3); Mean Corpuscular Volume 92.1 fL (83.0-100.0); Mean Platelet Volume 11.5 fL (9.4-12.4); Platelet Count 859 K/mcL (140-400); Red Blood Count 3.41 M/mcL (4.19-5.50); Red Cell Distribution Width 18.3 % (11.5-14.5); White Blood Count 18.2 K/mcL (4.3-11.1)
[2019-11-15 03:07] LABS: Calcium 7.9 mg/dL (8.6-10.3); Potassium 4.5 mEq/L (3.5-5.1)
[2019-11-15] MEDS: Furosemide 40 MG TABLET PO SCH ×2 (07:39→17:36)
[2019-11-15] MEDS: metroNIDAZOLE 500 MG TABLET PO SCH ×3 (07:39→21:09)
[2019-11-15] MEDS: Metoprolol XL (24 HR) Succ 50 MG TAB.ER.24H PO SCH (07:39)
[2019-11-15] MEDS: Renal Vitamin 1 CAP CAPSULE PO SCH (07:39)
[2019-11-15] MEDS: Calcium Acetate 667 MG CAPSULE PO SCH ×3 (07:39→17:36)
[2019-11-15] MEDS: hydrALAZINE 25 MG TABLET PO SCH (07:39)
[2019-11-15] MEDS: allopurinoL 100 MG TABLET PO SCH (07:40)
[2019-11-15] MEDS: Fluticasone Propionate Nasal 50 MCG/SPRAY BOTTLE NS SCH (07:40)
[2019-11-15] MEDS: polyethylene glycoL 3350 17 GM POWD.PACK PO SCH (07:40)
[2019-11-15] MEDS: Aspirin Enteric Coated 81 MG Tablet PO SCH (07:40)
[2019-11-15] MEDS: Folic Acid 1 MG TABLET PO SCH (07:40)
[2019-11-15] MEDS: Sodium Ferric Gluconat/Sucrose 125 MG in 0.9 % Sodium Chloride 100 ML IVPB SCH (08:33)
[2019-11-15] MEDS: Insulin LISPRO 300 UNITS/3 ML VIAL SQ SCH ×4 (08:33→21:10)
[2019-11-15] MEDS: *HR* OxyCODONE Immed Rel 5 MG TABLET PO PRN (21:09)
[2019-11-15] MEDS: MOM Conc 10 ML UD.LIQ PO SCH (21:10)
[2019-11-16] MEDS ORDERED: 0.9 % Sodium Chloride 250 ML IVC PRN (07:19)
[2019-11-16] MEDS: Furosemide 40 MG TABLET PO SCH ×2 (08:37→17:52)
[2019-11-16] MEDS: Calcium Acetate 667 MG CAPSULE PO SCH ×3 (08:37→17:51)
[2019-11-16] MEDS: Renal Vitamin 1 CAP CAPSULE PO SCH (08:38)
[2019-11-16] MEDS: polyethylene glycoL 3350 17 GM POWD.PACK PO SCH (08:38)
[2019-11-16] MEDS: allopurinoL 100 MG TABLET PO SCH (08:38)
[2019-11-16] MEDS: Fluticasone Propionate Nasal 50 MCG/SPRAY BOTTLE NS SCH (08:38)
[2019-11-16] MEDS: hydrALAZINE 25 MG TABLET PO SCH (08:38)
[2019-11-16] MEDS: Metoprolol XL (24 HR) Succ 50 MG TAB.ER.24H PO SCH (08:38)
[2019-11-16] MEDS: Aspirin Enteric Coated 81 MG Tablet PO SCH (08:38)
[2019-11-16] MEDS: metroNIDAZOLE 500 MG TABLET PO SCH ×3 (08:38→19:57)
[2019-11-16] MEDS: Folic Acid 1 MG TABLET PO SCH (08:38)
[2019-11-16] MEDS: Insulin LISPRO 300 UNITS/3 ML VIAL SQ SCH ×4 (08:41→19:52)
[2019-11-16 10:37] LABS: Basophils # 0.1 K/mcL (0.0-0.2); Basophils % 0.4 %; Eosinophils # 0.7 K/mcL (0.0-0.6); Eosinophils % 3.4 %; Hematocrit 32.3 % (37.5-50.1); Hemoglobin 9.7 g/dL (12.9-16.9); Immature Granulocytes % 0.7 % (0-4); Lymphocytes # 1.8 K/mcL (0.6-4.6); Lymphocytes % 8.9 %; Mean Corpuscular Hemoglobin 27.6 pg (28.0-33.3); Mean Platelet Volume 11.6 fL (9.4-12.4); Monocytes # 1.4 K/mcL (0.0-1.3); Monocytes % 6.8 %; Neutrophils # 15.9 K/mcL (1.6-8.9); Nucleated Red Blood Cells 0.2 /100 WBC (0); Platelet Count 938 K/mcL (140-400); Red Blood Count 3.51 M/mcL (4.19-5.50); Red Cell Distribution Width 18.6 % (11.5-14.5); Segmented Neutrophils % 79.8 %; White Blood Count 19.9 K/mcL (4.3-11.1)
[2019-11-16 10:53] LABS: Calcium 8.1 mg/dL (8.6-10.3); Potassium 4.7 mEq/L (3.5-5.1)
[2019-11-16 11:32] LABS: Hypochromasia Present (Not Present); Large Platelets Present (Not Present); Platelet Estimate Marked Increase (Normal); Toxic Granulation Present (Not Present)
[2019-11-16] MEDS: Sodium Ferric Gluconat/Sucrose 125 MG in 0.9 % Sodium Chloride 100 ML IVPB SCH (11:58)
[2019-11-16] MEDS: *HR* OxyCODONE Immed Rel 5 MG TABLET PO PRN ×2 (14:44→19:57)
[2019-11-16] MEDS: *HR* Heparin 5,000 UNIT/ML VIAL SQ SCH (17:51)
[2019-11-16] MEDS: Cefepime HCl 2,000 MG in Water for inj. (sterile) 20 ML IVP SCH (17:52)
[2019-11-16] MEDS ORDERED: Vancomycin 500 MG in 0.9 % Sodium Chloride Mini Bag 100 ML IVPB ONE (18:00)
[2019-11-16] MEDS: MOM Conc 10 ML UD.LIQ PO SCH (19:57)
[2019-11-17 02:05] LABS: Basophils # 0.1 K/mcL (0.0-0.2); Basophils % 0.6 %; Hematocrit 32.3 % (37.5-50.1); Hemoglobin 9.7 g/dL (12.9-16.9); Immature Granulocytes % 0.7 % (0-4); Lymphocytes # 2.6 K/mcL (0.6-4.6); Lymphocytes % 13.5 %; Mean Corpuscular Hemoglobin 27.9 pg (28.0-33.3); Mean Corpuscular Volume 92.8 fL (83.0-100.0); Mean Platelet Volume 11.4 fL (9.4-12.4); Monocytes # 1.8 K/mcL (0.0-1.3); Monocytes % 9.1 %; Neutrophils # 13.9 K/mcL (1.6-8.9); Nucleated Red Blood Cells 0.2 /100 WBC (0); Platelet Count 910 K/mcL (140-400); Red Blood Count 3.48 M/mcL (4.19-5.50); Red Cell Distribution Width 18.8 % (11.5-14.5); Segmented Neutrophils % 71.1 %; White Blood Count 19.5 K/mcL (4.3-11.1)
[2019-11-17 02:24] LABS: Calcium 7.9 mg/dL (8.6-10.3); Magnesium 1.9 mg/dL (1.6-2.6); Phosphorous 3.2 mg/dL (2.7-4.5); Potassium 4.3 mEq/L (3.5-5.1)
[2019-11-17 02:43] LABS: Hypochromasia Present (Not Present); Platelet Estimate Marked Increase (Normal); Toxic Granulation Present (Not Present)
[2019-11-17 02:44] LABS: Reactive Lymphocytes Present (Not Present)
[2019-11-17] MEDS: Acetaminophen 325 MG TABLET PO PRN (03:20)
[2019-11-17] MEDS: *HR* Heparin 5,000 UNIT/ML VIAL SQ SCH (05:48)
[2019-11-17] MEDS: Insulin LISPRO 300 UNITS/3 ML VIAL SQ SCH ×2 (07:50→14:00)
[2019-11-17] MEDS: polyethylene glycoL 3350 17 GM POWD.PACK PO SCH (07:51)
[2019-11-17] MEDS: Metoprolol XL (24 HR) Succ 50 MG TAB.ER.24H PO SCH (07:51)
[2019-11-17] MEDS: allopurinoL 100 MG TABLET PO SCH (07:51)
[2019-11-17] MEDS: Renal Vitamin 1 CAP CAPSULE PO SCH (07:51)
[2019-11-17] MEDS: hydrALAZINE 25 MG TABLET PO SCH (07:51)
[2019-11-17] MEDS: Calcium Acetate 667 MG CAPSULE PO SCH (07:52)
[2019-11-17] MEDS: Furosemide 40 MG TABLET PO SCH (07:52)
[2019-11-17] MEDS: Aspirin Enteric Coated 81 MG Tablet PO SCH (07:52)
[2019-11-17] MEDS: metroNIDAZOLE 500 MG TABLET PO SCH (07:52)
[2019-11-17] MEDS: Folic Acid 1 MG TABLET PO SCH (07:52)
[2019-11-17] MEDS: Fluticasone Propionate Nasal 50 MCG/SPRAY BOTTLE NS SCH (07:53)
[2019-11-17] MEDS: Sodium Ferric Gluconat/Sucrose 125 MG in 0.9 % Sodium Chloride 100 ML IVPB SCH (09:23)
[2019-11-17 11:17] VITALS: BP 168/86
== END 2019-11-17 15:30 | disposition home or self-care (01) | DRG 121 ==
LOC: EMEROOARM 07:34 → 2ANU 07:34 → SUATTDRO 11:24 → 2ANU 12:06 → SUATTDRO 11-05 15:26 → 2NNU 11-09 16:22
PROVIDERS: ADMIT Pharmacist; ATTEND Internal Medicine

== ENCOUNTER 2019-11-20 09:43 | Observation (INO) ==
[2019-11-20 10:07] LABS: Hemoglobin 10.8 g/dL (12.9-16.9); Mean Platelet Volume 11.8 fL (9.4-12.4)
[2019-11-20 10:09] LABS: Hematocrit 37.1 % (37.5-50.1); Mean Corpuscular HGB Conc 29.1 g/dL (31.6-35.5); Mean Corpuscular Hemoglobin 27.9 pg (28.0-33.3); Mean Corpuscular Volume 95.9 fL (83.0-100.0); Platelet Count 950 K/mcL (140-400); Red Blood Count 3.87 M/mcL (4.19-5.50); Red Cell Distribution Width 19.5 % (11.5-14.5); White Blood Count 24.3 K/mcL (4.3-11.1)
[2019-11-20 10:10] LABS: Prothrombin Time 12.1 Seconds (9.4-12.1)
[2019-11-20 10:26] LABS: Albumin/Globulin Ratio 0.9 (1.1-2.2); Bilirubin,Direct 0.1 mg/dL (0.0-0.2); Bilirubin,Indirect 0.3 mg/dL (0.0-1.0); Bilirubin,Total 0.4 mg/dL (0.3-1.0); Calcium 8.8 mg/dL (8.6-10.3); Globulin 3.3 g/dL (2.4-3.5); Potassium 4.6 mEq/L (3.5-5.1); Total Protein 6.3 g/dL (6.4-8.9)
[2019-11-20] MEDS ORDERED: Morphine Sulfate 2 MG/ML SYRINGE IVP STA (11:52)
[2019-11-20] MEDS ORDERED: Ondansetron 4 MG/2 ML VIAL IVP ONE (11:52)
[2019-11-20] MEDS ORDERED: Ertapenem 1,000 MG in 0.9 % Sodium Chloride Mini Bag 100 ML IVPB STA (14:23)
[2019-11-20] MEDS ORDERED: Ondansetron 4 MG/2 ML VIAL IVP PRN (15:24)
[2019-11-20] MEDS ORDERED: Naloxone 0.4 MG/ML INJ IVP PRN (15:24)
[2019-11-20] MEDS ORDERED: Acetaminophen 325 MG TABLET PO PRN (15:24)
[2019-11-20] MEDS ORDERED: 0.9 % Sodium Chloride 1,000 ML IVC ONE (15:31)
[2019-11-20] MEDS ORDERED: *HR* Dextrose 50 % in Water (Vial) 50 ML VIAL IVP PRN (15:31)
[2019-11-20] MEDS ORDERED: Dextrose Gel 15 GM/37.5 ML TUBE PO PRN ×2 (15:31)
[2019-11-20] MEDS ORDERED: Insulin Human Regular 10 UNIT in 0.9 % Sodium Chloride 10 ML IV ONE (15:31)
[2019-11-20] MEDS ORDERED: D5% in Water 1,000 ML IVC PRN (15:31)
[2019-11-20] MEDS ORDERED: Vancomycin 1,750 MG/517.5 ML IV.SOLN IVPB ONE (16:00)
[2019-11-20 17:03] LABS: ABG Base Excess 2 mEq/L (-2 to 3); ABG HCO3 29 mEq/L (21-27); ABG Oxygen Saturation 93 % (95-98); ABG PCO2 58 mmHg (35-45); ABG PH 7.31 pH Units (7.32-7.45); ABG PO2 77 mmHg (85-104); ABG TCO2 31 mEq/L (20-26)
[2019-11-20] MEDS: Insulin LISPRO 300 UNITS/3 ML VIAL SQ SCH (17:20)
[2019-11-20] MEDS ORDERED: Warfarin perPT PO PRN (18:00)
[2019-11-20] MEDS ORDERED: *HR* Warfarin 5 MG TABLET PO ONE (18:00)
[2019-11-20] MEDS: Furosemide 40 MG TABLET PO SCH (18:24)
[2019-11-20] MEDS: Calcium Acetate 667 MG CAPSULE PO SCH (18:24)
[2019-11-20] MEDS: metroNIDAZOLE 500 MG TABLET PO SCH (20:49)
[2019-11-20] MEDS ORDERED: Insulin LISPRO 300 UNITS/3 ML VIAL SQ SCH (21:00)
[2019-11-21 04:46] LABS: Prothrombin Time 12.1 Seconds (9.4-12.1)
[2019-11-21 04:48] LABS: Basophils # 0.1 K/mcL (0.0-0.2); Basophils % 0.5 %; Eosinophils # 1.3 K/mcL (0.0-0.6); Eosinophils % 5.4 %; Hematocrit 34.2 % (37.5-50.1); Hemoglobin 10.1 g/dL (12.9-16.9); Immature Granulocytes % 0.6 % (0-4); Lymphocytes # 2.2 K/mcL (0.6-4.6); Lymphocytes % 9.2 %; Mean Corpuscular HGB Conc 29.5 g/dL (31.6-35.5); Mean Corpuscular Hemoglobin 27.8 pg (28.0-33.3); Mean Corpuscular Volume 94.2 fL (83.0-100.0); Mean Platelet Volume 11.9 fL (9.4-12.4); Monocytes # 2.2 K/mcL (0.0-1.3); Monocytes % 9.4 %; Neutrophils # 17.8 K/mcL (1.6-8.9); Platelet Count 822 K/mcL (140-400); Red Blood Count 3.63 M/mcL (4.19-5.50); Red Cell Distribution Width 19.6 % (11.5-14.5); Segmented Neutrophils % 74.9 %; White Blood Count 23.7 K/mcL (4.3-11.1)
[2019-11-21 05:02] LABS: Albumin 2.6 g/dL (3.5-5.7); Albumin/Globulin Ratio 0.9 (1.1-2.2); Bilirubin,Total 0.3 mg/dL (0.3-1.0); Calcium 8.5 mg/dL (8.6-10.3); Globulin 2.9 g/dL (2.4-3.5); Potassium 4.4 mEq/L (3.5-5.1); Total Protein 5.5 g/dL (6.4-8.9)
[2019-11-21] MEDS ORDERED: 0.9 % Sodium Chloride 250 ML IVC PRN (07:47)
[2019-11-21] MEDS ORDERED: *HR* Heparin 10,000 UNIT/10 ML VIAL IV PRN (07:47)
[2019-11-21] MEDS ORDERED: 0.9 % Sodium Chloride 1,000 ML ONE (07:55)
[2019-11-21] MEDS: metroNIDAZOLE 500 MG TABLET PO SCH (07:57)
[2019-11-21] MEDS: Furosemide 40 MG TABLET PO SCH ×2 (07:57→17:29)
[2019-11-21] MEDS: Calcium Acetate 667 MG CAPSULE PO SCH ×3 (07:58→17:29)
[2019-11-21] MEDS: Insulin LISPRO 300 UNITS/3 ML VIAL SQ SCH ×3 (07:58→15:36)
[2019-11-21] MEDS ORDERED: 0.9 % Sodium Chloride 1,000 ML PRIME SCH (08:00)
[2019-11-21] MEDS ORDERED: allopurinoL 100 MG TABLET PO SCH (09:00)
[2019-11-21] MEDS ORDERED: hydrALAZINE 25 MG TABLET PO SCH (09:00)
[2019-11-21] MEDS ORDERED: Aspirin Enteric Coated 81 MG Tablet PO SCH (09:00)
[2019-11-21] MEDS ORDERED: Metoprolol XL (24 HR) Succ 50 MG TAB.ER.24H PO SCH (09:00)
[2019-11-21] MEDS ORDERED: Folic Acid 1 MG TABLET PO SCH (09:00)
[2019-11-21] MEDS ORDERED: Meropenem 500 MG in 0.9 % Sodium Chloride Mini Bag 100 ML IVPB SCH (15:00)
[2019-11-21] MEDS ORDERED: *HR* Warfarin 5 MG TABLET PO ONE (18:00)
[2019-11-21] MEDS ORDERED: Sennosides 8.6 MG TABLET PO SCH (21:00)
[2019-11-22 00:24] VITALS: BP 140/66
== END 2019-11-21 18:30 | disposition short-term general hospital (02) ==
LOC: EMEROOARM 09:43 → 3NENU 09:43 → SUATTDRO 14:37 → 2ANU 15:14
PROVIDERS: ADMIT Family Medicine; ATTEND Family Medicine

== ENCOUNTER 2019-12-21 16:13 | Inpatient (IN) ==
[2019-12-21] MEDS ORDERED: Ondansetron 4 MG/2 ML VIAL IVP PRN (18:35)
[2019-12-21] MEDS ORDERED: Naloxone 0.4 MG/ML INJ IVP PRN (18:35)
[2019-12-21] MEDS ORDERED: Furosemide 40 MG/4 ML VIAL IVP ONE (18:40)
[2019-12-21] MEDS: Ipratropium/Albuterol Neb 3 ML IH SCH (21:53)
[2019-12-21] MEDS ORDERED: Vancomycin 1 EACH in 0.9 % Sodium Chloride 250 ML IVPB PRN (23:45)
[2019-12-22] MEDS: Ipratropium/Albuterol Neb 3 ML IH SCH ×4 (03:20→22:02)
[2019-12-22 04:13] LABS: ABG Base Excess 0 mEq/L (-2 to 3); ABG HCO3 27 mEq/L (21-27); ABG Oxygen Saturation 95 % (95-98); ABG PCO2 54 mmHg (35-45); ABG PO2 86 mmHg (85-104); ABG TCO2 29 mEq/L (20-26)
[2019-12-22 04:45] LABS: Basophils # 0.1 K/mcL (0.0-0.2); Basophils % 0.4 %; Eosinophils # 0.5 K/mcL (0.0-0.6); Eosinophils % 3.7 %; Hematocrit 28.8 % (37.5-50.1); Hemoglobin 8.5 g/dL (12.9-16.9); Immature Granulocytes % 0.7 % (0-4); Lymphocytes # 2.7 K/mcL (0.6-4.6); Lymphocytes % 21.9 %; Mean Corpuscular HGB Conc 29.5 g/dL (31.6-35.5); Mean Corpuscular Hemoglobin 26.7 pg (28.0-33.3); Mean Corpuscular Volume 90.6 fL (83.0-100.0); Mean Platelet Volume 12.2 fL (9.4-12.4); Monocytes # 1.6 K/mcL (0.0-1.3); Monocytes % 12.8 %; Neutrophils # 7.4 K/mcL (1.6-8.9); Nucleated Red Blood Cells 1.8 /100 WBC (0); Platelet Count 523 K/mcL (140-400); Red Blood Count 3.18 M/mcL (4.19-5.50); Red Cell Distribution Width 17.7 % (11.5-14.5); Segmented Neutrophils % 60.5 %; White Blood Count 12.3 K/mcL (4.3-11.1)
[2019-12-22 04:55] LABS: Prothrombin Time 66.4 Seconds (9.4-12.1)
[2019-12-22 05:01] LABS: Calcium 7.3 mg/dL (8.6-10.3); Potassium 4.7 mEq/L (3.5-5.1)
[2019-12-22] MEDS: Meropenem 500 MG in Water for inj. (sterile) 10 ML IVP SCH (05:56)
[2019-12-22] MEDS ORDERED: NON-FORMULARY MEDICATION 1 EACH EACH (Ezetimibe [Zetia] 10 MG) PO SCH (09:00)
[2019-12-22] MEDS: Metoprolol XL (24 HR) Succ 50 MG TAB.ER.24H PO SCH (10:04)
[2019-12-22] MEDS ORDERED: 0.9 % Sodium Chloride 250 ML IVC PRN (15:42)
[2019-12-22] MEDS ORDERED: 0.9 % Sodium Chloride 1,000 ML PRIME SCH (15:45)
[2019-12-22] MEDS ORDERED: Acetaminophen 325 MG TABLET PO PRN (17:07)
[2019-12-22] MEDS ORDERED: *HR* Dextrose 50 % in Water (Vial) 50 ML VIAL IVP PRN (17:08)
[2019-12-22] MEDS ORDERED: D5% in Water 1,000 ML IVC PRN (17:08)
[2019-12-22] MEDS ORDERED: Dextrose Gel 15 GM/37.5 ML TUBE PO PRN ×2 (17:08)
[2019-12-22] MEDS ORDERED: Warfarin perPT PO PRN (18:00)
[2019-12-22] MEDS: Insulin LISPRO 300 UNITS/3 ML VIAL SQ SCH (21:03)
[2019-12-22] MEDS: Carbamide Peroxide 150 DROP/15 ML BOTTLE BOTH EARS SCH (21:20)
[2019-12-22] MEDS: Sennosides 8.6 MG TABLET PO SCH (21:20)
[2019-12-22] MEDS: *HR* OxyCODONE Immed Rel 5 MG TABLET PO PRN (21:20)
[2019-12-23] MEDS: Ipratropium/Albuterol Neb 3 ML IH SCH ×4 (03:24→22:14)
[2019-12-23 04:26] LABS: VBG HCO3 28 mEq/L (21-27); VBG PCO2 60 mmHg (41-51); VBG PH 7.27 pH Units (7.32-7.42); VBG PO2 101 mmHg (25-50)
[2019-12-23 04:32] LABS: Basophils # 0.1 K/mcL (0.0-0.2); Basophils % 0.5 %; Eosinophils # 0.9 K/mcL (0.0-0.6); Eosinophils % 5.5 %; Hematocrit 27.5 % (37.5-50.1); Hemoglobin 8.2 g/dL (12.9-16.9); Immature Granulocytes % 0.8 % (0-4); Lymphocytes # 4.1 K/mcL (0.6-4.6); Lymphocytes % 25.7 %; Mean Corpuscular HGB Conc 29.8 g/dL (31.6-35.5); Mean Corpuscular Hemoglobin 27.1 pg (28.0-33.3); Mean Corpuscular Volume 90.8 fL (83.0-100.0); Mean Platelet Volume 12.2 fL (9.4-12.4); Monocytes # 2.2 K/mcL (0.0-1.3); Monocytes % 14.1 %; Neutrophils # 8.5 K/mcL (1.6-8.9); Nucleated Red Blood Cells 2.5 /100 WBC (0); Platelet Count 527 K/mcL (140-400); Red Blood Count 3.03 M/mcL (4.19-5.50); Segmented Neutrophils % 53.4 %; White Blood Count 15.9 K/mcL (4.3-11.1)
[2019-12-23 04:42] LABS: INR 4.6; Prothrombin Time 50.6 Seconds (9.4-12.1)
[2019-12-23 04:45] LABS: Calcium 7.1 mg/dL (8.6-10.3); Potassium 4.6 mEq/L (3.5-5.1)
[2019-12-23] MEDS: Meropenem 500 MG in Water for inj. (sterile) 10 ML IVP SCH (05:51)
[2019-12-23] MEDS: Insulin LISPRO 300 UNITS/3 ML VIAL SQ SCH ×4 (07:27→20:18)
[2019-12-23] MEDS: Renal Vitamin 1 CAP CAPSULE PO SCH (07:34)
[2019-12-23] MEDS: Calcium Acetate 667 MG CAPSULE PO SCH ×3 (07:35→16:26)
[2019-12-23] MEDS: Aspirin Enteric Coated 81 MG Tablet PO SCH (07:36)
[2019-12-23] MEDS: polyethylene glycoL 3350 17 GM POWD.PACK PO SCH (07:37)
[2019-12-23] MEDS: Saline Nasal Spray 44 ML BOTTLE NS SCH (07:38)
[2019-12-23] MEDS: Carbamide Peroxide 150 DROP/15 ML BOTTLE BOTH EARS SCH ×2 (07:38→20:18)
[2019-12-23] MEDS: Metoprolol XL (24 HR) Succ 50 MG TAB.ER.24H PO SCH (07:39)
[2019-12-23] MEDS: *HR* OxyCODONE Immed Rel 5 MG TABLET PO PRN ×2 (07:46→17:59)
[2019-12-23] MEDS: Sennosides 8.6 MG TABLET PO SCH ×2 (07:54→20:17)
[2019-12-24] MEDS: Ipratropium/Albuterol Neb 3 ML IH SCH ×4 (03:56→22:00)
[2019-12-24 04:21] LABS: Basophils # 0.1 K/mcL (0.0-0.2); Basophils % 0.6 %; Eosinophils # 1.1 K/mcL (0.0-0.6); Eosinophils % 7.3 %; Hematocrit 26.9 % (37.5-50.1); Hemoglobin 7.8 g/dL (12.9-16.9); Immature Granulocytes % 0.8 % (0-4); Lymphocytes # 2.8 K/mcL (0.6-4.6); Mean Corpuscular Hemoglobin 26.7 pg (28.0-33.3); Mean Corpuscular Volume 92.1 fL (83.0-100.0); Monocytes # 2.2 K/mcL (0.0-1.3); Monocytes % 14.5 %; Neutrophils # 9.1 K/mcL (1.6-8.9); Nucleated Red Blood Cells 2.1 /100 WBC (0); Platelet Count 474 K/mcL (140-400); Red Blood Count 2.92 M/mcL (4.19-5.50); Red Cell Distribution Width 18.2 % (11.5-14.5); Segmented Neutrophils % 58.8 %; White Blood Count 15.5 K/mcL (4.3-11.1)
[2019-12-24 04:22] LABS: INR 2.7; Prothrombin Time 30.4 Seconds (9.4-12.1)
[2019-12-24 04:37] LABS: Calcium 7.1 mg/dL (8.6-10.3); Potassium 3.9 mEq/L (3.5-5.1)
[2019-12-24 05:09] LABS: VBG HCO3 31 mEq/L (21-27); VBG PCO2 63 mmHg (41-51); VBG PH 7.29 pH Units (7.32-7.42); VBG PO2 139 mmHg (25-50)
[2019-12-24] MEDS: Meropenem 500 MG in Water for inj. (sterile) 10 ML IVP SCH (06:04)
[2019-12-24] MEDS: *HR* OxyCODONE Immed Rel 5 MG TABLET PO PRN (06:07)
[2019-12-24] MEDS: Insulin LISPRO 300 UNITS/3 ML VIAL SQ SCH ×4 (08:27→21:10)
[2019-12-24] MEDS: Carbamide Peroxide 150 DROP/15 ML BOTTLE BOTH EARS SCH ×2 (08:27→21:51)
[2019-12-24] MEDS: Saline Nasal Spray 44 ML BOTTLE NS SCH (08:27)
[2019-12-24] MEDS: Renal Vitamin 1 CAP CAPSULE PO SCH (08:27)
[2019-12-24] MEDS: Aspirin Enteric Coated 81 MG Tablet PO SCH (08:28)
[2019-12-24] MEDS: Metoprolol XL (24 HR) Succ 50 MG TAB.ER.24H PO SCH (08:28)
[2019-12-24] MEDS: polyethylene glycoL 3350 17 GM POWD.PACK PO SCH (08:28)
[2019-12-24] MEDS: Calcium Acetate 667 MG CAPSULE PO SCH ×3 (08:28→16:46)
[2019-12-24] MEDS: Sennosides 8.6 MG TABLET PO SCH ×2 (08:29→21:51)
[2019-12-24 11:13] LABS: ABG Base Excess 2 mEq/L (-2 to 3); ABG HCO3 30 mEq/L (21-27); ABG Oxygen Saturation 96 % (95-98); ABG PCO2 66 mmHg (35-45); ABG PH 7.26 pH Units (7.32-7.45); ABG PO2 94 mmHg (85-104); ABG TCO2 32 mEq/L (20-26); Blood Gas Modality ASSIST CONTROL; Blood Gas VT 473 cc
[2019-12-24] MEDS ORDERED: *HR* Warfarin 3 MG TABLET PO ONE (18:00)
[2019-12-24 20:06] LABS: VBG HCO3 31 mEq/L (21-27); VBG PCO2 65 mmHg (41-51); VBG PH 7.29 pH Units (7.32-7.42); VBG PO2 166 mmHg (25-50)
[2019-12-25] MEDS: Ipratropium/Albuterol Neb 3 ML IH SCH ×4 (03:45→21:37)
[2019-12-25 04:05] LABS: Basophils % 0.6 %; Red Cell Distribution Width 18.3 % (11.5-14.5)
[2019-12-25 04:06] LABS: Basophils # 0.1 K/mcL (0.0-0.2); Eosinophils # 1.3 K/mcL (0.0-0.6); Eosinophils % 9.3 %; Hematocrit 25.1 % (37.5-50.1); Hemoglobin 7.3 g/dL (12.9-16.9); Immature Granulocytes % 0.6 % (0-4); Lymphocytes # 2.6 K/mcL (0.6-4.6); Lymphocytes % 18.7 %; Mean Corpuscular HGB Conc 29.1 g/dL (31.6-35.5); Mean Corpuscular Hemoglobin 27.1 pg (28.0-33.3); Mean Corpuscular Volume 93.3 fL (83.0-100.0); Monocytes # 1.9 K/mcL (0.0-1.3); Monocytes % 13.7 %; Platelet Count 481 K/mcL (140-400); Red Blood Count 2.69 M/mcL (4.19-5.50); Segmented Neutrophils % 57.1 %
[2019-12-25 04:09] LABS: VBG HCO3 31 mEq/L (21-27); VBG PCO2 67 mmHg (41-51); VBG PH 7.27 pH Units (7.32-7.42); VBG PO2 122 mmHg (25-50)
[2019-12-25 04:09] LABS: INR 2.1; Prothrombin Time 24.1 Seconds (9.4-12.1)
[2019-12-25 04:36] LABS: Calcium 7.1 mg/dL (8.6-10.3); Potassium 4.2 mEq/L (3.5-5.1)
[2019-12-25 05:39] LABS: Anisocytosis 2+ (Not Present)
[2019-12-25 05:40] LABS: Hypochromasia Present (Not Present); Poikilocytosis 1+ (Not Present); Polychromasia 1+ (Not Present)
[2019-12-25 05:41] LABS: Basophilic Stippling 1+ (Not Present)
[2019-12-25] MEDS: Meropenem 500 MG in Water for inj. (sterile) 10 ML IVP SCH (05:42)
[2019-12-25] MEDS: *HR* OxyCODONE Immed Rel 5 MG TABLET PO PRN ×2 (06:09→15:27)
[2019-12-25] MEDS: polyethylene glycoL 3350 17 GM POWD.PACK PO SCH (09:28)
[2019-12-25] MEDS: Saline Nasal Spray 44 ML BOTTLE NS SCH (09:28)
[2019-12-25] MEDS: Carbamide Peroxide 150 DROP/15 ML BOTTLE BOTH EARS SCH ×2 (09:28→21:00)
[2019-12-25] MEDS: Sennosides 8.6 MG TABLET PO SCH ×2 (09:28→20:58)
[2019-12-25] MEDS: Metoprolol XL (24 HR) Succ 50 MG TAB.ER.24H PO SCH (09:29)
[2019-12-25] MEDS: Aspirin Enteric Coated 81 MG Tablet PO SCH (09:29)
[2019-12-25] MEDS: Calcium Acetate 667 MG CAPSULE PO SCH ×3 (09:29→16:57)
[2019-12-25] MEDS: Insulin LISPRO 300 UNITS/3 ML VIAL SQ SCH ×4 (09:30→20:43)
[2019-12-25] MEDS: Renal Vitamin 1 CAP CAPSULE PO SCH (09:31)
[2019-12-25] MEDS ORDERED: *HR* Warfarin 3 MG TABLET PO ONE (18:00)
[2019-12-26] MEDS: Ipratropium/Albuterol Neb 3 ML IH SCH ×4 (03:33→22:10)
[2019-12-26 03:56] LABS: Basophils # 0.1 K/mcL (0.0-0.2); Basophils % 0.5 %; Eosinophils # 1.3 K/mcL (0.0-0.6); Eosinophils % 8.3 %; Hematocrit 22.3 % (37.5-50.1); Hemoglobin 6.5 g/dL (12.9-16.9); Immature Granulocytes % 0.7 % (0-4); Lymphocytes # 3.6 K/mcL (0.6-4.6); Lymphocytes % 23.1 %; Mean Corpuscular HGB Conc 29.1 g/dL (31.6-35.5); Mean Corpuscular Hemoglobin 27.1 pg (28.0-33.3); Mean Corpuscular Volume 92.9 fL (83.0-100.0); Mean Platelet Volume 12.2 fL (9.4-12.4); Monocytes # 1.8 K/mcL (0.0-1.3); Monocytes % 11.6 %; Neutrophils # 8.6 K/mcL (1.6-8.9); Platelet Count 466 K/mcL (140-400); Red Cell Distribution Width 18.9 % (11.5-14.5); Segmented Neutrophils % 55.8 %; White Blood Count 15.4 K/mcL (4.3-11.1)
[2019-12-26 03:59] LABS: INR 2.4; Prothrombin Time 27.5 Seconds (9.4-12.1)
[2019-12-26 04:01] LABS: VBG HCO3 31 mEq/L (21-27); VBG PCO2 67 mmHg (41-51); VBG PH 7.27 pH Units (7.32-7.42); VBG PO2 122 mmHg (25-50)
[2019-12-26 04:13] LABS: Calcium 7.3 mg/dL (8.6-10.3); Potassium 4.6 mEq/L (3.5-5.1)
[2019-12-26] MEDS: *HR* OxyCODONE Immed Rel 5 MG TABLET PO PRN ×2 (06:28→16:12)
[2019-12-26] MEDS: Meropenem 500 MG in Water for inj. (sterile) 10 ML IVP SCH (06:31)
[2019-12-26] MEDS ORDERED: 0.9 % Sodium Chloride 250 ML IVC PRN (07:09)
[2019-12-26] MEDS ORDERED: 0.9 % Sodium Chloride 1,000 ML PRIME SCH (07:15)
[2019-12-26] MEDS: Aspirin Enteric Coated 81 MG Tablet PO SCH (07:37)
[2019-12-26] MEDS: Renal Vitamin 1 CAP CAPSULE PO SCH (07:37)
[2019-12-26] MEDS: Calcium Acetate 667 MG CAPSULE PO SCH ×3 (07:37→17:30)
[2019-12-26] MEDS: polyethylene glycoL 3350 17 GM POWD.PACK PO SCH (07:38)
[2019-12-26] MEDS: Saline Nasal Spray 44 ML BOTTLE NS SCH (07:38)
[2019-12-26] MEDS: Insulin LISPRO 300 UNITS/3 ML VIAL SQ SCH ×4 (07:38→19:44)
[2019-12-26] MEDS: Carbamide Peroxide 150 DROP/15 ML BOTTLE BOTH EARS SCH ×2 (07:38→19:43)
[2019-12-26] MEDS: Sennosides 8.6 MG TABLET PO SCH ×2 (07:39→19:43)
[2019-12-26] MEDS ORDERED: 0.9 % Sodium Chloride 250 ML ONE (10:53)
[2019-12-26] MEDS ORDERED: Vancomycin 500 MG in 0.9 % Sodium Chloride Mini Bag 100 ML IVPB ONE (16:00)
[2019-12-26 16:51] LABS: Hematocrit 23.4 % (37.5-50.1); Hemoglobin 7.1 g/dL (12.9-16.9)
[2019-12-26] MEDS: Metoprolol XL (24 HR) Succ 50 MG TAB.ER.24H PO SCH (17:01)
[2019-12-26] MEDS ORDERED: *HR* Warfarin 2 MG TABLET PO ONE (18:00)
[2019-12-26] MEDS: Insulin DETEMIR 100 UNIT/ML X5UNITS SQ SCH (19:43)
[2019-12-27 03:31] LABS: Basophils # 0.1 K/mcL (0.0-0.2); Basophils % 0.5 %; Eosinophils # 0.8 K/mcL (0.0-0.6); Eosinophils % 5.7 %; Hematocrit 21.6 % (37.5-50.1); Hemoglobin 6.4 g/dL (12.9-16.9); Immature Granulocytes % 0.7 % (0-4); Lymphocytes # 2.5 K/mcL (0.6-4.6); Mean Corpuscular HGB Conc 29.6 g/dL (31.6-35.5); Mean Corpuscular Hemoglobin 27.8 pg (28.0-33.3); Mean Corpuscular Volume 93.9 fL (83.0-100.0); Monocytes # 1.1 K/mcL (0.0-1.3); Monocytes % 7.6 %; Neutrophils # 10.2 K/mcL (1.6-8.9); Nucleated Red Blood Cells 2.2 /100 WBC (0); Platelet Count 373 K/mcL (140-400); Red Cell Distribution Width 20.6 % (11.5-14.5); Segmented Neutrophils % 68.5 %; White Blood Count 14.8 K/mcL (4.3-11.1)
[2019-12-27] MEDS: *HR* OxyCODONE Immed Rel 5 MG TABLET PO PRN ×2 (03:32→17:09)
[2019-12-27 03:39] LABS: INR 1.9; Prothrombin Time 22.1 Seconds (9.4-12.1)
[2019-12-27 03:40] LABS: VBG HCO3 31 mEq/L (21-27); VBG PCO2 59 mmHg (41-51); VBG PH 7.34 pH Units (7.32-7.42); VBG PO2 140 mmHg (25-50)
[2019-12-27] MEDS: Ipratropium/Albuterol Neb 3 ML IH SCH ×4 (03:45→21:43)
[2019-12-27 03:51] LABS: Potassium 3.9 mEq/L (3.5-5.1)
[2019-12-27] MEDS: Meropenem 500 MG in Water for inj. (sterile) 10 ML IVP SCH (05:38)
[2019-12-27] MEDS: Aspirin Enteric Coated 81 MG Tablet PO SCH (07:45)
[2019-12-27] MEDS ORDERED: 0.9 % Sodium Chloride 250 ML IVC SCH (07:45)
[2019-12-27] MEDS: Metoprolol XL (24 HR) Succ 50 MG TAB.ER.24H PO SCH (07:45)
[2019-12-27] MEDS: Renal Vitamin 1 CAP CAPSULE PO SCH (07:46)
[2019-12-27] MEDS: Calcium Acetate 667 MG CAPSULE PO SCH ×3 (07:46→17:09)
[2019-12-27] MEDS: Insulin LISPRO 300 UNITS/3 ML VIAL SQ SCH ×4 (07:46→20:47)
[2019-12-27] MEDS: polyethylene glycoL 3350 17 GM POWD.PACK PO SCH (07:46)
[2019-12-27] MEDS: Sennosides 8.6 MG TABLET PO SCH ×2 (07:46→20:46)
[2019-12-27] MEDS: Carbamide Peroxide 150 DROP/15 ML BOTTLE BOTH EARS SCH ×2 (07:49→20:47)
[2019-12-27] MEDS: Saline Nasal Spray 44 ML BOTTLE NS SCH (07:50)
[2019-12-27 13:13] LABS: Folate 13.1 ng/mL (3.0-16.0)
[2019-12-27] MEDS: Pantoprazole 40 MG VIAL IVP SCH ×2 (15:00→17:09)
[2019-12-27] MEDS: Insulin DETEMIR 100 UNIT/ML X5UNITS SQ SCH (20:47)
[2019-12-27 21:25] LABS: Hematocrit 25.1 % (37.5-50.1); Hemoglobin 7.5 g/dL (12.9-16.9)
[2019-12-28] MEDS: Ipratropium/Albuterol Neb 3 ML IH SCH ×4 (03:31→22:21)
[2019-12-28 04:40] LABS: INR 1.7; Prothrombin Time 19.2 Seconds (9.4-12.1)
[2019-12-28 04:55] LABS: Calcium 7.3 mg/dL (8.6-10.3); Potassium 4.5 mEq/L (3.5-5.1)
[2019-12-28 05:34] LABS: Basophils # 0.1 K/mcL (0.0-0.2); Basophils % 0.6 %; Eosinophils # 1.4 K/mcL (0.0-0.6); Eosinophils % 8.5 %; Hemoglobin 7.8 g/dL (12.9-16.9); Immature Granulocytes % 0.7 % (0-4); Lymphocytes # 3.1 K/mcL (0.6-4.6); Mean Corpuscular Hemoglobin 27.5 pg (28.0-33.3); Mean Corpuscular Volume 91.5 fL (83.0-100.0); Mean Platelet Volume 12.2 fL (9.4-12.4); Monocytes # 1.6 K/mcL (0.0-1.3); Monocytes % 9.6 %; Nucleated Red Blood Cells 2.1 /100 WBC (0); Platelet Count 326 K/mcL (140-400); Red Blood Count 2.84 M/mcL (4.19-5.50); Red Cell Distribution Width 19.2 % (11.5-14.5); Segmented Neutrophils % 61.6 %; White Blood Count 16.3 K/mcL (4.3-11.1)
[2019-12-28 05:43] LABS: VBG HCO3 32 mEq/L (21-27); VBG PCO2 73 mmHg (41-51); VBG PH 7.25 pH Units (7.32-7.42); VBG PO2 143 mmHg (25-50)
[2019-12-28] MEDS: Meropenem 500 MG in Water for inj. (sterile) 10 ML IVP SCH (06:23)
[2019-12-28] MEDS: Pantoprazole 40 MG VIAL IVP SCH ×2 (06:24→18:55)
[2019-12-28] MEDS ORDERED: 0.9 % Sodium Chloride 250 ML IVC PRN (07:15)
[2019-12-28] MEDS: Sennosides 8.6 MG TABLET PO SCH ×2 (08:28→20:50)
[2019-12-28] MEDS: Renal Vitamin 1 CAP CAPSULE PO SCH (08:28)
[2019-12-28] MEDS: Calcium Acetate 667 MG CAPSULE PO SCH ×3 (08:29→18:41)
[2019-12-28] MEDS: polyethylene glycoL 3350 17 GM POWD.PACK PO SCH (08:29)
[2019-12-28] MEDS: Insulin LISPRO 300 UNITS/3 ML VIAL SQ SCH ×4 (08:31→20:45)
[2019-12-28] MEDS: Carbamide Peroxide 150 DROP/15 ML BOTTLE BOTH EARS SCH ×2 (08:32→20:50)
[2019-12-28] MEDS: Saline Nasal Spray 44 ML BOTTLE NS SCH (08:32)
[2019-12-28] MEDS: Metoprolol XL (24 HR) Succ 50 MG TAB.ER.24H PO SCH (11:49)
[2019-12-28] MEDS: *HR* OxyCODONE Immed Rel 5 MG TABLET PO PRN ×2 (13:08→20:56)
[2019-12-28 17:58] LABS: Adenovirus Not Detected (Not Detect); Bordetella Pertussis Not Detected (Not Detect); Chlamydophila pneumoniae Not Detected (Not Detect); Coronavirus 229E Not Detected (Not Detect); Coronavirus HKU1 Not Detected (Not Detect); Coronavirus NL63 Not Detected (Not Detect); Coronavirus OC43 Not Detected (Not Detect); Human Metapneumovirus Not Detected (Not Detect); Human Rhinovirus/Enterovirus Not Detected (Not Detect); Influenza A Subtype 2009 H1 Not Detected (Not Detect); Influenza B Not Detected (Not Detect); Mycoplasma pneumoniae Not Detected (Not Detect); Parainfluenza Virus 1 Not Detected (Not Detect); Parainfluenza Virus 2 Not Detected (Not Detect); Parainfluenza Virus 3 Not Detected (Not Detect); Parainfluenza Virus 4 Not Detected (Not Detect); Respiratory Syncytial Virus Not Detected (Not Detect); SARS-CoV-2 Not Detected (Not Detect)
[2019-12-28] MEDS: Insulin DETEMIR 100 UNIT/ML X5UNITS SQ SCH (20:50)
[2019-12-29] MEDS: Ipratropium/Albuterol Neb 3 ML IH SCH ×4 (03:56→22:42)
[2019-12-29 04:12] LABS: INR 1.5; Prothrombin Time 17.4 Seconds (9.4-12.1)
[2019-12-29 04:33] LABS: Potassium 3.8 mEq/L (3.5-5.1)
[2019-12-29] MEDS: Pantoprazole 40 MG VIAL IVP SCH ×2 (05:55→18:41)
[2019-12-29] MEDS: Meropenem 500 MG in Water for inj. (sterile) 10 ML IVP SCH (05:55)
[2019-12-29] MEDS: Calcium Acetate 667 MG CAPSULE PO SCH ×3 (07:25→16:49)
[2019-12-29] MEDS: Insulin LISPRO 300 UNITS/3 ML VIAL SQ SCH ×4 (07:25→19:31)
[2019-12-29] MEDS: polyethylene glycoL 3350 17 GM POWD.PACK PO SCH (07:26)
[2019-12-29] MEDS: Sennosides 8.6 MG TABLET PO SCH ×2 (07:27→19:36)
[2019-12-29] MEDS: Renal Vitamin 1 CAP CAPSULE PO SCH (07:27)
[2019-12-29] MEDS: Metoprolol XL (24 HR) Succ 50 MG TAB.ER.24H PO SCH (08:27)
[2019-12-29] MEDS: Saline Nasal Spray 44 ML BOTTLE NS SCH (08:28)
[2019-12-29] MEDS: Carbamide Peroxide 150 DROP/15 ML BOTTLE BOTH EARS SCH ×2 (08:28→19:31)
[2019-12-29 11:16] LABS: Basophils # 0.1 K/mcL (0.0-0.2); Basophils % 0.5 %; Eosinophils % 6.3 %; Hematocrit 28.4 % (37.5-50.1); Hemoglobin 8.5 g/dL (12.9-16.9); Immature Granulocytes % 0.5 % (0-4); Lymphocytes # 1.4 K/mcL (0.6-4.6); Lymphocytes % 9.5 %; Mean Corpuscular HGB Conc 29.9 g/dL (31.6-35.5); Mean Corpuscular Volume 93.4 fL (83.0-100.0); Mean Platelet Volume 12.7 fL (9.4-12.4); Monocytes % 6.5 %; Neutrophils # 11.7 K/mcL (1.6-8.9); Nucleated Red Blood Cells 1.5 /100 WBC (0); Platelet Count 331 K/mcL (140-400); Red Blood Count 3.04 M/mcL (4.19-5.50); Red Cell Distribution Width 18.9 % (11.5-14.5); Segmented Neutrophils % 76.7 %; White Blood Count 15.2 K/mcL (4.3-11.1)
[2019-12-29] MEDS: Insulin DETEMIR 100 UNIT/ML X5UNITS SQ SCH (19:31)
[2019-12-29] MEDS: *HR* OxyCODONE Immed Rel 5 MG TABLET PO PRN (19:48)
[2019-12-30 03:33] LABS: Basophils # 0.1 K/mcL (0.0-0.2); Basophils % 0.4 %; Eosinophils % 6.6 %; Hematocrit 27.5 % (37.5-50.1); Hemoglobin 8.3 g/dL (12.9-16.9); Immature Granulocytes % 0.4 % (0-4); Lymphocytes # 1.6 K/mcL (0.6-4.6); Lymphocytes % 10.5 %; Mean Corpuscular HGB Conc 30.2 g/dL (31.6-35.5); Mean Corpuscular Hemoglobin 27.8 pg (28.0-33.3); Mean Platelet Volume 12.7 fL (9.4-12.4); Monocytes % 6.5 %; Neutrophils # 11.6 K/mcL (1.6-8.9); Platelet Count 375 K/mcL (140-400); Red Blood Count 2.99 M/mcL (4.19-5.50); Red Cell Distribution Width 18.1 % (11.5-14.5); Segmented Neutrophils % 75.6 %; White Blood Count 15.3 K/mcL (4.3-11.1)
[2019-12-30 03:52] LABS: Calcium 7.1 mg/dL (8.6-10.3); Potassium 3.8 mEq/L (3.5-5.1)
[2019-12-30] MEDS: Ipratropium/Albuterol Neb 3 ML IH SCH ×4 (04:16→23:22)
[2019-12-30] MEDS: Pantoprazole 40 MG VIAL IVP SCH (04:57)
[2019-12-30] MEDS: Meropenem 500 MG in Water for inj. (sterile) 10 ML IVP SCH (04:57)
[2019-12-30] MEDS ORDERED: 0.9 % Sodium Chloride 250 ML IVC PRN (07:01)
[2019-12-30] MEDS ORDERED: 0.9 % Sodium Chloride 1,000 ML PRIME SCH (07:15)
[2019-12-30] MEDS: Insulin LISPRO 300 UNITS/3 ML VIAL SQ SCH ×4 (08:33→22:10)
[2019-12-30] MEDS: Calcium Acetate 667 MG CAPSULE PO SCH ×3 (08:40→16:18)
[2019-12-30] MEDS: Carbamide Peroxide 150 DROP/15 ML BOTTLE BOTH EARS SCH ×2 (08:40→22:03)
[2019-12-30] MEDS: polyethylene glycoL 3350 17 GM POWD.PACK PO SCH (08:41)
[2019-12-30] MEDS: Saline Nasal Spray 44 ML BOTTLE NS SCH (08:41)
[2019-12-30] MEDS: Renal Vitamin 1 CAP CAPSULE PO SCH (08:41)
[2019-12-30] MEDS: Metoprolol XL (24 HR) Succ 50 MG TAB.ER.24H PO SCH (08:42)
[2019-12-30] MEDS: Sennosides 8.6 MG TABLET PO SCH ×2 (08:42→22:09)
[2019-12-30] MEDS ORDERED: *HR* Propofol 200 MG/20 ML VIAL IVP ONE (13:22)
[2019-12-30 15:39] LABS: INR 1.8
[2019-12-30] MEDS: Sucralfate 1 GM TABLET PO SCH (16:18)
[2019-12-30] MEDS ORDERED: Warfarin perPT PO PRN (18:00)
[2019-12-30] MEDS ORDERED: *HR* Warfarin 1 MG TABLET PO SCH (18:00)
[2019-12-30] MEDS: Insulin DETEMIR 100 UNIT/ML X5UNITS SQ SCH (22:09)
[2019-12-30] MEDS: *HR* OxyCODONE Immed Rel 5 MG TABLET PO PRN (22:20)
[2019-12-30 23:23] LABS: Bacteria,Urine Moderate per hpf (None-Few); Bilirubin,Urine Negative (Negative); Blood,Urine Large (Negative); Budding Yeast,Urine Many per hpf (None Seen); Clarity,Urine Ex.Turbid (Clear); Color,Urine Dark-Yellow (Yellow); Glucose,Urine (UA) Normal (Normal); Ketones,Urine Negative (Negative); Leukocyte Esterase,Urine Large (Negative); Nitrite,Urine Negative (Negative); Protein,Urine >=600 mg/dL (Neg-Trace); RBC,Urine TNTC per hpf (0-3); Specific Gravity,Urine 1.024 (1.010-1.025); Urobilinogen,Urine Normal (Normal); WBC,Urine TNTC per hpf (0-3)
[2019-12-31] MEDS: Ipratropium/Albuterol Neb 3 ML IH SCH ×2 (03:55→09:37)
[2019-12-31 04:42] LABS: INR 1.4; Prothrombin Time 16.1 Seconds (9.4-12.1)
[2019-12-31 04:47] LABS: Basophils # 0.1 K/mcL (0.0-0.2); Basophils % 0.6 %; Eosinophils # 0.9 K/mcL (0.0-0.6); Hematocrit 25.7 % (37.5-50.1); Hemoglobin 7.8 g/dL (12.9-16.9); Immature Granulocytes % 0.4 % (0-4); Lymphocytes # 2.2 K/mcL (0.6-4.6); Lymphocytes % 17.8 %; Mean Corpuscular HGB Conc 30.4 g/dL (31.6-35.5); Mean Corpuscular Hemoglobin 28.2 pg (28.0-33.3); Mean Corpuscular Volume 92.8 fL (83.0-100.0); Mean Platelet Volume 12.7 fL (9.4-12.4); Monocytes # 1.3 K/mcL (0.0-1.3); Monocytes % 10.5 %; Neutrophils # 7.8 K/mcL (1.6-8.9); Nucleated Red Blood Cells 1.1 /100 WBC (0); Platelet Count 379 K/mcL (140-400); Red Blood Count 2.77 M/mcL (4.19-5.50); Red Cell Distribution Width 18.1 % (11.5-14.5); Segmented Neutrophils % 63.7 %; White Blood Count 12.3 K/mcL (4.3-11.1)
[2019-12-31 04:59] LABS: Calcium 6.9 mg/dL (8.6-10.3); Potassium 3.8 mEq/L (3.5-5.1)
[2019-12-31] MEDS: Meropenem 500 MG in Water for inj. (sterile) 10 ML IVP SCH (05:34)
[2019-12-31] MEDS: Renal Vitamin 1 CAP CAPSULE PO SCH (09:09)
[2019-12-31] MEDS: Aspirin Enteric Coated 81 MG Tablet PO SCH (09:09)
[2019-12-31] MEDS: Sennosides 8.6 MG TABLET PO SCH (09:09)
[2019-12-31] MEDS: Metoprolol XL (24 HR) Succ 50 MG TAB.ER.24H PO SCH (09:09)
[2019-12-31] MEDS: Calcium Acetate 667 MG CAPSULE PO SCH ×3 (09:09→13:10)
[2019-12-31] MEDS: polyethylene glycoL 3350 17 GM POWD.PACK PO SCH (09:11)
[2019-12-31] MEDS: Saline Nasal Spray 44 ML BOTTLE NS SCH (09:14)
[2019-12-31] MEDS: Carbamide Peroxide 150 DROP/15 ML BOTTLE BOTH EARS SCH (09:16)
[2019-12-31] MEDS: Insulin LISPRO 300 UNITS/3 ML VIAL SQ SCH ×2 (09:17→13:02)
[2019-12-31] MEDS: Sucralfate 1 GM TABLET PO SCH (09:41)
[2019-12-31] MEDS: *HR* OxyCODONE Immed Rel 5 MG TABLET PO PRN (09:41)
[2019-12-31 11:24] VITALS: BP 129/66
[2019-12-31] MEDS ORDERED: *HR* Warfarin 2 MG TABLET PO ONE (18:00)
== END 2019-12-31 14:58 | DRG 52 ==
LOC: 2ANU → SUATTDRO 12-22 13:43
PROVIDERS: ADMIT Internal Medicine; ATTEND General Practice
PROC: ENDOEBX (2019-12-30 08:45)

== ENCOUNTER 2020-02-06 11:37 | Observation (INO) ==
[2020-02-06] MEDS ORDERED: *HR* FentaNYL (PF) 100 MCG/2 ML VIAL IVP ONE (11:59)
[2020-02-06 12:19] LABS: Hematocrit 45.1 % (37.5-50.1); Mean Platelet Volume 13.6 fL (9.4-12.4)
[2020-02-06 12:20] LABS: Basophils # 0.2 K/mcL (0.0-0.2); Immature Platelets 11.5 % (1.1-6.1); Mean Corpuscular HGB Conc 28.8 g/dL (31.6-35.5); Mean Corpuscular Hemoglobin 26.2 pg (28.0-33.3); Mean Corpuscular Volume 90.9 fL (83.0-100.0); Nucleated Red Blood Cells 0.1 /100 WBC (0); Platelet Count 661 K/mcL (140-400); Red Blood Count 4.96 M/mcL (4.19-5.50); Red Cell Distribution Width 18.2 % (11.5-14.5); White Blood Count 19.9 K/mcL (4.3-11.1)
[2020-02-06 12:22] LABS: Bilirubin,Urine Negative (Negative); Blood,Urine Large (Negative); Clarity,Urine Turbid (Clear); Color,Urine Yellow (Yellow); Glucose,Urine (UA) Normal (Normal); Ketones,Urine Negative (Negative); Leukocyte Esterase,Urine Large (Negative); Nitrite,Urine Negative (Negative); PH,Urine 6.5 pH Units (5.0-8.0); Protein,Urine >=300 mg/dL (Neg-Trace); RBC,Urine 30-50 per hpf (0-3); Specific Gravity,Urine 1.015 (1.010-1.025); Urobilinogen,Urine Normal (Normal); WBC,Urine TNTC per hpf (0-3)
[2020-02-06 12:26] LABS: INR 7.2; Prothrombin Time 78.4 Seconds (9.4-12.1)
[2020-02-06 12:44] LABS: Eosinophils # 0.8 K/mcL (0.0-0.6); Large Platelets Present (Not Present); Lymphocytes # 7.2 K/mcL (0.6-4.6); Monocytes # 1.2 K/mcL (0.0-1.3); Neutrophils # 10.6 K/mcL (1.6-8.9); Reactive Lymphocytes Present (Not Present)
[2020-02-06 12:45] LABS: Platelet Estimate Increased (Normal)
[2020-02-06 12:47] LABS: Magnesium 2.5 mg/dL (1.6-2.6); Potassium 5.1 mEq/L (3.5-5.1); Troponin I 0.05 ng/mL (< 0.04)
[2020-02-06] MEDS ORDERED: Cefepime HCl 2,000 MG in Water for inj. (sterile) 20 ML IVP STA (14:18)
[2020-02-06] MEDS ORDERED: MetroNIDAZOLE 500 MG/100 ML 500 MG/100 ML BAG IVPB ONE (14:18)
[2020-02-06] MEDS ORDERED: Vancomycin 1,500 MG/265 ML IV.SOLN IVPB STA (14:23)
[2020-02-06] MEDS ORDERED: 0.9 % Sodium Chloride 250 ML IVC PRN (14:26)
[2020-02-06] MEDS ORDERED: 0.9 % Sodium Chloride 1,000 ML PRIME SCH (14:30)
[2020-02-06] MEDS ORDERED: Naloxone 0.4 MG/ML INJ IVP PRN (14:41)
[2020-02-06] MEDS ORDERED: 0.9 % Sodium Chloride 1,000 ML ONE (14:41)
[2020-02-06] MEDS ORDERED: Dextrose Gel 15 GM/37.5 ML TUBE PO PRN ×2 (14:55)
[2020-02-06] MEDS ORDERED: D5% in Water 1,000 ML IVC PRN (14:55)
[2020-02-06] MEDS ORDERED: *HR* Dextrose 50 % in Water (Vial) 50 ML VIAL IVP PRN (14:55)
[2020-02-06 15:02] LABS: Phosphorous 4.1 mg/dL (2.7-4.5)
[2020-02-06] MEDS: Insulin LISPRO 300 UNITS/3 ML VIAL SUBQ SCH (17:50)
[2020-02-06] MEDS ORDERED: *HR* OxyCODONE Immed Rel 5 MG TABLET PO PRN (18:21)
[2020-02-07 04:55] LABS: Basophils # 0.1 K/mcL (0.0-0.2); Basophils % 0.9 %; Eosinophils # 0.7 K/mcL (0.0-0.6); Eosinophils % 5.5 %; Hematocrit 42.9 % (37.5-50.1); Hemoglobin 12.2 g/dL (12.9-16.9); Immature Granulocytes % 0.5 % (0-4); Lymphocytes # 2.6 K/mcL (0.6-4.6); Lymphocytes % 19.5 %; Mean Corpuscular HGB Conc 28.4 g/dL (31.6-35.5); Mean Corpuscular Hemoglobin 25.6 pg (28.0-33.3); Mean Corpuscular Volume 90.1 fL (83.0-100.0); Mean Platelet Volume 13.9 fL (9.4-12.4); Monocytes # 1.1 K/mcL (0.0-1.3); Monocytes % 8.2 %; Neutrophils # 8.7 K/mcL (1.6-8.9); Platelet Count 578 K/mcL (140-400); Red Blood Count 4.76 M/mcL (4.19-5.50); Red Cell Distribution Width 18.2 % (11.5-14.5); Segmented Neutrophils % 65.4 %; White Blood Count 13.3 K/mcL (4.3-11.1)
[2020-02-07 05:11] LABS: INR 8.3; Prothrombin Time 90.3 Seconds (9.4-12.1)
[2020-02-07 05:18] LABS: Calcium 8.4 mg/dL (8.6-10.3); Potassium 4.6 mEq/L (3.5-5.1)
[2020-02-07] MEDS ORDERED: Cefepime HCl 2,000 MG in Water for inj. (sterile) 20 ML IVP SCH (06:00)
[2020-02-07] MEDS: Insulin LISPRO 300 UNITS/3 ML VIAL SUBQ SCH ×3 (07:57→17:06)
[2020-02-07] MEDS: Metoprolol XL (24 HR) Succ 50 MG TAB.ER.24H PO SCH (08:32)
[2020-02-07] MEDS ORDERED: Acetaminophen 325 MG TABLET PO PRN (09:17)
[2020-02-07] MEDS ORDERED: Nitroglycerin 0.4 MG TAB.SUBL SL PRN (09:17)
[2020-02-07] MEDS: Calcium Acetate 667 MG CAPSULE PO SCH ×2 (11:35→17:10)
[2020-02-07] MEDS: Sucralfate 1 GM TABLET PO SCH (17:10)
[2020-02-07 19:56] LABS: INR 1.4; Prothrombin Time 15.8 Seconds (9.4-12.1)
[2020-02-07] MEDS: Sennosides 8.6 MG TABLET PO SCH (21:13)
[2020-02-08 06:42] LABS: Basophils # 0.1 K/mcL (0.0-0.2); Basophils % 0.8 %; Eosinophils % 6.5 %; Hematocrit 39.2 % (37.5-50.1); Hemoglobin 11.5 g/dL (12.9-16.9); Immature Granulocytes % 0.6 % (0-4); Immature Platelets 12.1 % (1.1-6.1); Lymphocytes # 2.7 K/mcL (0.6-4.6); Lymphocytes % 17.1 %; Mean Corpuscular HGB Conc 29.3 g/dL (31.6-35.5); Mean Corpuscular Hemoglobin 26.6 pg (28.0-33.3); Mean Corpuscular Volume 90.7 fL (83.0-100.0); Mean Platelet Volume 13.1 fL (9.4-12.4); Monocytes # 1.3 K/mcL (0.0-1.3); Monocytes % 8.4 %; Neutrophils # 10.4 K/mcL (1.6-8.9); Platelet Count 537 K/mcL (140-400); Red Blood Count 4.32 M/mcL (4.19-5.50); Red Cell Distribution Width 18.5 % (11.5-14.5); Segmented Neutrophils % 66.6 %; White Blood Count 15.6 K/mcL (4.3-11.1)
[2020-02-08 06:46] LABS: INR 1.1; Prothrombin Time 13.2 Seconds (9.4-12.1)
[2020-02-08 07:04] LABS: Calcium 8.3 mg/dL (8.6-10.3); Potassium 5.1 mEq/L (3.5-5.1)
[2020-02-08 07:06] LABS: Anisocytosis 2+ (Not Present); Hypochromasia Present (Not Present); Macrocytosis Present (Not Present); Microcytosis Present (Not Present); Platelet Estimate Increased (Normal); Poikilocytosis 1+ (Not Present)
[2020-02-08 07:07] LABS: Burr Cells 1+ (Not Present); Schistocytes 1+ (Not Present); Spherocytes 1+ (Not Present)
[2020-02-08] MEDS ORDERED: 0.9 % Sodium Chloride 250 ML IVC PRN (07:41)
[2020-02-08] MEDS ORDERED: 0.9 % Sodium Chloride 1,000 ML PRIME SCH (07:45)
[2020-02-08] MEDS: Insulin LISPRO 300 UNITS/3 ML VIAL SUBQ SCH ×3 (07:56→16:54)
[2020-02-08] MEDS ORDERED: (Ezetimibe [Zetia] 10 MG) PO SCH (09:00)
[2020-02-08] MEDS ORDERED: Saline Nasal Spray 44 ML BOTTLE NS SCH (09:00)
[2020-02-08] MEDS ORDERED: Fluticasone Propionate Nasal 50 MCG/SPRAY BOTTLE NS SCH (09:00)
[2020-02-08] MEDS ORDERED: polyethylene glycoL 3350 17 GM POWD.PACK PO SCH (09:00)
[2020-02-08] MEDS ORDERED: Renal Vitamin 1 CAP CAPSULE PO SCH (09:00)
[2020-02-08] MEDS ORDERED: Aspirin Enteric Coated 81 MG Tablet PO SCH (09:00)
[2020-02-08] MEDS: Sucralfate 1 GM TABLET PO SCH (09:13)
[2020-02-08] MEDS: Sennosides 8.6 MG TABLET PO SCH (09:13)
[2020-02-08] MEDS: Calcium Acetate 667 MG CAPSULE PO SCH ×2 (09:13→13:56)
[2020-02-08] MEDS: Metoprolol XL (24 HR) Succ 50 MG TAB.ER.24H PO SCH (13:56)
[2020-02-08 15:32] VITALS: BP 160/73
[2020-02-08] MEDS ORDERED: Cefepime HCl 1,000 MG in Water for inj. (sterile) 10 ML IVP SCH (16:00)
[2020-02-09 15:09] LABS: Total Volume 24 Hour,Urine 0.38 Liters (0.80-1.80)
[2020-02-10 08:39] LABS: Creatinine 24 Hour,Urine 224 mg/day (800-2000); Creatinine Clearance 6 mL/min (61-166); Creatinine,Urine 59 mg/dL; Microalbumin,Urine > 1350 mg/L; Sodium, Urine 45.1 mEq/L; Total Protein 24 Hour,Urine 4731 mg/day (50-80)
== END 2020-02-08 18:01 ==
LOC: 2ANU 11:37 → EMEROOARM 11:37 → SUATTDRO 14:14 → 2ANU 15:40
PROVIDERS: ADMIT Family Medicine; ATTEND Internal Medicine

== ENCOUNTER 2020-05-11 19:30 | Inpatient (IN) ==
[2020-05-11 21:30] LABS: Basophils % 0.5 %; Eosinophils % 1.7 %; Nucleated Red Blood Cells 0.1 /100 WBC (0); Red Blood Count 4.67 M/mcL (4.19-5.50)
[2020-05-11 21:31] LABS: Basophils # 0.1 K/mcL (0.0-0.2); Eosinophils # 0.4 K/mcL (0.0-0.6); Hematocrit 44.4 % (37.5-50.1); Hemoglobin 12.8 g/dL (12.9-16.9); Immature Granulocytes % 0.5 % (0-4); Lymphocytes # 3.3 K/mcL (0.6-4.6); Lymphocytes % 12.7 %; Mean Corpuscular HGB Conc 28.8 g/dL (31.6-35.5); Mean Corpuscular Hemoglobin 27.4 pg (28.0-33.3); Mean Corpuscular Volume 95.1 fL (83.0-100.0); Mean Platelet Volume 11.5 fL (9.4-12.4); Monocytes % 7.9 %; Neutrophils # 19.8 K/mcL (1.6-8.9); Platelet Count 621 K/mcL (140-400); Red Cell Distribution Width 19.9 % (11.5-14.5); Segmented Neutrophils % 76.7 %; White Blood Count 25.8 K/mcL (4.3-11.1)
[2020-05-11 21:50] LABS: Calcium 8.1 mg/dL (8.6-10.3); Potassium 3.5 mEq/L (3.5-5.1)
[2020-05-11 22:04] LABS: Anisocytosis 1+ (Not Present)
[2020-05-11 22:05] LABS: Large Platelets Present (Not Present); Platelet Estimate Increased (Normal)
[2020-05-11] MEDS ORDERED: 0.9 % Sodium Chloride 1,000 ML IVC ONE (22:18)
[2020-05-11] MEDS ORDERED: Piperacillin/Tazobactam 3.375 GM in Water for inj. (sterile) 20 ML IVP ONE (22:19)
[2020-05-11 22:45] LABS: Albumin 2.1 g/dL (3.5-5.7); Albumin/Globulin Ratio 0.7 (1.1-2.2); Bilirubin,Direct 0.1 mg/dL (0.0-0.2); Bilirubin,Indirect 0.2 mg/dL (0.0-1.0); Bilirubin,Total 0.3 mg/dL (0.3-1.0); Globulin 3.2 g/dL (2.4-3.5); Magnesium 2.1 mg/dL (1.6-2.6); Total Protein 5.3 g/dL (6.4-8.9)
[2020-05-11 22:48] LABS: INR 3.1; Prothrombin Time 34.4 Seconds (9.4-12.1); Troponin I 0.05 ng/mL (< 0.04)
[2020-05-11 22:51] LABS: Activated Partial Thrombo Time 42.1 Seconds (26.0-36.0)
[2020-05-11] MEDS ORDERED: Vancomycin 1,500 MG/265 ML IV.SOLN IVPB ONE (23:00)
[2020-05-12] MEDS ORDERED: Melatonin 3 MG TABLET PO PRN (00:01)
[2020-05-12] MEDS ORDERED: Ondansetron 4 MG/2 ML VIAL IVP PRN (00:01)
[2020-05-12] MEDS ORDERED: Naloxone 0.4 MG/ML INJ IVP PRN (00:01)
[2020-05-12] MEDS: Meropenem 1,000 MG in Water for inj. (sterile) 20 ML IVP SCH ×2 (05:33→17:36)
[2020-05-12] MEDS ORDERED: Vancomycin 1 EACH in 0.9 % Sodium Chloride 250 ML IVPB PRN (06:00)
[2020-05-12 06:09] LABS: Basophils % 0.6 %; Immature Granulocytes % 0.6 % (0-4); Nucleated Red Blood Cells 0.1 /100 WBC (0); Segmented Neutrophils % 70.7 %
[2020-05-12 06:11] LABS: Eosinophils # 0.7 K/mcL (0.0-0.6); Eosinophils % 2.8 %; Hematocrit 43.5 % (37.5-50.1); Hemoglobin 12.5 g/dL (12.9-16.9); Lymphocytes % 14.7 %; Mean Corpuscular HGB Conc 28.7 g/dL (31.6-35.5); Mean Corpuscular Hemoglobin 27.5 pg (28.0-33.3); Mean Corpuscular Volume 95.6 fL (83.0-100.0); Monocytes # 2.5 K/mcL (0.0-1.3); Monocytes % 10.6 %; Neutrophils # 16.5 K/mcL (1.6-8.9); Platelet Count 508 K/mcL (140-400); Red Blood Count 4.55 M/mcL (4.19-5.50); Red Cell Distribution Width 19.8 % (11.5-14.5); White Blood Count 23.4 K/mcL (4.3-11.1)
[2020-05-12 06:22] LABS: Basophils # 0.1 K/mcL (0.0-0.2); Lymphocytes # 3.4 K/mcL (0.6-4.6)
[2020-05-12 06:34] LABS: Troponin I 0.03 ng/mL (< 0.04)
[2020-05-12] MEDS ORDERED: D5% in Water 1,000 ML IVC PRN (06:38)
[2020-05-12] MEDS ORDERED: Dextrose Gel 15 GM/37.5 ML TUBE PO PRN ×2 (06:38)
[2020-05-12] MEDS ORDERED: *HR* Dextrose 50 % in Water (Vial) 50 ML VIAL IVP PRN (06:38)
[2020-05-12 06:47] LABS: Anisocytosis 1+ (Not Present); Platelet Estimate Increased (Normal); Poikilocytosis 1+ (Not Present)
[2020-05-12 09:54] LABS: Nucleated Red Blood Cells 0.1 /100 WBC (0); Red Cell Distribution Width 19.7 % (11.5-14.5)
[2020-05-12 09:56] LABS: Hematocrit 45.9 % (37.5-50.1); Hemoglobin 13.2 g/dL (12.9-16.9); Mean Corpuscular HGB Conc 28.8 g/dL (31.6-35.5); Mean Corpuscular Hemoglobin 27.6 pg (28.0-33.3); Mean Platelet Volume 12.2 fL (9.4-12.4); Platelet Count 568 K/mcL (140-400); Red Blood Count 4.78 M/mcL (4.19-5.50); White Blood Count 20.1 K/mcL (4.3-11.1)
[2020-05-12 10:00] LABS: INR 3.1; Prothrombin Time 34.2 Seconds (9.4-12.1)
[2020-05-12 10:03] LABS: Activated Partial Thrombo Time 41.5 Seconds (26.0-36.0)
[2020-05-12 10:12] LABS: Calcium 7.9 mg/dL (8.6-10.3); Potassium 3.5 mEq/L (3.5-5.1)
[2020-05-12 10:26] LABS: Eosinophils # 0.4 K/mcL (0.0-0.6); Lymphocytes # 4.4 K/mcL (0.6-4.6); Monocytes # 0.4 K/mcL (0.0-1.3); Neutrophils # 14.9 K/mcL (1.6-8.9); Reactive Lymphocytes Present (Not Present); Toxic Granulation Present (Not Present)
[2020-05-12 10:27] LABS: Platelet Estimate Increased (Normal)
[2020-05-12] MEDS ORDERED: Insulin LISPRO 300 UNITS/3 ML VIAL SUBQ SCH (12:00)
[2020-05-12] MEDS ORDERED: *HR* Phytonadione 5 MG TABLET PO ONE (12:02)
[2020-05-12] MEDS ORDERED: Furosemide 40 MG/4 ML VIAL IVP ONE (12:07)
[2020-05-12] MEDS ORDERED: Nitroglycerin 0.4 MG TAB.SUBL SL PRN (14:10)
[2020-05-12] MEDS ORDERED: *HR* Enoxaparin 40 MG/0.4 ML SYRINGE SQ ONE (16:19)
[2020-05-12 16:26] LABS: Bacteria,Urine Few per hpf (None-Few); Bilirubin,Urine Negative (Negative); Blood,Urine Moderate (Negative); Clarity,Urine Turbid (Clear); Color,Urine Yellow (Yellow); Glucose,Urine (UA) 200 mg/dL (Normal); Ketones,Urine Negative (Negative); Leukocyte Esterase,Urine Small (Negative); Nitrite,Urine Negative (Negative); Protein,Urine >=600 mg/dL (Neg-Trace); RBC,Urine 15-30 per hpf (0-3); Squamous Epithelial Cell,Urine Few per hpf (None-Few); Urobilinogen,Urine Normal (Normal); WBC,Urine 50-100 per hpf (0-3)
[2020-05-12] MEDS: Insulin LISPRO 300 UNITS/3 ML VIAL SUBQ SCH ×2 (17:41→21:28)
[2020-05-12] MEDS ORDERED: Gadolinium Contrast Agent (WT Based) IV PRN (17:49)
[2020-05-12] MEDS ORDERED: Warfarin perPT PO PRN (18:00)
[2020-05-12] MEDS ORDERED: *HR* Warfarin 2 MG TABLET PO ONE (18:00)
[2020-05-12] MEDS: Insulin DETEMIR 100 UNIT/ML X5UNITS SUBQ SCH (21:27)
[2020-05-12] MEDS: Sennosides 8.6 MG TABLET PO SCH (21:27)
[2020-05-13 01:32] LABS: Basophils % 0.6 %; Eosinophils % 3.3 %; Immature Granulocytes % 0.5 % (0-4)
[2020-05-13 01:34] LABS: Basophils # 0.1 K/mcL (0.0-0.2); Eosinophils # 0.7 K/mcL (0.0-0.6); Hematocrit 43.6 % (37.5-50.1); Hemoglobin 12.7 g/dL (12.9-16.9); Lymphocytes # 3.3 K/mcL (0.6-4.6); Lymphocytes % 14.6 %; Mean Corpuscular HGB Conc 29.1 g/dL (31.6-35.5); Mean Corpuscular Hemoglobin 27.5 pg (28.0-33.3); Mean Corpuscular Volume 94.6 fL (83.0-100.0); Mean Platelet Volume 11.8 fL (9.4-12.4); Monocytes % 9.2 %; Platelet Count 566 K/mcL (140-400); Red Blood Count 4.61 M/mcL (4.19-5.50); Red Cell Distribution Width 19.7 % (11.5-14.5); Segmented Neutrophils % 71.8 %; White Blood Count 22.3 K/mcL (4.3-11.1)
[2020-05-13 01:36] LABS: Monocytes # 2.1 K/mcL (0.0-1.3)
[2020-05-13 01:38] LABS: INR 1.9; Prothrombin Time 21.6 Seconds (9.4-12.1)
[2020-05-13 01:50] LABS: Calcium 7.7 mg/dL (8.6-10.3); Potassium 3.6 mEq/L (3.5-5.1)
[2020-05-13 01:58] LABS: Hypochromasia Present (Not Present)
[2020-05-13 01:59] LABS: Anisocytosis 1+ (Not Present); Large Platelets Present (Not Present); Platelet Estimate Marked Increase (Normal); Poikilocytosis 1+ (Not Present)
[2020-05-13 02:00] LABS: Reactive Lymphocytes Present (Not Present)
[2020-05-13] MEDS ORDERED: *HR* Enoxaparin 40 MG/0.4 ML SYRINGE SQ SCH (06:00)
[2020-05-13] MEDS: Meropenem 1,000 MG in Water for inj. (sterile) 20 ML IVP SCH (06:07)
[2020-05-13] MEDS: Mirtazapine 15 MG TABLET PO SCH (08:54)
[2020-05-13] MEDS: Aspirin Enteric Coated 81 MG Tablet PO SCH (08:54)
[2020-05-13] MEDS: Metoprolol XL (24 HR) Succ 50 MG TAB.ER.24H PO SCH (08:54)
[2020-05-13] MEDS: Renal Vitamin 1 CAP CAPSULE PO SCH (08:54)
[2020-05-13] MEDS: Sennosides 8.6 MG TABLET PO SCH ×2 (08:55→20:08)
[2020-05-13] MEDS: Insulin LISPRO 300 UNITS/3 ML VIAL SUBQ SCH ×4 (08:55→20:09)
[2020-05-13] MEDS: (Ezetimibe [Zetia] 10 MG Tablet) PO SCH (08:56)
[2020-05-13 15:24] LABS: Total Protein,Pleural Fluid 2.2 g/dL
[2020-05-13 15:43] LABS: RBC,Pleural Fluid 5000 RBC/mcL
[2020-05-13 15:47] LABS: Appearance of Pleural Fl Hazy (Clear)
[2020-05-13 16:13] LABS: Basophils,Pleural Fluid 0 %; Eosinophils,Pleural Fluid 0 %; Monocytes,Pleural Fluid 0 %
[2020-05-13 16:16] LABS: Albumin/Globulin Ratio 0.8 (1.1-2.2); Globulin 2.6 g/dL (2.4-3.5); Total Protein 4.6 g/dL (6.4-8.9)
[2020-05-13] MEDS: Meropenem 500 MG in Water for inj. (sterile) 10 ML IVP SCH (17:43)
[2020-05-13] MEDS ORDERED: *HR* Warfarin 5 MG TABLET PO SCH (18:00)
[2020-05-13] MEDS ORDERED: Warfarin perPT PO PRN (18:00)
[2020-05-13] MEDS: *HR* OxyCODONE Immed Rel 5 MG TABLET PO PRN (18:19)
[2020-05-13] MEDS: Acetaminophen 325 MG TABLET PO PRN (20:07)
[2020-05-13] MEDS: Insulin DETEMIR 100 UNIT/ML X5UNITS SUBQ SCH (20:09)
[2020-05-14 03:42] LABS: Basophils # 0.1 K/mcL (0.0-0.2); Basophils % 0.6 %; Eosinophils # 1.3 K/mcL (0.0-0.6); Eosinophils % 5.9 %; Hematocrit 42.8 % (37.5-50.1); Hemoglobin 12.3 g/dL (12.9-16.9); Immature Granulocytes % 0.6 % (0-4); Lymphocytes # 3.4 K/mcL (0.6-4.6); Lymphocytes % 15.5 %; Mean Corpuscular HGB Conc 28.7 g/dL (31.6-35.5); Mean Corpuscular Volume 93.9 fL (83.0-100.0); Mean Platelet Volume 12.3 fL (9.4-12.4); Monocytes # 2.3 K/mcL (0.0-1.3); Monocytes % 10.5 %; Neutrophils # 14.8 K/mcL (1.6-8.9); Nucleated Red Blood Cells 0.1 /100 WBC (0); Platelet Count 600 K/mcL (140-400); Red Blood Count 4.56 M/mcL (4.19-5.50); Red Cell Distribution Width 19.3 % (11.5-14.5); Segmented Neutrophils % 66.9 %; White Blood Count 22.1 K/mcL (4.3-11.1)
[2020-05-14 03:53] LABS: INR 1.6; Prothrombin Time 18.3 Seconds (9.4-12.1)
[2020-05-14 03:56] LABS: Calcium 7.8 mg/dL (8.6-10.3); Potassium 3.5 mEq/L (3.5-5.1)
[2020-05-14 04:36] LABS: Anisocytosis 1+ (Not Present); Hypochromasia Present (Not Present)
[2020-05-14 04:37] LABS: Large Platelets Present (Not Present); Platelet Estimate Increased (Normal); Reactive Lymphocytes Present (Not Present)
[2020-05-14] MEDS: Meropenem 500 MG in Water for inj. (sterile) 10 ML IVP SCH (05:36)
[2020-05-14] MEDS: *HR* OxyCODONE Immed Rel 5 MG TABLET PO PRN ×2 (05:39→14:46)
[2020-05-14] MEDS ORDERED: 0.9 % Sodium Chloride 2,000 ML ONE (07:12)
[2020-05-14] MEDS ORDERED: 0.9 % Sodium Chloride 250 ML IVC PRN (07:21)
[2020-05-14] MEDS ORDERED: *HR* Heparin 10,000 UNIT/10 ML VIAL IV PRN (07:21)
[2020-05-14] MEDS ORDERED: 0.9 % Sodium Chloride 1,000 ML PRIME SCH (07:30)
[2020-05-14] MEDS: Albumin 25% 25gram/100mL 25 GM/100 ML IV.SOLN IVPB PRN (09:30)
[2020-05-14] MEDS ORDERED: Albumin 25% 25gram/100mL 25 GM/100 ML IV.SOLN ONE (09:41)
[2020-05-14] MEDS: Insulin LISPRO 300 UNITS/3 ML VIAL SUBQ SCH ×4 (10:18→20:52)
[2020-05-14] MEDS: Metoprolol XL (24 HR) Succ 50 MG TAB.ER.24H PO SCH (10:19)
[2020-05-14] MEDS: Renal Vitamin 1 CAP CAPSULE PO SCH (10:19)
[2020-05-14] MEDS: Aspirin Enteric Coated 81 MG Tablet PO SCH (10:19)
[2020-05-14] MEDS: *HR* OxyCODONE Immed Rel 5 MG TABLET PO SCH (10:19)
[2020-05-14] MEDS: Mirtazapine 15 MG TABLET PO SCH (10:19)
[2020-05-14] MEDS: (Ezetimibe [Zetia] 10 MG Tablet) PO SCH (10:19)
[2020-05-14] MEDS: Sennosides 8.6 MG TABLET PO SCH ×2 (10:19→20:51)
[2020-05-14] MEDS ORDERED: LIDOCAINE TP SCH (14:34)
[2020-05-14] MEDS: metroNIDAZOLE 500 MG TABLET PO SCH ×2 (15:35→20:51)
[2020-05-14] MEDS: Cefepime HCl 2,000 MG in Water for inj. (sterile) 20 ML IVP SCH (15:35)
[2020-05-14] MEDS ORDERED: Vancomycin 500 MG in 0.9 % Sodium Chloride Mini Bag 100 ML IVPB ONE (16:00)
[2020-05-14] MEDS ORDERED: Perflutren Lipid Microsphere 1.3 ML in 0.9 % Sodium Chloride 8.7 ML IVP PRN (16:58)
[2020-05-14] MEDS ORDERED: *HR* Warfarin 5 MG TABLET PO ONE (18:00)
[2020-05-14] MEDS: Insulin DETEMIR 100 UNIT/ML X5UNITS SUBQ SCH (20:51)
[2020-05-14] MEDS: Acetaminophen 325 MG TABLET PO PRN (20:58)
[2020-05-15] MEDS: *HR* OxyCODONE Immed Rel 5 MG TABLET PO PRN ×2 (00:22→17:36)
[2020-05-15 03:49] LABS: Basophils # 0.1 K/mcL (0.0-0.2); Basophils % 0.4 %; Eosinophils # 1.4 K/mcL (0.0-0.6); Eosinophils % 5.7 %; Hematocrit 41.3 % (37.5-50.1); Hemoglobin 12.2 g/dL (12.9-16.9); Immature Granulocytes % 0.5 % (0-4); Lymphocytes % 15.2 %; Mean Corpuscular HGB Conc 29.5 g/dL (31.6-35.5); Mean Corpuscular Hemoglobin 27.5 pg (28.0-33.3); Mean Corpuscular Volume 93.2 fL (83.0-100.0); Monocytes # 2.7 K/mcL (0.0-1.3); Monocytes % 11.1 %; Neutrophils # 16.6 K/mcL (1.6-8.9); Platelet Count 558 K/mcL (140-400); Red Blood Count 4.43 M/mcL (4.19-5.50); Red Cell Distribution Width 19.6 % (11.5-14.5); Segmented Neutrophils % 67.1 %; White Blood Count 24.7 K/mcL (4.3-11.1)
[2020-05-15 03:52] LABS: Lymphocytes # 3.8 K/mcL (0.6-4.6)
[2020-05-15 03:57] LABS: Calcium 7.5 mg/dL (8.6-10.3)
[2020-05-15 04:01] LABS: Troponin I 0.07 ng/mL (< 0.04)
[2020-05-15 04:04] LABS: INR 2.2; Prothrombin Time 25.2 Seconds (9.4-12.1)
[2020-05-15 04:09] LABS: Anisocytosis 1+ (Not Present); Hypochromasia Present (Not Present); Poikilocytosis 1+ (Not Present)
[2020-05-15 04:10] LABS: Platelet Estimate Marked Increase (Normal); Reactive Lymphocytes Present (Not Present)
[2020-05-15] MEDS: Insulin LISPRO 300 UNITS/3 ML VIAL SUBQ SCH ×4 (07:12→21:08)
[2020-05-15] MEDS: Sennosides 8.6 MG TABLET PO SCH ×2 (09:37→21:05)
[2020-05-15] MEDS: Renal Vitamin 1 CAP CAPSULE PO SCH (09:37)
[2020-05-15] MEDS: Mirtazapine 15 MG TABLET PO SCH (09:37)
[2020-05-15] MEDS: metroNIDAZOLE 500 MG TABLET PO SCH ×3 (09:37→21:05)
[2020-05-15] MEDS: Aspirin Enteric Coated 81 MG Tablet PO SCH (09:37)
[2020-05-15] MEDS: Metoprolol XL (24 HR) Succ 50 MG TAB.ER.24H PO SCH (09:38)
[2020-05-15] MEDS ORDERED: *HR* Warfarin 2.5 MG TABLET PO ONE (18:00)
[2020-05-15] MEDS: Insulin DETEMIR 100 UNIT/ML X5UNITS SUBQ SCH (21:08)
[2020-05-16 04:37] LABS: Hematocrit 43.2 % (37.5-50.1); Hemoglobin 12.7 g/dL (12.9-16.9); Mean Corpuscular HGB Conc 29.4 g/dL (31.6-35.5); Mean Corpuscular Hemoglobin 26.7 pg (28.0-33.3); Mean Corpuscular Volume 90.9 fL (83.0-100.0); Mean Platelet Volume 11.7 fL (9.4-12.4); Platelet Count 598 K/mcL (140-400); Red Blood Count 4.75 M/mcL (4.19-5.50); Red Cell Distribution Width 19.2 % (11.5-14.5); White Blood Count 23.8 K/mcL (4.3-11.1)
[2020-05-16 04:45] LABS: INR 2.3; Prothrombin Time 26.1 Seconds (9.4-12.1)
[2020-05-16 04:58] LABS: Calcium 7.3 mg/dL (8.6-10.3); Potassium 4.5 mEq/L (3.5-5.1)
[2020-05-16] MEDS ORDERED: 0.9 % Sodium Chloride 2,000 ML ONE (06:50)
[2020-05-16] MEDS ORDERED: *HR* Heparin 10,000 UNIT/10 ML VIAL IV PRN (07:16)
[2020-05-16] MEDS ORDERED: 0.9 % Sodium Chloride 250 ML IVC PRN (07:16)
[2020-05-16] MEDS ORDERED: 0.9 % Sodium Chloride 1,000 ML PRIME SCH (07:30)
[2020-05-16] MEDS ORDERED: *HR* FentaNYL (PF) 100 MCG/2 ML VIAL IVP ONE (07:38)
[2020-05-16] MEDS: Albumin 25% 25gram/100mL 25 GM/100 ML IV.SOLN IVPB PRN (09:45)
[2020-05-16] MEDS: Insulin LISPRO 300 UNITS/3 ML VIAL SUBQ SCH ×4 (10:04→20:40)
[2020-05-16] MEDS: Sennosides 8.6 MG TABLET PO SCH ×2 (13:04→20:38)
[2020-05-16] MEDS: metroNIDAZOLE 500 MG TABLET PO SCH ×3 (13:04→20:38)
[2020-05-16] MEDS: Mirtazapine 15 MG TABLET PO SCH (13:05)
[2020-05-16] MEDS: Aspirin Enteric Coated 81 MG Tablet PO SCH (13:05)
[2020-05-16] MEDS: Metoprolol XL (24 HR) Succ 50 MG TAB.ER.24H PO SCH (13:05)
[2020-05-16] MEDS: *HR* OxyCODONE Immed Rel 5 MG TABLET PO SCH (13:06)
[2020-05-16] MEDS: *HR* OxyCODONE Immed Rel 5 MG TABLET PO PRN ×2 (13:06→20:39)
[2020-05-16] MEDS: Renal Vitamin 1 CAP CAPSULE PO SCH (13:13)
[2020-05-16] MEDS ORDERED: Vancomycin 500 MG in 0.9 % Sodium Chloride Mini Bag 100 ML IVPB ONE (16:00)
[2020-05-16] MEDS: Cefepime HCl 2,000 MG in Water for inj. (sterile) 20 ML IVP SCH (16:05)
[2020-05-16] MEDS ORDERED: Calcium Gluconate 1gm/50mL 1 GM/50 ML BAG IVPB ONE (17:18)
[2020-05-16] MEDS ORDERED: *HR* Warfarin 5 MG TABLET PO ONE (18:00)
[2020-05-16] MEDS: Insulin DETEMIR 100 UNIT/ML X5UNITS SUBQ SCH (20:39)
[2020-05-16 21:04] LABS: Hematocrit 37.5 % (37.5-50.1)
[2020-05-16 21:05] LABS: Hemoglobin 11.1 g/dL (12.9-16.9)
[2020-05-17] MEDS ORDERED: *HR* HYDROcodone/Acet 5/325 mg TABLET PO ONE (02:49)
[2020-05-17 03:36] LABS: Hematocrit 37.3 % (37.5-50.1); Mean Corpuscular HGB Conc 29.5 g/dL (31.6-35.5); Mean Corpuscular Hemoglobin 27.6 pg (28.0-33.3); Mean Corpuscular Volume 93.5 fL (83.0-100.0); Mean Platelet Volume 12.2 fL (9.4-12.4); Platelet Count 551 K/mcL (140-400); Red Blood Count 3.99 M/mcL (4.19-5.50); Red Cell Distribution Width 19.4 % (11.5-14.5); White Blood Count 22.3 K/mcL (4.3-11.1)
[2020-05-17 03:38] LABS: INR 1.4
[2020-05-17 03:54] LABS: Calcium 7.7 mg/dL (8.6-10.3); Potassium 4.6 mEq/L (3.5-5.1)
[2020-05-17] MEDS: *HR* OxyCODONE Immed Rel 5 MG TABLET PO PRN ×2 (06:46→23:55)
[2020-05-17] MEDS: Sennosides 8.6 MG TABLET PO SCH ×2 (08:45→21:59)
[2020-05-17] MEDS: Mirtazapine 15 MG TABLET PO SCH (08:45)
[2020-05-17] MEDS: Aspirin Enteric Coated 81 MG Tablet PO SCH (08:45)
[2020-05-17] MEDS: Cholecalciferol (D-3) 1,000 UNIT (25MCG) TABLET PO SCH (08:45)
[2020-05-17] MEDS: Metoprolol XL (24 HR) Succ 50 MG TAB.ER.24H PO SCH (08:46)
[2020-05-17] MEDS: metroNIDAZOLE 500 MG TABLET PO SCH ×2 (08:46→15:51)
[2020-05-17] MEDS: Renal Vitamin 1 CAP CAPSULE PO SCH (08:52)
[2020-05-17] MEDS: Insulin LISPRO 300 UNITS/3 ML VIAL SUBQ SCH ×4 (10:00→22:01)
[2020-05-17] MEDS: polyethylene glycoL 3350 17 GM POWD.PACK PO SCH (11:15)
[2020-05-17] MEDS: Acetaminophen 325 MG TABLET PO PRN (11:16)
[2020-05-17] MEDS ORDERED: Acetaminophen IV 1,000 MG/100 ML BAG IVPB ONE (13:02)
[2020-05-17] MEDS: *HR* OxyCODONE Immed Rel 5 MG TABLET PO SCH (15:51)
[2020-05-17] MEDS: Insulin DETEMIR 100 UNIT/ML X5UNITS SUBQ SCH (21:59)
[2020-05-18 06:02] LABS: Hematocrit 36.5 % (37.5-50.1); Hemoglobin 10.8 g/dL (12.9-16.9); Mean Corpuscular HGB Conc 29.6 g/dL (31.6-35.5); Mean Corpuscular Hemoglobin 27.8 pg (28.0-33.3); Mean Corpuscular Volume 93.8 fL (83.0-100.0); Mean Platelet Volume 12.1 fL (9.4-12.4); Platelet Count 589 K/mcL (140-400); Red Blood Count 3.89 M/mcL (4.19-5.50); Red Cell Distribution Width 19.2 % (11.5-14.5); White Blood Count 16.5 K/mcL (4.3-11.1)
[2020-05-18 06:15] LABS: INR 1.8; Prothrombin Time 20.9 Seconds (9.4-12.1)
[2020-05-18 06:41] LABS: Albumin 2.2 g/dL (3.5-5.7); Albumin/Globulin Ratio 0.9 (1.1-2.2); Bilirubin,Indirect 0.3 mg/dL (0.0-1.0); Bilirubin,Total 0.3 mg/dL (0.3-1.0); Calcium 7.7 mg/dL (8.6-10.3); Globulin 2.4 g/dL (2.4-3.5); Potassium 4.7 mEq/L (3.5-5.1); Total Protein 4.6 g/dL (6.4-8.9)
[2020-05-18] MEDS ORDERED: 0.9 % Sodium Chloride 1,000 ML ONE (07:25)
[2020-05-18] MEDS: Insulin LISPRO 300 UNITS/3 ML VIAL SUBQ SCH ×4 (07:50→21:39)
[2020-05-18] MEDS: polyethylene glycoL 3350 17 GM POWD.PACK PO SCH (07:57)
[2020-05-18] MEDS ORDERED: 0.9 % Sodium Chloride 250 ML IVC PRN (07:57)
[2020-05-18] MEDS: Mirtazapine 15 MG TABLET PO SCH (07:57)
[2020-05-18] MEDS: Sennosides 8.6 MG TABLET PO SCH ×2 (07:57→21:42)
[2020-05-18] MEDS: Cholecalciferol (D-3) 1,000 UNIT (25MCG) TABLET PO SCH (07:57)
[2020-05-18] MEDS ORDERED: *HR* Heparin 10,000 UNIT/10 ML VIAL IV PRN (07:57)
[2020-05-18] MEDS: Aspirin Enteric Coated 81 MG Tablet PO SCH (07:57)
[2020-05-18] MEDS: Metoprolol XL (24 HR) Succ 50 MG TAB.ER.24H PO SCH (07:58)
[2020-05-18] MEDS ORDERED: 0.9 % Sodium Chloride 1,000 ML PRIME SCH (08:00)
[2020-05-18] MEDS: Renal Vitamin 1 CAP CAPSULE PO SCH (08:04)
[2020-05-18] MEDS: *HR* OxyCODONE Immed Rel 5 MG TABLET PO SCH (08:12)
[2020-05-18] MEDS ORDERED: *HR* Warfarin 5 MG TABLET PO ONE (18:00)
[2020-05-18] MEDS: Insulin DETEMIR 100 UNIT/ML X5UNITS SUBQ SCH (21:42)
[2020-05-18] MEDS: Acetaminophen 325 MG TABLET PO PRN (21:42)
[2020-05-19 05:38] LABS: Nucleated Red Blood Cells 0.1 /100 WBC (0)
[2020-05-19 05:39] LABS: Hematocrit 35.1 % (37.5-50.1); Hemoglobin 10.1 g/dL (12.9-16.9); Mean Corpuscular HGB Conc 28.8 g/dL (31.6-35.5); Mean Corpuscular Hemoglobin 27.5 pg (28.0-33.3); Mean Corpuscular Volume 95.6 fL (83.0-100.0); Mean Platelet Volume 11.8 fL (9.4-12.4); Monocytes # 2.2 K/mcL (0.0-1.3); Platelet Count 641 K/mcL (140-400); Red Blood Count 3.67 M/mcL (4.19-5.50); Red Cell Distribution Width 19.5 % (11.5-14.5); White Blood Count 18.7 K/mcL (4.3-11.1)
[2020-05-19 05:46] LABS: INR 1.9; Prothrombin Time 21.8 Seconds (9.4-12.1)
[2020-05-19] MEDS: Acetaminophen 325 MG TABLET PO PRN (05:49)
[2020-05-19 05:57] LABS: Calcium 7.8 mg/dL (8.6-10.3); Potassium 4.5 mEq/L (3.5-5.1)
[2020-05-19 07:17] LABS: Eosinophils # 0.8 K/mcL (0.0-0.6); Lymphocytes # 1.1 K/mcL (0.6-4.6); Neutrophils # 14.6 K/mcL (1.6-8.9); Platelet Estimate Normal (Normal)
[2020-05-19] MEDS: Cholecalciferol (D-3) 1,000 UNIT (25MCG) TABLET PO SCH (08:17)
[2020-05-19] MEDS: Mirtazapine 15 MG TABLET PO SCH (08:17)
[2020-05-19] MEDS: Sennosides 8.6 MG TABLET PO SCH ×2 (08:17→20:57)
[2020-05-19] MEDS: Aspirin Enteric Coated 81 MG Tablet PO SCH (08:17)
[2020-05-19] MEDS: Metoprolol XL (24 HR) Succ 50 MG TAB.ER.24H PO SCH (08:17)
[2020-05-19] MEDS: polyethylene glycoL 3350 17 GM POWD.PACK PO SCH (08:18)
[2020-05-19] MEDS: Insulin LISPRO 300 UNITS/3 ML VIAL SUBQ SCH ×4 (08:22→20:53)
[2020-05-19] MEDS: Renal Vitamin 1 CAP CAPSULE PO SCH (08:28)
[2020-05-19] MEDS: *HR* OxyCODONE Immed Rel 5 MG TABLET PO PRN ×2 (12:34→21:14)
[2020-05-19 15:16] LABS: Hematocrit 35.8 % (37.5-50.1); Hemoglobin 10.7 g/dL (12.9-16.9)
[2020-05-19] MEDS ORDERED: *HR* Warfarin 5 MG TABLET PO ONE (18:00)
[2020-05-19] MEDS: Insulin DETEMIR 100 UNIT/ML X5UNITS SUBQ SCH (20:57)
[2020-05-20 05:05] LABS: Hematocrit 36.5 % (37.5-50.1); Lymphocytes % 19.5 %
[2020-05-20 05:06] LABS: Basophils # 0.1 K/mcL (0.0-0.2); Basophils % 0.7 %; Eosinophils # 1.9 K/mcL (0.0-0.6); Eosinophils % 10.1 %; Hemoglobin 10.6 g/dL (12.9-16.9); Immature Granulocytes % 0.5 % (0-4); Lymphocytes # 3.7 K/mcL (0.6-4.6); Mean Corpuscular Volume 96.3 fL (83.0-100.0); Mean Platelet Volume 11.7 fL (9.4-12.4); Monocytes # 2.4 K/mcL (0.0-1.3); Monocytes % 12.8 %; Nucleated Red Blood Cells 0.2 /100 WBC (0); Platelet Count 707 K/mcL (140-400); Red Blood Count 3.79 M/mcL (4.19-5.50); Red Cell Distribution Width 19.2 % (11.5-14.5); Segmented Neutrophils % 56.4 %; White Blood Count 18.9 K/mcL (4.3-11.1)
[2020-05-20 05:07] LABS: Neutrophils # 10.7 K/mcL (1.6-8.9)
[2020-05-20 05:34] LABS: Anisocytosis 1+ (Not Present); Platelet Estimate Marked Increase (Normal); Reactive Lymphocytes Present (Not Present)
[2020-05-20 05:35] LABS: Basophilic Stippling 1+ (Not Present); Poikilocytosis 1+ (Not Present)
[2020-05-20] MEDS: Insulin LISPRO 300 UNITS/3 ML VIAL SUBQ SCH ×4 (09:12→22:15)
[2020-05-20] MEDS: *HR* OxyCODONE Immed Rel 5 MG TABLET PO PRN ×2 (09:21→22:22)
[2020-05-20] MEDS: Aspirin Enteric Coated 81 MG Tablet PO SCH (09:21)
[2020-05-20] MEDS: polyethylene glycoL 3350 17 GM POWD.PACK PO SCH (09:21)
[2020-05-20] MEDS: Sennosides 8.6 MG TABLET PO SCH ×2 (09:21→22:23)
[2020-05-20] MEDS: Cholecalciferol (D-3) 1,000 UNIT (25MCG) TABLET PO SCH (09:21)
[2020-05-20] MEDS: Renal Vitamin 1 CAP CAPSULE PO SCH (09:21)
[2020-05-20] MEDS: Metoprolol XL (24 HR) Succ 50 MG TAB.ER.24H PO SCH (09:21)
[2020-05-20] MEDS: Mirtazapine 15 MG TABLET PO SCH (09:21)
[2020-05-20] MEDS ORDERED: Vancomycin 1,250 MG/262.5 ML IV.SOLN IVPB ONE (16:30)
[2020-05-20] MEDS ORDERED: *HR* Warfarin 2.5 MG TABLET PO ONE (18:00)
[2020-05-20] MEDS: Insulin DETEMIR 100 UNIT/ML X5UNITS SUBQ SCH (22:22)
[2020-05-21 04:30] LABS: Basophils % 0.6 %; Nucleated Red Blood Cells 0.2 /100 WBC (0)
[2020-05-21 04:32] LABS: Basophils # 0.1 K/mcL (0.0-0.2); Eosinophils # 1.7 K/mcL (0.0-0.6); Eosinophils % 9.3 %; Hematocrit 36.8 % (37.5-50.1); Hemoglobin 10.7 g/dL (12.9-16.9); Immature Granulocytes % 0.6 % (0-4); Lymphocytes # 3.7 K/mcL (0.6-4.6); Lymphocytes % 20.7 %; Mean Corpuscular HGB Conc 29.1 g/dL (31.6-35.5); Mean Corpuscular Hemoglobin 27.8 pg (28.0-33.3); Mean Corpuscular Volume 95.6 fL (83.0-100.0); Mean Platelet Volume 11.7 fL (9.4-12.4); Monocytes % 11.3 %; Neutrophils # 10.2 K/mcL (1.6-8.9); Platelet Count 712 K/mcL (140-400); Red Blood Count 3.85 M/mcL (4.19-5.50); Red Cell Distribution Width 19.3 % (11.5-14.5); Segmented Neutrophils % 57.5 %; White Blood Count 17.7 K/mcL (4.3-11.1)
[2020-05-21 04:39] LABS: INR 2.5; Prothrombin Time 27.7 Seconds (9.4-12.1)
[2020-05-21 04:44] LABS: Calcium 8.2 mg/dL (8.6-10.3); Potassium 5.1 mEq/L (3.5-5.1)
[2020-05-21 05:02] LABS: Anisocytosis 1+ (Not Present); Hypochromasia Present (Not Present); Platelet Estimate Increased (Normal)
[2020-05-21] MEDS ORDERED: 0.9 % Sodium Chloride 250 ML IVC PRN (08:05)
[2020-05-21] MEDS ORDERED: 0.9 % Sodium Chloride 1,000 ML PRIME SCH (08:15)
[2020-05-21] MEDS: polyethylene glycoL 3350 17 GM POWD.PACK PO SCH (08:38)
[2020-05-21] MEDS: Cholecalciferol (D-3) 1,000 UNIT (25MCG) TABLET PO SCH (08:38)
[2020-05-21] MEDS: Aspirin Enteric Coated 81 MG Tablet PO SCH (08:39)
[2020-05-21] MEDS: Sennosides 8.6 MG TABLET PO SCH ×2 (08:39→21:29)
[2020-05-21] MEDS: Renal Vitamin 1 CAP CAPSULE PO SCH (08:39)
[2020-05-21] MEDS: Mirtazapine 15 MG TABLET PO SCH (08:39)
[2020-05-21] MEDS: Insulin LISPRO 300 UNITS/3 ML VIAL SUBQ SCH ×4 (08:40→21:22)
[2020-05-21] MEDS: *HR* OxyCODONE Immed Rel 5 MG TABLET PO SCH (08:45)
[2020-05-21 14:02] LABS: ABG Base Excess 4 mEq/L (-2 to 3); ABG HCO3 37 mEq/L (21-27); ABG Oxygen Saturation 96 % (95-98); ABG PCO2 109 mmHg (35-45); ABG PH 7.14 pH Units (7.32-7.45); ABG PO2 110 mmHg (85-104); ABG TCO2 40 mEq/L (20-26)
[2020-05-21 14:04] LABS: Basophils % 0.5 %; Monocytes % 12.2 %; Nucleated Red Blood Cells 0.2 /100 WBC (0)
[2020-05-21 14:06] LABS: Basophils # 0.1 K/mcL (0.0-0.2); Eosinophils # 1.5 K/mcL (0.0-0.6); Hematocrit 37.8 % (37.5-50.1); Hemoglobin 10.9 g/dL (12.9-16.9); Immature Granulocytes % 0.7 % (0-4); Lymphocytes # 2.7 K/mcL (0.6-4.6); Lymphocytes % 12.7 %; Mean Corpuscular HGB Conc 28.8 g/dL (31.6-35.5); Mean Corpuscular Hemoglobin 27.7 pg (28.0-33.3); Mean Corpuscular Volume 96.2 fL (83.0-100.0); Mean Platelet Volume 11.3 fL (9.4-12.4); Monocytes # 2.6 K/mcL (0.0-1.3); Neutrophils # 14.3 K/mcL (1.6-8.9); Platelet Count 666 K/mcL (140-400); Red Blood Count 3.93 M/mcL (4.19-5.50); Red Cell Distribution Width 18.9 % (11.5-14.5); Segmented Neutrophils % 66.9 %; White Blood Count 21.3 K/mcL (4.3-11.1)
[2020-05-21 14:12] LABS: INR 2.5; Prothrombin Time 28.2 Seconds (9.4-12.1)
[2020-05-21 14:17] LABS: Albumin 2.3 g/dL (3.5-5.7); Albumin/Globulin Ratio 0.8 (1.1-2.2); Bilirubin,Total 0.3 mg/dL (0.3-1.0); Calcium 7.7 mg/dL (8.6-10.3); Globulin 2.8 g/dL (2.4-3.5); Phosphorous 3.7 mg/dL (2.7-4.5); Potassium 4.2 mEq/L (3.5-5.1); Total Protein 5.1 g/dL (6.4-8.9)
[2020-05-21] MEDS ORDERED: Isovue-370 500 ML BOTTLE IVP ONE (14:45)
[2020-05-21 14:55] LABS: Schistocytes 1+ (Not Present); Target Cells 1+ (Not Present)
[2020-05-21 14:56] LABS: Hypochromasia Present (Not Present); Platelet Estimate Increased (Normal)
[2020-05-21] MEDS: Metoprolol XL (24 HR) Succ 50 MG TAB.ER.24H PO SCH (14:59)
[2020-05-21 15:29] LABS: ABG Base Excess 2 mEq/L (-2 to 3); ABG HCO3 31 mEq/L (21-27); ABG Oxygen Saturation 92 % (95-98); ABG PCO2 72 mmHg (35-45); ABG PH 7.25 pH Units (7.32-7.45); ABG PO2 76 mmHg (85-104); ABG TCO2 34 mEq/L (20-26); Blood Gas Modality AVAPS; Blood Gas VT 500 cc
[2020-05-21] MEDS ORDERED: Vancomycin 500 MG in 0.9 % Sodium Chloride Mini Bag 100 ML IVPB ONE (16:00)
[2020-05-21] MEDS ORDERED: *HR* Warfarin 5 MG TABLET PO ONE (18:00)
[2020-05-21] MEDS: Insulin DETEMIR 100 UNIT/ML X5UNITS SUBQ SCH (21:29)
[2020-05-22 04:03] LABS: Basophils % 0.9 %; Lymphocytes % 17.8 %; Nucleated Red Blood Cells 0.3 /100 WBC (0)
[2020-05-22 04:04] LABS: Basophils # 0.1 K/mcL (0.0-0.2); Eosinophils # 1.6 K/mcL (0.0-0.6); Eosinophils % 10.8 %; Hematocrit 35.7 % (37.5-50.1); Hemoglobin 10.4 g/dL (12.9-16.9); Immature Granulocytes % 0.3 % (0-4); Mean Corpuscular HGB Conc 29.1 g/dL (31.6-35.5); Mean Corpuscular Hemoglobin 27.7 pg (28.0-33.3); Mean Corpuscular Volume 94.9 fL (83.0-100.0); Mean Platelet Volume 11.5 fL (9.4-12.4); Monocytes # 1.9 K/mcL (0.0-1.3); Monocytes % 12.5 %; Neutrophils # 8.6 K/mcL (1.6-8.9); Platelet Count 652 K/mcL (140-400); Red Blood Count 3.76 M/mcL (4.19-5.50); Red Cell Distribution Width 19.6 % (11.5-14.5); Segmented Neutrophils % 57.7 %; White Blood Count 14.9 K/mcL (4.3-11.1)
[2020-05-22 04:19] LABS: Lymphocytes # 2.7 K/mcL (0.6-4.6)
[2020-05-22 04:23] LABS: Magnesium 2.1 mg/dL (1.6-2.6); Phosphorous 4.2 mg/dL (2.7-4.5); Potassium 4.5 mEq/L (3.5-5.1)
[2020-05-22 04:59] LABS: Anisocytosis 2+ (Not Present); Platelet Estimate Marked Increase (Normal); Target Cells 2+ (Not Present)
[2020-05-22 05:00] LABS: Poikilocytosis 2+ (Not Present)
[2020-05-22 05:32] LABS: INR 2.7; Prothrombin Time 30.5 Seconds (9.4-12.1)
[2020-05-22] MEDS: Cholecalciferol (D-3) 1,000 UNIT (25MCG) TABLET PO SCH (09:43)
[2020-05-22] MEDS: Sennosides 8.6 MG TABLET PO SCH ×2 (09:43→20:52)
[2020-05-22] MEDS: Mirtazapine 15 MG TABLET PO SCH (09:43)
[2020-05-22] MEDS: Insulin LISPRO 300 UNITS/3 ML VIAL SUBQ SCH ×4 (09:43→20:50)
[2020-05-22] MEDS: Metoprolol XL (24 HR) Succ 50 MG TAB.ER.24H PO SCH (09:43)
[2020-05-22] MEDS: Aspirin Enteric Coated 81 MG Tablet PO SCH (09:44)
[2020-05-22] MEDS: polyethylene glycoL 3350 17 GM POWD.PACK PO SCH (09:44)
[2020-05-22] MEDS: Renal Vitamin 1 CAP CAPSULE PO SCH (10:00)
[2020-05-22] MEDS ORDERED: *HR* Warfarin 2.5 MG TABLET PO ONE (18:00)
[2020-05-22] MEDS: Insulin DETEMIR 100 UNIT/ML X5UNITS SUBQ SCH (20:50)
[2020-05-23 06:24] LABS: Hematocrit 33.5 % (37.5-50.1); Hemoglobin 10.1 g/dL (12.9-16.9); Mean Corpuscular HGB Conc 30.1 g/dL (31.6-35.5); Mean Corpuscular Hemoglobin 27.8 pg (28.0-33.3); Mean Corpuscular Volume 92.3 fL (83.0-100.0); Mean Platelet Volume 12.1 fL (9.4-12.4); Platelet Count 689 K/mcL (140-400); Red Blood Count 3.63 M/mcL (4.19-5.50); Red Cell Distribution Width 19.7 % (11.5-14.5); White Blood Count 15.5 K/mcL (4.3-11.1)
[2020-05-23 06:27] LABS: INR 3.2; Prothrombin Time 35.4 Seconds (9.4-12.1)
[2020-05-23] MEDS ORDERED: 0.9 % Sodium Chloride 2,000 ML ONE (06:38)
[2020-05-23 06:40] LABS: Magnesium 2.1 mg/dL (1.6-2.6); Phosphorous 3.9 mg/dL (2.7-4.5)
[2020-05-23 06:41] LABS: Potassium 4.8 mEq/L (3.5-5.1)
[2020-05-23] MEDS ORDERED: 0.9 % Sodium Chloride 250 ML IVC PRN (07:34)
[2020-05-23] MEDS: Insulin LISPRO 300 UNITS/3 ML VIAL SUBQ SCH ×4 (07:53→21:28)
[2020-05-23] MEDS ORDERED: *HR* OxyCODONE Immed Rel 5 MG TABLET PO ONE (08:30)
[2020-05-23] MEDS: Aspirin Enteric Coated 81 MG Tablet PO SCH (08:46)
[2020-05-23] MEDS: Cholecalciferol (D-3) 1,000 UNIT (25MCG) TABLET PO SCH (08:46)
[2020-05-23] MEDS ORDERED: *HR* Phytonadione 5 MG TABLET PO ONE (11:54)
[2020-05-23] MEDS: Sennosides 8.6 MG TABLET PO SCH ×2 (13:47→21:27)
[2020-05-23] MEDS: Renal Vitamin 1 CAP CAPSULE PO SCH (13:48)
[2020-05-23] MEDS: Metoprolol XL (24 HR) Succ 50 MG TAB.ER.24H PO SCH (13:48)
[2020-05-23] MEDS: Mirtazapine 15 MG TABLET PO SCH (13:48)
[2020-05-23] MEDS: polyethylene glycoL 3350 17 GM POWD.PACK PO SCH (13:49)
[2020-05-23] MEDS ORDERED: Ertapenem 1,000 MG in 0.9 % Sodium Chloride Mini Bag 100 ML IVPB SCH (17:00)
[2020-05-23] MEDS: Insulin DETEMIR 100 UNIT/ML X5UNITS SUBQ SCH (21:28)
[2020-05-24 06:21] LABS: Hematocrit 34.9 % (37.5-50.1); Hemoglobin 10.5 g/dL (12.9-16.9); Mean Corpuscular HGB Conc 30.1 g/dL (31.6-35.5); Mean Corpuscular Hemoglobin 27.4 pg (28.0-33.3); Mean Corpuscular Volume 91.1 fL (83.0-100.0); Mean Platelet Volume 11.8 fL (9.4-12.4); Platelet Count 690 K/mcL (140-400); Red Blood Count 3.83 M/mcL (4.19-5.50); Red Cell Distribution Width 20.4 % (11.5-14.5); White Blood Count 15.2 K/mcL (4.3-11.1)
[2020-05-24 06:30] LABS: INR 1.5; Prothrombin Time 17.4 Seconds (9.4-12.1)
[2020-05-24] MEDS: Insulin LISPRO 300 UNITS/3 ML VIAL SUBQ SCH ×4 (08:36→21:46)
[2020-05-24] MEDS: Metoprolol XL (24 HR) Succ 50 MG TAB.ER.24H PO SCH (09:10)
[2020-05-24] MEDS: Aspirin Enteric Coated 81 MG Tablet PO SCH (09:10)
[2020-05-24] MEDS: Renal Vitamin 1 CAP CAPSULE PO SCH (09:10)
[2020-05-24] MEDS: Mirtazapine 15 MG TABLET PO SCH (09:10)
[2020-05-24] MEDS: Cholecalciferol (D-3) 1,000 UNIT (25MCG) TABLET PO SCH (09:10)
[2020-05-24] MEDS: Sennosides 8.6 MG TABLET PO SCH ×2 (09:10→21:47)
[2020-05-24] MEDS: *HR* OxyCODONE Immed Rel 5 MG TABLET PO PRN ×2 (09:11→18:30)
[2020-05-24] MEDS: polyethylene glycoL 3350 17 GM POWD.PACK PO SCH (09:16)
[2020-05-24] MEDS: Insulin DETEMIR 100 UNIT/ML X5UNITS SUBQ SCH (21:48)
[2020-05-25] MEDS: *HR* OxyCODONE Immed Rel 5 MG TABLET PO PRN (05:44)
[2020-05-25 05:54] LABS: Hematocrit 35.3 % (37.5-50.1); Hemoglobin 10.5 g/dL (12.9-16.9); Mean Corpuscular HGB Conc 29.7 g/dL (31.6-35.5); Mean Corpuscular Hemoglobin 27.6 pg (28.0-33.3); Mean Corpuscular Volume 92.9 fL (83.0-100.0); Mean Platelet Volume 12.2 fL (9.4-12.4); Platelet Count 661 K/mcL (140-400); Red Cell Distribution Width 20.2 % (11.5-14.5)
[2020-05-25 05:58] LABS: INR 1.1; Prothrombin Time 12.8 Seconds (9.4-12.1)
[2020-05-25 06:01] LABS: Calcium 8.1 mg/dL (8.6-10.3); Potassium 4.5 mEq/L (3.5-5.1)
[2020-05-25] MEDS ORDERED: 0.9 % Sodium Chloride 2,000 ML ONE (07:04)
[2020-05-25] MEDS ORDERED: 0.9 % Sodium Chloride 250 ML IVC PRN (07:31)
[2020-05-25] MEDS ORDERED: 0.9 % Sodium Chloride 1,000 ML PRIME SCH (07:45)
[2020-05-25] MEDS: Insulin LISPRO 300 UNITS/3 ML VIAL SUBQ SCH ×3 (07:51→17:29)
[2020-05-25] MEDS: polyethylene glycoL 3350 17 GM POWD.PACK PO SCH (07:51)
[2020-05-25] MEDS: Aspirin Enteric Coated 81 MG Tablet PO SCH (07:51)
[2020-05-25] MEDS: Renal Vitamin 1 CAP CAPSULE PO SCH (07:52)
[2020-05-25] MEDS: Sennosides 8.6 MG TABLET PO SCH (07:52)
[2020-05-25] MEDS: Metoprolol XL (24 HR) Succ 50 MG TAB.ER.24H PO SCH (07:52)
[2020-05-25] MEDS: Cholecalciferol (D-3) 1,000 UNIT (25MCG) TABLET PO SCH (07:52)
[2020-05-25] MEDS: Mirtazapine 15 MG TABLET PO SCH (07:52)
[2020-05-25] MEDS ORDERED: *HR* OxyCODONE Immed Rel 5 MG TABLET PO SCH (08:00)
[2020-05-25 12:57] VITALS: BP 122/76
[2020-05-25] MEDS ORDERED: Meropenem 1,000 MG in 0.9 % Sodium Chloride Mini Bag 100 ML IVPB SCH (15:00)
[2020-05-25 15:10] LABS: Influenza A PCR Negative (Negative); Influenza B PCR Negative (Negative); Resp. Syncytial Virus PCR Negative (Negative)
[2020-05-25 15:11] LABS: SARS-CoV-2 by PCR (In House) Negative (Negative)
== END 2020-05-25 18:27 | DRG 194 ==
LOC: 3ANU 19:30 → EMEROOARM 19:30 → 3ANU 05-12 00:48 → SUATTDRO 05-12 14:59
PROVIDERS: ADMIT Internal Medicine; ATTEND Internal Medicine
PROC: ENDOAPI (2020-05-25 12:00)

== ENCOUNTER 2020-08-14 15:59 | Inpatient (IN) ==
[2020-08-14] MEDS ORDERED: Melatonin 3 MG TABLET PO PRN (20:57)
[2020-08-14] MEDS ORDERED: Naloxone 0.4 MG/ML INJ IVP PRN (20:57)
[2020-08-14] MEDS ORDERED: *HR* Promethazine 25 MG/ML VIAL IM PRN (20:57)
[2020-08-14] MEDS ORDERED: Ondansetron 4 MG/2 ML VIAL IVP PRN (20:57)
[2020-08-14] MEDS ORDERED: D5% in Water 1,000 ML IVC PRN (21:14)
[2020-08-14] MEDS ORDERED: Dextrose Gel 15 GM/37.5 ML TUBE PO PRN ×2 (21:14)
[2020-08-14] MEDS ORDERED: *HR* Dextrose 50 % in Water (Vial) 50 ML VIAL IVP PRN (21:14)
[2020-08-14] MEDS ORDERED: Vancomycin 1,500 MG/265 ML IV.SOLN IVPB ONE (22:00)
[2020-08-14] MEDS: Acetaminophen 325 MG TABLET PO PRN (23:32)
[2020-08-15] MEDS: Insulin LISPRO 300 UNITS/3 ML VIAL SUBQ SCH ×4 (02:05→21:27)
[2020-08-15 03:14] LABS: Basophils % 0.5 %; Eosinophils % 2.4 %; Mean Platelet Volume 11.7 fL (9.4-12.4); Nucleated Red Blood Cells 0.2 /100 WBC (0); Platelet Count 578 K/mcL (140-400)
[2020-08-15 03:16] LABS: Basophils # 0.2 K/mcL (0.0-0.2); Eosinophils # 0.9 K/mcL (0.0-0.6); Hematocrit 34.9 % (37.5-50.1); Hemoglobin 10.4 g/dL (12.9-16.9); Lymphocytes # 2.5 K/mcL (0.6-4.6); Lymphocytes % 6.8 %; Mean Corpuscular HGB Conc 29.8 g/dL (31.6-35.5); Mean Corpuscular Hemoglobin 28.3 pg (28.0-33.3); Mean Corpuscular Volume 95.1 fL (83.0-100.0); Monocytes # 3.4 K/mcL (0.0-1.3); Monocytes % 9.3 %; Neutrophils # 29.6 K/mcL (1.6-8.9); Red Blood Count 3.67 M/mcL (4.19-5.50); Red Cell Distribution Width 16.6 % (11.5-14.5)
[2020-08-15 03:20] LABS: INR 3.6; Prothrombin Time 40.4 Seconds (9.4-12.1)
[2020-08-15 03:23] LABS: Activated Partial Thrombo Time 43.5 Seconds (26.0-36.0)
[2020-08-15 03:31] LABS: Albumin 2.2 g/dL (3.5-5.7); Albumin/Globulin Ratio 0.7 (1.1-2.2); Bilirubin,Total 0.4 mg/dL (0.3-1.0); Calcium 8.1 mg/dL (8.6-10.3); Globulin 3.1 g/dL (2.4-3.5); Magnesium 2.3 mg/dL (1.6-2.6); Potassium 4.4 mEq/L (3.5-5.1); Total Protein 5.3 g/dL (6.4-8.9)
[2020-08-15 03:48] LABS: Anisocytosis 1+ (Not Present); Poikilocytosis 1+ (Not Present)
[2020-08-15] MEDS: Piperacillin/Tazobactam 3.375 GM in 0.9 % Sodium Chloride Mini Bag 100 ML IVPB SCH ×2 (05:30→17:50)
[2020-08-15 06:16] LABS: Bilirubin,Urine Negative (Negative); Blood,Urine Large (Negative); Clarity,Urine Ex.Turbid (Clear); Color,Urine Orange (Yellow); Glucose,Urine (UA) 100 mg/dL (Normal); Ketones,Urine 10 mg/dL (Negative); Leukocyte Esterase,Urine Large (Negative); Nitrite,Urine Negative (Negative); PH,Urine 6.5 pH Units (5.0-8.0); Protein,Urine >=600 mg/dL (Neg-Trace); RBC,Urine 0-3 per hpf (0-3); Specific Gravity,Urine 1.021 (1.010-1.025); Urobilinogen,Urine Normal (Normal); WBC,Urine 50-100 per hpf (0-3)
[2020-08-15] MEDS ORDERED: *HR* Heparin 10,000 UNIT/10 ML VIAL IV PRN (07:46)
[2020-08-15] MEDS ORDERED: 0.9 % Sodium Chloride 250 ML IVC PRN (07:46)
[2020-08-15] MEDS ORDERED: Albumin 25% 25gram/100mL 25 GM/100 ML IV.SOLN IVPB ONE (07:49)
[2020-08-15] MEDS: Aspirin Enteric Coated 81 MG Tablet PO SCH (07:50)
[2020-08-15] MEDS: Sennosides 8.6 MG TABLET PO SCH ×2 (07:50→20:33)
[2020-08-15] MEDS ORDERED: 0.9 % Sodium Chloride 1,000 ML PRIME SCH (08:00)
[2020-08-15] MEDS: Acetaminophen 325 MG TABLET PO PRN ×2 (14:49→20:34)
[2020-08-15] MEDS ORDERED: *HR* HYDROcodone/Acet 5/325 mg TABLET PO ONE (20:46)
[2020-08-15] MEDS: Insulin DETEMIR 100 UNIT/ML X5UNITS SUBQ SCH (21:27)
[2020-08-16] MEDS ORDERED: 0.9 % Sodium Chloride 250 ML IVC ONE (00:42)
[2020-08-16 02:52] LABS: Immature Granulocytes % 0.9 % (0-4); Lymphocytes % 5.3 %; Monocytes % 8.7 %
[2020-08-16 02:54] LABS: Basophils # 0.1 K/mcL (0.0-0.2); Basophils % 0.4 %; Eosinophils # 0.7 K/mcL (0.0-0.6); Eosinophils % 2.4 %; Hematocrit 32.3 % (37.5-50.1); Hemoglobin 9.7 g/dL (12.9-16.9); Lymphocytes # 1.6 K/mcL (0.6-4.6); Mean Corpuscular Hemoglobin 28.6 pg (28.0-33.3); Mean Corpuscular Volume 95.3 fL (83.0-100.0); Mean Platelet Volume 11.6 fL (9.4-12.4); Monocytes # 2.7 K/mcL (0.0-1.3); Neutrophils # 25.2 K/mcL (1.6-8.9); Nucleated Red Blood Cells 0.2 /100 WBC (0); Platelet Count 631 K/mcL (140-400); Red Blood Count 3.39 M/mcL (4.19-5.50); Red Cell Distribution Width 16.9 % (11.5-14.5); Segmented Neutrophils % 82.3 %
[2020-08-16 02:57] LABS: Anisocytosis 1+ (Not Present); Platelet Estimate Increased (Normal); White Blood Count 30.6 K/mcL (4.3-11.1)
[2020-08-16 03:06] LABS: Albumin 2.2 g/dL (3.5-5.7); Albumin/Globulin Ratio 0.8 (1.1-2.2); Bilirubin,Total 0.3 mg/dL (0.3-1.0); Calcium 7.8 mg/dL (8.6-10.3); Globulin 2.9 g/dL (2.4-3.5); Potassium 3.6 mEq/L (3.5-5.1); Total Protein 5.1 g/dL (6.4-8.9)
[2020-08-16] MEDS: Piperacillin/Tazobactam 3.375 GM in 0.9 % Sodium Chloride Mini Bag 100 ML IVPB SCH ×2 (05:29→17:39)
[2020-08-16] MEDS: Renal Vitamin 1 CAP CAPSULE PO SCH (08:33)
[2020-08-16] MEDS: *HR* SitaGLIPtin 25 MG TABLET PO SCH (08:33)
[2020-08-16] MEDS: Aspirin Enteric Coated 81 MG Tablet PO SCH (08:33)
[2020-08-16] MEDS: Insulin LISPRO 300 UNITS/3 ML VIAL SUBQ SCH ×4 (08:34→20:12)
[2020-08-16] MEDS: Sennosides 8.6 MG TABLET PO SCH ×2 (08:59→20:08)
[2020-08-16] MEDS: Metoprolol XL (24 HR) Succ 50 MG TAB.ER.24H PO SCH (09:04)
[2020-08-16] MEDS ORDERED: Alteplase (Cathflo) 10 MG in 0.9 % Sodium Chloride 30 ML IX ONE (12:00)
[2020-08-16] MEDS: *HR* OxyCODONE Immed Rel 5 MG TABLET PO PRN ×2 (12:09→20:08)
[2020-08-16 14:57] LABS: INR 4.8; Prothrombin Time 53.4 Seconds (9.4-12.1)
[2020-08-16] MEDS ORDERED: *HR* HYDROmorphone (PF) 1 MG/ML SYRINGE IVP ONE (16:15)
[2020-08-16] MEDS ORDERED: Warfarin perPT PO PRN (18:00)
[2020-08-16] MEDS: Insulin DETEMIR 100 UNIT/ML X5UNITS SUBQ SCH (20:11)
[2020-08-16] MEDS ORDERED: Mirtazapine 15 MG TABLET PO SCH (21:00)
[2020-08-17] MEDS ORDERED: *HR* HYDROmorphone (PF) 1 MG/ML SYRINGE IVP ONE (01:00)
[2020-08-17 03:34] LABS: Red Cell Distribution Width 16.8 % (11.5-14.5)
[2020-08-17 03:35] LABS: Hemoglobin 9.7 g/dL (12.9-16.9); Mean Corpuscular HGB Conc 28.5 g/dL (31.6-35.5); Mean Corpuscular Hemoglobin 27.7 pg (28.0-33.3); Mean Corpuscular Volume 97.1 fL (83.0-100.0); Mean Platelet Volume 12.1 fL (9.4-12.4); Platelet Count 624 K/mcL (140-400); White Blood Count 29.5 K/mcL (4.3-11.1)
[2020-08-17 03:43] LABS: INR 3.5; Prothrombin Time 39.4 Seconds (9.4-12.1)
[2020-08-17 03:54] LABS: Calcium 7.7 mg/dL (8.6-10.3); Potassium 3.9 mEq/L (3.5-5.1)
[2020-08-17] MEDS: Piperacillin/Tazobactam 3.375 GM in 0.9 % Sodium Chloride Mini Bag 100 ML IVPB SCH ×2 (04:44→16:52)
[2020-08-17] MEDS ORDERED: *HR* Heparin 10,000 UNIT/10 ML VIAL IV PRN (07:43)
[2020-08-17] MEDS ORDERED: 0.9 % Sodium Chloride 250 ML IVC PRN (07:43)
[2020-08-17] MEDS ORDERED: 0.9 % Sodium Chloride 1,000 ML PRIME SCH (07:45)
[2020-08-17] MEDS: *HR* SitaGLIPtin 25 MG TABLET PO SCH (08:19)
[2020-08-17] MEDS: Aspirin Enteric Coated 81 MG Tablet PO SCH (08:19)
[2020-08-17] MEDS: Sennosides 8.6 MG TABLET PO SCH (08:19)
[2020-08-17] MEDS: Renal Vitamin 1 CAP CAPSULE PO SCH (08:19)
[2020-08-17] MEDS: Metoprolol XL (24 HR) Succ 50 MG TAB.ER.24H PO SCH (08:20)
[2020-08-17] MEDS: Insulin LISPRO 300 UNITS/3 ML VIAL SUBQ SCH ×3 (08:36→16:51)
[2020-08-17] MEDS ORDERED: *HR* OxyCODONE Immed Rel 5 MG TABLET PO SCH (09:00)
[2020-08-17] MEDS ORDERED: Albumin 25% 25gram/100mL 25 GM/100 ML IV.SOLN IVPB ONE (09:17)
[2020-08-17 16:10] VITALS: BP 107/65
== END 2020-08-17 19:02 | disposition short-term general hospital (02) | DRG 720 ==
LOC: 2ANU → SUATTDRO 19:11
PROVIDERS: ADMIT Internal Medicine; ATTEND Internal Medicine